=== PATIENT | female | born 1955 | race Caucasian/White ===

== ENCOUNTER 2018-07-18 12:44 | Inpatient (IN) ==
[2018-07-18] MEDS ORDERED: ACETAMINOPHEN 325 MG TABLET PO PRN (15:55)
[2018-07-18] MEDS ORDERED: NALOXONE HCL 0.4 MG/ML VIAL IV PRN (15:55)
[2018-07-18] MEDS ORDERED: VANCOMYCIN PER PHARMACY IV ONE (16:14)
[2018-07-18] MEDS ORDERED: methylPREDNISolone SOD SUCC 125 MG/2 ML VIAL IV ONE (16:14)
[2018-07-18] MEDS ORDERED: PIPERACILLIN SODIUM/TAZOBACTAM 2.25 GM in DEXTROSE 5% IN WATER 50 ML IV SCH (16:15)
[2018-07-18] MEDS ORDERED: DEXTROSE 31 GM ORAL.SUSP PO PRN (16:16)
[2018-07-18] MEDS ORDERED: DEXTROSE 50% 50 ML VIAL IV PRN (16:16)
--- NOTE | 2018-07-18 16:28 | Internal Med History&Physical ---
Medical - H&P: HPI Patient information: Note initiated : 07/18/18 at 4:20 pm Service Date, if different from initiated Date: [] Patient: Cherelle Mcpherson 62 y/o F admitted on 07/18/18 for Fluid Overload. Chief Complaint: [] History of present illness: Ms. Mcpherson is a 62 year old F with h/o ESRD on HD, recently discharged from [facility] for Sepsis, Respiratory failure and pneumonia to SNF, the patient notes that at the time of discharge she was not feeling quite at baseline. The patient was admitted to the hospital with the diagnosis of chf exacerbation , copd exacerbation, sepsis and pneumonia, treated with broad spectrum antibiotics, vanco,zosyn levaquin and discharged eventually on levaquin and steroid taper The patient was supposed to get HD today as outpatient The patient has h/o ESBL ecoli pna this year? The patient notes that she was feeling short of breath, since the time of discharge, coughing but no sputum production, and tired. The patient notes that her shortness of breath has progressively been getting worse since the time of discharge. This morning she was very short of breath and she refused to go for dialysis and was sent to the emergency room for further evaluation. She was noted hypoxic with oxygen saturation around 80% as per the ED provider at [facility]. The patient had a chest x-ray done at [facility] which showed CHF as per the ED provider. The official report however chest x-ray does not mention congestive heart failure. The patient had lab work done which shows a WBC count of 10.3 hemoglobin 13 platelets 286, potassium 5.4 bicarbonate 23 BUN 48 creatinine 5.5 calcium 8.5 glucose 166. Venous blood gas shows a pH of 7.37 PCO2 46 PO2 46. BNP elevated at 15,156 was around 5000 a week ago. [facility] does not have dialysis at their center and the pillar man recommended the patient be transferred to [facility] for further management as we do have dialysis facilities available. - Constitutional Constitutional: Present: fatigue, headache(s), malaise. Absent: fever(s) - EENT Eyes: Absent: change in vision - Cardiovascular Cardiovascular: Present: dyspnea on exertion. Absent: chest pain, palpatations , pedal edema - Respiratory Respiratory: Present: cough, dyspnea, dyspnea on exertion, wheezing. Absent: hemoptysis - Gastrointestinal Gastrointestinal: Absent: loose stools, melena, nausea, vomiting - Genitourinary Genitourinary: Absent: urinary frequency, urinary urgency - Musculoskeletal Musculoskeletal: Absent: joint swelling, neck pain - Integumentary Integumentary: Absent: bleeding lesions, wounds, jaundice - Neurological Neurological: Present: headache(s). Absent: focal weakness, syncope, vertigo - Psychiatric Psychiatric: Present: anxiety, depression - Endocrine Endocrine: Absent: polydipsia, polyphagia, polyuria - Hematologic/Lymphatic Hematologic/Lymphatic: Present: easy bruising. Absent: easy bleeding - Allergic/Immunologic Allergic/Immunologic: Absent: tongue swelling, uticaria, lip swelling Medical - H&P: PMH Medical history: Medical History PAST MEDICAL HISTORY: 1. Coronary artery disease with stable angina. She has had stenting performed on 4 separate occasions. 2. End-stage renal disease for which the patient is maintained on hemodialysis as noted previously. 3. Chronic obstructive pulmonary disease, oxygen dependent. 4. Iron deficiency anemia. 5. Type 2 diabetes mellitus. 6. Atheromatous disease of the thoracic aorta extending into the great vessels of the arch. She also has moderate to high-grade stenosis of the right brachiocephalic artery at the bifurcation along with scattered plaque in the bilateral common carotid arteries. In addition, high grade stenosis is noted at the proximal aspect of the left internal carotid artery with moderate stenosis of the right proximal internal carotid artery. 7. Type 2 diabetes mellitus. 8. Frequent episodes of pneumonia. 9. Constipation. 10. Depression. 11. Osteoporosis. 12. Prior episodes of hypotension following dialysis. 13. Diastolic dysfunction, congestive heart failure. 14. Essential hypertension. 15. Dyslipidemia. 16. Renal osteodystrophy/renal bone disease. 17. Generalized anxiety disorder. 18. Cervical cancer. 19. Borderline personality disorder. 20. Migraine headaches. 21. Seizure disorder with her last episode several years ago. 22. Prior alcohol abuse. 23. Hiatal hernia. 24. Diabetic neuropathy. 25. Posttraumatic stress disorder. 26. Prior bout of hyperkalemia. 27. Prior cerebrovascular accident/transient ischemic attack. 28. Osteoarthritis/degenerative joint disease. Surgical history: 1. Status post open reduction and internal fixation of a right fibular fracture at the ankle. 2. Status post dialysis port placement. 3. Status post cardiac stenting on 4 occasions between the years of 1979 and 1999. 4. Status post section times 2. 5. Status post cholecystectomy. 6. Status post total abdominal hysterectomy with bilateral salpingo-oophorectomy for treatment of her cervical cancer. 7. Status post tonsillectomy. 8. Status post appendectomy. 9. Status post placement of several arteriovenous fistulas with failure and she is scheduled for a revision here in 4 days. 10. Status post bilateral cataract extractions. 11. Status post ovarian cyst removal. 12. Status post right rotator cuff repair. 13. Status post esophagogastroduodenoscopy. 14. Status post esophageal dilatation. 15. Status post colonoscopy with polypectomy. 16. Status post hemorrhoidal removal in 2003 and again in 2013. Pertinent family history: Mother developed coronary artery disease in her 60s expiring of congestive heart failure at 82. Father developed tuberculosis and of a motor vehicle accident at 49. One sister of gastric cancer at 65 years of age. Another sister of a brain tumor 58 years of age. She has 1 living sister suffering from multiple sclerosis. Social history: Lives at [facility] Active smoker uses THC, Denies other recreational drugs or etoh. Medical - H&P: Meds Home Medications Medication Instructions Recorded Confirmed Type Ascorbic Acid [Vitamin C] 250 mg PO BID 07/11/15 07/11/15 History Aspirin [Aspirin EC] 325 mg PO DAILY 07/11/15 07/11/15 History Atorvastatin [Lipitor] 20 mg PO HS 07/11/15 07/11/15 History Carvedilol [Coreg] 6.25 mg PO BID 07/11/15 07/11/15 History Cetirizine HCl [Zyrtec] 10 mg PO HS 07/11/15 07/11/15 History Cholecalciferol (Vitamin D3) 5,000 unit PO DAILY 07/11/15 07/11/15 History [Vitamin D] Citalopram Hydrobromide [Celexa] 40 mg PO DAILY 07/11/15 07/11/15 History Docusate Sodium [Stool Softener] 100 mg PO BID 07/11/15 07/11/15 History Furosemide [Lasix] 80 mg PO BID 07/11/15 07/11/15 History Gabapentin [Neurontin] 300 mg PO BID 07/11/15 07/11/15 History HYDROcodone/ACETAMINOPHEN [Lortab 1 tab PO Q6 PRN 07/11/15 07/11/15 History 10-325 mg Tablet] Ipratropium/Albuterol [Duoneb] 3 ml NEB Q4HP PRN 07/11/15 07/11/15 History Lisinopril [Zestril] 40 mg PO DAILY 07/11/15 07/11/15 History Montelukast [Singular] 10 mg PO HS 07/11/15 07/11/15 History Pantoprazole Sodium [Protonix] 40 mg PO DAILY 07/11/15 07/11/15 History QUEtiapine FUMARATE [Seroquel] 50 mg PO HS 07/11/15 07/11/15 History Sevelamer [Renvela] 1,600 mg PO TIDCC 07/11/15 07/11/15 History Topiramate [Topamax] 50 mg PO BID 07/11/15 07/11/15 History Vit B Cmplx 3/FA/Vit C/Biotin 1 each PO DAILY 07/11/15 07/11/15 History [Malou-Suzan Rx Tablet] amLODIPine [Norvasc] 10 mg PO DAILY 07/11/15 07/11/15 History Cefdinir 300 mg PO DAILY 5 Days capsule 07/13/15 Rx guaiFENesin/CODEINE [Robitussin AC] 10 ml PO Q4HP PRN #600 ml 07/13/15 Rx Allergies Allergy/AdvReac Type Severity Reaction Status Date / Time Sulfa (Sulfonamide Allergy Mild Rash Verified 07/11/15 05:10 Antibiotics) Medical - H&P: Exam - Constitutional Vitals: Temp Pulse Resp BP Pulse Ox 97.4 F 104 H 20 120/70 91 07/18/18 15:49 07/18/18 15:01 07/18/18 15:49 07/18/18 15:49 07/18/18 15:49 Exam: GENERAL: The patient is a well-developed, well-nourished in no apparent distress. Is alert and oriented x3. VITAL SIGNS: Reviewed and as noted elsewhere. HEENT: Head is normocephalic and atraumatic. Extraocular muscles are intact. Pupils are equal, round, and reactive to light. Nares appeared normal. Mouth appears any without lesions. Mucous membranes are moist. NECK: Normal to inspection, Supple, No lymphadenopathy or thyromegaly. LUNGS: Air entry equal on both sides, lindsay basilar crackles, lindsay exp mild wheezing, no rhonci, no accessory muscle use HEART: Regular rate and rhythm normal, S1 and S2 heard, s4 heard, S3 or Rub, Noted systolic murmur mitral and tricuspid region. ABDOMEN: Soft, nontender, and nondistended. Positive bowel sounds. No hepatosplenomegaly was noted. EXTREMITIES: No cyanosis, clubbing, rash, lesions or edema. NEUROLOGIC: Cranial nerves II through XII are grossly intact. Motor and Sensory System Grossly Intact PSYCHIATRIC: Normal affect, Normal Mood. Appropriate Behavior. SKIN: No ulceration or wounds noted, No jaundice, No rash noted. Medical - H&P: Reslt - Impressions Chest CT 07/14 Impression: The patient has numerous pulmonary nodules. The majority of which are similar to April 06, 2018. There are, however, 2 distinct rounded new lesions. One is in the lingula/left upper lobe and measures 4 cm in diameter and is either rounded pneumonia or malignancy and one is in the left lower lobe and measures 17 mm and is either rounded pneumonia or malignancy. Close follow up recommended. Abdomen and Pelvis 07/14 Impression: Abnormal appearance of the bilateral lung bases with findings suggestive of fluid overload/interstitial edema. Additionally, there are bibasilar reticular nodular infiltrates possibly representing inflammatory or infectious etiology/septic emboli. The possibility of malignancy could also be included. Post cholecystectomy. Extensive atheromatous disease. Severe renal atrophy. Hyperdense nodules on the left kidney for which I recommend a follow up CT in 3-6 months. Findings suspicious for a teratoma in the right side of the pelvis. Other observations, as above. Findings regarding the lungs were discussed with Dr. An. Chest X ray Findings & Impression: 1. Stable left sided dialysis catheter in good position. 2. Mild interval improvement in the interstitial prominence with persistent opacities in the lingula and left lower lobe. 3. Heart, diaphragms, pleura, osseous structures unchanged. 4. There is a stable background of interstitial fibrotic change. Cardiac Cath 04/15/18 ASSESSMENT: 1. Clinical history of known coronary disease with remote stenting in a patient with numerous health issues, most significantly chronic kidney failure with hemodialysis. She is now having symptoms very concerning for myocardial ischemia with chest discomfort, dyspnea and diaphoresis. 2. Patency of the stented right coronary artery. 3. Diffuse atherosclerosis with the ostial left main coronary artery being of some concern. The ability to precisely define that ostial stenosis was hampered by how thin the shelf-like lesion is. Preliminary IVUS suggested a narrowing as tight as 5.7 square millimeters. However, Chromaflo suggested that we might not be measuring exactly correct borders. It was, therefore, elected to not proceed with intervention and performed Dobutamine stress echocardiography, scheduled for later today. 4. High grade bifurcation stenosis in the unusual septal perforating system arising from the LAD artery. This is unlikely to be the cause of her symptoms. Medical - H&P: A/P - Narrative A/P Narrative: Labs done at outside hospital reviewed A/P Acute Hypoxic Respiratory failure- Due to CHF, PNA? patient is presently on L oxygen via nasal canula, try to maintain osat > 90. X ray chest is neg for chf, will get CT chest with IV contrast to r/o PE, Pneumonia/ HCAP- was treated with IV vanco /zosyn[facility]levoflox [facility], however discharged on oral levofloxacin. I noted that in notes there is mention of ESBL pna in the past. Will treat patient with IV vancomycin and IV meropenum for now, Sputum cultures (induced sputum), Blood culture ordered. Lung Mass- Noted on CT during last hospitalization, Repeat CT should help evaluate this. May need biopsy. CHF- Chest x ray neg for CHF, however Exam does have lindsay crackles, Given ESRD, pt will undergo HD today, ESRD on HD- Dr Tafoya has been consulted, HD planned Hyperkalemia- K 5.4, monitor on tele, for now, HD planned. Acute COPD exacerbation- Not sure if completely resolved. Duonebs q4hrs, IV solumedrol for now, then po prednisone 40mg qAM. DM- SSI insulin for glucose control CAD/HTN/HLD/TIA/CVA - stable, resume home medications once verified Depression/PTSD/Anxiety- Stable resume home meds once verified. Seizure disorder- Stable DVT hep sq REnal Diabetic CArdiac diet DNR code status. Medical - H&P: Qual - VTE Deep Vein Thrombosis/Pulmonary Embolism Present on Admission: No
[2018-07-18] MEDS ORDERED: IOPAMIDOL 100 ML BOTTLE IV ONE (16:32)
--- NOTE | 2018-07-18 16:52 | Cat Scan Report ---
CLINICAL INFORMATION: Chest pain. Possible pulmonary embolism. COMPARISON: Most recent previous chest x-ray dated 07/12/2015 TECHNIQUE: Axial images obtained through the chest. 60 mL intravenous contrast was administered, and scanning was performed during pulmonary arterial phase. Sagittally and coronally reformatted images were obtained. MIP reformatted images. FINDINGS: Patient is scheduled for dialysis and has a history of renal failure. Main pulmonary artery, right pulmonary artery, left pulmonary artery are negative. No intraluminal filling defect. No lobar, segmental, or subsegmental abnormalities. Examination is negative for pulmonary embolism. No evidence for right heart strain. There is very severe coronary artery calcification. Lungs are diffusely abnormal consistent with very severe emphysema. There is a left upper lobe mass which abuts the left fissure. This measures 2.5 x 2.4 x 3.7 cm. Appearance is consistent with malignancy. There are multiple other noncalcified pulmonary parenchymal masses consistent with metastases. These are bilateral. There is a paraspinal left lower lobe mass which is adjacent to the descending aorta and anterolateral lateral aspects of a vertebral body. This measures 1.8 cm maximally. No focal pulmonary parenchymal consolidation. No evidence for pneumonia. Linda and mediastinum are negative. No pathologic adenopathy. No axillary adenopathy. No supraclavicular adenopathy. Upper abdomen is negative. No hepatic mass. Caudal aspects of the liver are not imaged. There is very severe calcified atherosclerotic disease within the abdominal aorta, superior mesenteric artery, and renal arteries. The kidneys are markedly atrophic. No thoracic compression fracture. No lytic lesion. Sternum and ribs are negative IMPRESSION: 1. Negative pulmonary CTA. No pulmonary embolism 2. Very severe emphysema 3. Multiple pulmonary parenchymal masses. This may be due to primary lung cancer and multiple metastases. Metastatic disease from another primary is also possible 4. There is severe calcified atherosclerotic disease. Bilateral renal atrophy. The exam was performed using radiation dose optimization techniques including, but not limited to, automated exposure control, adjustment of the mA and/or kV according to patient size and use of iterative reconstruction technique. Interpreted and Authenticated by: Joe Mcbride 07/18/18
[2018-07-18] MEDS ORDERED: VANCOMYCIN 1,000 MG in 0.9 % SODIUM CHLORIDE 250 ML IV ONE (17:00)
[2018-07-18] MEDS: INSULIN LISPRO 1 UNIT/0.01 ML UNIT SQ SCH ×2 (17:19→22:45)
[2018-07-18] MEDS ORDERED: MEROPENEM 0.5 GM in 0.9 % SODIUM CHLORIDE 100 ML IV SCH (18:00)
[2018-07-18] MEDS: IPRATROPIUM/ALBUTEROL 3 ML AMPUL.NEB NEB SCH ×2 (18:38→23:28)
[2018-07-18] MEDS: 0.9 % SODIUM CHLORIDE 10 ML SYRINGE IV SCH (22:00)
[2018-07-18] MEDS: HEPARIN 5,000 UNIT/ML VIAL SQ SCH (22:28)
[2018-07-18] MEDS: ONDANSETRON 4 MG/2 ML VIAL IV PRN (23:31)
[2018-07-19] MEDS: 0.9 % SODIUM CHLORIDE 10 ML SYRINGE IV SCH ×4 (03:09→20:57)
[2018-07-19] MEDS: IPRATROPIUM/ALBUTEROL 3 ML AMPUL.NEB NEB SCH ×6 (03:09→23:02)
[2018-07-19 05:40] LABS: Basophils # (Auto) 0 K/mcL (0.0-0.3); Basophils % (Auto) 0.1 % (0.0-2.0); Eosinophils # (Auto) 0 K/mcL (0.0-0.7); Eosinophils % (Auto) 0 % (0.0-7.0); Granulocytes % (Auto) 86.6 % (38.0-78.0); Lymphocytes # (Auto) 0.8 K/mcL (1.5-4.8); Lymphocytes % (Auto) 7.6 % (15.5-49.0); Mean Cell Volume 92.4 fL (80.0-100.0); Mean Corpuscular HGB Conc 31.7 g/dL (31.0-36.0); Monocytes # (Auto) 0.6 K/mcL (0.1-0.9); Monocytes % (Auto) 5.7 % (1.0-12.0); Platelet Count 274 K/mcL (140-440); RBC 4.51 M/mcL (4.00-5.20); Red Cell Distribution Width 18.2 % (11.5-14.5)
[2018-07-19 05:46] LABS: ALT/SGPT 15 U/l (0-40); Albumin 3.4 gm/dL (3.2-5.2); Albumin/Globulin Ratio 1.1 (1.0-2.3); Alkaline Phosphatase 148 U/L (39-117); Bilirubin,Direct < 0.2 mg/dL (0.0-0.3); Blood Urea Nitrogen 30 mg/dl (8-23); Gamma Glutamyl Transpeptidase 62 U/L (5-36); Uric Acid 4.1 mg/dL (2.5-8.0)
[2018-07-19] MEDS ORDERED: VANCOMYCIN PER PHARMACY IV SCH (07:15)
[2018-07-19] MEDS: HEPARIN 5,000 UNIT/ML VIAL SQ SCH ×2 (08:08→20:55)
[2018-07-19] MEDS: INSULIN LISPRO 1 UNIT/0.01 ML UNIT SQ SCH ×4 (08:08→21:03)
[2018-07-19] MEDS: predniSONE 20 MG TABLET PO SCH (08:09)
[2018-07-19 08:57] LABS: Vancomycin,Random 22.8 ug/mL
[2018-07-19] MEDS ORDERED: MEROPENEM 0.5 GM VIAL IV SCH (09:00)
[2018-07-19] MEDS: ONDANSETRON 4 MG/2 ML VIAL IV PRN ×2 (09:19→16:01)
[2018-07-19] MEDS ORDERED: PNEUMOCOCCAL 23-VAL P-SAC VAC 0.5 ML VIAL IM ONE (10:00)
[2018-07-19] MEDS: MEROPENEM 0.5 GM in 0.9 % SODIUM CHLORIDE 50 ML IV SCH (13:03)
--- NOTE | 2018-07-19 14:54 | Internal Med Progress Note ---
Medical - PN: Subj Patient information: Note initiated : 07/19/18 at 2:47 pm Service Date, if different from initiated Date: [] Patient: Cherelle Mcpherson 62 y/o F admitted on 07/18/18 for Fluid Overload. Chief Complaint: [] Interval history: Ms. Mcpherson is a 62 year old F with h/o ESRD on HD, recently discharged from [facility] for Sepsis, Respiratory failure and pneumonia to SNF, the patient notes that at the time of discharge she was not feeling quite at baseline. The patient was admitted to the hospital with the diagnosis of chf exacerbation , copd exacerbation, sepsis and pneumonia, treated with broad spectrum antibiotics, vanco,zosyn levaquin and discharged eventually on levaquin and steroid taper The patient was supposed to get HD today as outpatient The patient has h/o ESBL ecoli pna this year? The patient notes that she was feeling short of breath, since the time of discharge, coughing but no sputum production, and tired. The patient notes that her shortness of breath has progressively been getting worse since the time of discharge. This morning she was very short of breath and she refused to go for dialysis and was sent to the emergency room for further evaluation. She was noted hypoxic with oxygen saturation around 80% as per the ED provider at [facility]. The patient had a chest x-ray done at [facility] which showed CHF as per the ED provider. The official report however chest x-ray does not mention congestive heart failure. The patient had lab work done which shows a WBC count of 10.3 hemoglobin 13 platelets 286, potassium 5.4 bicarbonate 23 BUN 48 creatinine 5.5 calcium 8.5 glucose 166. Venous blood gas shows a pH of 7.37 PCO2 46 PO2 46. BNP elevated at 15,156 was around 5000 a week ago. [facility] does not have dialysis at their center and the signs sales representative recommended the patient be transferred to [facility] for further management as we do have dialysis facilities available. 07/19 Patient seen and examined, no acute overnight events. The patient's oxygen needs still running between 3-4 L. She had dialysis yesterday. Labs this morning are stable. She still notes that she is significantly short of breath but better compared to yesterday. During my evaluation today she was sitting in the chair comfortable and was tolerating some crossword puzzles. I reviewed the CT findings with her as well as the possibility of there being a malignant mass on the chest CT. She notes she was unaware of this finding in the past. Reviewed with her the need for biopsy, which she agrees to. We do not have pulmonary service available at this time. Pertinent ROS: Denies headache, dizziness Denies chest pain, palpitations Improving cough and shortness of breath Denies abdominal pain, nausea or vomiting. - Constitutional Vitals: Vital Signs Temp Pulse Resp BP Pulse Ox 98.4 F 110 H 18 106/81 90 07/19/18 11:14 07/19/18 10:49 07/19/18 11:14 07/19/18 11:14 07/19/18 11:14 Period Temp Pulse Resp BP Sys/Talley Pulse Ox Last 24 Hr 97.4 F-98.4 F 52-110 16-24 86-192/27-81 89-96 Intake and Output 07/19/18 07/19/18 07/19/18 05:59 13:59 21:59 Intake Total 460 / 460 Balance 460 / 460 Weight 158 lb 8 oz Patient Weight 07/20/18 05:59 Weight 158 lb 8 oz Intake & Output: Intake & Output 07/19/18 07/19/18 07/19/18 05:59 13:59 21:59 Intake Total 460 / 460 Balance 460 / 460 Weight 158 lb 8 oz Intake: IV 100 / 100 Oral 360 / 360 Exam: Constitutional; Afebrile, cooperative, alert, not in distress. Eyes- No icterus, , No periorbital swelling Ears- Ext ear normal, hearing normal to conversation. Neck- Midline trachea, supple Respiratory system: Air entry reduced on both sides but equal on both sides. Mild expiratory wheezing noted. Much improved crackles compared to yesterday CVS- Rate rhythm regular, S1,S2 heard, no gallop, no rub. Abdomen- Soft nontender abdomen, no organomegaly, no tenderness, no guarding or rigidity, SERVICE ASSISTANT- AOOx3, moving all extremities, no gross focal deficit noted. Medical - PN: Obj Da - Labs CBC & Chem 7: 07/19/18 04:26 07/19/18 04:26 Labs: Abnormal Lab Results 07/19/18 07/19/18 04:26 04:26 RDW 18.2 H Gran % 86.6 H Lymph % (Auto) 7.6 L Gran # 8.9 H Lymph # (Auto) 0.8 L Sodium 132 L Chloride 91 L Anion Gap 18.0 H BUN 30 H Creatinine 3.7 H Glucose 294 H Phosphorus 4.8 H GGT 62 H Alkaline Phosphatase 148 H Triglycerides 163 H Meds: Medications Acetaminophen (Tylenol) 650 mg PO Q6HP PRN PRN Reason: PAIN/FEVER > 101 Hydrocodone Bitart/Acetaminophen ([place] 5/325mg) 1 tab PO Q4HP PRN PRN Reason: Pain Level > 5 Albuterol/Ipratropium (Duoneb) 3 ml NEB Q4HRT [facility] Last Admin: 07/19/18 10:35 Dose: 3 ml Dextrose (Dextrose 50%) 0 ml IV UD PRN PRN Reason: Hypoglycemia Diagnostic Test (Pha) (Accu-Chek) 1 each FS ACHS [facility] Last Admin: 07/19/18 11:51 Dose: 1 each Glucose (Insta-Glucose) 15 gm PO PRN PRN PRN Reason: Hypoglycemia Heparin Sodium (Porcine) (Heparin) 5,000 unit SQ Q12 [facility] Last Admin: 07/19/18 08:08 Dose: 5,000 unit Meropenem 0.5 gm/ Sodium (Chloride) 50 mls @ 50 mls/hr IV DAILY [facility] Last Admin: 07/19/18 13:03 Dose: 50 mls/hr Insulin Human Lispro (Humalog) [address] [facility]; Protocol Last Admin: 07/19/18 11:51 Dose: 3 units Naloxone HCl (Narcan) 0.1 mg IV Q2MIN PRN PRN Reason: Opiate Reversal Ondansetron HCl (Zofran) 4 mg IV Q4HP PRN PRN Reason: Nausea And Vomiting Last Admin: 07/19/18 09:19 Dose: 4 mg Prednisone (Prednisone) 40 mg PO QAC [facility] Last Admin: 07/19/18 08:09 Dose: 40 mg Sodium Chloride (Saline Flush) 10 ml IV Q8 [facility] Last Admin: 07/19/18 13:03 Dose: 10 ml Vancomycin HCl (Vancomycin Per Pharmacy) 1 order IV UD [facility] Medical - PN: A/P - Time Spent With Patient Total time spent is greater than 50% in coordination of care (as documented) at patient's floor/unit and/or counseling patient: - Narrative A/P Narrative: A/P Acute on chronic Hypoxic Respiratory failure-Due to CHF and COPD exacerbation, with PNA, on 4L oxygen at present, [place] oxygen is 3 L Pneumonia/ HCAP- was treated with IV vanco /zosyn/levoflox at [facility], however discharged on oral levofloxacin. I noted that in notes there is mention of ESBL pna in the past. Will treat patient with IV vancomycin and IV meropenum for now, d2 on 07/19 Sputum cultures (induced sputum), Blood culture ordered. await results Lung Mass- Noted on CT during last hospitalization, Repeat CT should help evaluate this. May need biopsy. Once Acute COPD settles will plan for biopsy. CHF- Chest x ray neg for CHF, however Exam does have lindsay crackles, s/p HD with good response ESRD on HD- Dr Tafoya has been consulted, HD as per them Hyperkalemia- resolved. Acute COPD exacerbation- Not sure if completely resolved. Duonebs q4hrs, IV solumedrol for now, then po prednisone 40mg qAM. DM- SSI insulin for glucose control CAD/HTN/HLD/TIA/CVA - stable, resume home medications once verified Depression/PTSD/Anxiety- Stable resume home meds once verified. Seizure disorder- Stable DVT hep sq REnal Diabetic CArdiac diet DNR code status. Medical - PN: Qual - VTE Deep Vein Thrombosis/Pulmonary Embolism Present on Admission: No
[2018-07-19] MEDS: HYDROcodone/APAP 5/325MG TABLET PO PRN ×2 (16:01→20:54)
[2018-07-20] MEDS: IPRATROPIUM/ALBUTEROL 3 ML AMPUL.NEB NEB SCH ×6 (03:15→22:55)
[2018-07-20 05:49] LABS: Basophils # (Auto) 0 K/mcL (0.0-0.3); Basophils % (Auto) 0.1 % (0.0-2.0); Eosinophils # (Auto) 0 K/mcL (0.0-0.7); Eosinophils % (Auto) 0.3 % (0.0-7.0); Granulocytes % (Auto) 80.7 % (38.0-78.0); Lymphocytes # (Auto) 1.4 K/mcL (1.5-4.8); Lymphocytes % (Auto) 12.2 % (15.5-49.0); Mean Cell Volume 91.7 fL (80.0-100.0); Mean Corpuscular HGB Conc 32.5 g/dL (31.0-36.0); Monocytes # (Auto) 0.8 K/mcL (0.1-0.9); Monocytes % (Auto) 6.7 % (1.0-12.0); Platelet Count 310 K/mcL (140-440); RBC 4.14 M/mcL (4.00-5.20); Red Cell Distribution Width 18.5 % (11.5-14.5)
[2018-07-20 06:17] LABS: ALT/SGPT 11 U/l (0-40); Albumin 3.3 gm/dL (3.2-5.2); Albumin/Globulin Ratio 1.4 (1.0-2.3); Alkaline Phosphatase 132 U/L (39-117); Bilirubin,Direct < 0.2 mg/dL (0.0-0.3); Blood Urea Nitrogen 63 mg/dl (8-23); Gamma Glutamyl Transpeptidase 48 U/L (5-36); Uric Acid 7.1 mg/dL (2.5-8.0)
[2018-07-20] MEDS: HYDROcodone/APAP 5/325MG TABLET PO PRN ×3 (07:37→18:33)
[2018-07-20] MEDS: predniSONE 20 MG TABLET PO SCH (07:37)
[2018-07-20] MEDS: 0.9 % SODIUM CHLORIDE 10 ML SYRINGE IV SCH ×3 (07:40→21:14)
[2018-07-20] MEDS: INSULIN LISPRO 1 UNIT/0.01 ML UNIT SQ SCH ×4 (07:40→21:21)
[2018-07-20] MEDS ORDERED: MEROPENEM 0.5 GM in 0.9 % SODIUM CHLORIDE 50 ML IV SCH ×2 (09:00→10:00)
[2018-07-20] MEDS: MEROPENEM 0.5 GM in 0.9 % SODIUM CHLORIDE 50 ML IV SCH (09:45)
[2018-07-20] MEDS: HEPARIN 5,000 UNIT/ML VIAL SQ SCH ×2 (09:53→21:13)
[2018-07-20] MEDS ORDERED: ONDANSETRON 4 MG/2 ML VIAL IV PRN (12:42)
[2018-07-20] MEDS ORDERED: DEXTROSE 50% 50 ML VIAL IV PRN (12:42)
[2018-07-20] MEDS ORDERED: VANCOMYCIN PER PHARMACY IV SCH (12:42)
[2018-07-20] MEDS ORDERED: ACETAMINOPHEN 325 MG TABLET PO PRN (12:42)
[2018-07-20] MEDS ORDERED: NALOXONE HCL 0.4 MG/ML VIAL IV PRN (12:42)
[2018-07-20] MEDS ORDERED: DEXTROSE 31 GM ORAL.SUSP PO PRN (12:42)
--- NOTE | 2018-07-20 13:01 | Internal Med Progress Note ---
Medical - PN: Subj Patient information: Note initiated : 07/20/18 at 12:58 pm Service Date, if different from initiated Date: [] Patient: Cherelle Mcpherson 62 y/o F admitted on 07/18/18 for Fluid Overload. Chief Complaint: [] Interval history: Ms. Mcpherson is a 62 year old F with h/o ESRD on HD, recently discharged from [facility] for Sepsis, Respiratory failure and pneumonia to SNF, the patient notes that at the time of discharge she was not feeling quite at baseline. The patient was admitted to the hospital with the diagnosis of chf exacerbation , copd exacerbation, sepsis and pneumonia, treated with broad spectrum antibiotics, vanco,zosyn levaquin and discharged eventually on levaquin and steroid taper The patient was supposed to get HD today as outpatient The patient has h/o ESBL ecoli pna this year? The patient notes that she was feeling short of breath, since the time of discharge, coughing but no sputum production, and tired. The patient notes that her shortness of breath has progressively been getting worse since the time of discharge. This morning she was very short of breath and she refused to go for dialysis and was sent to the emergency room for further evaluation. She was noted hypoxic with oxygen saturation around 80% as per the ED provider at [facility]. The patient had a chest x-ray done at [facility] which showed CHF as per the ED provider. The official report however chest x-ray does not mention congestive heart failure. The patient had lab work done which shows a WBC count of 10.3 hemoglobin 13 platelets 286, potassium 5.4 bicarbonate 23 BUN 48 creatinine 5.5 calcium 8.5 glucose 166. Venous blood gas shows a pH of 7.37 PCO2 46 PO2 46. BNP elevated at 15,156 was around 5000 a week ago. [facility] does not have dialysis at their center and the fine arts packer recommended the patient be transferred to [facility] for further management as we do have dialysis facilities available. 07/19 Patient seen and examined, no acute overnight events. The patient's oxygen needs still running between 3-4 L. She had dialysis yesterday. Labs this morning are stable. She still notes that she is significantly short of breath but better compared to yesterday. During my evaluation today she was sitting in the chair comfortable and was tolerating some crossword puzzles. I reviewed the CT findings with her as well as the possibility of there being a malignant mass on the chest CT. She notes she was unaware of this finding in the past. Reviewed with her the need for biopsy, which she agrees to. We do not have pulmonary service available at this time. 07/20 Pt seen examined, feels much better, no acute overnight issues Pt sleeping comfortalby today xfer to med surg She noted that she would not like to have a biopsy at this time. Advised to consider talking with family and her primary provider. Pertinent ROS: Denies headache, dizziness Denies chest pain, palpitations Denies cough or shortness of breath (much improved) Denies abdominal pain, nausea or vomiting. - Constitutional Vitals: Vital Signs Temp Pulse Resp BP Pulse Ox 97.8 F 95 H 14 120/74 90 07/20/18 11:38 07/20/18 11:38 07/20/18 11:38 07/20/18 11:38 07/20/18 08:00 Period Temp Pulse Resp BP Sys/Talley Pulse Ox Last 24 Hr 97.4 F-98.4 F 60-112 14-22 103-159/68-91 90-95 Intake and Output 07/19/18 07/20/18 07/20/18 21:59 05:59 13:59 Intake Total 240 / 240 440 / 440 50 / 50 Output Total 0 / 0 Balance 240 / 240 440 / 440 50 / 50 Weight 158 lb Intake & Output: Intake & Output 07/19/18 07/20/18 07/20/18 21:59 05:59 13:59 Intake Total 240 / 240 440 / 440 50 / 50 Output Total 0 / 0 Balance 240 / 240 440 / 440 50 / 50 Weight 158 lb Intake: IV 50 / 50 Oral 240 / 240 440 / 440 Output: Void Amount 0 / 0 Other: Meal Dinner Percent of Meal Consumed 100% Feeding Ability Independent Exam: Constitutional; Afebrile, cooperative, alert, not in distress. Respiratory system: Air Entry equal on both sides, No crackles no rhonchi. Much improved air entry today, no wheezing heard. CVS- Rate rhythm regular, S1,S2 heard, no gallop, no rub. Abdomen- Soft nontender abdomen, no organomegaly, no tenderness, no guarding or rigidity, SIGN LETTERER- AOOx3, moving all extremities, no gross focal deficit noted. Medical - PN: Obj Da - Labs CBC & Chem 7: 07/20/18 04:15 07/20/18 04:15 Labs: Abnormal Lab Results 07/20/18 07/20/18 07/19/18 04:15 04:15 04:26 WBC 11.4 H RDW 18.5 H Gran % 80.7 H Lymph % (Auto) 12.2 L Gran # 9.2 H Lymph # (Auto) 1.4 L Sodium 132 L Chloride 90 L 91 L Anion Gap 21.0 H 18.0 H BUN 63 H 30 H Creatinine 6.0 H* 3.7 H Glucose 191 H 294 H Phosphorus 4.6 H 4.8 H GGT 48 H 62 H Alkaline Phosphatase 132 H 148 H Total Protein 5.7 L Triglycerides 225 H 163 H 07/19/18 04:26 WBC RDW 18.2 H Gran % 86.6 H Lymph % (Auto) 7.6 L Gran # 8.9 H Lymph # (Auto) 0.8 L Sodium Chloride Anion Gap BUN Creatinine Glucose Phosphorus GGT Alkaline Phosphatase Total Protein Triglycerides Meds: Medications Acetaminophen (Tylenol) 650 mg PO Q6HP PRN PRN Reason: PAIN/FEVER > 101 Hydrocodone Bitart/Acetaminophen ([place] 5/325mg) 1 tab PO Q4HP PRN PRN Reason: Pain Level > 5 Albuterol/Ipratropium (Duoneb) 3 ml NEB Q4HRT [facility] Dextrose (Dextrose 50%) 0 ml IV UD PRN PRN Reason: Hypoglycemia Diagnostic Test (Pha) (Accu-Chek) 1 each FS ACHS [facility] Glucose (Insta-Glucose) 15 gm PO PRN PRN PRN Reason: Hypoglycemia Heparin Sodium (Porcine) (Heparin) 5,000 unit SQ Q12 [facility] Meropenem 0.5 gm/ Sodium (Chloride) 50 mls @ 50 mls/hr IV Q24H [facility] Insulin Human Lispro (Humalog) 0 unit SQ ACHS [facility]; Protocol Naloxone HCl (Narcan) 0.1 mg IV Q2MIN PRN PRN Reason: Opiate Reversal Ondansetron HCl (Zofran) 4 mg IV Q4HP PRN PRN Reason: Nausea And Vomiting Prednisone (Prednisone) 40 mg PO QAMCC [facility] Sodium Chloride (Saline Flush) 10 ml IV Q8 [facility] Vancomycin HCl (Vancomycin Per Pharmacy) 1 order IV UD [facility] Medical - PN: A/P - Time Spent With Patient Total time spent is greater than 50% in coordination of care (as documented) at patient's floor/unit and/or counseling patient: - Narrative A/P Narrative: A/P Acute on chronic Hypoxic Respiratory failure-Due to CHF and COPD exacerbation, with PNA, on 3L oxygen at present,back to baseline. Pneumonia/ HCAP- was treated with IV vanco /zosyn/levoflox at [facility], however discharged on oral levofloxacin. I noted that in notes there is mention of ESBL pna in the past. Will treat patient with IV vancomycin and IV meropenum for now, d3 on 07/20 Sputum cultures (induced sputum), Blood culture ordered. await results, neg growth so far. Lung Mass- Noted on CT , patient has declined a biospy, aware that this could mean that she will not live if this is cancer. I have advised her to talk with her primary provider CHF- Chest x ray neg for CHF, s/p HD ESRD on HD- Dr Tafoya has been consulted, HD as per them Hyperkalemia- resolved. Acute COPD exacerbation- improving, back to baseline oxygen needs air entry better, no wheeze noted. DM- SSI insulin for glucose control CAD/HTN/HLD/TIA/CVA - stable, resumed home medications Depression/PTSD/Anxiety- Stable resumed home meds Seizure disorder- Stable DVT hep sq Renal Diabetic Cardiac diet DNR code status. Medical - PN: Qual - VTE Deep Vein Thrombosis/Pulmonary Embolism Present on Admission: No
[2018-07-20] MEDS: FUROSEMIDE 80 MG TABLET PO SCH (14:01)
[2018-07-20] MEDS: GABAPENTIN 300 MG CAPSULE PO SCH (14:01)
[2018-07-20] MEDS: ISOSORBIDE MONONITRATE 30 MG TAB.XL.24H PO SCH (14:01)
[2018-07-20] MEDS: CLOPIDOGREL 75 MG TABLET PO SCH (14:01)
[2018-07-20] MEDS: DOCUSATE SODIUM 100 MG CAPSULE PO SCH (21:13)
[2018-07-20] MEDS: POLYVINYL ALCOHOL OPHTH DROPS 15ML BOTTLE OU SCH (21:13)
[2018-07-21] MEDS: IPRATROPIUM/ALBUTEROL 3 ML AMPUL.NEB NEB SCH ×6 (03:53→22:29)
[2018-07-21 05:47] LABS: Basophils # (Auto) 0 K/mcL (0.0-0.3); Basophils % (Auto) 0.1 % (0.0-2.0); Eosinophils # (Auto) 0 K/mcL (0.0-0.7); Eosinophils % (Auto) 0.2 % (0.0-7.0); Granulocytes % (Auto) 86.9 % (38.0-78.0); Lymphocytes # (Auto) 1.1 K/mcL (1.5-4.8); Lymphocytes % (Auto) 8.8 % (15.5-49.0); Mean Cell Volume 91.9 fL (80.0-100.0); Mean Corpuscular HGB Conc 32.5 g/dL (31.0-36.0); Monocytes # (Auto) 0.5 K/mcL (0.1-0.9); Platelet Count 319 K/mcL (140-440); RBC 3.99 M/mcL (4.00-5.20); Red Cell Distribution Width 18.2 % (11.5-14.5)
[2018-07-21 06:43] LABS: ALT/SGPT 11 U/l (0-40); Albumin 3.4 gm/dL (3.2-5.2); Albumin/Globulin Ratio 1.5 (1.0-2.3); Alkaline Phosphatase 134 U/L (39-117); Bilirubin,Direct < 0.2 mg/dL (0.0-0.3); Blood Urea Nitrogen 90 mg/dl (8-23); Gamma Glutamyl Transpeptidase 48 U/L (5-36); Uric Acid 9.7 mg/dL (2.5-8.0)
[2018-07-21] MEDS: ISOSORBIDE MONONITRATE 30 MG TAB.XL.24H PO SCH (09:10)
[2018-07-21] MEDS: predniSONE 20 MG TABLET PO SCH (09:10)
[2018-07-21] MEDS: QUEtiapine 100 MG TABLET PO SCH (09:10)
[2018-07-21] MEDS: CITALOPRAM 20 MG TABLET PO SCH (09:10)
[2018-07-21] MEDS: GABAPENTIN 300 MG CAPSULE PO SCH (09:11)
[2018-07-21] MEDS: ASPIRIN 81 MG TAB.CHEW PO SCH (09:11)
[2018-07-21] MEDS: FUROSEMIDE 80 MG TABLET PO SCH (09:11)
[2018-07-21] MEDS: CLOPIDOGREL 75 MG TABLET PO SCH (09:11)
[2018-07-21] MEDS: DOCUSATE SODIUM 100 MG CAPSULE PO SCH ×2 (09:11→22:10)
[2018-07-21] MEDS: INSULIN GLARGINE, HUMAN 1 UNIT/0.01 ML SQ SCH (09:11)
[2018-07-21] MEDS: INSULIN LISPRO 1 UNIT/0.01 ML UNIT SQ SCH ×4 (09:12→22:09)
[2018-07-21] MEDS: HEPARIN 5,000 UNIT/ML VIAL SQ SCH ×2 (09:12→22:09)
[2018-07-21] MEDS: POLYVINYL ALCOHOL OPHTH DROPS 15ML BOTTLE OU SCH ×2 (11:49→22:10)
--- NOTE | 2018-07-21 12:24 | Nephrology Consult Note ---
History of Present Illness - Reason for Consult Patient information: Note initiated : 07/21/18 at 12:22 pm Patient: RonnitCherelle 62 y/o F admitted on 07/18/18 for Fluid Overload. Consult date: 07/21/18 end stage renal disease Requesting physician: Tomi Rodriguez - Chief Complaint Shortness of breath - History of Present Illness Cherelle Mcpherson is a 62-year-old female with end-stage renal disease on chronic hemodialysis (through left internal jugular tunneled hemodialysis catheter, at [place], on [facility], followed by Dr. Tafoya), right arm AV fistula (not being used) , secondary hyperparathyroidism of renal origin, chronic anemia due to kidney disease, coronary artery disease s/p stents, chronic diastolic heart failure, hyperlipidemia, chronic hypoxic respiratory failure due to chronic obstructive pulmonary disease on continuous home oxygen, recurrent pneumonia, diabetes mellitus type 2, history of CVA, admitted on 07/18/18. Dr. Rodriguez could not reach Dr. Tafoya, his primary senior benefits analyst. Dr. Tafoya is likely out of town. Dr. Rodriguez requested nephrology consultation from [place] for hemodialysis need. Review of Systems Constitutional: lethargy, weakness Nose, mouth and throat: no nasal congestion, no sore throat Cardiovascular: no chest pain, no palpatations Respiratory: cough, dyspnea Gastrointestinal: no abdominal pain, no nausea Genitourinary: no dysuria, no hematuria Musculoskeletal: no back pain, no neck pain Integumentary: no rash, no wounds Neurological: no confusion, no headache(s) Psychiatric: no anxiety, no panic attacks Endocrine: no cold intolerance, no heat intolerance Hematologic/Lymphatic: no easy bleeding, no easy bruising Allergic/Immunologic: no tongue swelling, no uticaria Past History Past medical history: Medical History Chest pain (Acute) Congestive heart failure (Acute) Shortness of Breath (Acute) Acute hypercapnic respiratory failure (Acute) ESRD (end stage renal disease) on dialysis (Chronic) Fluid overload (Acute) Anemia of chronic disease (Chronic) HTN (hypertension) (Chronic) Past surgical history: 1. Status post open reduction and internal fixation of a right fibular fracture at the ankle. 2. Status post right arm AV fistula. 3. Status post cardiac stenting on 4 occasions between the years of 1979 and 1999. 4. Status post section times 2. 5. Status post cholecystectomy. 6. Status post total abdominal hysterectomy with bilateral salpingo-oophorectomy for treatment of her cervical cancer. 7. Status post tonsillectomy. 8. Status post appendectomy. 9. Status post placement of several arteriovenous fistulas with failure and she is scheduled for a revision here in 4 days. 10. Status post bilateral cataract extractions. 11. Status post ovarian cyst removal. 12. Status post right rotator cuff repair. 13. Status post esophagogastroduodenoscopy. 14. Status post esophageal dilatation. 15. Status post colonoscopy with polypectomy. 16. Status post hemorrhoidal removal in 2003 and again in 2013. Past family history: Mother developed coronary artery disease in her 60s expiring of congestive heart failure at 82. Father developed tuberculosis and of a motor vehicle accident at 49. One sister of gastric cancer at 65 years of age. Another sister of a brain tumor 58 years of age. She has 1 living sister suffering from multiple sclerosis. Past social history: Lives at [facility] Active smoker uses THC, Denies other recreational drugs or etoh. Medications and Allergies Home Medications Medication Instructions Recorded Confirmed Type Ascorbic Acid [Vitamin C] 250 mg PO BID 07/11/15 07/18/18 History Citalopram Hydrobromide [Celexa] 40 mg PO DAILY 07/11/15 07/18/18 History Docusate Sodium [Stool Softener] 100 mg PO BID 07/11/15 07/18/18 History Furosemide [Lasix] 80 mg PO DAILY 07/11/15 07/18/18 History Gabapentin [Neurontin] 300 mg PO DAILY 07/11/15 07/18/18 History QUEtiapine FUMARATE [Seroquel] 100 mg PO DAILY 07/11/15 07/18/18 History Vit B Cmplx 3/FA/Vit C/Biotin 1 each PO DAILY 07/11/15 07/18/18 History [[place]-Suzan Rx Tablet] Albuterol Sulfate [Ventolin] 2.5 mg NEB Q2HP PRN 07/18/18 07/18/18 History Ascorbic Acid [Vitamin C] 250 mg PO BID 07/18/18 07/18/18 History Aspirin [Aspirin EC] 81 mg PO DAILY 07/18/18 07/18/18 History Clopidogrel Bisulfate [Plavix] 75 mg PO DAILY 07/18/18 07/18/18 History Insulin Glargine, Human [Lantus] 12 unit SQ DAILY 07/18/18 07/18/18 History Isosorbide Mononitrate [Imdur] 30 mg PO DAILY 07/18/18 07/18/18 History Levofloxacin [Levaquin] 500 mg PO Q48H 07/18/18 07/18/18 History Polyvinyl Alcohol [Artificial 1 gtt OP BID 07/18/18 07/18/18 History Tears] Umeclidinium Vilantarol 1 puff INH DAILY 07/18/18 07/18/18 History predniSONE [Prednisone] 20 mg PO DAILY 07/18/18 07/18/18 History predniSONE [Prednisone] 30 mg PO DAILY 07/18/18 07/18/18 History predniSONE [Prednisone] 35 mg PO DAILY 07/18/18 07/18/18 History predniSONE [Prednisone] 40 mg PO DAILY 07/18/18 07/18/18 History Allergies Allergy/AdvReac Type Severity Reaction Status Date / Time Sulfa (Sulfonamide Allergy Mild Rash Verified 07/11/15 05:10 Antibiotics) Exam - Vital Signs Vital signs: Temp Pulse Resp BP Pulse Ox 97.7 F 99 H 20 147/86 97 07/21/18 08:00 07/21/18 11:23 07/21/18 11:23 07/21/18 08:00 07/21/18 04:00 - General Appearance General appearance: chronically ill, fatigue EENT: mucous membranes dry Neck: supple Respiratory: wheezing Cardiology: no edema Gastrointestinal: no tenderness Integumentary: warm and dry Neurologic: no focal deficit, alert and oriented x3 Musculoskeletal: no deformities Psychiatric: mood/affect appropriate, cooperative Results - Lab Results 07/21/18 04:00 07/21/18 04:00 Most recent lab results Calcium 8.1 mg/dl (8.6-10.4) L 07/21/18 04:00 Phosphorus 5.8 mg/dL (2.7-4.5) H 07/21/18 04:00 Magnesium 1.9 mg/dL (1.6-2.5) 07/21/18 04:00 Assessment and Plan (1) ESRD (end stage renal disease) on dialysis Cherelle Covert is a 62-year-old female with end-stage renal disease on chronic hemodialysis (through left internal jugular tunneled hemodialysis catheter, at [place], on MWF, followed by Dr. Tafoya), right arm AV fistula (not being used) , secondary hyperparathyroidism of renal origin, chronic anemia due to kidney disease, admitted on 07/18/18. Dr. Rodriguez could not reach Dr. Tafoya, his primary senior benefits analyst. Dr. Tafoya is likely out of town. Dr. Rodriguez requested nephrology consultation from [place] for hemodialysis need. Plan: Hemodialysis today with Revaclear 400 dialyzer for 3 hours, QB/QD 400/ 800, dialysate (Potassium 3, Bicarbonate 33, Calcium 2.5, Sodium 140), UF target 2500 ml, Heparin 2000 unit bolus, 1200 unit per hour. The patient seen and evaluated during hemodialysis at 14:15. Status: Chronic Priority: Medium
--- NOTE | 2018-07-21 14:51 | Internal Med Progress Note ---
Medical - PN: Subj Patient information: Note initiated : 07/21/18 at 2:44 pm Service Date, if different from initiated Date: [] Patient: Cherelle Mcpherson 62 y/o F admitted on 07/18/18 for Fluid Overload. Chief Complaint: [] Interval history: Ms. Mcpherson is a 62 year old F with h/o ESRD on HD, recently discharged from [facility] for Sepsis, Respiratory failure and pneumonia to SNF, the patient notes that at the time of discharge she was not feeling quite at baseline. The patient was admitted to the hospital with the diagnosis of chf exacerbation , copd exacerbation, sepsis and pneumonia, treated with broad spectrum antibiotics, vanco,zosyn levaquin and discharged eventually on levaquin and steroid taper The patient was supposed to get HD today as outpatient The patient has h/o ESBL ecoli pna this year? The patient notes that she was feeling short of breath, since the time of discharge, coughing but no sputum production, and tired. The patient notes that her shortness of breath has progressively been getting worse since the time of discharge. This morning she was very short of breath and she refused to go for dialysis and was sent to the emergency room for further evaluation. She was noted hypoxic with oxygen saturation around 80% as per the ED provider at [facility]. The patient had a chest x-ray done at [facility] which showed CHF as per the ED provider. The official report however chest x-ray does not mention congestive heart failure. The patient had lab work done which shows a WBC count of 10.3 hemoglobin 13 platelets 286, potassium 5.4 bicarbonate 23 BUN 48 creatinine 5.5 calcium 8.5 glucose 166. Venous blood gas shows a pH of 7.37 PCO2 46 PO2 46. BNP elevated at 15,156 was around 5000 a week ago. [facility] does not have dialysis at their center and the glass cylinder flanger recommended the patient be transferred to [facility] for further management as we do have dialysis facilities available. 07/19 Patient seen and examined, no acute overnight events. The patient's oxygen needs still running between 3-4 L. She had dialysis yesterday. Labs this morning are stable. She still notes that she is significantly short of breath but better compared to yesterday. During my evaluation today she was sitting in the chair comfortable and was tolerating some crossword puzzles. I reviewed the CT findings with her as well as the possibility of there being a malignant mass on the chest CT. She notes she was unaware of this finding in the past. Reviewed with her the need for biopsy, which she agrees to. We do not have pulmonary service available at this time. 07/20 Pt seen examined, feels much better, no acute overnight issues Pt sleeping comfortably today xfer to med surg She noted that she would not like to have a biopsy at this time. Advised to consider talking with family and her primary provider. 07/21 Pt seen examined, doing well, no acute complaints or concerns, breathing better labs stable Patient is to have her regular scheduled HD today, I tried to contact Dr Tafoya on his phone but was unable to reach him. I was informed that Dr Tafoya (the patients glass cylinder flanger) has left the country for vacation, there is no back up / covering glass cylinder flanger available to help with regular scheduled dialysis. Given that patient would need her regular dialysis, I called Dr Wooten to help out with dailysis today. He agreed gracefully to help out in this situation. I have informed hospital management about this incidence. The patient again refused to consider a lung biopsy, fully understands the consequences of her decision, includes due to untreated malignancy. Pertinent ROS: Denies headache, dizziness Denies chest pain, palpitations much improved cough or shortness of breath Denies abdominal pain, nausea or vomiting. - Constitutional Vitals: Vital Signs Temp Pulse Resp BP Pulse Ox 96.8 F L 104 H 97 H 92/54 92 07/21/18 13:50 07/21/18 14:33 07/21/18 12:00 07/21/18 14:33 07/21/18 12:00 Period Temp Pulse Resp BP Sys/Talley Pulse Ox Last 24 Hr 96.8 F-98.7 F 10-108 18-97 74-168/24-92 90-97 Intake and Output 07/21/18 07/21/18 07/21/18 05:59 13:59 21:59 Intake Total 250 / 250 Balance 250 / 250 Intake & Output: Intake & Output 07/21/18 07/21/18 07/21/18 05:59 13:59 21:59 Intake Total 250 / 250 Balance 250 / 250 Intake: Oral 250 / 250 Exam: Constitutional; Afebrile, cooperative, alert, not in distress. Eyes- No icterus, , No periorbital swelling Ears- Ext ear normal, hearing normal to conversation. Neck- Midline trachea, supple Respiratory system: Air Entry equal on both sides, poor air entry, mild bibasilar crackles, no wheeze, pt speaking full sentences. CVS- Rate rhythm regular, S1,S2 heard, no gallop, no rub. Abdomen- Soft nontender abdomen, no organomegaly, no tenderness, no guarding or rigidity, DINNER [employer]OOK- AOOx3, moving all extremities, no gross focal deficit noted. Medical - PN: Obj Da - Labs CBC & Chem 7: 07/21/18 04:00 07/21/18 04:00 Labs: Abnormal Lab Results 07/21/18 07/21/18 07/20/18 04:00 04:00 04:15 WBC 12.9 H RBC 3.99 L Hgb 11.9 L RDW 18.2 H Gran % 86.9 H Lymph % (Auto) 8.8 L Gran # 11.2 H Lymph # (Auto) 1.1 L Sodium Chloride 89 L 90 L Anion Gap 24.0 H 21.0 H BUN 90 H 63 H Creatinine 7.9 H* 6.0 H* Glucose 250 H 191 H Uric Acid 9.7 H Calcium 8.1 L Phosphorus 5.8 H 4.6 H GGT 48 H 48 H Alkaline Phosphatase 134 H 132 H Total Protein 5.7 L 5.7 L Triglycerides 210 H 225 H 07/20/18 07/19/18 07/19/18 04:15 04:26 04:26 WBC 11.4 H RBC Hgb RDW 18.5 H 18.2 H Gran % 80.7 H 86.6 H Lymph % (Auto) 12.2 L 7.6 L Gran # 9.2 H 8.9 H Lymph # (Auto) 1.4 L 0.8 L Sodium 132 L Chloride 91 L Anion Gap 18.0 H BUN 30 H Creatinine 3.7 H Glucose 294 H Uric Acid Calcium Phosphorus 4.8 H GGT 62 H Alkaline Phosphatase 148 H Total Protein Triglycerides 163 H Meds: Medications Acetaminophen (Tylenol) 650 mg PO Q6HP PRN PRN Reason: PAIN/FEVER > 101 Last Admin: 07/20/18 16:58 Dose: 650 mg Hydrocodone Bitart/Acetaminophen ([place] 5/325mg) 1 tab PO Q4HP PRN PRN Reason: Pain Level > 5 Last Admin: 07/20/18 18:33 Dose: 1 tab Albuterol/Ipratropium (Duoneb) 3 ml NEB Q4HRT [facility] Last Admin: 07/21/18 14:42 Dose: Not Given Artificial Tears (Artificial Tears Ophth Drops) 1 gtt OU BID [facility] Last Admin: 07/21/18 11:49 Dose: Not Given Aspirin (Aspirin) 81 mg PO DAILY [facility] Last Admin: 07/21/18 09:11 Dose: 81 mg Citalopram Hydrobromide (Celexa) 40 mg PO DAILY [facility] Last Admin: 07/21/18 09:10 Dose: 40 mg Clopidogrel Bisulfate (Plavix) 75 mg PO DAILY [facility] Last Admin: 07/21/18 09:11 Dose: 75 mg Dextrose (Dextrose 50%) 0 ml IV UD PRN PRN Reason: Hypoglycemia Diagnostic Test (Pha) (Accu-Chek) 1 each FS ACHS [facility] Last Admin: 07/21/18 12:41 Dose: 1 each Docusate Sodium (Colace) 100 mg PO BID [facility] Last Admin: 07/21/18 09:11 Dose: 100 mg Furosemide (Lasix) 80 mg PO DAILY [facility] Last Admin: 07/21/18 09:11 Dose: 80 mg Gabapentin (Neurontin) 300 mg PO DAILY [facility] Last Admin: 07/21/18 09:11 Dose: 300 mg Glucose (Insta-Glucose) 15 gm PO PRN PRN PRN Reason: Hypoglycemia Heparin Sodium (Porcine) (Heparin) 5,000 unit SQ Q12 [facility] Last Admin: 07/21/18 09:12 Dose: 5,000 unit Meropenem 0.5 gm/ Sodium (Chloride) 50 mls @ 50 mls/hr IV Q24H [facility] Insulin Glargine (Lantus) 12 unit SQ DAILY [facility] Last Admin: 07/21/18 09:11 Dose: 12 unit Insulin Human Lispro (Humalog) 0 unit SQ ACHS [facility]; Protocol Last Admin: 07/21/18 12:41 Dose: 2 unit Isosorbide Mononitrate (Imdur) 30 mg PO DAILY [facility] Last Admin: 07/21/18 09:10 Dose: 30 mg Naloxone HCl (Narcan) 0.1 mg IV Q2MIN PRN PRN Reason: Opiate Reversal Ondansetron HCl (Zofran) 4 mg IV Q4HP PRN PRN Reason: Nausea And Vomiting Prednisone (Prednisone) 40 mg PO [facility] Last Admin: 07/21/18 09:10 Dose: 40 mg Quetiapine Fumarate (Seroquel) 100 mg PO DAILY [facility] Last Admin: 07/21/18 09:10 Dose: 100 mg Sodium Chloride (Saline Flush) 10 ml IV Q8 [facility] Last Admin: 07/20/18 21:14 Dose: 10 ml Vancomycin HCl (Vancomycin Per Pharmacy) 1 order IV UD [facility] Medical - PN: A/P - Time Spent With Patient Total time spent is greater than 50% in coordination of care (as documented) at patient's floor/unit and/or counseling patient: - Narrative A/P Narrative: A/P Acute on chronic Hypoxic Respiratory failure-Due to CHF and COPD exacerbation, with PNA, on 3L oxygen at present,back to baseline. Pneumonia/ HCAP- was treated with IV vanco /zosyn/levoflox at [facility], however discharged on oral levofloxacin. I noted that in notes there is mention of ESBL pna in the past. Will treat patient with IV vancomycin and IV meropenum for now, d4 on 07/21, will give last dose of ABX tomorrow to complete a 5 day course. Sputum cultures (induced sputum), Blood culture ordered. await results, neg growth so far. Lung Mass- Noted on CT , patient has declined a biospy, aware that this could mean that she will not live if this is cancer. I have advised her to talk with her primary provider CHF- Chest x ray neg for CHF, s/p HD ESRD on HD- Dr Tafoya has been consulted however after the fist HD session, Dr Tafoya left the country for vacation, no covering nehprologist in place. Dr Wooten glass cylinder flanger with other practice had to provide needed emergency services. Hyperkalemia- resolved. Acute COPD exacerbation- improving, back to baseline oxygen needs air entry better, no wheeze noted. DM- SSI insulin for glucose control, start on lantus to help with better glucose control. CAD/HTN/HLD/TIA/CVA - stable, resumed home medications Depression/PTSD/Anxiety- Stable resumed home meds Seizure disorder- Stable DVT hep sq Renal Diabetic Cardiac diet DNR code status. Anticipate D/C SNF tomorrow. Medical - PN: Qual - VTE Deep Vein Thrombosis/Pulmonary Embolism Present on Admission: No
[2018-07-21] MEDS: 0.9 % SODIUM CHLORIDE 10 ML SYRINGE IV SCH ×3 (17:18→22:34)
[2018-07-21] MEDS: MEROPENEM 0.5 GM in 0.9 % SODIUM CHLORIDE 50 ML IV SCH (17:19)
[2018-07-21 18:25] LABS: Vancomycin,Random 9.9 ug/mL
[2018-07-22] MEDS: IPRATROPIUM/ALBUTEROL 3 ML AMPUL.NEB NEB SCH ×3 (04:05→11:08)
[2018-07-22 05:38] LABS: Basophils # (Auto) 0 K/mcL (0.0-0.3); Basophils % (Auto) 0 % (0.0-2.0); Eosinophils # (Auto) 0 K/mcL (0.0-0.7); Eosinophils % (Auto) 0.4 % (0.0-7.0); Granulocytes % (Auto) 82.7 % (38.0-78.0); Lymphocytes % (Auto) 9.5 % (15.5-49.0); Mean Cell Volume 92.3 fL (80.0-100.0); Mean Corpuscular HGB Conc 32.1 g/dL (31.0-36.0); Monocytes # (Auto) 0.8 K/mcL (0.1-0.9); Monocytes % (Auto) 7.4 % (1.0-12.0); Platelet Count 306 K/mcL (140-440); RBC 4.12 M/mcL (4.00-5.20); Red Cell Distribution Width 18.3 % (11.5-14.5)
[2018-07-22 06:56] LABS: ALT/SGPT 9 U/l (0-40); Albumin 3.5 gm/dL (3.2-5.2); Albumin/Globulin Ratio 1.5 (1.0-2.3); Alkaline Phosphatase 133 U/L (39-117); Bilirubin,Direct < 0.2 mg/dL (0.0-0.3); Blood Urea Nitrogen 64 mg/dl (8-23); Gamma Glutamyl Transpeptidase 45 U/L (5-36); Uric Acid 6.4 mg/dL (2.5-8.0)
[2018-07-22] MEDS: INSULIN LISPRO 1 UNIT/0.01 ML UNIT SQ SCH ×2 (07:30→11:43)
[2018-07-22] MEDS: 0.9 % SODIUM CHLORIDE 10 ML SYRINGE IV SCH (07:31)
[2018-07-22] MEDS ORDERED: cloNIDine HCL 0.1 MG TABLET PO PRN (08:06)
[2018-07-22] MEDS: predniSONE 20 MG TABLET PO SCH (09:11)
[2018-07-22] MEDS: DOCUSATE SODIUM 100 MG CAPSULE PO SCH (09:11)
[2018-07-22] MEDS: CLOPIDOGREL 75 MG TABLET PO SCH (09:11)
[2018-07-22] MEDS: HYDROcodone/APAP 5/325MG TABLET PO PRN (09:12)
[2018-07-22] MEDS: CITALOPRAM 20 MG TABLET PO SCH (09:12)
[2018-07-22] MEDS: ISOSORBIDE MONONITRATE 30 MG TAB.XL.24H PO SCH (09:12)
[2018-07-22] MEDS: FUROSEMIDE 80 MG TABLET PO SCH (09:12)
[2018-07-22] MEDS: GABAPENTIN 300 MG CAPSULE PO SCH (09:12)
[2018-07-22] MEDS: ASPIRIN 81 MG TAB.CHEW PO SCH (09:12)
[2018-07-22] MEDS: MEROPENEM 0.5 GM in 0.9 % SODIUM CHLORIDE 50 ML IV SCH (09:13)
[2018-07-22] MEDS: HEPARIN 5,000 UNIT/ML VIAL SQ SCH (09:13)
[2018-07-22] MEDS: INSULIN GLARGINE, HUMAN 1 UNIT/0.01 ML SQ SCH (09:13)
[2018-07-22] MEDS: QUEtiapine 100 MG TABLET PO SCH (09:13)
[2018-07-22] MEDS: POLYVINYL ALCOHOL OPHTH DROPS 15ML BOTTLE OU SCH (09:14)
--- NOTE | 2018-07-22 10:42 | Discharge Summary ---
Medical - DS: Prov Patient information: Note initiated : 07/22/18 at 10:18 am Service Date, if different from initiated Date: [] Patient: Covert,Cherelle gonzalez 62 y/o F admitted on 07/18/18 for Fluid Overload. Chief Complaint: [] Date of admission: 07/18/18 14:21 Discharge date: 07/22/18 Primary care physician: Raphael Roy Consults: 07/21/18 12:07 Consult to Physician [CONS] Routine Comment: ESRD Consulting Provider: Christian Wooten Reason For Exam: Physician to Consult Discharging clinician: Tomi Rodriguez Medical - DS: Meds - Discharge Medications Prescriptions: Ipratropium/Albuterol [Duoneb] 3 ml NEB Q6HRT #120 ampul.neb predniSONE [Pred[facility]one] [facility] [place] [facility] tab Active and Home Medications: Home Medications Ascorbic Acid [Vitamin C] 250 mg PO BID 07/11/15 [History Confirmed 07/18/18 Last Taken 1 Day Ago ~07/10/15] Citalopram Hydrobromide [Celexa] 40 mg PO DAILY 07/11/15 [History Confirmed Last Taken 07/18/18 07:30] Docusate Sodium [Stool Softener] 100 mg PO BID 07/11/15 [History Confirmed 07/18 Last Taken 1 Day Ago ~07/10/15] Furosemide [Lasix] 80 mg PO DAILY 07/11/15 [History Confirmed 07/18/18 Last Taken 07/18/18 07:30] Gabapentin [Neurontin] 300 mg PO DAILY 07/11/15 [History Confirmed 07/18/18 Last Taken 07/18/18 07:30] QUEtiapine FUMARATE [Seroquel] 100 mg PO DAILY 07/11/15 [History Confirmed 07/18 Last Taken 07/18/18 07:30] Vit B Cmplx 3/FA/Vit C/Biotin [[place]-[facility] Rx Tablet] 1 each PO DAILY 07/11/15 [ History Confirmed 07/18/18 Last Taken 07/18/18 07:30] Albuterol Sulfate [Ventolin] 2.5 mg NEB Q2HP PRN 07/18/18 [History Confirmed Last Taken Unknown] Ascorbic Acid [Vitamin C] 250 mg PO BID 07/18/18 [History Confirmed 07/18/18 Last Taken 07/18/18 07:30] Aspirin [Aspirin EC] 81 mg PO DAILY 07/18/18 [History Confirmed 07/18/18 Last Taken 07/18/18 07:30] Clopidogrel Bisulfate [Plavix] 75 mg PO DAILY 07/18/18 [History Confirmed Last Taken 07/18/18 07:30] Insulin Glargine, Human [Lantus] 12 unit SQ DAILY 07/18/18 [History Confirmed Last Taken 07/18/18 07:00] Isosorbide Mononitrate [Imdur] 30 mg PO DAILY 07/18/18 [History Confirmed Last Taken 07/18/18 07:30] Levofloxacin [Levaquin] 500 mg PO Q48H 07/18/18 [History Confirmed 07/18/18 Last Taken 07/17/18 19:00] Polyvinyl Alcohol [Artificial Tears] 1 gtt OP BID 07/18/18 [History Confirmed Last Taken 07/18/18 07:30] Umeclidinium Vilantarol 1 puff INH DAILY 07/18/18 [History Confirmed 07/18/18 Last Taken 07/18/18 07:30] predniSONE [Prednisone] 20 mg PO DAILY 07/18/18 [History Confirmed 07/18/18 Last Taken 07/18/18 07:30] predniSONE [Prednisone] 30 mg PO DAILY 07/18/18 [History Confirmed 07/18/18 Last Taken Unknown] predniSONE [Prednisone] 35 mg PO DAILY 07/18/18 [History Confirmed 07/18/18 Last Taken Unknown] predniSONE [Prednisone] 40 mg PO DAILY 07/18/18 [History Confirmed 07/18/18 Last Taken 07/18/18 07:30] Medical - DS: Hosp Hospital course: Ms. Mcpherson is a 62 year old F with h/o ESRD on HD, recently discharged from [facility] for Sepsis, Respiratory failure and pneumonia to SNF, the patient notes that at the time of discharge she was not feeling quite at baseline. The patient was admitted to the hospital with the diagnosis of chf exacerbation , copd exacerbation, sepsis and pneumonia, treated with broad spectrum antibiotics, vanco,zosyn levaquin and discharged eventually on levaquin and steroid taper The patient was supposed to get HD today as outpatient, The patient has h/o ESBL ecoli pna this year? The patient notes that she was feeling short of breath, since the time of discharge, coughing but no sputum production, and tired. The patient notes that her shortness of breath has progressively been getting worse since the time of discharge. This morning she was very short of breath and she refused to go for dialysis and was sent to the emergency room for further evaluation. She was noted hypoxic with oxygen saturation around 80% as per the ED provider at [facility]. The patient had a chest x-ray done at [facility] which showed CHF as per the ED provider. The official report however chest x-ray does not mention congestive heart failure. The patient had lab work done which shows a WBC count of 10.3 hemoglobin 13 platelets 286, potassium 5.4 bicarbonate 23 BUN 48 creatinine 5.5 calcium 8.5 glucose 166. Venous blood gas shows a pH of 7.37 PCO2 46 PO2 46. BNP elevated at 15,156 was around 5000 a week ago. [facility] does not have dialysis at their center and the group tester recommended the patient be transferred to [facility] for further management as we do have dialysis facilities available. 07/19 Patient seen and examined, no acute overnight events. The patient's oxygen needs still running between 3-4 L. She had dialysis yesterday. Labs this morning are stable. She still notes that she is significantly short of breath but better compared to yesterday. During my evaluation today she was sitting in the chair comfortable and was tolerating some crossword puzzles. I reviewed the CT findings with her as well as the possibility of there being a malignant mass on the chest CT. She notes she was unaware of this finding in the past. Reviewed with her the need for biopsy, which she agrees to. We do not have pulmonary service available at this time. 07/20 Pt seen examined, feels much better, no acute overnight issues Pt sleeping comfortably today xfer to med surg She noted that she would not like to have a biopsy at this time. Advised to consider talking with family and her primary provider. 07/21 Pt seen examined, doing well, no acute complaints or concerns, breathing better labs stable Patient is to have her regular scheduled HD today, I tried to contact Dr Tafoya on his phone but was unable to reach him. I was informed that Dr Tafoya (the patients group tester) has left the country for vacation, there is no back up / covering group tester available to help with regular scheduled dialysis. Given that patient would need her regular dialysis, I called Dr Wooten to help out with dailysis today. He agreed gracefully to help out in this situation. I have informed hospital management about this incidence. The patient again refused to consider a lung biopsy, fully understands the consequences of her decision, includes due to untreated malignancy. 07/22 Pt seen examined, no acute issues, s/p 5 days ABX, Respiratory status back to baseline, stable for discharge back to snf In Summary Acute on chronic Hypoxic Respiratory failure-Due to CHF and COPD exacerbation, with PNA, on 3L oxygen at baseline, at the time of discharge pt is back to baseline oxygen needs. Pneumonia/ HCAP- s/p treatment with vancomycin and meropenum x 5 days, microbiology negative. Completed course while inpatient. Lung Mass- Noted on CT , patient has declined a biopsy, aware that this could mean that she will not live if this is cancer. I have advised her to talk with her primary provider CHF- Chest x ray neg for CHF, s/p HD ESRD on HD- Follow up outpatient for HD as per previous schedule. Hyperkalemia- resolved. Acute COPD exacerbation- resolved, pt to be on duonebx q6hrs, and will be discharged on a steroid taper. The rest of the stay in the hospital was uneventful, pt stable for d/c to SNF Discharge diagnosis: COPD / CHF exacerbation. - Time Spent with Patient Total time spent providing and/or coordinating discharge services: Greater than 30 minutes Medical - DS: Exam - Constitutional Vitals: Vital Signs Temp Pulse Pulse Resp BP BP BP 07/22/18 07:41 101 H 16 07/22/18 07:16 100 H 18 07/22/18 07:15 100 H 20 07/22/18 06:32 98.5 F 97 H 14 180/95 07/21/18 23:25 98.1 F 101 H 16 164/90 07/21/18 22:30 95 H 18 07/21/18 19:55 18 07/21/18 19:33 98.2 F 108 H 22 130/77 07/21/18 18:51 18 07/21/18 18:48 95 H 18 07/21/18 17:08 18 100/84 07/21/18 17:07 98.9 F 95 H 114/41 07/21/18 16:48 100 H 97/24 07/21/18 16:33 97 H 100/34 07/21/18 16:18 97 H 107/47 07/21/18 16:03 94 H 78/29 07/21/18 16:00 96.8 F L 97 H 18 100/74 07/21/18 15:49 98 H 91/22 07/21/18 15:35 101 H 80/52 07/21/18 15:19 106 H 94/38 07/21/18 15:04 98 H 96/40 07/21/18 14:57 99 H 80/50 07/21/18 14:33 104 H 92/54 07/21/18 14:23 60 74/26 07/21/18 14:08 101 H 90/24 07/21/18 13:50 96.8 F L 102 H 109/33 07/21/18 12:00 98.7 F 103 H 18 135/81 07/21/18 11:23 99 H 20 Pulse Ox 07/22/18 07:41 93 07/22/18 07:16 96 07/22/18 07:15 07/22/18 06:32 94 07/21/18 23:25 90 07/21/18 22:30 07/21/18 19:55 90 07/21/18 19:33 90 07/21/18 18:51 90 07/21/18 18:48 07/21/18 17:08 92 07/21/18 17:07 07/21/18 16:48 07/21/18 16:33 07/21/18 16:18 07/21/18 16:03 07/21/18 16:00 92 07/21/18 15:49 07/21/18 15:35 07/21/18 15:19 07/21/18 15:04 07/21/18 14:57 07/21/18 14:33 07/21/18 14:23 07/21/18 14:08 07/21/18 13:50 07/21/18 12:00 92 07/21/18 11:23 Intake and Output 07/21/18 07/22/18 07/22/18 21:59 05:59 13:59 Intake Total 50 / 50 50 / 50 50 / 50 Output Total 1600 / 1600 Balance -1550 / -1550 50 / 50 50 / 50 Intake: IV 50 / 50 50 / 50 Merrem 0.5 gm In Sodium 50 / 50 50 / 50 Chloride 0.9% 50 ml @ 50 mls/hr IV Q24H [facility] Rx#:[id number] Oral 50 / 50 Output: Hemodialysis UF 1600 / 1600 Other: Meal Dinner Breakfast Percent of Meal Consumed 100% 100% Feeding Ability Independent Weight 160 lb 8 oz Additional comments: Constitutional; Afebrile, cooperative, alert, not in distress. Eyes- No icterus, , No periorbital swelling Ears- Ext ear normal, hearing normal to conversation. Neck- Midline trachea, supple Respiratory system: Air Entry equal on both sides improved air entry, No crackles or wheezing, no rhonchi. CVS- Rate rhythm regular, S1,S2 heard, no gallop, no rub. Abdomen- Soft nontender abdomen, no organomegaly, no tenderness, no guarding or rigidity, WHEEL SETTER- AOOx3, moving all extremities, no gross focal deficit noted. Medical - DS: Data Labs on day of discharge: Labs from last 24 hours 07/22/18 07/22/18 07/21/18 04:10 04:10 17:00 WBC 10.9 RBC 4.12 Hgb 12.2 Hct 38.0 MCV 92.3 MCH 29.7 MCHC 32.1 RDW 18.3 H Plt Count 306 MPV 7.9 Gran % 82.7 H Lymph % (Auto) 9.5 L [place] % (Auto) 7.4 Eos % (Auto) 0.4 Baso % (Auto) 0 Gran # 9.0 H Lymph # (Auto) 1.0 L [place] # (Auto) 0.8 Eos # (Auto) 0 Baso # (Auto) 0 Sodium 134 Potassium 4.9 Chloride 94 L Carbon Dioxide 21 L Anion Gap 19.0 H BUN 64 H Creatinine 6.5 H* GFR Calculation 6 Glucose 136 H Uric Acid 6.4 Calcium 8.6 Phosphorus 5.2 H Magnesium 1.9 Total Bilirubin 0.2 Direct Bilirubin < 0.2 GGT 45 H AST 7 ALT 9 Alkaline Phosphatase 133 H Lactate Dehydrogenase 207 Total Protein 5.9 Albumin 3.5 Globulin 2.4 Albumin/Globulin Ratio 1.5 Triglycerides 173 H Random Vancomycin 9.9 Vancomycin Dose Not Reportable Vanco Last Dose Time Not Reportable Preliminary micro results at discharge 07/18/18 16:58 Blood Culture - Preliminary Blood 07/18/18 16:14 Blood Culture - Preliminary Blood Medical - DS: A/P - Patient/Caregiver Discharge Instructions Activity: as per physical therapy, increase activity as tolerated Diet: Cardiac, Renal/Consistent Carbs Additional Instructions: Please take prednisone 40mg x 3 days, then 20mg x 3 days, the 10mg x 3 days, then 5mg x 3 days then stop. Take medication with food. Follow up with PCP in 1 week. You have a mass in your Lungs, this could be cancer, please talk with your primary care provider with regards to getting a biospy done, should you chose to change your mind about the biopsy. Follow up with Dr Tafoya for your regular Dialysis sessions. Go to the ER for shortness of breath, fever, chest pain or any other acute concern. - Follow up Plan Disposition: Xfer SNF Prognosis: Fair Rehab Potential: Fair I certify that the patient requires SNF services: Yes Overall status at discharge: patient is progressing back to baseline Medical - DS: Qual - VTE Deep Vein Thrombosis/Pulmonary Embolism Present on Admission: No
[2018-07-22] MEDS ORDERED: VANCOMYCIN 500 MG in 0.9 % SODIUM CHLORIDE 100 ML IV ONE (11:00)
== END 2018-07-22 12:35 | DRG 190 ==
LOC: ICU 14:21 → MEDSUR 15:18
PROVIDERS: ADMIT Internal Medicine; ATTEND Internal Medicine
CPT/HCPCS: 84145; 90935; 97161; 97167; 99223; 99231; 90732; J1644; J1815; J1817; J2405; J2930; J3370; J7050; J7620; J7620-GY; Q9967

== ENCOUNTER 2018-09-20 15:17 | Inpatient (IN) ==
--- NOTE | 2018-09-20 15:52 | XRay Report ---
HISTORY: Shortness of breath, hypoxia, cough and renal dialysis patient FINDINGS: There is severe diffuse interstitial lung disease bilaterally. This is due to a combination of emphysema and an active inflammatory process. The mass seen in the lingula, contiguous with the major fissure on the CT scan dated 07/18/18 is not present today. This may have been a focal area of atelectasis or inflammation, which has resolved. The heart size is within upper limits of normal. There is no pleural effusion. Dual lumen catheter is well-positioned in the superior vena cava. There is no pneumothorax or widening of the mediastinum. IMPRESSION: COPD with widespread diffuse interstitial inflammation Interpreted and Authenticated by: Pipo Chavira 09/20/18
[2018-09-20 15:59] LABS: Basophils # (Auto) 0 K/mcL (0.0-0.3); Basophils % (Auto) 0.3 % (0.0-2.0); Eosinophils # (Auto) 0.1 K/mcL (0.0-0.7); Eosinophils % (Auto) 0.9 % (0.0-7.0); Granulocytes % (Auto) 80.6 % (38.0-78.0); Lymphocytes # (Auto) 1.9 K/mcL (1.5-4.8); Lymphocytes % (Auto) 11.7 % (15.5-49.0); Mean Cell Volume 87.8 fL (80.0-100.0); Mean Corpuscular HGB Conc 30.4 g/dL (31.0-36.0); Monocytes % (Auto) 6.5 % (1.0-12.0); Platelet Count 687 K/mcL (140-440); RBC 3.16 M/mcL (4.00-5.20); Red Cell Distribution Width 19.1 % (11.5-14.5)
[2018-09-20] MEDS ORDERED: PIPERACILLIN SODIUM/TAZOBACTAM 2.25 GM in DEXTROSE 5% IN WATER 50 ML IV SCH (16:00)
--- NOTE | 2018-09-20 16:03 | Emergency Department Note ---
General Adult HPI - General Chief complaint: Altered Mental Status Stated complaint: altered LOC Time Seen by Provider: 09/20/18 15:24 Source: patient, EMS, old records reviewed Mode of arrival: wheelchair Limitations: altered mental status - History of Present Illness HPI Narrative: 62-year-old female on dialysis with known COPD comes in for wet moist cough having been ill for the last week now requiring oxygen. Oxygen saturations on room air as low 65% at the nursing facility she lives at, [place]. Now requiring nonrebreather mask 6 L. She continues to smoke. She is somnolent but arousable and will give me some history although this is limited by her increased work of breathing, difficult to get review of systems but this is attempted. Denies chest pain Patient is DNR with limited additional interventions She had dialysis at the outpatient center in [place] today - Related Data Home Medications Medication Instructions Recorded Confirmed Citalopram Hydrobromide [Celexa] 20 mg PO DAILY 07/11/15 09/20/18 Furosemide [Lasix] 80 mg PO DAILY 07/11/15 09/20/18 Gabapentin [Neurontin] 300 mg PO DAILY 07/11/15 09/20/18 QUEtiapine FUMARATE [Seroquel] 100 mg PO DAILY 07/11/15 09/20/18 Vit B Cmplx 3/FA/Vit C/Biotin 1 each PO DAILY 07/11/15 09/20/18 [Mal[facility]-Suzan Rx Tablet] Ascorbic Acid [Vitamin C] 250 mg PO BID 07/18/18 09/20/18 Aspirin [Aspirin EC] 81 mg PO DAILY 07/18/18 09/20/18 Clopidogrel Bisulfate [Plavix] 75 mg PO DAILY 07/18/18 09/20/18 Isosorbide Mononitrate [Imdur] 30 mg PO DAILY 07/18/18 09/20/18 Polyvinyl Alcohol [Artificial 1 gtt OP BID 07/18/18 09/20/18 Tears] Umeclidinium Vilantarol 1 puff INH DAILY 07/18/18 09/20/18 Alendronate Sodium [Fosamax] 70 mg PO WEEKLY 09/20/18 09/20/18 Calcium Carbonate [Tums] 1,000 mg CHEWED DAILY 09/20/18 09/20/18 Folic Acid/Vit Bcomp,C [Super 400 mcg PO DAILY 09/20/18 09/20/18 B-Complex Folic-Vit C Tb] Insulin Detemir [Levemir] 12 unit SQ DAILY 09/20/18 09/20/18 Vitamin D3 5,000 unit PO DAILY 09/20/18 09/20/18 amLODIPine [Norvasc] 10 mg PO HS 09/20/18 09/20/18 cloNIDine [Catapres-Tts 2] 1 patch TOPICAL WEEKLY 09/20/18 09/20/18 Allergies Allergy/AdvReac Type Severity Reaction Status Date / Time Sulfa (Sulfonamide Allergy Mild Rash Verified 09/20/18 15:23 Antibiotics) Review of Systems All systems ED: reviewed and negative except as stated. Past Medical History - Past Medical History [facility] Narrative: Medical History Chest pain (Acute) Congestive heart failure (Acute) Shortness of Breath (Acute) Acute hypercapnic respiratory failure (Acute) ESRD (end stage renal disease) on dialysis (Chronic) Fluid overload (Acute) Anemia of chronic disease (Chronic) HTN (hypertension) (Chronic) Source: old records reviewed Medical history: Reports: arthritis, chronic narcotics, COPD, coronary artery disease, DM, GI bleed, hypertension, osteoporosis, renal disease (On dialysis) Psychiatric history: Reports: depression, PTSD - Social History smoking status: Current every day smoker Alcohol use: Reports: None Drug use: Reports: none Physical Exam Normocephalic atraumatic. Somnolent but arousable. Conjunctive are clear sclerae white and nonicteric. No nasal discharge or congestion but she is wearing nasal cannula oxygen as well as a nonrebreather mask over that. Oropharynx is pink with dry buccal mucosa. Posterior pharynx is clear. Bilateral tympanic membranes are dull but I do not see any cause for left ear pain. Moderate amount of cerumen with normal canals. Neck is supple without lymphadenopathy or thyromegaly. Heart is regular rate and rhythm I could not hear a murmur because of her loud lung sounds. Lungs are with wheezes and crackles. She is struggling to breathe. Abdomen is soft nontender nondistende d. No peritoneal signs or guarding. Rectal exam shows old hemorrhoid skin tag external normal rectal tone. Hemoccult is negative . no pedal edema. +2 radial pulse. Limitations: altered mental status Course Vital Signs Temperature 98.7 F 09/20/18 15:18 Pulse Rate 87 09/20/18 15:18 Respiratory Rate 22 09/20/18 15:18 Blood Pressure 127/70 09/20/18 15:18 Pulse Oximetry (%) 78 L 09/20/18 15:18 Temperature 99.0 F 09/20/18 23:46 Pulse Rate 95 H 09/20/18 23:46 Respiratory Rate 19 09/20/18 23:46 Blood Pressure 123/62 09/20/18 23:46 Pulse Oximetry (%) 93 09/20/18 23:46 Medical Decision Making - Lab Data Lab results reviewed: Yes I reviewed the patient's lab results. Result diagrams: 09/20/18 15:30 09/20/18 15:30 Lab Results 09/20/18 09/20/18 09/20/18 Range/Units 15:24 15:24 15:24 WBC (4.5-11.0) K/mcL RBC (4.00-5.20) M/mcL Hgb (12.0-15.0) g/dL Hct (36.0-48.0) % MCV (80.0-100.0) fL MCH (26.0-34.0) pg MCHC (31.0-36.0) g/dL RDW (11.5-14.5) % Plt Count (140-440) K/mcL MPV (7.4-10.4) fL Gran % (38.0-78.0) % Lymph % (Auto) (15.5-49.0) % Harmon % (Auto) (1.0-12.0) % Eos % (Auto) (0.0-7.0) % Baso % (Auto) (0.0-2.0) % Gran # (1.8-8.0) K/mcL Lymph # (Auto) (1.5-4.8) K/mcL Harmon # (Auto) (0.1-0.9) K/mcL Eos # (Auto) (0.0-0.7) K/mcL Baso # (Auto) (0.0-0.3) K/mcL VBG Lactic Acid (0.5-2.0) mmol/L Sodium (133-145) mmol/L Potassium (3.3-5.1) mmol/L Chloride (96-108) mmol/L Carbon Dioxide (22-30) mmol/L Anion Gap (8-16) BUN (8-23) mg/dl Creatinine (0.6-1.1) mg/dl GFR Calculation Glucose (70-105) mg/dL Calcium (8.6-10.4) mg/dl Magnesium 1.8 (1.6-2.5) mg/dL Total Bilirubin (0.0-1.0) mg/dL AST (0-37) U/l ALT (0-40) U/l Alkaline Phosphatase (39-117) U/L Troponin T 0.33 H* (0-0.03) ng/ml Total Protein (5.9-8.4) gm/dL Albumin (3.2-5.2) gm/dL Globulin (2.2-3.7) gm/dL Albumin/Globulin Ratio (1.0-2.3) Lipase 8 (7-60) U/L Procalcitonin 3.27 (<0.10) ng/mL 09/20/18 09/20/18 09/20/18 Range/Units 15:30 15:30 15:30 WBC 15.9 H (4.5-11.0) K/mcL RBC 3.16 L (4.00-5.20) M/mcL Hgb 8.4 L (12.0-15.0) g/dL Hct 27.8 L (36.0-48.0) % MCV 87.8 (80.0-100.0) fL MCH 26.7 (26.0-34.0) pg MCHC 30.4 L (31.0-36.0) g/dL RDW 19.1 H (11.5-14.5) % Plt Count 687 H (140-440) K/mcL MPV 6.4 L (7.4-10.4) fL Gran % 80.6 H (38.0-78.0) % Lymph % (Auto) 11.7 L (15.5-49.0) % Harmon % (Auto) 6.5 (1.0-12.0) % Eos % (Auto) 0.9 (0.0-7.0) % Baso % (Auto) 0.3 (0.0-2.0) % Gran # 12.8 H (1.8-8.0) K/mcL Lymph # (Auto) 1.9 (1.5-4.8) K/mcL Harmon # (Auto) 1.0 H (0.1-0.9) K/mcL Eos # (Auto) 0.1 (0.0-0.7) K/mcL Baso # (Auto) 0 (0.0-0.3) K/mcL VBG Lactic Acid 1.1 (0.5-2.0) mmol/L Sodium 138 (133-145) mmol/L Potassium 2.4 L* (3.3-5.1) mmol/L Chloride 93 L (96-108) mmol/L Carbon Dioxide 32 H (22-30) mmol/L Anion Gap 13.0 (8-16) BUN 7 L (8-23) mg/dl Creatinine 2.2 H (0.6-1.1) mg/dl GFR Calculation 23 Glucose 149 H (70-105) mg/dL Calcium 8.5 L (8.6-10.4) mg/dl Magnesium (1.6-2.5) mg/dL Total Bilirubin 0.3 (0.0-1.0) mg/dL AST 77 H (0-37) U/l ALT 34 (0-40) U/l Alkaline Phosphatase 172 H (39-117) U/L Troponin T (0-0.03) ng/ml Total Protein 6.5 (5.9-8.4) gm/dL Albumin 3.1 L (3.2-5.2) gm/dL Globulin 3.4 (2.2-3.7) gm/dL Albumin/Globulin Ratio 0.9 L (1.0-2.3) Lipase (7-60) U/L Procalcitonin (<0.10) ng/mL Arterial blood gas shows normal pH but decreased oxygen level despite being on 6 L nonrebreather mask - Radiology Data Radiology results reviewed: Yes I reviewed the patient's radiology results. Chest x-ray shows chronic lung disease. CT scan ordered without contrast due to her being on dialysis CT scan of the lungs without contrast shows resolution of lung mass but multiple other nodules that could be inflammatory versus atypical pneumonia. See full report CT scan of the head is also ordered - EKG Data EKG #1 EKG attestation: Yes I reviewed and interpreted this EKG. EKG results narrative: EKG shows a rate of 100 sinus tachycardia with PACs. Old anterior infarct noticed with Q waves in V1 through V4. T wave flattening in 3 and aVF Disposition Pt seen by [employer] SERVICE CAPTAIN/PA only: No Clinical Impression: Hypokalemia, ESRD (end stage renal disease) on dialysis, Anemia of chronic disease COPD (chronic obstructive pulmonary disease) Qualifiers: COPD type: COPD with acute exacerbation Qualified Code(s): J44.1 - Chronic obstructive pulmonary disease with (acute) exacerbation Pneumonia Qualifiers: Pneumonia type: due to unspecified organism Laterality: unspecified laterality Lung location: unspecified part of lung Qualified Code(s): J18.9 - Pneumonia, unspecified organism Respiratory failure with hypoxia Qualifiers: Chronicity: acute Qualified Code(s): J96.01 - Acute respiratory failure with hypoxia Summary: Patient is placed on oxygen via nonrebreather mask. Labs ordered along with x- ray and subsequent to that CT scan. Sirs versus possible sepsis so blood cultures and then start renal dosed Zosyn for presumed pneumonia with respiratory failure/hypoxia; likely COPD exacerbation as well-noted the patient takes Solu-Medrol at home and is diabetic. Chest x-ray and subsequent CT scan of the chest notes atypical pneumonia versus collagen vascular disease in the lungs. I discussed her case with Dr. Tafoya, her streetcar dispatcher, who agreed to consult on the patient. He advised me not to replace her potassium so I stopped that I then discussed the case with Dr. Baldwin, the hospitalist who agreed to admit the patient for further care and evaluation in the hospital Disposition: Xfer As Inpt ([facility]) Condition: Serious
[2018-09-20] MEDS ORDERED: methylPREDNISolone SOD SUCC 125 MG/2 ML VIAL IV ONE (16:13)
[2018-09-20 16:19] LABS: ALT/SGPT 34 U/l (0-40); Albumin 3.1 gm/dL (3.2-5.2); Albumin/Globulin Ratio 0.9 (1.0-2.3); Alkaline Phosphatase 172 U/L (39-117); Blood Urea Nitrogen 7 mg/dl (8-23)
[2018-09-20] MEDS ORDERED: POTASSIUM CHLORIDE 40 MEQ in DEXTROSE 5% IN WATER 500 ML IV ONE (16:20)
--- NOTE | 2018-09-20 16:49 | Cat Scan Report ---
CLINICAL INFORMATION: Dyspnea, altered level of consciousness and pulmonary nodule seen on a prior chest CT COMPARISON: 07/18/18 TECHNIQUE: 2.5 mm axial slices were obtained from the lung apices through the bases without intravenous contrast. Sagittal, coronal and axial reformatted images were processed and reviewed at bone, lung and soft tissue windows. 7 mm axial MIP images were also reconstructed. The radiation exposure was limited using dose reduction technology. FINDINGS: Moderate emphysema is present throughout both lungs with the greatest involvement in the upper lobes. There are multiple ill-defined nodular infiltrates scattered throughout both lungs. Many of these were present on the prior CT done in June. At that time the largest lesion was contiguous with the major fissure posteriorly in the left upper lobe. It measured 1.9 x 2.4 x 4.2 cm. Today the same nodule measures 1.2 x 1.7 x 3.8 cm. There are several new nodular infiltrates. The most suspicious is located laterally in the central portion of the left upper lobe and it measures 1.6 x 2.7 x 2.8 cm. These areas consolidated lung parenchyma involved all lobes. There is no pleural effusion. Nonspecific lymph nodes are seen in the the lymph nodes are stable. The heart size is borderline enlarged. There are densely calcified plaques in the coronary arteries. IMPRESSION: Widely spread nodular infiltrates throughout both lungs superimposed upon emphysema. The infiltrates are more likely due to an inflammatory process rather than metastasis. This could be an atypical pneumonia if the patient is immunocompromise. Collagen vascular disease is also a consideration. Tissue biopsy may be required for definitive diagnosis. Dr. Villalta was called with results Interpreted and Authenticated by: Pipo Chavira 09/20/18
--- NOTE | 2018-09-20 17:59 | Internal Med History&Physical ---
Medical - H&P: HPI Patient information: Note initiated : 09/20/18 at 5:56 pm Service Date, if different from initiated Date: [] Patient: Cherelle Mcpherson 62 y/o F admitted on for altered LOC. Chief Complaint: [] History of present illness: Ms. Mcpherson is a 62 year old F who resides at a local half-way facility who presents the ED with decreased LOC, productive cough. Patient had dialysis this morning. She had oxygen saturations on room air as well as 65% of the nursing facility, [place]. Required nonrebreather 6 L in the ED. She has had multiple hospitalizations at [facility] as well as several here over the past year for pneumonia and heart failure. History obtained from the daughter and from patient. Sounds like couple days ago the patient had some earache in the left. Other than that no other complaints, although daughters feels that she is never really recovered from recent hospitalizations. In the nursing facility she had oxygen saturations in the high 60s low 70s and even on 6 L nasal cannula she was 85% per the nursing facility. Her daughter believe she is on 4 L of nasal cannula typically. Patient does have a cough which is chronic per the daughter feels like it is more frequent than usual. [place] patient feels much more weak and fatigued. She has increased shortness of breath above baseline. Has a headache but no fevers or chills. No chest pain. In the ED she had CT chest as well as CT head for somnolence. CT head showed old strokes. The CT chest with widespread nodular infiltrates question inflammatory versus metastases. She has had nodular lesions since March. CT chest with consolidations as well. Her lactate was okay but her pro- calcitonin was elevated. She did receive dialysis this morning. She is noted to have hypokalemia but per discussion with the exchange administrator he instructed the ED physician not to treat it at this time. EKG with sinus tach and PACs. No chest pain. Admitted through ED with pneumonia and COPD exacerbation. Her daughter is at bedside, who is her POA. Per her daughter her mentation is at baseline. Review of Systems: Positives as above. Denies fever/chills/nausea/vomiting/chest or abdominal pain/diarrhea. Remaining 10 point review of systems reviewed negative Medical - H&P: PMH Medical history: Medical History Chest pain (Acute) Congestive heart failure (Acute) Shortness of Breath (Acute) Acute hypercapnic respiratory failure (Acute) ESRD (end stage renal disease) on dialysis (Chronic) Fluid overload (Acute) Anemia of chronic disease (Chronic) HTN (hypertension) (Chronic) Surgical history: Includes left fibula fracture repair. cholecystectomy, total abdominal hysterectomy with bilateral salpingo-oophorectomy, tonsillectomy, appendectomy, hemorrhoidectomy, cataracts, esophageal dilation. Family history: Mother had CAD and CHF. Father had TB of a motor vehicle accident 49. Social history: -Patient continues to smoke -Resides at a half-way facility -Multiple hospitalizations over the past couple months and previous year Medical - H&P: Meds Home Medications Medication Instructions Recorded Confirmed Type Citalopram Hydrobromide [Celexa] 20 mg PO DAILY 07/11/15 09/20/18 History Furosemide [Lasix] 80 mg PO DAILY 07/11/15 09/20/18 History Gabapentin [Neurontin] 300 mg PO DAILY 07/11/15 09/20/18 History QUEtiapine FUMARATE [Seroquel] 100 mg PO DAILY 07/11/15 09/20/18 History Vit B Cmplx 3/FA/Vit C/Biotin 1 each PO DAILY 07/11/15 09/20/18 History [Malou-Suzan Rx Tablet] Ascorbic Acid [Vitamin C] 250 mg PO BID 07/18/18 09/20/18 History Aspirin [Aspirin EC] 81 mg PO DAILY 07/18/18 09/20/18 History Clopidogrel Bisulfate [Plavix] 75 mg PO DAILY 07/18/18 09/20/18 History Isosorbide Mononitrate [Imdur] 30 mg PO DAILY 07/18/18 09/20/18 History Polyvinyl Alcohol [Artificial 1 gtt OP BID 07/18/18 09/20/18 History Tears] Umeclidinium Vilantarol 1 puff INH DAILY 07/18/18 09/20/18 History Alendronate Sodium [Fosamax] 70 mg PO WEEKLY 09/20/18 09/20/18 History Calcium Carbonate [Tums] 1,000 mg CHEWED DAILY 09/20/18 09/20/18 History Folic Acid/Vit Bcomp,C [Super 400 mcg PO DAILY 09/20/18 09/20/18 History B-Complex Folic-Vit C Tb] Insulin Detemir [Levemir] 12 unit SQ DAILY 09/20/18 09/20/18 History Vitamin D3 5,000 unit PO DAILY 09/20/18 09/20/18 History amLODIPine [Norvasc] 10 mg PO HS 09/20/18 09/20/18 History cloNIDine [Catapres-Tts 2] 1 patch TOPICAL WEEKLY 09/20/18 09/20/18 History Allergies Allergy/AdvReac Type Severity Reaction Status Date / Time Sulfa (Sulfonamide Allergy Mild Rash Verified 09/20/18 15:23 Antibiotics) Medical - H&P: Exam - Constitutional Vitals: Temp Pulse Resp BP Pulse Ox 98.7 F 86 19 145/79 98 09/20/18 15:18 09/20/18 17:01 09/20/18 17:01 09/20/18 17:01 09/20/18 17:01 Exam: General: Awake, No acute Distress Eyes/N/T: EOMI, PEERL, DMM Head/Neck: neck supple, normocephalic atraumatic CV: Regular with occasional ectopic, No murmurs, Pulm: Left base rales, expiratory wheezing noted laterally Abd: soft, nontender, +BS x4 Ext: no clubbing/cyanosis, 2+ chronic bilateral lower extremity edema Neuro: no focal deficits, moves all extremities, CN 2-12 grossly intact, symmetrical strength b/l upper/lower, sensations intact b/l upper/lower Skin: warm/dry Medical - H&P: Reslt - Labs CBC & Chem 7: 09/20/18 15:30 09/20/18 15:30 Labs: Short CBC 09/20/18 Range/Units 15:30 WBC 15.9 H (4.5-11.0) K/mcL Hgb 8.4 L (12.0-15.0) g/dL Hct 27.8 L (36.0-48.0) % Plt Count 687 H (140-440) K/mcL BMP 09/20/18 15:30 Sodium 138 Potassium 2.4 L* Chloride 93 L Carbon Dioxide 32 H BUN 7 L Creatinine 2.2 H Glucose 149 H Calcium 8.5 L Cardiac Enzymes 09/20/18 Range/Units 15:24 Troponin T 0.33 H* (0-0.03) ng/ml Liver Function 09/20/18 Range/Units 15:30 Total Bilirubin 0.3 (0.0-1.0) mg/dL AST 77 H (0-37) U/l ALT 34 (0-40) U/l Alkaline Phosphatase 172 H (39-117) U/L Albumin 3.1 L (3.2-5.2) gm/dL - Impressions CT brain awaiting report but per ED physician showed old CVA mastoiditis. CT chest with widespread nodular infiltrates throughout both lung superimposed on emphysema. Medical - H&P: A/P - Narrative A/P Narrative: A: *Acute on chronic hypoxic respiratory failure: 08/28 PNA and underlying lung pathology *Pneumonia (multiple hospitalizations recently from June through August 24): History of ESBL organisms, MRSA screen positive *Sepsis: *AECOPD(4-6L NC@SNF): *lung nodules: malignant vs inflammatory; have more or less been present since March 2018 with various changes in sizes - *ESRD: follows with [facility] *Anemia, acute on chronic: rectal exam in ED was guaiac negative -hgb 10.4 on 08/27 *h/o dCHF: *DM: *h/o CVA's *HTN/HLD: *?Sz d/o: *Depression/anxiety: on sertraline and quetiapine *Tobacco: *Recent esophageal obstruction w/food impaction: Was put on a soft diet and was supposed to have a follow-up EGD around this time with Dr. Miller *Hypokalemia: Received dialysis morning, do not treat per Dr. Tafoya discussion with ED *Thrombocytosis: Likely reactive *Mastoiditis: *Goals of care: Poor functional status, multiple hospitalizations, decline. Daughter is POA. P: -Merrem/Azithro, pending BC/SC -Wean O2 as able -corticosteroids (wean)/Nebs -IS/Acapella/RT -sputum cytology -We will try to discuss case with Dr. Dahl regarding the CT chest finding. -Dr. Tafoya for HD - -cont ASA/Plavix - -lantus and SSI -clear liquids, ST eval; f/u with GI outpt for f/u EGD -Clarify home medications -pt/ot -Smoking cessation counseling -ppx: heparin/ppi DNR, No aggressive intervention/procedures, Bipap ok.
[2018-09-20] MEDS ORDERED: AZITHROMYCIN 500 MG in DEXTROSE 5% IN WATER 250 ML IV SCH ×2 (19:00)
[2018-09-20] MEDS ORDERED: ONDANSETRON 4 MG/2 ML VIAL IV PRN (19:35)
[2018-09-20] MEDS ORDERED: DEXTROSE 31 GM ORAL.SUSP PO PRN (19:35)
[2018-09-20] MEDS ORDERED: PROMETHAZINE 25 MG/ML VIAL IV PRN (19:35)
[2018-09-20] MEDS ORDERED: DEXTROSE 50% 50 ML VIAL IV PRN (19:35)
[2018-09-20] MEDS ORDERED: ACETAMINOPHEN 325 MG TABLET PO PRN (19:35)
[2018-09-20] MEDS ORDERED: SENNOSIDES 8.8 MG/5 ML ML PT PRN (19:35)
[2018-09-20] MEDS ORDERED: IPRATROPIUM/ALBUTEROL 3 ML AMPUL.NEB NEB ONE (20:05)
[2018-09-20] MEDS: IPRATROPIUM/ALBUTEROL 3 ML AMPUL.NEB NEB SCH ×2 (20:06→22:59)
[2018-09-20] MEDS: BUDESONIDE 0.5 MG/2 ML AMPUL.NEB NEB SCH (20:06)
[2018-09-20] MEDS: 0.9 % SODIUM CHLORIDE 10 ML SYRINGE IV SCH (20:50)
[2018-09-20] MEDS ORDERED: FAMOTIDINE/PF 20 MG/2 ML VIAL IV SCH (21:00)
[2018-09-20] MEDS ORDERED: amLODIPine 10 MG TABLET PO SCH (21:00)
[2018-09-20 21:05] LABS: C-Reactive Protein 12.6 mg/dl (0.0-0.8)
[2018-09-20] MEDS: methylPREDNISolone SOD SUCC 40 MG/ML VIAL IV SCH (21:42)
[2018-09-20] MEDS: DOCUSATE SODIUM 100 MG CAPSULE PO SCH (21:43)
[2018-09-20] MEDS: HEPARIN 5,000 UNIT/ML VIAL SQ SCH (21:43)
[2018-09-20] MEDS: INSULIN LISPRO 1 UNIT/0.01 ML UNIT SQ SCH (22:17)
[2018-09-21] MEDS: MEROPENEM 1 GM in 0.9 % SODIUM CHLORIDE 50 ML IV SCH ×2 (00:51→06:12)
[2018-09-21] MEDS: IPRATROPIUM/ALBUTEROL 3 ML AMPUL.NEB NEB SCH ×6 (03:16→23:11)
[2018-09-21 05:39] LABS: Mean Cell Volume 89.5 fL (80.0-100.0); Platelet Count 665 K/mcL (140-440); RBC 3.11 M/mcL (4.00-5.20); Red Cell Distribution Width 18.9 % (11.5-14.5)
[2018-09-21 06:13] LABS: ALT/SGPT 34 U/l (0-40); Albumin 3.1 gm/dL (3.2-5.2); Albumin/Globulin Ratio 0.9 (1.0-2.3); Alkaline Phosphatase 163 U/L (39-117); Bilirubin,Direct < 0.2 mg/dL (0.0-0.3); Blood Urea Nitrogen 15 mg/dl (8-23); Gamma Glutamyl Transpeptidase 28 U/L (5-36); Uric Acid 3.4 mg/dL (2.5-8.0)
[2018-09-21] MEDS: 0.9 % SODIUM CHLORIDE 10 ML SYRINGE IV SCH ×7 (06:13→22:30)
[2018-09-21 06:39] LABS: Anisocytosis 1+ (NONE SEEN); Band Neutrophils % 2 % (0-10); Basophils % (Manual) 1 % (0-2); Lymphocytes % 3 % (15-49); Platelet Estimate INCREASED (NORMAL); RBC Morphology ABNORM (NORMAL); Segmented Neutrophils % 94 % (38-78)
[2018-09-21] MEDS: INSULIN LISPRO 1 UNIT/0.01 ML UNIT SQ SCH ×4 (07:14→21:01)
[2018-09-21] MEDS ORDERED: VANCOMYCIN PER PHARMACY IV SCH ×2 (07:22→11:26)
--- NOTE | 2018-09-21 07:26 | Internal Med Progress Note ---
Medical - PN: Subj Patient information: Note initiated : 09/21/18 at 7:18 am Service Date, if different from initiated Date: [] Patient: Cherelle Mcpherson 62 y/o F admitted on 09/20/18 for altered LOC. Chief Complaint: [] Interval history: Ms. Mcpherson is a 62 year old F who resides [facility] who presents the ED with decreased LOC, productive cough. Patient had dialysis this morning. She had oxygen saturations on room air as well as 65% of the nursing facility, [facility]. Required nonrebreather 6 L in the ED. She has had multiple hospitalizations at [facility] as well as several here over the past year for pneumonia and heart failure. History obtained from the daughter and from patient. Sounds like couple days ago the patient had some earache in the left. Other than that no other complaints, although daughters feels that she is never really recovered from recent hospitalizations. In the nursing facility she had oxygen saturations in the high 60s low 70s and even on 6 L nasal cannula she was 85% per the nursing facility. Her daughter believe she is on 4 L of nasal cannula typically. Patient does have a cough which is chronic per the daughter feels like it is more frequent than usual. Roland patient feels much more weak and fatigued. She has increased shortness of breath above baseline. Has a headache but no fevers or chills. No chest pain. In the ED she had CT chest as well as CT head for somnolence. CT head showed old strokes. The CT chest with widespread nodular infiltrates question inflammatory versus metastases. She has had nodular lesions since March. CT chest with consolidations as well. Her lactate was okay but her pro- calcitonin was elevated. She did receive dialysis this morning. She is noted to have hypokalemia but per discussion with the warehouse handler he instructed the ED physician not to treat it at this time. EKG with sinus tach and PACs. No chest pain. Admitted through ED with pneumonia and COPD exacerbation. Her daughter is at bedside, who is her POA. Per her daughter her mentation is at baseline. 09/21 Slept okay last night. Feels tired may be a little better than yesterday. Has a cough but she is unable to produce any sputum. Shortness of breath is better, not quite at baseline. Decreased hearing in left ear, unknown chronicity. Sitting up in the chair, answering questions appropriately. Review of Systems: denies headache/fever/chills/nausea/vomiting/chest or abdominal pain/diarrhea. Otherwise see above. - Constitutional Vitals: Vital Signs Temp Pulse Resp BP Pulse Ox 99.6 F H 95 H 21 126/62 95 09/21/18 05:01 09/21/18 06:01 09/21/18 06:01 09/21/18 06:01 09/21/18 06:01 Period Temp Pulse Resp BP Sys/Talley Pulse Ox Last 24 Hr 98.7 F-99.6 F 79-103 13-36 105-159/52-86 78-100 Intake and Output 09/20/18 09/21/18 09/21/18 21:59 05:59 13:59 Intake Total 343 50 50 Balance 343 50 50 Weight 70.261 kg Intake & Output: Intake & Output 09/20/18 09/21/18 09/21/18 21:59 05:59 13:59 Intake Total 343 50 50 Balance 343 50 50 Weight 70.261 kg Intake: IV 343 50 50 Zithromax 500 mg In Dextrose 5% 250 in Water 250 ml @ 250 mls/hr IV Q24H [facility] Rx#:[id number] Merrem 1 gm In Sodium Chloride 50 50 0.9% 50 ml @ 100 mls/hr IV Q8H [facility] Rx#:[id number] Zosyn 2.25 gm In Dextrose 5% in 50 Water 50 ml @ 100 mls/hr IV ONCE [facility] Rx#:[id number] Potassium Chloride 40 Meq In 43 Dextrose 5% in Water 500 ml @ 130 mls/hr IV ONCE ONE Rx#: [id number] Exam: General: Awake, No acute Distress Eyes/N/T: EOMI, Head/Neck: neck supple, cerumen bilateral ear canals and tympanic membranes appear to be clear although somewhat difficult to visualize given the cerumen CV: Regular with occasional ectopic, 1/6 SM, Pulm: Left base rales, no wheezing today Abd: soft, nontender, +BS x4 Ext: no clubbing/cyanosis, 2+ chronic bilateral lower extremity edema Neuro: left hearing impairment, moves all extremities, answers questions a ppropriately, follows commands Skin: warm/dry Medical - PN: Obj Da - Labs CBC & Chem 7: 09/21/18 03:35 09/21/18 03:34 Labs: Abnormal Lab Results 09/21/18 09/21/18 09/20/18 03:35 03:34 19:51 WBC 18.4 H RBC 3.11 L Hgb 8.6 L Hct 27.8 L MCHC RDW 18.9 H Plt Count 665 H MPV 6.9 L Gran % Lymph % (Auto) Gran # Phelps # (Auto) Seg Neutrophils % 94 H Lymphocytes % 3 L RBC Morphology Abnorm A Polychromasia 1+ A Anisocytosis 1+ A ESR Potassium 2.5 L* Chloride 92 L Carbon Dioxide Anion Gap 20.0 H BUN Creatinine 3.0 H Glucose 256 H Calcium 8.3 L Phosphorus 2.4 L AST 49 H Alkaline Phosphatase 163 H Lactate Dehydrogenase 299 H Troponin T C-Reactive Protein 12.6 H Albumin 3.1 L Albumin/Globulin Ratio 0.9 L 09/20/18 09/20/18 09/20/18 19:51 15:30 15:30 WBC 15.9 H RBC 3.16 L Hgb 8.4 L Hct 27.8 L MCHC 30.4 L RDW 19.1 H Plt Count 687 H MPV 6.4 L Gran % 80.6 H Lymph % (Auto) 11.7 L Gran # 12.8 H Phelps # (Auto) 1.0 H Seg Neutrophils % Lymphocytes % RBC Morphology Polychromasia Anisocytosis ESR 88 H Potassium 2.4 L* Chloride 93 L Carbon Dioxide 32 H Anion Gap BUN 7 L Creatinine 2.2 H Glucose 149 H Calcium 8.5 L Phosphorus AST 77 H Alkaline Phosphatase 172 H Lactate Dehydrogenase Troponin T C-Reactive Protein Albumin 3.1 L Albumin/Globulin Ratio 0.9 L 09/20/18 15:24 WBC RBC Hgb Hct MCHC RDW Plt Count MPV Gran % Lymph % (Auto) Gran # Phelps # (Auto) Seg Neutrophils % Lymphocytes % RBC Morphology Polychromasia Anisocytosis ESR Potassium Chloride Carbon Dioxide Anion Gap BUN Creatinine Glucose Calcium Phosphorus AST Alkaline Phosphatase Lactate Dehydrogenase Troponin T 0.33 H* C-Reactive Protein Albumin Albumin/Globulin Ratio Meds: Medications Acetaminophen (Tylenol) 650 mg PO Q4-6HP PRN PRN Reason: PAIN/FEVER > 101 Last Admin: 09/21/18 07:14 Dose: 650 mg Documented by: Albuterol/Ipratropium (Duoneb) 3 ml NEB Q4HRT [facility] Last Admin: 09/21/18 03:16 Dose: 3 ml Documented by: Amlodipine Besylate (Norvasc) 10 mg PO HS [facility] Last Admin: 09/20/18 21:43 Dose: 10 mg Documented by: Budesonide (Pulmicort) 0.5 mg NEB Q12 [facility] Last Admin: 09/20/18 20:06 Dose: 0.5 mg Documented by: Calcium Carbonate/Glycine (Tums) 1,000 mg CHEWED DAILY [facility] Citalopram Hydrobromide (Celexa) 20 mg PO DAILY [facility] Clonidine HCl (Catapres Tts 2) 1 patch TD Q7D [facility] Clopidogrel Bisulfate (Plavix) 75 mg PO DAILY [facility] Dextrose (Dextrose 50%) 0 ml IV UD PRN PRN Reason: Hypoglycemia Diagnostic Test (Pha) (Accu-Chek) 1 each FS ACHS [facility] Last Admin: 09/21/18 07:13 Dose: 1 each Documented by: Docusate Sodium (Colace) 100 mg PO BID [facility] Last Admin: 09/20/18 21:43 Dose: 100 mg Documented by: Famotidine (Pepcid) 20 mg IV HS [facility] Last Admin: 09/20/18 21:43 Dose: 20 mg Documented by: Furosemide (Lasix) 80 mg PO DAILY [facility] Gabapentin (Neurontin) 300 mg PO DAILY [facility] Glucose (Insta-Glucose) 15 gm PO PRN PRN PRN Reason: Hypoglycemia Heparin Sodium (Porcine) (Heparin) 5,000 unit SQ Q12 [facility] Last Admin: 09/20/18 21:43 Dose: 5,000 unit Documented by: Azithromycin 500 mg/ Dextrose 250 mls @ 250 mls/hr IV Q24H [facility] Stop: 09/22/18 19:59 Last Infusion: 09/20/18 21:49 Dose: Infused Documented by: Meropenem 1 gm/ Sodium (Chloride) 50 mls @ 100 mls/hr IV Q8H [facility] Last Infusion: 09/21/18 06:45 Dose: Infused Documented by: Insulin Glargine (Lantus) 12 unit SQ DAILY [facility] Insulin Human Lispro (Humalog) 0 unit SQ ACHS [facility]; Protocol Last Admin: 09/21/18 07:14 Dose: 8 unit Documented by: Isosorbide Mononitrate (Imdur) 30 mg PO DAILY [facility] Methylprednisolone Sodium Succinate (Solu-Medrol) 40 mg IV Q12 [facility] Last Admin: 09/20/18 21:42 Dose: 40 mg Documented by: Non-Formulary Medication (Umeclidinium Vilantarol) 1 puff INH DAILY [facility] Ondansetron HCl (Zofran) 4 mg IV Q4-6HP PRN PRN Reason: Nausea And Vomiting Promethazine HCl (Phenergan) 12.5 mg IV Q4-6HP PRN PRN Reason: Nausea And Vomiting Quetiapine Fumarate (Seroquel) 100 mg PO DAILY [facility] Senna (Senna) 8.8 mg PT DAILY PRN PRN Reason: Constipation Sodium Chloride (Saline Flush) 10 ml IV Q8 [facility] Last Admin: 09/21/18 07:15 Dose: 10 ml Documented by: Medical - PN: A/P - Time Spent With Patient Total time spent is greater than 50% in coordination of care (as documented) at patient's floor/unit and/or counseling patient: - Narrative A/P Narrative: A: *Acute on chronic hypoxic respiratory failure: 2/2 PNA and underlying lung pathology -down to 4L NC from NRB 10L in ED *Pneumonia (multiple hospitalizations recently from June through August 24): History of ESBL organisms, MRSA screen positive -resp viral panel neg *Sepsis: -leukocytosis component of steroids, no bandemia *AECOPD(4-6L NC@SNF): *lung nodules: malignant vs inflammatory; have more or less been present since March 2018 with various changes in sizes - *ESRD: follows with [facility] *Anemia, acute on chronic: rectal exam in ED was guaiac negative -hgb 10.4 on 08/27, here mid 8's *h/o dCHF: *DM: *h/o CVA's *HTN/HLD: *?Sz d/o: *Depression/anxiety: on sertraline and quetiapine *Tobacco abuse: *Recent esophageal obstruction w/food impaction: Was put on a soft diet and was supposed to have a follow-up EGD around this time with Dr. Miller *Hypokalemia: per Dr. Tafoya *Thrombocytosis: Likely reactive *Sinusitis: *Goals of care: Poor functional status wheelchair bound, multiple hospitalizations, decline. Daughter is POA. P: -vanco/Merrem/Azithro, pending BC/SC -Wean O2 as able to home regimen -corticosteroids (wean)/Nebs -IS/Acapella/RT -sputum cytology -We will try to discuss case with Dr. Dahl regarding the CT chest finding. -Dr. Tafoya for HD - -cont ASA/Plavix -lantus and SSI -clear liquids, ST eval; f/u with GI outpt for f/u EGD -Clarify home medications -pt/ot -Smoking cessation counseling -ppx: heparin/ppi DNR, No aggressive intervention/procedures, Bipap ok. Medical - PN: Qual - VTE Deep Vein Thrombosis/Pulmonary Embolism Present on Admission: No
--- NOTE | 2018-09-21 07:45 | Cat Scan Report ---
History: Decreased level of consciousness TECHNIQUE: The brain was imaged without contrast at 2.5 mm intervals. The radiation exposure was limited using dose reduction technology. FINDINGS: There is an old infarct with encephalomalacia posteriorly and medially in the right parietal lobe in the adjacent upper portion of the occipital lobe. This was not present on the prior head CT done on 06/22/09. No new infarct is detected. Patient does have mild to moderate generalized atrophy which has progressed since 2008. No hemorrhage is present. There are patchy areas of decreased attenuation in the centrum semiovale in the frontal and parietal lobes bilaterally consistent with age-related ischemia or degeneration. There is a large perivascular lacunar space mimicking a lacunar infarct along the inferior border of the left basal ganglia. This was present in 2008. No abnormal extra-axial fluid collection is present. There is a moderate amount calcified plaque in the cavernous portions of both internal carotids and densely calcified plaques are present in the right vertebral artery at the foramen magnum. Moderate mucosal thickening and small amount of fluid is present in the right maxillary sinus. There is a mucous retention cyst in the posterior aspect of the left maxillary sinus. IMPRESSION: Moderate-sized old infarct with encephalomalacia in the right parietal and occipital lobes Cerebral atrophy with age-related ischemia or degeneration above the tentorium Sinusitis Dr. Villalta was called with the results Interpreted and Authenticated by: Pipo Chavira 09/21/18
[2018-09-21] MEDS ORDERED: INSULIN DETEMIR SQ SCH (09:00)
[2018-09-21] MEDS ORDERED: QUEtiapine 100 MG TABLET PO SCH (09:00)
[2018-09-21] MEDS ORDERED: INSULIN GLARGINE, HUMAN 1 UNIT/0.01 ML SQ SCH (09:00)
[2018-09-21] MEDS ORDERED: CLOPIDOGREL 75 MG TABLET PO SCH (09:00)
[2018-09-21] MEDS ORDERED: CITALOPRAM 20 MG TABLET PO SCH (09:00)
[2018-09-21] MEDS ORDERED: VANCOMYCIN 1,000 MG in 0.9 % SODIUM CHLORIDE 250 ML IV ONE (09:00)
[2018-09-21] MEDS ORDERED: UMECLIDINIUM INH SCH (09:00)
[2018-09-21] MEDS ORDERED: CALCIUM CARBONATE 500 MG TAB.CHEW CHEWED SCH (09:00)
[2018-09-21] MEDS ORDERED: FUROSEMIDE 80 MG TABLET PO SCH (09:00)
[2018-09-21] MEDS ORDERED: ISOSORBIDE MONONITRATE 30 MG TAB.XL.24H PO SCH (09:00)
[2018-09-21] MEDS ORDERED: VILANTEROL INH SCH (09:00)
[2018-09-21] MEDS ORDERED: GABAPENTIN 300 MG CAPSULE PO SCH (09:00)
[2018-09-21] MEDS: BUDESONIDE 0.5 MG/2 ML AMPUL.NEB NEB SCH ×2 (09:15→19:39)
[2018-09-21] MEDS: DOCUSATE SODIUM 100 MG CAPSULE PO SCH ×2 (09:23→20:34)
[2018-09-21] MEDS: methylPREDNISolone SOD SUCC 40 MG/ML VIAL IV SCH ×2 (09:25→20:33)
[2018-09-21] MEDS: HEPARIN 5,000 UNIT/ML VIAL SQ SCH ×2 (09:25→20:34)
[2018-09-21] MEDS ORDERED: SENNOSIDES 1 TABLET PO PRN ×2 (09:45→11:26)
[2018-09-21] MEDS ORDERED: POTASSIUM CHLORIDE 20 MEQ in DEXTROSE 5% IN WATER 250 ML IV ONE (09:58)
--- NOTE | 2018-09-21 10:42 | Consultation ---
DATE OF CONSULTATION: 09/21/2018 REFERRING PHYSICIAN: Chaitanya Baldwin MD REASON FOR CONSULTATION: End-stage renal disease. REASON FOR HOSPITALIZATION: The patient is a 62-year-old female with past medical history significant for end-stage renal disease on hemodialysis. She dialyzes Mondays, Wednesdays, Fridays at [facility]. She has had multiple hospitalizations for COPD exacerbation and fluid overload. She was reviewed at group home facility and found to have saturations of 65% and required a nonrebreather with 6 liters for which reason she was transferred over to [facility]. I saw her, she has been complaining about not feeling well and short of breath on and off. She has chronic pulmonary changes which she was supposed to see a music engraver. I am not sure if that has happened or not. When she came into the ED, she had low potassium and also had a CT scan showing sinusitis and pulmonary infiltrates. For this reason, she is hospitalized. PAST MEDICAL HISTORY: 1. End-stage renal disease on hemodialysis. She dialyzes on Mondays, Wednesdays, Fridays. 2. History of chronic chest pain for which she had heart catheterization before. 3. COPD. 4. Chronic congestive heart failure. 5. Anemia of chronic kidney disease. 6. Hypertension. 7. Esophageal stenosis. Recently she had an endoscopy which showed that she was retaining food and pills. SURGICAL HISTORY: Left fibula fracture repair, cholecystectomy, total abdominal hysterectomy with bilateral salpingo-oophorectomy, tonsillectomy, appendectomy, hemorrhoidectomy, cataracts, esophageal dilatation. SOCIAL HISTORY: She smokes still on and off but very small quantity and resides at a group home facility, multiple hospitalizations recently. FAMILY HISTORY: History of coronary artery disease and congestive heart failure. Father had TB and of a motor vehicle accident at age 49. CURRENT MEDICATIONS: 1. Citalopram 20 mg daily. 2. Lasix 80 mg daily. 3. Gabapentin 300 mg daily. 4. Seroquel 100 mg daily. 5. Vitamin B with folic acid 1 tablet daily. 6. Ascorbic acid 250 mg twice daily. 7. Aspirin 81 mg once daily. 8. Plavix 75 mg daily. 9. Imdur 30 mg daily. 10. Alendronate 70 mg once weekly. 11. Calcium carbonate. 12. Vitamin D3 5000 units once daily. 13. Levemir 12 units daily. 14. Amlodipine 10 mg daily. 15. Clonidine patch once weekly. ALLERGIES: SULFA. REVIEW OF SYSTEMS: Ten systems were reviewed and as indicated. She is also complaining of hard of hearing. PHYSICAL EXAMINATION: GENERAL: Alert, oriented x3. She is not in any distress right now. VITAL SIGNS: Blood pressures have been 110 to 130 systolic with a diastolic in the 50s, pulse rates have been in the 90s, temperature 98.3 with a pulse oximetry of 99%. HEENT: NC/AT. Pupils are reactive to light and external canals are normal. Cardiac is normal. NECK: Supple. She does have about 8 to 10 cm of jugular venous distention. No lymphadenopathy. LUNGS: Decreased air entry bilaterally. Rales and rhonchi heard in the right base and rhonchi heard in the left base. CARDIAC: S1, S2 heard. No S3, S4. No murmurs, no rubs. ABDOMEN: Soft, nontender. No organomegaly. Positive bowel sounds. No mass, no rebound. EXTREMITIES: Show 1+ edema. Difficult to palpate dorsalis pedis and posterior tibials. No skin rash or joint swellings noted. NEURO: Grossly intact. LABORATORY DATA: White count is 18.4 with hemoglobin of 8.6 and a platelet count of 669. Sodium 138, potassium 2.5, chloride of 92, CO2 26, BUN 15 with a creatinine of 3.0. Now, her calcium is 8.2 with phosphorus of 2.4. ASSESSMENT AND PLAN: 1. End-stage renal disease on hemodialysis. She is hospitalized with low saturations. Chest x-ray and CT showed multiple infiltrates in both lung tse. We will dialyze her again for a couple hours after the fluid removal. We will try to take about 2 to 3 liters of fluid as she tolerates. 2. Hyperphosphatemia . She is low and I think it will come up. 3. Hypokalemia. We will give her 20 mEq of potassium. 4. Anemia, multifactorial. Continue with the current treatment. SILVIO:nancy Job ID: [id number] Doc ID: [id number] Nathan Baldwin DO
[2018-09-21] MEDS ORDERED: ONDANSETRON 4 MG/2 ML VIAL IV PRN (11:26)
[2018-09-21] MEDS ORDERED: DEXTROSE 31 GM ORAL.SUSP PO PRN (11:26)
[2018-09-21] MEDS ORDERED: DEXTROSE 50% 50 ML VIAL IV PRN (11:26)
[2018-09-21] MEDS ORDERED: PROMETHAZINE 25 MG/ML VIAL IV PRN (11:26)
[2018-09-21 11:36] LABS: Rheumatoid Factor < 10 IU/ml (0-14)
[2018-09-21] MEDS: ACETAMINOPHEN 325 MG TABLET PO PRN ×2 (15:35→21:00)
[2018-09-21] MEDS: FAMOTIDINE/PF 20 MG/2 ML VIAL IV SCH (20:33)
[2018-09-21] MEDS ORDERED: amLODIPine 10 MG TABLET PO SCH (21:00)
[2018-09-22] MEDS: IPRATROPIUM/ALBUTEROL 3 ML AMPUL.NEB NEB SCH ×6 (02:36→22:47)
[2018-09-22] MEDS: 0.9 % SODIUM CHLORIDE 10 ML SYRINGE IV SCH ×3 (05:22→21:19)
[2018-09-22 06:16] LABS: Mean Cell Volume 88.7 fL (80.0-100.0); Platelet Count 622 K/mcL (140-440); Red Cell Distribution Width 19.7 % (11.5-14.5)
[2018-09-22 07:13] LABS: ALT/SGPT 25 U/l (0-40); Albumin 2.9 gm/dL (3.2-5.2); Albumin/Globulin Ratio 0.9 (1.0-2.3); Alkaline Phosphatase 145 U/L (39-117); Bilirubin,Direct < 0.2 mg/dL (0.0-0.3); Blood Urea Nitrogen 27 mg/dl (8-23); C-Reactive Protein 4.9 mg/dl (0.0-0.8); Gamma Glutamyl Transpeptidase 28 U/L (5-36); Uric Acid 5.4 mg/dL (2.5-8.0)
[2018-09-22 07:29] LABS: Anisocytosis 1+ (NONE SEEN); Band Neutrophils % 10 % (0-10); Hypochromasia 1+ (NONE SEEN); Lymphocytes % 1 % (15-49); Metamyelocytes % 2 % (0-0); Monocytes % (Manual) 3 % (1-12); Myelocytes % 2 % (0-0); Platelet Estimate INCREASED (NORMAL); RBC Morphology ABNORM (NORMAL); Segmented Neutrophils % 82 % (38-78)
--- NOTE | 2018-09-22 07:32 | Internal Med Progress Note ---
Medical - PN: Subj Patient information: Note initiated : 09/22/18 at 7:27 am Service Date, if different from initiated Date: [] Patient: Cherelle Mcpherson 62 y/o F admitted on 09/20/18 for altered LOC. Chief Complaint: [] Interval history: Ms. Mcpherson is a 62 year old F who resides at a local [place] [facility] facility who presents the ED with decreased LOC, productive cough. Patient had dialysis this morning. She had oxygen saturations on room air as well as 65% of the nursing facility, [place]. Required nonrebreather 6 L in the ED. She has had multiple hospitalizations at [facility] as well as several here over the past year for pneumonia and heart failure. History obtained from the daughter and from patient. Sounds like couple days ago the patient had some earache in the left. Other than that no other complaints, although daughters feels that she is never really recovered from recent hospitalizations. In the nursing facility she had oxygen saturations in the high 60s low 70s and even on 6 L nasal cannula she was 85% per the nursing facility. Her daughter believe she is on 4 L of nasal cannula typically. Patient does have a cough which is chronic per the daughter feels like it is more frequent than usual. [place] patient feels much more weak and fatigued. She has increased shortness of breath above baseline. Has a headache but no fevers or chills. No chest pain. In the ED she had CT chest as well as CT head for somnolence. CT head showed old strokes. The CT chest with widespread nodular infiltrates question inflammatory versus metastases. She has had nodular lesions since March. CT chest with consolidations as well. Her lactate was okay but her pro- calcitonin was elevated. She did receive dialysis this morning. She is noted to have hypokalemia but per discussion with the tin flopper he instructed the ED physician not to treat it at this time. EKG with sinus tach and PACs. No chest pain. Admitted through ED with pneumonia and COPD exacerbation. Her daughter is at bedside, who is her POA. Per her daughter her mentation is at baseline. 09/21 Slept okay last night. Feels tired may be a little better than yesterday. Has a cough but she is unable to produce any sputum. Shortness of breath is better, not quite at baseline. Decreased hearing in left ear, unknown chronicity. Sitting up in the chair, answering questions appropriately. 09/22 Feels weak and tired. Says she slept okay. Has a productive cough of white sputum. Shortness of breath is near baseline. She is undergoing dialysis and tolerating at this time. Has chronic pain she takes hydrocodone at home with help of finally verified just now that she takes it. Review of Systems: denies headache/fever/chills/nausea/vomiting/chest or abdominal pain/diarrhea. Otherwise see above. - Constitutional Vitals: Vital Signs Temp Pulse Resp BP Pulse Ox 99.6 F H 98 H 20 134/61 98 09/22/18 03:09 09/22/18 03:09 09/22/18 03:09 09/22/18 00:01 09/22/18 03:09 Period Temp Pulse Resp BP Sys/[place]ley Pulse Ox Last 24 Hr 98 F-99.6 F 75-102 16-38 63-135/41-65 88-99 Intake and Output 09/21/18 09/22/18 09/22/18 21:59 05:59 13:59 Intake Total 651 120 Balance 651 120 Weight 71.305 kg Intake & Output: Intake & Output 09/21/18 09/22/18 09/22/18 21:59 05:59 13:59 Intake Total 651 120 Balance 651 120 Weight 71.305 kg Intake: IV 431 Oral 220 120 Other: Meal Dinner Percent of Meal Consumed 75% Feeding Ability Independent Exam: General: Awake, No acute Distress Eyes/N/T: EOMI, Head/Neck: neck supple, CV: Regular, 3/6 SM, Pulm: Clear laterally, no wheezing, mildly diminished Abd: soft, nontender, +BS x4 Ext: no clubbing/cyanosis, 1+ chronic bilateral lower extremity edema improved Neuro: moves all extremities, answers questions appropriately, follows commands Skin: warm/dry Medical - PN: Obj Da - Labs CBC & Chem 7: 09/22/18 04:07 09/22/18 04:07 Labs: Abnormal Lab Results 09/22/18 09/22/18 09/21/18 04:07 04:07 03:35 WBC 17.9 H 18.4 H RBC 2.90 L 3.11 L Hgb 8.0 L 8.6 L Hct 25.7 L 27.8 L MCHC RDW 19.7 H 18.9 H Plt Count 622 H 665 H MPV 6.7 L 6.9 L Gran % Lymph % (Auto) Gran # [place] # (Auto) Seg Neutrophils % 94 H Lymphocytes % 3 L RBC Morphology Abnorm A Polychromasia 1+ A Anisocytosis 1+ A ESR Sodium 131 L Potassium 3.1 L Chloride 92 L Carbon Dioxide Anion Gap BUN 27 H Creatinine 4.0 H Glucose 316 H Calcium 8.3 L Phosphorus 2.2 L AST Alkaline Phosphatase 145 H Lactate Dehydrogenase 320 H Troponin T C-Reactive Protein 4.9 H Albumin 2.9 L Albumin/Globulin Ratio 0.9 L Triglycerides 188 H 09/21/18 09/20/18 09/20/18 03:34 19:51 19:51 WBC RBC Hgb Hct MCHC RDW Plt Count MPV Gran % Lymph % (Auto) Gran # [place] # (Auto) Seg Neutrophils % Lymphocytes % RBC Morphology Polychromasia Anisocytosis ESR 88 H Sodium Potassium 2.5 L* Chloride 92 L Carbon Dioxide Anion Gap 20.0 H BUN Creatinine 3.0 H Glucose 256 H Calcium 8.3 L Phosphorus 2.4 L AST 49 H Alkaline Phosphatase 163 H Lactate Dehydrogenase 299 H Troponin T C-Reactive Protein 12.6 H Albumin 3.1 L Albumin/Globulin Ratio 0.9 L Triglycerides 09/20/18 09/20/18 09/20/18 15:30 15:30 15:24 WBC 15.9 H RBC 3.16 L Hgb 8.4 L Hct 27.8 L MCHC 30.4 L RDW 19.1 H Plt Count 687 H MPV 6.4 L Gran % 80.6 H Lymph % (Auto) 11.7 L Gran # 12.8 H [place] # (Auto) 1.0 H Seg Neutrophils % Lymphocytes % RBC Morphology Polychromasia Anisocytosis ESR Sodium Potassium 2.4 L* Chloride 93 L Carbon Dioxide 32 H Anion Gap BUN 7 L Creatinine 2.2 H Glucose 149 H Calcium 8.5 L Phosphorus AST 77 H Alkaline Phosphatase 172 H Lactate Dehydrogenase Troponin T 0.33 H* C-Reactive Protein Albumin 3.1 L Albumin/Globulin Ratio 0.9 L Triglycerides Meds: Medications Acetaminophen (Tylenol) 650 mg PO Q4-6HP PRN PRN Reason: PAIN/FEVER > 101 Last Admin: 09/21/18 21:00 Dose: 650 mg Documented by: Albuterol/Ipratropium (Duoneb) 3 ml NEB Q4HRT [facility] Last Admin: 09/22/18 02:36 Dose: 3 ml Documented by: Amlodipine Besylate (Norvasc) 10 mg PO HS [facility] Last Admin: 09/21/18 20:55 Dose: Not Given Documented by: Budesonide (Pulmicort) 0.5 mg NEB Q12 [facility] Last Admin: 09/21/18 19:39 Dose: 0.5 mg Documented by: Calcium Carbonate/Glycine (Tums) 1,000 mg CHEWED DAILY [facility] Citalopram Hydrobromide (Celexa) 20 mg PO DAILY [facility] Clonidine HCl (Catapres Tts 2) 1 patch TD Q7D [facility] Clopidogrel Bisulfate (Plavix) 75 mg PO DAILY [facility] Dextrose (Dextrose 50%) 0 ml IV UD PRN PRN Reason: Hypoglycemia Diagnostic Test (Pha) (Accu-Chek) 1 each FS ACHS [facility] Last Admin: 09/21/18 20:54 Dose: 1 each Documented by: Docusate Sodium (Colace) 100 mg PO BID [facility] Last Admin: 09/21/18 20:34 Dose: 100 mg Documented by: Famotidine (Pepcid) 20 mg IV HS [facility] Last Admin: 09/21/18 20:33 Dose: 20 mg Documented by: Furosemide (Lasix) 80 mg PO DAILY [facility] Gabapentin (Neurontin) 300 mg PO DAILY [facility] Glucose (Insta-Glucose) 15 gm PO PRN PRN PRN Reason: Hypoglycemia Heparin Sodium (Porcine) (Heparin) 5,000 unit SQ Q12 [facility] Last Admin: 09/21/18 20:34 Dose: 5,000 unit Documented by: Azithromycin 500 mg/ Dextrose 250 mls @ 250 mls/hr IV Q24H [facility] Stop: 09/23/18 10:59 Meropenem 1 gm/ Sodium (Chloride) 50 mls @ 100 mls/hr IV Q24H [facility] Insulin Glargine (Lantus) 12 unit SQ DAILY [facility] Insulin Human Lispro (Humalog) 0 unit SQ ACHS [facility]; Protocol Last Admin: 09/21/18 21:01 Dose: 6 units Documented by: Isosorbide Mononitrate (Imdur) 30 mg PO DAILY [facility] Methylprednisolone Sodium Succinate (Solu-Medrol) 40 mg IV Q12 [facility] Last Admin: 09/21/18 20:33 Dose: 40 mg Documented by: Ondansetron HCl (Zofran) 4 mg IV Q4-6HP PRN PRN Reason: Nausea And Vomiting Umeclidinium/Vilantarol 62.5/25 Mcg Inhaler 1 dose INH DAILY [facility] Promethazine HCl (Phenergan) 12.5 mg IV Q4-6HP PRN PRN Reason: Nausea And Vomiting Quetiapine Fumarate (Seroquel) 100 mg PO DAILY [facility] Senna (Senokot) 1 tab PO DAILYP PRN PRN Reason: Constipation Sodium Chloride (Saline Flush) 10 ml IV Q8 [facility] Last Admin: 09/22/18 05:22 Dose: 10 ml Documented by: Vancomycin HCl (Vancomycin Per Pharmacy) 1 order IV UD [facility] Medical - PN: A/P - Time Spent With Patient Total time spent is greater than 50% in coordination of care (as documented) at patient's floor/unit and/or counseling patient: - Narrative A/P Narrative: A: *Acute on chronic hypoxic respiratory failure: / PNA and underlying lung pathology -down to 4L NC from NRB 10L in ED; desats quickly off O2 *Pneumonia (multiple hospitalizations recently from June through August 24): History of ESBL organisms, MRSA screen positive -resp viral panel neg *Sepsis: -leukocytosis component of steroids, no bandemia *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 Miller *Hypokalemia: per Dr. Tafoya *Thrombocytosis: Likely reactive, slowly improving *Sinusitis: *Oropharyngeal dysphagia, mod/severe: *Goals of care: Poor functional status wheelchair bound, multiple hospitalizations, decline. Daughter is POA. P: -vanco/Merrem/Azithro, pending BC/SC -O2 support -corticosteroids (wean)/Nebs -IS/Acapella/RT -sputum cytology -Discussed the case with Dr. Dahl who reviewed some of the imaging and felt this would likely be inflammatory superimposed on bad emphysema, however cannot rule out malignancy. Will order autoimmune and vasculitis labs, follow-up with Dr. Dahl outpatient -Dr. Tafoya for HD -cont ASA/Plavix -lantus and SSI -dysphagia diet per ST eval; f/u with GI outpt for f/u EGD - -pt/ot -Smoking cessation counseling -ppx: heparin/ppi Medical - PN: Qual - VTE Deep Vein Thrombosis/Pulmonary Embolism Present on Admission: No
[2018-09-22] MEDS: BUDESONIDE 0.5 MG/2 ML AMPUL.NEB NEB SCH ×2 (08:12→19:31)
[2018-09-22 08:14] LABS: Erythrocyte Sedimentation Rate 36 mm/hr (0-20)
--- NOTE | 2018-09-22 08:27 | XRay Report ---
HISTORY: Follow-up pneumonia FINDINGS: There are moderate generalized increased interstitial lung markings throughout both lung tse. There is a focal air or prominent peripheral consolidation laterally in the left mid thorax which corresponds with the site of one of the nodular infiltrates seen on the prior chest CT. The nodular infiltrates seen bilaterally on the chest CT done on 09/20/18 are very difficult to detect on the current chest x-ray. Comparison with the chest x-ray done on 09/20/18 there has been no significant change. The heart size is normal. The dialysis catheter remains well-positioned. There is no pneumothorax or evidence of a pleural effusion. IMPRESSION: Stable widespread interstitial infiltrates throughout both lungs, superimposed upon underlying emphysema Interpreted and Authenticated by: Piop Chavira 09/22/18
[2018-09-22] MEDS ORDERED: INSULIN GLARGINE, HUMAN 1 UNIT/0.01 ML SQ SCH (09:00)
[2018-09-22] MEDS ORDERED: MEROPENEM 1 GM in 0.9 % SODIUM CHLORIDE 50 ML IV SCH (09:00)
[2018-09-22] MEDS ORDERED: cloNIDine TTS 2 1 PATCH PATCH TD SCH ×2 (10:00)
[2018-09-22] MEDS: INSULIN LISPRO 1 UNIT/0.01 ML UNIT SQ SCH ×4 (10:57→21:20)
[2018-09-22] MEDS ORDERED: guaiFENesin 600 MG TAB.SR.12H PO PRN (11:27)
[2018-09-22] MEDS: methylPREDNISolone SOD SUCC 40 MG/ML VIAL IV SCH ×2 (13:35→21:20)
[2018-09-22] MEDS: HEPARIN 5,000 UNIT/ML VIAL SQ SCH ×2 (13:35→21:19)
[2018-09-22] MEDS: ISOSORBIDE MONONITRATE 30 MG TAB.XL.24H PO SCH (13:36)
[2018-09-22] MEDS: DOCUSATE SODIUM 100 MG CAPSULE PO SCH ×2 (13:36→21:04)
[2018-09-22] MEDS: CLOPIDOGREL 75 MG TABLET PO SCH (13:36)
[2018-09-22] MEDS: HYDROcodone/APAP 5/325MG TABLET PO PRN (13:37)
[2018-09-22] MEDS: CITALOPRAM 20 MG TABLET PO SCH (13:37)
[2018-09-22] MEDS: QUEtiapine 100 MG TABLET PO SCH (13:37)
[2018-09-22] MEDS: GABAPENTIN 300 MG CAPSULE PO SCH (13:37)
[2018-09-22] MEDS: FUROSEMIDE 80 MG TABLET PO SCH (13:38)
[2018-09-22] MEDS: CALCIUM CARBONATE 500 MG TAB.CHEW CHEWED SCH (13:39)
[2018-09-22] MEDS: VILANTEROL INH SCH (13:39)
[2018-09-22] MEDS: UMECLIDINIUM INH SCH (13:39)
[2018-09-22] MEDS: AZITHROMYCIN 500 MG in DEXTROSE 5% IN WATER 250 ML IV SCH (13:40)
[2018-09-22] MEDS: MEROPENEM 1 GM in 0.9 % SODIUM CHLORIDE 50 ML IV SCH (13:40)
[2018-09-22 13:56] LABS: Vancomycin,Random 9.6 ug/mL
[2018-09-22] MEDS ORDERED: VANCOMYCIN 1,000 MG in 0.9 % SODIUM CHLORIDE 250 ML IV ONE (15:00)
[2018-09-22] MEDS ORDERED: amLODIPine 5 MG TABLET PO SCH (21:00)
[2018-09-22] MEDS: FAMOTIDINE/PF 20 MG/2 ML VIAL IV SCH (21:19)
[2018-09-23] MEDS: IPRATROPIUM/ALBUTEROL 3 ML AMPUL.NEB NEB SCH ×6 (03:14→23:20)
[2018-09-23] MEDS: 0.9 % SODIUM CHLORIDE 10 ML SYRINGE IV SCH ×3 (05:52→20:30)
[2018-09-23 05:56] LABS: Mean Cell Volume 89.5 fL (80.0-100.0); Mean Corpuscular HGB Conc 30.8 g/dL (31.0-36.0); Platelet Count 626 K/mcL (140-440); RBC 3.23 M/mcL (4.00-5.20); Red Cell Distribution Width 19.6 % (11.5-14.5)
[2018-09-23 06:24] LABS: ALT/SGPT 23 U/l (0-40); Albumin 2.9 gm/dL (3.2-5.2); Alkaline Phosphatase 137 U/L (39-117); Bilirubin,Direct < 0.2 mg/dL (0.0-0.3); Blood Urea Nitrogen 14 mg/dl (8-23); C-Reactive Protein 2.9 mg/dl (0.0-0.8); Gamma Glutamyl Transpeptidase 29 U/L (5-36); Uric Acid 3.5 mg/dL (2.5-8.0)
[2018-09-23 06:56] LABS: Anisocytosis 1+ (NONE SEEN); Band Neutrophils % 4 % (0-10); Hypochromasia 1+ (NONE SEEN); Lymphocytes % 4 % (15-49); Metamyelocytes % 2 % (0-0); Monocytes % (Manual) 2 % (1-12); Myelocytes % 1 % (0-0); Platelet Estimate INCREASED (NORMAL); RBC Morphology ABNORM (NORMAL); Segmented Neutrophils % 87 % (38-78)
--- NOTE | 2018-09-23 06:59 | Internal Med Progress Note ---
Medical - PN: Subj Patient information: Note initiated : 09/23/18 at 6:50 am Service Date, if different from initiated Date: [] Patient: Cherelle Mcpherson 62 y/o F admitted on 09/20/18 for altered LOC. Chief Complaint: [] Interval history: Ms. Mcpherson is a 62 year old F who resides at a local [facility] facility who presents the ED with decreased LOC, productive cough. Patient had dialysis this morning. She had oxygen saturations on room air as well as 65% of the nursing facility, [place]. Required nonrebreather 6 L in the ED. She has had multiple hospitalizations at [facility] as well as several here over the past year for pneumonia and heart failure. History obtained from the daughter and from patient. Sounds like couple days ago the patient had some earache in the left. Other than that no other complaints, although daughters feels that she is never really recovered from recent hospitalizations. In the nursing facility she had oxygen saturations in the high 60s low 70s and even on 6 L nasal cannula she was 85% per the nursing facility. Her daughter believe she is on 4 L of nasal cannula typically. Patient does have a cough which is chronic per the daughter feels like it is more frequent than usual. [place] patient feels much more weak and fatigued. She has increased shortness of breath above baseline. Has a headache but no fevers or chills. No chest pain. In the ED she had CT chest as well as CT head for somnolence. CT head showed old strokes. The CT chest with widespread nodular infiltrates question inflammatory versus metastases. She has had nodular lesions since March. CT chest with consolidations as well. Her lactate was okay but her pro- calcitonin was elevated. She did receive dialysis this morning. She is noted to have hypokalemia but per discussion with the ice scraper he instructed the ED physician not to treat it at this time. EKG with sinus tach and PACs. No chest pain. Admitted through ED with pneumonia and COPD exacerbation. Her daughter is at bedside, who is her POA. Per her daughter her mentation is at baseline. 09/21 Slept okay last night. Feels tired may be a little better than yesterday. Has a cough but she is unable to produce any sputum. Shortness of breath is better, not quite at baseline. Decreased hearing in left ear, unknown chronicity. Sitting up in the chair, answering questions appropriately. 09/22 Feels weak and tired. Says she slept okay. Has a productive cough of white sputum. Shortness of breath is near baseline. She is undergoing dialysis and tolerating at this time. Has chronic pain she takes hydrocodone at home with help of finally verified just now that she takes it. 09/23 Feeling a little better today. Her energy. Still has her cough occasionally productive. Shortness of breath continues to improve. Uneventful night. Video swallow pending. Weaning steroids. Oxygen requirements are near baseline. Review of Systems: denies headache/fever/chills/nausea/vomiting/chest or abdominal pain/diarrhea. Otherwise see above. - Constitutional Vitals: Vital Signs Temp Pulse Resp BP Pulse Ox 98.3 F 87 23 H 146/92 93 09/22/18 20:00 09/22/18 22:45 09/23/18 00:00 09/23/18 00:00 09/23/18 00:00 Period Temp Pulse Resp BP Sys/Talley Pulse Ox Last 24 Hr 98.0 F-99.1 F 83-107 16-32 114-159/61-100 88-100 Intake and Output 09/22/18 09/23/18 09/23/18 21:59 05:59 13:59 Intake Total 670 100 Balance 670 100 Weight 69.173 kg Intake & Output: Intake & Output 09/22/18 09/23/18 09/23/18 21:59 05:59 13:59 Intake Total 670 100 Balance 670 100 Weight 69.173 kg Intake: IV 550 Zithromax 500 mg In Dextrose 5% 250 in Water 250 ml @ 250 mls/hr IV Q24H [facility] Rx#:[id number] Merrem 1 gm In Sodium Chloride 50 0.9% 50 ml @ 100 mls/hr IV Q24H [facility] Rx#:[id number] Vancomycin 1,000 mg In Sodium 250 Chloride 0.9% 250 ml @ 250 mls/ hr IV ONCE ONE Rx#:[id number] Oral 120 100 Other: Meal Lunch Percent of Meal Consumed 25% Stool Size Moderate Stool Color Brown Stool Consistency Loose # Bowel Movements 1 Exam: General: Awake, No acute Distress Eyes/N/T: EOMI, Head/Neck: neck supple, CV: Regular, 3/6 SM, Pulm: Clear laterally, no wheezing, better aeration abd: soft, nontender, +BS x4 Ext: no clubbing/cyanosis, 1+ chronic bilateral lower extremity edema improved Neuro: moves all extremities, answers questions appropriately, follows commands Skin: warm/dry Medical - PN: Obj Da - Labs CBC & Chem 7: 09/23/18 03:42 09/23/18 03:42 Labs: Abnormal Lab Results 09/23/18 09/23/18 09/22/18 03:42 03:42 04:07 WBC 17.5 H RBC 3.23 L Hgb 8.9 L Hct 28.9 L MCHC 30.8 L RDW 19.6 H Plt Count 626 H MPV 6.6 L Gran % Lymph % (Auto) Gran # [place] # (Auto) Seg Neutrophils % Lymphocytes % Metamyelocytes % Myelocytes % RBC Morphology Polychromasia Hypochromasia Anisocytosis ESR Sodium 131 L Potassium 3.1 L Chloride 95 L 92 L Carbon Dioxide Anion Gap BUN 27 H Creatinine 2.5 H 4.0 H Glucose 172 H 316 H Calcium 8.3 L 8.3 L Phosphorus 1.6 L 2.2 L AST Alkaline Phosphatase 137 H 145 H Lactate Dehydrogenase 306 H 320 H Troponin T C-Reactive Protein 2.9 H 4.9 H Total Protein 5.8 L Albumin 2.9 L 2.9 L Albumin/Globulin Ratio 0.9 L Triglycerides 188 H 09/22/18 09/21/18 09/21/18 04:07 03:35 03:34 WBC 17.9 H 18.4 H RBC 2.90 L 3.11 L Hgb 8.0 L 8.6 L Hct 25.7 L 27.8 L MCHC RDW 19.7 H 18.9 H Plt Count 622 H 665 H MPV 6.7 L 6.9 L Gran % Lymph % (Auto) Gran # Mora # (Auto) Seg Neutrophils % 82 H 94 H Lymphocytes % 1 L 3 L Metamyelocytes % 2 H Myelocytes % 2 H RBC Morphology Abnorm A Abnorm A Polychromasia 2+ A 1+ A Hypochromasia 1+ A Anisocytosis 1+ A 1+ A ESR 36 H Sodium Potassium 2.5 L* Chloride 92 L Carbon Dioxide Anion Gap 20.0 H BUN Creatinine 3.0 H Glucose 256 H Calcium 8.3 L Phosphorus 2.4 L AST 49 H Alkaline Phosphatase 163 H Lactate Dehydrogenase 299 H Troponin T C-Reactive Protein Total Protein Albumin 3.1 L Albumin/Globulin Ratio 0.9 L Triglycerides 09/20/18 09/20/18 09/20/18 19:51 19:51 15:30 WBC RBC Hgb Hct MCHC RDW Plt Count MPV Gran % Lymph % (Auto) Gran # Mora # (Auto) Seg Neutrophils % Lymphocytes % Metamyelocytes % Myelocytes % RBC Morphology Polychromasia Hypochromasia Anisocytosis ESR 88 H Sodium Potassium 2.4 L* Chloride 93 L Carbon Dioxide 32 H Anion Gap BUN 7 L Creatinine 2.2 H Glucose 149 H Calcium 8.5 L Phosphorus AST 77 H Alkaline Phosphatase 172 H Lactate Dehydrogenase Troponin T C-Reactive Protein 12.6 H Total Protein Albumin 3.1 L Albumin/Globulin Ratio 0.9 L Triglycerides 09/20/18 09/20/18 15:30 15:24 WBC 15.9 H RBC 3.16 L Hgb 8.4 L Hct 27.8 L MCHC 30.4 L RDW 19.1 H Plt Count 687 H MPV 6.4 L Gran % 80.6 H Lymph % (Auto) 11.7 L Gran # 12.8 H Mora # (Auto) 1.0 H Seg Neutrophils % Lymphocytes % Metamyelocytes % Myelocytes % RBC Morphology Polychromasia Hypochromasia Anisocytosis ESR Sodium Potassium Chloride Carbon Dioxide Anion Gap BUN Creatinine Glucose Calcium Phosphorus AST Alkaline Phosphatase Lactate Dehydrogenase Troponin T 0.33 H* C-Reactive Protein Total Protein Albumin Albumin/Globulin Ratio Triglycerides Meds: Medications Acetaminophen (Tylenol) 650 mg PO Q4-6HP PRN PRN Reason: PAIN/FEVER > 101 Last Admin: 09/21/18 21:00 Dose: 650 mg Documented by: Hydrocodone Bitart/Acetaminophen ([place] 5/325mg) 1 tab PO Q4-6HP PRN PRN Reason: PAIN LEVEL 3-6 Last Admin: 09/22/18 13:37 Dose: 1 tab Documented by: Albuterol/Ipratropium (Duoneb) 3 ml NEB Q4HRT [facility] Last Admin: 09/23/18 03:14 Dose: 3 ml Documented by: Amlodipine Besylate (Norvasc) 5 mg PO HS [facility] Last Admin: 09/22/18 21:18 Dose: 5 mg Documented by: Budesonide (Pulmicort) 0.5 mg NEB Q12 [facility] Last Admin: 09/22/18 19:31 Dose: 0.5 mg Documented by: Calcium Carbonate/Glycine (Tums) 1,000 mg CHEWED DAILY [facility] Last Admin: 09/22/18 13:39 Dose: 1,000 mg Documented by: Citalopram Hydrobromide (Celexa) 20 mg PO DAILY [facility] Last Admin: 09/22/18 13:37 Dose: 20 mg Documented by: Clonidine HCl (Catapres Tts 2) 1 patch TD Q7D [facility] Last Admin: 09/22/18 13:38 Dose: 1 patch Documented by: Clopidogrel Bisulfate (Plavix) 75 mg PO DAILY [facility] Last Admin: 09/22/18 13:36 Dose: 75 mg Documented by: Dextrose (Dextrose 50%) 0 ml IV UD PRN PRN Reason: Hypoglycemia Diagnostic Test (Pha) (Accu-Chek) 1 each FS ACHS [facility] Last Admin: 09/22/18 21:04 Dose: 1 each Documented by: Docusate Sodium (Colace) 100 mg PO BID [facility] Last Admin: 09/22/18 21:04 Dose: Not Given Documented by: Famotidine (Pepcid) 20 mg IV HS [facility] Last Admin: 09/22/18 21:19 Dose: 20 mg Documented by: Furosemide (Lasix) 80 mg PO DAILY [facility] Last Admin: 09/22/18 13:38 Dose: 80 mg Documented by: Gabapentin (Neurontin) 300 mg PO DAILY [facility] Last Admin: 09/22/18 13:37 Dose: 300 mg Documented by: Glucose (Insta-Glucose) 15 gm PO PRN PRN PRN Reason: Hypoglycemia Guaifenesin (Mucinex) 600 mg PO BIDP PRN PRN Reason: Congestion Heparin Sodium (Porcine) (Heparin) 5,000 unit SQ Q12 [facility] Last Admin: 09/22/18 21:19 Dose: 5,000 unit Documented by: Azithromycin 500 mg/ Dextrose 250 mls @ 250 mls/hr IV Q24H [facility] Stop: 09/23/18 10:59 Last Infusion: 09/22/18 17:03 Dose: Infused Documented by: Meropenem 1 gm/ Sodium (Chloride) 50 mls @ 100 mls/hr IV Q24H [facility] Last Infusion: 09/22/18 15:39 Dose: Infused Documented by: Insulin Glargine (Lantus) 12 unit SQ DAILY [facility] Last Admin: 09/22/18 13:38 Dose: 12 units Documented by: Insulin Human Lispro (Humalog) [address] [facility]; Protocol Last Admin: 09/22/18 21:20 Dose: 8 units Documented by: Isosorbide Mononitrate (Imdur) 30 mg PO DAILY [facility] Last Admin: 09/22/18 13:36 Dose: 30 mg Documented by: Methylprednisolone Sodium Succinate (Solu-Medrol) 40 mg IV Q12 [facility] Last Admin: 09/22/18 21:20 Dose: 40 mg Documented by: Ondansetron HCl (Zofran) 4 mg IV Q4-6HP PRN PRN Reason: Nausea And Vomiting Umeclidinium/Vilantarol 62.5/25 Mcg Inhaler 1 dose INH DAILY [facility] Last Admin: 09/22/18 13:39 Dose: 1 dose Documented by: Promethazine HCl (Phenergan) 12.5 mg IV Q4-6HP PRN PRN Reason: Nausea And Vomiting Quetiapine Fumarate (Seroquel) 100 mg PO DAILY [facility] Last Admin: 09/22/18 13:37 Dose: 100 mg Documented by: Senna (Senokot) 1 tab PO DAILYP PRN PRN Reason: Constipation Sodium Chloride (Saline Flush) 10 ml IV Q8 [facility] Last Admin: 09/23/18 05:52 Dose: 10 ml Documented by: Vancomycin HCl (Vancomycin Per Pharmacy) 1 order IV [facility] Medical - PN: A/P - Time Spent With Patient Total time spent is greater than 50% in coordination of care (as documented) at patient's floor/unit and/or counseling patient: - Narrative A/P Narrative: A: *Acute on chronic hypoxic respiratory failure: 2/2 PNA and underlying lung pathology -down to 3-4L NC from NRB 10L in ED; desats quickly off O2 *Pneumonia (Aspiration) (multiple hospitalizations recently from June through August 24): History of ESBL organisms, MRSA screen positive -resp viral panel neg -preliminary cx's negative so far -SC neg *Sepsis: -leukocytosis component of steroids, no bandemia *AECOPD(4L NC@SNF): *lung nodules: malignant vs inflammatory; have more or less been present since March 2018 with various changes in sizes -last colonoscopy <5yrs per pt -RF/MAITE unremarkable low -ESR/CRP improved *ESRD: follows with [facility] *Anemia, acute on chronic: rectal exam in ED was guaiac negative -hgb 10.4 on 08/27, here mid 8's and stable *h/o dCHF: *DM: *h/o CVA's *HTN/HLD: *Depression/anxiety: on sertraline and quetiapine *Tobacco abuse: *Recent esophageal obstruction w/food impaction: Was put on a soft diet and was supposed to have a follow-up EGD around this time with Dr. Miller *Hypokalemia/hyponatremia: per Dr. Tafoya *Thrombocytosis: Likely reactive, slowly improving *Sinusitis: *Oropharyngeal dysphagia, mod/severe: *Goals of care: Poor functional status wheelchair bound, multiple hospitalizations, decline. Daughter is POA. cont current care P: -Video swallow today -vanco/Merrem/Azithro, finish azithro and stop vanco, pending BC/SC -O2 support -corticosteroids (wean)/Nebs -IS/Acapella/RT -sputum cytology -Discussed the case with Dr. Dahl who reviewed some of the imaging and felt this would likely be inflammatory superimposed on bad emphysema, however cannot rule out malignancy. Will order autoimmune and vasculitis labs, follow-up with Dr. Dahl outpatient -Dr. Tafoya for HD -cont ASA/Plavix -lantus (increase)and SSI -dysphagia diet per ST eval; f/u with GI outpt for f/u EGD - -pt/ot -Smoking cessation counseling -ppx: heparin/ppi Medical - PN: Qual - VTE Deep Vein Thrombosis/Pulmonary Embolism Present on Admission: No
[2018-09-23] MEDS: DOCUSATE SODIUM 100 MG CAPSULE PO SCH ×2 (08:06→20:28)
[2018-09-23] MEDS: BUDESONIDE 0.5 MG/2 ML AMPUL.NEB NEB SCH ×2 (08:13→19:37)
[2018-09-23] MEDS: CITALOPRAM 20 MG TABLET PO SCH (08:23)
[2018-09-23] MEDS: ISOSORBIDE MONONITRATE 30 MG TAB.XL.24H PO SCH (08:23)
[2018-09-23] MEDS: CLOPIDOGREL 75 MG TABLET PO SCH (08:23)
[2018-09-23] MEDS: CALCIUM CARBONATE 500 MG TAB.CHEW CHEWED SCH (08:23)
[2018-09-23] MEDS: HEPARIN 5,000 UNIT/ML VIAL SQ SCH ×2 (08:23→20:29)
[2018-09-23] MEDS: HYDROcodone/APAP 5/325MG TABLET PO PRN (08:24)
[2018-09-23] MEDS: GABAPENTIN 300 MG CAPSULE PO SCH (08:24)
[2018-09-23] MEDS: INSULIN LISPRO 1 UNIT/0.01 ML UNIT SQ SCH ×4 (08:24→20:29)
[2018-09-23] MEDS: MEROPENEM 1 GM in 0.9 % SODIUM CHLORIDE 50 ML IV SCH (08:29)
[2018-09-23] MEDS: QUEtiapine 100 MG TABLET PO SCH (08:30)
[2018-09-23] MEDS: FUROSEMIDE 80 MG TABLET PO SCH (08:30)
[2018-09-23] MEDS: UMECLIDINIUM INH SCH (08:31)
[2018-09-23] MEDS: VILANTEROL INH SCH (08:31)
[2018-09-23] MEDS ORDERED: methylPREDNISolone SOD SUCC 40 MG/ML VIAL IV SCH (09:00)
[2018-09-23] MEDS ORDERED: INSULIN GLARGINE, HUMAN 1 UNIT/0.01 ML SQ SCH (09:00)
[2018-09-23] MEDS: AZITHROMYCIN 500 MG in DEXTROSE 5% IN WATER 250 ML IV SCH (10:00)
--- NOTE | 2018-09-23 11:23 | Discharge Summary ---
Medical - DS: Prov Patient information: Note initiated : 09/23/18 at 11:17 am Service Date, if different from initiated Date: [] Patient: Covert,Cherelle gonzalez 62 y/o F admitted on 09/20/18 for altered LOC. Chief Complaint: [] Date of admission: 09/20/18 19:19 Discharge date: 09/24/18 Primary care physician: Leta Araujo Consults: 09/20/18 Consult to Physician [CONS] Stat Comment: Consulting Provider: Chaitanya Baldwin Reason For Exam: Physician to Consult Consult to Physician [CONS] Stat Comment: Consulting Provider: Nathan Tafoya Reason For Exam: Physician to Consult Medical - DS: Meds - Discharge Medications Prescriptions: HYDROcodone/APAP 5/325MG [Christine 5-325Mg] 1 tab PO Q4-6HP PRN #20 tab PRN Reason: Pain Level 3-6 Levofloxacin [Levaquin] 500 mg PO Q48H #2 tab metroNIDAZOLE [Flagyl] 500 mg PO TID #9 tab predniSONE [Prednisone] 40 mg PO DAILY #1 tab Active and Home Medications: Home Medications Citalopram Hydrobromide [Celexa] 20 mg PO DAILY 07/11/15 [History Confirmed 09/22/18 Last Taken 09/19/18 08:00] Furosemide [Lasix] 80 mg PO DAILY 07/11/15 [History Confirmed 09/22/18 Last Taken 09/19/18 08:00] Gabapentin [Neurontin] 300 mg PO DAILY 07/11/15 [History Confirmed 09/22/18 Last Taken 09/19/18 08:00] QUEtiapine FUMARATE [Seroquel] 100 mg PO DAILY 07/11/15 [History Confirmed 09/22/18 Last Taken 09/19/18 08:00] Vit B Cmplx 3/FA/Vit C/Biotin [[place]-Suzan Rx Tablet] 1 each PO DAILY 07/11/15 [History Confirmed 09/20/18 Last Taken 07/18/18 07:30] Ascorbic Acid [Vitamin C] 250 mg PO BID 07/18/18 [History Confirmed 09/22/18 Last Taken 09/19/18 08:00] Aspirin [Aspirin EC] 81 mg PO DAILY 07/18/18 [History Confirmed 09/22/18 Last Taken 09/20/18 08:00] Clopidogrel Bisulfate [Plavix] 75 mg PO DAILY 07/18/18 [History Confirmed 09/22/18 Last Taken 09/19/18 08:00] Isosorbide Mononitrate [Imdur] 30 mg PO DAILY 07/18/18 [History Confirmed 09/22/18 Last Taken 09/19/18 08:00] Polyvinyl Alcohol [Artificial Tears] 1 gtt OP BID 07/18/18 [History Confirmed 09/20/18 Last Taken 07/18/18 07:30] Umeclidinium Vilantarol 1 puff INH DAILY 07/18/18 [History Confirmed 09/20/18 Last Taken 07/18/18 07:30] Alendronate Sodium [Fosamax] 70 mg PO WEEKLY 09/20/18 [History Confirmed 09/22/18 Last Taken 09/16/18 08:00] Calcium Carbonate [Tums] 1,000 mg CHEWED DAILY 09/20/18 [History Confirmed 09/22/18 Last Taken 09/19/18 06:30] Folic Acid/Vit Bcomp,C [Super B-Complex Folic-Vit C Tb] 400 mcg PO DAILY 09/20/18 [History Confirmed 09/22/18 Last Taken 09/19/18 08:00] Insulin Detemir [Levemir] 12 unit SQ DAILY 09/20/18 [History Confirmed 09/22/18 Last Taken 09/19/18 07:00] Vitamin D3 5,000 unit PO DAILY 09/20/18 [History Confirmed 09/22/18 Last Taken 09/19/18 08:00] amLODIPine [Norvasc] 10 mg PO HS 09/20/18 [History Confirmed 09/22/18 Last Taken 09/19/18 21:00] cloNIDine [Catapres-Tts 2] 1 patch TOPICAL WEEKLY 09/20/18 [History Confirmed 09/22/18 Last Taken 09/04/18] Albuterol Sulfate 2.5 mg INH Q2HP PRN 09/22/18 [History Confirmed 09/22/18 Last Taken Unknown] Budesonide 0.25 mg INH BID 09/22/18 [History Confirmed 09/22/18 Last Taken 09/18/18 21:00] Dextran 70/Hypromellose [Artificial Tears] 1 drp OD BID 09/22/18 [History Confirmed 09/22/18 Last Taken 09/19/18 06:00] Docusate Sodium [Dulcoease] 100 mg PO BID 09/22/18 [History Confirmed 09/22/18 Last Taken 09/19/18 08:00] Duoneb 1 cap INH QID 09/22/18 [History Confirmed 09/22/18 Last Taken 09/19/18 21:00] Lactulose 30 mg PO BIDP PRN 09/22/18 [History Confirmed 09/22/18 Last Taken Unknown] Melatonin 3 mg PO PRN 09/22/18 [History Last Taken 09/15/18 22:00] Metoprolol Succinate 25 mg PO BID 09/22/18 [History Confirmed 09/22/18 Last Taken Unknown] Milk of Magnesia 30 ml PO PRN PRN 09/22/18 [History Confirmed 09/22/18 Last Taken Unknown] Nitroglycerin [Nitrostat] PRN 09/22/18 [History Last Taken Unknown] Christine 5-325 Tablet 1 tab PO Q6HP PRN 09/22/18 [History Confirmed 09/22/18 Last Taken 09/17/18 21:00] Pantoprazole 1 tab PO BID 09/22/18 [History Confirmed 09/22/18 Last Taken Unknown] Phoslo 1,334 mg PO QID 09/22/18 [History Confirmed 09/22/18 Last Taken 09/19/18 23:00] Renvela 1,600 mg PO QID 09/22/18 [History Confirmed 09/22/18 Last Taken Unknown] Tiotropium [place] [Spiriva] 09/22/18 [History Last Taken Unknown] Umeclidinium [place] [Incruse Ellipta] 1 puff INH 09/22/18 [History Last Taken 09/19/18 08:00] Home Medications Citalopram Hydrobromide [Celexa] 20 mg PO DAILY 07/11/15 [History Confirmed 09/22/18 Last Taken 09/19/18 08:00] Furosemide [Lasix] 80 mg PO DAILY 07/11/15 [History Confirmed 09/22/18 Last Taken 09/19/18 08:00] Gabapentin [Neurontin] 300 mg PO DAILY 07/11/15 [History Confirmed 09/22/18 Last Taken 09/19/18 08:00] QUEtiapine FUMARATE [Seroquel] 100 mg PO DAILY 07/11/15 [History Confirmed 09/22/18 Last Taken 09/19/18 08:00] Vit B Cmplx 3/FA/Vit C/Biotin [Malou-Suzan Rx Tablet] 1 each PO DAILY 07/11/15 [History Confirmed 09/20/18 Last Taken 07/18/18 07:30] Ascorbic Acid [Vitamin C] 250 mg PO BID 07/18/18 [History Confirmed 09/22/18 Last Taken 09/19/18 08:00] Aspirin [Aspirin EC] 81 mg PO DAILY 07/18/18 [History Confirmed 09/22/18 Last Taken 09/20/18 08:00] Clopidogrel Bisulfate [Plavix] 75 mg PO DAILY 07/18/18 [History Confirmed 09/22/18 Last Taken 09/19/18 08:00] Isosorbide Mononitrate [Imdur] 30 mg PO DAILY 07/18/18 [History Confirmed 09/22/18 Last Taken 09/19/18 08:00] Polyvinyl Alcohol [Artificial Tears] 1 gtt OP BID 07/18/18 [History Confirmed 09/20/18 Last Taken 07/18/18 07:30] Umeclidinium Vilantarol 1 puff INH DAILY 07/18/18 [History Confirmed 09/20/18 Last Taken 07/18/18 07:30] Alendronate Sodium [Fosamax] 70 mg PO WEEKLY 09/20/18 [History Confirmed 09/22/18 Last Taken 09/16/18 08:00] Calcium Carbonate [Tums] 1,000 mg CHEWED DAILY 09/20/18 [History Confirmed 09/22/18 Last Taken 09/19/18 06:30] Folic Acid/Vit Bcomp,C [Super B-Complex Folic-Vit C Tb] 400 mcg PO DAILY 09/20/18 [History Confirmed 09/22/18 Last Taken 09/19/18 08:00] Insulin Detemir [Levemir] 12 unit SQ DAILY 09/20/18 [History Confirmed 09/22/18 Last Taken 09/19/18 07:00] Vitamin D3 5,000 unit PO DAILY 09/20/18 [History Confirmed 09/22/18 Last Taken 09/19/18 08:00] amLODIPine [Norvasc] 10 mg PO HS 09/20/18 [History Confirmed 09/22/18 Last Taken 09/19/18 21:00] cloNIDine [Catapres-Tts 2] 1 patch TOPICAL WEEKLY 09/20/18 [History Confirmed 09/22/18 Last Taken 09/04/18] Albuterol Sulfate 2.5 mg INH Q2HP PRN 09/22/18 [History Confirmed 09/22/18 Last Taken Unknown] Budesonide 0.25 mg INH BID 09/22/18 [History Confirmed 09/22/18 Last Taken 09/18/18 21:00] Dextran 70/Hypromellose [Artificial Tears] 1 drp OD BID 09/22/18 [History Confirmed 09/22/18 Last Taken 09/19/18 06:00] Docusate Sodium [Dulcoease] 100 mg PO BID 09/22/18 [History Confirmed 09/22/18 Last Taken 09/19/18 08:00] Duoneb 1 cap INH QID 09/22/18 [History Confirmed 09/22/18 Last Taken 09/19/18 21:00] Lactulose 30 mg PO BIDP PRN 09/22/18 [History Confirmed 09/22/18 Last Taken Unknown] Melatonin 3 mg PO PRN 09/22/18 [History Last Taken 09/15/18 22:00] Metoprolol Succinate 25 mg PO BID 09/22/18 [History Confirmed 09/22/18 Last Taken Unknown] Milk of Magnesia 30 ml PO PRN PRN 09/22/18 [History Confirmed 09/22/18 Last Taken Unknown] Nitroglycerin [Nitrostat] PRN 09/22/18 [History Last Taken Unknown] Christine 5-325 Tablet 1 tab PO Q6HP PRN 09/22/18 [History Confirmed 09/22/18 Last Taken 09/17/18 21:00] Pantoprazole 1 tab PO BID 09/22/18 [History Confirmed 09/22/18 Last Taken Unknown] Phoslo 1,334 mg PO QID 09/22/18 [History Confirmed 09/22/18 Last Taken 09/19/18 23:00] Renvela 1,600 mg PO QID 09/22/18 [History Confirmed 09/22/18 Last Taken Unknown] Tiotropium [place] [Spiriva] 09/22/18 [History Last Taken Unknown] Umeclidinium [place] [Incruse Ellipta] 1 puff INH 09/22/18 [History Last Taken 09/19/18 08:00] Levofloxacin [Levaquin] 500 mg PO Q48H #2 tab 09/23/18 [Rx Last Taken Unknown] metroNIDAZOLE [Flagyl] 500 mg PO TID #9 tab 09/23/18 [Rx Last Taken Unknown] predniSONE [Prednisone] 40 mg PO DAILY #1 tab 09/23/18 [Rx Last Taken Unknown] Medical - DS: Hosp Hospital course: Ms. Mcpherson is a 62 year old F who resides at a local group home facility who presents the ED with decreased LOC, productive cough. Patient had dialysis this morning. She had oxygen saturations on room air as well as 65% of the nursing facility, [place]. Required nonrebreather 6 L in the ED. She has had multiple hospitalizations at [facility] as well as several here over the past year for pneumonia and heart failure. History obtained from the daughter and from patient. Sounds like couple days ago the patient had some earache in the left. Other than that no other complaints, although daughters feels that she is never really recovered from recent hospitalizations. In the nursing facility she had oxygen saturations in the high 60s low 70s and even on 6 L nasal cannula she was 85% per the nursing facility. Her daughter believe she is on 4 L of nasal cannula typically. Patient does have a cough which is chronic per the daughter feels like it is more frequent than usual. [place] patient feels much more weak and fatigued. She has increased shortness of breath above baseline. Has a headache but no fevers or chills. No chest pain. In the ED she had CT chest as well as CT head for somnolence. CT head showed old strokes. The CT chest with widespread nodular infiltrates question inflammatory versus metastases. She has had nodular lesions since March. CT chest with consolidations as well. Her lactate was okay but her pro- calcitonin was elevated. She did receive dialysis this morning. She is noted to have hypokalemia but per discussion with the locomotive boilermaker he instructed the ED physician not to treat it at this time. EKG with sinus tach and PACs. No chest pain. Admitted through ED with pneumonia and COPD exacerbation. Her daughter is at bedside, who is her POA. Per her daughter her mentation is at baseline. 09/21 Slept okay last night. Feels tired may be a little better than yesterday. Has a cough but she is unable to produce any sputum. Shortness of breath is better, not quite at baseline. Decreased hearing in left ear, unknown chronicity. Sitting up in the chair, answering questions appropriately. 09/22 Feels weak and tired. Says she slept okay. Has a productive cough of white sputum. Shortness of breath is near baseline. She is undergoing dialysis and tolerating at this time. Has chronic pain she takes hydrocodone at home with help of finally verified just now that she takes it. 09/23 Feeling a little better today. Her energy. Still has her cough occasionally productive. Shortness of breath continues to improve. Uneventful night. Video swallow pending. Weaning steroids. Oxygen requirements are near baseline. Video swallow obtained and dietary recommendations per speech therapy ordered for discharge. Patient is extremely high risk for readmission, very tenuous at baseline. Discharge diagnosis: Acute on chronic hypoxic respiratory failure aspiration pneumonia sepsis Secondary discharge diagnosis: Acute exacerbation COPD lung nodules end-stage renal disease anemia diastolic heart failure diabetes CVAs hypertension depression anxiety tobacco abuse sinusitis dysphasia - Time Spent with Patient Total time spent providing and/or coordinating discharge services: Greater than 30 minutes Medical - DS: Exam - Constitutional Vitals: Vital Signs Temp Pulse Pulse Resp BP BP Pulse Ox 09/23/18 08:14 100 H 20 09/23/18 08:00 97.3 F 105 H 19 167/95 93 09/23/18 00:00 23 H 146/92 93 09/22/18 22:45 87 20 09/22/18 20:00 98.3 F 18 157/85 90 09/22/18 19:49 85 22 90 09/22/18 19:30 85 22 93 09/22/18 16:43 93 H 19 88 L 09/22/18 16:01 99.1 F H 107 H 21 114/67 91 09/22/18 15:52 96 H 18 159/100 91 09/22/18 15:42 92 H 16 94 09/22/18 15:16 84 22 09/22/18 12:57 92 H 19 159/100 100 09/22/18 12:46 89 19 140/84 100 09/22/18 12:40 98.3 F 97 H 140/84 09/22/18 12:31 90 17 143/79 100 02/27/19 12:27 91 H 143/79 09/22/18 12:16 92 H 19 143/80 100 09/22/18 12:12 100 H 143/80 09/22/18 12:01 94 H 19 143/83 99 09/22/18 11:58 91 H 143/83 09/22/18 11:46 96 H 21 144/85 98 09/22/18 11:44 90 144/85 09/22/18 11:31 87 19 150/71 98 09/22/18 11:27 88 150/71 Intake and Output 09/22/18 09/23/18 09/23/18 21:59 05:59 13:59 Intake Total 670 100 410 Balance 670 100 410 Intake: IV 550 50 Zithromax 500 mg In Dextrose 5% 250 in Water 250 ml @ 250 mls/hr IV Q24H [facility] Rx#:[id number] Merrem 1 gm In Sodium Chloride 50 50 0.9% 50 ml @ 100 mls/hr IV Q24H [facility] Rx#:[id number] Vancomycin 1,000 mg In Sodium 250 Chloride 0.9% 250 ml @ 250 mls/ hr IV ONCE ONE Rx#:[id number] Oral 120 100 360 Other: Meal Lunch Breakfast Percent of Meal Consumed 25% 50% Stool Size Moderate Stool Color Brown Stool Consistency Loose # Bowel Movements 1 Weight 69.173 kg Medical - DS: Data Labs on day of discharge: Labs from last 24 hours 09/23/18 09/23/18 09/22/18 03:42 03:42 13:04 WBC 17.5 H RBC 3.23 L Hgb 8.9 L Hct 28.9 L MCV 89.5 MCH 27.5 MCHC 30.8 L RDW 19.6 H Plt Count 626 H MPV 6.6 L Total Counted 100 Seg Neutrophils % 87 H Band Neutrophils % 4 Lymphocytes % 4 L Monocytes % (Manual) 2 Metamyelocytes % 2 H Myelocytes % 1 H Nucleated RBCs 1 H Platelet Estimate Increased RBC Morphology Abnorm A Polychromasia 1+ A Hypochromasia 1+ A Anisocytosis 1+ A Sodium 136 Potassium 3.6 Chloride 95 L Carbon Dioxide 28 Anion Gap 13.0 BUN 14 Creatinine 2.5 H GFR Calculation 20 Glucose 172 H Uric Acid 3.5 Calcium 8.3 L Phosphorus 1.6 L Magnesium 1.8 Total Bilirubin 0.2 Direct Bilirubin < 0.2 GGT 29 AST 18 ALT 23 Alkaline Phosphatase 137 H Lactate Dehydrogenase 306 H C-Reactive Protein 2.9 H Total Protein 5.8 L Albumin 2.9 L Globulin 2.9 Albumin/Globulin Ratio 1.0 Triglycerides 130 Random Vancomycin 9.6 Vancomycin Dose Not Reportable Vanco Last Dose Time Not Reportable MAITE Screen 09/21/18 10:40 WBC RBC Hgb Hct MCV MCH MCHC RDW Plt Count MPV Total Counted Seg Neutrophils % Band Neutrophils % Lymphocytes % Monocytes % (Manual) Metamyelocytes % Myelocytes % Nucleated RBCs Platelet Estimate RBC Morphology Polychromasia Hypochromasia Anisocytosis Sodium Potassium Chloride Carbon Dioxide Anion Gap BUN Creatinine GFR Calculation Glucose Uric Acid Calcium Phosphorus Magnesium Total Bilirubin Direct Bilirubin GGT AST ALT Alkaline Phosphatase Lactate Dehydrogenase C-Reactive Protein Total Protein Albumin Globulin Albumin/Globulin Ratio Triglycerides Random Vancomycin Vancomycin Dose Vanco Last Dose Time MAITE Screen Neg <1:80 Preliminary micro results at discharge 09/20/18 16:48 Blood Culture - Preliminary Blood 09/20/18 16:38 Blood Culture - Preliminary Blood Medical - DS: A/P - Patient/Caregiver Discharge Instructions Activity: increase activity as tolerated Diet: Full Liquid (Honey thick/puree- addtl moisture for thinner applesauce/babyfood consist. CCD) Additional Instructions: Follow-up with physical therapy occupational therapy and speech therapy Prescriptions: HYDROcodone/APAP 5/325MG [Christine 5-325Mg] 1 tab PO Q4-6HP PRN #20 tab PRN Reason: Pain Level 3-6 Levofloxacin [Levaquin] 500 mg PO Q48H #2 tab metroNIDAZOLE [Flagyl] 500 mg PO TID #9 tab predniSONE [Prednisone] 40 mg PO DAILY #1 tab Other Amb Orders: OT Discharge Order Facility: [facility], Location: Conversion- Shelter Physical Therapy at Discharge - General Facility: [facility], Location: Conversion-Shelter ST Discharge Order Facility: [facility], Location: Conversion- Shelter - Follow up Plan Follow up with: Leta rAaujo MD [Primary Care Provider] - Nathan Tafoya MD [Physician] - Harrison Dahl [Referring] - Patrick Miller [Physician] - (may esophageal dilation) Disposition: Xfer SNF Prognosis: Serious Rehab Potential: Fair I certify that the patient requires SNF services: Yes Overall status at discharge: patient is progressing back to baseline Medical - DS: Qual - VTE Deep Vein Thrombosis/Pulmonary Embolism Present on Admission: No
--- NOTE | 2018-09-23 12:41 | Nephrology Progress Note ---
Subjective Patient information: Note initiated : 09/23/18 at 12:39 pm Service Date, if different from initiated Date: [] Patient: Covert,Cherelle gonzalez 62 y/o F admitted on 09/20/18 for altered LOC. Chief Complaint: [] Breathing is a lot better. Still having trouble swallowing. Hearing feels like plugged. Objective - Vital Signs Vital signs: Vital Signs Temp Pulse Pulse Resp BP BP Pulse Ox 09/23/18 08:14 100 H 20 09/23/18 08:00 97.3 F 105 H 19 167/95 93 09/23/18 00:00 23 H 146/92 93 09/22/18 22:45 87 20 09/22/18 20:00 98.3 F 18 157/85 90 09/22/18 19:49 85 22 90 09/22/18 19:30 85 22 93 09/22/18 16:43 93 H 19 88 L 09/22/18 16:01 99.1 F H 107 H 21 114/67 91 09/22/18 15:52 96 H 18 159/100 91 09/22/18 15:42 92 H 16 94 09/22/18 15:16 84 22 09/22/18 12:57 92 H 19 159/100 100 09/22/18 12:46 89 19 140/84 100 09/22/18 12:40 98.3 F 97 H 140/84 Intake and Output 09/22/18 09/23/18 09/23/18 21:59 05:59 13:59 Intake Total 670 100 410 Balance 670 100 410 Intake: IV 550 50 Zithromax 500 mg In Dextrose 5% 250 in Water 250 ml @ 250 mls/hr IV Q24H [facility] Rx#:[id number] Merrem 1 gm In Sodium Chloride 50 50 0.9% 50 ml @ 100 mls/hr IV Q24H [facility] Rx#:[id number] Vancomycin 1,000 mg In Sodium 250 Chloride 0.9% 250 ml @ 250 mls/ hr IV ONCE ONE Rx#:[id number] Oral 120 100 360 Other: Meal Lunch Breakfast Percent of Meal Consumed 25% 50% Stool Size Moderate Stool Color Brown Stool Consistency Loose # Bowel Movements 1 Weight 152 lb 8 oz Intake & Output: Intake & Output 09/22/18 09/23/18 09/23/18 21:59 05:59 13:59 Intake Total 670 100 410 Balance 670 100 410 Weight 152 lb 8 oz Intake: IV 550 50 Zithromax 500 mg In Dextrose 5% 250 in Water 250 ml @ 250 mls/hr IV Q24H [facility] Rx#:[id number] Merrem 1 gm In Sodium Chloride 50 50 0.9% 50 ml @ 100 mls/hr IV Q24H [facility] Rx#:[id number] Vancomycin 1,000 mg In Sodium 250 Chloride 0.9% 250 ml @ 250 mls/ hr IV ONCE ONE Rx#:[id number] Oral 120 100 360 Other: Meal Lunch Breakfast Percent of Meal Consumed 25% 50% Stool Size Moderate Stool Color Brown Stool Consistency Loose # Bowel Movements 1 - General Appearance General appearance: well-developed, well-nourished EENT: ATNC Neck: no JVD Respiratory: no kyphosis Cardiology: no murmurs Musculoskeletal: no deformities - Lab 09/23/18 03:42 09/23/18 03:42 Most recent lab results Calcium 8.3 mg/dl (8.6-10.4) L 09/23/18 03:42 Phosphorus 1.6 mg/dL (2.7-4.5) L 09/23/18 03:42 Magnesium 1.8 mg/dL (1.6-2.5) 09/23/18 03:42 Assessment and Plan (1) ESRD (end stage renal disease) on dialysis Status: Chronic Priority: Medium Comment: Had dialysis yesterday. Looks a lot better. She will need to discharged early or will have inpatient dialysis tomorrow.
--- NOTE | 2018-09-23 17:59 | XRay Report ---
CLINICAL INFORMATION: aspiration COMPARISON: None. FINDINGS: See attached sheet IMPRESSION: Small amount of descending aspiration due to incomplete epiglottis and vocal cord closure allowing tracheal penetration eliciting a mild cough reflex. This is only noted on thin quality variant. Gobles/honey viscosity, applesauce and solid foods were well tolerated. Interpreted and Authenticated by: Joe Centeno 09/23/18
[2018-09-23] MEDS: FAMOTIDINE/PF 20 MG/2 ML VIAL IV SCH (20:30)
[2018-09-23] MEDS ORDERED: amLODIPine 5 MG TABLET PO SCH (21:00)
[2018-09-24] MEDS: IPRATROPIUM/ALBUTEROL 3 ML AMPUL.NEB NEB SCH ×2 (03:07→06:50)
[2018-09-24] MEDS: 0.9 % SODIUM CHLORIDE 10 ML SYRINGE IV SCH (05:46)
[2018-09-24 06:12] LABS: Basophils # (Auto) 0 K/mcL (0.0-0.3); Basophils % (Auto) 0 % (0.0-2.0); Eosinophils # (Auto) 0 K/mcL (0.0-0.7); Eosinophils % (Auto) 0.3 % (0.0-7.0); Granulocytes % (Auto) 82.3 % (38.0-78.0); Lymphocytes # (Auto) 1.8 K/mcL (1.5-4.8); Lymphocytes % (Auto) 10.3 % (15.5-49.0); Mean Cell Volume 89.1 fL (80.0-100.0); Mean Corpuscular HGB Conc 30.8 g/dL (31.0-36.0); Monocytes # (Auto) 1.2 K/mcL (0.1-0.9); Monocytes % (Auto) 7.1 % (1.0-12.0); Platelet Count 584 K/mcL (140-440); RBC 3.41 M/mcL (4.00-5.20); Red Cell Distribution Width 20.5 % (11.5-14.5)
[2018-09-24 06:32] LABS: ALT/SGPT 17 U/l (0-40); Albumin 2.8 gm/dL (3.2-5.2); Alkaline Phosphatase 120 U/L (39-117); Bilirubin,Direct < 0.2 mg/dL (0.0-0.3); Blood Urea Nitrogen 26 mg/dl (8-23); Gamma Glutamyl Transpeptidase 30 U/L (5-36)
[2018-09-24] MEDS: INSULIN LISPRO 1 UNIT/0.01 ML UNIT SQ SCH (06:50)
[2018-09-24 07:54] LABS: Angiotensin Converting Enzyme 41 U/L (9-67); Cyclic Citrullinated Peptide < 16 UNITS
[2018-09-27 07:53] LABS: S. Viridis NEGATIVE (NEGATIVE); T. Candidus NEGATIVE (NEGATIVE); T. Vulgaris NEGATIVE (NEGATIVE)
--- NOTE | 2018-09-28 13:03 | Non-GYN Cytology Report ---
NON SATELLITE INSTALLER SPECIMEN NG DX CATEGORY Negative MICROSCOPIC DIAGNOSIS SPUTUM, EXPECTORATION: -- MIXED INFLAMMATORY CELLS WITH ACELLULAR DEBRIS AND ABUNDANT MUCIN. -- NO ATYPICAL OR MALIGNANT CELLS IDENTIFIED. (EBD:adj) MICROSCOPIC DESCRIPTION Cytologic preparations of the sputum specimen show mixed inflammation and acellular debris. No atypical or malignant cells are identified. EXTERNAL COMMENT ~2 mL yellow fluid: 1 thinprep, 1 H/E, 1 Diff Quik, 1 cell block Electronically Signed by: Viv Grossman M.D.
== END 2018-09-24 07:00 | DRG 871 ==
LOC: ED 15:17 → ICU 19:19
PROVIDERS: ADMIT Internal Medicine; ATTEND Internal Medicine

== ENCOUNTER 2018-11-05 11:41 | Observation (INO) ==
--- NOTE | 2018-11-05 12:11 | Emergency Department Note ---
SOB HPI - General Chief Complaint: Shortness of Breath/Dyspnea Stated Complaint: shortness of breath Time Seen by Provider: 11/05/18 11:45 Source: patient Mode of arrival: EMS Limitations: no limitations - History of Present Illness This pleasant 62-year-old female comes from dialysis this morning. She lives in [place]. She has end-stage renal disease presumably from her diabetes and hypertension. 2 L were removed at dialysis today but her dialysis was stopped, usually she has 3 L removed. It was stopped because of shortness of breath and she was sent here. She has been on 3 L of oxygen continuously at home and here. She was given a breathing treatment by the emergency medical system on her way here. She has some discomforts with taking a deep breath in her midline substernal area. She has been in the hospital in the past because of congestive heart failure and this feels like this. Her chest pains are not new, they happen every time when she has episodes like this. This once started this morning. The last episode was a couple days ago. Onset was around 10 AM, and has become moderately severe. There is no radiation. There is associated i ncreasing shortness of breath that as the day has progressed is worsened. No associated nausea or diaphoresis. REVIEW OF SYSTEMS: Denies anxiety. Has chronic depression. Frequent uncertainty in trying to answer questions. - Related Data Home Medications Medication Instructions Recorded Confirmed Citalopram Hydrobromide [Celexa] 40 mg PO DAILY 07/11/15 11/05/18 Furosemide [Lasix] 80 mg PO DAILY 07/11/15 11/05/18 Gabapentin [Neurontin] 300 mg PO DAILY 07/11/15 11/05/18 QUEtiapine FUMARATE [Seroquel] 100 mg PO DAILY 07/11/15 09/22/18 Vit B Cmplx 3/FA/Vit C/Biotin 1 each PO DAILY 07/11/15 09/20/18 [[facility] Rx Tablet] Ascorbic Acid [Vitamin C] 250 mg PO BID 07/18/18 11/05/18 Aspirin [Aspirin EC] 81 mg PO DAILY 07/18/18 11/05/18 Clopidogrel Bisulfate [Plavix] 75 mg PO DAILY 07/18/18 11/05/18 Isosorbide Mononitrate [Imdur] 30 mg PO DAILY 07/18/18 11/05/18 Polyvinyl Alcohol [Artificial 1 gtt OP BID 07/18/18 09/20/18 Tears] Umeclidinium Vilantarol 1 puff INH DAILY 07/18/18 09/20/18 Alendronate Sodium [Fosamax] 70 mg PO WEEKLY 09/20/18 09/22/18 Calcium Carbonate [Tums] 1,000 mg CHEWED DAILY 09/20/18 09/22/18 Folic Acid/Vit Bcomp,C [Super 1 mg PO DAILY 09/20/18 11/05/18 B-Complex Folic-Vit C Tb] Insulin Detemir [Levemir] 12 unit SQ DAILY 09/20/18 09/22/18 Vitamin D3 5,000 unit PO DAILY 09/20/18 11/05/18 amLODIPine [Norvasc] 10 mg PO HS 09/20/18 11/05/18 cloNIDine [Catapres-Tts 2] 1 patch TOPICAL WEEKLY 09/20/18 11/05/18 Albuterol Sulfate 2.5 mg INH Q2HP PRN 09/22/18 11/05/18 Budesonide 0.5 mg INH BID 09/22/18 11/05/18 Dextran 70/Hypromellose 1 drp OD BID 09/22/18 09/22/18 [Artificial Tears] Docusate Sodium [Dulcoease] 100 mg PO BID 09/22/18 11/05/18 Duoneb 3 inh INH Q6H 09/22/18 11/05/18 Lactulose 30 mg PO PRN PRN 09/22/18 11/05/18 Melatonin 3 mg PO PRN 09/22/18 Metoprolol Succinate 12.5 mg PO BID 09/22/18 11/05/18 Milk of Magnesia 30 ml PO PRN PRN 09/22/18 09/22/18 Nitroglycerin [Nitrostat] PRN 09/22/18 Ira 5-325 Tablet 1 tab PO Q6HP PRN 09/22/18 09/22/18 Pantoprazole 40 mg PO BID 09/22/18 11/05/18 Phoslo 1,334 mg PO QID 09/22/18 09/22/18 Renvela 1,600 mg PO QID 09/22/18 09/22/18 Tiotropium Maurepas [Spiriva] 09/22/18 Umeclidinium Maurepas [Incruse 1 puff INH 09/22/18 Ellipta] Acetaminophen [Tylenol] 2 tab PO Q4HP PRN 11/05/18 11/05/18 Alendronate Sodium 70 mg PO WEEKLY 11/05/18 11/05/18 Bisacodyl [Dulcolax] 10 mg RC DAILYP PRN 11/05/18 11/05/18 Glucagon HCl 1 mg IJ DAILYP PRN 11/05/18 11/05/18 Insulin Glargine, Human [Lantus] 12 unit SQ DAILY 11/05/18 11/05/18 Losartan [Cozaar] 100 mg PO DAILY 11/05/18 11/05/18 Nut.tx.impaired Renal Fxn,Soy 1 appful PO DAILY 11/05/18 11/05/18 [Nepro] Sucralfate [Carafate] 1 gm PO ACHS 11/05/18 11/05/18 predniSONE [Prednisone] 40 mg PO DAILY 11/05/18 11/05/18 Previous Rx's Medication Instructions Recorded HYDROcodone/APAP 5/325MG [Ira 1 tab PO Q4-6HP PRN #20 tab 09/23/18 5-325Mg] Levofloxacin [Levaquin] 500 mg PO Q48H #2 tab 09/23/18 metroNIDAZOLE [Flagyl] 500 mg PO TID #9 tab 09/23/18 predniSONE [Prednisone] 40 mg PO DAILY #1 tab 09/23/18 Allergies Allergy/AdvReac Type Severity Reaction Status Date / Time Sulfa (Sulfonamide Allergy Mild Rash Verified 11/05/18 11:47 Antibiotics) adhesive tape Allergy Verified 11/05/18 11:47 iodine Allergy Verified 11/05/18 11:47 sucralfate [From Carafate] Allergy Verified 11/05/18 11:47 Past Medical History - Past Medical History [facility] Narrative: Medical History (Last Updated 11/05/18 @ 12:11 by Bhargav Gan DO) Chronic anticoagulation (Chronic) CAD (coronary artery disease) (Chronic) History of cervical cancer (Chronic) Chest pain (Acute) Congestive heart failure (Acute) Shortness of Breath (Acute) Acute hypercapnic respiratory failure (Acute) ESRD (end stage renal disease) on dialysis (Chronic) Fluid overload (Acute) Anemia of chronic disease (Chronic) HTN (hypertension) (Chronic) Past Surgical History (Last Updated 11/05/18 @ 12:09 by Bhargav Gan DO) S/P coronary artery stent placement (Acute) S/P hysterectomy with oophorectomy (Acute) Medical history: Reports: arthritis, chronic narcotics, COPD, coronary artery disease, DM, GI bleed, hypertension, osteoporosis, renal disease (On dialysis) Psychiatric history: Reports: depression, PTSD - Social History smoking status: Current every day smoker Alcohol use: Reports: None Drug use: Reports: none Physical Exam Limitations: no limitations General appearance: alert, malaise, sleepy, other (very wheezy and wet cough frequently.) Head: atraumatic, normocephalic Eye: Present: EOMI Neck: Present: trachea midline. Absent: lymphadenopathy, thyromegaly Chest: Present: symmetric chest wall rise Respiratory: Present: rales/crackles, wheezes (Severe and polyphonic throughout all lung tse), accessory muscle use (Slight or minor), prolonged expiratory phase (Mild-moderate). Absent: respiratory distress, stridor Cardiovascular: Present: regular rate, normal rhythm. Absent: systolic murmur, diastolic murmur Abdominal: Present: soft. Absent: distention, tenderness, guarding, rebound, rigidity, organomegaly, mass Extremities: Present: pedal edema, pretibial edema Back: Absent: CVA tenderness (R), CVA tenderness (L), spinous process tenderness Neurological: Present: alert, oriented X3 Psychiatric: Present: flat affect, serious, poor eye contact Skin: Present: warm, dry Course Vital Signs Temperature 97.4 F 11/05/18 11:41 Pulse Rate 83 11/05/18 11:41 Respiratory Rate 20 11/05/18 11:41 Blood Pressure 171/104 11/05/18 11:41 Pulse Oximetry (%) 88 L 11/05/18 11:41 Temperature 97.4 F 11/05/18 11:41 Pulse Rate 89 11/05/18 15:47 Respiratory Rate 18 11/05/18 15:47 Blood Pressure 180/83 11/05/18 15:47 Pulse Oximetry (%) 93 11/05/18 15:47 Shortness of Breath/Dyspnea - MDM Narrative Medical decision making narrative: 11:47 AM Patient demonstrates significant wheezing and wet cough. Suspicious for CHF ve rsus COPD exacerbation. Labs demonstrated normal white count and creatinine of 2.4. Potassium 3.0. Troponin was 0.26. February was 0.33. BNP was just below 13,000; in 2015 was 16,500. Chest x-ray demonstrates improvement in her infiltrates that might have been from aspiration pneumonia previously, continued appearance of idiopathic pulmonary fibrosis. - Medical Records Medical records reviewed: Yes I reviewed the patient's medical records. - Lab Data Lab results reviewed: Yes I reviewed the patient's lab results. Result diagrams: 11/05/18 12:06 11/05/18 12:06 Lab Results 11/05/18 11/05/18 11/05/18 Range/Units 12: 12: 12:06 WBC 8.1 (4.5-11.0) K/mcL RBC 3.72 L (4.00-5.20) M/mcL Hgb 10.5 L (12.0-15.0) g/dL Hct 33.3 L (36.0-48.0) % MCV 89.5 (80.0-100.0) fL MCH 28.2 (26.0-34.0) pg MCHC 31.5 (31.0-36.0) g/dL RDW 22.8 H (11.5-14.5) % Plt Count 242 (140-440) K/mcL MPV 7.8 (7.4-10.4) fL Total Counted 100 Seg Neutrophils % 69 (38-78) % Band Neutrophils % Not Reportable Lymphocytes % 22 (15-49) % Monocytes % (Manual) 4 (1-12) % Eosinophils % (Manual) 3 (0-7) % Basophils % (Manual) 1 (0-2) % Reactive Lymphocytes 1 (0-2) % Platelet Estimate Normal (NORMAL) RBC Morphology Abnormal (NORMAL) Anisocytosis 2+ A (NONE SEEN) RBC Fragments Rare A (NONE SEEN) VBG Lactic Acid 0.9 (0.5-2.0) mmol/L Sodium 141 (133-145) mmol/L Potassium 3.0 L (3.3-5.1) mmol/L Chloride 99 (96-108) mmol/L Carbon Dioxide 26 (22-30) mmol/L Anion Gap 16.0 (8-16) BUN 16 (8-23) mg/dl Creatinine 2.4 H (0.6-1.1) mg/dl GFR Calculation 21 Glucose 144 H (70-105) mg/dL Calcium 8.5 L (8.6-10.4) mg/dl Total Bilirubin 0.3 (0.0-1.0) mg/dL AST 13 (0-37) U/l ALT 7 (0-40) U/l Alkaline Phosphatase 126 H (39-117) U/L Troponin T (0-0.03) ng/ml NT-Pro-B Natriuret Pep 20028.0 H (0-125) pg/ml Total Protein 6.4 (5.9-8.4) gm/dL Albumin 3.9 (3.2-5.2) gm/dL Globulin 2.5 (2.2-3.7) gm/dL Albumin/Globulin Ratio 1.6 (1.0-2.3) /07/14 Range/Units 12:06 WBC (4.5-11.0) K/mcL RBC (4.00-5.20) M/mcL Hgb (12.0-15.0) g/dL Hct (36.0-48.0) % MCV (80.0-100.0) fL MCH (26.0-34.0) pg MCHC (31.0-36.0) g/dL RDW (11.5-14.5) % Plt Count (140-440) K/mcL MPV (7.4-10.4) fL Total Counted Seg Neutrophils % (38-78) % Band Neutrophils % Lymphocytes % (15-49) % Monocytes % (Manual) (1-12) % Eosinophils % (Manual) (0-7) % Basophils % (Manual) (0-2) % Reactive Lymphocytes (0-2) % Platelet Estimate (NORMAL) RBC Morphology (NORMAL) Anisocytosis (NONE SEEN) RBC Fragments (NONE SEEN) VBG Lactic Acid (0.5-2.0) mmol/L Sodium (133-145) mmol/L Potassium (3.3-5.1) mmol/L Chloride (96-108) mmol/L Carbon Dioxide (22-30) mmol/L Anion Gap (8-16) BUN (8-23) mg/dl Creatinine (0.6-1.1) mg/dl GFR Calculation Glucose (70-105) mg/dL Calcium (8.6-10.4) mg/dl Total Bilirubin (0.0-1.0) mg/dL AST (0-37) U/l ALT (0-40) U/l Alkaline Phosphatase (39-117) U/L Troponin T 0.26 H* (0-0.03) ng/ml NT-Pro-B Natriuret Pep (0-125) pg/ml Total Protein (5.9-8.4) gm/dL Albumin (3.2-5.2) gm/dL Globulin (2.2-3.7) gm/dL Albumin/Globulin Ratio (1.0-2.3) - Radiology Data Radiology results reviewed: Yes I reviewed the patient's radiology results. - EKG Data EKG results narrative: No acute coronary syndrome findings. This ECG will be read by a simulation specialist. Disposition Pt seen by CONVEYOR WORKER/PA only: No Clinical Impression: COPD with acute exacerbation, Hypoxia Summary: Patient was given 3 nebulizers and seemed to have some improvements but remained still quite wheezy. She was given a dose of Solu-Medrol 62.5. Because of her oxygen is maintaining quite low and her PO2 of 56 where previously had been 66, it was felt that she was very fragile. This was in consideration in talking with Dr. Tafoya also. She has had rapid changes in her respiratory status in the past. She is at high risk of decompensating due to her dialysis status, history of CHF, severe COPD, etc. I discussed her case with Dr. Tafoya first; and then Dr. Mendez, who kindly accepts this patient's care. Initial orders written for transition. Patient is a DNR per patient's daughter. Because of COPD exacerbation, ceftriaxone 500 mg given. Disposition: Xfer As Outpt/Obs ([facility]) Referrals: Leta Araujo MD [Primary Care Provider] -
[2018-11-05] MEDS: 0.9 % SODIUM CHLORIDE 500 ML IV ONE ×2 (12:28→14:06)
--- NOTE | 2018-11-05 12:54 | XRay Report ---
HISTORY: Shortness of breath FINDINGS: There are prominent increased interstitial lung markings throughout both lung tse. There are few linear bands of scar or discoid atelectasis in the periphery of the left upper lobe the level of the hilum. The patchy alveolar infiltrates seen bilaterally on 10/08/18 have largely resolved. There is no apparent underlying mass and no lobar consolidation has developed. There is also no apparent adenopathy or pleural effusion. The heart size is normal. IMPRESSION: Emphysema and interstitial pulmonary fibrosis Improved infiltrates seen bilaterally on a prior x-ray Interpreted and Authenticated by: Pipo Chavira 11/05/18
[2018-11-05 13:05] LABS: Mean Cell Volume 89.5 fL (80.0-100.0); Mean Corpuscular HGB Conc 31.5 g/dL (31.0-36.0); Platelet Count 242 K/mcL (140-440); RBC 3.72 M/mcL (4.00-5.20); Red Cell Distribution Width 22.8 % (11.5-14.5)
[2018-11-05 13:25] LABS: Anisocytosis 2+ (NONE SEEN); Basophils % (Manual) 1 % (0-2); Eosinophils % (Manual) 3 % (0-7); Lymphocytes % 22 % (15-49); Monocytes % (Manual) 4 % (1-12); Platelet Estimate NORMAL (NORMAL); RBC Morphology ABNORMAL (NORMAL); Segmented Neutrophils % 69 % (38-78)
[2018-11-05 13:26] LABS: ALT/SGPT 7 U/l (0-40); Albumin 3.9 gm/dL (3.2-5.2); Albumin/Globulin Ratio 1.6 (1.0-2.3); Alkaline Phosphatase 126 U/L (39-117); Blood Urea Nitrogen 16 mg/dl (8-23)
[2018-11-05] MEDS ORDERED: IPRATROPIUM/ALBUTEROL 3 ML AMPUL.NEB NEB ONE ×2 (13:34→14:56)
[2018-11-05] MEDS ORDERED: methylPREDNISolone SOD SUCC 125 MG/2 ML VIAL IV ONE (13:34)
[2018-11-05] MEDS ORDERED: POTASSIUM CHLORIDE 20 MEQ TABLET PO ONE (13:56)
[2018-11-05] MEDS ORDERED: cefTRIAXone 1 GM VIAL IM ONE (15:49)
[2018-11-05] MEDS ORDERED: DEXTROSE 31 GM ORAL.SUSP PO PRN (16:10)
[2018-11-05] MEDS ORDERED: ONDANSETRON 4 MG/2 ML VIAL IV PRN (16:10)
[2018-11-05] MEDS ORDERED: ACETAMINOPHEN 1,000 MG/100 ML BOTTLE IV PRN (16:10)
[2018-11-05] MEDS ORDERED: DEXTROSE 50% 50 ML VIAL IV PRN (16:10)
[2018-11-05] MEDS ORDERED: ALBUTEROL SULFATE 2.5 MG/3 ML NEBULIZER INH PRN (16:12)
[2018-11-05] MEDS ORDERED: GLUCAGON,HUMAN RECOMBINANT 1 MG VIAL IV PRN (16:12)
--- NOTE | 2018-11-05 16:17 | Internal Med History&Physical ---
Medical - H&P: [facility] Patient information: Note initiated : 11/05/18 at 4:15 pm Service Date, if different from initiated Date: [] Patient: Cherelle Mcpherson 62 y/o F admitted on 11/05/18 for shortness of breath. Chief Complaint: [] Chief complaint: SOb History of present illness: Ms. Mcpherson is a 62 year old F who resides at [facility] who presents the ED with increasing sob while undergoing HD at [facility]'s office. Per patient she was fine until this morning. Symptoms onset was abrupt. No associated chest pain or palpitations and lightheadedness or dizziness. However developed abrupt shortness of breath during dialysis and was referred to the ER. She denies recent sick contacts, shaking chills fever, productive sputum. She denies headache photophobia, chills. Patient further denies changes in medications. She denies associated chest pain, diaphoresis or palpitation. Initial workup in the ER was consistent with COPD exacerbation. Patient did not experience any relief in symptoms despite 3 breathing treatments and steroids. Subsequently hospitalist service was consulted. Notably she has had multiple hospitalizations over the past year for pneumonia and heart failure. Troponins were elevated at 0.25 but lower than previous hospitalization At the time evaluation patient is alert and oriented. She feels slightly better. She was able to answer most of the questions as above. She denies active smoking. Review of systems A 10 point review of system was performed and is negative except was discussed above Medical - H&P: PMH Medical history: 1. End-stage renal disease on hemodialysis. She dialyzes on Mondays, Wednesdays, Fridays. 2. History of chronic chest pain for which she had heart catheterization before. 3. COPD. 4. Chronic congestive heart failure. 5. Anemia of chronic kidney disease. 6. Hypertension. 7. Esophageal stenosis on endoscopy Surgical history: Left fibula fracture repair, cholecystectomy, total abdominal hysterectomy with bilateral salpingo-oophorectomy, tonsillectomy, appendectomy, hemorrhoidectomy, cataracts, esophageal dilatation. Pertinent family history: father TB Social history: resides at [place] Have you smoked in the last 12 months: Yes Time spent discussing smoking cessation with patient: 3 to 10 minutes Medical - H&P: Meds Home Medications Medication Instructions Recorded Confirmed Type Citalopram Hydrobromide [Celexa] 20 mg PO DAILY 12/16/15 04/12/19 History Furosemide [Lasix] 80 mg PO DAILY 07/11/15 11/05/18 History Gabapentin [Neurontin] 300 mg PO DAILY 07/11/15 11/05/18 History QUEtiapine FUMARATE [Seroquel] 100 mg PO DAILY 07/11/15 11/05/18 History Ascorbic Acid [Vitamin C] 250 mg PO BID 07/18/18 11/05/18 History Aspirin [Aspirin EC] 81 mg PO DAILY 07/18/18 11/05/18 History Clopidogrel Bisulfate [Plavix] 75 mg PO DAILY 07/18/18 11/05/18 History Isosorbide Mononitrate [Imdur] 30 mg PO DAILY 07/18/18 11/05/18 History Alendronate Sodium [Fosamax] 70 mg PO WEEKLY 09/20/18 11/05/18 History Folic Acid/Vit Bcomp,C [Super 1 mg PO DAILY 09/20/18 11/05/18 History B-Complex Folic-Vit C Tb] Vitamin D3 5,000 unit PO DAILY 09/20/18 11/05/18 History amLODIPine [Norvasc] 10 mg PO HS 09/20/18 11/05/18 History cloNIDine [Catapres-Tts 2] 1 patch TOPICAL WEEKLY 09/20/18 11/05/18 History Albuterol Sulfate 2.5 mg INH Q2HP PRN 09/22/18 11/05/18 History Budesonide 0.5 mg INH BID 09/22/18 11/05/18 History Docusate Sodium [Dulcoease] 100 mg PO BID 09/22/18 11/05/18 History Lactulose 30 ml PO PRN PRN 09/22/18 11/05/18 History Melatonin 3 mg PO HS PRN 09/22/18 11/05/18 History Pantoprazole 40 mg PO BID 09/22/18 11/05/18 History Acetaminophen [Tylenol] 1 - 2 tab PO Q4HP PRN 11/05/18 11/05/18 History Benzonatate [Tessalon] 100 mg PO TIDP PRN 11/05/18 11/05/18 History Bisacodyl [Dulcolax] 10 mg PO DAILYP PRN 11/05/18 11/05/18 History Bisacodyl [Dulcolax] 10 mg VT DAILYP PRN 11/05/18 11/05/18 History Dextran 70/Hypromellose 1 each OP BIDP PRN 11/05/18 11/05/18 History [Artificial Tears] Glucagon HCl 1 mg IJ DAILYP PRN 11/05/18 11/05/18 History HYDROcodone/APAP 5/325MG [Purmela 1 tab PO Q6HP PRN 11/05/18 11/05/18 History 5-325Mg] Insulin Glargine, Human [Lantus] 12 unit SQ DAILY 11/05/18 11/05/18 History Insulin Lispro [Admelog] 100 unit SQ ACHS 11/05/18 11/05/18 History Ipratropium/Albuterol Sulfate 3 ml IH QID 11/05/18 11/05/18 History [Iprat-Albut 0.5-3(2.5) mg/3 ml] Metoprolol Tartrate [Lopressor] 25 mg PO BID 11/05/18 11/05/18 History Na Phos,M-B/Na Phos,Di-Ba [Fleets 1 dose VT DAILYP PRN 11/05/18 11/05/18 History Adult] Nitroglycerin [Nitrostat] 0.4 mg SL Q5M PRN 11/05/18 11/05/18 History Nut.tx.impaired Renal Fxn,Soy 237 ml PO DAILY 11/05/18 11/05/18 History [Nepro] Allergies Allergy/AdvReac Type Severity Reaction Status Date / Time adhesive tape Allergy Mild Rash Verified 11/05/18 17:52 iodine Allergy Mild Rash Verified 11/05/18 17:52 Sulfa (Sulfonamide Allergy Mild Rash Verified 11/05/18 17:48 Antibiotics) sucralfate [From Carafate] Allergy Unknown Unknown Verified 11/05/18 17:52 Medical - H&P: Exam - Constitutional Vitals: Temp Pulse Resp BP Pulse Ox 97.4 F 89 18 180/83 93 11/05/18 16:07 11/05/18 16:07 11/05/18 16:07 11/05/18 16:07 11/05/18 16:07 General appearance: moderate distress, morbidly obese Exam: Alert and oriented Eye movements symmetrical Oral cavity dry No ear nose discharge Neck no lymphadenopathy Left anterior subclavian dialysis catheter Diminished breath sounds bases with late expiratory rhonchi S1 and S2 irregular Abdomen soft nontender Lower extremity no cyanosis clubbing or joint swelling Skin no suspicious lesion Psych alert cooperative Neuro nonfocal Medical - H&P: Reslt - Labs CBC & Chem 7: 11/06/18 04:35 11/06/18 04:35 Labs: Short CBC 11/05/18 Range/Units 12:06 WBC 8.1 (4.5-11.0) K/mcL Hgb 10.5 L (12.0-15.0) g/dL Hct 33.3 L (36.0-48.0) % Plt Count 242 (140-440) K/mcL BMP 11/05/18 12:06 Sodium 141 Potassium 3.0 L Chloride 99 Carbon Dioxide 26 BUN 16 Creatinine 2.4 H Glucose 144 H Calcium 8.5 L Cardiac Enzymes 11/05/18 Range/Units 12:06 Troponin T 0.26 H* (0-0.03) ng/ml Liver Function 11/05/18 Range/Units 12:06 Total Bilirubin 0.3 (0.0-1.0) mg/dL AST 13 (0-37) U/l ALT 7 (0-40) U/l Alkaline Phosphatase 126 H (39-117) U/L Albumin 3.9 (3.2-5.2) gm/dL Medical - H&P: A/P (1) COPD with acute exacerbation Current visit: Yes Status: Acute * COPD exacerbation-continue management of steroid/bronchodilators/pulmonary toilet. Patient is on 3 L oxygen at home * Dyspnea secondary above continue supplemental oxygen * History of CAD continue aspirin/Plavix/nitroglycerin/metoprolol * Hypertension continue metoprolol/clonidine/amlodipine * DM type II continue basal prandial insulin * Neuropathy on gabapentin * GERD on PPI * ESRD on hemodialysis managed by Dr. Tafoya nephrology * Chronic anemia S secondary ESRD * History of CVA on aspirin and Plavix * DNR * Prophylaxis heparin Plan * Observation admit * IV steroids and bronchodilators * Pre-existing medical condition management on home meds * PT OT/nutritional support
[2018-11-05] MEDS ORDERED: LACTULOSE 20 GM/30 ML ORAL.SOL PO PRN (17:00)
[2018-11-05] MEDS ORDERED: cefTRIAXone 500 MG in DEXTROSE 5% IN WATER 50 ML IV ONE (17:18)
[2018-11-05] MEDS: SUCRALFATE 1 GM TABLET PO SCH ×2 (17:30→22:30)
[2018-11-05] MEDS: PANTOPRAZOLE 40 MG TABLET PO SCH (17:30)
[2018-11-05] MEDS: INSULIN LISPRO 1 UNIT/0.01 ML UNIT SQ SCH ×2 (17:30→19:57)
[2018-11-05] MEDS: cefTRIAXone 1 GM VIAL IV SCH (18:30)
[2018-11-05] MEDS: IPRATROPIUM/ALBUTEROL 3 ML AMPUL.NEB NEB SCH ×2 (19:45→23:14)
[2018-11-05] MEDS: BUDESONIDE 0.5 MG/2 ML AMPUL.NEB NEB SCH (19:45)
[2018-11-05] MEDS: HEPARIN 5,000 UNIT/ML VIAL SQ SCH (20:35)
[2018-11-05] MEDS: DOCUSATE SODIUM 100 MG CAPSULE PO SCH (20:36)
[2018-11-05] MEDS: ACETAMINOPHEN 325 MG TABLET PO PRN (20:37)
[2018-11-05] MEDS: SENNOSIDES/DOCUSATE SODIUM 1 TAB TABLET PO SCH (20:39)
[2018-11-05] MEDS: ASCORBIC ACID 500 MG TABLET PO SCH (20:39)
[2018-11-05] MEDS ORDERED: METOPROLOL SUCCINATE 25 MG TAB.XL.24H PO SCH (21:00)
[2018-11-05] MEDS ORDERED: DOCUSATE SODIUM 100 MG CAPSULE PO SCH (21:00)
[2018-11-05] MEDS: METOPROLOL TARTRATE 25 MG TABLET PO SCH (22:46)
[2018-11-05] MEDS: methylPREDNISolone SOD SUCC 125 MG/2 ML VIAL IV SCH (22:47)
[2018-11-05] MEDS: amLODIPine 10 MG TABLET PO SCH (22:47)
[2018-11-05] MEDS: 0.9 % SODIUM CHLORIDE 10 ML SYRINGE IV SCH (22:55)
[2018-11-06] MEDS: IPRATROPIUM/ALBUTEROL 3 ML AMPUL.NEB NEB SCH ×6 (04:20→22:52)
[2018-11-06 05:56] LABS: Mean Corpuscular HGB Conc 31.9 g/dL (31.0-36.0); Platelet Count 208 K/mcL (140-440); RBC 3.46 M/mcL (4.00-5.20); Red Cell Distribution Width 21.4 % (11.5-14.5)
[2018-11-06 06:10] LABS: ALT/SGPT 8 U/l (0-40); Albumin 3.5 gm/dL (3.2-5.2); Albumin/Globulin Ratio 1.3 (1.0-2.3); Alkaline Phosphatase 129 U/L (39-117); Bilirubin,Direct < 0.2 mg/dL (0.0-0.3); Blood Urea Nitrogen 36 mg/dl (8-23); Gamma Glutamyl Transpeptidase 36 U/L (5-36); Uric Acid 5.1 mg/dL (2.5-8.0)
[2018-11-06 06:37] LABS: Anisocytosis 2+ (NONE SEEN); Band Neutrophils % 1 % (0-10); Lymphocytes % 5 % (15-49); Monocytes % (Manual) 1 % (1-12); Platelet Estimate NORMAL (NORMAL); RBC Morphology ABNORM (NORMAL); Segmented Neutrophils % 93 % (38-78)
[2018-11-06] MEDS: BUDESONIDE 0.5 MG/2 ML AMPUL.NEB NEB SCH ×2 (07:07→19:07)
[2018-11-06] MEDS: SUCRALFATE 1 GM TABLET PO SCH ×4 (08:35→20:35)
[2018-11-06] MEDS: INSULIN LISPRO 1 UNIT/0.01 ML UNIT SQ SCH ×4 (08:35→20:15)
[2018-11-06] MEDS: HEPARIN 5,000 UNIT/ML VIAL SQ SCH ×2 (08:36→20:16)
[2018-11-06] MEDS: INSULIN GLARGINE, HUMAN 1 UNIT/0.01 ML SQ SCH (08:36)
[2018-11-06] MEDS: methylPREDNISolone SOD SUCC 125 MG/2 ML VIAL IV SCH (08:37)
[2018-11-06] MEDS: cefTRIAXone 1 GM VIAL IV SCH (08:38)
[2018-11-06] MEDS: ISOSORBIDE MONONITRATE 30 MG TAB.XL.24H PO SCH (08:45)
[2018-11-06] MEDS: CITALOPRAM 20 MG TABLET PO SCH (08:46)
[2018-11-06] MEDS: METOPROLOL TARTRATE 25 MG TABLET PO SCH ×2 (08:46→20:18)
[2018-11-06] MEDS: CLOPIDOGREL 75 MG TABLET PO SCH (08:46)
[2018-11-06] MEDS: LOSARTAN 50 MG TABLET PO SCH (08:46)
[2018-11-06] MEDS: ASPIRIN 81 MG TAB.CHEW PO SCH (08:46)
[2018-11-06] MEDS: ASCORBIC ACID 500 MG TABLET PO SCH ×2 (08:46→20:18)
[2018-11-06] MEDS: VITAMIN B COMPLEX 1 CAPSULE PO SCH (08:46)
[2018-11-06] MEDS: DOCUSATE SODIUM 100 MG CAPSULE PO SCH ×2 (08:47→20:17)
[2018-11-06] MEDS: VITAMIN D3 5,000 UNIT CAPSULE PO SCH (08:47)
[2018-11-06] MEDS: GABAPENTIN 300 MG CAPSULE PO SCH (08:47)
[2018-11-06] MEDS: PANTOPRAZOLE 40 MG TABLET PO SCH ×2 (08:47→17:30)
[2018-11-06] MEDS: FUROSEMIDE 80 MG TABLET PO SCH (08:47)
[2018-11-06] MEDS: 0.9 % SODIUM CHLORIDE 10 ML SYRINGE IV SCH ×3 (08:48→22:00)
[2018-11-06] MEDS ORDERED: NUT TX IMPAIRED RENAL FXN SOY PO SCH (09:00)
--- NOTE | 2018-11-06 09:23 | Internal Med Progress Note ---
Medical - PN: Subj Patient information: Note initiated : 11/06/18 at 9:20 am Service Date, if different from initiated Date: [] Patient: Cherelle Mcpherson 62 y/o F admitted on 11/05/18 for shortness of breath. Chief Complaint: [] Interval history: Ms. Mcpherson is a 62 year old F who resides at [facility] who presents the ED with increasing sob while undergoing HD at [place] [facility]'s office. Per patient she was fine until this morning. Symptoms onset was abrupt. No associated chest pain or palpitations and lightheadedness or dizziness. However developed abrupt shortness of breath during dialysis and was referred to the ER. She denies recent sick contacts, shaking chills fever, productive sputum. She denies headache photophobia, chills. Patient further denies changes in medications. She denies associated chest pain, diaphoresis or palpitation. Initial workup in the ER was consistent with COPD exacerbation. Patient did not experience any relief in symptoms despite 3 breathing treatments and steroids. Subsequently hospitalist service was consulted. Notably she has had multiple hospitalizations over the past year for pneumonia and heart failure. Troponins were elevated at 0.25 but lower than previous hospitalization At the time evaluation patient is alert and oriented. She feels slightly better. She was able to answer most of the questions as above. She denies active smoking. 11/06-patient doing a lot better. Able to talk in full sentences. Shortness of breath improved. No overnight fever chills or concerns per staff. Transition to oral steroids today. Anticipate discharge in 24 hours back to [facility]. - Constitutional Vitals: Vital Signs Temp Pulse Resp BP Pulse Ox 98.2 F 82 20 120/50 90 11/06/18 07:55 11/06/18 07:23 11/06/18 07:55 11/06/18 07:55 11/06/18 07:55 Period Temp Pulse Resp BP Sys/Talley Pulse Ox Last 24 Hr 97.3 F-98.3 F 79-89 16-24 120-209/50-145 87-99 Intake and Output 11/05/18 11/06/18 11/06/18 21:59 05:59 13:59 Intake Total 240 Output Total 100 Balance -100 240 Weight 157 lb 8 oz Intake & Output: Intake & Output 04/07/1411/06/18 11/06/18 21:59 05:59 13:59 Intake Total 240 Output Total 100 Balance -100 240 Weight 157 lb 8 oz Intake: Oral 240 Output: Emesis 100 Other: Meal Dinner Breakfast Percent of Meal Consumed 100% 100% Feeding Ability Independent Independent General appearance: cooperative, no acute distress Exam: Alert oriented Nonlabored breathing Anxiety On 3 L oxygen Medical - PN: Obj Da - Labs CBC & Chem 7: 11/06/18 04:35 11/06/18 04:35 Labs: Abnormal Lab Results 11/06/18 11/06/18 11/05/18 04:35 04:35 12:06 RBC 3.46 L Hgb 9.9 L Hct 31.1 L RDW 21.4 H Seg Neutrophils % 93 H Lymphocytes % 5 L RBC Morphology Abnorm A Anisocytosis 2+ A RBC Fragments Occ A Potassium Anion Gap 18.0 H BUN 36 H Creatinine 3.8 H Glucose 288 H Calcium 8.0 L Alkaline Phosphatase 129 H Troponin T 0.26 H* NT-Pro-B Natriuret Pep 11/05/18 11/05/18 12:06 12:06 RBC 3.72 L Hgb 10.5 L Hct 33.3 L RDW 22.8 H Seg Neutrophils % Lymphocytes % RBC Morphology Anisocytosis 2+ A RBC Fragments Rare A Potassium 3.0 L Anion Gap BUN Creatinine 2.4 H Glucose 144 H Calcium 8.5 L Alkaline Phosphatase 126 H Troponin T NT-Pro-B Natriuret Pep 61183.0 H Meds: Medications Acetaminophen (Tylenol) 650 mg PO Q4-6HP PRN PRN Reason: PAIN/FEVER > 101 Last Admin: 11/05/18 20:37 Dose: 650 mg Documented by: Albuterol Sulfate (Ventolin) 2.5 mg INH Q2HP PRN PRN Reason: Shortness Of Breath Albuterol/Ipratropium (Duoneb) 3 ml NEB Q4HRT [facility] Last Admin: 11/06/18 07:07 Dose: 3 ml Documented by: Alendronate Sodium (Fosamax) 70 mg PO Th@0730 [facility] Amlodipine Besylate (Norvasc) 10 mg PO HS [facility] Last Admin: 11/05/18 22:47 Dose: 10 mg Documented by: Ascorbic Acid (Vitamin C) 250 mg PO BID [facility] Last Admin: 11/06/18 08:46 Dose: 250 mg Documented by: Aspirin (Aspirin) 81 mg PO DAILY [facility] Last Admin: 11/06/18 08:46 Dose: 81 mg Documented by: Budesonide (Pulmicort) 0.5 mg NEB Q12 [facility] Last Admin: 11/06/18 07:07 Dose: 0.5 mg Documented by: Ceftriaxone Sodium (Rocephin) 0.5 gm IV Q24H [facility] Last Admin: 11/06/18 08:38 Dose: 0.5 gm Documented by: Citalopram Hydrobromide (Celexa) 20 mg PO DAILY [facility] Last Admin: 11/06/18 08:46 Dose: 20 mg Documented by: Clopidogrel Bisulfate (Plavix) 75 mg PO DAILY [facility] Last Admin: 11/06/18 08:46 Dose: 75 mg Documented by: Dextrose (Dextrose 50%) 0 ml IV UD PRN PRN Reason: Hypoglycemia Diagnostic Test (Pha) (Accu-Chek) 1 each FS ACHS [facility] Last Admin: 11/06/18 08:35 Dose: 1 each Documented by: Docusate Sodium (Colace) 100 mg PO BID [facility] Last Admin: 11/06/18 08:47 Dose: 100 mg Documented by: Furosemide (Lasix) 80 mg PO DAILY [facility] Last Admin: 11/06/18 08:47 Dose: 80 mg Documented by: Gabapentin (Neurontin) 300 mg PO DAILY [facility] Last Admin: 11/06/18 08:47 Dose: 300 mg Documented by: Glucagon (Glucagen) 1 mg IV DAILYP PRN PRN Reason: Hypoglycemia Glucose (Insta-Glucose) 15 gm PO PRN PRN PRN Reason: Hypoglycemia Heparin Sodium (Porcine) (Heparin) 5,000 unit SQ Q12 [facility] Last Admin: 11/06/18 08:36 Dose: 5,000 unit Documented by: Acetaminophen (Ofirmev) 1,000 mg in 100 mls @ 200 mls/hr IV Q6HP PRN PRN Reason: PAIN/FEVER > 101 Insulin Glargine (Lantus) 12 unit SQ DAILY [facility] Last Admin: 11/06/18 08:36 Dose: 12 units Documented by: Insulin Human Lispro (Humalog) 0 unit SQ ACHS [facility]; Protocol Last Admin: 11/06/18 08:35 Dose: 4 unit Documented by: Isosorbide Mononitrate (Imdur) 30 mg PO DAILY [facility] Last Admin: 11/06/18 08:45 Dose: 30 mg Documented by: Lactulose (Cephulac) 30 gm PO DAILYP PRN PRN Reason: CONSTIPATION Losartan Potassium (Cozaar) 100 mg PO DAILY [facility] Last Admin: 11/06/18 08:46 Dose: 100 mg Documented by: Methylprednisolone Sodium Succinate (Solu-Medrol) 60 mg IV Q12 [facility] Last Admin: 11/06/18 08:37 Dose: 60 mg Documented by: Metoprolol Tartrate (Lopressor) 25 mg PO BID [facility] Last Admin: 11/06/18 08:46 Dose: 25 mg Documented by: Ondansetron HCl (Zofran) 4 mg IV Q4-6HP PRN PRN Reason: Nausea And Vomiting Last Admin: 11/05/18 20:35 Dose: 4 mg Documented by: Pantoprazole Sodium (Protonix) 40 mg PO BIDAC [facility] Last Admin: 11/06/18 08:47 Dose: 40 mg Documented by: Senna/Docusate Sodium (Senna Plus Tablet) 1 tab PO HS [facility] Last Admin: 11/05/18 20:39 Dose: 1 tab Documented by: Sodium Chloride (Saline Flush) 10 ml IV Q8 [facility] Last Admin: 11/06/18 08:48 Dose: 10 ml Documented by: Sucralfate (Carafate) 1 gm PO ACHS [facility] Last Admin: 11/06/18 08:35 Dose: Not Given Documented by: Vitamin B Complex (Vitamin B Complex) 1 cap PO DAILY [facility] Last Admin: 11/06/18 08:46 Dose: 1 cap Documented by: Vitamin D (Vitamin D3) 5,000 unit PO DAILY [facility] Last Admin: 11/06/18 08:47 Dose: 5,000 unit Documented by: Medical - PN: A/P - Time Spent With Patient Total time spent is greater than 50% in coordination of care (as documented) at patient's floor/unit and/or counseling patient: 25 - 35 minutes (1) COPD with acute exacerbation Status: Acute Assessment and plan: * Acute exacerbation of COPD-continue management of steroid/bronchodilators, transition to oral steroids. Continue supplemental oxygen * Dyspnea secondary above- clinically improved. * Hypertension continue metoprolol/clonidine/amlodipine/losartan * DM type II continue basal prandial insulin. * Neuropathy on gabapentin * GERD on PPI * ESRD on hemodialysis Thursday managed by Dr. Tafoya nephrology * Chronic anemia S secondary ESRD * History of CVA on aspirin and Plavix * DNR * Prophylaxis heparin Plan * Transition to oral steroid * Supplemental oxygen/bronchodilators/RT treatments * Pre-existing medical condition management on home meds * PT OT/nutritional support * Possible discharge to [facility] in 24 hours Current Visit: Yes Medical - PN: Qual - VTE Deep Vein Thrombosis/Pulmonary Embolism Present on Admission: No
--- NOTE | 2018-11-06 12:51 | Internal Med Progress Note ---
Medical - PN: Subj Patient information: Note initiated : 11/06/18 at 12:50 pm Service Date, if different from initiated Date: [] Patient: Cherelle Mcpherson 62 y/o F admitted on 11/05/18 for shortness of breath. Chief Complaint: [] Interval history: Ms. Mcpherson is a 62 year old F who resides at [facility] who presents the ED with increasing sob while undergoing HD at [place] [facility] office. Per patient she was fine until this morning. Symptoms onset was abrupt. No associated chest pain or palpitations and lightheadedness or dizziness. However developed abrupt shortness of breath during dialysis and was referred to the ER. She denies recent sick contacts, shaking chills fever, productive sputum. She denies headache photophobia, chills. Patient further denies changes in medications. She denies associated chest pain, diaphoresis or palpitation. Initial workup in the ER was consistent with COPD exacerbation. Patient did not experience any relief in symptoms despite 3 breathing treatments and steroids. Subsequently hospitalist service was consulted. Notably she has had multiple hospitalizations over the past year for pneumonia and heart failure. Troponins were elevated at 0.25 but lower than previous hospitalization At the time evaluation patient is alert and oriented. She feels slightly better. She was able to answer most of the questions as above. She denies active smoking. 11/06-patient doing a lot better. Able to talk in full sentences. Shortness of breath improved. No overnight fever chills or concerns per staff. Transition to oral steroids today. Anticipate discharge in 24 hours back to [facility]. 11/07 - Constitutional Vitals: Vital Signs Temp Pulse Resp BP Pulse Ox 98.2 F 77 16 120/50 90 11/06/18 07:55 11/06/18 11:28 11/06/18 11:28 11/06/18 07:55 11/06/18 07:55 Period Temp Pulse Resp BP Sys/Talley Pulse Ox Last 24 Hr 97.3 F-98.3 F 77-89 16-24 120-209/50-108 87-99 Intake and Output 11/05/18 11/06/18 11/06/18 21:59 05:59 13:59 Intake Total 240 Output Total 100 Balance -100 240 Weight 71.441 kg Intake & Output: Intake & Output 11/05/18 11/06/18 11/06/18 21:59 05:59 13:59 Intake Total 240 Output Total 100 Balance -100 240 Weight 71.441 kg Intake: Oral 240 Output: Emesis 100 Other: Meal Dinner Breakfast Percent of Meal Consumed 100% 100% Feeding Ability Independent Independent Exam: General: Alert, Awake, No acute Distress Eyes/N/T: EOMI, Head/Neck: neck supple, CV: RRR, No murmurs, Pulm: Abd: soft, nontender, +BS x4 Ext: no clubbing/cyanosis/ Neuro: Alert, no focal deficits, moves all extremities, Skin: warm/dry Medical - PN: Obj Da - Labs CBC & Chem 7: 11/06/18 04:35 11/06/18 04:35 Labs: Abnormal Lab Results 11/06/18 11/06/18 11/05/18 04:35 04:35 12:06 RBC 3.46 L Hgb 9.9 L Hct 31.1 L RDW 21.4 H Seg Neutrophils % 93 H Lymphocytes % 5 L RBC Morphology Abnorm A Anisocytosis 2+ A RBC Fragments Occ A Potassium Anion Gap 18.0 H BUN 36 H Creatinine 3.8 H Glucose 288 H Calcium 8.0 L Alkaline Phosphatase 129 H Troponin T 0.26 H* NT-Pro-B Natriuret Pep 11/05/18 11/05/18 12:06 12:06 RBC 3.72 L Hgb 10.5 L Hct 33.3 L RDW 22.8 H Seg Neutrophils % Lymphocytes % RBC Morphology Anisocytosis 2+ A RBC Fragments Rare A Potassium 3.0 L Anion Gap BUN Creatinine 2.4 H Glucose 144 H Calcium 8.5 L Alkaline Phosphatase 126 H Troponin T NT-Pro-B Natriuret Pep 40624.0 H Meds: Medications Acetaminophen (Tylenol) 650 mg PO Q4-6HP PRN PRN Reason: PAIN/FEVER > 101 Last Admin: 11/05/18 20:37 Dose: 650 mg Documented by: Albuterol Sulfate (Ventolin) 2.5 mg INH Q2HP PRN PRN Reason: Shortness Of Breath Albuterol/Ipratropium (Duoneb) 3 ml NEB Q4HRT [facility] Last Admin: 11/06/18 11:16 Dose: 3 ml Documented by: Alendronate Sodium (Fosamax) 70 mg PO Th@0730 [facility] Amlodipine Besylate (Norvasc) 10 mg PO HS [facility] Last Admin: 11/05/18 22:47 Dose: 10 mg Documented by: Ascorbic Acid (Vitamin C) 250 mg PO BID [facility] Last Admin: 11/06/18 08:46 Dose: 250 mg Documented by: Aspirin (Aspirin) 81 mg PO DAILY [facility] Last Admin: 11/06/18 08:46 Dose: 81 mg Documented by: Budesonide (Pulmicort) 0.5 mg NEB Q12 [facility] Last Admin: 11/06/18 07:07 Dose: 0.5 mg Documented by: Ceftriaxone Sodium (Rocephin) 0.5 gm IV Q24H [facility] Last Admin: 11/06/18 08:38 Dose: 0.5 gm Documented by: Citalopram Hydrobromide (Celexa) 20 mg PO DAILY [facility] Last Admin: 11/06/18 08:46 Dose: 20 mg Documented by: Clopidogrel Bisulfate (Plavix) 75 mg PO DAILY [facility] Last Admin: 11/06/18 08:46 Dose: 75 mg Documented by: Dextrose (Dextrose 50%) 0 ml IV UD PRN PRN Reason: Hypoglycemia Diagnostic Test (Pha) (Accu-Chek) 1 each FS ACHS [facility] Last Admin: 11/06/18 11:42 Dose: 1 each Documented by: Docusate Sodium (Colace) 100 mg PO BID [facility] Last Admin: 11/06/18 08:47 Dose: 100 mg Documented by: Furosemide (Lasix) 80 mg PO DAILY [facility] Last Admin: 11/06/18 08:47 Dose: 80 mg Documented by: Gabapentin (Neurontin) 300 mg PO DAILY [facility] Last Admin: 11/06/18 08:47 Dose: 300 mg Documented by: Glucagon (Glucagen) 1 mg IV DAILYP PRN PRN Reason: Hypoglycemia Glucose (Insta-Glucose) 15 gm PO PRN PRN PRN Reason: Hypoglycemia Heparin Sodium (Porcine) (Heparin) 5,000 unit SQ Q12 [facility] Last Admin: 11/06/18 08:36 Dose: 5,000 unit Documented by: Acetaminophen (Ofirmev) 1,000 mg in 100 mls @ 200 mls/hr IV Q6HP PRN PRN Reason: PAIN/FEVER > 101 Insulin Glargine (Lantus) 12 unit SQ DAILY [facility] Last Admin: 11/06/18 08:36 Dose: 12 units Documented by: Insulin Human Lispro (Humalog) 0 unit SQ [facility]; Protocol Last Admin: 11/06/18 11:51 Dose: 3 unit Documented by: Isosorbide Mononitrate (Imdur) 30 mg PO DAILY [facility] Last Admin: 11/06/18 08:45 Dose: 30 mg Documented by: Lactulose (Cephulac) 30 gm PO DAILYP PRN PRN Reason: CONSTIPATION Losartan Potassium (Cozaar) 100 mg PO DAILY [facility] Last Admin: 11/06/18 08:46 Dose: 100 mg Documented by: Metoprolol Tartrate (Lopressor) 25 mg PO BID [facility] Last Admin: 11/06/18 08:46 Dose: 25 mg Documented by: Ondansetron HCl (Zofran) 4 mg IV Q4-6HP PRN PRN Reason: Nausea And Vomiting Last Admin: 11/05/18 20:35 Dose: 4 mg Documented by: Pantoprazole Sodium (Protonix) 40 mg PO BIDAC [facility] Last Admin: 11/06/18 08:47 Dose: 40 mg Documented by: Prednisone (Prednisone) 40 mg PO [facility] Senna/Docusate Sodium (Senna Plus Tablet) 1 tab PO HS [facility] Last Admin: 11/05/18 20:39 Dose: 1 tab Documented by: Sodium Chloride (Saline Flush) 10 ml IV Q8 [facility] Last Admin: 11/06/18 08:48 Dose: 10 ml Documented by: Sucralfate (Carafate) 1 gm PO [facility] Last Admin: 11/06/18 11:43 Dose: Not Given Documented by: Vitamin B Complex (Vitamin B Complex) 1 cap PO DAILY [facility] Last Admin: 11/06/18 08:46 Dose: 1 cap Documented by: Vitamin D (Vitamin D3) 5,000 unit PO DAILY [facility] Last Admin: 11/06/18 08:47 Dose: 5,000 unit Documented by: Medical - PN: A/P - Time Spent With Patient Total time spent is greater than 50% in coordination of care (as documented) at patient's floor/unit and/or counseling patient: - Narrative A/P Narrative: Assessment and plan: * Acute exacerbation of COPD-continue management of steroid/bronchodilators, transition to oral steroids. Continue supplemental oxygen * Dyspnea secondary above- clinically improved. * Hypertension continue metoprolol/clonidine/amlodipine/losartan * DM type II continue basal prandial insulin. * Neuropathy on gabapentin * GERD on PPI * ESRD on hemodialysis Thursday managed by Dr. T[facility] nephrology * Chronic anemia S secondary ESRD * History of CVA on aspirin and Plavix * DNR * Prophylaxis heparin Plan * Transition to oral steroid * Supplemental oxygen/bronchodilators/RT treatments * Pre-existing medical condition management on home meds * PT OT/nutritional support * Possible discharge to [facility] in 24 hours Medical - PN: Qual - VTE Deep Vein Thrombosis/Pulmonary Embolism Present on Admission: No
--- NOTE | 2018-11-06 15:17 | Nephrology Progress Note ---
Subjective Patient information: Note initiated : 11/06/18 at 3:15 pm Service Date, if different from initiated Date: [] Patient: Covert,Cherelle a 62 y/o F admitted on 11/05/18 for shortness of breath. Chief Complaint: [] Shortness of breath is better. Objective - Vital Signs Vital signs: Vital Signs Temp Pulse Pulse Resp BP BP BP 11/06/18 12:00 98.8 F 20 112/56 11/06/18 11:28 77 16 11/06/18 07:55 98.2 F 20 120/50 11/06/18 07:23 82 16 11/06/18 03:50 98.1 F 79 20 178/96 11/05/18 23:15 82 18 11/05/18 23:05 98.0 F 82 17 181/92 11/05/18 19:46 86 18 11/05/18 19:39 97.3 F 84 22 152/75 11/05/18 16:35 98.3 F 89 24 H 184/93 11/05/18 16:08 98.3 F 24 H 184/89 11/05/18 16:07 97.4 F 89 18 180/83 11/05/18 16:01 88 21 179/87 11/05/18 15:47 89 18 180/83 11/05/18 15:32 85 21 209/107 11/05/18 15:16 83 22 201/108 Pulse Ox 11/06/18 12:00 91 11/06/18 11:28 11/06/18 07:55 90 11/06/18 07:23 90 11/06/18 03:50 96 11/05/18 23:15 11/05/18 23:05 94 11/05/18 19:46 92 11/05/18 19:39 92 11/05/18 16:35 94 11/05/18 16:08 94 11/05/18 16:07 93 11/05/18 16:01 87 L 11/05/18 15:47 93 11/05/18 15:32 99 11/05/18 15:16 94 Intake and Output 11/06/18 11/06/18 11/06/18 05:59 13:59 21:59 Intake Total 480 Balance 480 Intake: Oral 480 Other: Meal Lunch Percent of Meal Consumed 100% Feeding Ability Independent Intake & Output: Intake & Output 11/06/18 11/06/18 11/06/18 05:59 13:59 21:59 Intake Total 480 Balance 480 Intake: Oral 480 Other: Meal Lunch Percent of Meal Consumed 100% Feeding Ability Independent - General Appearance General appearance: well-developed, well-nourished EENT: ATNC Neck: no JVD Respiratory: no kyphosis, rhonchi Cardiology: no murmurs Gastrointestinal: normoactive bowel sounds Neurologic: no focal deficit - Lab 11/06/18 04:35 11/06/18 04:35 Most recent lab results Calcium 8.0 mg/dl (8.6-10.4) L 11/06/18 04:35 Phosphorus 4.2 mg/dL (2.7-4.5) 11/06/18 04:35 Magnesium 1.7 mg/dL (1.6-2.5) 11/06/18 04:35 Assessment and Plan (1) ESRD (end stage renal disease) on dialysis Status: Chronic Priority: Medium Comment: Had half dialysis Thursday. COPD excerbation. Does not appear fluid overloaded. Electrolytes ok.
--- NOTE | 2018-11-06 17:52 | Discharge Summary ---
Medical - DS: Prov Patient information: Note initiated : 11/06/18 at 5:49 pm Service Date, if different from initiated Date: [] Patient: Covert,Cherelle gonzalez 62 y/o F admitted on 11/05/18 for shortness of breath. Chief Complaint: [] Date of admission: 11/05/18 16:08 Discharge date: 11/07/18 Primary care physician: Leta Araujo Consults: 11/05/18 Consult to Physician [CONS] Stat Comment: Consulting Provider: Marshall Altamirano Reason For Exam: Physician to Consult Consult to Physician [CONS] Stat Comment: Consulting Provider: Nathan Tafoya Reason For Exam: Physician to Consult Medical - DS: Meds - Discharge Medications Prescriptions: predniSONE [Prednisone] 10 mg PO [facility] #1 tab Active and Home Medications: Home Medications Citalopram Hydrobromide [Celexa] 20 mg PO DAILY 07/11/15 [History Confirmed 11/05/18 Last Taken 09/19/18 08:00] Furosemide [Lasix] 80 mg PO DAILY 07/11/15 [History Confirmed 11/05/18 Last Taken 09/19/18 08:00] Gabapentin [Neurontin] 300 mg PO DAILY 07/11/15 [History Confirmed 11/05/18 Last Taken 09/19/18 08:00] QUEtiapine FUMARATE [Seroquel] 100 mg PO DAILY 07/11/15 [History Confirmed 11/05/18 Last Taken 09/19/18 08:00] Ascorbic Acid [Vitamin C] 250 mg PO BID 07/18/18 [History Confirmed 11/05/18 Last Taken 09/19/18 08:00] Aspirin [Aspirin EC] 81 mg PO DAILY 07/18/18 [History Confirmed 11/05/18 Last Taken 09/20/18 08:00] Clopidogrel Bisulfate [Plavix] 75 mg PO DAILY 07/18/18 [History Confirmed 11/05/18 Last Taken 09/19/18 08:00] Isosorbide Mononitrate [Imdur] 30 mg PO DAILY 07/18/18 [History Confirmed 11/05/18 Last Taken 09/19/18 08:00] Alendronate Sodium [Fosamax] 70 mg PO WEEKLY 09/20/18 [History Confirmed 11/05/18 Last Taken 09/16/18 08:00] Folic Acid/Vit Bcomp,C [Super B-Complex Folic-Vit C Tb] 1 mg PO DAILY 09/20/18 [History Confirmed 11/05/18 Last Taken 09/19/18 08:00] Vitamin D3 5,000 unit PO DAILY 09/20/18 [History Confirmed 11/05/18 Last Taken 09/19/18 08:00] amLODIPine [Norvasc] 10 mg PO HS 09/20/18 [History Confirmed 11/05/18 Last Taken 09/19/18 21:00] cloNIDine [Catapres-Tts 2] 1 patch TOPICAL WEEKLY 09/20/18 [History Confirmed 11/05/18 Last Taken 09/04/18] Albuterol Sulfate 2.5 mg INH Q2HP PRN 09/22/18 [History Confirmed 11/05/18 Last Taken Unknown] Budesonide 0.5 mg INH BID 09/22/18 [History Confirmed 11/05/18 Last Taken 09/18/18 21:00] Docusate Sodium [Dulcoease] 100 mg PO BID 09/22/18 [History Confirmed 11/05/18 Last Taken 09/19/18 08:00] Lactulose 30 ml PO PRN PRN 09/22/18 [History Confirmed 11/05/18 Last Taken Unknown] Melatonin 3 mg PO HS PRN 09/22/18 [History Confirmed 11/05/18 Last Taken 09/15/18 22:00] Pantoprazole 40 mg PO BID 09/22/18 [History Confirmed 11/05/18 Last Taken Unknown] Acetaminophen [Tylenol] 1 - 2 tab PO Q4HP PRN 11/05/18 [History Confirmed 11/05/18 Last Taken Unknown] Benzonatate [Tessalon] 100 mg PO TIDP PRN 11/05/18 [History Confirmed 11/05/18 Last Taken Unknown] Bisacodyl [Dulcolax] 10 mg PO DAILYP PRN 11/05/18 [History Confirmed 11/05/18 Last Taken Unknown] Bisacodyl [Dulcolax] 10 mg DE DAILYP PRN 11/05/18 [History Confirmed 11/05/18 Last Taken Unknown] Dextran 70/Hypromellose [Artificial Tears] 1 each OP BIDP PRN 11/05/18 [History Confirmed 11/05/18 Last Taken Unknown] Glucagon HCl 1 mg IJ DAILYP PRN 11/05/18 [History Confirmed 11/05/18 Last Taken Unknown] HYDROcodone/APAP 5/325MG [[place] 5-325Mg] 1 tab PO Q6HP PRN 11/05/18 [History Confirmed 11/05/18 Last Taken Unknown] Insulin Glargine, Human [Lantus] 12 unit SQ DAILY 11/05/18 [History Confirmed 11/05/18 Last Taken Unknown] Insulin Lispro [Admelog] 100 unit SQ ACHS 11/05/18 [History Confirmed 11/05/18 Last Taken Unknown] Ipratropium/Albuterol Sulfate [Iprat-Albut 0.5-3(2.5) mg/3 ml] 3 ml IH QID 11/05/18 [History Confirmed 11/05/18 Last Taken Unknown] Metoprolol Tartrate [Lopressor] 25 mg PO BID 11/05/18 [History Confirmed 11/05/18 Last Taken Unknown] Na Phos,M-B/Na Phos,Di-Ba [Fleets Adult] 1 dose DE DAILYP PRN 11/05/18 [History Confirmed 11/05/18 Last Taken Unknown] Nitroglycerin [Nitrostat] 0.4 mg SL Q5M PRN 11/05/18 [History Confirmed 11/05/18 Last Taken Unknown] Nut.tx.impaired Renal Fxn,Soy [Nepro] 237 ml PO DAILY 11/05/18 [History Confirmed 11/05/18 Last Taken Unknown] Medical - DS: Hosp Hospital course: Mr. Mcpherson is a 62 year old F Ms. Mcpherson is a 62 year old F who resides at [facility] who presents the ED with increasing sob while undergoing HD at [place] [facility] office. Per patient she was fine until this morning. Symptoms onset was abrupt. No associated chest pain or palpitations and lightheadedness or dizziness. However developed abrupt shortness of breath during dialysis and was referred to the ER. She denies recent sick contacts, shaking chills fever, productive sputum. She denies headache photophobia, chills. Patient further denies changes in medications. She denies associated chest pain, diaphoresis or palpitation. Initial workup in the ER was consistent with COPD exacerbation. Patient did not experience any relief in symptoms despite 3 breathing treatments and steroids. Subsequently hospitalist service was consulted. Notably she has had multiple hos pitalizations over the past year for pneumonia and heart failure. Troponins were elevated at 0.25 but lower than previous hospitalization At the time evaluation patient is alert and oriented. She feels slightly better. She was able to answer most of the questions as above. She denies active smoking. 11/06-patient doing a lot better. Able to talk in full sentences. Shortness of breath improved. No overnight fever chills or concerns per staff. Transition to oral steroids today. Anticipate discharge in 24 hours back to [facility]. 11/07 Patient doing well. No overnight events. Stable for discharge. Discharge diagnosis: COPD exacerbation - Time Spent with Patient Total time spent providing and/or coordinating discharge services: Greater than 30 minutes Medical - DS: Exam - Constitutional Vitals: Vital Signs Temp Pulse Pulse Resp BP BP Pulse Ox 11/06/18 16:00 98.3 F 20 118/59 93 11/06/18 15:16 76 16 11/06/18 12:00 98.8 F 20 112/56 91 11/06/18 11:28 77 16 11/06/18 07:55 98.2 F 20 120/50 90 11/06/18 07:23 82 16 90 11/06/18 03:50 98.1 F 79 20 178/96 96 11/05/18 23:15 82 18 11/05/18 23:05 98.0 F 82 17 181/92 94 11/05/18 19:46 86 18 92 11/05/18 19:39 97.3 F 84 22 152/75 92 Intake and Output 11/06/18 11/06/18 11/06/18 05:59 13:59 21:59 Intake Total 480 Balance 480 Intake: Oral 480 Other: Meal Lunch Percent of Meal Consumed 100% Feeding Ability Independent Medical - DS: Data Labs on day of discharge: Labs from last 24 hours 11/06/18 11/06/18 04:35 04:35 WBC 5.3 RBC 3.46 L Hgb 9.9 L Hct 31.1 L MCV 90.0 MCH 28.7 MCHC 31.9 RDW 21.4 H Plt Count 208 MPV 7.7 Total Counted 100 Seg Neutrophils % 93 H Band Neutrophils % 1 Lymphocytes % 5 L Monocytes % (Manual) 1 Platelet Estimate Normal RBC Morphology Abnorm A Anisocytosis 2+ A RBC Fragments Occ A Sodium 136 Potassium 4.6 Chloride 96 Carbon Dioxide 22 Anion Gap 18.0 H BUN 36 H Creatinine 3.8 H GFR Calculation 12 Glucose 288 H Uric Acid 5.1 Calcium 8.0 L Phosphorus 4.2 Magnesium 1.7 Total Bilirubin 0.2 Direct Bilirubin < 0.2 GGT 36 AST 10 ALT 8 Alkaline Phosphatase 129 H Lactate Dehydrogenase 169 Total Protein 6.2 Albumin 3.5 Globulin 2.7 Albumin/Globulin Ratio 1.3 Triglycerides 104 Medical - DS: A/P - Patient/Caregiver Discharge Instructions Activity: as per physical therapy Diet: Renal/Consistent Carbs Prescriptions: predniSONE [Prednisone] 10 mg PO [facility] #1 tab - Follow up Plan Follow up with: Leta Araujo MD [Primary Care Provider] - Nathan Tafoya MD [Physician] - Disposition: Xfer SNF Prognosis: Fair Rehab Potential: Fair I certify that the patient requires SNF services: Yes Overall status at discharge: patient is progressing back to baseline Medical - DS: Qual - VTE Deep Vein Thrombosis/Pulmonary Embolism Present on Admission: No
[2018-11-06] MEDS: ACETAMINOPHEN 325 MG TABLET PO PRN (20:17)
[2018-11-06] MEDS: SENNOSIDES/DOCUSATE SODIUM 1 TAB TABLET PO SCH (20:17)
[2018-11-06] MEDS: amLODIPine 10 MG TABLET PO SCH (20:18)
[2018-11-06] MEDS ORDERED: QUEtiapine 100 MG TABLET PO SCH (21:00)
[2018-11-07] MEDS: 0.9 % SODIUM CHLORIDE 10 ML SYRINGE IV SCH (04:35)
[2018-11-07] MEDS: IPRATROPIUM/ALBUTEROL 3 ML AMPUL.NEB NEB SCH ×2 (04:35→07:03)
[2018-11-07 06:27] LABS: Mean Cell Volume 90.9 fL (80.0-100.0); Mean Corpuscular HGB Conc 31.4 g/dL (31.0-36.0); Platelet Count 243 K/mcL (140-440); RBC 3.18 M/mcL (4.00-5.20); Red Cell Distribution Width 21.9 % (11.5-14.5)
[2018-11-07 06:53] LABS: ALT/SGPT 6 U/l (0-40); Albumin 3.4 gm/dL (3.2-5.2); Albumin/Globulin Ratio 1.4 (1.0-2.3); Alkaline Phosphatase 103 U/L (39-117); Bilirubin,Direct < 0.2 mg/dL (0.0-0.3); Blood Urea Nitrogen 65 mg/dl (8-23); Gamma Glutamyl Transpeptidase 31 U/L (5-36); Uric Acid 6.5 mg/dL (2.5-8.0)
[2018-11-07] MEDS: BUDESONIDE 0.5 MG/2 ML AMPUL.NEB NEB SCH (07:03)
[2018-11-07] MEDS ORDERED: predniSONE 20 MG TABLET PO SCH (08:00)
[2018-11-07 08:04] LABS: Anisocytosis 2+ (NONE SEEN); Lymphocytes % 14 % (15-49); Monocytes % (Manual) 4 % (1-12); Platelet Estimate NORMAL (NORMAL); RBC Morphology ABNORM (NORMAL); Segmented Neutrophils % 82 % (38-78)
[2018-11-07] MEDS: PANTOPRAZOLE 40 MG TABLET PO SCH (08:30)
[2018-11-07] MEDS: INSULIN LISPRO 1 UNIT/0.01 ML UNIT SQ SCH (08:30)
[2018-11-07] MEDS: SUCRALFATE 1 GM TABLET PO SCH (08:31)
[2018-11-07] MEDS: CLOPIDOGREL 75 MG TABLET PO SCH (10:08)
[2018-11-07] MEDS: DOCUSATE SODIUM 100 MG CAPSULE PO SCH (10:08)
[2018-11-07] MEDS: ASPIRIN 81 MG TAB.CHEW PO SCH (10:08)
[2018-11-07] MEDS: ISOSORBIDE MONONITRATE 30 MG TAB.XL.24H PO SCH (10:09)
[2018-11-07] MEDS: VITAMIN B COMPLEX 1 CAPSULE PO SCH (10:09)
[2018-11-07] MEDS: FUROSEMIDE 80 MG TABLET PO SCH (10:09)
[2018-11-07] MEDS: CITALOPRAM 20 MG TABLET PO SCH (10:09)
[2018-11-07] MEDS: VITAMIN D3 5,000 UNIT CAPSULE PO SCH (10:09)
[2018-11-07] MEDS: METOPROLOL TARTRATE 25 MG TABLET PO SCH (10:09)
[2018-11-07] MEDS: ASCORBIC ACID 500 MG TABLET PO SCH (10:09)
[2018-11-07] MEDS: GABAPENTIN 300 MG CAPSULE PO SCH (10:09)
[2018-11-07] MEDS: LOSARTAN 50 MG TABLET PO SCH (10:09)
[2018-11-07] MEDS: HEPARIN 5,000 UNIT/ML VIAL SQ SCH (10:10)
[2018-11-07] MEDS: cefTRIAXone 1 GM VIAL IV SCH (10:11)
[2018-11-07] MEDS: INSULIN GLARGINE, HUMAN 1 UNIT/0.01 ML SQ SCH (10:11)
[2018-11-11] MEDS ORDERED: ALENDRONATE SODIUM 70 MG TABLET PO SCH (07:30)
== END 2018-11-07 11:45 ==
LOC: ED 11:41 → MEDSUR 11:41
PROVIDERS: ADMIT Internal Medicine; ATTEND Internal Medicine

== ENCOUNTER 2018-12-14 20:53 | Inpatient (IN) ==
[2018-12-14 21:59] LABS: Basophils # (Auto) 0.1 K/mcL (0.0-0.3); Basophils % (Auto) 0.7 % (0.0-2.0); Eosinophils # (Auto) 0.5 K/mcL (0.0-0.7); Eosinophils % (Auto) 3.6 % (0.0-7.0); Granulocytes % (Auto) 74.7 % (38.0-78.0); Hematocrit 34.7 % (36.0-48.0); Hemoglobin 10.9 g/dL (12.0-15.0); Lymphocytes # (Auto) 1.9 K/mcL (1.5-4.8); Lymphocytes % (Auto) 14.2 % (15.5-49.0); Mean Cell Volume 85.5 fL (80.0-100.0); Mean Corpuscular HGB Conc 31.4 g/dL (31.0-36.0); Mean Platelet Volume 7.1 fL (7.4-10.4); Monocytes # (Auto) 0.9 K/mcL (0.1-0.9); Monocytes % (Auto) 6.8 % (1.0-12.0); Platelet Count 474 K/mcL (140-440); RBC 4.06 M/mcL (4.00-5.20); WBC 13.3 K/mcL (4.5-11.0)
[2018-12-14 22:22] LABS: Creatine Kinase MB 1.9 ng/ml (0-2.9)
[2018-12-14] MEDS ORDERED: PIPERACILLIN SODIUM/TAZOBACTAM 3.375 GM in DEXTROSE 5% IN WATER 50 ML IV ONE (22:27)
[2018-12-14 22:29] LABS: ALT/SGPT < 5 U/l (0-40); AST/SGOT 9 U/l (0-37); Albumin 4.1 gm/dL (3.2-5.2); Albumin/Globulin Ratio 1.3 (1.0-2.3); Alkaline Phosphatase 179 U/L (39-117); Bilirubin,Total 0.2 mg/dL (0.0-1.0); Blood Urea Nitrogen 33 mg/dl (8-23); Calcium 9.4 mg/dl (8.6-10.4); Carbon Dioxide 23 mmol/L (22-30); Chloride 94 mmol/L (96-108); Globulin 3.2 gm/dL (2.2-3.7); Glomerular Filtration Rate 9; Glucose 218 mg/dL (70-105); Potassium 4.3 mmol/L (3.3-5.1); Sodium 137 mmol/L (133-145)
[2018-12-14] MEDS ORDERED: VANCOMYCIN 1,000 MG in 0.9 % SODIUM CHLORIDE 250 ML IV ONE (23:04)
[2018-12-14] MEDS ORDERED: methylPREDNISolone SOD SUCC 125 MG/2 ML VIAL IV ONE ×2 (23:04→23:44)
--- NOTE | 2018-12-14 23:20 | Internal Med History&Physical ---
Medical - H&P: HPI Patient information: Note initiated : 12/14/18 at 11:13 pm Service Date, if different from initiated Date: [] Patient: Cherelle Mcpherson 62 y/o F admitted on for Shortness of breath. Chief Complaint: [] History of present illness: Ms. Mcpherson is a 62 year old F with history of end-stage renal disease on hemodialysis follows with Dr. Tafoya, COPD active smoker at 3 L of oxygen at baseline presents to the emergency room with complaints of shortness of breath that has been bothering her for the last 3 days. The patient is a [facility] resident. She notes that she is able to do basic activities at baseline, over the last 3 days she has noted progressive shortness of breath associated with some dry cough. Presently she is short of breath with minimal activity and at rest. She was noted to be hypoxic today at the [facility] with the oxygen saturation in the 70s she was given some duo nebs and brought to the emergency room for further evaluation. The patient admits to having some dizziness chest pain with cough and inspiration, denies any fever or chills, does have shortness of breath that is worse when she lies down as well as with any activity, she has edema feet, she denies any nausea vomiting diarrhea denies any abdominal pain denies any anxiety or depression denies any bleeding melena black stools or any other acute complaint In the emergency room on presentation patient was afebrile temperature 98.3 heart rate 107 respirations 23-25 blood pressure 182 x 90 saturating 89% on 5 L of oxygen The patient's chest x-ray shows right basilar possible pneumonia, she does have a reticulonodular pattern of infiltrate. Seems like this is a chronic finding noted to be possible inflammatory based on the previous CTs that was done. Mild CHF possible [id number] ultrasound was done to evaluate the IVC, IVC does collapse more than 50% with respiration . Dr. Tafoya was consulted and the patient admitted to the hospital for further management The patient has elected to be a DNR All systems: reviewed and no additional remarkable complaints except as stated (As per HPI rest negative) Medical - H&P: PMH Medical history: Medical History (Last Updated 11/05/18 @ 12:11 by Bhargav Gan DO) Chronic anticoagulation (Chronic) CAD (coronary artery disease) (Chronic) History of cervical cancer (Chronic) Chest pain (Acute) Congestive heart failure (Acute) Shortness of Breath (Acute) Acute hypercapnic respiratory failure (Acute) ESRD (end stage renal disease) on dialysis (Chronic) Fluid overload (Acute) Anemia of chronic disease (Chronic) HTN (hypertension) (Chronic) DM Surgical history: Past Surgical History (Last Updated 11/05/18 @ 12:09 by Bhargav Gan DO) S/P coronary artery stent placement (Acute) S/P hysterectomy with oophorectomy (Acute) Family history: reviewed and not pertinent Social history: [facility] resident Active Smoker Medical - H&P: Meds Home Medications Medication Instructions Recorded Confirmed Type Citalopram Hydrobromide [Celexa] 20 mg PO DAILY 07/11/15 11/05/18 History Furosemide [Lasix] 80 mg PO DAILY 07/11/15 11/05/18 History Gabapentin [Neurontin] 300 mg PO DAILY 07/11/15 11/05/18 History QUEtiapine FUMARATE [Seroquel] 100 mg PO DAILY 07/11/15 11/05/18 History Ascorbic Acid [Vitamin C] 250 mg PO BID 07/18/18 11/05/18 History Aspirin [Aspirin EC] 81 mg PO DAILY 07/18/18 11/05/18 History Clopidogrel Bisulfate [Plavix] 75 mg PO DAILY 07/18/18 11/05/18 History Isosorbide Mononitrate [Imdur] 30 mg PO DAILY 07/18/18 11/05/18 History Alendronate Sodium [Fosamax] 70 mg PO WEEKLY 09/20/18 11/05/18 History Folic Acid/Vit Bcomp,C [Super 1 mg PO DAILY 09/20/18 11/05/18 History B-Complex Folic-Vit C Tb] Vitamin D3 5,000 unit PO DAILY 09/20/18 11/05/18 History amLODIPine [Norvasc] 10 mg PO HS 09/20/18 11/05/18 History cloNIDine [Catapres-Tts 2] 1 patch TOPICAL WEEKLY 09/20/18 11/05/18 History Albuterol Sulfate 2.5 mg INH Q2HP PRN 09/22/18 11/05/18 History Budesonide 0.5 mg INH BID 09/22/18 11/05/18 History Docusate Sodium [Dulcoease] 100 mg PO BID 09/22/18 11/05/18 History Lactulose 30 ml PO PRN PRN 09/22/18 11/05/18 History Melatonin 3 mg PO HS PRN 09/22/18 11/05/18 History Pantoprazole 40 mg PO BID 09/22/18 11/05/18 History Acetaminophen [Tylenol] 1 - 2 tab PO Q4HP PRN 11/05/18 11/05/18 History Benzonatate [Tessalon] 100 mg PO TIDP PRN 11/05/18 11/05/18 History Bisacodyl [Dulcolax] 10 mg PO DAILYP PRN 11/05/18 11/05/18 History Dextran 70/Hypromellose 1 each OP BIDP PRN 11/05/18 11/05/18 History [Artificial Tears] Glucagon HCl 1 mg IJ DAILYP PRN 11/05/18 11/05/18 History HYDROcodone/APAP 5/325MG [[place] 1 tab PO Q6HP PRN 11/05/18 11/05/18 History 5-325Mg] Insulin Glargine, Human [Lantus] 12 unit SQ DAILY 11/05/18 11/05/18 History Insulin Lispro [Admelog] 100 unit SQ ACHS 11/05/18 11/05/18 History Ipratropium/Albuterol Sulfate 3 ml IH QID 11/05/18 11/05/18 History [Iprat-Albut 0.5-3(2.5) mg/3 ml] Metoprolol Tartrate [Lopressor] 25 mg PO BID 11/05/18 11/05/18 History Na Phos,M-B/Na Phos,Di-Ba [Fleets 1 dose NE DAILYP PRN 11/05/18 11/05/18 History Adult] Nitroglycerin [Nitrostat] 0.4 mg SL Q5M PRN 11/05/18 11/05/18 History Nut.tx.impaired Renal Fxn,Soy 237 ml PO DAILY 11/05/18 11/05/18 History [Nepro] Allergies Allergy/AdvReac Type Severity Reaction Status Date / Time adhesive tape Allergy Mild Rash Verified 11/05/18 17:52 iodine Allergy Mild Rash Verified 11/05/18 17:52 Sulfa (Sulfonamide Allergy Mild Rash Verified 11/05/18 17:48 Antibiotics) sucralfate [From Carafate] Allergy Unknown Unknown Verified 11/05/18 17:52 Medical - H&P: Exam - Constitutional Vitals: Temp Pulse Resp BP Pulse Ox 98.3 F 101 H 25 H 130/81 87 L 12/14/18 20:55 12/14/18 23:00 12/14/18 23:00 12/14/18 22:46 12/14/18 23:00 Exam: GENERAL: The patient is a well-developed, well-nourished in mild respiratory distress. Is alert and oriented x3. VITAL SIGNS: Reviewed and as noted elsewhere. HEENT: Head is normocephalic and atraumatic. Extraocular muscles are intact. Pupils are equal, round, and reactive to light. Nares appeared normal. Mouth appears any without lesions. Mucous membranes are dry NECK: Normal to inspection, Supple, No lymphadenopathy or thyromegaly. LUNGS: Air entry equal on both sides, lindsay decreased breath sounds, lindsay exp wheezing present, pt tachypenic, mild basilar crackles noted. using accessory muscles to breathe, mild resp distress. HEART: Regular rate and rhythm normal, S1 and S2 heard, no Gallop, S3 or Rub Noted, No Gross murmur heard. ABDOMEN: Soft, nontender, and nondistended. Positive bowel sounds. No hepatosplenomegaly was noted. EXTREMITIES: No cyanosis, clubbing, rash, lesions. edema ++ NEUROLOGIC: Cranial nerves II through XII are grossly intact. Motor and Sensory System Grossly Intact PSYCHIATRIC: Normal affect, Normal Mood. Appropriate Behavior. SKIN: No ulceration or wounds noted, No jaundice, No rash noted. Medical - H&P: Reslt - Labs CBC & Chem 7: 12/14/18 21:08 12/14/18 21:08 Labs: Short CBC 12/14/18 Range/Units 21:08 WBC 13.3 H (4.5-11.0) K/mcL Hgb 10.9 L (12.0-15.0) g/dL Hct 34.7 L (36.0-48.0) % Plt Count 474 H (140-440) K/mcL BMP 12/14/18 21:08 Sodium 137 Potassium 4.3 Chloride 94 L Carbon Dioxide 23 BUN 33 H Creatinine 4.7 H Glucose 218 H Calcium 9.4 Cardiac Enzymes 12/14/18 12/14/18 12/14/18 Range/Units 21:08 21:08 21:08 Total Creatine Kinase 23 L TNP (24-170) IU/L CK-MB (CK-2) 1.9 (0-2.9) ng/ml Troponin T 0.24 H* (0-0.03) ng/ml Liver Function 12/14/18 Range/Units 21:08 Total Bilirubin 0.2 (0.0-1.0) mg/dL AST 9 (0-37) U/l ALT < 5 (0-40) U/l Alkaline Phosphatase 179 H (39-117) U/L Albumin 4.1 (3.2-5.2) gm/dL Medical - H&P: A/P - Narrative A/P Narrative: A/P Acute on Chronic Respiratory failure Acute copd exacerbation Reticulodular pulmonary infiltrate Healthcare associated pneumoina End STage renal disease, on HD, FOllows Dr Tafoya Diabetes on Insulin Hypertension Hyperlipidemia Tobacco abuse Coronary Artery Disease Plan Admit to PCU status Duonebs, Steroids, and antibiotics for copd/pna Oxygen to maintain osat > 90, bipap if needed. Pt does not wish to be intubated. Insulin for SSI get Chest CT tomorrow, after HD to further evaluate pulmonary pathology, will see if she has followed up with pulmonary in past. Resume home medications as appropriate once verified. Tobacco cessation advised DVT hep sq Diet carb consistent DNR code status
[2018-12-14 23:25] LABS: ABG Methemoglobin 0.3 % (0.4-1.5); Total Hemoglobin 10.2 gm/dL (12.0-15.0); VBG Base Excess 1.7 (-2.0-2.0); VBG Oxygen Saturation 88.3 % (40.0-70.0); VBG PCO2 39.7 mmHg (41.0-51.0); VBG PH 7.43 U (7.32-7.42); VBG PO2 76 mmHg (25-40); VBG Total CO2 27.2 mmol/L (25.0-29.0)
[2018-12-14] MEDS ORDERED: IPRATROPIUM/ALBUTEROL 3 ML AMPUL.NEB NEB ONE (23:45)
[2018-12-15] MEDS ORDERED: ONDANSETRON 4 MG/2 ML VIAL IV PRN (01:06)
[2018-12-15] MEDS ORDERED: NALOXONE HCL 0.4 MG/ML VIAL IV PRN (01:06)
[2018-12-15] MEDS ORDERED: ACETAMINOPHEN 325 MG TABLET PO PRN (01:06)
[2018-12-15] MEDS ORDERED: DEXTROSE 50% 50 ML VIAL IV PRN (01:06)
[2018-12-15] MEDS ORDERED: VANCOMYCIN PER PHARMACY IV ONE (01:06)
[2018-12-15] MEDS ORDERED: DEXTROSE 31 GM ORAL.SUSP PO PRN (01:06)
[2018-12-15] MEDS ORDERED: HEPARIN 5,000 UNIT/ML VIAL ONE (01:55)
[2018-12-15] MEDS: HEPARIN 5,000 UNIT/ML VIAL SQ SCH ×3 (02:19→20:31)
[2018-12-15] MEDS: PIPERACILLIN SODIUM/TAZOBACTAM 2.25 GM in DEXTROSE 5% IN WATER 50 ML IV SCH ×4 (02:33→21:32)
[2018-12-15] MEDS ORDERED: IPRATROPIUM/ALBUTEROL 3 ML AMPUL.NEB NEB ONE ×3 (02:53→23:04)
[2018-12-15] MEDS ORDERED: INSULIN LISPRO 1 UNIT/0.01 ML UNIT SQ ONE (02:59)
[2018-12-15] MEDS: IPRATROPIUM/ALBUTEROL 3 ML AMPUL.NEB NEB SCH ×5 (03:00→18:56)
[2018-12-15] MEDS: INSULIN LISPRO 1 UNIT/0.01 ML UNIT SQ SCH ×5 (03:06→20:32)
--- NOTE | 2018-12-15 03:53 | XRay Report ---
CLINICAL INFORMATION: dyspnea COMPARISON: 12/01/2018 FINDINGS: Moderate cardiomegaly is unchanged. Left IJ double lumen catheter tip is in stable satisfactory position overlying the SVC right atrial junction. Mediastinum and pulmonary vasculature are unremarkable. COPD with moderate interstitial fibrosis throughout both lungs seen as before. Mild right basilar atelectasis is new IMPRESSION: COPD and moderate interstitial fibrosis. Mild right basilar atelectasis Interpreted and Authenticated by: Joe Centeno 12/15/18
[2018-12-15] MEDS: methylPREDNISolone SOD SUCC 125 MG/2 ML VIAL IV SCH ×3 (05:40→21:33)
[2018-12-15] MEDS: 0.9 % SODIUM CHLORIDE 10 ML SYRINGE IV SCH ×3 (05:41→20:35)
[2018-12-15] MEDS ORDERED: methylPREDNISolone SOD SUCC 125 MG/2 ML VIAL ONE (05:43)
[2018-12-15] MEDS ORDERED: VANCOMYCIN PER PHARMACY IV SCH (06:15)
[2018-12-15 06:24] LABS: Basophils # (Auto) 0 K/mcL (0.0-0.3); Basophils % (Auto) 0.1 % (0.0-2.0); Eosinophils # (Auto) 0.1 K/mcL (0.0-0.7); Eosinophils % (Auto) 0.4 % (0.0-7.0); Granulocytes % (Auto) 95.6 % (38.0-78.0); Hematocrit 33.7 % (36.0-48.0); Hemoglobin 10.8 g/dL (12.0-15.0); Lymphocytes # (Auto) 0.5 K/mcL (1.5-4.8); Lymphocytes % (Auto) 3.7 % (15.5-49.0); Mean Cell Volume 88.3 fL (80.0-100.0); Mean Corpuscular HGB Conc 31.9 g/dL (31.0-36.0); Mean Platelet Volume 7.2 fL (7.4-10.4); Monocytes # (Auto) 0 K/mcL (0.1-0.9); Monocytes % (Auto) 0.2 % (1.0-12.0); Platelet Count 392 K/mcL (140-440); RBC 3.82 M/mcL (4.00-5.20); Red Cell Distribution Width 16.7 % (11.5-14.5); WBC 14.5 K/mcL (4.5-11.0)
[2018-12-15 06:43] LABS: ALT/SGPT < 5 U/l (0-40); AST/SGOT 8 U/l (0-37); Albumin 3.7 gm/dL (3.2-5.2); Albumin/Globulin Ratio 1.1 (1.0-2.3); Alkaline Phosphatase 170 U/L (39-117); Bilirubin,Direct < 0.2 mg/dL (0.0-0.3); Bilirubin,Total 0.2 mg/dL (0.0-1.0); Blood Urea Nitrogen 38 mg/dl (8-23); Calcium 9.2 mg/dl (8.6-10.4); Carbon Dioxide 20 mmol/L (22-30); Chloride 93 mmol/L (96-108); Gamma Glutamyl Transpeptidase 35 U/L (5-36); Globulin 3.3 gm/dL (2.2-3.7); Glomerular Filtration Rate 8; Glucose 236 mg/dL (70-105); Lactate Dehydrogenase 161 U/L (94-250); Magnesium 1.9 mg/dL (1.6-2.5); Phosphorous 4.5 mg/dL (2.7-4.5); Potassium 4.9 mmol/L (3.3-5.1); Sodium 133 mmol/L (133-145); Triglycerides 149 mg/dl (<150); Uric Acid 4.3 mg/dL (2.5-8.0)
[2018-12-15] MEDS: PANTOPRAZOLE 40 MG TABLET PO SCH (08:03)
--- NOTE | 2018-12-15 08:48 | Internal Med Progress Note ---
Medical - PN: Subj Patient information: Note initiated : 12/15/18 at 8:33 am Service Date, if different from initiated Date: [] Patient: Cherelle Mcpherson 62 y/o F admitted on 12/15/18 for Shortness of breath. Chief Complaint: [] Interval history: Ms. Mcpherson is a 62 year old F with history of end-stage renal disease on hemodialysis follows with Dr. Tafoya, COPD active smoker at 3 L of oxygen at baseline presents to the emergency room with complaints of shortness of breath that has been bothering her for the last 3 days. The patient is a [facility] resident. She notes that she is able to do basic activities at baseline, over the last 3 days she has noted progressive shortness of breath associated with some dry cough. Presently she is short of breath with minimal activity and at rest. She was noted to be hypoxic today at the [facility] with the oxygen saturation in the 70s she was given some duo nebs and brought to the emergency room for further evaluation. The patient admits to having some dizziness chest pain with cough and inspiration, denies any fever or chills, does have shortness of breath that is worse when she lies down as well as with any activity, she has edema feet, she denies any nausea vomiting diarrhea denies any abdominal pain denies any anxiety or depression denies any bleeding melena black stools or any other acute complaint In the emergency room on presentation patient was afebrile temperature 98.3 heart rate 107 respirations 23-25 blood pressure 182 x 90 saturating 89% on 5 L of oxygen The patient's chest x-ray shows right basilar possible pneumonia, she does have a reticulonodular pattern of infiltrate. Seems like this is a chronic finding noted to be possible inflammatory based on the previous CTs that was done. Mild CHF possible [id number] ultrasound was done to evaluate the IVC, IVC does collapse more than 50% with respiration . Dr. Tafoya was consulted and the patient admitted to the hospital for further management 12/15 Patient seen examined, no acute issues,still feels quite week. Plan for HD today wbc trending up slightly, but did have steroids. on broad spectrum ABX Pertinent ROS: Denies headache, dizziness chest pain with cough present, no cough, shortness of breath present. Denies abdominal pain, nausea or vomiting. - Constitutional Vitals: Vital Signs Temp Pulse Resp BP Pulse Ox 98.3 F 84 22 150/74 90 12/15/18 04:01 12/15/18 07:36 12/15/18 07:36 12/15/18 06:00 12/15/18 07:36 Period Temp Pulse Resp BP Sys/Talley Pulse Ox Last 24 Hr 98.3 F-99.9 F 84-107 17-32 119-182/69-93 81-97 Intake and Output 12/14/18 12/15/18 12/15/18 21:59 05:59 13:59 Intake Total 350 Balance 350 Weight 160 lb 151 lb 11.2 oz Intake & Output: Intake & Output 12/14/18 12/15/18 12/15/18 21:59 05:59 13:59 Intake Total 350 Balance 350 Weight 160 lb 151 lb 11.2 oz Intake: IV 300 Zosyn 3.375 gm In Dextrose 5% 50 in Water 50 ml @ 100 mls/hr IV ONCE ONE Rx#:[id number] Vancomycin 1,000 mg In Sodium 250 Chloride 0.9% 250 ml @ 250 mls/ hr IV ONCE ONE Rx#:[id number] Oral 50 Other: Stool Size Small Stool Color Brown Stool Consistency Loose # of times incontinent of 1 Bowels Exam: Constitutional; Afebrile, cooperative, alert, not in distress. Respiratory system: Air Entry equal on both side, decreased air entry bilaterally but improved from last night, lindsay rhonchi, and wheezing present. no resp distress CVS- Rate rhythm regular, S1,S2 heard, no gallop, no rub. Abdomen- Soft nontender abdomen, no organomegaly, no tenderness, no guarding or rigidity, [employer]- AOOx3, moving all extremities, no gross focal deficit noted. Medical - PN: Obj Da - Labs CBC & Chem 7: 12/15/18 03:50 12/15/18 03:50 Labs: Abnormal Lab Results 12/15/18 12/15/18 12/14/18 03:50 03:50 23:06 WBC 14.5 H RBC 3.82 L Hgb 10.8 L Hct 33.7 L RDW 16.7 H Plt Count MPV 7.2 L Gran % 95.6 H Lymph % (Auto) 3.7 L Hale % (Auto) 0.2 L Gran # 13.9 H Lymph # (Auto) 0.5 L Hale # (Auto) 0 L ABG Methemoglobin 0.3 L VBG pH 7.43 H VBG pCO2 39.7 L VBG pO2 76 H VBG O2 Saturation 88.3 H VBG Lactic Acid Carboxyhemoglobin 4.8 H Total Hemoglobin 10.2 L Chloride 93 L Carbon Dioxide 20 L Anion Gap 20.0 H BUN 38 H Creatinine 5.4 H* Glucose 236 H Alkaline Phosphatase 170 H Total Creatine Kinase Myoglobin Troponin T NT-Pro-B Natriuret Pep 12/14/18 12/14/18 12/14/18 21:08 21:08 21:08 WBC RBC Hgb Hct RDW Plt Count MPV Gran % Lymph % (Auto) Hale % (Auto) Gran # Lymph # (Auto) Hale # (Auto) ABG Methemoglobin VBG pH VBG pCO2 VBG pO2 VBG O2 Saturation VBG Lactic Acid 2.1 H Carboxyhemoglobin Total Hemoglobin Chloride Carbon Dioxide Anion Gap BUN Creatinine Glucose Alkaline Phosphatase Total Creatine Kinase 23 L Myoglobin 121 H Troponin T 0.24 H* NT-Pro-B Natriuret Pep 51195.0 H 12/14/18 12/14/18 21:08 21:08 WBC 13.3 H RBC Hgb 10.9 L Hct 34.7 L RDW 16.0 H Plt Count 474 H MPV 7.1 L Gran % Lymph % (Auto) 14.2 L Hale % (Auto) Gran # 9.9 H Lymph # (Auto) Hale # (Auto) ABG Methemoglobin VBG pH VBG pCO2 VBG pO2 VBG O2 Saturation VBG Lactic Acid Carboxyhemoglobin Total Hemoglobin Chloride 94 L Carbon Dioxide Anion Gap 20.0 H BUN 33 H Creatinine 4.7 H Glucose 218 H Alkaline Phosphatase 179 H Total Creatine Kinase Myoglobin Troponin T NT-Pro-B Natriuret Pep Meds: Medications Acetaminophen (Tylenol) 650 mg PO Q4-6HP PRN PRN Reason: PAIN/FEVER > 101 Albuterol/Ipratropium (Duoneb) 3 ml NEB ONCE ONE Stop: 12/15/18 23:05 Albuterol/Ipratropium (Duoneb) 3 ml NEB Q4HRT [place] Last Admin: 12/15/18 07:20 Dose: 3 ml Documented by: Dextrose (Dextrose 50%) 0 ml IV UD PRN PRN Reason: Hypoglycemia Diagnostic Test (Pha) (Accu-Chek) 1 each FS ACHS [facility] Last Admin: 12/15/18 08:02 Dose: 1 each Documented by: Glucose (Insta-Glucose) 15 gm PO PRN PRN PRN Reason: Hypoglycemia Heparin Sodium (Porcine) (Heparin) 5,000 unit SQ Q12 [facility] Last Admin: 12/15/18 02:19 Dose: Not Given Documented by: Piperacillin Sod/Tazobactam (Sod 2.25 gm/ Dextrose) 50 mls @ 100 mls/hr IV Q8H [facility]; Protocol Insulin Glargine (Lantus) 10 unit SQ HS [facility] Insulin Human Lispro (Humalog) 0 unit SQ ACHS [facility]; Protocol Last Admin: 12/15/18 08:02 Dose: 4 units Documented by: Methylprednisolone Sodium Succinate (Solu-Medrol) 62.5 mg IV Q8 [facility] Last Admin: 12/15/18 05:40 Dose: 62.5 mg Documented by: Naloxone HCl (Narcan) 0.1 mg IV Q2MIN PRN PRN Reason: Opiate Reversal Ondansetron HCl (Zofran) 4 mg IV Q4-6HP PRN PRN Reason: Nausea And Vomiting Pantoprazole Sodium (Protonix) 40 mg PO QAMAC [facility] Last Admin: 12/15/18 08:03 Dose: 40 mg Documented by: Sodium Chloride (Saline Flush) 10 ml IV Q8 [facility] Last Admin: 12/15/18 05:41 Dose: 10 ml Documented by: Vancomycin HCl (Vancomycin Per Pharmacy) 1 order IV UD [facility]; Protocol - ABG Interpretation ABG results: 12/14/18 23:06 ABG Methemoglobin 0.3 L VBG pH 7.43 H VBG pCO2 39.7 L VBG pO2 76 H VBG HCO3 26.0 VBG Total CO2 27.2 VBG O2 Saturation 88.3 H VBG Base Excess 1.7 Medical - PN: A/P - Time Spent With Patient Total time spent is greater than 50% in coordination of care (as documented) at patient's floor/unit and/or counseling patient: - Narrative A/P Narrative: A/P Acute on Chronic Respiratory failure Acute copd exacerbation Reticulodular pulmonary infiltrate Healthcare associated pneumoina End STage renal disease, on HD, FOllows Dr Tafoya Diabetes on Insulin Hypertension Hyperlipidemia Tobacco abuse Coronary Artery Disease Plan continue to monitor on pcu status Duonebs, Steroids, and antibiotics for copd/pna, vanco and zosyn for now. Oxygen to maintain osat > 90, bipap if needed. Pt does not wish to be intubated. Insulin for SSI It seems pt was seen by Dr Dahl as per nephrology, will review his notes if possible. Resume home medications as appropriate once verified. Tobacco cessation advised DVT hep sq Diet carb consistent DNR code status Medical - PN: Qual - VTE Deep Vein Thrombosis/Pulmonary Embolism Present on Admission: No
--- NOTE | 2018-12-15 09:30 | Nephrology Progress Note ---
Subjective Patient information: Note initiated : 12/15/18 at 9:28 am Service Date, if different from initiated Date: [] Patient: Covert,Cherelle gonzalez 62 y/o F admitted on 12/15/18 for Shortness of breath. Chief Complaint: Does not feel well. Shortness of breath is better. Objective - Vital Signs Vital signs: Vital Signs Temp Pulse Pulse Resp BP BP Pulse Ox 12/15/18 08:00 98.2 F 99 H 20 144/85 90 12/15/18 07:36 84 22 90 12/15/18 07:00 88 19 144/73 91 12/15/18 06:31 89 19 85 L 12/15/18 06:00 94 H 21 150/74 92 12/15/18 05:22 88 19 90 12/15/18 05:00 89 19 143/72 90 12/15/18 04:21 90 19 90 12/15/18 04:01 98.3 F 95 H 19 156/74 89 L 12/15/18 03:43 94 H 19 89 L 12/15/18 03:01 94 H 19 147/78 92 12/15/18 02:01 92 H 22 133/69 91 12/15/18 01:42 88 L 12/15/18 01:39 85 L 12/15/18 01:31 95 H 27 H 133/90 85 L 12/15/18 01:22 88 L 12/15/18 01:21 101 H 19 119/93 84 L 12/15/18 01:00 99.9 F H 104 H 30 H 119/93 87 L 12/15/18 00:46 101 H 21 153/92 88 L 12/15/18 00:30 102 H 21 157/86 90 12/15/18 00:16 100 H 17 142/85 97 12/15/18 00:00 99.9 F H 102 H 23 H 148/87 93 12/14/18 23:46 102 H 24 H 134/79 88 L 12/14/18 23:31 106 H 18 149/82 88 L 12/14/18 23:16 103 H 17 150/79 89 L 12/14/18 23:01 102 H 20 141/77 89 L 12/14/18 23:00 101 H 25 H 87 L 12/14/18 22:46 102 H 17 130/81 90 12/14/18 22:29 102 H 19 133/80 88 L 12/14/18 21:42 103 H 21 81 L 12/14/18 21:16 103 H 22 138/84 86 L 12/14/18 21:01 107 H 32 H 182/90 84 L 12/14/18 20:55 98.3 F 107 H 23 H 182/90 86 L Intake and Output 12/14/18 12/15/18 12/15/18 21:59 05:59 13:59 Intake Total 350 360 Balance 350 360 Intake: IV 300 Zosyn 3.375 gm In Dextrose 5% 50 in Water 50 ml @ 100 mls/hr IV ONCE ONE Rx#:[id number] Vancomycin 1,000 mg In Sodium 250 Chloride 0.9% 250 ml @ 250 mls/ hr IV ONCE ONE Rx#:[id number] Oral 50 360 Other: Stool Size Small Stool Color Brown Stool Consistency Loose # of times incontinent of 1 Bowels Weight 160 lb 151 lb 11.2 oz Intake & Output: Intake & Output 12/14/18 12/15/18 12/15/18 21:59 05:59 13:59 Intake Total 350 360 Balance 350 360 Weight 160 lb 151 lb 11.2 oz Intake: IV 300 Zosyn 3.375 gm In Dextrose 5% 50 in Water 50 ml @ 100 mls/hr IV ONCE ONE Rx#:[id number] Vancomycin 1,000 mg In Sodium 250 Chloride 0.9% 250 ml @ 250 mls/ hr IV ONCE ONE Rx#:[id number] Oral 50 360 Other: Stool Size Small Stool Color Brown Stool Consistency Loose # of times incontinent of 1 Bowels - General Appearance General appearance: well-developed EENT: ATNC Neck: JVD Respiratory: kyphosis Cardiology: holosystolic murmur Gastrointestinal: normoactive bowel sounds Neurologic: no focal deficit - Lab 12/15/18 03:50 12/15/18 03:50 Most recent lab results Calcium 9.2 mg/dl (8.6-10.4) 12/15/18 03:50 Phosphorus 4.5 mg/dL (2.7-4.5) 12/15/18 03:50 Magnesium 1.9 mg/dL (1.6-2.5) 12/15/18 03:50 Assessment and Plan (1) ESRD (end stage renal disease) on dialysis Status: Chronic Priority: Medium Comment: Will have dialysis today. Will try to remove 5 liters of fluid. COPD. Electrolytes ok.
[2018-12-15] MEDS ORDERED: cloNIDine TTS 2 1 PATCH PATCH TD SCH (10:00)
--- NOTE | 2018-12-15 10:55 | Emergency Department Note ---
SOB HPI - General Chief Complaint: Shortness of Breath/Dyspnea Stated Complaint: shortness of beathe Time Seen by Provider: 12/14/18 21:42 Mode of arrival: EMS - History of Present Illness Patient is a resident at [facility]. She had dialysis yesterday. Her shortness of breath and chest pain is been going on has an increasingly severe problem in the last 3 days. She denies confusion. Her oxygen saturations have been low. She was given a DuoNeb at the facility followed by 2 albuterol treatments during route. She usually uses nebulizers once or twice daily X sometimes 3 times daily. She usually has to ask for them. At home she uses 3 L a of oxygen per nasal cannula continuously taking it off for smoking. She reports having a fever of 102 degrees yesterday or this morning she cannot remember which. She was given Tylenol and aspirin and asked to be brought to the emergency room for evaluation. REVIEW OF SYSTEMS: Chest pain is located in the substernal mid chest area with no radiation to the jaw, neck, arm. Has had some increase in cough. Her wheezing has been chronic without change. No change in her phlegm. No abdominal pain, nausea, vomiting, diarrhea, constipation No dysuria Has chronic back pain Has had significant weakness as well as some lightheaded/dizziness. Suffers with some anxiety and depression chronically. - Related Data Home Medications Medication Instructions Recorded Confirmed Citalopram Hydrobromide [Celexa] 20 mg PO DAILY 07/11/15 12/14/18 Furosemide [Lasix] 80 mg PO DAILY 07/11/15 12/14/18 Gabapentin [Neurontin] 300 mg PO DAILY 07/11/15 12/14/18 QUEtiapine FUMARATE [Seroquel] 100 mg PO DAILY 07/11/15 12/14/18 Ascorbic Acid [Vitamin C] 250 mg PO BID 07/18/18 12/14/18 Aspirin [Aspirin EC] 81 mg PO DAILY 07/18/18 12/14/18 Clopidogrel Bisulfate [Plavix] 75 mg PO DAILY 07/18/18 12/14/18 Isosorbide Mononitrate [Imdur] 30 mg PO DAILY 07/18/18 12/14/18 Alendronate Sodium [Fosamax] 70 mg PO WEEKLY 09/20/18 12/14/18 Folic Acid/Vit Bcomp,C [Super 1 mg PO DAILY 09/20/18 12/14/18 B-Complex Folic-Vit C Tb] Vitamin D3 5,000 unit PO DAILY 09/20/18 12/14/18 amLODIPine [Norvasc] 10 mg PO HS 09/20/18 12/14/18 cloNIDine [Catapres-Tts 2] 1 patch TOPICAL WEEKLY 09/20/18 12/14/18 Albuterol Sulfate 2.5 mg INH Q2HP PRN 09/22/18 12/14/18 Budesonide 0.5 mg INH BID 09/22/18 12/14/18 Docusate Sodium [Dulcoease] 100 mg PO BID 09/22/18 12/14/18 Lactulose 30 ml PO PRN PRN 09/22/18 12/14/18 Melatonin 3 mg PO HS PRN 09/22/18 12/14/18 Pantoprazole 40 mg PO BID 09/22/18 12/14/18 Acetaminophen [Tylenol] 1 - 2 tab PO Q4HP PRN 11/05/18 12/14/18 Benzonatate [Tessalon] 100 mg PO TIDP PRN 11/05/18 12/14/18 Bisacodyl [Dulcolax] 10 mg PO DAILYP PRN 11/05/18 12/14/18 Dextran 70/Hypromellose 1 each OP BIDP PRN 11/05/18 12/14/18 [Artificial Tears] Glucagon HCl 1 mg IJ DAILYP PRN 11/05/18 12/14/18 HYDROcodone/APAP 5/325MG [[place] 1 tab PO Q6HP PRN 11/05/18 12/14/18 5-325Mg] Insulin Lispro [Admelog] 100 unit SQ ACHS 11/05/18 12/14/18 Ipratropium/Albuterol Sulfate 3 ml IH QID 11/05/18 12/14/18 [Iprat-Albut 0.5-3(2.5) mg/3 ml] Metoprolol Tartrate [Lopressor] 25 mg PO BID 11/05/18 12/14/18 Na Phos,M-B/Na Phos,Di-Ba [Fleets 1 dose NE DAILYP PRN 11/05/18 12/14/18 Adult] Nitroglycerin [Nitrostat] 0.4 mg SL Q5M PRN 11/05/18 12/14/18 Nut.tx.impaired Renal Fxn,Soy 237 ml PO DAILY 11/05/18 12/14/18 [Nepro] Insulin Degludec [Tresiba] 10 unit SQ DAILY 12/14/18 12/14/18 Allergies Allergy/AdvReac Type Severity Reaction Status Date / Time adhesive tape Allergy Mild Rash Verified 11/05/18 17:52 iodine Allergy Mild Rash Verified 11/05/18 17:52 Sulfa (Sulfonamide Allergy Mild Rash Verified 11/05/18 17:48 Antibiotics) sucralfate [From Carafate] Allergy Unknown Unknown Verified 11/05/18 17:52 Past Medical History - Past Medical History [facility] Narrative: Medical History (Last Updated 12/15/18 @ 10:55 by Bhargav Gan DO) DNR (do not resuscitate) (Chronic) Chronic anticoagulation (Chronic) CAD (coronary artery disease) (Chronic) History of cervical cancer (Chronic) Chest pain (Acute) Congestive heart failure (Acute) Shortness of Breath (Acute) Acute hypercapnic respiratory failure (Acute) ESRD (end stage renal disease) on dialysis (Chronic) Fluid overload (Acute) Anemia of chronic disease (Chronic) HTN (hypertension) (Chronic) Past Surgical History (Last Updated 11/05/18 @ 12:09 by Bhargav Gan DO) S/P coronary artery stent placement (Acute) S/P hysterectomy with oophorectomy (Acute) Medical history: Reports: arthritis, chronic narcotics, COPD, CAD (coronary artery disease), DM, GI bleed, hypertension, osteoporosis, renal disease (On dialysis) Psychiatric history: Reports: anxiety, depression, PTSD - Social History smoking status: Current every day smoker Alcohol use: Reports: None Drug use: Reports: none, marijuana (occas) Physical Exam Limitations: physical limitation General appearance: alert, anxious, in distress Head: atraumatic, normocephalic Eye: Present: EOMI ENT: mucous membranes dry Neck: Present: trachea midline. Absent: lymphadenopathy, thyromegaly Chest: Present: symmetric chest wall rise Respiratory: Present: respiratory distress (mild), rales/crackles (mild), wheezes (moderate, diffuse), prolonged expiratory phase (mild). Absent: stridor, accessory muscle use Cardiovascular: Present: regular rate, normal rhythm. Absent: systolic murmur, diastolic murmur Abdominal: Present: soft. Absent: distention, tenderness, guarding, rebound, rigidity, organomegaly, mass Neurological: Present: alert, oriented X3 Psychiatric: Present: anxious (mild), flat affect, serious. Absent: agitated Skin: Present: warm, cool Course Vital Signs Temperature 98.3 F 12/14/18 20:55 Pulse Rate 107 H 12/14/18 20:55 Respiratory Rate 23 H 12/14/18 20:55 Blood Pressure 182/90 12/14/18 20:55 Pulse Oximetry (%) 86 L 12/14/18 20:55 Temperature 98.2 F 12/15/18 08:00 Pulse Rate 99 H 12/15/18 08:00 Respiratory Rate 20 12/15/18 08:00 Blood Pressure 144/85 12/15/18 08:00 Pulse Oximetry (%) 90 12/15/18 08:00 Shortness of Breath/Dyspnea - [facility] Narrative Medical decision making narrative: Acute worsening with shortness of breath and chest pain. Will need to do cardiac, pneumonia/hypoxia to and sepsis work-up. - Lab Data Result diagrams: 12/15/18 03:50 12/15/18 03:50 Lab Results 12/14/18 12/14/18 12/14/18 Range/Units 21:08 21:08 21:08 WBC 13.3 H (4.5-11.0) K/mcL RBC 4.06 (4.00-5.20) M/mcL Hgb 10.9 L (12.0-15.0) g/dL Hct 34.7 L (36.0-48.0) % MCV 85.5 (80.0-100.0) fL MCH 26.9 (26.0-34.0) pg MCHC 31.4 (31.0-36.0) g/dL RDW 16.0 H (11.5-14.5) % Plt Count 474 H (140-440) K/mcL MPV 7.1 L (7.4-10.4) fL Gran % 74.7 (38.0-78.0) % Lymph % (Auto) 14.2 L (15.5-49.0) % [place] % (Auto) 6.8 (1.0-12.0) % Eos % (Auto) 3.6 (0.0-7.0) % Baso % (Auto) 0.7 (0.0-2.0) % Gran # 9.9 H (1.8-8.0) K/mcL Lymph # (Auto) 1.9 (1.5-4.8) K/mcL [place] # (Auto) 0.9 (0.1-0.9) K/mcL Eos # (Auto) 0.5 (0.0-0.7) K/mcL Baso # (Auto) 0.1 (0.0-0.3) K/mcL ABG Methemoglobin (0.4-1.5) % VBG pH (7.32-7.42) U VBG pCO2 (41.0-51.0) mmHg VBG pO2 (25-40) mmHg VBG HCO3 (24.0-28.0) mmol/L VBG Total CO2 (25.0-29.0) mmol/L VBG O2 Saturation (40.0-70.0) % VBG Base Excess (-2.0-2.0) VBG Lactic Acid 2.1 H (0.5-2.0) mmol/L Carboxyhemoglobin (0.0-1.5) % THgb Total Hemoglobin (12.0-15.0) gm/dL O2 Delivery Level Sodium 137 (133-145) mmol/L Potassium 4.3 (3.3-5.1) mmol/L Chloride 94 L (96-108) mmol/L Carbon Dioxide 23 (22-30) mmol/L Anion Gap 20.0 H (8-16) BUN 33 H (8-23) mg/dl Creatinine 4.7 H (0.6-1.1) mg/dl GFR Calculation 9 Glucose 218 H (70-105) mg/dL Calcium 9.4 (8.6-10.4) mg/dl Total Bilirubin 0.2 (0.0-1.0) mg/dL AST 9 (0-37) U/l ALT < 5 (0-40) U/l Alkaline Phosphatase 179 H (39-117) U/L Total Creatine Kinase (24-170) IU/L CK-MB (CK-2) (0-2.9) ng/ml Myoglobin (25-58) ng/ml Troponin T (0-0.03) ng/ml NT-Pro-B Natriuret Pep (0-125) pg/ml Total Protein 7.3 (5.9-8.4) gm/dL Albumin 4.1 (3.2-5.2) gm/dL Globulin 3.2 (2.2-3.7) gm/dL Albumin/Globulin Ratio 1.3 (1.0-2.3) 12/14/18 12/14/18 12/14/18 Range/Units 21:08 21:08 21:08 WBC (4.5-11.0) K/mcL RBC (4.00-5.20) M/mcL Hgb (12.0-15.0) g/dL Hct (36.0-48.0) % MCV (80.0-100.0) fL MCH (26.0-34.0) pg MCHC (31.0-36.0) g/dL RDW (11.5-14.5) % Plt Count (140-440) K/mcL MPV (7.4-10.4) fL Gran % (38.0-78.0) % Lymph % (Auto) (15.5-49.0) % [place] % (Auto) (1.0-12.0) % Eos % (Auto) (0.0-7.0) % Baso % (Auto) (0.0-2.0) % Gran # (1.8-8.0) K/mcL Lymph # (Auto) (1.5-4.8) K/mcL [place] # (Auto) (0.1-0.9) K/mcL Eos # (Auto) (0.0-0.7) K/mcL Baso # (Auto) (0.0-0.3) K/mcL ABG Methemoglobin (0.4-1.5) % VBG pH (7.32-7.42) U VBG pCO2 (41.0-51.0) mmHg VBG pO2 (25-40) mmHg VBG HCO3 (24.0-28.0) mmol/L VBG Total CO2 (25.0-29.0) mmol/L VBG O2 Saturation (40.0-70.0) % VBG Base Excess (-2.0-2.0) VBG Lactic Acid (0.5-2.0) mmol/L Carboxyhemoglobin (0.0-1.5) % THgb Total Hemoglobin (12.0-15.0) gm/dL O2 Delivery Level Sodium (133-145) mmol/L Potassium (3.3-5.1) mmol/L Chloride (96-108) mmol/L Carbon Dioxide (22-30) mmol/L Anion Gap (8-16) BUN (8-23) mg/dl Creatinine (0.6-1.1) mg/dl GFR Calculation Glucose (70-105) mg/dL Calcium (8.6-10.4) mg/dl Total Bilirubin (0.0-1.0) mg/dL AST (0-37) U/l ALT (0-40) U/l Alkaline Phosphatase (39-117) U/L Total Creatine Kinase 23 L TNP (24-170) IU/L CK-MB (CK-2) 1.9 (0-2.9) ng/ml Myoglobin 121 H (25-58) ng/ml Troponin T 0.24 H* (0-0.03) ng/ml NT-Pro-B Natriuret Pep 73961.0 H (0-125) pg/ml Total Protein (5.9-8.4) gm/dL Albumin (3.2-5.2) gm/dL Globulin (2.2-3.7) gm/dL Albumin/Globulin Ratio (1.0-2.3) 12/14/18 Range/Units 23:06 WBC (4.5-11.0) K/mcL RBC (4.00-5.20) M/mcL Hgb (12.0-15.0) g/dL Hct (36.0-48.0) % MCV (80.0-100.0) fL MCH (26.0-34.0) pg MCHC (31.0-36.0) g/dL RDW (11.5-14.5) % Plt Count (140-440) K/mcL MPV (7.4-10.4) fL Gran % (38.0-78.0) % Lymph % (Auto) (15.5-49.0) % [place] % (Auto) (1.0-12.0) % Eos % (Auto) (0.0-7.0) % Baso % (Auto) (0.0-2.0) % Gran # (1.8-8.0) K/mcL Lymph # (Auto) (1.5-4.8) K/mcL [place] # (Auto) (0.1-0.9) K/mcL Eos # (Auto) (0.0-0.7) K/mcL Baso # (Auto) (0.0-0.3) K/mcL ABG Methemoglobin 0.3 L (0.4-1.5) % VBG pH 7.43 H (7.32-7.42) U VBG pCO2 39.7 L (41.0-51.0) mmHg VBG pO2 76 H (25-40) mmHg VBG HCO3 26.0 (24.0-28.0) mmol/L VBG Total CO2 27.2 (25.0-29.0) mmol/L VBG O2 Saturation 88.3 H (40.0-70.0) % VBG Base Excess 1.7 (-2.0-2.0) VBG Lactic Acid (0.5-2.0) mmol/L Carboxyhemoglobin 4.8 H (0.0-1.5) % THgb Total Hemoglobin 10.2 L (12.0-15.0) gm/dL O2 Delivery Level Not Reportable Sodium (133-145) mmol/L Potassium (3.3-5.1) mmol/L Chloride (96-108) mmol/L Carbon Dioxide (22-30) mmol/L Anion Gap (8-16) BUN (8-23) mg/dl Creatinine (0.6-1.1) mg/dl GFR Calculation Glucose (70-105) mg/dL Calcium (8.6-10.4) mg/dl Total Bilirubin (0.0-1.0) mg/dL AST (0-37) U/l ALT (0-40) U/l Alkaline Phosphatase (39-117) U/L Total Creatine Kinase (24-170) IU/L CK-MB (CK-2) (0-2.9) ng/ml Myoglobin (25-58) ng/ml Troponin T (0-0.03) ng/ml NT-Pro-B Natriuret Pep (0-125) pg/ml Total Protein (5.9-8.4) gm/dL Albumin (3.2-5.2) gm/dL Globulin (2.2-3.7) gm/dL Albumin/Globulin Ratio (1.0-2.3) Disposition Pt seen by [facility]/PA only: No Clinical Impression: COPD exacerbation, Elevated brain natriuretic peptide (BNP) level, ESRD (end stage renal disease) on dialysis Chest pain Qualifiers: Chest pain type: unspecified Qualified Code(s): R07.9 - Chest pain, unspecified Summary: With patient's hypoxia, abnormal chest x-ray, abnormal white count and lactic acid, needs to be further treated inpatient and I spoke with Dr. Rodriguez who kindly accepts her care. Elevated troponin is significant at 0.24 but this is actually now chronic for her. See discharge instructions and diagnoses. Disposition: Xfer As Inpt ([facility]) Condition: Fair
[2018-12-15 16:07] LABS: Vancomycin,Random 9.1 ug/mL
[2018-12-15] MEDS ORDERED: CARBOXYMETHYLCELLULOSE SODIUM 1 EACH DROPER.GEL OP PRN (19:06)
[2018-12-15] MEDS ORDERED: NITROGLYCERIN 0.4 MG TAB.SUBL SL PRN (19:06)
[2018-12-15] MEDS ORDERED: BENZONATATE 100 MG CAPSULE PO PRN (19:06)
[2018-12-15] MEDS: HYDROcodone/APAP 5/325MG TABLET PO PRN (20:25)
[2018-12-15] MEDS: ASCORBIC ACID 500 MG TABLET PO SCH (20:32)
[2018-12-15] MEDS: METOPROLOL TARTRATE 25 MG TABLET PO SCH (20:33)
[2018-12-15] MEDS ORDERED: amLODIPine 10 MG TABLET PO SCH (21:00)
[2018-12-15] MEDS ORDERED: QUEtiapine 100 MG TABLET PO SCH (21:00)
[2018-12-15] MEDS ORDERED: VANCOMYCIN 1,000 MG in 0.9 % SODIUM CHLORIDE 250 ML IV ONE (21:00)
[2018-12-15] MEDS ORDERED: INSULIN GLARGINE, HUMAN 1 UNIT/0.01 ML SQ SCH (21:00)
[2018-12-15] MEDS: DOCUSATE SODIUM 100 MG CAPSULE PO SCH (21:25)
[2018-12-15] MEDS: ISOSORBIDE MONONITRATE 30 MG TAB.XL.24H PO SCH (21:32)
[2018-12-16] MEDS: HYDROcodone/APAP 5/325MG TABLET PO PRN ×2 (02:07→08:04)
[2018-12-16] MEDS: IPRATROPIUM/ALBUTEROL 3 ML AMPUL.NEB NEB SCH ×7 (04:19→23:28)
[2018-12-16 05:15] LABS: Basophils # (Auto) 0 K/mcL (0.0-0.3); Basophils % (Auto) 0.1 % (0.0-2.0); Eosinophils # (Auto) 0 K/mcL (0.0-0.7); Eosinophils % (Auto) 0 % (0.0-7.0); Granulocytes % (Auto) 89.5 % (38.0-78.0); Hemoglobin 10.5 g/dL (12.0-15.0); Lymphocytes # (Auto) 0.5 K/mcL (1.5-4.8); Lymphocytes % (Auto) 7.7 % (15.5-49.0); Mean Cell Volume 88.3 fL (80.0-100.0); Mean Corpuscular HGB Conc 31.7 g/dL (31.0-36.0); Mean Platelet Volume 7.4 fL (7.4-10.4); Monocytes # (Auto) 0.2 K/mcL (0.1-0.9); Monocytes % (Auto) 2.7 % (1.0-12.0); Platelet Count 400 K/mcL (140-440); RBC 3.73 M/mcL (4.00-5.20); Red Cell Distribution Width 16.9 % (11.5-14.5); WBC 6.2 K/mcL (4.5-11.0)
[2018-12-16 05:41] LABS: ALT/SGPT < 5 U/l (0-40); AST/SGOT 7 U/l (0-37); Albumin 3.8 gm/dL (3.2-5.2); Albumin/Globulin Ratio 1.3 (1.0-2.3); Alkaline Phosphatase 154 U/L (39-117); Bilirubin,Direct < 0.2 mg/dL (0.0-0.3); Bilirubin,Total 0.2 mg/dL (0.0-1.0); Blood Urea Nitrogen 33 mg/dl (8-23); Calcium 9.2 mg/dl (8.6-10.4); Carbon Dioxide 23 mmol/L (22-30); Chloride 93 mmol/L (96-108); Gamma Glutamyl Transpeptidase 33 U/L (5-36); Globulin 2.9 gm/dL (2.2-3.7); Glomerular Filtration Rate 12; Glucose 263 mg/dL (70-105); Lactate Dehydrogenase 133 U/L (94-250); Magnesium 1.9 mg/dL (1.6-2.5); Phosphorous 4.2 mg/dL (2.7-4.5); Potassium 5.1 mmol/L (3.3-5.1); Sodium 133 mmol/L (133-145); Triglycerides 140 mg/dl (<150); Uric Acid 3.5 mg/dL (2.5-8.0)
[2018-12-16] MEDS: methylPREDNISolone SOD SUCC 125 MG/2 ML VIAL IV SCH ×3 (05:49→21:38)
[2018-12-16] MEDS: PIPERACILLIN SODIUM/TAZOBACTAM 2.25 GM in DEXTROSE 5% IN WATER 50 ML IV SCH ×2 (05:49→21:34)
[2018-12-16] MEDS: 0.9 % SODIUM CHLORIDE 10 ML SYRINGE IV SCH ×3 (05:49→21:37)
[2018-12-16] MEDS: BUDESONIDE 0.5 MG/2 ML AMPUL.NEB NEB SCH ×4 (07:10→19:02)
[2018-12-16] MEDS: INSULIN LISPRO 1 UNIT/0.01 ML UNIT SQ SCH ×4 (07:30→21:37)
[2018-12-16] MEDS: PANTOPRAZOLE 40 MG TABLET PO SCH (08:11)
[2018-12-16] MEDS: DOCUSATE SODIUM 100 MG CAPSULE PO SCH ×2 (08:54→21:36)
[2018-12-16] MEDS: ASCORBIC ACID 500 MG TABLET PO SCH ×2 (08:54→21:35)
[2018-12-16] MEDS: METOPROLOL TARTRATE 25 MG TABLET PO SCH ×2 (08:54→21:35)
[2018-12-16] MEDS: ISOSORBIDE MONONITRATE 30 MG TAB.XL.24H PO SCH (08:54)
[2018-12-16] MEDS: HEPARIN 5,000 UNIT/ML VIAL SQ SCH ×2 (08:55→21:34)
[2018-12-16] MEDS ORDERED: INSULIN DEGLUDEC 10 UNIT SQ SCH (09:00)
[2018-12-16] MEDS ORDERED: CLOPIDOGREL 75 MG TABLET PO SCH (09:00)
[2018-12-16] MEDS ORDERED: CITALOPRAM 20 MG TABLET PO SCH (09:00)
[2018-12-16] MEDS ORDERED: GABAPENTIN 300 MG CAPSULE PO SCH (09:00)
[2018-12-16] MEDS ORDERED: VITAMIN B COMPLEX 1 CAPSULE PO SCH (09:00)
[2018-12-16] MEDS ORDERED: FUROSEMIDE 80 MG TABLET PO SCH (09:00)
[2018-12-16] MEDS ORDERED: ASPIRIN 81 MG TAB.CHEW PO SCH (09:00)
--- NOTE | 2018-12-16 09:10 | Nephrology Progress Note ---
Subjective Patient information: Note initiated : 12/16/18 at 9:09 am Service Date, if different from initiated Date: [] Patient: Covert,Cherelle a 62 y/o F admitted on 12/15/18 for Shortness of breath. Chief Complaint: Feels better. Breathing is better as well. Objective - Vital Signs Vital signs: Vital Signs Temp Pulse Pulse Resp BP Pulse Ox 12/16/18 08:16 87 21 151/86 93 12/16/18 08:07 101 H 21 161/102 90 12/16/18 08:01 145/93 89 L 12/16/18 07:12 96 H 16 93 12/16/18 07:00 95 H 19 158/70 93 12/16/18 06:01 90 19 160/80 89 L 12/16/18 06:00 96 H 89 L 12/16/18 05:01 98 H 20 166/83 93 12/16/18 04:01 98.6 F 90 17 167/76 89 L 12/16/18 03:01 98 H 14 154/91 96 12/16/18 02:01 101 H 23 H 140/86 87 L 12/16/18 01:16 104 H 20 96 12/16/18 01:01 95 H 19 156/72 96 12/16/18 00:01 94 H 20 146/71 89 L 12/15/18 23:33 103 H 22 152/71 93 12/15/18 23:30 98.7 F 94 H 22 157/71 93 12/15/18 23:26 98.7 F 92 H 21 157/71 94 12/15/18 23:02 98 H 24 H 165/66 90 12/15/18 22:20 96 H 18 93 12/15/18 22:01 95 H 21 168/90 89 L 12/15/18 21:01 99 H 23 H 170/106 91 12/15/18 20:01 96 H 21 149/82 88 L 12/15/18 20:00 93 12/15/18 19:32 98.1 F 23 H 144/98 12/15/18 19:05 99 H 21 140/101 89 L 12/15/18 19:01 100 H 20 149/92 92 12/15/18 19:00 98.1 F 105 H 24 H 144/98 12/15/18 18:57 95 H 26 H 12/15/18 18:48 95 H 24 H 145/104 91 12/15/18 18:36 101 H 19 139/107 87 L 12/15/18 18:29 95 H 26 H 90 12/15/18 18:01 96 H 14 153/62 95 12/15/18 17:02 97 H 23 H 135/89 90 12/15/18 16:02 100 H 19 159/143 94 12/15/18 16:00 103 H 29 H 91 12/15/18 15:46 101 H 32 H 142/98 90 12/15/18 15:31 98.1 F 90 20 125/39 90 12/15/18 15:22 94 H 22 130/82 94 12/15/18 15:16 92 H 22 130/61 91 12/15/18 15:05 97.6 F 130/82 12/15/18 15:02 102 H 16 129/87 88 L 12/15/18 15:00 97.6 F 100 H 129/87 12/15/18 14:58 108 H 25 H 93 12/15/18 14:46 100 H 24 H 113/87 87 L 12/15/18 14:45 101 H 113/87 12/15/18 14:30 112 H 27 H 142/85 89 L 12/15/18 14:15 105 H 25 H 146/126 92 12/15/18 14:13 99 H 40 H 128/74 91 12/15/18 14:00 93 H 23 H 128/74 96 12/15/18 13:45 92 H 21 133/66 91 12/15/18 13:30 108 H 22 126/57 93 12/15/18 13:15 109 H 21 131/77 91 12/15/18 13:01 105 H 18 127/77 90 12/15/18 13:00 106 H 127/77 12/15/18 12:46 105 H 18 124/75 93 12/15/18 12:45 105 H 124/75 12/15/18 12:31 106 H 30 H 136/74 93 12/15/18 12:30 107 H 136/74 12/15/18 12:16 103 H 20 120/93 91 12/15/18 12:15 105 H 120/93 12/15/18 12:02 97.5 F 101 H 20 122/63 91 12/15/18 12:00 103 H 122/63 12/15/18 11:41 91 12/15/18 11:36 105 H 18 12/15/18 11:31 30 H 152/81 12/15/18 11:30 97.4 F 104 H 152/81 12/15/18 11:18 99.1 F H 12/15/18 11:01 96 H 26 H 153/85 94 12/15/18 11:00 98.4 F 99 H 153/85 12/15/18 10:47 88 16 150/76 91 12/15/18 10:01 92 H 19 140/81 91 12/15/18 09:24 92 H 22 133/74 91 Intake and Output 12/15/18 12/16/18 12/16/18 21:59 05:59 13:59 Intake Total 300 50 270 Output Total 4057 Balance -3757 50 270 Intake: IV 300 50 Zosyn 2.25 gm In Dextrose 5% in 50 50 Water 50 ml @ 100 mls/hr IV Q8H [facility] Rx#:[id number] Oral 270 Output: Hemodialysis UF 4057 Other: Meal Dinner Breakfast Percent of Meal Consumed 100% 100% Feeding Ability Assist with Tray Set Up Independent Stool Size Small Stool Color Brown Stool Consistency Loose Weight 147 lb 8 oz Intake & Output: Intake & Output 12/15/18 12/16/18 12/16/18 21:59 05:59 13:59 Intake Total 300 50 270 Output Total 4057 Balance -3757 50 270 Weight 147 lb 8 oz Intake: IV 300 50 Zosyn 2.25 gm In Dextrose 5% in 50 50 Water 50 ml @ 100 mls/hr IV Q8H [facility] Rx#:[id number] Oral 270 Output: Hemodialysis UF 4057 Other: Meal Dinner Breakfast Percent of Meal Consumed 100% 100% Feeding Ability Assist with Tray Set Up Independent Stool Size Small Stool Color Brown Stool Consistency Loose - General Appearance General appearance: well-developed EENT: ATNC Neck: no JVD Respiratory: no kyphosis Cardiology: diastolic murmur Gastrointestinal: normoactive bowel sounds Neurologic: no focal deficit Musculoskeletal: no deformities - Lab 12/16/18 03:52 12/16/18 03:52 Most recent lab results Calcium 9.2 mg/dl (8.6-10.4) 12/16/18 03:52 Phosphorus 4.2 mg/dL (2.7-4.5) 12/16/18 03:52 Magnesium 1.9 mg/dL (1.6-2.5) 12/16/18 03:52 Assessment and Plan (1) ESRD (end stage renal disease) on dialysis Status: Chronic Priority: Medium Comment: Will have ultrafiltration today. Will try to remove 3 liters of fluid. COPD. Electrolytes ok.
[2018-12-16] MEDS ORDERED: DEXTROSE 50% 50 ML VIAL IV PRN (10:10)
[2018-12-16] MEDS ORDERED: NALOXONE HCL 0.4 MG/ML VIAL IV PRN (10:10)
[2018-12-16] MEDS ORDERED: HYDROcodone/APAP 5/325MG TABLET PO PRN (10:10)
[2018-12-16] MEDS ORDERED: DEXTROSE 31 GM ORAL.SUSP PO PRN (10:10)
[2018-12-16] MEDS ORDERED: ONDANSETRON 4 MG/2 ML VIAL IV PRN (10:10)
[2018-12-16] MEDS ORDERED: VANCOMYCIN PER PHARMACY IV SCH (10:10)
[2018-12-16] MEDS ORDERED: BENZONATATE 100 MG CAPSULE PO PRN (10:10)
[2018-12-16] MEDS ORDERED: NITROGLYCERIN 0.4 MG TAB.SUBL SL PRN (10:10)
[2018-12-16] MEDS ORDERED: CARBOXYMETHYLCELLULOSE SODIUM 1 EACH DROPER.GEL OP PRN (10:10)
[2018-12-16] MEDS ORDERED: ACETAMINOPHEN 325 MG TABLET PO PRN (10:10)
--- NOTE | 2018-12-16 10:27 | Internal Med Progress Note ---
Medical - PN: Subj Patient information: Note initiated : 12/16/18 at 10:25 am Service Date, if different from initiated Date: [] Patient: Cherelle Mcpherson 62 y/o F admitted on 12/15/18 for Shortness of breath. Chief Complaint: [] Interval history: Ms. Mcpherson is a 62 year old F with history of end-stage renal disease on hemodialysis follows with Dr. Tafoya, COPD active smoker at 3 L of oxygen at baseline presents to the emergency room with complaints of shortness of breath that has been bothering her for the last 3 days. The patient is a half-way resident. She notes that she is able to do basic activities at baseline, over the last 3 days she has noted progressive shortness of breath associated with some dry cough. Presently she is short of breath with minimal activity and at rest. She was noted to be hypoxic today at the half-way with the oxygen saturation in the 70s she was given some duo nebs and brought to the emergency room for further evaluation. The patient admits to having some dizziness chest pain with cough and inspiration, denies any fever or chills, does have shortness of breath that is worse when she lies down as well as with any activity, she has edema feet, she denies any nausea vomiting diarrhea denies any abdominal pain denies any anxiety or depression denies any bleeding melena black stools or any other acute complaint In the emergency room on presentation patient was afebrile temperature 98.3 heart rate 107 respirations 23-25 blood pressure 182 x 90 saturating 89% on 5 L of oxygen The patient's chest x-ray shows right basilar possible pneumonia, she does have a reticulonodular pattern of infiltrate. Seems like this is a chronic finding noted to be possible inflammatory based on the previous CTs that was done. Mild CHF possible [id number] ultrasound was done to evaluate the IVC, IVC does collapse more than 50% with respiration . Dr. Tafoya was consulted and the patient admitted to the hospital for further management 12/15 Patient seen examined, no acute issues,still feels quite week. Plan for HD today wbc trending up slightly, but did have steroids. on broad spectrum ABX 12/16 Pt seen examined, no acute issues, s/p HD, still has epigastric d/chest pain, worse with cough, improved from yesterday. back to 3 L oxygen was sitting in the chair solving crosswords this AM, tolerated AM meals well xfer to med surg CT scan chest done,results pending. labs stable , wbc improving. Pertinent ROS: Denies headache, dizziness prseent pleuritic chest pain, no palpitations much improved sob and cough Denies abdominal pain, nausea or vomiting. - Constitutional Vitals: Vital Signs Temp Pulse Resp BP Pulse Ox 98.6 F 87 21 151/86 93 12/16/18 04:01 12/16/18 08:16 12/16/18 08:16 12/16/18 08:16 12/16/18 08:16 Period Temp Pulse Resp BP Sys/Talley Pulse Ox Last 24 Hr 97.4 F-99.1 F 87-113 14-40 113-170/39-143 87-96 Intake and Output 12/15/18 12/16/18 12/16/18 21:59 05:59 13:59 Intake Total 300 50 270 Output Total 4057 Balance -3757 50 270 Weight 147 lb 8 oz Intake & Output: Intake & Output 12/15/18 12/16/18 12/16/18 21:59 05:59 13:59 Intake Total 300 50 270 Output Total 4057 Balance -3757 50 270 Weight 147 lb 8 oz Intake: IV 300 50 Zosyn 2.25 gm In Dextrose 5% in 50 50 Water 50 ml @ 100 mls/hr IV Q8H [facility] Rx#:[id number] Oral 270 Output: Hemodialysis UF 4057 Other: Meal Dinner Breakfast Percent of Meal Consumed 100% 100% Feeding Ability Assist with Tray Set Up Independent Stool Size Small Stool Color Brown Stool Consistency Loose Exam: Constitutional; Afebrile, cooperative, alert, not in distress. Respiratory system: Air Entry equal on both sides, air entry improved from yesterday, mild exp wheeze, improvee crackles. CVS- Rate rhythm regular, S1,S2 heard, no gallop, no rub. Abdomen- Soft nontender abdomen, no organomegaly, no tenderness, no guarding or rigidity, [employer]- AOOx3, moving all extremities, no gross focal deficit noted. Medical - PN: Obj Da - Labs CBC & Chem 7: 12/16/18 03:52 12/16/18 03:52 Labs: Abnormal Lab Results 12/16/18 12/16/18 12/15/18 03:52 03:52 03:50 WBC RBC 3.73 L Hgb 10.5 L Hct 33.0 L RDW 16.9 H Plt Count MPV Gran % 89.5 H Lymph % (Auto) 7.7 L Tripp % (Auto) Gran # Lymph # (Auto) 0.5 L Tripp # (Auto) ABG Methemoglobin VBG pH VBG pCO2 VBG pO2 VBG O2 Saturation VBG Lactic Acid Carboxyhemoglobin Total Hemoglobin Chloride 93 L 93 L Carbon Dioxide 20 L Anion Gap 17.0 H 20.0 H BUN 33 H 38 H Creatinine 3.7 H 5.4 H* Glucose 263 H 236 H Alkaline Phosphatase 154 H 170 H Total Creatine Kinase Myoglobin Troponin T NT-Pro-B Natriuret Pep 12/15/18 12/14/18 12/14/18 03:50 23:06 21:08 WBC 14.5 H RBC 3.82 L Hgb 10.8 L Hct 33.7 L RDW 16.7 H Plt Count MPV 7.2 L Gran % 95.6 H Lymph % (Auto) 3.7 L Tripp % (Auto) 0.2 L Gran # 13.9 H Lymph # (Auto) 0.5 L Tripp # (Auto) 0 L ABG Methemoglobin 0.3 L VBG pH 7.43 H VBG pCO2 39.7 L VBG pO2 76 H VBG O2 Saturation 88.3 H VBG Lactic Acid Carboxyhemoglobin 4.8 H Total Hemoglobin 10.2 L Chloride Carbon Dioxide Anion Gap BUN Creatinine Glucose Alkaline Phosphatase Total Creatine Kinase 23 L Myoglobin 121 H Troponin T NT-Pro-B Natriuret Pep 48985.0 H 12/14/18 12/14/18 12/14/18 21:08 21:08 21:08 WBC RBC Hgb Hct RDW Plt Count MPV Gran % Lymph % (Auto) Tripp % (Auto) Gran # Lymph # (Auto) Tripp # (Auto) ABG Methemoglobin VBG pH VBG pCO2 VBG pO2 VBG O2 Saturation VBG Lactic Acid 2.1 H Carboxyhemoglobin Total Hemoglobin Chloride 94 L Carbon Dioxide Anion Gap 20.0 H BUN 33 H Creatinine 4.7 H Glucose 218 H Alkaline Phosphatase 179 H Total Creatine Kinase Myoglobin Troponin T 0.24 H* NT-Pro-B Natriuret Pep 12/14/18 21:08 WBC 13.3 H RBC Hgb 10.9 L Hct 34.7 L RDW 16.0 H Plt Count 474 H MPV 7.1 L Gran % Lymph % (Auto) 14.2 L Tripp % (Auto) Gran # 9.9 H Lymph # (Auto) Tripp # (Auto) ABG Methemoglobin VBG pH VBG pCO2 VBG pO2 VBG O2 Saturation VBG Lactic Acid Carboxyhemoglobin Total Hemoglobin Chloride Carbon Dioxide Anion Gap BUN Creatinine Glucose Alkaline Phosphatase Total Creatine Kinase Myoglobin Troponin T NT-Pro-B Natriuret Pep Meds: Medications Acetaminophen (Tylenol) 650 mg PO Q4-6HP PRN PRN Reason: PAIN/FEVER > 101 Hydrocodone Bitart/Acetaminophen ([place] 5/325mg) 1 tab PO Q6HP PRN PRN Reason: PAIN LEVEL 3-6 Albuterol/Ipratropium (Duoneb) 3 ml NEB Q4HRT [facility] Amlodipine Besylate (Norvasc) 10 mg PO HS [facility] Artificial Tears (Refresh Celluvisc) 1 each OP BIDP PRN PRN Reason: Dry Eyes Ascorbic Acid (Vitamin C) 250 mg PO BID [facility] Aspirin (Aspirin) 81 mg PO DAILY [facility] Benzonatate (Tessalon) 100 mg PO TIDP PRN PRN Reason: Cough Budesonide (Pulmicort) 0.5 mg NEB Q12 [facility] Citalopram Hydrobromide (Celexa) 20 mg PO DAILY [facility] Clonidine HCl (Catapres Tts 2) 1 patch TD We@1000 [facility] Clopidogrel Bisulfate (Plavix) 75 mg PO DAILY [facility] Dextrose (Dextrose 50%) 0 ml IV UD PRN PRN Reason: Hypoglycemia Diagnostic Test (Pha) (Accu-Chek) 1 each FS ACHS [facility] Docusate Sodium (Colace) 100 mg PO BID [facility] Furosemide (Lasix) 80 mg PO DAILY [facility] Gabapentin (Neurontin) 300 mg PO DAILY [facility] Glucose (Insta-Glucose) 15 gm PO PRN PRN PRN Reason: Hypoglycemia Heparin Sodium (Porcine) (Heparin) 5,000 unit SQ Q12 [facility] Piperacillin Sod/Tazobactam (Sod 2.25 gm/ Dextrose) 50 mls @ 100 mls/hr IV Q12H [facility]; Protocol Insulin Glargine (Lantus) 10 unit SQ HS [facility] Insulin Human Lispro (Humalog) 0 unit SQ ACHS [facility]; Protocol Isosorbide Mononitrate (Imdur) 30 mg PO DAILY [facility] Methylprednisolone Sodium Succinate (Solu-Medrol) 62.5 mg IV Q8 [facility] Metoprolol Tartrate (Lopressor) 25 mg PO BID [facility] Naloxone HCl (Narcan) 0.1 mg IV Q2MIN PRN PRN Reason: Opiate Reversal Nicotine (Nicoderm) 14 mg TOPICAL DAILY@1000 [facility] Nitroglycerin (Nitrostat) 0.4 mg SL Q5M PRN PRN Reason: Chest Pain Ondansetron HCl (Zofran) 4 mg IV Q4-6HP PRN PRN Reason: Nausea And Vomiting Pantoprazole Sodium (Protonix) 40 mg PO QAMAC [facility] Quetiapine Fumarate (Seroquel) 100 mg PO HS [facility] Sodium Chloride (Saline Flush) 10 ml IV Q8 [facility] Vancomycin HCl (Vancomycin Per Pharmacy) 1 order IV UD [facility]; Protocol Vitamin B Complex (Vitamin B Complex) 1 cap PO DAILY [facility] - ABG Interpretation ABG results: 12/14/18 23:06 ABG Methemoglobin 0.3 L VBG pH 7.43 H VBG pCO2 39.7 L VBG pO2 76 H VBG HCO3 26.0 VBG Total CO2 27.2 VBG O2 Saturation 88.3 H VBG Base Excess 1.7 Medical - PN: A/P - Time Spent With Patient Total time spent is greater than 50% in coordination of care (as documented) at patient's floor/unit and/or counseling patient: - Narrative A/P Narrative: A/P Acute on Chronic Respiratory failure Acute copd exacerbation Reticulodular pulmonary infiltrate Healthcare associated pneumoina End STage renal disease, on HD, FOllows Dr Tafoya Diabetes on Insulin Hypertension Hyperlipidemia Tobacco abuse Coronary Artery Disease Plan xfer to med surg Duonebs, Steroids, and antibiotics for copd/pna, vanco and zosyn for now. Pt improved significantly. Oxygen to maintain osat > 90, back to baseline oxygen needs. at 3 L via NC Insulin for SSI Resume home medications as appropriate once verified. Tobacco cessation advised, nicotine replacement patch DVT hep sq Diet carb consistent DNR code status Medical - PN: Qual - VTE Deep Vein Thrombosis/Pulmonary Embolism Present on Admission: No
[2018-12-16] MEDS: NICOTINE 14 MG PATCH TOPICAL SCH (11:25)
--- NOTE | 2018-12-16 13:18 | Cat Scan Report ---
CLINICAL INFORMATION: Pulmonary fibrosis. Shortness of breath COMPARISON: Chest CTs 02/21/2015 and 09/20/2018 TECHNIQUE: 0.625 mm axial slices were obtained from the lung apices through the bases without intravenous contrast. 2.5 mm Sagittal, coronal and axial reformatted images were processed and reviewed at bone, lung and soft tissue windows. 7 mm axial MIP images were also reconstructed to optimize pulmonary nodule detection.The exam was performed using radiation dose optimization techniques including, but not limited to, automated exposure control, adjustment of the mA and/or kV according to patient size and use of iterative reconstruction technique. FINDINGS: Pulmonary parenchymal windows show severe centrilobular emphysema changes featuring chronic bronchitis (elevated lung volumes and dilatation/wall thickening of the bronchi) and multiple bullae essentially replacing the upper lobe parenchyma and scattered throughout the right middle and lower lobe periphery. In addition, there is moderate interstitial fibrosis throughout both lungs - more severe in the upper lobes. A new moderate consolidated atelectasis/infiltrate has developed in the medial/posterior basilar segments of the right lower lobe. A smaller region of consolidated infiltrate/atelectasis has worsened in the medial posterior basilar segment left lower lobe.. An irregular masslike infiltrate in the left upper lobe has decreased from 2.8 x 1.6 cm to 1 cm x 1 cm On today's exam A second masslike infiltrate in the posterior segment left upper lobe, adjacent to the major fissure has decreased from 3.8 x 1.6 cm to 1.5 cm X 1 cm. On the previous study, there is a moderate patchy paramediastinal infiltrate involving the medial segment of the right middle lobe which has now cleared. The two elongated nodules in the superior segment right lower lobe are unchanged each approximately 15 mm. Scattered nodules appreciated. A new 7.4 millimeter nodule has developed in the superior segment of the left lower lobe (image 43). An 8.5 mm nodule in the left upper lobe, image 57, is unchanged. A 6.6 cm nodule in the posterior segment left upper lobe, image 62, is unchanged. A small right pleural effusion is new. Mediastinal windows show the heart is mildly enlarged with moderately heavy calcific plaque. Central pulmonary arteries are enlarged compatible with pulmonary hypertension related COPD. Main pulmonary diameter 3.4 cm. Mildly enlarged lymph nodes in the lower mediastinum subcarinal and hilar region are unchanged and also likely benign reactive adenopathy. The esophagus grossly normal. IMPRESSION: 1. Severe centrilobular emphysema changes between chronic bronchitis and innumerable bullae replacing all of the upper lobe lung parenchyma and scattered within the peripheral right middle and lower lobes. Moderate interstitial fibrosis - stable 2. Enlargement of central pulmonary arteries compatible pulmonary hypertension related to COPD 3. New moderate consolidated atelectasis/infiltrate medial/posterior basilar segments of the right lower lobe. Moderate patchy and atelectasis/infiltrate medial posterior basilar segments of the left lower lobe has worsened. However, the remaining masslike infiltrates, seen throughout the remainder of both lungs, have regressed since the CT three months ago. 4. Scattered nodules are stable with the exception of a new 7 mm nodule in the superior segment left lower lobe. It is likely inflammatory Interpreted and Authenticated by: Joe Centeno 12/16/18
[2018-12-16] MEDS ORDERED: QUEtiapine 100 MG TABLET PO SCH (21:00)
[2018-12-16] MEDS ORDERED: PIPERACILLIN SODIUM/TAZOBACTAM 2.25 GM in DEXTROSE 5% IN WATER 50 ML IV SCH (21:00)
[2018-12-16] MEDS ORDERED: INSULIN GLARGINE, HUMAN 1 UNIT/0.01 ML SQ SCH (21:00)
[2018-12-16] MEDS ORDERED: amLODIPine 10 MG TABLET PO SCH (21:00)
[2018-12-17] MEDS: IPRATROPIUM/ALBUTEROL 3 ML AMPUL.NEB NEB SCH ×2 (03:15→07:31)
[2018-12-17] MEDS: methylPREDNISolone SOD SUCC 125 MG/2 ML VIAL IV SCH (05:38)
[2018-12-17] MEDS: 0.9 % SODIUM CHLORIDE 10 ML SYRINGE IV SCH (05:38)
[2018-12-17 06:47] LABS: Basophils # (Auto) 0 K/mcL (0.0-0.3); Basophils % (Auto) 0 % (0.0-2.0); Eosinophils # (Auto) 0 K/mcL (0.0-0.7); Eosinophils % (Auto) 0.1 % (0.0-7.0); Granulocytes % (Auto) 90.1 % (38.0-78.0); Hematocrit 35.7 % (36.0-48.0); Hemoglobin 11.3 g/dL (12.0-15.0); Lymphocytes # (Auto) 0.7 K/mcL (1.5-4.8); Lymphocytes % (Auto) 7.5 % (15.5-49.0); Mean Cell Volume 88.4 fL (80.0-100.0); Mean Corpuscular HGB Conc 31.5 g/dL (31.0-36.0); Mean Platelet Volume 7.6 fL (7.4-10.4); Monocytes # (Auto) 0.2 K/mcL (0.1-0.9); Monocytes % (Auto) 2.3 % (1.0-12.0); Platelet Count 496 K/mcL (140-440); RBC 4.04 M/mcL (4.00-5.20); Red Cell Distribution Width 16.5 % (11.5-14.5); WBC 9.1 K/mcL (4.5-11.0)
[2018-12-17] MEDS: INSULIN LISPRO 1 UNIT/0.01 ML UNIT SQ SCH (07:18)
[2018-12-17 07:25] LABS: ALT/SGPT 5 U/l (0-40); AST/SGOT 7 U/l (0-37); Albumin/Globulin Ratio 1.4 (1.0-2.3); Alkaline Phosphatase 155 U/L (39-117); Bilirubin,Direct < 0.2 mg/dL (0.0-0.3); Bilirubin,Total 0.2 mg/dL (0.0-1.0); Blood Urea Nitrogen 67 mg/dl (8-23); Calcium 9.4 mg/dl (8.6-10.4); Carbon Dioxide 21 mmol/L (22-30); Chloride 91 mmol/L (96-108); Gamma Glutamyl Transpeptidase 38 U/L (5-36); Globulin 2.9 gm/dL (2.2-3.7); Glomerular Filtration Rate 8; Glucose 243 mg/dL (70-105); Lactate Dehydrogenase 168 U/L (94-250); Magnesium 2.1 mg/dL (1.6-2.5); Phosphorous 5.3 mg/dL (2.7-4.5); Potassium 5.3 mmol/L (3.3-5.1); Sodium 134 mmol/L (133-145); Triglycerides 235 mg/dl (<150)
[2018-12-17] MEDS ORDERED: PANTOPRAZOLE 40 MG TABLET PO SCH (07:30)
[2018-12-17] MEDS: BUDESONIDE 0.5 MG/2 ML AMPUL.NEB NEB SCH (07:31)
--- NOTE | 2018-12-17 07:51 | Discharge Summary ---
Medical - DS: Prov Patient information: Note initiated : 12/17/18 at 7:48 am Service Date, if different from initiated Date: [] Patient: Ronnit,Cherelle gonzalez 62 y/o F admitted on 12/15/18 for Shortness of breath. Chief Complaint: [] Date of admission: 12/15/18 01:00 Discharge date: 12/17/18 Primary care physician: Leta Araujo Consults: 12/14/18 Consult to Physician [CONS] Stat Comment: Consulting Provider: Nathan Tafoya Reason For Exam: Physician to Consult Consult to Physician [CONS] Stat Comment: Consulting Provider: Tomi Rodriguez Reason For Exam: Physician to Consult Medical - DS: Meds - Discharge Medications Prescriptions: Amoxicillin/Potassium Clav [Augmentin] 875 mg PO Q12H #10 tablet predniSONE [Prednisone] [facility] tablet Active and Home Medications: Home Medications Citalopram Hydrobromide [Celexa] 20 mg PO DAILY 07/11/15 [History Confirmed 12/14/18 Last Taken 12/14/18] Furosemide [Lasix] 80 mg PO DAILY 07/11/15 [History Confirmed 12/14/18 Last Taken 12/14/18] Gabapentin [Neurontin] 300 mg PO DAILY 07/11/15 [History Confirmed 12/14/18 Last Taken 12/14/18] QUEtiapine FUMARATE [Seroquel] 100 mg PO DAILY 07/11/15 [History Confirmed 12/14/18 Last Taken 12/14/18] Ascorbic Acid [Vitamin C] 250 mg PO BID 07/18/18 [History Confirmed 12/14/18 Last Taken 12/14/18] Aspirin [Aspirin EC] 81 mg PO DAILY 07/18/18 [History Confirmed 12/14/18 Last Taken 12/14/18] Clopidogrel Bisulfate [Plavix] 75 mg PO DAILY 07/18/18 [History Confirmed 12/14/18 Last Taken 12/14/18] Isosorbide Mononitrate [Imdur] 30 mg PO DAILY 07/18/18 [History Confirmed 12/14/18 Last Taken 12/14/18] Alendronate Sodium [Fosamax] 70 mg PO WEEKLY 09/20/18 [History Confirmed 12/14/18 Last Taken 12/09/18] Folic Acid/Vit Bcomp,C [Super B-Complex Folic-Vit C Tb] 1 mg PO DAILY 09/20/18 [History Confirmed 12/14/18 Last Taken 12/14/18] Vitamin D3 5,000 unit PO DAILY 09/20/18 [History Confirmed 12/14/18 Last Taken 12/14/18] amLODIPine [Norvasc] 10 mg PO HS 09/20/18 [History Confirmed 12/14/18 Last Taken 12/14/18] cloNIDine [Catapres-Tts 2] 1 patch TOPICAL WEEKLY 09/20/18 [History Confirmed 12/14/18 Last Taken 11/24/18] Albuterol Sulfate 2.5 mg INH Q2HP PRN 09/22/18 [History Confirmed 12/14/18 Last Taken 11/29/18] Budesonide 0.5 mg INH BID 09/22/18 [History Confirmed 12/14/18 Last Taken 12/14/18] Docusate Sodium [Dulcoease] 100 mg PO BID 09/22/18 [History Confirmed 12/14/18 Last Taken 12/14/18] Lactulose 30 ml PO PRN PRN 09/22/18 [History Confirmed 12/14/18 Last Taken Unknown] Melatonin 3 mg PO HS PRN 09/22/18 [History Confirmed 12/14/18 Last Taken 09/15/18 22:00] Pantoprazole 40 mg PO BID 09/22/18 [History Confirmed 12/14/18 Last Taken 12/14/18] Acetaminophen [Tylenol] 1 - 2 tab PO Q4HP PRN 11/05/18 [History Confirmed 12/14/18 Last Taken 12/13/18] Benzonatate [Tessalon] 100 mg PO TIDP PRN 11/05/18 [History Confirmed 12/14/18 Last Taken Unknown] Bisacodyl [Dulcolax] 10 mg PO DAILYP PRN 11/05/18 [History Confirmed 12/14/18 Last Taken Unknown] Dextran 70/Hypromellose [Artificial Tears] 1 each OP BIDP PRN 11/05/18 [History Confirmed 12/14/18 Last Taken 12/14/18] Glucagon HCl 1 mg IJ DAILYP PRN 11/05/18 [History Confirmed 12/14/18 Last Taken Unknown] HYDROcodone/APAP 5/325MG [[place] 5-325Mg] 1 tab PO Q6HP PRN 11/05/18 [History Confirmed 12/14/18 Last Taken 12/14/18] Insulin Lispro [Admelog] 100 unit SQ ACHS 11/05/18 [History Confirmed 12/14/18 Last Taken 12/14/18 16:30] Ipratropium/Albuterol Sulfate [Iprat-Albut 0.5-3(2.5) mg/3 ml] 3 ml IH QID 11/05/18 [History Confirmed 12/14/18 Last Taken 12/14/18] Metoprolol Tartrate [Lopressor] 25 mg PO BID 11/05/18 [History Confirmed 12/14/18 Last Taken 12/14/18] Na Phos,M-B/Na Phos,Di-Ba [Fleets Adult] 1 dose NM DAILYP PRN 11/05/18 [History Confirmed 12/14/18 Last Taken Unknown] Nitroglycerin [Nitrostat] 0.4 mg SL Q5M PRN 11/05/18 [History Confirmed 12/14/18 Last Taken Unknown] Nut.tx.impaired Renal Fxn,Soy [Nepro] 237 ml PO DAILY 11/05/18 [History Confirmed 12/14/18 Last Taken 12/14/18] Insulin Degludec [Tresiba] 10 unit SQ DAILY 12/14/18 [History Confirmed 12/14/18 Last Taken 12/14/18] Amoxicillin/Potassium Clav [Augmentin] 875 mg PO Q12H #10 tablet 12/17/18 [Rx Last Taken Unknown] predniSONE [Prednisone] 40 mg PO QAC #5 tablet 12/17/18 [Rx Last Taken Unknown] Medical - DS: Hosp Hospital course: Discharge diagnoses * * Acute hypoxic respiratory failure-clinically improving. Secondary to pneumonia/COPD flare * Acute exacerbation of COPD-clinically improved with bronchodilators/steroids * Healthcare associated pneumonia-clinically improved. Continue Augmentin facial 5 days. White count normalized * Sepsis secondary to above. Improved * ESRD on hemodialysis managed by Dr. Tafoya * DM type II stable on home meds * Hypertension managed on home meds * Tobacco dependence continued on nicotine patch * History of CAD on metoprolol/isosorbide/Plavix/aspirin * GERD on PPI Brief hospital course Ms. Mcpherson is a 62 year old F with history of end-stage renal disease on hemodialysis follows with Dr. Tafoya, COPD active smoker at 3 L of oxygen at baseline presents to the emergency room with complaints of shortness of breath that has been bothering her for the last 3 days. The patient is a shelter resident. She notes that she is able to do basic activities at baseline, over the last 3 days she has noted progressive shortness of breath associated with some dry cough. Presently she is short of breath with minimal activity and at rest. She was noted to be hypoxic today at the shelter with the oxygen saturation in the 70s she was given some duo nebs and brought to the emergency room for further evaluation. The patient admits to having some dizziness chest pain with cough and inspiration, denies any fever or chills, does have shortness of breath that is worse when she lies down as well as with any activity, she has edema feet, she denies any nausea vomiting diarrhea denies any abdominal pain denies any anxiety or depression denies any bleeding melena black stools or any other acute complaint In the emergency room on presentation patient was afebrile temperature 98.3 heart rate 107 respirations 23-25 blood pressure 182 x 90 saturating 89% on 5 L of oxygen The patient's chest x-ray shows right basilar possible pneumonia, she does have a reticulonodular pattern of infiltrate. Seems like this is a chronic finding noted to be possible inflammatory based on the previous CTs that was done. Mild CHF possible [id number] ultrasound was done to evaluate the IVC, IVC does collapse more than 50% with respiration . Dr. Tafoya was consulted and the patient admitted to the hospital for further management 12/15 Patient seen examined, no acute issues,still feels quite week. Plan for HD today wbc trending up slightly, but did have steroids. on broad spectrum ABX 12/16 Pt seen examined, no acute issues, s/p HD, still has epigastric d/chest pain, worse with cough, improved from yesterday. back to 3 L oxygen was sitting in the chair solving crosswords this AM, tolerated AM meals well xfer to med surg CT scan chest done,results pending. labs stable , wbc improving. 12/17-patient doing well. White count down to 6000. Recovering well. CT scan improved since previous one, extensive COPD, fibrotic changes. Will need outpatient pulmonology referral. Continue Augmentin/prednisone for additional 5 days. Discharge in stable state with recommendations and medications as per Discharge diagnosis: . - Time Spent with Patient Total time spent providing and/or coordinating discharge services: Greater than 30 minutes Medical - DS: Exam - Constitutional Vitals: Vital Signs Temp Pulse Pulse Resp BP BP BP 12/17/18 03:14 81 20 12/17/18 03:00 97.6 F 99 H 16 137/67 12/16/18 23:31 97.8 F 82 23 H 127/68 12/16/18 19:55 98.9 F 93 H 17 140/81 12/16/18 19:00 89 24 H 12/16/18 18:59 83 24 H 12/16/18 16:00 96.5 F L 97 H 22 150/89 12/16/18 15:20 99 H 16 12/16/18 13:16 97.5 F 96 H 113/67 12/16/18 13:00 96 H 120/77 12/16/18 12:50 95 H 122/83 12/16/18 12:31 97 H 124/85 12/16/18 12:15 96 H 128/87 12/16/18 12:00 94 H 138/91 12/16/18 11:52 98.6 F 96 H 20 146/88 12/16/18 11:50 93 H 146/88 12/16/18 11:33 98.7 F 91 H 138/96 12/16/18 11:30 138/96 12/16/18 08:31 91 H 24 H 154/79 12/16/18 08:16 87 21 151/86 12/16/18 08:07 101 H 21 161/102 12/16/18 08:01 145/93 Pulse Ox 12/17/18 03:14 12/17/18 03:00 94 12/16/18 23:31 92 12/16/18 19:55 90 12/16/18 19:00 90 12/16/18 18:59 12/16/18 16:00 90 12/16/18 15:20 12/16/18 13:16 12/16/18 13:00 12/16/18 12:50 12/16/18 12:31 12/16/18 12:15 12/16/18 12:00 12/16/18 11:52 92 12/16/18 11:50 12/16/18 11:33 12/16/18 11:30 12/16/18 08:31 88 L 12/16/18 08:16 93 12/16/18 08:07 90 12/16/18 08:01 89 L Intake and Output 12/16/18 12/17/18 12/17/18 21:59 05:59 13:59 Intake Total 290 Output Total 0 Balance 290 Intake: IV 50 Zosyn 2.25 gm In Dextrose 5% in 50 Water 50 ml @ 100 mls/hr IV Q12H [facility] Rx#:[id number] Oral 240 Output: Void Amount 0 Other: Meal Dinner Percent of Meal Consumed 100% Feeding Ability Independent Stool Size Smear Stool Color Brown Stool Consistency Soft Loose # Bowel Movements 0 Weight 147 lb Medical - DS: Data Labs on day of discharge: Labs from last 24 hours 12/17/18 12/17/18 04:04 04:04 WBC 9.1 RBC 4.04 Hgb 11.3 L Hct 35.7 L MCV 88.4 MCH 27.9 MCHC 31.5 RDW 16.5 H Plt Count 496 H MPV 7.6 Gran % 90.1 H Lymph % (Auto) 7.5 L [place] % (Auto) 2.3 Eos % (Auto) 0.1 Baso % (Auto) 0 Gran # 8.2 H Lymph # (Auto) 0.7 L [place] # (Auto) 0.2 Eos # (Auto) 0 Baso # (Auto) 0 Sodium 134 Potassium 5.3 H Chloride 91 L Carbon Dioxide 21 L Anion Gap 22.0 H BUN 67 H Creatinine 5.5 H* GFR Calculation 8 Glucose 243 H Uric Acid 6.0 Calcium 9.4 Phosphorus 5.3 H Magnesium 2.1 Total Bilirubin 0.2 Direct Bilirubin < 0.2 GGT 38 H AST 7 ALT 5 Alkaline Phosphatase 155 H Lactate Dehydrogenase 168 Total Protein 6.9 Albumin 4.0 Globulin 2.9 Albumin/Globulin Ratio 1.4 Triglycerides 235 H Preliminary micro results at discharge 12/14/18 21:24 Blood Culture - Preliminary Blood 12/14/18 21:29 Blood Culture - Preliminary Blood 12/15/18 08:27 Sputum Culture - Preliminary Sputum - Induced Medical - DS: A/P - Patient/Caregiver Discharge Instructions Activity: as per physical therapy, increase activity as tolerated Diet: Renal/Consistent Carbs Additional Instructions: Follow-up PCP in 5 days Follow-up nephrology for scheduled hemodialysis Follow-up pulmonology for advanced COPD management/fibrotic lung disease I recommend primary care physician to check CBC BMP UA as a posthospital follow- up and Chest x-ray in 1 week. Antibiotics for additional 5 days of Augmentin Oral prednisone for 5 days Please schedule pulmonary function test as outpatient in 3 weeks Continue aggressive bowel regimen to prevent constipation Continue fall precautions Continue aggressive PT OT evaluation and treatment at SNF. ST eval and treatment if indicated All meals on chair sitting upright at 90 degrees to prevent aspiration Return to ER if worsening fever chills shortness of breath, diarrhea, bleeding Review risk and side effect profile of medications including antibiotics. Side effect may include mild to severe reaction including rash, diarrhea, cdiff and even which can be prevented by close follow-up with PCP and monitoring for side effects Refrain from smoking and alcohol Continue diet and activity as advised Discussed importance of medication adherence Please review medication list with patient prior to discharge Please schedule follow-up with PCP/Providers prior to discharge and provide printouts Prescriptions: Amoxicillin/Potassium Clav [Augmentin] 875 mg PO Q12H #10 tablet predniSONE [Prednisone] 40 mg PO [facility] #5 tablet - Follow up Plan Follow up with: Leta Araujo MD [Primary Care Provider] - Disposition: Xf SNF Prognosis: Fair Rehab Potential: Fair I certify that the patient requires SNF services: Yes Overall status at discharge: patient is progressing back to baseline Medical - DS: Qual - VTE Deep Vein Thrombosis/Pulmonary Embolism Present on Admission: No
[2018-12-17] MEDS: DOCUSATE SODIUM 100 MG CAPSULE PO SCH (08:50)
[2018-12-17] MEDS: ASCORBIC ACID 500 MG TABLET PO SCH (08:52)
[2018-12-17] MEDS: HEPARIN 5,000 UNIT/ML VIAL SQ SCH (08:54)
[2018-12-17] MEDS: METOPROLOL TARTRATE 25 MG TABLET PO SCH (08:55)
[2018-12-17] MEDS: NICOTINE 14 MG PATCH TOPICAL SCH (08:56)
[2018-12-17] MEDS ORDERED: GABAPENTIN 300 MG CAPSULE PO SCH (09:00)
[2018-12-17] MEDS ORDERED: CITALOPRAM 20 MG TABLET PO SCH (09:00)
[2018-12-17] MEDS ORDERED: CLOPIDOGREL 75 MG TABLET PO SCH (09:00)
[2018-12-17] MEDS ORDERED: ASPIRIN 81 MG TAB.CHEW PO SCH (09:00)
[2018-12-17] MEDS ORDERED: VITAMIN B COMPLEX 1 CAPSULE PO SCH (09:00)
[2018-12-17] MEDS ORDERED: FUROSEMIDE 80 MG TABLET PO SCH (09:00)
[2018-12-17] MEDS ORDERED: INSULIN DEGLUDEC 10 UNIT SQ SCH (09:00)
[2018-12-17] MEDS ORDERED: ISOSORBIDE MONONITRATE 30 MG TAB.XL.24H PO SCH (09:00)
--- NOTE | 2018-12-17 09:14 | Nephrology Progress Note ---
Subjective Patient information: Note initiated : 12/17/18 at 9:12 am Service Date, if different from initiated Date: [] Patient: Covert,Cherelle a 62 y/o F admitted on 12/15/18 for Shortness of breath. Chief Complaint: Feeling better. Objective - Vital Signs Vital signs: Vital Signs Temp Pulse Pulse Resp BP BP BP 12/17/18 08:00 22 12/17/18 03:14 81 20 12/17/18 03:00 97.6 F 99 H 16 137/67 12/16/18 23:31 97.8 F 82 23 H 127/68 12/16/18 19:55 98.9 F 93 H 17 140/81 12/16/18 19:00 89 24 H 12/16/18 18:59 83 24 H 12/16/18 16:00 96.5 F L 97 H 22 150/89 12/16/18 15:20 99 H 16 12/16/18 13:16 97.5 F 96 H 113/67 12/16/18 13:00 96 H 120/77 12/16/18 12:50 95 H 122/83 12/16/18 12:31 97 H 124/85 12/16/18 12:15 96 H 128/87 12/16/18 12:00 94 H 138/91 12/16/18 11:52 98.6 F 96 H 20 146/88 12/16/18 11:50 93 H 146/88 12/16/18 11:33 98.7 F 91 H 138/96 12/16/18 11:30 138/96 Pulse Ox 12/17/18 08:00 12/17/18 03:14 12/17/18 03:00 94 12/16/18 23:31 92 12/16/18 19:55 90 12/16/18 19:00 90 12/16/18 18:59 12/16/18 16:00 90 12/16/18 15:20 12/16/18 13:16 12/16/18 13:00 12/16/18 12:50 12/16/18 12:31 12/16/18 12:15 12/16/18 12:00 12/16/18 11:52 92 12/16/18 11:50 12/16/18 11:33 12/16/18 11:30 Intake and Output 12/16/18 12/17/18 12/17/18 21:59 05:59 13:59 Intake Total 290 Output Total 0 Balance 290 Intake: IV 50 Zosyn 2.25 gm In Dextrose 5% in 50 Water 50 ml @ 100 mls/hr IV Q12H [facility] Rx#:[id number] Oral 240 Output: Void Amount 0 Other: Meal Dinner Percent of Meal Consumed 100% Feeding Ability Independent Stool Size Smear Stool Color Brown Stool Consistency Soft Loose # Bowel Movements 0 Weight 147 lb Intake & Output: Intake & Output 12/16/18 12/17/18 12/17/18 21:59 05:59 13:59 Intake Total 290 Output Total 0 Balance 290 Weight 147 lb Intake: IV 50 Zosyn 2.25 gm In Dextrose 5% in 50 Water 50 ml @ 100 mls/hr IV Q12H [facility] Rx#:[id number] Oral 240 Output: Void Amount 0 Other: Meal Dinner Percent of Meal Consumed 100% Feeding Ability Independent Stool Size Smear Stool Color Brown Stool Consistency Soft Loose # Bowel Movements 0 - General Appearance General appearance: well-developed EENT: ATNC Neck: JVD Respiratory: kyphosis Cardiology: no murmurs Gastrointestinal: hypoactive bowel sounds Neurologic: no focal deficit Musculoskeletal: no deformities - Lab 12/17/18 04:04 12/17/18 04:04 Most recent lab results Calcium 9.4 mg/dl (8.6-10.4) 12/17/18 04:04 Phosphorus 5.3 mg/dL (2.7-4.5) H 12/17/18 04:04 Magnesium 2.1 mg/dL (1.6-2.5) 12/17/18 04:04 Assessment and Plan (1) ESRD (end stage renal disease) on dialysis Status: Chronic Priority: Medium Comment: Will be discharged and will have dialysis as outpatient.
[2018-12-17] MEDS: PIPERACILLIN SODIUM/TAZOBACTAM 2.25 GM in DEXTROSE 5% IN WATER 50 ML IV SCH (11:01)
[2018-12-17] MEDS ORDERED: IPRATROPIUM/ALBUTEROL 3 ML AMPUL.NEB NEB SCH (13:00)
[2018-12-22] MEDS ORDERED: cloNIDine TTS 2 1 PATCH PATCH TD SCH (10:00)
== END 2018-12-17 09:20 | DRG 189 ==
LOC: ED 20:53 → ICU 12-15 01:00
PROVIDERS: ADMIT Internal Medicine; ATTEND Internal Medicine

== ENCOUNTER 2019-04-18 08:00 | Inpatient (IN) ==
[2019-04-18] MEDS ORDERED: IPRATROPIUM/ALBUTEROL 3 ML AMPUL.NEB NEB ONE ×2 (08:03→08:45)
--- NOTE | 2019-04-18 08:08 | Emergency Department Note ---
Nausea/Vomiting/Diarrhea HPI - General Chief complaint: Nausea/Vomiting/Diarrhea Stated complaint: N/V; SOB Time Seen by Provider: 04/18/19 08:07 Mode of arrival: EMS - History of Present Illness HPI Narrative: This is a dialysis patient Dr. Tafoya she has been feeling short of breath and wheezing and having some nausea and vomiting. She is supposed to have dialysis today in [place] but is not making it. No abdominal pain or chest pain. - Related Data Home Medications Medication Instructions Recorded Confirmed Citalopram Hydrobromide [Celexa] 20 mg PO DAILY 07/11/15 04/18/19 Aspirin [Aspirin EC] 81 mg PO DAILY 07/18/18 04/18/19 Clopidogrel Bisulfate [Plavix] 75 mg PO DAILY 07/18/18 04/18/19 amLODIPine [Norvasc] 10 mg PO MOWEFR@0500 09/20/18 04/18/19 cloNIDine [Catapres-Tts 2] 1 patch TOPICAL FR@0900 09/20/18 04/18/19 Metoprolol Tartrate [Lopressor] 25 mg PO MOWEFR@0500 11/05/18 04/18/19 Anoro Ellipta 1 puff INH DAILY 04/18/19 04/18/19 [Umeclidinium-Vilanterol 62.5-25 Mcg/Inh] Calcium Acetate [Phoslo] 667 mg PO TIDCC 04/18/19 04/18/19 Dextran 70/Hypromellose 1 gtt OU TID 04/18/19 04/18/19 [Artificial Tears] Famotidine [Heartburn Prevention] 20 mg PO DAILY 04/18/19 04/18/19 Ipratropium/Albuterol [Duoneb] 3 ml NEB Q6H 04/18/19 04/18/19 L.acidoph,Paracasei, B.lactis 1 cap PO BIDCC 04/18/19 04/18/19 [Probiotic] Lidocaine [Aspercreme] 1 patch TOPICAL DAILY 04/18/19 04/18/19 Megestrol Acetate [Megace] 400 mg PO BID 04/18/19 04/18/19 Melatonin [Melatin] 3 mg PO HS 04/18/19 04/18/19 Metoprolol Tartrate [Lopressor] 25 mg PO SUTUTHSA@0730 04/18/19 04/18/19 Pantoprazole [Protonix] 40 mg PO QAMAC 04/18/19 04/18/19 Polyethylene Glycol 3350 [Miralax] 17 gm PO DAILY 04/18/19 04/18/19 Sennosides [Senna] 8.6 mg PO DAILY 04/18/19 04/18/19 Tiotropium [place] [Spiriva] 18 mcg INH DAILY 04/18/19 04/18/19 amLODIPine [Norvasc] 10 mg PO SUTUTHSA@0730 04/18/19 04/18/19 Ondansetron HCl [Zofran] 4 mg PO Q6HP PRN 04/19/19 04/19/19 Simethicone [Mylicon] 80 mg CHEWED DAILYP PRN 04/19/19 04/19/19 traZODone HCL [Desyrel] 50 mg PO HSP PRN 04/19/19 04/19/19 Previous Rx's Medication Instructions Recorded predniSONE [Prednisone] [address] [facility] #1 tab 04/20/19 Allergies Allergy/AdvReac Type Severity Reaction Status Date / Time adhesive tape Allergy Mild Rash Verified 12/29/18 11:34 iodine Allergy Mild Rash Verified 12/29/18 11:34 Sulfa (Sulfonamide Allergy Mild Rash Verified 12/29/18 11:34 Antibiotics) sucralfate [From Carafate] Allergy Unknown Unknown Verified 12/29/18 11:34 Review of Systems All systems ED: reviewed and negative except as stated. Past Medical History - Past Medical History [facility] Narrative: Medical History (Last Updated 12/15/18 @ 10:55 by Bhargav Gan DO) DNR (do not resuscitate) (Chronic) Chronic anticoagulation (Chronic) CAD (coronary artery disease) (Chronic) History of cervical cancer (Chronic) Chest pain (Acute) Congestive heart failure (Acute) Shortness of Breath (Acute) Acute hypercapnic respiratory failure (Acute) ESRD (end stage renal disease) on dialysis (Chronic) Fluid overload (Acute) Anemia of chronic disease (Chronic) HTN (hypertension) (Chronic) Past Surgical History (Last Updated 11/05/18 @ 12:09 by Bhargav Gan DO) S/P coronary artery stent placement (Acute) S/P hysterectomy with oophorectomy (Acute) Medical history: Reports: arthritis, chronic narcotics, COPD, CAD (coronary artery disease), DM, GI bleed, hypertension, osteoporosis, renal disease (On dialysis) Psychiatric history: Reports: anxiety, depression, PTSD - Social History smoking status: Current every day smoker Alcohol use: Reports: None Drug use: Reports: none, marijuana (occas) Physical Exam Limitations: no limitations General appearance: alert Head: atraumatic Eye: Present: normal appearance ENT: Present: normal exam Neck: Present: normal inspection Chest: Present: normal inspection Respiratory: Present: rales/crackles, wheezes Cardiovascular: Present: regular rate, normal rhythm, normal heart sounds Abdominal: Present: soft. Absent: distention, tenderness Neurological: Present: alert Psychiatric: Present: normal affect Skin: Present: warm, dry Course Vital Signs Temperature 99.2 F H 04/18/19 08:06 Pulse Rate 71 04/18/19 08:06 Respiratory Rate 28 H 04/18/19 08:06 Blood Pressure 109/70 04/18/19 08:06 Pulse Oximetry (%) 84 L 04/18/19 08:06 Temperature 97.8 F 04/20/19 08:01 Pulse Rate 74 04/20/19 09:09 Respiratory Rate 20 04/20/19 09:09 Blood Pressure 156/82 04/20/19 09:01 Pulse Oximetry (%) 94 04/20/19 09:01 Nausea/Vomiting/Diarrhea - [facility] Narrative Medical decision making narrative: I signed this patient out to Dr. Sanchez at change of shift. - Lab Data Result diagrams: 04/19/19 04:00 04/20/19 04:00 Lab Results 04/18/19 04/18/19 04/18/19 Range/Units 08:32 08:32 08:32 WBC 6.9 (4.5-11.0) K/mcL RBC 3.23 L (4.00-5.20) M/mcL Hgb 9.6 L (12.0-15.0) g/dL Hct 29.7 L (36.0-48.0) % MCV 92.0 (80.0-100.0) fL MCH 29.8 (26.0-34.0) pg MCHC 32.3 (31.0-36.0) g/dL RDW 16.9 H (11.5-14.5) % Plt Count 285 (140-440) K/mcL MPV 7.0 L (7.4-10.4) fL Gran % 56.6 (38.0-78.0) % Lymph % (Auto) 20.3 (15.5-49.0) % White % (Auto) 12.9 H (1.0-12.0) % Eos % (Auto) 9.0 H (0.0-7.0) % Baso % (Auto) 1.2 (0.0-2.0) % Gran # 3.9 (1.8-8.0) K/mcL Lymph # (Auto) 1.4 L (1.5-4.8) K/mcL White # (Auto) 0.9 (0.1-0.9) K/mcL Eos # (Auto) 0.6 (0.0-0.7) K/mcL Baso # (Auto) 0.1 (0.0-0.3) K/mcL VBG Lactic Acid (0.5-2.0) mmol/L Sodium 137 (133-145) mmol/L Potassium 5.4 H (3.3-5.1) mmol/L Chloride 92 L (96-108) mmol/L Carbon Dioxide 26 (22-30) mmol/L Anion Gap 19.0 H (8-16) BUN 47 H (8-23) mg/dl Creatinine 6.3 H* (0.6-1.1) mg/dl GFR Calculation 6 Glucose 146 H (70-105) mg/dL Calcium 8.6 (8.6-10.4) mg/dl Total Bilirubin 0.2 (0.0-1.0) mg/dL AST 16 (0-37) U/l ALT 8 (0-40) U/l Alkaline Phosphatase 215 H (39-117) U/L Troponin T (0-0.03) ng/ml NT-Pro-B Natriuret Pep 03619.0 H (0-125) pg/ml Total Protein 6.8 (5.9-8.4) gm/dL Albumin 4.2 (3.2-5.2) gm/dL Globulin 2.6 (2.2-3.7) gm/dL Albumin/Globulin Ratio 1.6 (1.0-2.3) Procalcitonin (<0.10) ng/mL 04/18/19 04/18/19 04/18/19 Range/Units 08:32 08:32 09:38 WBC (4.5-11.0) K/mcL RBC (4.00-5.20) M/mcL Hgb (12.0-15.0) g/dL Hct (36.0-48.0) % MCV (80.0-100.0) fL MCH (26.0-34.0) pg MCHC (31.0-36.0) g/dL RDW (11.5-14.5) % Plt Count (140-440) K/mcL MPV (7.4-10.4) fL Gran % (38.0-78.0) % Lymph % (Auto) (15.5-49.0) % White % (Auto) (1.0-12.0) % Eos % (Auto) (0.0-7.0) % Baso % (Auto) (0.0-2.0) % Gran # (1.8-8.0) K/mcL Lymph # (Auto) (1.5-4.8) K/mcL White # (Auto) (0.1-0.9) K/mcL Eos # (Auto) (0.0-0.7) K/mcL Baso # (Auto) (0.0-0.3) K/mcL VBG Lactic Acid 1.3 (0.5-2.0) mmol/L Sodium (133-145) mmol/L Potassium (3.3-5.1) mmol/L Chloride (96-108) mmol/L Carbon Dioxide (22-30) mmol/L Anion Gap (8-16) BUN (8-23) mg/dl Creatinine (0.6-1.1) mg/dl GFR Calculation Glucose (70-105) mg/dL Calcium (8.6-10.4) mg/dl Total Bilirubin (0.0-1.0) mg/dL AST (0-37) U/l ALT (0-40) U/l Alkaline Phosphatase (39-117) U/L Troponin T 0.33 H* (0-0.03) ng/ml NT-Pro-B Natriuret Pep (0-125) pg/ml Total Protein (5.9-8.4) gm/dL Albumin (3.2-5.2) gm/dL Globulin (2.2-3.7) gm/dL Albumin/Globulin Ratio (1.0-2.3) Procalcitonin 0.55 (<0.10) ng/mL Disposition Pt seen by LASERIST/PA only: No Clinical Impression: Acute exacerbation of chronic obstructive airways disease, DNR (do not resuscitate), ESRD (end stage renal disease) on dialysis, Respiratory acidosis Congestive heart failure Qualifiers: Heart failure type: unspecified Heart failure chronicity: unspecified Qualified Code(s): I50.9 - Heart failure, unspecified Respiratory failure with hypoxia and hypercapnia Qualifiers: Chronicity: acute Qualified Code(s): J96.01 - Acute respiratory failure with hypoxia Disposition: Xfer As Inpt ([facility]) Condition: Undetermined
[2019-04-18] MEDS ORDERED: methylPREDNISolone SOD SUCC 125 MG/2 ML VIAL IV ONE (08:45)
--- NOTE | 2019-04-18 09:12 | XRay Report ---
CLINICAL INFORMATION: SOB; hx COPD. COMPARISON: 03/02/2019 chest x-ray and chest CT 02/02/2019 FINDINGS: Mild cardiomegaly show slight increase. Left IJ double-lumen catheter tip remains in stable satisfactory position overlying the SVC /right atrial junction. The central pulmonary arteries are enlarged compatible with pulmonary hypertension related to COPD. Diffuse interstitial disease throughout both lungs is most compatible with moderate diffuse interstitial fibrosis. This was also seen on the chest CT over two months prior 02/02/2019. Mild patchy airspace disease in both mid and lower lungs is unchanged. Given the stability, it is presumably fibrosis or slowly resolving infiltrate. There are no effusions. IMPRESSION: Moderate COPD and diffuse interstitial fibrosis - stable. Mild patchy superimposed airspace disease in both mid and lower lungs is unchanged. This either represents unresolved infiltrate or superimposed fibrosis Enlargement central pulmonary arteries compatible with pulmonary hypertension related COPD stable Interpreted and Authenticated by: Joe Centeno 04/18/19
[2019-04-18] MEDS ORDERED: ALBUTEROL SULFATE 2.5 MG/3 ML NEBULIZER NEB ONE (09:22)
[2019-04-18] MEDS ORDERED: AZITHROMYCIN 500 MG in DEXTROSE 5% IN WATER 250 ML IV ONE (09:22)
[2019-04-18 09:26] LABS: Basophils # (Auto) 0.1 K/mcL (0.0-0.3); Basophils % (Auto) 1.2 % (0.0-2.0); Eosinophils # (Auto) 0.6 K/mcL (0.0-0.7); Granulocytes % (Auto) 56.6 % (38.0-78.0); Hematocrit 29.7 % (36.0-48.0); Hemoglobin 9.6 g/dL (12.0-15.0); Lymphocytes # (Auto) 1.4 K/mcL (1.5-4.8); Lymphocytes % (Auto) 20.3 % (15.5-49.0); Mean Corpuscular HGB Conc 32.3 g/dL (31.0-36.0); Monocytes # (Auto) 0.9 K/mcL (0.1-0.9); Monocytes % (Auto) 12.9 % (1.0-12.0); Platelet Count 285 K/mcL (140-440); RBC 3.23 M/mcL (4.00-5.20); Red Cell Distribution Width 16.9 % (11.5-14.5); WBC 6.9 K/mcL (4.5-11.0)
--- NOTE | 2019-04-18 09:28 | Emergency Department Note ---
General Adult HPI - General Chief complaint: Nausea/Vomiting/Diarrhea Stated complaint: N/V; SOB Time Seen by Provider: 04/18/19 08:07 Source: patient, EMS Mode of arrival: EMS Limitations: no limitations - History of Present Illness HPI Narrative: 63-year-old female comes in for difficulty breathing. She was scheduled get dialysis today in [place] with Dr. Tafoya but could not make it. She is been sick for the last several days with trouble breathing nausea vomiting. She has known COPD CHF and history of CAD I received this patient in checkout from Dr. dooley at shift change. I reviewed his note. I promptly reevaluated the patient because of her shortness of breath and need for oxygen Patient is DNR and does not want BiPAP - Related Data Home Medications Medication Instructions Recorded Confirmed Citalopram Hydrobromide [Celexa] 20 mg PO DAILY 07/11/15 12/14/18 Furosemide [Lasix] 80 mg PO DAILY 07/11/15 12/14/18 Gabapentin [Neurontin] 300 mg PO DAILY 07/11/15 12/14/18 QUEtiapine FUMARATE [Seroquel] 100 mg PO DAILY 07/11/15 12/14/18 Ascorbic Acid [Vitamin C] 250 mg PO BID 07/18/18 12/14/18 Aspirin [Aspirin EC] 81 mg PO DAILY 07/18/18 12/14/18 Clopidogrel Bisulfate [Plavix] 75 mg PO DAILY 07/18/18 12/14/18 Isosorbide Mononitrate [Imdur] 30 mg PO DAILY 07/18/18 12/14/18 Alendronate Sodium [Fosamax] 70 mg PO WEEKLY 09/20/18 12/14/18 Folic Acid/Vit Bcomp,C [Super 1 mg PO DAILY 09/20/18 12/14/18 B-Complex Folic-Vit C Tb] Vitamin D3 5,000 unit PO DAILY 09/20/18 12/14/18 amLODIPine [Norvasc] 10 mg PO HS 09/20/18 12/14/18 cloNIDine [Catapres-Tts 2] 1 patch TOPICAL WEEKLY 09/20/18 12/14/18 Albuterol Sulfate 2.5 mg INH Q2HP PRN 09/22/18 12/14/18 Budesonide 0.5 mg INH BID 09/22/18 12/14/18 Docusate Sodium [Dulcoease] 100 mg PO BID 09/22/18 12/14/18 Lactulose 30 ml PO PRN PRN 09/22/18 12/14/18 Melatonin 3 mg PO HS PRN 09/22/18 12/14/18 Pantoprazole 40 mg PO BID 09/22/18 12/14/18 Acetaminophen [Tylenol] 1 - 2 tab PO Q4HP PRN 11/05/18 12/14/18 Benzonatate [Tessalon] 100 mg PO TIDP PRN 11/05/18 12/14/18 Bisacodyl [Dulcolax] 10 mg PO DAILYP PRN 11/05/18 12/14/18 Dextran 70/Hypromellose 1 each OP BIDP PRN 11/05/18 12/14/18 [Artificial Tears] Glucagon HCl 1 mg IJ DAILYP PRN 11/05/18 12/14/18 Insulin Lispro [Admelog] 100 unit SQ ACHS 11/05/18 12/14/18 Ipratropium/Albuterol Sulfate 3 ml IH QID 11/05/18 12/14/18 [Iprat-Albut 0.5-3(2.5) mg/3 ml] Metoprolol Tartrate [Lopressor] 25 mg PO BID 11/05/18 12/14/18 Na Phos,M-B/Na Phos,Di-Ba [Fleets 1 dose [place] DAILYP PRN 11/05/18 12/14/18 Adult] Nitroglycerin [Nitrostat] 0.4 mg SL Q5M PRN 11/05/18 12/14/18 Nut.tx.impaired Renal Fxn,Soy 237 ml PO DAILY 11/05/18 12/14/18 [Nepro] Insulin Degludec [Tresiba] 10 unit SQ DAILY 12/14/18 12/14/18 Previous Rx's Medication Instructions Recorded Amoxicillin/Potassium Clav 875 mg PO Q12H #10 tab 12/17/18 [Augmentin] HYDROcodone/APAP 5/325MG [[place] 1 tab PO Q6HP PRN #10 tab 12/17/18 5-325Mg] predniSONE [Prednisone] 40 mg PO QAMCC #5 tab 12/17/18 Allergies Allergy/AdvReac Type Severity Reaction Status Date / Time adhesive tape Allergy Mild Rash Verified 12/29/18 11:34 iodine Allergy Mild Rash Verified 12/29/18 11:34 Sulfa (Sulfonamide Allergy Mild Rash Verified 12/29/18 11:34 Antibiotics) sucralfate [From Carafate] Allergy Unknown Unknown Verified 12/29/18 11:34 Review of Systems All systems ED: reviewed and negative except as stated. Past Medical History - Past Medical History Attestation: Yes: The following information was validated with the patient. [facility] Narrative: Medical History (Last Updated 12/15/18 @ 10:55 by Bhargav Gan DO) DNR (do not resuscitate) (Chronic) Chronic anticoagulation (Chronic) CAD (coronary artery disease) (Chronic) History of cervical cancer (Chronic) Chest pain (Acute) Congestive heart failure (Acute) Shortness of Breath (Acute) Acute hypercapnic respiratory failure (Acute) ESRD (end stage renal disease) on dialysis (Chronic) Fluid overload (Acute) Anemia of chronic disease (Chronic) HTN (hypertension) (Chronic) Past Surgical History (Last Updated 11/05/18 @ 12:09 by Bhargav Gan DO) S/P coronary artery stent placement (Acute) S/P hysterectomy with oophorectomy (Acute) Medical history: Reports: arthritis, CAD (coronary artery disease), CHF, chronic narcotics, COPD, DM, GI bleed, hypertension, osteoporosis, renal disease (On dialysis) Psychiatric history: Reports: anxiety, depression, PTSD - Social History smoking status: Current every day smoker Alcohol use: Reports: None Drug use: Reports: none, marijuana (occas) Physical Exam She is somnolent but easily arousable. Mild proptosis. Oxygen on mask still saturating in the high 80s-I turned this up. Lungs with rhonchi wheezes in all lung tse. I do not hear rales. Dialysis catheters left upper chest. Hands and face do not appear cyanotic Limitations: no limitations General appearance: alert Course Vital Signs Temperature 99.2 F H 04/18/19 08:06 Pulse Rate 71 04/18/19 08:06 Respiratory Rate 28 H 04/18/19 08:06 Blood Pressure 109/70 04/18/19 08:06 Pulse Oximetry (%) 84 L 04/18/19 08:06 Temperature 99.2 F H 04/18/19 08:06 Pulse Rate 67 09/23/19 12:46 Respiratory Rate 18 04/18/19 12:46 Blood Pressure 132/81 04/18/19 12:46 Pulse Oximetry (%) 88 L 04/18/19 12:46 Medical Decision Making - Lab Data Lab results reviewed: Yes I reviewed the patient's lab results. Result diagrams: 04/18/19 08:32 04/18/19 08:32 Lab Results 04/18/19 04/18/19 04/18/19 Range/Units 08:32 08:32 08:32 WBC 6.9 (4.5-11.0) K/mcL RBC 3.23 L (4.00-5.20) M/mcL Hgb 9.6 L (12.0-15.0) g/dL Hct 29.7 L (36.0-48.0) % MCV 92.0 (80.0-100.0) fL MCH 29.8 (26.0-34.0) pg MCHC 32.3 (31.0-36.0) g/dL RDW 16.9 H (11.5-14.5) % Plt Count 285 (140-440) K/mcL MPV 7.0 L (7.4-10.4) fL Gran % 56.6 (38.0-78.0) % Lymph % (Auto) 20.3 (15.5-49.0) % Ponce % (Auto) 12.9 H (1.0-12.0) % Eos % (Auto) 9.0 H (0.0-7.0) % Baso % (Auto) 1.2 (0.0-2.0) % Gran # 3.9 (1.8-8.0) K/mcL Lymph # (Auto) 1.4 L (1.5-4.8) K/mcL Ponce # (Auto) 0.9 (0.1-0.9) K/mcL Eos # (Auto) 0.6 (0.0-0.7) K/mcL Baso # (Auto) 0.1 (0.0-0.3) K/mcL VBG Lactic Acid (0.5-2.0) mmol/L Sodium 137 (133-145) mmol/L Potassium 5.4 H (3.3-5.1) mmol/L Chloride 92 L (96-108) mmol/L Carbon Dioxide 26 (22-30) mmol/L Anion Gap 19.0 H (8-16) BUN 47 H (8-23) mg/dl Creatinine 6.3 H* (0.6-1.1) mg/dl GFR Calculation 6 Glucose 146 H (70-105) mg/dL Calcium 8.6 (8.6-10.4) mg/dl Total Bilirubin 0.2 (0.0-1.0) mg/dL AST 16 (0-37) U/l ALT 8 (0-40) U/l Alkaline Phosphatase 215 H (39-117) U/L Troponin T (0-0.03) ng/ml NT-Pro-B Natriuret Pep 05974.0 H (0-125) pg/ml Total Protein 6.8 (5.9-8.4) gm/dL Albumin 4.2 (3.2-5.2) gm/dL Globulin 2.6 (2.2-3.7) gm/dL Albumin/Globulin Ratio 1.6 (1.0-2.3) Procalcitonin (<0.10) ng/mL 04/18/19 04/18/19 04/18/19 Range/Units 08:32 08:32 09:38 WBC (4.5-11.0) K/mcL RBC (4.00-5.20) M/mcL Hgb (12.0-15.0) g/dL Hct (36.0-48.0) % MCV (80.0-100.0) fL MCH (26.0-34.0) pg MCHC (31.0-36.0) g/dL RDW (11.5-14.5) % Plt Count (140-440) K/mcL MPV (7.4-10.4) fL Gran % (38.0-78.0) % Lymph % (Auto) (15.5-49.0) % Ponce % (Auto) (1.0-12.0) % Eos % (Auto) (0.0-7.0) % Baso % (Auto) (0.0-2.0) % Gran # (1.8-8.0) K/mcL Lymph # (Auto) (1.5-4.8) K/mcL Ponce # (Auto) (0.1-0.9) K/mcL Eos # (Auto) (0.0-0.7) K/mcL Baso # (Auto) (0.0-0.3) K/mcL VBG Lactic Acid 1.3 (0.5-2.0) mmol/L Sodium (133-145) mmol/L Potassium (3.3-5.1) mmol/L Chloride (96-108) mmol/L Carbon Dioxide (22-30) mmol/L Anion Gap (8-16) BUN (8-23) mg/dl Creatinine (0.6-1.1) mg/dl GFR Calculation Glucose (70-105) mg/dL Calcium (8.6-10.4) mg/dl Total Bilirubin (0.0-1.0) mg/dL AST (0-37) U/l ALT (0-40) U/l Alkaline Phosphatase (39-117) U/L Troponin T 0.33 H* (0-0.03) ng/ml NT-Pro-B Natriuret Pep (0-125) pg/ml Total Protein (5.9-8.4) gm/dL Albumin (3.2-5.2) gm/dL Globulin (2.2-3.7) gm/dL Albumin/Globulin Ratio (1.0-2.3) Procalcitonin 0.55 (<0.10) ng/mL ABG shows a pH of 7.26 PCO2 58 PO2 of 72 on 7 L mask oxygen - Radiology Data Radiology results reviewed: Yes I reviewed the patient's radiology results. Chest x-ray shows stigmata of COPD and fibrosis. Possible fluid overload versus infiltrate - EKG Data EKG #1 EKG attestation: Yes I reviewed and interpreted this EKG., Yes There are no EKG findings of acute coronary syndrome, Yes This EKG will be read by delinquency counselor EKG results narrative: EKG shows right axis deviation nonspecific T wave abnormalities inferior leads long QT. Sinus rhythm with a rate of 69. No change compared to 03/01/2019 Critical Care Time Critical Care Time: Yes Total Critical Care Time: 30 Attestation: Approximately 30 minutes critical care time in addition to initial evaluation and management time. This includes care coordination, discussion with family, reviewing studies, document and bedside management. I was immediately available to the patient the entire time she was in the ER Disposition Pt seen by SHEET METAL DUCT INSTALLER/PA only: No Clinical Impression: Acute exacerbation of chronic obstructive airways disease, DNR (do not resuscitate), ESRD (end stage renal disease) on dialysis, Respiratory acidosis Congestive heart failure Qualifiers: Heart failure type: unspecified Heart failure chronicity: unspecified Qualified Code(s): I50.9 - Heart failure, unspecified Respiratory failure with hypoxia and hypercapnia Qualifiers: Chronicity: acute Qualified Code(s): J96.01 - Acute respiratory failure with hypoxia Summary: Wrote more orders for ABG third breathing treatment. More labs ordered. Start blood cultures and antibiotics. Chest x-ray shows fluid overload so hesitant to use fluids for low blood pressure. Early pressors ABG shows respiratory failure with acidosis with hypoxia and hypercapnia. Patient declines BiPAP secondary to claustrophobia. Advised patient that we would need to send her to [facility] because of her need for dialysis and cardiac care. She would like us to discuss the situation with her daughter as she DNR Discussed the situation with her daughter Megan per patient request. She will come in and discuss with her mother After discussion with the daughter and mother patient agreed to try BiPAP. They do not want to go to [facility]-in fact troponin appears to be chronic and her EKG is unchanged and she does not have chest pain. I discussed the case with Dr. Tafoya, her laundry aid who agreed to come in and do dialysis for her. I discussed the situation with our hospitalist Dr. Baldwin, as well who agreed to admit the patient for further care and evaluation in the hospital Disposition: Xfer As Inpt ([facility]) Condition: Fair Referrals: Leta Araujo MD [Primary Care Provider] -
[2019-04-18] MEDS ORDERED: cefTRIAXone 1 GM in DEXTROSE 5% IN WATER 50 ML IV SCH ×2 (09:30→15:57)
[2019-04-18 09:54] LABS: ALT/SGPT 8 U/l (0-40); AST/SGOT 16 U/l (0-37); Albumin 4.2 gm/dL (3.2-5.2); Albumin/Globulin Ratio 1.6 (1.0-2.3); Alkaline Phosphatase 215 U/L (39-117); Bilirubin,Total 0.2 mg/dL (0.0-1.0); Blood Urea Nitrogen 47 mg/dl (8-23); Calcium 8.6 mg/dl (8.6-10.4); Carbon Dioxide 26 mmol/L (22-30); Chloride 92 mmol/L (96-108); Globulin 2.6 gm/dL (2.2-3.7); Glomerular Filtration Rate 6; Glucose 146 mg/dL (70-105)
--- NOTE | 2019-04-18 14:21 | Internal Med History&Physical ---
Medical - H&P: HPI Patient information: Note initiated : 04/18/19 at 2:12 pm Service Date, if different from initiated Date: [] Patient: Cherelle Mcpherson 63 y/o F admitted on for N/V; SOB. Chief Complaint: [] History of present illness: Ms. Mcpherson is a 63 year old F History of taken from daughter as well as the patient as patient is a poor historian and has poor short-term memory. Remembers waking up yesterday morning feeling short of breath which wax and wane throughout the day. Per her daughter she just been off the entire weekend very lethargic and weak. She has some nausea vomiting the other day. Per her son she passed out on them several times this morning before dialysis She denies any wheezing or fever chills. No headache. Her memory is significantly decline over the past months to year. Her appetite is significantly decreased over the past 6 months. He supposed adhere to dysphasia diet and had problems with aspiration pneumonia, but she will let not adhere to a dysphasia diet She did receive some breathing treatments which she says helped her symptoms. In the ER she was hypoxic and subsequently needed to be placed on BiPAP. She was acidotic at 7.26 pH with CO2 of 58 and a PaO2 of 72 on oxygen supplementation. chest x-ray shows moderate COPD and diffuse interstitial fibrosis which appears stable there is airspace disease in both mid and lower lungs that was unchanged from a month and a half ago. She has a chronic cough which is not changed. She was supposed to undergo dialysis today but because of the acute decline patient came to the ER instead. Patient is a DNI and initially refused BiPAP but after discussion with patient and daughter daughter talking to her she excepted BiPAP. Review of Systems: Pertinent positives as above. Denies headache/fever/chills/chest pain/diarrhea. Remaining 10 point review of systems reviewed and negative Medical - H&P: PM Medical history: Medical History Chest pain (Acute) Congestive heart failure (Acute) Shortness of Breath (Acute) Acute hypercapnic respiratory failure (Acute) ESRD (end stage renal disease) on dialysis (Chronic) Fluid overload (Acute) Anemia of chronic disease (Chronic) HTN (hypertension) (Chronic) Past Surgical History (Last Updated 11/05/18 @ 12:09 by Bhargav Gan DO) S/P coronary artery stent placement (Acute) S/P hysterectomy with oophorectomy (Acute) Includes left fibula fracture repair. cholecystectomy, total abdominal hysterectomy with bilateral salpingo-oophorectomy, tonsillectomy, appendectomy, hemorrhoidectomy, cataracts, esophageal dilation. Family history: Mother had CAD and CHF. Father had TB of a motor vehicle accident 49. Social history: -Patient continues to smoke 1/2ppd -[facility]ides at a [facility] facility -Multiple hospitalizations over the past 12 months Medical - H&P: Meds Home Medications Medication Instructions Recorded Confirmed Type Citalopram Hydrobromide [Celexa] 20 mg PO DAILY 07/11/15 12/14/18 History Furosemide [Lasix] 80 mg PO DAILY 07/11/15 12/14/18 History Gabapentin [Neurontin] 300 mg PO DAILY 07/11/15 12/14/18 History QUEtiapine FUMARATE [Seroquel] 100 mg PO DAILY 07/11/15 12/14/18 History Ascorbic Acid [Vitamin C] 250 mg PO BID 07/18/18 12/14/18 History Aspirin [Aspirin EC] 81 mg PO DAILY 07/18/18 12/14/18 History Clopidogrel Bisulfate [Plavix] 75 mg PO DAILY 07/18/18 12/14/18 History Isosorbide Mononitrate [Imdur] 30 mg PO DAILY 07/18/18 12/14/18 History Alendronate Sodium [Fosamax] 70 mg PO WEEKLY 09/20/18 12/14/18 History Folic Acid/Vit Bcomp,C [Super 1 mg PO DAILY 09/20/18 12/14/18 History B-Complex Folic-Vit C Tb] Vitamin D3 5,000 unit PO DAILY 09/20/18 12/14/18 History amLODIPine [Norvasc] 10 mg PO HS 09/20/18 12/14/18 History cloNIDine [Catapres-Tts 2] 1 patch TOPICAL WEEKLY 09/20/18 12/14/18 History Albuterol Sulfate 2.5 mg INH Q2HP PRN 09/22/18 12/14/18 History Budesonide 0.5 mg INH BID 09/22/18 12/14/18 History Docusate Sodium [Dulcoease] 100 mg PO BID 09/22/18 12/14/18 History Lactulose 30 ml PO PRN PRN 09/22/18 12/14/18 History Melatonin 3 mg PO HS PRN 09/22/18 12/14/18 History Pantoprazole 40 mg PO BID 09/22/18 12/14/18 History Acetaminophen [Tylenol] 1 - 2 tab PO Q4HP PRN 11/05/18 12/14/18 History Benzonatate [Tessalon] 100 mg PO TIDP PRN 11/05/18 12/14/18 History Bisacodyl [Dulcolax] 10 mg PO DAILYP PRN 11/05/18 12/14/18 History Dextran 70/Hypromellose 1 each OP BIDP PRN 11/05/18 12/14/18 History [Artificial Tears] Glucagon HCl 1 mg IJ DAILYP PRN 11/05/18 12/14/18 History Insulin Lispro [Admelog] 100 unit SQ ACHS 11/05/18 12/14/18 History Ipratropium/Albuterol Sulfate 3 ml IH QID 11/05/18 12/14/18 History [Iprat-Albut 0.5-3(2.5) mg/3 ml] Metoprolol Tartrate [Lopressor] 25 mg PO BID 11/05/18 12/14/18 History Na Phos,M-B/Na Phos,Di-Ba [Fleets 1 dose [place] DAILYP PRN 11/05/18 12/14/18 History Adult] Nitroglycerin [Nitrostat] 0.4 mg SL Q5M PRN 11/05/18 12/14/18 History Nut.tx.impaired Renal Fxn,Soy 237 ml PO DAILY 11/05/18 12/14/18 History [Nepro] Insulin Degludec [Tresiba] 10 unit SQ DAILY 12/14/18 12/14/18 History Amoxicillin/Potassium Clav 875 mg PO Q12H #10 tab 12/17/18 Rx [Augmentin] HYDROcodone/APAP 5/325MG [[place] 1 tab PO Q6HP PRN #10 tab 12/17/18 Rx 5-325Mg] predniSONE [Prednisone] 40 mg PO QAMCC #5 tab 12/17/18 Rx Allergies Allergy/AdvReac Type Severity Reaction Status Date / Time adhesive tape Allergy Mild Rash Verified 12/29/18 11:34 iodine Allergy Mild Rash Verified 12/29/18 11:34 Sulfa (Sulfonamide Allergy Mild Rash Verified 12/29/18 11:34 Antibiotics) sucralfate [From Carafate] Allergy Unknown Unknown Verified 12/29/18 11:34 Medical - H&P: Exam - Constitutional Vitals: Temp Pulse Resp BP Pulse Ox 99.2 F H 71 19 123/79 92 04/18/19 08:06 04/18/19 14:01 04/18/19 14:01 04/18/19 14:01 04/18/19 14:01 Exam: General: Alert, Awake, mild respiratory distress Eyes/N/T: EOMI, PEERL, Head/Neck: neck supple, normocephalic atraumatic CV: RRR, No murmurs, normal s1/s2 Pulm: Bilateral expiratory wheezing, mildly diminished, no rales Abd: soft, nontender, +BS x4 Ext: no clubbing/cyanosis/edema Neuro: Alert, no focal deficits, moves all extremities, CN 2-12 grossly intact, symmetrical strength b/l upper/lower, sensations intact b/l upper/lower Skin: warm/dry Medical - H&P: Reslt - Labs CBC & Chem 7: 04/18/19 08:32 04/18/19 08:32 Labs: Short CBC 04/18/19 Range/Units 08:32 WBC 6.9 (4.5-11.0) K/mcL Hgb 9.6 L (12.0-15.0) g/dL Hct 29.7 L (36.0-48.0) % Plt Count 285 (140-440) K/mcL BMP 04/18/19 08:32 Sodium 137 Potassium 5.4 H Chloride 92 L Carbon Dioxide 26 BUN 47 H Creatinine 6.3 H* Glucose 146 H Calcium 8.6 Cardiac Enzymes 04/18/19 Range/Units 08:32 Troponin T 0.33 H* (0-0.03) ng/ml Liver Function 04/18/19 Range/Units 08:32 Total Bilirubin 0.2 (0.0-1.0) mg/dL AST 16 (0-37) U/l ALT 8 (0-40) U/l Alkaline Phosphatase 215 H (39-117) U/L Albumin 4.2 (3.2-5.2) gm/dL - Impressions Chest x-ray with chronic changes COPD nothing acute Medical - H&P: A/P - Narrative A/P Narrative: A: *Acute on chronic hypoxic/hypercapnic respiratory failure: 2/2 AECOPD/pulm fi brosis/probable PNA *AECOPD(3L NC@SNF): *possible Pneumonia (has had multiple hospitalizations for same including aspiration PNA - not compliant with dysphagia diet *Pulmonary fibrosis: *ESRD: follows with [facility] *met/resp acidosis: *Anemia, chronic: *h/o dCHF: *DM: *h/o CVA's: *Vascular Dementia: *HTN/HLD: *Depression/anxiety: on sertraline and quetiapine *Tobacco abuse: *Hyperkalemia: Received dialysis morning, do not treat per Dr. Tafoya discussion with ED *Generalized weakness/deconditioning/debility/failure to thrive: *Goals of care: Poor functional status, multiple hospitalizations, decline. Daughter is POA. -no aggressive interventions, and if declines will transition towards comfort focus P: -corticosteroids (wean) -Wean bipap as able, f/u ABG -IS/Acapella, RT/nebs -Rocephin/Azithro, pending BC/SC -Dr. Tafoya for HD -cont home clonidine/norvasc/lopressor/lasix -cont ASA/Plavix - -lantus and SSI -dysphagia diet -Clarify home medications, including prednisone -pt/ot -Smoking cessation counseling -ppx: heparin/home ppi DNR/DNI, No aggressive intervention/procedures, Bipap ok.
[2019-04-18] MEDS ORDERED: PROMETHAZINE 25 MG TABLET PO PRN (15:57)
[2019-04-18] MEDS ORDERED: POTASSIUM CHLORIDE 20 MEQ TABLET PO PRN ×2 (15:57)
[2019-04-18] MEDS ORDERED: LACTULOSE 20 GM/30 ML ORAL.SOL PO PRN (15:57)
[2019-04-18] MEDS ORDERED: DEXTROSE 50% 50 ML VIAL IV PRN (15:57)
[2019-04-18] MEDS ORDERED: DEXTROSE 31 GM ORAL.SUSP PO PRN (15:57)
[2019-04-18] MEDS ORDERED: POTASSIUM CHLORIDE 40 MEQ in DEXTROSE 5% IN WATER 500 ML IV PRN (15:57)
[2019-04-18] MEDS ORDERED: IPRATROPIUM/ALBUTEROL 3 ML AMPUL.NEB NEB PRN (15:57)
[2019-04-18] MEDS ORDERED: ACETAMINOPHEN 325 MG TABLET PO PRN (15:57)
[2019-04-18] MEDS ORDERED: POLYETHYLENE GLYCOL 3350 17 GM PACKET PO PRN (15:57)
[2019-04-18] MEDS ORDERED: ONDANSETRON 4 MG/2 ML VIAL IV PRN (15:57)
[2019-04-18] MEDS ORDERED: MAGNESIUM SULFATE 2 GM/50 ML BAG IV PRN (15:57)
--- NOTE | 2019-04-18 16:56 | Consultation ---
DATE OF CONSULTATION: 04/18/2019 REFERRING PHYSICIAN: Chaitanya Baldwin D.O. REASON FOR CONSULTATION: Shortness of breath in an end-stage renal disease patient. HISTORY OF PRESENT ILLNESS: The patient is a 63-year-old female with past medical history significant for end-stage renal disease on hemodialysis, COPD, history of congestive heart failure, and chronic anemia. She presented to the emergency room with shortness of breath. She was treated this morning. She went to the dialysis unit in [place] and was found to be hypoxic. Her family members also reported that patient has been ''passing out.'' She was found to be lethargic over the weekend. For those reasons, she was sent to the emergency room. She denied any wheezing or fever or chills, but she did complain of shortness of breath. She has not been eating well and has lost significant weight in the recent months. She had some breathing treatments which really helped her. In the emergency room, she was found to be hypoxic and subsequently needed to be placed on a BiPAP. Initial pH was 7.26, pCO2 of 58 and a pO2 of 72 with oxygen supplementation. Chest x-ray showed moderate COPD with diffuse interstitial fibrosis. For these reasons, she is hospitalized. PAST MEDICAL HISTORY: 1. Chronic congestive heart failure. 2. COPD. 3. End-stage renal disease on hemodialysis. 4. Episodes of fluid overload and recurrent hospitalizations with shortness of breath. 5. Anemia of chronic kidney disease. 6. Hypertension. PAST SURGICAL HISTORY: 1. History of status post coronary artery stent placement. 2. Status post hysterectomy with oophorectomy. 3. Left fibular fracture repair. 4. Cholecystectomy. 5. Total abdominal hysterectomy with bilateral salpingo-oophorectomy. 6. Tonsillectomy. 7. Appendectomy. 8. Hemorrhoidectomy. 9. Cataracts. 10. Esophageal dilatation. FAMILY HISTORY: Mother had coronary artery disease and congestive heart failure. Father had TB and in motor vehicle accident at age 49. SOCIAL HISTORY: She continues to smoke a half a pack per day. She resides at the [facility] facility. No history of alcohol or drug use. MEDICATIONS ON ADMISSION: 1. Citalopram 20 mg daily. 2. Lasix 80 mg daily. 3. Gabapentin 300 mg daily. 4. Seroquel 100 mg daily. 5. Vitamin C 250 mg twice daily. 6. Aspirin 81 mg daily. 7. Plavix 75 mg daily. 8. Imdur 30 mg daily. 9. Alendronate sodium 70 mg once weekly. 10. Folic acid with vitamin B 1 mg once daily. 11. Vitamin D3 5000 units once daily. 12. Amlodipine 10 mg once daily. 13. Clonidine one patch weekly. 14. Albuterol 2.5 mg inhaler. 15. Budesonide 0.5 mg twice daily inhaler. 16. Colace 100 mg twice daily. 17. Lactulose 30 mL p.o. p.r.n. 18. Metoprolol 100 mg twice daily. ALLERGIES: 1. TAPE. 2. IODINE. 3. SULFA. 4. CARAFATE. REVIEW OF SYSTEMS: Ten systems were reviewed and as in history of present illness. PHYSICAL EXAMINATION: GENERAL: Alert on BiPAP. She is still short of breath. She is alert and awake. VITAL SIGNS: Blood pressures have been 120-130 systolic with a diastolic in the 70s, pulse rates have been in the 70s, respiratory rate of 19, pulse oximetry of 92% on BiPAP. HEENT: NC/AT. Pupils are reactive. External auditory canal appears normal. Oral cavity appears normal, normal mucosa. NECK: Supple. She does have about 10 cm of jugular venous distention. No lymphadenopathy. No thyromegaly. No carotid bruits. LUNGS: Decreased air entry bilaterally. Rales and rhonchi heard in both bases, both lungs tse. CARDIAC: S1 and S2. No S3, S4. She has a 2/6 systolic murmur. ABDOMEN: Soft, nontender. No organomegaly. Positive bowel sounds. No mass, no rebound. EXTREMITIES: Show 1+ edema bilaterally. Difficult to palpate dorsalis pedis and posterior tibials. No skin rash or joint swellings noted. NEURO: Appears grossly intact. LABORATORY DATA: White count is 6.9 with a hemoglobin of 9.6 and a platelet count of 285. Sodium 137, potassium 5.4, chloride of 92, CO2 26, BUN of 47 with a creatinine of 6.3. Glucose 146, alkaline phosphatase 125. BNP is 34,746. Her ABG showed a lactic acid of 1.3. IMAGING: Chest x-ray showed bilateral infiltrate consistent more with pulmonary fibrosis. ASSESSMENT AND PLAN: 1. Shortness of breath, possibly related to volume overload in the setting of chronic pulmonary fibrosis and congestive heart failure. We will dialyze her today and take out about 3500 mL of fluid as tolerated. She is somewhat frail and we cannot take too much off of her. We will try to dialyze her again tomorrow and take additional fluid off. 2. Anemia. Continue Aranesp. 3. COPD. She used to be on prednisone, and she may benefit from being on some more, and she may also need some antibiotics. Thank you Dr. Baldwin for referring this patient for consultation. I will follow with you. SILVIO:rusty Job ID: [id number] Doc ID: [id number] Nathan Tafoya MD
[2019-04-18] MEDS ORDERED: NITROGLYCERIN 0.4 MG TAB.SUBL SL ONE ×2 (16:59→17:25)
[2019-04-18] MEDS: 0.9 % SODIUM CHLORIDE 10 ML SYRINGE IV SCH ×4 (17:29→23:16)
[2019-04-18] MEDS: methylPREDNISolone SOD SUCC 125 MG/2 ML VIAL IV SCH (17:42)
[2019-04-18] MEDS: INSULIN LISPRO 1 UNIT/0.01 ML UNIT SQ SCH ×2 (17:42→21:38)
[2019-04-18] MEDS: CALCIUM ACETATE 667 MG CAPSULE PO SCH (17:52)
[2019-04-18] MEDS: LACTOBACILLUS 1 CAPSULE PO SCH (17:52)
[2019-04-18] MEDS ORDERED: VANCOMYCIN PER PHARMACY IV SCH (18:32)
[2019-04-18] MEDS ORDERED: VANCOMYCIN 1,000 MG in 0.9 % SODIUM CHLORIDE 250 ML IV ONE (19:00)
[2019-04-18] MEDS: IPRATROPIUM/ALBUTEROL 3 ML AMPUL.NEB NEB SCH (19:00)
[2019-04-18] MEDS ORDERED: SENNOSIDES 1 TABLET PO PRN (21:00)
[2019-04-18] MEDS: DOCUSATE SODIUM 100 MG CAPSULE PO SCH (21:37)
[2019-04-18] MEDS: HEPARIN 5,000 UNIT/ML VIAL SQ SCH (21:37)
[2019-04-18] MEDS: FAMOTIDINE/PF 20 MG/2 ML VIAL IV SCH (21:38)
[2019-04-18] MEDS: MELATONIN 3 MG TABLET PO SCH (22:14)
[2019-04-18] MEDS: POLYVINYL ALCOHOL OPHTH DROPS 15ML BOTTLE OU SCH (22:14)
[2019-04-18] MEDS: MUPIROCIN OINT 2% 22GM NARES SCH (22:22)
[2019-04-19] MEDS: methylPREDNISolone SOD SUCC 125 MG/2 ML VIAL IV SCH ×4 (00:08→23:44)
[2019-04-19] MEDS: IPRATROPIUM/ALBUTEROL 3 ML AMPUL.NEB NEB SCH ×4 (00:35→19:54)
[2019-04-19] MEDS: 0.9 % SODIUM CHLORIDE 10 ML SYRINGE IV SCH ×4 (05:34→20:14)
--- NOTE | 2019-04-19 06:33 | XRay Report ---
CLINICAL INFORMATION: Cough COMPARISON: 04/18/2019 FINDINGS: The heart is mildly enlarged, but unchanged. Left IJ double lumen catheter remains in stable satisfactory position. Enlargement central pulmonary arteries is compatible with pulmonary hypertension from COPD is seen as before. COPD changes and moderate diffuse interstitial fibrosis again noted. Mild patchy airspace disease in both mid and lower lungs again noted with slight worsening in the right base IMPRESSION: COPD with diffuse interstitial fibrosis. Mild patchy airspace disease both mid and lower lungs with slight worsening in the right base. This suggests superimposed infection or aspiration Interpreted and Authenticated by: Joe Centeno 04/19/19
[2019-04-19 06:41] LABS: Basophils # (Auto) 0 K/mcL (0.0-0.3); Basophils % (Auto) 0.1 % (0.0-2.0); Eosinophils # (Auto) 0 K/mcL (0.0-0.7); Eosinophils % (Auto) 0 % (0.0-7.0); Hematocrit 30.3 % (36.0-48.0); Hemoglobin 9.9 g/dL (12.0-15.0); Lymphocytes # (Auto) 0.5 K/mcL (1.5-4.8); Mean Cell Volume 93.5 fL (80.0-100.0); Mean Corpuscular HGB Conc 32.6 g/dL (31.0-36.0); Mean Platelet Volume 7.2 fL (7.4-10.4); Monocytes # (Auto) 0.1 K/mcL (0.1-0.9); Monocytes % (Auto) 2.9 % (1.0-12.0); Platelet Count 286 K/mcL (140-440); RBC 3.24 M/mcL (4.00-5.20); Red Cell Distribution Width 16.5 % (11.5-14.5); WBC 3.5 K/mcL (4.5-11.0)
[2019-04-19 07:14] LABS: ALT/SGPT 7 U/l (0-40); AST/SGOT 17 U/l (0-37); Albumin 3.9 gm/dL (3.2-5.2); Albumin/Globulin Ratio 1.4 (1.0-2.3); Alkaline Phosphatase 209 U/L (39-117); Bilirubin,Direct < 0.2 mg/dL (0.0-0.3); Bilirubin,Total 0.3 mg/dL (0.0-1.0); Blood Urea Nitrogen 19 mg/dl (8-23); Calcium 8.8 mg/dl (8.6-10.4); Carbon Dioxide 21 mmol/L (22-30); Chloride 96 mmol/L (96-108); Globulin 2.7 gm/dL (2.2-3.7); Glomerular Filtration Rate 16; Glucose 167 mg/dL (70-105); Lactate Dehydrogenase 230 U/L (94-250); Phosphorous 3.6 mg/dL (2.7-4.5); Triglycerides 100 mg/dl (<150); Uric Acid 2.8 mg/dL (2.5-8.0)
[2019-04-19] MEDS ORDERED: amLODIPine 10 MG TABLET PO SCH (07:30)
[2019-04-19] MEDS ORDERED: METOPROLOL TARTRATE 25 MG TABLET PO SCH (07:30)
--- NOTE | 2019-04-19 07:33 | Internal Med Progress Note ---
Medical - PN: Subj Patient information: Note initiated : 04/19/19 at 7:24 am Service Date, if different from initiated Date: [] Patient: Cherelle Mcpherson 63 y/o F admitted on 04/18/19 for N/V; SOB. Chief Complaint: [] Interval history: Ms. Mcpherson is a 63 year old F History of taken from daughter as well as the patient as patient is a poor historian and has poor short-term memory. Remembers waking up yesterday morning feeling short of breath which wax and wane throughout the day. Per her daughter she just been off the entire weekend very lethargic and weak. She has some nausea vomiting the other day. Per her son she passed out on them several times this morning before dialysis She denies any wheezing or fever chills. No headache. Her memory is significantly decline over the past months to year. Her appetite is significantly decreased over the past 6 months. He supposed adhere to dysphasia diet and had problems with aspiration pneumonia, but she will let not adhere to a dysphasia diet She did receive some breathing treatments which she says helped her symptoms. In the ER she was hypoxic and subsequently needed to be placed on BiPAP. She was acidotic at 7.26 pH with CO2 of 58 and a PaO2 of 72 on oxygen supplementation. chest x-ray shows moderate COPD and diffuse interstitial fibrosis which appears stable there is airspace disease in both mid and lower lungs that was unchanged from a month and a half ago. She has a chronic cough which is not changed. She was supposed to undergo dialysis today but because of the acute decline patient came to the ER instead. Patient is a DNI and initially refused BiPAP but after discussion with patient and daughter daughter talking to her she excepted BiPAP. 04/19 Slept okay, On and off. Feels breathing is improved from yesterday. Occasional cough. No overnight events or new complaints. I discussed with her regarding introduction to hospice and she was agreeable. Review of Systems: denies headache/fever/chills/nausea/vomiting/chest or abdominal pain/diarrhea. Otherwise see above. - Constitutional Vitals: Vital Signs Temp Pulse Resp BP Pulse Ox 98.4 F 76 16 162/86 95 04/19/19 01:01 04/19/19 05:00 04/19/19 05:00 04/19/19 05:00 04/19/19 05:00 Period Temp Pulse Resp BP Sys/Talley Pulse Ox Last 24 Hr 97.6 F-99.4 F 66-88 12-28 97-168/60-112 84-100 Intake and Output 04/18/19 04/19/19 04/19/19 21:59 05:59 13:59 Intake Total 0 Output Total 4000 Balance -4000 Weight 61.416 kg Intake & Output: Intake & Output 04/18/19 04/19/19 04/19/19 21:59 05:59 13:59 Intake Total 0 Output Total 4000 Balance -4000 Weight 61.416 kg Intake: Oral 0 Output: Void Amount 0 Hemodialysis UF 4000 Other: Meal Dinner Percent of Meal Consumed 25% Exam: General: Alert, Awake, NAD Eyes/N/T: EOMI, , Head/Neck: neck supple, CV: RRR, No murmurs, Pulm: mild b/l wheezing, better aeration, no rales Abd: soft, nontender, +BS x4 Ext: no clubbing/cyanosis/edema Neuro: Alert, no focal deficits, moves all extremities, Skin: warm/dry Medical - PN: Obj Da - Labs CBC & Chem 7: 04/19/19 04:00 04/19/19 04:00 Labs: Abnormal Lab Results 04/19/19 04/19/19 04/18/19 04:00 04:00 08:32 WBC 3.5 L RBC 3.24 L Hgb 9.9 L Hct 30.3 L RDW 16.5 H MPV 7.2 L Gran % 83.0 H Lymph % (Auto) 14.0 L Hall % (Auto) Eos % (Auto) Lymph # (Auto) 0.5 L Potassium Chloride Carbon Dioxide 21 L Anion Gap 19.0 H BUN Creatinine 2.9 H Glucose 167 H Alkaline Phosphatase 209 H Troponin T 0.33 H* NT-Pro-B Natriuret Pep 04/18/19 04/18/19 04/18/19 08:32 08:32 08:32 WBC RBC 3.23 L Hgb 9.6 L Hct 29.7 L RDW 16.9 H MPV 7.0 L Gran % Lymph % (Auto) Hall % (Auto) 12.9 H Eos % (Auto) 9.0 H Lymph # (Auto) 1.4 L Potassium 5.4 H Chloride 92 L Carbon Dioxide Anion Gap 19.0 H BUN 47 H Creatinine 6.3 H* Glucose 146 H Alkaline Phosphatase 215 H Troponin T NT-Pro-B Natriuret Pep 64578.0 H Meds: Medications Acetaminophen (Tylenol) 650 mg PO Q6HP PRN PRN Reason: PAIN/FEVER > 101 Albuterol/Ipratropium (Duoneb) 3 ml NEB Q6HRT [facility] Last Admin: 04/19/19 07:08 Dose: 3 ml Documented by: Albuterol/Ipratropium (Duoneb) 3 ml NEB Q4HP PRN PRN Reason: Shortness Of Breath Last Admin: 04/18/19 16:16 Dose: 3 ml Documented by: Amlodipine Besylate (Norvasc) 10 mg PO SUTUTHSA@0730 [facility] Amlodipine Besylate (Norvasc) 10 mg PO MOWEFR@0500 [facility] Artificial Tears (Artificial Tears Ophth Drops) 1 gtt OU TID [facility] Last Admin: 04/18/19 22:14 Dose: 1 gtt Documented by: Aspirin (Aspirin) 81 mg PO DAILY [facility] Calcium Acetate (Phoslo) 667 mg PO TIDCC [facility] Last Admin: 04/18/19 17:52 Dose: 667 mg Documented by: Ceftriaxone Sodium (Rocephin) 1 gm IV DAILY [facility] Citalopram Hydrobromide (Celexa) 20 mg PO DAILY [facility] Clonidine HCl (Catapres Tts 2) 1 patch TD FR@0900 [facility] Clopidogrel Bisulfate (Plavix) 75 mg PO DAILY [facility] Dextrose (Dextrose 50%) 0 ml IV UD PRN PRN Reason: Hypoglycemia Diagnostic Test (Pha) (Accu-Chek) 1 each FS ACHS [facility] Last Admin: 04/18/19 21:50 Dose: 1 each Documented by: Docusate Sodium (Colace) 100 mg PO BID [facility] Last Admin: 04/18/19 21:37 Dose: 100 mg Documented by: Famotidine (Pepcid) 20 mg IV HS [facility] Last Admin: 04/18/19 21:38 Dose: 20 mg Documented by: Glucose (Insta-Glucose) 15 gm PO PRN PRN PRN Reason: Hypoglycemia Heparin Sodium (Porcine) (Heparin) 5,000 unit SQ Q12 [facility] Last Admin: 04/18/19 21:37 Dose: 5,000 unit Documented by: Potassium Chloride 40 meq/ (Dextrose) 520 mls @ 130 mls/hr IV UD PRN PRN Reason: Potassium < 3 Magnesium Sulfate (Magnesium Sulfate) 2 gm in 50 mls @ 50 mls/hr IV UD PRN PRN Reason: Magnesium </= 1.6 Azithromycin 500 mg/ Dextrose 250 mls @ 250 mls/hr IV DAILY [facility]; Protocol Stop: 04/20/19 09:59 Insulin Human Lispro (Humalog) 0 unit SQ ACHS [facility]; Protocol Last Admin: 04/18/19 21:38 Dose: 2 units Documented by: Lactobacillus Rhamnosus (Culturelle) 1 cap PO BIDCC [facility] Last Admin: 04/18/19 17:52 Dose: 1 cap Documented by: Lactulose (Cephulac) 10 gm PO DAILYP PRN PRN Reason: Constipation Lidocaine (Lidoderm) 1 patch TOPICAL DAILY@1000 [facility] Melatonin (Melatonin 3mg Tablet) 3 mg PO HS [facility] Last Admin: 04/18/19 22:14 Dose: 3 mg Documented by: Methylprednisolone Sodium Succinate (Solu-Medrol) 62.5 mg IV Q6 [facility] Last Admin: 04/19/19 05:38 Dose: 62.5 mg Documented by: Metoprolol Tartrate (Lopressor) 25 mg PO MOWEFR@0500 [facility] Metoprolol Tartrate (Lopressor) 25 mg PO SUTUTHSA@0730 [facility] Morphine Sulfate (Morphine) 1 - 2 mg IV Q3HP PRN; Protocol PRN Reason: PAIN LEVEL > 6 Last Admin: 04/18/19 23:15 Dose: 2 mg Documented by: Mupirocin (Bactroban Oint 2%) 1 dose NARES BID [facility] Last Admin: 04/18/19 22:22 Dose: Not Given Documented by: Ondansetron HCl (Zofran) 4 mg IV Q4HP PRN PRN Reason: Nausea And Vomiting Anoro Ellipta [ Umeclidinium- Vilanterol 62.5-25 Mcg] Inhaler 1 dose INH DAILY [facility] Polyethylene Glycol (Miralax) 17 gm PO DAILYP PRN PRN Reason: Constipation Polyethylene Glycol (Miralax) 17 gm PO DAILY [facility] Potassium Chloride (Kdur) 40 meq PO UD PRN PRN Reason: Potssium is 3-3.5 Potassium Chloride (Kdur) 40 meq PO UD PRN PRN Reason: Potassium < 3 Promethazine HCl (Phenergan) 0 mg PO Q6HP PRN PRN Reason: Nausea And Vomiting Senna (Senokot) 1 tab PO HSP PRN PRN Reason: Constipation Senna (Senokot) 1 tab PO DAILY [facility] Sodium Chloride (Saline Flush) 10 ml IV Q8 [facility] Last Admin: 04/19/19 05:34 Dose: 10 ml Documented by: Tiotropium Jemison (Spiriva) 18 mcg INH DAILY [facility] Vancomycin HCl (Vancomycin Per Pharmacy) 1 order IV UD [facility]; Protocol Medical - PN: A/P - Time Spent With Patient Total time spent is greater than 50% in coordination of care (as documented) at patient's floor/unit and/or counseling patient: - Narrative A/P Narrative: A: *Acute on chronic hypoxic/hypercapnic respiratory failure: 2/2 AECOPD/pulm fibrosis/probable PNA and volume overload - *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 harvey outpt *proabable Pneumonia, likely aspiration (has had multiple hospitalizations for same including aspiration PNA - not compliant with dysphagia diet *Pulmonary fibrosis: *ESRD: follows with [facility] *met/resp acidosis: improved *Anemia, chronic: *h/o dCHF: *DM: *h/o CVA's: *Vascular Dementia: *HTN/HLD: *Depression/anxiety: on sertraline and quetiapine *Tobacco abuse: *Hyperkalemia: Received dialysis morning, do not treat per Dr. Tafoya discussion with ED *Generalized weakness/deconditioning/debility/failure to thrive: *Goals of care: Poor functional status, multiple hospitalizations, decline. D roseer is POA. -no aggressive interventions, and if declines will transition towards comfort focus P: -corticosteroids (wean) -Wean bipap as able, f/u ABG -IS/Acapella, RT/nebs -SpO2 and PaO2 not correlating, still low O2 on Pao2, likely from underlying lung dz but consider PE, check Ddimer although likely to be high anyway, then CTA and HD after -zosyn/vanc(for now given MRSA+ screen), pending BC/SC -Dr. Tafoya for HD -cont home clonidine/norvasc/lopressor/lasix; nephro to start clonidine patch, d/c with script -cont ASA/Plavix -ST eval,dysphagia diet -lantus and SSI -pt/ot -Smoking cessation counseling -Hospice introduction -ppx: heparin/home ppi DNR/DNI, No aggressive intervention/procedures, Bipap ok. Medical - PN: Qual - Stroke Symptom Onset Unknown: No - VTE Deep Vein Thrombosis/Pulmonary Embolism Present on Admission: No
[2019-04-19] MEDS: INSULIN LISPRO 1 UNIT/0.01 ML UNIT SQ SCH ×4 (08:22→20:13)
[2019-04-19] MEDS: CITALOPRAM 20 MG TABLET PO SCH (08:23)
[2019-04-19] MEDS: CALCIUM ACETATE 667 MG CAPSULE PO SCH ×3 (08:23→18:04)
[2019-04-19] MEDS: CLOPIDOGREL 75 MG TABLET PO SCH (08:23)
[2019-04-19] MEDS: ASPIRIN 81 MG TAB.CHEW PO SCH (08:23)
[2019-04-19] MEDS: HEPARIN 5,000 UNIT/ML VIAL SQ SCH ×2 (08:23→20:13)
[2019-04-19] MEDS: DOCUSATE SODIUM 100 MG CAPSULE PO SCH ×2 (08:23→20:14)
[2019-04-19] MEDS: POLYVINYL ALCOHOL OPHTH DROPS 15ML BOTTLE OU SCH ×3 (08:23→20:14)
[2019-04-19] MEDS ORDERED: cefTRIAXone 1 GM VIAL IV SCH (09:00)
--- NOTE | 2019-04-19 09:25 | Nephrology Progress Note ---
Subjective Patient information: Note initiated : 04/19/19 at 9:23 am Service Date, if different from initiated Date: [] Patient: Covert,Cherelle a 63 y/o F admitted on 04/18/19 for N/V; SOB. Chief Complaint: [] Breathing is a little bit better but still coughing a little bit. Objective - Vital Signs Vital signs: Vital Signs Temp Pulse Pulse Pulse Resp BP BP 04/19/19 08:14 80 19 04/19/19 08:01 75 16 151/79 04/19/19 07:46 79 22 157/94 04/19/19 07:31 77 17 149/81 04/19/19 07:16 76 14 163/80 04/19/19 07:15 72 14 04/19/19 07:01 77 17 150/87 04/19/19 06:48 82 19 142/80 04/19/19 06:31 74 17 147/83 04/19/19 06:16 84 25 H 135/97 04/19/19 06:01 78 16 154/80 04/19/19 05:46 75 14 154/93 04/19/19 05:31 75 16 153/83 04/19/19 05:16 75 16 157/85 04/19/19 05:01 73 15 162/86 04/19/19 05:00 76 16 162/86 04/19/19 04:46 74 19 148/82 04/19/19 04:31 77 19 143/77 04/19/19 04:16 75 16 145/79 04/19/19 04:10 75 15 04/19/19 04:01 75 12 153/90 04/19/19 03:46 79 19 146/80 04/19/19 03:31 75 18 151/73 04/19/19 03:17 76 18 139/68 04/19/19 03:01 78 18 158/80 04/19/19 03:00 78 14 158/80 04/19/19 02:46 77 16 153/80 04/19/19 02:31 77 16 157/75 04/19/19 02:16 77 16 153/79 04/19/19 02:01 78 19 156/87 04/19/19 01:46 80 16 150/79 04/19/19 01:31 78 18 145/73 04/19/19 01:16 77 15 142/75 04/19/19 01:01 98.4 F 76 16 164/81 04/19/19 01:00 98.5 F 79 16 164/81 04/19/19 00:46 76 18 145/77 04/19/19 00:31 74 13 152/78 04/19/19 00:16 74 14 159/80 04/19/19 00:15 97.6 F 75 15 04/19/19 00:01 74 22 134/84 04/19/19 00:00 75 04/18/19 23:49 79 18 145/77 04/18/19 23:46 97.8 F 75 17 140/82 04/18/19 22:34 77 19 04/18/19 21:00 77 16 144/66 04/18/19 20:45 78 157/93 04/18/19 20:30 77 159/83 04/18/19 20:15 77 168/79 04/18/19 20:02 98.2 F 77 156/80 04/18/19 20:01 98.2 F 76 15 156/80 04/18/19 19:46 78 16 142/82 04/18/19 19:45 78 142/82 04/18/19 19:41 04/18/19 19:31 79 22 159/80 04/18/19 19:30 78 159/60 04/18/19 19:16 79 16 149/81 04/18/19 19:15 79 149/81 04/18/19 19:01 72 18 152/81 04/18/19 19:00 80 152/81 04/18/19 18:46 80 20 149/99 04/18/19 18:45 80 149/99 04/18/19 18:31 80 19 162/80 04/18/19 18:16 79 17 159/90 04/18/19 18:15 80 159/90 04/18/19 18:01 79 20 166/87 04/18/19 18:00 79 166/87 04/18/19 17:45 79 152/82 04/18/19 17:30 82 148/83 04/18/19 17:15 82 142/82 04/18/19 17:00 79 143/112 04/18/19 16:43 99.3 F H 80 150/80 04/18/19 16:34 73 17 148/81 04/18/19 16:30 20 148/81 04/18/19 16:27 73 17 04/18/19 16:15 19 146/87 04/18/19 16:00 99.3 F H 20 153/81 141/97 04/18/19 15:47 99.4 F H 70 20 145/87 04/18/19 15:35 99.3 F H 20 141/97 04/18/19 15:34 73 20 04/18/19 15:31 70 18 145/87 04/18/19 15:16 69 17 142/86 04/18/19 15:01 70 17 138/82 04/18/19 14:46 69 19 131/81 04/18/19 14:31 67 19 141/81 04/18/19 14:16 70 19 135/78 04/18/19 14:01 71 19 123/79 04/18/19 13:46 69 19 129/82 04/18/19 13:31 67 19 133/81 04/18/19 13:16 68 16 128/83 04/18/19 13:01 18 117/82 04/18/19 12:46 67 18 132/81 04/18/19 12:35 88 15 04/18/19 12:31 69 18 134/87 04/18/19 12:27 68 19 04/18/19 12:16 75 19 138/81 04/18/19 12:01 67 19 118/88 04/18/19 11:46 66 20 129/84 04/18/19 11:31 70 18 128/87 04/18/19 11:16 70 23 H 131/77 04/18/19 11:01 72 15 125/65 04/18/19 11:00 72 16 127/76 04/18/19 10:16 18 125/97 04/18/19 10:01 72 17 127/84 04/18/19 09:46 16 108/64 04/18/19 09:30 71 17 107/63 Pulse Ox 04/19/19 08:14 90 04/19/19 08:01 96 04/19/19 07:46 96 04/19/19 07:31 95 04/19/19 07:16 96 04/19/19 07:15 95 04/19/19 07:01 96 04/19/19 06:48 97 04/19/19 06:31 96 04/19/19 06:16 93 04/19/19 06:01 96 04/19/19 05:46 95 04/19/19 05:31 96 04/19/19 05:16 94 04/19/19 05:01 96 04/19/19 05:00 95 04/19/19 04:46 97 04/19/19 04:31 97 04/19/19 04:16 97 04/19/19 04:10 95 04/19/19 04:01 95 04/19/19 03:46 93 04/19/19 03:31 92 04/19/19 03:17 94 04/19/19 03:01 92 04/19/19 03:00 95 04/19/19 02:46 93 04/19/19 02:31 93 04/19/19 02:16 95 04/19/19 02:01 94 04/19/19 01:46 94 04/19/19 01:31 90 04/19/19 01:16 90 04/19/19 01:01 96 04/19/19 01:00 94 04/19/19 00:46 93 04/19/19 00:31 91 04/19/19 00:16 96 04/19/19 00:15 94 04/19/19 00:01 97 04/19/19 00:00 93 04/18/19 23:49 93 04/18/19 23:46 94 04/18/19 22:34 93 04/18/19 21:00 94 04/18/19 20:45 04/18/19 20:30 04/18/19 20:15 04/18/19 20:02 04/18/19 20:01 94 04/18/19 19:46 97 04/18/19 19:45 04/18/19 19:41 94 04/18/19 19:31 99 04/18/19 19:30 04/18/19 19:16 94 04/18/19 19:15 04/18/19 19:01 88 L 04/18/19 19:00 04/18/19 18:46 93 04/18/19 18:45 04/18/19 18:31 98 04/18/19 18:16 96 04/18/19 18:15 04/18/19 18:01 90 04/18/19 18:00 04/18/19 17:45 04/18/19 17:30 04/18/19 17:15 04/18/19 17:00 04/18/19 16:43 04/18/19 16:34 99 04/18/19 16:30 99 04/18/19 16:27 95 04/18/19 16:15 99 04/18/19 16:00 94 04/18/19 15:47 100 04/18/19 15:35 100 04/18/19 15:34 94 04/18/19 15:31 91 04/18/19 15:16 90 04/18/19 15:01 90 04/18/19 14:46 90 04/18/19 14:31 92 04/18/19 14:16 92 04/18/19 14:01 92 04/18/19 13:46 88 L 04/18/19 13:31 86 L 04/18/19 13:16 88 L 04/18/19 13:01 04/18/19 12:46 88 L 04/18/19 12:35 90 04/18/19 12:31 90 04/18/19 12:27 94 04/18/19 12:16 94 04/18/19 12:01 95 04/18/19 11:46 91 04/18/19 11:31 93 04/18/19 11:16 91 04/18/19 11:01 92 04/18/19 11:00 93 04/18/19 10:16 04/18/19 10:01 99 04/18/19 09:46 04/18/19 09:30 86 L Intake and Output 04/18/19 04/19/19 04/19/19 21:59 05:59 13:59 Intake Total 0 Output Total 4000 Balance -4000 Intake: Oral 0 Output: Void Amount 0 Hemodialysis UF 4000 Other: Meal Dinner Percent of Meal Consumed 25% Weight 135 lb 6.4 oz Intake & Output: Intake & Output 04/18/19 04/19/19 04/19/19 21:59 05:59 13:59 Intake Total 0 Output Total 4000 Balance -4000 Weight 135 lb 6.4 oz Intake: Oral 0 Output: Void Amount 0 Hemodialysis UF 4000 Other: Meal Dinner Percent of Meal Consumed 25% - General Appearance General appearance: cachectic, chronically ill EENT: ATNC Neck: no JVD Respiratory: no kyphosis, rales, course breath sounds, rhonchi Cardiology: no murmurs Gastrointestinal: normoactive bowel sounds Integumentary: no rash Neurologic: no focal deficit Psychiatric: mood/affect appropriate - Lab 04/19/19 04:00 04/20/19 04:00 Most recent lab results Calcium 8.8 mg/dl (8.6-10.4) 04/19/19 04:00 Phosphorus 3.6 mg/dL (2.7-4.5) 04/19/19 04:00 Magnesium 2.0 mg/dL (1.6-2.5) 04/19/19 04:00 Assessment and Plan (1) ESRD (end stage renal disease) on dialysis Status: Chronic Priority: Medium Comment: She had dialysis yesterday and still hypoxic. Will dialyse again today and remove additional fluid.
[2019-04-19] MEDS: LACTOBACILLUS 1 CAPSULE PO SCH ×2 (09:39→18:04)
[2019-04-19] MEDS: SENNOSIDES 1 TABLET PO SCH (09:39)
[2019-04-19] MEDS: PIPERACILLIN SODIUM/TAZOBACTAM 2.25 GM in DEXTROSE 5% IN WATER 50 ML IV SCH ×2 (09:39→20:15)
[2019-04-19] MEDS: MUPIROCIN OINT 2% 22GM NARES SCH ×2 (09:40→20:14)
[2019-04-19] MEDS: POLYETHYLENE GLYCOL 3350 17 GM PACKET PO SCH (09:40)
[2019-04-19] MEDS: LIDOCAINE PATCH TOPICAL SCH (09:40)
[2019-04-19] MEDS: TIOTROPIUM BROMIDE 18 MCG INHALANT INH SCH (10:19)
[2019-04-19] MEDS: ANORO ELLIPTA INH SCH (10:19)
[2019-04-19] MEDS: AZITHROMYCIN 500 MG in DEXTROSE 5% IN WATER 250 ML IV SCH (10:53)
[2019-04-19] MEDS ORDERED: IOPAMIDOL 100 ML BOTTLE IV ONE (13:16)
--- NOTE | 2019-04-19 14:10 | Cat Scan Report ---
CLINICAL INFORMATION: Shortness of breath COMPARISON: Chest CT from 02/21/2015, 12/16/2018 and 03/01/2019 TECHNIQUE: ml of Isovue-370 were injected intravenously. Using SmartPrep to maximize pulmonary artery opacification, .625mm helical slices were obtained from the lung apices through the lung bases. Following reconstruction, 2.5 mm sagittal, coronal, and axial reformations were processed. The exam was reviewed at mediastinal, lung, and bone windows. The exam was performed using radiation dose optimization techniques including, but not limited to, automated exposure control, adjustment of the mA and/or kV according to patient size and use of iterative reconstruction technique. FINDINGS: Pulmonary parenchymal windows show moderate centrilobular emphysema featuring chronic bronchitis (elevated lung volumes and wall thickening/ dilatation of the bronchi), multiple bullae predominantly in the upper lobes and scattered throughout the periphery of both lower and right middle lobes. Moderate patchy alveolar infiltrates in the posterior lower and right middle lobes has generally improved since the most recent CT less than two months ago 03/01/2019. Multiple nodules throughout both mid and lower lungs are unchanged since the prior 12/16/2018 CT four months prior. They were not, however, present on the remote 2014 CT. The largest of these spans 16 mm in the posterior segment of the left upper lobe. They could be inflammatory or represent metastases from an unknown primary carcinoma. There are no effusions. The mediastinal windows show the heart is mildly enlarged with moderately heavy calcific plaque in the coronary arteries. The central pulmonary arteries moderately enlarged with a main pulmonary artery diameter of 3.7 cm. Findings compatible pulmonary hypertension related to COPD. No evidence of pulmonary embolus. The noncontrasted thoracic aorta is normal in diameter with scattered plaque. A few mildly enlarged lymph nodes in the lower mediastinum and hilar regions representing benign reactive lymph nodes from inflammation and are stable. Esophagus is unremarkable. Thyroid is normal. Bone windows show no osseous abnormality. Images should the superior abdomen show marked renal atrophy compatible end-stage renal disease. No other abnormality IMPRESSION: 1. No evidence of pulmonary embolus 2. Moderate centrilobular emphysema changes. Moderate central pulmonary artery enlargement compatible with pulmonary hypertension - stable. 3. Moderate patchy alveolar infiltrates in both posterior lower lobes and right middle lobe show modest improvement since the comparison CT less than two months ago. Suspect aspiration or infection. 4. Multiple pulmonary nodules ranging up to 16 mm in the posterior segment left upper lobe are unchanged since CT four months prior - 12/16/2018. They were not, however, seen on the remote 2015 CT. They could represent metastases or inflammatory nodules. Suggest abdomen and pelvic CT to search for a primary carcinoma. Biopsy of the largest nodule, in the posterior left upper lobe, should be considered Interpreted and Authenticated by: Joe Centeno 04/19/19
[2019-04-19 18:05] LABS: Vancomycin,Random 7.6 ug/mL
[2019-04-19] MEDS ORDERED: VANCOMYCIN 1,000 MG in 0.9 % SODIUM CHLORIDE 250 ML IV ONE (19:15)
[2019-04-19] MEDS: FAMOTIDINE/PF 20 MG/2 ML VIAL IV SCH (20:13)
[2019-04-19] MEDS: MELATONIN 3 MG TABLET PO SCH (20:17)
[2019-04-20] MEDS: IPRATROPIUM/ALBUTEROL 3 ML AMPUL.NEB NEB SCH ×4 (02:20→19:49)
[2019-04-20] MEDS ORDERED: amLODIPine 10 MG TABLET PO SCH ×2 (05:00)
[2019-04-20] MEDS ORDERED: METOPROLOL TARTRATE 25 MG TABLET PO SCH ×2 (05:00)
[2019-04-20] MEDS: 0.9 % SODIUM CHLORIDE 10 ML SYRINGE IV SCH ×3 (05:15→22:23)
[2019-04-20] MEDS: methylPREDNISolone SOD SUCC 125 MG/2 ML VIAL IV SCH (05:16)
[2019-04-20 06:22] LABS: ALT/SGPT 7 U/l (0-40); AST/SGOT 11 U/l (0-37); Albumin/Globulin Ratio 1.4 (1.0-2.3); Alkaline Phosphatase 184 U/L (39-117); Bilirubin,Direct < 0.2 mg/dL (0.0-0.3); Bilirubin,Total 0.2 mg/dL (0.0-1.0); Blood Urea Nitrogen 29 mg/dl (8-23); Calcium 9.1 mg/dl (8.6-10.4); Carbon Dioxide 24 mmol/L (22-30); Chloride 93 mmol/L (96-108); Globulin 2.9 gm/dL (2.2-3.7); Glomerular Filtration Rate 15; Glucose 206 mg/dL (70-105); Lactate Dehydrogenase 142 U/L (94-250); Phosphorous 2.8 mg/dL (2.7-4.5); Triglycerides 158 mg/dl (<150); Uric Acid 2.6 mg/dL (2.5-8.0)
--- NOTE | 2019-04-20 07:42 | Discharge Summary ---
Medical - DS: Prov Patient information: Note initiated : 04/20/19 at 7:34 am Service Date, if different from initiated Date: [] Patient: Covert,Cherelle gonzalez 63 y/o F admitted on 04/18/19 for N/V; SOB. Chief Complaint: [] Date of admission: 04/18/19 15:35 Primary care physician: Leta Araujo Consults: 04/18/19 14:12 Consult to Physician [CONS] Stat Comment: Consulting Provider: Chaitanya Baldwin Reason For Exam: Physician to Consult 04/18/19 15:57 Consult to Physician [CONS] Routine Comment: Consulting Provider: Nathan Tafoya Reason For Exam: Physician to Consult Medical - DS: Meds - Discharge Medications Prescriptions: predniSONE [Prednisone] 40 mg PO [facility] #1 tablet Active and Home Medications: Home Medications Citalopram Hydrobromide [Celexa] 20 mg PO DAILY 07/11/15 [History Confirmed 04/18/19 Last Taken 04/16/19] Aspirin [Aspirin EC] 81 mg PO DAILY 07/18/18 [History Confirmed 04/18/19 Last Taken 04/16/19] Clopidogrel Bisulfate [Plavix] 75 mg PO DAILY 07/18/18 [History Confirmed 04/18/19 Last Taken 04/17/19] amLODIPine [Norvasc] 10 mg PO MOWEFR@0500 09/20/18 [History Confirmed 04/18/19 Last Taken 04/18/19] cloNIDine [Catapres-Tts 2] 1 patch TOPICAL FR@0900 09/20/18 [History Confirmed 04/18/19 Last Taken 04/15/19] Metoprolol Tartrate [Lopressor] 25 mg PO MOWEFR@0500 11/05/18 [History Confirmed 04/18/19 Last Taken 04/18/19] Anoro Ellipta [Umeclidinium-Vilanterol 62.5-25 Mcg/Inh] 1 puff INH DAILY 04/18/19 [History Confirmed 04/18/19 Last Taken 04/16/19] Calcium Acetate [Phoslo] 667 mg PO TIDCC 04/18/19 [History Confirmed 04/18/19 Last Taken 04/16/19] Dextran 70/Hypromellose [Artificial Tears] 1 gtt OU TID 04/18/19 [History Confirmed 04/18/19 Last Taken 04/16/19] Famotidine [Heartburn Prevention] 20 mg PO DAILY 04/18/19 [History Confirmed 04/18/19 Last Taken 04/16/19] Ipratropium/Albuterol [Duoneb] 3 ml NEB Q6H 04/18/19 [History Confirmed 04/18/19 Last Taken 04/17/19] L.acidoph,Paracasei, B.lactis [Probiotic] 1 cap PO BIDCC 04/18/19 [History Confirmed 04/18/19 Last Taken 04/16/19] Lidocaine [Aspercreme] 1 patch TOPICAL DAILY 04/18/19 [History Confirmed 04/18/19 Last Taken 04/17/19] Megestrol Acetate [Megace] 400 mg PO BID 04/18/19 [History Confirmed 04/18/19 Last Taken Unknown] Melatonin [Melatin] 3 mg PO HS 04/18/19 [History Confirmed 04/18/19 Last Taken 04/17/19] Metoprolol Tartrate [Lopressor] 25 mg PO SUTUTHSA@0730 04/18/19 [History Confirmed 04/18/19 Last Taken 04/17/19] Pantoprazole [Protonix] 40 mg PO QAMAC 04/18/19 [History Confirmed 04/18/19 Last Taken 04/17/19] Polyethylene Glycol 3350 [Miralax] 17 gm PO DAILY 04/18/19 [History Confirmed 04/18/19 Last Taken Unknown] Sennosides [Senna] 8.6 mg PO DAILY 04/18/19 [History Confirmed 04/18/19 Last Taken Unknown] Tiotropium [place] [Spiriva] 18 mcg INH DAILY 04/18/19 [History Confirmed 04/18/19 Last Taken Unknown] amLODIPine [Norvasc] 10 mg PO SUTUTHSA@0730 04/18/19 [History Confirmed 04/18/19 Last Taken 04/17/19] Ondansetron HCl [Zofran] 4 mg PO Q6HP PRN 04/19/19 [History Confirmed 04/19/19 Last Taken Unknown] Simethicone [Mylicon] 80 mg CHEWED DAILYP PRN 04/19/19 [History Confirmed 04/19/19 Last Taken Unknown] traZODone HCL [Desyrel] 50 mg PO HSP PRN 04/19/19 [History Confirmed 04/19/19 Last Taken Unknown] Medical - DS: Hosp Hospital Course: Ms. Mcpherson is a 63 year old F History of taken from daughter as well as the patient as patient is a poor historian and has poor short-term memory. Remembers waking up yesterday morning feeling short of breath which wax and wane throughout the day. Per her daughter she just been off the entire weekend very lethargic and weak. She has some nausea vomiting the other day. Per her son she passed out on them several times this morning before dialysis She denies any wheezing or fever chills. No headache. Her memory is significantly decline over the past months to year. Her appetite is significantly decreased over the past 6 months. He supposed adhere to dysphasia diet and had problems with aspiration pneumonia, but she will let not adhere to a dysphasia diet She did receive some breathing treatments which she says helped her symptoms. In the ER she was hypoxic and subsequently needed to be placed on BiPAP. She was acidotic at 7.26 pH with CO2 of 58 and a PaO2 of 72 on oxygen supplementation. chest x-ray shows moderate COPD and diffuse interstitial fibrosis which appears stable there is airspace disease in both mid and lower lungs that was unchanged from a month and a half ago. She has a chronic cough which is not changed. She was supposed to undergo dialysis today but because of the acute decline patient came to the ER instead. Patient is a DNI and initially refused BiPAP but after discussion with patient and daughter daughter talking to her she excepted BiPAP. 04/19 Slept okay, On and off. Feels breathing is improved from yesterday. Occasional cough. No overnight events or new complaints. I discussed with her regarding introduction to hospice and she was agreeable. Discharge diagnosis: Acute on chronic hypoxic hypercapnic respiratory failure COPD Secondary discharge diagnosis: Pneumonia pulmonary fibrosis end-stage renal disease anemia chronic history of diastolic heart failure diabetes history of strokes vascular dementia hypertension depression anxiety tobacco abuse hyperkalemia generalized weakness deconditioning debility failure to thrive - Time Spent with Patient Total time spent providing and/or coordinating discharge services: Greater than 30 minutes Medical - DS: Exam - Constitutional Vitals: Vital Signs Temp Pulse Resp BP Pulse Ox 04/20/19 07:06 74 20 179/85 95 04/20/19 07:01 74 18 181/88 94 04/20/19 06:02 75 21 94 04/20/19 06:01 78 20 170/89 92 04/20/19 05:01 75 17 169/74 87 L 04/20/19 04:01 97.7 F 76 19 165/79 91 04/20/19 03:01 76 21 159/68 94 04/20/19 02:01 99.9 F H 75 21 170/78 97 04/20/19 01:02 74 18 148/78 96 04/20/19 00:01 98.0 F 73 15 170/79 91 04/19/19 23:01 75 18 164/77 91 04/19/19 22:01 78 19 139/74 86 L 04/19/19 21:01 79 20 142/71 86 L 04/19/19 20:01 98.2 F 77 20 148/71 93 04/19/19 19:55 82 20 04/19/19 19:01 80 16 127/69 85 L 04/19/19 18:01 74 16 144/78 90 04/19/19 17:01 69 17 112/74 92 04/19/19 16:58 98.4 F 69 112/74 04/19/19 16:45 71 128/74 04/19/19 16:30 73 136/82 04/19/19 16:15 72 18 141/87 95 04/19/19 16:03 98.4 F 63 18 71/55 96 04/19/19 16:00 68 96/61 04/19/19 15:45 68 113/72 04/19/19 15:31 65 16 107/73 99 04/19/19 15:25 69 107/73 04/19/19 15:15 69 109/66 04/19/19 15:10 77 17 96 04/19/19 15:01 65 13 111/66 100 04/19/19 14:57 69 111/66 04/19/19 14:45 73 115/72 04/19/19 14:30 71 142/77 04/19/19 14:15 72 21 151/105 97 04/19/19 14:01 71 20 147/70 93 04/19/19 13:59 70 19 151/73 97 04/19/19 13:56 98.6 F 72 147/70 04/19/19 13:46 69 19 155/70 94 04/19/19 13:40 75 19 94 04/19/19 13:30 79 20 04/19/19 13:00 94 04/19/19 12:15 67 18 95 04/19/19 11:31 98.6 F 70 20 143/92 96 04/19/19 11:06 72 20 97 04/19/19 09:57 82 19 93 04/19/19 09:19 79 18 152/80 86 L 04/19/19 08:32 78 17 160/86 90 04/19/19 08:17 73 17 98/76 79 L 04/19/19 08:14 80 19 90 04/19/19 08:01 75 16 151/79 96 04/19/19 07:46 79 22 157/94 96 Intake and Output 04/19/19 04/20/19 04/20/19 21:59 05:59 13:59 Intake Total 290 Output Total 3000 Balance -2710 Intake: IV 50 Zosyn 2.25 gm In Dextrose 5% in 50 Water 50 ml @ 100 mls/hr IV Q12H [facility] Rx#:[id number] Oral 240 Output: Void Amount 0 Hemodialysis UF 3000 Other: Meal Dinner Percent of Meal Consumed 75% Feeding Ability Independent Weight 58.287 kg Medical - DS: Data Labs on day of discharge: Labs from last 24 hours 04/20/19 04/19/19 04/19/19 04:00 16:54 09:21 D-Dimer 1.64 H Sodium 134 Potassium 4.5 Chloride 93 L Carbon Dioxide 24 Anion Gap 17.0 H BUN 29 H Creatinine 3.1 H GFR Calculation 15 Glucose 206 H Uric Acid 2.6 Calcium 9.1 Phosphorus 2.8 Magnesium 2.0 Total Bilirubin 0.2 Direct Bilirubin < 0.2 GGT 36 AST 11 ALT 7 Alkaline Phosphatase 184 H Lactate Dehydrogenase 142 Total Protein 6.9 Albumin 4.0 Globulin 2.9 Albumin/Globulin Ratio 1.4 Triglycerides 158 H Random Vancomycin 7.6 Vancomycin Dose Not Reportable Vanco Last Dose Time Not Reportable Preliminary micro results at discharge 04/18/19 10:12 Blood Culture - Preliminary Blood 04/18/19 09:38 Blood Culture - Preliminary Blood Medical - DS: A/P - Patient/Caregiver Discharge Instructions Activity: as per physical therapy Diet: Dysphagia Level 5 Minced & Moist Foods (Renal diet), Thickened Liquids Additional Instructions: Follow-up CT per PCP to follow pulmonary nodules and consider abdominal and pelvic CT Prescriptions: Cefdinir 300 mg PO Q48 #3 cap Prescription Printed predniSONE [Prednisone] 40 mg PO [facility] #1 tablet - Follow up Plan Follow up with: Leta Araujo MD [Primary Care Provider] - Nathan Tafoya MD [Physician] - Disposition: Xfer SNF Prognosis: Undetermined Rehab Potential: Fair I certify that the patient requires SNF services: Yes Overall status at discharge: patient is progressing back to baseline Medical - DS: Qual - VTE Deep Vein Thrombosis/Pulmonary Embolism Present on Admission: No
--- NOTE | 2019-04-20 07:46 | Internal Med Progress Note ---
Medical - PN: Subj Patient information: Note initiated : 04/20/19 at 7:44 am Service Date, if different from initiated Date: [] Patient: Cherelle Mcpherson 63 y/o F admitted on 04/18/19 for N/V; SOB. Chief Complaint: [] Interval history: Ms. Mcpherson is a 63 year old F History of taken from daughter as well as the patient as patient is a poor historian and has poor short-term memory. Remembers waking up yesterday morning feeling short of breath which wax and wane throughout the day. Per her daughter she just been off the entire weekend very lethargic and weak. She has some nausea vomiting the other day. Per her son she passed out on them several times this morning before dialysis She denies any wheezing or fever chills. No headache. Her memory is significantly decline over the past months to year. Her appetite is significantly decreased over the past 6 months. He supposed adhere to dysphasia diet and had problems with aspiration pneumonia, but she will let not adhere to a dysphasia diet She did receive some breathing treatments which she says helped her symptoms. In the ER she was hypoxic and subsequently needed to be placed on BiPAP. She was acidotic at 7.26 pH with CO2 of 58 and a PaO2 of 72 on oxygen supplementation. chest x-ray shows moderate COPD and diffuse interstitial fibrosis which appears stable there is airspace disease in both mid and lower lungs that was unchanged from a month and a half ago. She has a chronic cough which is not changed. She was supposed to undergo dialysis today but because of the acute decline patient came to the ER instead. Patient is a DNI and initially refused BiPAP but after discussion with patient and daughter daughter talking to her she excepted BiPAP. 04/19 Slept okay, On and off. Feels breathing is improved from yesterday. Occasional cough. No overnight events or new complaints. I discussed with her regarding introduction to hospice and she was agreeable. 04/20 Feeling better today. No new complaints. No overnight events. Was on 4.5 L oxygen this morning placed on 3 L and she is doing well. That is her baseline. CT of the chest showed no PE but did show pulmonary nodules which are stable from 4 months ago. She does have a history of ovarian cancer. We will attain CT abdomen pelvis while she is here. Dialysis today. Blood pressure adjustments per nephrology. Review of Systems: denies headache/fever/chills/nausea/vomiting/chest or abdominal pain/diarrhea. Otherwise see above. - Constitutional Vitals: Vital Signs Temp Pulse Resp BP Pulse Ox 97.7 F 74 20 179/85 95 04/20/19 04:01 04/20/19 07:06 04/20/19 07:06 04/20/19 07:06 04/20/19 07:06 Period Temp Pulse Resp BP Sys/[place] Pulse Ox Last 24 Hr 97.7 F-99.9 F 63-82 13-22 71-181/55-105 79-100 Intake and Output 04/19/19 04/20/19 04/20/19 21:59 05:59 13:59 Intake Total 290 Output Total 3000 Balance -2710 Weight 58.287 kg Intake & Output: Intake & Output 04/19/19 04/20/19 04/20/19 21:59 05:59 13:59 Intake Total 290 Output Total 3000 Balance -2710 Weight 58.287 kg Intake: IV 50 Zosyn 2.25 gm In Dextrose 5% in 50 Water 50 ml @ 100 mls/hr IV Q12H [facility] Rx#:[id number] Oral 240 Output: Void Amount 0 Hemodialysis UF 3000 Other: Meal Dinner Percent of Meal Consumed 75% Feeding Ability Independent Exam: General: Alert, Awake, NAD Eyes/N/T: EOMI, , Head/Neck: neck supple, CV: RRR, No murmurs, Pulm: no wheezing, better aeration but still diminished, no rales Abd: soft, nontender, +BS x4 Ext: no clubbing/cyanosis/edema Neuro: Alert, no focal deficits, moves all extremities, Skin: warm/dry Medical - PN: Obj Da - Labs CBC & Chem 7: 04/19/19 04:00 04/20/19 04:00 Labs: Abnormal Lab Results 04/20/19 04/19/19 04/19/19 04:00 09:21 04:00 WBC RBC Hgb Hct RDW MPV Gran % Lymph % (Auto) [place] % (Auto) Eos % (Auto) Lymph # (Auto) D-Dimer 1.64 H Potassium Chloride 93 L Carbon Dioxide 21 L Anion Gap 17.0 H 19.0 H BUN 29 H Creatinine 3.1 H 2.9 H Glucose 206 H 167 H Alkaline Phosphatase 184 H 209 H Troponin T NT-Pro-B Natriuret Pep Triglycerides 158 H 04/19/19 04/18/19 04/18/19 04:00 08:32 08:32 WBC 3.5 L RBC 3.24 L Hgb 9.9 L Hct 30.3 L RDW 16.5 H MPV 7.2 L Gran % 83.0 H Lymph % (Auto) 14.0 L [place] % (Auto) Eos % (Auto) Lymph # (Auto) 0.5 L D-Dimer Potassium Chloride Carbon Dioxide Anion Gap BUN Creatinine Glucose Alkaline Phosphatase Troponin T 0.33 H* NT-Pro-B Natriuret Pep 80467.0 H Triglycerides 04/18/19 04/18/19 08:32 08:32 WBC RBC 3.23 L Hgb 9.6 L Hct 29.7 L RDW 16.9 H MPV 7.0 L Gran % Lymph % (Auto) [place] % (Auto) 12.9 H Eos % (Auto) 9.0 H Lymph # (Auto) 1.4 L D-Dimer Potassium 5.4 H Chloride 92 L Carbon Dioxide Anion Gap 19.0 H BUN 47 H Creatinine 6.3 H* Glucose 146 H Alkaline Phosphatase 215 H Troponin T NT-Pro-B Natriuret Pep Triglycerides Meds: Medications Acetaminophen (Tylenol) 650 mg PO Q6HP PRN PRN Reason: PAIN/FEVER > 101 Albuterol/Ipratropium (Duoneb) 3 ml NEB Q6HRT [facility] Last Admin: 04/20/19 02:20 Dose: 3 ml Documented by: Albuterol/Ipratropium (Duoneb) 3 ml NEB Q4HP PRN PRN Reason: Shortness Of Breath Last Admin: 04/18/19 16:16 Dose: 3 ml Documented by: Amlodipine Besylate (Norvasc) 10 mg PO SUTUTHSA@0730 [facility] Last Admin: 04/19/19 08:23 Dose: 10 mg Documented by: Amlodipine Besylate (Norvasc) 10 mg PO MOWEFR@0500 [facility] Last Admin: 04/20/19 05:15 Dose: 10 mg Documented by: Artificial Tears (Artificial Tears Ophth Drops) 1 gtt OU TID [facility] Last Admin: 04/19/19 20:14 Dose: 1 gtt Documented by: Aspirin (Aspirin) 81 mg PO DAILY [facility] Last Admin: 04/19/19 08:23 Dose: 81 mg Documented by: Calcium Acetate (Phoslo) 667 mg PO TIDCC [facility] Last Admin: 04/19/19 18:04 Dose: 667 mg Documented by: Citalopram Hydrobromide (Celexa) 20 mg PO DAILY [facility] Last Admin: 04/19/19 08:23 Dose: 20 mg Documented by: Clonidine HCl (Catapres Tts 2) 1 patch TD FR@0900 [facility] Clopidogrel Bisulfate (Plavix) 75 mg PO DAILY [facility] Last Admin: 04/19/19 08:23 Dose: 75 mg Documented by: Dextrose (Dextrose 50%) 0 ml IV UD PRN PRN Reason: Hypoglycemia Diagnostic Test (Pha) (Accu-Chek) 1 each FS [facility] Last Admin: 04/20/19 07:33 Dose: 1 each Documented by: Docusate Sodium (Colace) 100 mg PO BID [facility] Last Admin: 04/19/19 20:14 Dose: 100 mg Documented by: Famotidine (Pepcid) 20 mg IV HS [facility] Last Admin: 04/19/19 20:13 Dose: 20 mg Documented by: Glucose (Insta-Glucose) 15 gm PO PRN PRN PRN Reason: Hypoglycemia Heparin Sodium (Porcine) (Heparin) 5,000 unit SQ Q12 [facility] Last Admin: 04/19/19 20:13 Dose: 5,000 unit Documented by: Potassium Chloride 40 meq/ (Dextrose) 520 mls @ 130 mls/hr IV UD PRN PRN Reason: Potassium < 3 Magnesium Sulfate (Magnesium Sulfate) 2 gm in 50 mls @ 50 mls/hr IV UD PRN PRN Reason: Magnesium </= 1.6 Azithromycin 500 mg/ Dextrose 250 mls @ 250 mls/hr IV DAILY [facility]; Protocol Stop: 04/20/19 09:59 Last Infusion: 04/19/19 12:03 Dose: Infused Documented by: Piperacillin Sod/Tazobactam (Sod 2.25 gm/ Dextrose) 50 mls @ 100 mls/hr IV Q12H [facility]; Protocol Last Infusion: 04/19/19 20:45 Dose: Infused Documented by: Insulin Human Lispro (Humalog) [address] [facility]; Protocol Last Admin: 04/19/19 20:13 Dose: 6 units Documented by: Lactobacillus Rhamnosus (Culturelle) 1 cap PO BIDCC [facility] Last Admin: 04/19/19 18:04 Dose: 1 cap Documented by: Lactulose (Cephulac) 10 gm PO DAILYP PRN PRN Reason: Constipation Lidocaine (Lidoderm) 1 patch TOPICAL DAILY@1000 [facility] Last Admin: 04/19/19 09:40 Dose: 1 patch Documented by: Melatonin (Melatonin 3mg Tablet) 3 mg PO HS [facility] Last Admin: 04/19/19 20:17 Dose: 3 mg Documented by: Metoprolol Tartrate (Lopressor) 25 mg PO MOWEFR@0500 [facility] Last Admin: 04/20/19 05:15 Dose: 25 mg Documented by: Metoprolol Tartrate (Lopressor) 25 mg PO SUTUTHSA@0730 [facility] Last Admin: 04/19/19 08:24 Dose: Not Given Documented by: Morphine Sulfate (Morphine) 1 - 2 mg IV Q3HP PRN; Protocol PRN Reason: PAIN LEVEL > 6 Last Admin: 04/20/19 05:14 Dose: 2 mg Documented by: Mupirocin (Bactroban Oint 2%) 1 dose NARES BID [facility] Last Admin: 04/19/19 20:14 Dose: 1 dose Documented by: Ondansetron HCl (Zofran) 4 mg IV Q4HP PRN PRN Reason: Nausea And Vomiting Last Admin: 04/19/19 15:57 Dose: 4 mg Documented by: Anoro Ellipta [ Umeclidinium- Vilanterol 62.5-25 Mcg] Inhaler 1 dose INH DAILY [facility] Last Admin: 04/19/19 10:19 Dose: Not Given Documented by: Polyethylene Glycol (Miralax) 17 gm PO DAILYP PRN PRN Reason: Constipation Polyethylene Glycol (Miralax) 17 gm PO DAILY [facility] Last Admin: 04/19/19 09:40 Dose: 17 gm Documented by: Potassium Chloride (Kdur) 40 meq PO UD PRN PRN Reason: Potssium is 3-3.5 Potassium Chloride (Kdur) 40 meq PO UD PRN PRN Reason: Potassium < 3 Prednisone (Prednisone) [facility] Promethazine HCl (Phenergan) 0 mg PO Q6HP PRN PRN Reason: Nausea And Vomiting Senna (Senokot) 1 tab PO HSP PRN PRN Reason: Constipation Senna (Senokot) 1 tab PO DAILY [facility] Last Admin: 04/19/19 09:39 Dose: 1 tab Documented by: Sodium Chloride (Saline Flush) 10 ml IV Q8 [facility] Last Admin: 04/20/19 05:15 Dose: 10 ml Documented by: Tiotropium [place] (Spiriva) 18 mcg INH DAILY [facility] Last Admin: 04/19/19 10:19 Dose: Not Given Documented by: Vancomycin HCl (Vancomycin Per Pharmacy) 1 order IV UD [facility]; Protocol Medical - PN: A/P - Time Spent With Patient Total time spent is greater than 50% in coordination of care (as documented) at patient's floor/unit and/or counseling patient: - Narrative A/P Narrative: A: *Acute on chronic hypoxic/hypercapnic respiratory failure: 2/2 AECOPD/pulm fibrosis/probable PNA and volume overload -on 3L NC as of this morning -CTA no PE, chronic infiltrates mildly better than [address], pulm nodules unchanged *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 harvey outpt *Pneumonia, likely aspiration (has had multiple hospitalizations for same including aspiration PNA - not compliant with dysphagia diet *Pulmonary fibrosis: *Pulmonary nodules: stable over past 4mos, not seen on prior 2015 image, *ESRD: follows with [facility] *met/resp acidosis: improved *Anemia, chronic: *h/o dCHF: *DM: *h/o CVA's: *Vascular Dementia: *HTN/HLD: *Depression/anxiety: on sertraline and quetiapine *Tobacco abuse: *Hyperkalemia: Received dialysis morning, do not treat per Dr. Tafoya discussion with ED *Generalized weakness/deconditioning/debility/failure to thrive: *Goals of care: Poor functional status, multiple hospitalizations, decline. Daughter is POA. -no aggressive interventions, and if declines will transition towards comfort focus P: -corticosteroids (wean) -wean O2 as able -IS/Acapella, RT/nebs -zosyn/vanc(for now given MRSA+ screen) to augmentin, pending BC/SC -Dr. Tafoya for HD -cont home clonidine/norvasc/lopressor/lasix; -cont ASA/Plavix -ST eval, dysphagia diet -ct a/p with h/o ovarian CA and pulm nodules now present this year -lantus and SSI -pt/ot -Smoking cessation counseling -Hospice introduction -ppx: heparin/home ppi likely d/c in AM DNR/DNI, No aggressive intervention/procedures, Bipap ok. Medical - PN: Qual - Stroke Symptom Onset Unknown: No - VTE Deep Vein Thrombosis/Pulmonary Embolism Present on Admission: No
[2019-04-20] MEDS: PIPERACILLIN SODIUM/TAZOBACTAM 2.25 GM in DEXTROSE 5% IN WATER 50 ML IV SCH ×3 (07:56→17:10)
[2019-04-20] MEDS: INSULIN LISPRO 1 UNIT/0.01 ML UNIT SQ SCH ×4 (07:58→22:22)
[2019-04-20] MEDS: LACTOBACILLUS 1 CAPSULE PO SCH ×2 (07:59→17:23)
[2019-04-20] MEDS: CALCIUM ACETATE 667 MG CAPSULE PO SCH ×3 (07:59→17:23)
[2019-04-20] MEDS ORDERED: predniSONE 20 MG TABLET PO SCH (08:00)
[2019-04-20] MEDS ORDERED: LACTOBACILLUS 1 CAPSULE PO SCH ×2 (09:00→21:00)
[2019-04-20] MEDS ORDERED: cloNIDine HCL 0.1 MG TABLET PO PRN ×2 (09:12→12:31)
--- NOTE | 2019-04-20 09:16 | Nephrology Progress Note ---
Subjective Patient information: Note initiated : 04/20/19 at 9:14 am Service Date, if different from initiated Date: [] Patient: Covert,Cherelle a 63 y/o F admitted on 04/18/19 for N/V; SOB. Chief Complaint: [] Breathing is better. Still coughing. Objective - Vital Signs Vital signs: Vital Signs Temp Pulse Resp BP Pulse Ox 04/20/19 09:09 74 20 04/20/19 08:01 97.8 F 19 186/86 95 04/20/19 08:00 19 97 04/20/19 07:14 15 159/91 92 04/20/19 07:07 19 96 04/20/19 07:06 74 20 179/85 95 04/20/19 07:01 74 18 181/88 94 04/20/19 06:02 75 21 94 04/20/19 06:01 78 20 170/89 92 04/20/19 05:01 75 17 169/74 87 L 04/20/19 04:01 97.7 F 76 19 165/79 91 04/20/19 03:01 76 21 159/68 94 04/20/19 02:01 99.9 F H 75 21 170/78 97 04/20/19 01:02 74 18 148/78 96 04/20/19 00:01 98.0 F 73 15 170/79 91 04/19/19 23:01 75 18 164/77 91 04/19/19 22:01 78 19 139/74 86 L 04/19/19 21:01 79 20 142/71 86 L 04/19/19 20:01 98.2 F 77 20 148/71 93 04/19/19 19:55 82 20 04/19/19 19:01 80 16 127/69 85 L 04/19/19 18:01 74 16 144/78 90 04/19/19 17:01 69 17 112/74 92 04/19/19 16:58 98.4 F 69 112/74 04/19/19 16:45 71 128/74 04/19/19 16:30 73 136/82 04/19/19 16:15 72 18 141/87 95 04/19/19 16:03 98.4 F 63 18 71/55 96 04/19/19 16:00 68 96/61 04/19/19 15:45 68 113/72 04/19/19 15:31 65 16 107/73 99 04/19/19 15:25 69 107/73 04/19/19 15:15 69 109/66 04/19/19 15:10 77 17 96 04/19/19 15:01 65 13 111/66 100 04/19/19 14:57 69 111/66 04/19/19 14:45 73 115/72 04/19/19 14:30 71 142/77 04/19/19 14:15 72 21 151/105 97 04/19/19 14:01 71 20 147/70 93 04/19/19 13:59 70 19 151/73 97 04/19/19 13:56 98.6 F 72 147/70 04/19/19 13:46 69 19 155/70 94 04/19/19 13:40 75 19 94 04/19/19 13:30 79 20 04/19/19 13:00 94 04/19/19 12:15 67 18 95 04/19/19 11:31 98.6 F 70 20 143/92 96 04/19/19 11:06 72 20 97 04/19/19 09:57 82 19 93 04/19/19 09:19 79 18 152/80 86 L Intake and Output 04/19/19 04/20/19 04/20/19 21:59 05:59 13:59 Intake Total 290 Output Total 3000 Balance -2710 Intake: IV 50 Zosyn 2.25 gm In Dextrose 5% in 50 Water 50 ml @ 100 mls/hr IV Q12H [facility] Rx#:[id number] Oral 240 Output: Void Amount 0 Hemodialysis UF 3000 Other: Meal Dinner Percent of Meal Consumed 75% Feeding Ability Independent Weight 128 lb 8 oz Intake & Output: Intake & Output 04/19/19 04/20/19 04/20/19 21:59 05:59 13:59 Intake Total 290 Output Total 3000 Balance -2710 Weight 128 lb 8 oz Intake: IV 50 Zosyn 2.25 gm In Dextrose 5% in 50 Water 50 ml @ 100 mls/hr IV Q12H [facility] Rx#:[id number] Oral 240 Output: Void Amount 0 Hemodialysis UF 3000 Other: Meal Dinner Percent of Meal Consumed 75% Feeding Ability Independent - General Appearance General appearance: appears started age, cachectic EENT: ATNC Neck: no JVD Respiratory: no kyphosis Cardiology: mid-systolic murmur Gastrointestinal: normoactive bowel sounds Integumentary: no rash Neurologic: no focal deficit - Lab 04/19/19 04:00 04/20/19 04:00 Most recent lab results Calcium 9.1 mg/dl (8.6-10.4) 04/20/19 04:00 Phosphorus 2.8 mg/dL (2.7-4.5) 04/20/19 04:00 Magnesium 2.0 mg/dL (1.6-2.5) 04/20/19 04:00 Assessment and Plan (1) ESRD (end stage renal disease) on dialysis Status: Chronic Priority: Medium Comment: She had dialysis yesterday she is better. Will dialyse today as her regular treatment and remove additional fluid. She will have CT before HD. BP, will add lisinopril 20mg po qhs in addition to amlodipine and clonidine #2. Also add clonidine prn.
[2019-04-20] MEDS: TIOTROPIUM BROMIDE 18 MCG INHALANT INH SCH (10:03)
[2019-04-20] MEDS ORDERED: IOPAMIDOL 100 ML BOTTLE IV ONE (10:05)
--- NOTE | 2019-04-20 12:04 | Cat Scan Report ---
CLINICAL INFORMATION: Abdominal pain COMPARISON: Abdomen and pelvic CT scan 02/23/2015 and 02/02/2019 TECHNIQUE: Following enteric contrast, 80 cc of Isovue-370 were injected intravenously, and 60 seconds later, 0.625 mm helical slices were obtained from the mid heart through the subtrochanteric regions. Following reconstruction, 2.5 mm sagittal, coronal and axial reformatted images were processed and reviewed at bone, lung and soft tissue windows. Five minutes later, 0.625 mm helical slices were obtained from the mid heart through the kidneys and viewed at soft tissue windows.The exam was performed using radiation dose optimization techniques including, but not limited to, automated exposure control, adjustment of the mA and/or kV according to patient size and use of iterative reconstruction technique. FINDINGS: Lung bases show moderate emphysema. There is moderate patchy airspace disease in the medial and posterior basilar segments of the lower lobes which has actually improved from the most recent CT two months ago. It may represent residual infiltrate or organizing fibrosis. There are no effusions. The heart is mildly enlarged, but unchanged. Moderate calcification seen in the right coronary artery. Abdominal images show the liver is unremarkable. The gallbladder is surgically absent. There is marked dilatation of the intrahepatic, common hepatic and common bile ducts which have increased from previous study. On today's examination the suprapancreatic common bile duct is 16 mm. On the study two months prior, it was only 12 mm and the common bile duct was normal - 6 mm on the remote 2015 CT. there is no evidence of stone or mass in the ampullary region to explain ductal dilatation: presumably there is post cholecystectomy papillar stenosis.. The pancreatic duct is also mildly dilated colon 3 mm. Pancreatic parenchyma is unremarkable. Both kidneys are markedly atrophic suggesting end-stage renal disease: The right is 6.17 cm in length and the left is 6.4 cm in length. No change. Bilateral renal cysts are stable. Mild bilateral adrenal hyperplasia is unchanged. The spleen is normal. The aorta is normal in diameter with heavy calcific plaque in the abdominal aorta and branches. The stomach, small and large bowel are symmetrically dilated small compatible with moderate ileus. Large amount of stool present throughout the colon particularly the rectum related. Images of the pelvis show mild wall thickening of the urinary bladder. Hysterectomy changes noted. The 2.9 x 2 cm ovoid soft tissue nodule with heavy calcification in the right adnexa presumably represents retained right ovary. The imaging appearance is identical to the 2015 study - it should should be considered benign. There is no adenopathy, free air or free fluid. The bone windows show no osseous abnormality. IMPRESSION: 1. Moderate ileus with a large amount of colonic stool compatible with constipation. No other definite cause identified for abdominal pain. 2. Moderate dilatation of the intrahepatic and extra hepatic ducts increasing from prior CT. There is no evidence of stone or mass in the ampullary region of the distal common bile duct. Presumably, patient has post cholecystectomy papillary stenosis. Consider GI referral for papillotomy. 3. Moderate patchy airspace disease in both posterior lower lobes showing slight improvement compared with exam two months prior. This could indicate persistent infiltrate, aspiration or, now, organizing fibrosis. 4. 2.9 x 2.1 cm soft tissue nodule in the expected location right ovary which contains very heavy clumped calcification. It is identical radiographically from the 2015 CT and should be considered benign. 5. Marked renal atrophy compatible with end-stage renal disease stable. Scattered small simple cysts on the kidneys stable 6. Mild bilateral adrenal hyperplasia - stable. 7. Diffuse wall thickening of the urinary bladder unchanged from previous study - possible cystitis Interpreted and Authenticated by: Joe Centeno 04/20/19
[2019-04-20] MEDS ORDERED: LACTULOSE 20 GM/30 ML ORAL.SOL PO PRN (12:31)
[2019-04-20] MEDS ORDERED: DEXTROSE 31 GM ORAL.SUSP PO PRN (12:31)
[2019-04-20] MEDS ORDERED: POLYETHYLENE GLYCOL 3350 17 GM PACKET PO PRN (12:31)
[2019-04-20] MEDS ORDERED: POTASSIUM CHLORIDE 20 MEQ TABLET PO PRN ×2 (12:31)
[2019-04-20] MEDS ORDERED: ACETAMINOPHEN 325 MG TABLET PO PRN (12:31)
[2019-04-20] MEDS ORDERED: MAGNESIUM SULFATE 2 GM/50 ML BAG IV PRN (12:31)
[2019-04-20] MEDS ORDERED: IPRATROPIUM/ALBUTEROL 3 ML AMPUL.NEB NEB PRN (12:31)
[2019-04-20] MEDS ORDERED: DEXTROSE 50% 50 ML VIAL IV PRN (12:31)
[2019-04-20] MEDS ORDERED: SENNOSIDES 1 TABLET PO PRN (12:31)
[2019-04-20] MEDS ORDERED: PROMETHAZINE 25 MG TABLET PO PRN (12:31)
[2019-04-20] MEDS ORDERED: ONDANSETRON 4 MG/2 ML VIAL IV PRN (12:31)
[2019-04-20] MEDS: predniSONE 20 MG TABLET PO SCH (13:27)
[2019-04-20] MEDS: POLYVINYL ALCOHOL OPHTH DROPS 15ML BOTTLE OU SCH ×3 (13:28→22:11)
[2019-04-20] MEDS: MUPIROCIN OINT 2% 22GM NARES SCH ×2 (13:29→22:11)
[2019-04-20] MEDS: ASPIRIN 81 MG TAB.CHEW PO SCH ×2 (13:29→16:30)
[2019-04-20] MEDS: CITALOPRAM 20 MG TABLET PO SCH ×2 (13:29→16:31)
[2019-04-20] MEDS: POLYETHYLENE GLYCOL 3350 17 GM PACKET PO SCH (13:30)
[2019-04-20] MEDS: HEPARIN 5,000 UNIT/ML VIAL SQ SCH ×3 (13:30→22:12)
[2019-04-20] MEDS: DOCUSATE SODIUM 100 MG CAPSULE PO SCH ×3 (13:30→22:11)
[2019-04-20] MEDS: ANORO ELLIPTA INH SCH (13:30)
[2019-04-20] MEDS: SENNOSIDES 1 TABLET PO SCH (13:31)
[2019-04-20] MEDS: LIDOCAINE PATCH TOPICAL SCH ×2 (13:31→16:35)
[2019-04-20] MEDS: CLOPIDOGREL 75 MG TABLET PO SCH ×2 (13:31→16:31)
[2019-04-20] MEDS: AMOXICILLIN/POTASSIUM CLAV 500 MG TABLET PO SCH (16:32)
[2019-04-20] MEDS: AZITHROMYCIN 500 MG in DEXTROSE 5% IN WATER 250 ML IV SCH (16:35)
[2019-04-20 16:51] LABS: Creatine Kinase MB 1.8 ng/ml (0-2.9)
[2019-04-20] MEDS ORDERED: AMOXICILLIN/POTASSIUM CLAV 500 MG TABLET PO SCH (17:30)
[2019-04-20] MEDS ORDERED: MELATONIN 3 MG TABLET PO SCH (21:00)
[2019-04-20] MEDS ORDERED: FAMOTIDINE/PF 20 MG/2 ML VIAL IV SCH (21:00)
[2019-04-20] MEDS ORDERED: LISINOPRIL 20 MG TABLET PO SCH ×2 (21:00)
[2019-04-20] MEDS ORDERED: LIDOCAINE PATCH TOPICAL SCH (22:00)
[2019-04-21] MEDS: IPRATROPIUM/ALBUTEROL 3 ML AMPUL.NEB NEB SCH ×2 (01:03→09:18)
[2019-04-21] MEDS: 0.9 % SODIUM CHLORIDE 10 ML SYRINGE IV SCH (05:55)
[2019-04-21 07:08] LABS: Blood Urea Nitrogen 29 mg/dl (8-23); Calcium 9.8 mg/dl (8.6-10.4); Carbon Dioxide 24 mmol/L (22-30); Chloride 97 mmol/L (96-108); Glomerular Filtration Rate 23; Glucose 116 mg/dL (70-105)
[2019-04-21] MEDS ORDERED: amLODIPine 10 MG TABLET PO SCH (07:30)
[2019-04-21] MEDS ORDERED: METOPROLOL TARTRATE 25 MG TABLET PO SCH (07:30)
[2019-04-21] MEDS: INSULIN LISPRO 1 UNIT/0.01 ML UNIT SQ SCH (07:59)
[2019-04-21] MEDS: CALCIUM ACETATE 667 MG CAPSULE PO SCH (08:06)
[2019-04-21] MEDS: LACTOBACILLUS 1 CAPSULE PO SCH (08:06)
[2019-04-21] MEDS: predniSONE 20 MG TABLET PO SCH (08:06)
[2019-04-21] MEDS: CITALOPRAM 20 MG TABLET PO SCH (08:25)
[2019-04-21] MEDS: DOCUSATE SODIUM 100 MG CAPSULE PO SCH (08:25)
[2019-04-21] MEDS: AMOXICILLIN/POTASSIUM CLAV 500 MG TABLET PO SCH (08:25)
[2019-04-21] MEDS: CLOPIDOGREL 75 MG TABLET PO SCH (08:25)
[2019-04-21] MEDS: ASPIRIN 81 MG TAB.CHEW PO SCH (08:25)
[2019-04-21] MEDS: POLYVINYL ALCOHOL OPHTH DROPS 15ML BOTTLE OU SCH (08:26)
[2019-04-21] MEDS: HEPARIN 5,000 UNIT/ML VIAL SQ SCH (08:26)
[2019-04-21] MEDS: MUPIROCIN OINT 2% 22GM NARES SCH (08:26)
--- NOTE | 2019-04-21 08:56 | Nephrology Progress Note ---
Subjective Patient information: Note initiated : 04/21/19 at 8:53 am Service Date, if different from initiated Date: [] Patient: Covert,Cherelle a 63 y/o F admitted on 04/18/19 for N/V; SOB. Chief Complaint: [] Feels better. Breathing is a lot better. Has not had a BM. Objective - Vital Signs Vital signs: Vital Signs Temp Pulse Pulse Resp BP BP Pulse Ox 04/21/19 08:00 97.7 F 78 18 128/68 99 04/21/19 07:58 77 12 04/21/19 06:30 81 04/21/19 04:00 97.8 F 78 22 128/56 97 04/21/19 00:20 84 24 H 120/50 97 04/20/19 20:00 98.4 F 79 24 H 122/54 93 04/20/19 17:05 79 22 04/20/19 16:53 88 L 04/20/19 16:46 153/104 04/20/19 16:31 174/87 04/20/19 16:15 156/84 04/20/19 16:00 189/81 04/20/19 15:45 148/87 04/20/19 15:30 148/87 04/20/19 15:25 163/91 04/20/19 15:24 164/96 04/20/19 15:23 97.9 F 22 151/97 92 04/20/19 15:22 158/106 04/20/19 15:21 140/103 04/20/19 15:15 167/93 04/20/19 15:03 97.8 F 80 151/97 04/20/19 15:00 164/99 04/20/19 14:57 80 164/99 04/20/19 14:46 80 151/92 04/20/19 14:45 151/92 04/20/19 14:30 76 146/129 04/20/19 14:28 140/96 04/20/19 14:15 128/93 04/20/19 14:13 82 128/93 04/20/19 14:01 74 148/93 04/20/19 14:00 148/93 04/20/19 13:48 162/99 04/20/19 13:45 83 149/95 04/20/19 13:30 145/97 04/20/19 13:28 84 145/97 04/20/19 13:15 87 150/103 04/20/19 13:00 144/88 04/20/19 12:59 76 144/88 04/20/19 12:50 156/97 04/20/19 12:47 75 156/97 04/20/19 12:30 138/81 04/20/19 12:29 74 138/81 04/20/19 12:20 73 149/86 04/20/19 12:15 149/86 04/20/19 12:01 73 143/82 04/20/19 12:00 143/82 04/20/19 11:45 144/91 04/20/19 11:44 75 144/91 04/20/19 11:31 74 147/89 04/20/19 11:30 147/89 04/20/19 11:16 73 147/79 04/20/19 11:15 147/79 04/20/19 11:10 151/77 04/20/19 11:05 98.4 F 73 151/77 04/20/19 11:00 97.5 F 146/75 04/20/19 10:55 143/83 04/20/19 09:09 74 20 04/20/19 09:01 20 156/82 94 04/20/19 09:00 17 98 Intake and Output 04/20/19 04/21/19 04/21/19 21:59 05:59 13:59 Intake Total 240 Output Total 2900 Balance -2660 Intake: Tube Feeding 240 Output: Urine Catheter Amount 100 Hemodialysis UF 2800 Other: Urine Appearance Clear Urine Color Bright Yellow Urine Odor Normal Weight 124 lb 6.4 oz Intake & Output: Intake & Output 04/20/19 04/21/19 04/21/19 21:59 05:59 13:59 Intake Total 240 Output Total 2900 Balance -2660 Weight 124 lb 6.4 oz Intake: Tube Feeding 240 Output: Urine Catheter Amount 100 Hemodialysis UF 2800 Other: Urine Appearance Clear Urine Color Bright Yellow Urine Odor Normal - General Appearance General appearance: cachectic, chronically ill EENT: ATNC Neck: no JVD Respiratory: no kyphosis Cardiology: mid-systolic murmur Gastrointestinal: hypoactive bowel sounds Integumentary: no rash Neurologic: no focal deficit - Lab 04/19/19 04:00 04/21/19 05:04 Most recent lab results Calcium 9.8 mg/dl (8.6-10.4) 04/21/19 05:04 Phosphorus 2.8 mg/dL (2.7-4.5) 04/20/19 04:00 Magnesium 2.0 mg/dL (1.6-2.5) 04/20/19 04:00 Assessment and Plan (1) ESRD (end stage renal disease) on dialysis Status: Chronic Priority: Medium Comment: She had dialysis yesterday she is better. BP, added lisinopril 20mg po qhs in addition to amlodipine and clonidine #2. Also add clonidine prn. BP better Constipation.
[2019-04-21] MEDS ORDERED: POLYETHYLENE GLYCOL 3350 17 GM PACKET PO SCH (09:00)
[2019-04-21] MEDS ORDERED: TIOTROPIUM BROMIDE 18 MCG INHALANT INH SCH (09:00)
[2019-04-21] MEDS ORDERED: ANORO ELLIPTA INH SCH (09:00)
[2019-04-21] MEDS ORDERED: SENNOSIDES 1 TABLET PO SCH (09:00)
[2019-04-21] MEDS: LIDOCAINE PATCH TOPICAL SCH (09:45)
--- NOTE | 2019-04-21 09:52 | Discharge Summary ---
Medical - DS: Prov Patient information: Note initiated : 04/21/19 at 9:49 am Service Date, if different from initiated Date: [] Patient: Ronnit,Cherelle gonzalez 63 y/o F admitted on 04/18/19 for N/V; SOB. Chief Complaint: [] Date of admission: 04/18/19 15:35 Discharge date: 04/21/19 Primary care physician: Leta Araujo Consults: 04/18/19 14:12 Consult to Physician [CONS] Stat Comment: Consulting Provider: Chaitayna Baldwin Reason For Exam: Physician to Consult 04/18/19 15:57 Consult to Physician [CONS] Routine Comment: Consulting Provider: Nathan Tafoya Reason For Exam: Physician to Consult Medical - DS: Meds - Discharge Medications Prescriptions: Amoxicillin/Potassium Clav [Augmentin] 500 mg PO BIDCC #10 tab Prescription Printed Lisinopril [Zestril] 20 mg PO HS #30 tab Prescription Printed Active and Home Medications: Home Medications Citalopram Hydrobromide [Celexa] 20 mg PO DAILY 07/11/15 [History Confirmed Last Taken 04/16/19] Aspirin [Aspirin EC] 81 mg PO DAILY 07/18/18 [History Confirmed 04/18/19 Last Taken 04/16/19] Clopidogrel Bisulfate [Plavix] 75 mg PO DAILY 07/18/18 [History Confirmed 03/28 10/12 Last Taken 04/17/19] amLODIPine [Norvasc] 10 mg PO MOWEFR@0500 09/20/18 [History Confirmed 04/18/19 Last Taken 04/18/19] cloNIDine [Catapres-Tts 2] 1 patch TOPICAL FR@0909/20/18 [History Confirmed 04/18/19 Last Taken 04/15/19] Metoprolol Tartrate [Lopressor] 25 mg PO MOWEFR@0500 11/05/18 [History Confirmed 04/18/19 Last Taken 04/18/19] Anoro Ellipta [Umeclidinium-Vilanterol 62.5-25 Mcg/Inh] 1 puff INH DAILY 04/18/19 [History Confirmed 04/18/19 Last Taken 04/16/19] Calcium Acetate [Phoslo] 667 mg PO TIDCC 04/18/19 [History Confirmed 04/18/19 Last Taken 04/16/19] Dextran 70/Hypromellose [Artificial Tears] 1 gtt OU TID 04/18/19 [History Confirmed 04/18/19 Last Taken 04/16/19] Famotidine [Heartburn Prevention] 20 mg PO DAILY 04/18/19 [History Confirmed 04/18/19 Last Taken 04/16/19] Ipratropium/Albuterol [Duoneb] 3 ml NEB Q6H 04/18/19 [History Confirmed 04/18/19 Last Taken 04/17/19] L.acidoph,Paracasei, B.lactis [Probiotic] 1 cap PO BIDCC 04/18/19 [History Confirmed 04/18/19 Last Taken 04/16/19] Lidocaine [Aspercreme] 1 patch TOPICAL DAILY 04/18/19 [History Confirmed 04/18/19 Last Taken 04/17/19] Megestrol Acetate [Megace] 400 mg PO BID 04/18/19 [History Confirmed 04/18/19 Last Taken Unknown] Melatonin [Melatin] 3 mg PO HS 04/18/19 [History Confirmed 04/18/19 Last Taken 04/17/19] Metoprolol Tartrate [Lopressor] 25 mg PO SUTUTHSA@0730 04/18/19 [History Confirmed 04/18/19 Last Taken 04/17/19] Pantoprazole [Protonix] 40 mg PO QAMAC 04/18/19 [History Confirmed 04/18/19 Last Taken 04/17/19] Polyethylene Glycol 3350 [Miralax] 17 gm PO DAILY 04/18/19 [History Confirmed 04/18/19 Last Taken Unknown] Sennosides [Senna] 8.6 mg PO DAILY 04/18/19 [History Confirmed 04/18/19 Last Taken Unknown] Tiotropium [place] [Spiriva] 18 mcg INH DAILY 04/18/19 [History Confirmed 04/18/19 Last Taken Unknown] amLODIPine [Norvasc] 10 mg PO SUTUTHSA@0730 04/18/19 [History Confirmed 04/18/19 Last Taken 04/17/19] Ondansetron HCl [Zofran] 4 mg PO Q6HP PRN 04/19/19 [History Confirmed 04/19/19 Last Taken Unknown] Simethicone [Mylicon] 80 mg CHEWED DAILYP PRN 04/19/19 [History Confirmed 04/19/19 Last Taken Unknown] traZODone HCL [Desyrel] 50 mg PO HSP PRN 04/19/19 [History Confirmed 04/19/[address] Taken Unknown] Amoxicillin/Potassium Clav [Augmentin] 500 mg PO BIDCC #10 tab 04/21/19 [Rx Last Taken Unknown] Lisinopril [Zestril] 20 mg PO HS #30 tab 04/21/19 [Rx Last Taken Unknown] Medical - DS: Hosp Hospital Course: *Acute on chronic hypoxic/hypercapnic respiratory failure: 2/2 AECOPD/pulm fibrosis/probable PNA and volume overload -on 3L NC as of this morning -CTA no PE, chronic infiltrates mildly better than [address], pulm nodules unchanged *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 harvey outpt *Pneumonia, likely aspiration (has had multiple hospitalizations for same including aspiration PNA - not compliant with dysphagia diet *Pulmonary fibrosis: *Pulmonary nodules: stable over past 4mos, not seen on prior 2014 image, *ESRD: follows with Miche[facility] *met/resp acidosis: improved *Anemia, chronic: *h/o dCHF: *DM: *h/o CVA's: *Vascular Dementia: *HTN/HLD: *Depression/anxiety: on sertraline and quetiapine *Tobacco abuse: *Hyperkalemia: Received dialysis morning, do not treat per Dr. Tafoya discussion with ED *Generalized weakness/deconditioning/debility/failure to thrive: *Goals of care: Poor functional status, multiple hospitalizations, decline. Daughter is POA. -no aggressive interventions, and if declines will transition towards comfort focus Discharge diagnosis *Acute on chronic hypoxic/hypercapnic respiratory failure: 2/2 AECOPD/pulm fibrosis/probable PNA and volume overload -on 3L NC as of this morning -CTA no PE, chronic infiltrates mildly better than [address], pulm nodules unchanged -has seen dr. harvey pulmonology outpt *Pneumonia, likely aspiration continue for additional 5 days oral Augmentin *Hyperkalemia: Resolved with HD *Pulmonary fibrosis: On home oxygen 3 L *Pulmonary nodules: stable over past 4mos, not seen on prior 2014 image, *ESRD: follows with Tafoya. Continue HD per nephrology Poorly controlled hypertension-nephrology recommends addition of lisinopril 20 mg at bedtime. *met/resp acidosis: improved *Anemia, chronic: *h/o dCHF: *DM: *h/o CVA's: *Vascular Dementia *Depression/anxiety: on sertraline and quetiapine *Tobacco abuse: *Generalized weakness/deconditioning/debility/failure to thrive: Continue PT OT/ST eval at [facility] *Goals of care: Poor functional status, transferred to [facility] for continued posthospitalization rehab Brief hospital course Ms. Mcpherson is a 63 year old F History of taken from daughter as well as the patient as patient is a poor historian and has poor short-term memory. Remembers waking up yesterday morning feeling short of breath which wax and wane throughout the day. Per her daughter she just been off the entire weekend very lethargic and weak. She has some nausea vomiting the other day. Per her son she passed out on them several times this morning before dialysis She denies any wheezing or fever chills. No headache. Her memory is significantly decline over the past months to year. Her appetite is significantly decreased over the past 6 months. He supposed adhere to dysphasia diet and had problems with aspiration pneumonia, but she will let not adhere to a dysphasia diet She did receive some breathing treatments which she says helped her symptoms. In the ER she was hypoxic and subsequently needed to be placed on BiPAP. She was acidotic at 7.26 pH with CO2 of 58 and a PaO2 of 72 on oxygen supplementation. chest x-ray shows moderate COPD and diffuse interstitial fibrosis which appears stable there is airspace disease in both mid and lower lungs that was unchanged from a month and a half ago. She has a chronic cough which is not changed. She was supposed to undergo dialysis today but because of the acute decline patient came to the ER instead. Patient is a DNI and initially refused BiPAP but after discussion with patient and daughter daughter talking to her she excepted BiPAP. 04/19 Slept okay, On and off. Feels breathing is improved from yesterday. Occasional cough. No overnight events or new complaints. I discussed with her regarding introduction to hospice and she was agreeable. 04/20 Feeling better today. No new complaints. No overnight events. Was on 4.5 L oxygen this morning placed on 3 L and she is doing well. That is her baseline. CT of the chest showed no PE but did show pulmonary nodules which are stable from 4 months ago. She does have a history of ovarian cancer. We will attain CT abdomen pelvis while she is here. Dialysis today. Blood pressure adjustments per nephrology. 04/21-patient doing well. Discharging as per advice from nephrology. Status post hemodialysis. On lisinopril 20 mg in addition to prior antihypertensives as per nephrology. Continue p.o. Augmentin for additional 5 days. Patient asymptomatic and feels at baseline. Discharge instructions as below. Discharge diagnosis: . - Time Spent with Patient Total time spent providing and/or coordinating discharge services: Greater than 30 minutes Medical - DS: Exam - Constitutional Vitals: Vital Signs Temp Pulse Pulse Resp BP BP Pulse Ox 04/21/19 09:21 74 16 04/21/19 08:00 97.7 F 78 18 128/68 99 04/21/19 07:58 77 12 04/21/19 06:30 81 04/21/19 04:00 97.8 F 78 22 128/56 97 04/21/19 00:20 84 24 H 120/50 97 04/20/19 20:00 98.4 F 79 24 H 122/54 93 04/20/19 17:05 79 22 04/20/19 16:53 88 L 04/20/19 16:46 153/104 04/20/19 16:31 174/87 04/20/19 16:15 156/84 04/20/19 16:00 189/81 04/20/19 15:45 148/87 04/20/19 15:30 148/87 04/20/19 15:25 163/91 04/20/19 15:24 164/96 04/20/19 15:23 97.9 F 22 151/97 92 04/20/19 15:22 158/106 04/20/19 15:21 140/103 04/20/19 15:15 167/93 04/20/19 15:03 97.8 F 80 151/97 04/20/19 15:00 164/99 04/20/19 14:57 80 164/99 04/20/19 14:46 80 151/92 04/20/19 14:45 151/92 04/20/19 14:30 76 146/129 04/20/19 14:28 140/96 04/20/19 14:15 128/93 04/20/19 14:13 82 128/93 04/20/19 14:01 74 148/93 04/20/19 14:00 148/93 04/20/19 13:48 162/99 04/20/19 13:45 83 149/95 04/20/19 13:30 145/97 04/20/19 13:28 84 145/97 04/20/19 13:15 87 150/103 04/20/19 13:00 144/88 04/20/19 12:59 76 144/88 04/20/19 12:50 156/97 04/20/19 12:47 75 156/97 04/20/19 12:30 138/81 04/20/19 12:29 74 138/81 04/20/19 12:20 73 149/86 04/20/19 12:15 149/86 04/20/19 12:01 73 143/82 04/20/19 12:00 143/82 04/20/19 11:45 144/91 04/20/19 11:44 75 144/91 04/20/19 11:31 74 147/89 04/20/19 11:30 147/89 04/20/19 11:16 73 147/79 04/20/19 11:15 147/79 04/20/19 11:10 151/77 04/20/19 11:05 98.4 F 73 151/77 04/20/19 11:00 97.5 F 146/75 04/20/19 10:55 143/83 Intake and Output 04/20/19 04/21/19 04/21/19 21:59 05:59 13:59 Intake Total 240 Output Total 2900 Balance -2660 Intake: Tube Feeding 240 Output: Urine Catheter Amount 100 Hemodialysis UF 2800 Other: Urine Appearance Clear Urine Color Bright Yellow Urine Odor Normal Weight 124 lb 6.4 oz Medical - DS: Data Labs on day of discharge: Labs from last 24 hours 04/21/19 04/20/19 04/20/19 05:04 15:30 15:30 Sodium 137 Potassium 3.8 Chloride 97 Carbon Dioxide 24 Anion Gap 16.0 BUN 29 H Creatinine 2.2 H GFR Calculation 23 Glucose 116 H Calcium 9.8 Total Creatine Kinase 22 L CK-MB (CK-2) 1.8 Troponin T 0.13 H* Preliminary micro results at discharge 04/18/19 10:12 Blood Culture - Preliminary Blood 04/18/19 09:38 Blood Culture - Preliminary Blood Medical - DS: A/P - Patient/Caregiver Discharge Instructions Activity: as per physical therapy Diet: Renal Additional Instructions: Follow-up PCP in 5 days Follow-up nephrology for hemodialysis/hypertension management I recommend SNF physician to check CBC BMP UA as a posthospital follow-up and Chest x-ray in 1 week. Antibiotics for 5 days oral Augmentin Continue aggressive bowel regimen to prevent constipation Continue fall precautions Continue aggressive PT OT evaluation and treatment at SNF. ST eval and treatment if indicated All meals on chair sitting upright at 90 degrees to prevent aspiration Return to ER if worsening fever chills shortness of breath, diarrhea, bleeding Review risk and side effect profile of medications including antibiotics. Side effect may include mild to severe reaction including rash, diarrhea, cdiff and even which can be prevented by close follow-up with PCP and monitoring for side effects Continue diet and activity as advised Discussed importance of medication adherence Please review medication list with patient prior to discharge Please schedule follow-up with PCP/Providers prior to discharge and provide printouts Prescriptions: Amoxicillin/Potassium Clav [Augmentin] 500 mg PO BIDCC #10 tab Prescription Printed Lisinopril [Zestril] 20 mg PO HS #30 tab Prescription Printed Other Amb Orders: Discharge Referrals Location: None Selected - Follow up Plan Follow up with: Leta Araujo MD [Primary Care Provider] - Nathan Tafoya MD [Physician] - Disposition: Xfer SNF Prognosis: Undetermined Rehab Potential: Fair I certify that the patient requires SNF services: Yes Overall status at discharge: patient is progressing back to baseline Medical - DS: Qual - VTE Deep Vein Thrombosis/Pulmonary Embolism Present on Admission: No
[2019-04-21] MEDS ORDERED: FLU VACC QS2019-20(6MOS UP)/PF 60 MCG/0.5 ML SYRINGE IM ONE (10:15)
[2019-04-21] MEDS ORDERED: BISACODYL 5 MG TABLET PO SCH (21:00)
[2019-04-22] MEDS ORDERED: cloNIDine TTS 2 1 PATCH PATCH TD SCH ×2 (09:00)
== END 2019-04-21 10:15 | DRG 190 ==
LOC: ED 08:00 → ICU 15:35 → MEDSUR 04-20 18:45
PROVIDERS: ADMIT Internal Medicine; ATTEND Internal Medicine

== ENCOUNTER 2019-08-03 11:30 | Inpatient (IN) ==
[2019-08-03] MEDS ORDERED: IOPAMIDOL 100 ML BOTTLE IV ONE (11:31)
[2019-08-03] MEDS ORDERED: fentaNYL 100 MCG/2 ML VIAL IV PRN (11:54)
--- NOTE | 2019-08-03 11:56 | Emergency Department Note ---
Chest Pain HPI - General Chief Complaint: Chest Pain Stated Complaint: shortness of breath, chest pain Time Seen by Provider: 08/03/19 11:48 Source: patient, EMS Mode of arrival: EMS Limitations: no limitations - History of Present Illness HPI Narrative: This is a dialysis patient that developed chest pain during her dialysis run today. She did not finish the run. The pain is in the central chest without radiation anywhere. Not much shortness of breath. She did take 4 nitro without effect. She has had a cardiac stent placed and is a DNR. - Related Data Home Medications Medication Instructions Recorded Confirmed Citalopram Hydrobromide [Celexa] 20 mg PO DAILY 07/11/15 04/18/19 Aspirin [Aspirin EC] 81 mg PO DAILY 07/18/18 04/18/19 Clopidogrel Bisulfate [Plavix] 75 mg PO DAILY 07/18/18 04/18/19 amLODIPine [Norvasc] 10 mg PO MOWEFR@0500 09/20/18 04/18/19 cloNIDine [Catapres-Tts 2] 1 patch TOPICAL FR@0900 09/20/18 04/18/19 Metoprolol Tartrate [Lopressor] 25 mg PO MOWEFR@0500 11/05/18 04/18/19 Anoro Ellipta 1 puff INH DAILY 04/18/19 04/18/19 [Umeclidinium-Vilanterol 62.5-25 Mcg/Inh] Calcium Acetate [Phoslo] 667 mg PO TIDCC 04/18/19 04/18/19 Dextran 70/Hypromellose 1 gtt OU TID 04/18/19 04/18/19 [Artificial Tears] Famotidine [Heartburn Prevention] 20 mg PO DAILY 04/18/19 04/18/19 Ipratropium/Albuterol [Duoneb] 3 ml NEB Q6H 04/18/19 04/18/19 L.acidoph,Paracasei, B.lactis 1 cap PO BIDCC 04/18/19 04/18/19 [Probiotic] Lidocaine [Aspercreme Lidocaine] 1 patch TOPICAL DAILY 04/18/19 04/18/19 Megestrol Acetate [Megace] 400 mg PO BID 04/18/19 04/18/19 Melatonin [Melatin] 3 mg PO HS 04/18/19 04/18/19 Metoprolol Tartrate [Lopressor] 25 mg PO SUTUTHSA@0730 04/18/19 04/18/19 Pantoprazole [Protonix] 40 mg PO QAMAC 04/18/19 04/18/19 Polyethylene Glycol 3350 [Miralax] 17 gm PO DAILY 04/18/19 04/18/19 Tiotropium [place] [Spiriva] 18 mcg INH DAILY 04/18/19 04/18/19 amLODIPine [Norvasc] 10 mg PO SUTUTHSA@0730 04/18/19 04/18/19 Ondansetron HCl [Zofran] 4 mg PO Q6HP PRN 04/19/19 04/19/19 Simethicone [Mylicon] 80 mg CHEWED DAILYP PRN 04/19/19 04/19/19 traZODone HCL [Desyrel] 50 mg PO HSP PRN 04/19/19 04/19/19 Previous Rx's Medication Instructions Recorded Amoxicillin/Potassium Clav 500 mg PO BIDCC #10 tab 04/21/19 [Augmentin] Lactulose [Cephulac] 30 gm PO DAILYP PRN #20 oral.ar 04/21/19 Lisinopril [Zestril] 20 mg PO HS #30 tab 04/21/19 Sennosides [Senna] 8.6 mg PO BID #60 tab 04/21/19 Allergies Allergy/AdvReac Type Severity Reaction Status Date / Time adhesive tape Allergy Mild Rash Verified 08/03/19 11:33 iodine Allergy Mild Rash Verified 08/03/19 11:33 Sulfa (Sulfonamide Allergy Mild Rash Verified 08/03/19 11:33 Antibiotics) sucralfate [From Carafate] Allergy Unknown Unknown Verified 08/03/19 11:33 Review of Systems All systems ED: reviewed and negative except as stated. Chest Pain PMH - Past Medical History [facility] Narrative: Medical History (Last Updated 12/15/18 @ 10:55 by Bhargav Gan DO) DNR (do not resuscitate) (Chronic) Chronic anticoagulation (Chronic) CAD (coronary artery disease) (Chronic) History of cervical cancer (Chronic) Chest pain (Acute) Congestive heart failure (Acute) Shortness of Breath (Acute) Acute hypercapnic respiratory failure (Acute) ESRD (end stage renal disease) on dialysis (Chronic) Fluid overload (Acute) Anemia of chronic disease (Chronic) HTN (hypertension) (Chronic) Past Surgical History (Last Updated 11/05/18 @ 12:09 by Bhargav Gan DO) S/P coronary artery stent placement (Acute) S/P hysterectomy with oophorectomy (Acute) Medical history: Reports: arthritis, CAD (coronary artery disease), CHF, chronic narcotics, COPD, DM, GI bleed, hypertension, osteoporosis, renal disease (On dialysis) Psychiatric history: Reports: anxiety, depression, PTSD - Social History smoking status: Current every day smoker Alcohol use: Reports: None Drug use: Reports: none, marijuana (occas) Physical Exam Limitations: no limitations General appearance: alert Head: atraumatic Eye: Present: normal appearance ENT: Present: normal exam Neck: Present: normal inspection Chest: Present: normal inspection Respiratory: Present: normal lung sounds bilaterally Cardiovascular: Present: regular rate, normal rhythm, normal heart sounds Neurological: Present: alert Psychiatric: Present: normal affect Skin: Present: warm, dry Course Vital Signs Temperature 98.3 F 08/03/19 11:31 Pulse Rate 85 08/03/19 11:31 Respiratory Rate 26 H 08/03/19 11:31 Blood Pressure 161/81 08/03/19 11:31 Pulse Oximetry (%) 85 L 08/03/19 11:31 Temperature 100.3 F H 08/03/19 18:34 Pulse Rate 94 H 08/03/19 18:34 Respiratory Rate 23 H 08/03/19 18:34 Blood Pressure 181/86 08/03/19 17:53 Pulse Oximetry (%) 83 L 08/03/19 18:34 Chest Pain - MDM Narrative Medical decision making narrative: Patient's troponin monica 0.17 initially which is actually low for her repeat several hours later was 0.18. We did do a d-dimer which came back at 7.75. I discussed case with Dr. Tafoya and we went ahead and did a CT angiogram which does not show a PE but does show pneumonia. She will now be admitted to the ICU by the hospitalist service with Dr. Tafoya consulting for dialysis. We will start Rocephin and Zithromax. - Lab Data Lab results reviewed: Yes I reviewed the patient's lab results. Result diagrams: 08/03/19 11:34 08/03/19 11:34 Lab Results 08/03/19 08/03/19 08/03/19 Range/Units 11:34 11:34 11:34 WBC 10.1 (4.50-11.00) K/mcL RBC 3.12 L (3.59-5.38) M/mcL Hgb 9.7 L (11.2-15.7) g/dL Hct 29.7 L (34.1-44.9) % MCV 95.2 (80.0-100.0) fL MCH 31.1 (26.0-34.0) pg MCHC 32.7 (31.0-36.0) g/dL RDW 14.7 H (11.5-14.5) % Plt Count 271 (140-440) K/mcL MPV 9.2 (7.4-10.4) fL Total Counted 100 Seg Neutrophils % 82 H (38-78) % Band Neutrophils % 1 (0-10) % Lymphocytes % 15 (15-49) % Monocytes % (Manual) 1 (1-12) % Eosinophils % (Manual) 1 (0-7) % Platelet Estimate Normal (NORMAL) RBC Morphology Normal (NORMAL) D-Dimer (0.00-0.40) ug/ml ABG Methemoglobin (0.4-1.5) % VBG pH (7.32-7.42) U VBG pCO2 (41.0-51.0) mmHg VBG pO2 (25-40) mmHg VBG HCO3 (24.0-28.0) mmol/L VBG Total CO2 (25.0-29.0) mmol/L VBG O2 Saturation (40.0-70.0) % VBG Base Excess (-2.0-2.0) VBG Lactic Acid (0.5-2.0) mmol/L Carboxyhemoglobin (0.0-1.5) % THgb Total Hemoglobin (12.0-15.0) gm/dL O2 Delivery Level Sodium 136 (133-145) mmol/L Potassium 3.1 L (3.3-5.1) mmol/L Chloride 93 L (96-108) mmol/L Carbon Dioxide 27 (22-30) mmol/L Anion Gap 16.0 (8-16) BUN 19 (8-23) mg/dl Creatinine 2.4 H (0.6-1.1) mg/dl GFR Calculation 21 Glucose 164 H (70-105) mg/dL Calcium 8.4 L (8.6-10.4) mg/dl Total Bilirubin 0.4 (0.0-1.0) mg/dL AST 23 (0-37) U/l ALT 35 (0-40) U/l Alkaline Phosphatase 120 H (39-117) U/L Total Creatine Kinase 17 L (24-170) IU/L CK-MB (CK-2) 2.4 (0-2.9) ng/ml Myoglobin 90 H (25-58) ng/ml Troponin T 0.17 H* (0-0.03) ng/ml NT-Pro-B Natriuret Pep (0-125) pg/ml Total Protein 5.8 L (5.9-8.4) gm/dL Albumin 3.9 (3.2-5.2) gm/dL Globulin 1.9 L (2.2-3.7) gm/dL Albumin/Globulin Ratio 2.1 (1.0-2.3) 08/03/19 08/03/19 08/03/19 Range/Units 11:34 11:36 15:52 WBC (4.50-11.00) K/mcL RBC (3.59-5.38) M/mcL Hgb (11.2-15.7) g/dL Hct (34.1-44.9) % MCV (80.0-100.0) fL MCH (26.0-34.0) pg MCHC (31.0-36.0) g/dL RDW (11.5-14.5) % Plt Count (140-440) K/mcL MPV (7.4-10.4) fL Total Counted Seg Neutrophils % (38-78) % Band Neutrophils % (0-10) % Lymphocytes % (15-49) % Monocytes % (Manual) (1-12) % Eosinophils % (Manual) (0-7) % Platelet Estimate (NORMAL) RBC Morphology (NORMAL) D-Dimer 7.74 H (0.00-0.40) ug/ml ABG Methemoglobin (0.4-1.5) % VBG pH (7.32-7.42) U VBG pCO2 (41.0-51.0) mmHg VBG pO2 (25-40) mmHg VBG HCO3 (24.0-28.0) mmol/L VBG Total CO2 (25.0-29.0) mmol/L VBG O2 Saturation (40.0-70.0) % VBG Base Excess (-2.0-2.0) VBG Lactic Acid 0.9 (0.5-2.0) mmol/L Carboxyhemoglobin (0.0-1.5) % THgb Total Hemoglobin (12.0-15.0) gm/dL O2 Delivery Level Sodium (133-145) mmol/L Potassium (3.3-5.1) mmol/L Chloride (96-108) mmol/L Carbon Dioxide (22-30) mmol/L Anion Gap (8-16) BUN (8-23) mg/dl Creatinine (0.6-1.1) mg/dl GFR Calculation Glucose (70-105) mg/dL Calcium (8.6-10.4) mg/dl Total Bilirubin (0.0-1.0) mg/dL AST (0-37) U/l ALT (0-40) U/l Alkaline Phosphatase (39-117) U/L Total Creatine Kinase (24-170) IU/L CK-MB (CK-2) (0-2.9) ng/ml Myoglobin (25-58) ng/ml Troponin T 0.18 H* (0-0.03) ng/ml NT-Pro-B Natriuret Pep (0-125) pg/ml Total Protein (5.9-8.4) gm/dL Albumin (3.2-5.2) gm/dL Globulin (2.2-3.7) gm/dL Albumin/Globulin Ratio (1.0-2.3) 08/03/19 08/03/19 Range/Units 15:52 15:52 WBC (4.50-11.00) K/mcL RBC (3.59-5.38) M/mcL Hgb (11.2-15.7) g/dL Hct (34.1-44.9) % MCV (80.0-100.0) fL MCH (26.0-34.0) pg MCHC (31.0-36.0) g/dL RDW (11.5-14.5) % Plt Count (140-440) K/mcL MPV (7.4-10.4) fL Total Counted Seg Neutrophils % (38-78) % Band Neutrophils % (0-10) % Lymphocytes % (15-49) % Monocytes % (Manual) (1-12) % Eosinophils % (Manual) (0-7) % Platelet Estimate (NORMAL) RBC Morphology (NORMAL) D-Dimer (0.00-0.40) ug/ml ABG Methemoglobin 0.3 L (0.4-1.5) % VBG pH 7.43 H (7.32-7.42) U VBG pCO2 42.7 (41.0-51.0) mmHg VBG pO2 151 H (25-40) mmHg VBG HCO3 27.8 (24.0-28.0) mmol/L VBG Total CO2 29.1 H (25.0-29.0) mmol/L VBG O2 Saturation 94.3 H (40.0-70.0) % VBG Base Excess 3.2 H (-2.0-2.0) VBG Lactic Acid (0.5-2.0) mmol/L Carboxyhemoglobin 4.4 H (0.0-1.5) % THgb Total Hemoglobin 8.9 L (12.0-15.0) gm/dL O2 Delivery Level Not Reportable Sodium (133-145) mmol/L Potassium (3.3-5.1) mmol/L Chloride (96-108) mmol/L Carbon Dioxide (22-30) mmol/L Anion Gap (8-16) BUN (8-23) mg/dl Creatinine (0.6-1.1) mg/dl GFR Calculation Glucose (70-105) mg/dL Calcium (8.6-10.4) mg/dl Total Bilirubin (0.0-1.0) mg/dL AST (0-37) U/l ALT (0-40) U/l Alkaline Phosphatase (39-117) U/L Total Creatine Kinase (24-170) IU/L CK-MB (CK-2) (0-2.9) ng/ml Myoglobin (25-58) ng/ml Troponin T (0-0.03) ng/ml NT-Pro-B Natriuret Pep 36660.0 H (0-125) pg/ml Total Protein (5.9-8.4) gm/dL Albumin (3.2-5.2) gm/dL Globulin (2.2-3.7) gm/dL Albumin/Globulin Ratio (1.0-2.3) - Radiology Data Radiology results reviewed: Yes I reviewed the patient's radiology results. Disposition Pt seen by MANAGER OF COMPLIANCE/PA only: No Clinical Impression: Pneumonia Disposition: Xfer As Inpt ([facility]) Condition: Fair Referrals: Leta Araujo MD [Primary Care Provider] - Time of Disposition: 18:51
--- NOTE | 2019-08-03 12:08 | XRay Report ---
HISTORY: Short of breath, chest pain FINDINGS: Moderate to severe emphysema and pulmonary fibrosis are present throughout both lungs. There is a wedge-shaped band of consolidated lung parenchyma in the right lower thorax. This band of consolidated lung tissue has enlarged since prior chest x-ray done on 04/19/19. The scattered pulmonary nodule seen on the chest CT on 04/19/19 cannot be clearly identified on chest x-ray. The heart is mildly enlarged and has increased in size since 04/19/19. The pulmonary vessels are difficult to evaluate due to the underlying severe parenchymal lung disease. There is no pleural effusion. Central venous catheter remains well-positioned. There is no widening of the mediastinum. There might be a very small right-sided pleural effusion. IMPRESSION: Moderate to severe emphysema and pulmonary fibrosis Enlarging band of atelectasis in the right lung base New onset cardiomegaly Interpreted and Authenticated by: Pipo Chavira 08/03/19
[2019-08-03 12:36] LABS: Hematocrit 29.7 % (34.1-44.9); Hemoglobin 9.7 g/dL (11.2-15.7); Mean Cell Volume 95.2 fL (80.0-100.0); Mean Corpuscular HGB Conc 32.7 g/dL (31.0-36.0); Mean Platelet Volume 9.2 fL (7.4-10.4); Platelet Count 271 K/mcL (140-440); RBC 3.12 M/mcL (3.59-5.38); Red Cell Distribution Width 14.7 % (11.5-14.5); WBC 10.1 K/mcL (4.50-11.00)
[2019-08-03 12:56] LABS: Creatine Kinase MB 2.4 ng/ml (0-2.9); Myoglobin 90 ng/ml (25-58)
[2019-08-03 13:00] LABS: ALT/SGPT 35 U/l (0-40); AST/SGOT 23 U/l (0-37); Albumin 3.9 gm/dL (3.2-5.2); Albumin/Globulin Ratio 2.1 (1.0-2.3); Alkaline Phosphatase 120 U/L (39-117); Bilirubin,Total 0.4 mg/dL (0.0-1.0); Blood Urea Nitrogen 19 mg/dl (8-23); Calcium 8.4 mg/dl (8.6-10.4); Carbon Dioxide 27 mmol/L (22-30); Chloride 93 mmol/L (96-108); Creatine Kinase 17 IU/L (24-170); Globulin 1.9 gm/dL (2.2-3.7); Glomerular Filtration Rate 21; Glucose 164 mg/dL (70-105)
[2019-08-03 13:15] LABS: Band Neutrophils % 1 % (0-10); Eosinophils % (Manual) 1 % (0-7); Lymphocytes % 15 % (15-49); Monocytes % (Manual) 1 % (1-12); Platelet Estimate NORMAL (NORMAL); RBC Morphology NORMAL (NORMAL); Segmented Neutrophils % 82 % (38-78)
[2019-08-03] MEDS ORDERED: NITROGLYCERIN/D5W 25 MG/250 ML BOTTLE IV SCH (14:00)
[2019-08-03] MEDS: 0.9 % SODIUM CHLORIDE 250 ML IV SCH (14:40)
[2019-08-03] MEDS ORDERED: IPRATROPIUM/ALBUTEROL 3 ML AMPUL.NEB NEB ONE ×2 (16:12→19:48)
[2019-08-03 16:19] LABS: ABG Methemoglobin 0.3 % (0.4-1.5); Total Hemoglobin 8.9 gm/dL (12.0-15.0); VBG Base Excess 3.2 (-2.0-2.0); VBG HCO3 27.8 mmol/L (24.0-28.0); VBG Oxygen Saturation 94.3 % (40.0-70.0); VBG PCO2 42.7 mmHg (41.0-51.0); VBG PH 7.43 U (7.32-7.42); VBG PO2 151 mmHg (25-40); VBG Total CO2 29.1 mmol/L (25.0-29.0)
[2019-08-03] MEDS ORDERED: LORazepam 2 MG/ML VIAL IV ONE (16:38)
[2019-08-03] MEDS ORDERED: ALBUTEROL SULFATE 5 MG/ML NEB SOLUTION BOTTLE NEB ONE (16:38)
[2019-08-03] MEDS ORDERED: methylPREDNISolone SOD SUCC 125 MG/2 ML VIAL IV ONE (17:43)
[2019-08-03] MEDS ORDERED: diphenhydrAMINE 50 MG/ML VIAL IV ONE (17:43)
[2019-08-03] MEDS ORDERED: AZITHROMYCIN 500 MG in DEXTROSE 5% IN WATER 250 ML IV ONE (18:44)
[2019-08-03] MEDS ORDERED: cefTRIAXone 2 GM in DEXTROSE 5% IN WATER 50 ML IV ONE (18:44)
--- NOTE | 2019-08-03 18:45 | Cat Scan Report ---
History: Respiratory failure, COPD smoker, congestive heart failure TECHNIQUE: The chest was imaged following injection of intravenous nonionic contrast scanning during the pulmonary arterial phase. Sagittal, coronal and axial MIPS images were created. Radiation exposure was limited using dose reduction technology. FINDINGS: Severe emphysema is present throughout both lungs. They are superimposed pneumonia posteriorly in both lower lobes and right middle lobe. The bibasilar infiltrates are present on the prior chest CT done on 04/19/19. There has been little change in the left side. The right side has become worse in the right middle lobe infiltrate is new. There are also very small bilateral layering pleural effusions which have developed since prior study. The main pulmonary artery is mildly enlarged compared to the ascending aorta. This indicates chronic pulmonary artery hypertension. This is a chronic stable finding. There are few scattered nodular densities in both lungs. The largest is spiculated and is located contiguous with the major fissure posteriorly in the left upper lobe. Seen on axial image #61. It measures 1.3 x 1.5 cm. Measures 1.4 x 1.7 cm the prior exam. Slightly inferior to this there is another nodule in the lingula which measures 1 cm. This is remain stable. Patient has bulky lymph nodes in the subcarinal space and there are also abnormally enlarged lymph nodes in the pretracheal retrocaval space which measure up to 2.5 cm. There are smaller lymph nodes in the axilla bilaterally. The adenopathy has become worse. The pulmonary arteries are normal without evidence of pulmonary emboli. The aorta is normal in caliber. There is calcified plaque throughout the aorta and large amount calcified plaque in the coronary arteries. The heart size is normal. There is no pericardial effusion. Patient has a small hiatus hernia. Nodule is present in the right adrenal gland. It measures approximately 1.9 cm. The visualized upper poles of both kidneys appear atrophic. IMPRESSION: Severe emphysema with superimposed pneumonia in both lower lobes and right middle lobe Pulmonary nodules in left upper lobe. These could be a neoplasm, inflammatory reaction or scar Enlarging lymph nodes in the mediastinum and laly which could be an inflammatory response to pneumonia or malignancy. Stable right adrenal nodule, unchanged since 03/01/19 Dr. Vazquez was called with the results Interpreted and Authenticated by: Pipo Chavira 08/03/19
[2019-08-03] MEDS ORDERED: SENNOSIDES 1 TABLET PO PRN (18:49)
[2019-08-03] MEDS ORDERED: LACTULOSE 20 GM/30 ML ORAL.SOL PO PRN (18:49)
--- NOTE | 2019-08-03 19:07 | Internal Med History&Physical ---
Medical - H&P: HPI Patient information: Note initiated : 08/03/19 at 7:05 pm Service Date, if different from initiated Date: [] Patient: Ronnit,Cherelle gonzalez 63 y/o F admitted on for shortness of breath, chest pain. Chief Complaint: [] History of present illness: This is a 63-year-old female with a history of end-stage renal disease on dialysis, uncontrolled hypertension, congestive heart failure, CAD status post stent x3 placement was brought to the ER due to chest pain. Patient was at the dialysis center and during dialysis patient started having chest pain and they held the dialysis and transferred to the ER. Patient chest pain continued even after giving sublingual nitro her blood pressure was in 1 70-1 80 patient had similar chest pain in the past during dialysis. Patient had a previous cardiac work-up done to 3 years ago underwent stent placement x3. Since then patient was on dual antiplatelet patient denied any anticoagulation. She was also having active shortness of breath and hypoxic oxygenation 85 to 86% she received Solu-Medrol 1 dose and DuoNeb treatment in the ER. Her initial troponin was 0.18 and repeat troponin was 0.17 and she always had slightly elevated troponin 0.3 in the past. She was also having active wheezing during my encounter with increasing cough she is an active smoker. Chest x-ray showed cardiomegaly and a underwent chest CTA due to elevated d-dimer which came back positive for pneumonia bilaterally. She was started on ceftriaxone and azithromycin in the ER. - Constitutional Constitutional: Present: chills, lethargy, malaise - EENT Eyes: Absent: blind spots, blurry vision, change in vision, decreased night vision, diplopia Ears: Absent: decreased hearing, ear pain, tinnitus Nose, mouth and throat: Absent: abnormal hearing, bleeding gums, sinus pain, sinus pressure, sore throat, throat swelling - Breasts Breasts: Absent: change in shape, mass, nipple discharge - Cardiovascular Cardiovascular: Present: chest pain, chest pain with activity, dyspnea, dyspnea on exertion, edema, pedal edema, radiating pain. Absent: lightheadedness, p aroxysmal nocturnal dyspnea, rapid heart rate, syncope - Respiratory Respiratory: Present: cough, dyspnea, dyspnea on exertion, wheezing, pain on inspirtation, chest congestion, excessive phlegm production, change in phlegm color, pain with cough. Absent: hemoptysis - Gastrointestinal Gastrointestinal: Absent: abdominal pain, change in bowel habits, change in stool character, coffee ground emesis, constipation, cramping, diarrhea - Genitourinary Genitourinary: Absent: difficulty voiding, dysmenorrhea, dyspareunia, dysuria - Musculoskeletal Musculoskeletal: Present: arthralgias. Absent: abnormal gait, joint swelling, neck pain, numbness - Neurological Neurological: Absent: abnormal speech, behavioral changes, burning sensations, confusion, convulsions - Psychiatric Psychiatric: Absent: anxiety, auditory hallucinations, behavioral changes, change in appetite - Endocrine Endocrine: Present: fatigue. Absent: change in body appearance, change in libido, cold intolerance, flushing - Hematologic/Lymphatic Hematologic/Lymphatic: Present: easy bleeding, easy bruising. Absent: lymphadenopathy - Allergic/Immunologic Allergic/Immunologic: Absent: tongue swelling, throat swelling, itchy eyes Medical - H&P: [facility] Medical history: Medical History (Last Updated 12/15/18 @ 10:55 by Bhargav Gan DO) DNR (do not resuscitate) (Chronic) Chronic anticoagulation (Chronic) CAD (coronary artery disease) (Chronic) History of cervical cancer (Chronic) Chest pain (Acute) Congestive heart failure (Acute) Shortness of Breath (Acute) Acute hypercapnic respiratory failure (Acute) ESRD (end stage renal disease) on dialysis (Chronic) Fluid overload (Acute) Anemia of chronic disease (Chronic) HTN (hypertension) (Chronic) Surgical history: Past Surgical History (Last Updated 11/05/18 @ 12:09 by Bhargav Gan DO) S/P coronary artery stent placement (Acute) S/P hysterectomy with oophorectomy (Acute) Family history: reviewed and not pertinent Social history: Continued smoking Denies any alcoholism or recreational drug use Smoking status: Current every day smoker Have you smoked in the last 12 months: Yes Time spent discussing smoking cessation with patient: 3 to 10 minutes Drug use: none Alcohol use: none Medical - H&P: Meds Home Medications Medication Instructions Recorded Confirmed Type Citalopram Hydrobromide [Celexa] 20 mg PO DAILY 07/11/15 04/18/19 History Aspirin [Aspirin EC] 81 mg PO DAILY 07/18/18 04/18/19 History Clopidogrel Bisulfate [Plavix] 75 mg PO DAILY 07/18/18 04/18/19 History amLODIPine [Norvasc] 10 mg PO MOWEFR@0500 09/20/18 04/18/19 History cloNIDine [Catapres-Tts 2] 1 patch TOPICAL FR@0900 09/20/18 04/18/19 History Metoprolol Tartrate [Lopressor] 25 mg PO MOWEFR@0500 11/05/18 04/18/19 History Anoro Ellipta 1 puff INH DAILY 04/18/19 04/18/19 History [Umeclidinium-Vilanterol 62.5-25 Mcg/Inh] Calcium Acetate [Phoslo] 667 mg PO TIDCC 04/18/19 04/18/19 History Dextran 70/Hypromellose 1 gtt OU TID 04/18/19 04/18/19 History [Artificial Tears] Famotidine [Heartburn Prevention] 20 mg PO DAILY 04/18/19 04/18/19 History Ipratropium/Albuterol [Duoneb] 3 ml NEB Q6H 04/18/19 04/18/19 History L.acidoph,Paracasei, B.lactis 1 cap PO BIDCC 04/18/19 04/18/19 History [Probiotic] Lidocaine [Aspercreme Lidocaine] 1 patch TOPICAL DAILY 04/18/19 04/18/19 History Megestrol Acetate [Megace] 400 mg PO BID 04/18/19 04/18/19 History Melatonin [Melatin] 3 mg PO HS 04/18/19 04/18/19 History Metoprolol Tartrate [Lopressor] 25 mg PO SUTUTHSA@0730 04/18/19 04/18/19 History Pantoprazole [Protonix] 40 mg PO QAMAC 04/18/19 04/18/19 History Polyethylene Glycol 3350 [Miralax] 17 gm PO DAILY 04/18/19 04/18/19 History Tiotropium [place] [Spiriva] 18 mcg INH DAILY 04/18/19 04/18/19 History amLODIPine [Norvasc] 10 mg PO SUTUTHSA@0730 04/18/19 04/18/19 History Ondansetron HCl [Zofran] 4 mg PO Q6HP PRN 04/19/19 04/19/19 History Simethicone [Mylicon] 80 mg CHEWED DAILYP PRN 04/19/19 04/19/19 History traZODone HCL [Desyrel] 50 mg PO HSP PRN 04/19/19 04/19/19 History Amoxicillin/Potassium Clav 500 mg PO BIDCC #10 tab 04/21/19 Rx [Augmentin] Lactulose [Cephulac] 30 gm PO DAILYP PRN #20 oral.ar 04/21/19 Rx Lisinopril [Zestril] 20 mg PO HS #30 tab 04/21/19 Rx Sennosides [Senna] 8.6 mg PO BID #60 tab 04/21/19 Rx Allergies Allergy/AdvReac Type Severity Reaction Status Date / Time adhesive tape Allergy Mild Rash Verified 08/03/19 11:33 iodine Allergy Mild Rash Verified 08/03/19 11:33 Sulfa (Sulfonamide Allergy Mild Rash Verified 08/03/19 11:33 Antibiotics) sucralfate [From Carafate] Allergy Unknown Unknown Verified 08/03/19 11:33 Medical - H&P: Exam - Constitutional Vitals: Temp Pulse Resp BP Pulse Ox 100.3 F H 94 H 23 H 181/86 83 L 08/03/19 18:34 08/03/19 18:34 08/03/19 18:34 08/03/19 17:53 08/03/19 18:34 General appearance: cooperative, moderate distress, obese - Head Head exam: Present: atraumatic, normal inspection, normocephalic - Expanded Head Exam Head exam: Absent: abrasion, Bearden's sign, contusion, CSF otorrhea, hematoma - Eye Eye exam: Present: conjunctival injection. Absent: nystagmus Pupils: Present: PERRL - ENT ENT exam: Present: mucous membranes moist, normal external ear exam, normal oropharynx - Expanded ENT Exam Ear exam: Absent: auricular hematoma, auricular trauma, external canal tenderness Nose & sinuses exam: Present: external nose, grossly normal, nasal mucusa, septum and turbinates normal, inflamed nasal mucosa. Absent: nasal deformity Mouth exam: Present: normal external inspection. Absent: drooling, dry mucosa, laceration, muffled voice Teeth exam: Present: dental caries - Neck Neck exam: Present: full ROM. Absent: lymphadenopathy, meningismus - Expanded Neck Exam Neck exam: Absent: anterior neck swelling, carotid bruit - Respiratory Respiratory exam: Present: accessory muscle use, prolonged expiratory phase, rales, respiratory distress, wheezes. Absent: chest wall tenderness - Cardiovascular Cardiovascular exam: Present: normal rate and rhythm, systolic murmur. Absent: clicks, diastolic murmur, JVD, tachycardia - GI/Abdominal GI/Abdominal exam: Present: normal bowel sounds, soft, distended. Absent: firm, pulsatile mass, rebound, tenderness - Extremities Exam Extremities exam: Present: full ROM, pedal edema. Absent: calf tenderness, join t swelling, normal inspection - Neurological Exam Neurological exam: Present: alert, oriented X3, reflexes normal. Absent: abnormal gait, motor sensory deficit - Psychiatric Psychiatric exam: Present: normal affect, normal mood. Absent: anxious, depressed - Skin Skin exam: Present: erythema, petechiae, rash. Absent: abrasion, cyanosis, diaphoretic Medical - H&P: Reslt - Labs CBC & Chem 7: 08/03/19 11:34 08/03/19 11:34 Labs: Short CBC 08/03/19 Range/Units 11:34 WBC 10.1 (4.50-11.00) K/mcL Hgb 9.7 L (11.2-15.7) g/dL Hct 29.7 L (34.1-44.9) % Plt Count 271 (140-440) K/mcL BMP 08/03/19 11:34 Sodium 136 Potassium 3.1 L Chloride 93 L Carbon Dioxide 27 BUN 19 Creatinine 2.4 H Glucose 164 H Calcium 8.4 L Cardiac Enzymes 08/03/19 08/03/19 08/03/19 Range/Units 11:34 11:34 15:52 Total Creatine Kinase 17 L (24-170) IU/L CK-MB (CK-2) 2.4 (0-2.9) ng/ml Troponin T 0.17 H* 0.18 H* (0-0.03) ng/ml Liver Function 08/03/19 Range/Units 11:34 Total Bilirubin 0.4 (0.0-1.0) mg/dL AST 23 (0-37) U/l ALT 35 (0-40) U/l Alkaline Phosphatase 120 H (39-117) U/L Albumin 3.9 (3.2-5.2) gm/dL - ABG Interpretation ABG results: 08/03/19 15:52 ABG Methemoglobin 0.3 L VBG pH 7.43 H VBG pCO2 42.7 VBG pO2 151 H VBG HCO3 27.8 VBG Total CO2 29.1 H VBG O2 Saturation 94.3 H VBG Base Excess 3.2 H Medical - H&P: A/P - Narrative A/P Narrative: Acute hypoxic respiratory failure Probable COPD exacerbation and bilateral community-acquired pneumonia Increasing sputum production increasing cough and shortness of breath with hypoxia Ordered duo nebs every 6 hourly and as needed Sputum Gram stain culture ordered Continued ceftriaxone and azithromycin Continue Solu-Medrol 60 every 8 hourly Monitor oxygenation Non-ST elevation IA probably type II Patient troponin was elevated 0.18 and the second troponin after 4 hours was 0.17 With end-stage renal disease this could be a stress response with a subendocardial coronary artery disease Patient had history of previous coronary artery disease Continue her home medications Continue metoprolol Ordered an echocardiogram Trend the troponin Telemetry monitoring End-stage renal disease And possible volume overload Patient appears to be having volume overload based on clinical examination and labs ER physician discussed with Dr. Tafoya and planning for further dialysis tonight Hypertensive urgency Probably due to volume overload Monitor blood pressure and restart home medications and reevaluate after dialysis Chronic anemia Hemoglobin 9.7 and will monitor Probably due to ESRD DVT prophylaxis-subcu heparin CODE STATUS-DNR, verified with the patient Expected length of stay-at least 2 midnights CPT code 26771
[2019-08-03] MEDS ORDERED: ACETAMINOPHEN 325 MG TABLET PO ONE (19:58)
[2019-08-03 20:13] LABS: ALT/SGPT 31 U/l (0-40); AST/SGOT 20 U/l (0-37); Albumin 3.7 gm/dL (3.2-5.2); Albumin/Globulin Ratio 1.9 (1.0-2.3); Alkaline Phosphatase 107 U/L (39-117); Bilirubin,Total 0.3 mg/dL (0.0-1.0); Blood Urea Nitrogen 24 mg/dl (8-23); Calcium 8.2 mg/dl (8.6-10.4); Carbon Dioxide 25 mmol/L (22-30); Chloride 96 mmol/L (96-108); Globulin 1.9 gm/dL (2.2-3.7); Glomerular Filtration Rate 16; Glucose 190 mg/dL (70-105)
[2019-08-03] MEDS: 0.9 % SODIUM CHLORIDE 10 ML SYRINGE IV SCH (21:03)
[2019-08-03] MEDS: HEPARIN 5,000 UNIT/ML VIAL SQ SCH (21:06)
[2019-08-03] MEDS ORDERED: cefTRIAXone 2 GM VIAL ONE (21:06)
[2019-08-03] MEDS: DOCUSATE SODIUM 100 MG CAPSULE PO SCH (21:06)
[2019-08-03] MEDS: ONDANSETRON 4 MG/2 ML VIAL IV PRN (22:10)
[2019-08-03] MEDS: IPRATROPIUM/ALBUTEROL 3 ML AMPUL.NEB NEB SCH (22:30)
[2019-08-03] MEDS: methylPREDNISolone SOD SUCC 40 MG/ML VIAL IV SCH (22:43)
[2019-08-03] MEDS: PIPERACILLIN SODIUM/TAZOBACTAM 3.375 GM in DEXTROSE 5% IN WATER 50 ML IV SCH (23:48)
[2019-08-04] MEDS: IPRATROPIUM/ALBUTEROL 3 ML AMPUL.NEB NEB SCH ×4 (03:47→19:01)
[2019-08-04] MEDS: 0.9 % SODIUM CHLORIDE 250 ML IV SCH (03:48)
[2019-08-04] MEDS: PIPERACILLIN SODIUM/TAZOBACTAM 3.375 GM in DEXTROSE 5% IN WATER 50 ML IV SCH (05:36)
[2019-08-04] MEDS: 0.9 % SODIUM CHLORIDE 10 ML SYRINGE IV SCH ×3 (05:37→21:23)
[2019-08-04] MEDS: methylPREDNISolone SOD SUCC 40 MG/ML VIAL IV SCH ×3 (06:06→22:52)
[2019-08-04 06:49] LABS: C-Reactive Protein 4.4 mg/dl (0.0-0.8)
[2019-08-04] MEDS: ACETAMINOPHEN 325 MG TABLET PO PRN (08:04)
[2019-08-04] MEDS: VANCOMYCIN 1,000 MG in 0.9 % SODIUM CHLORIDE 250 ML IV SCH (08:09)
[2019-08-04] MEDS: PANTOPRAZOLE 40 MG TABLET PO SCH (08:10)
[2019-08-04] MEDS ORDERED: VANCOMYCIN PER PHARMACY IV SCH (09:00)
[2019-08-04] MEDS ORDERED: cefTRIAXone 2 GM in DEXTROSE 5% IN WATER 50 ML IV SCH (09:00)
[2019-08-04 09:02] LABS: Hematocrit 27.5 % (34.1-44.9); Hemoglobin 8.7 g/dL (11.2-15.7); Mean Cell Volume 97.5 fL (80.0-100.0); Mean Corpuscular HGB Conc 31.6 g/dL (31.0-36.0); Mean Platelet Volume 9.7 fL (7.4-10.4); Platelet Count 250 K/mcL (140-440); RBC 2.82 M/mcL (3.59-5.38); Red Cell Distribution Width 14.9 % (11.5-14.5); WBC 8.5 K/mcL (4.50-11.00)
[2019-08-04] MEDS: MUPIROCIN OINT 2% 22GM NARES SCH ×2 (09:30→21:23)
[2019-08-04] MEDS: DOCUSATE SODIUM 100 MG CAPSULE PO SCH ×2 (09:30→21:22)
[2019-08-04] MEDS: HEPARIN 5,000 UNIT/ML VIAL SQ SCH ×2 (09:30→21:23)
[2019-08-04] MEDS ORDERED: AZITHROMYCIN 500 MG in DEXTROSE 5% IN WATER 250 ML IV SCH (10:00)
--- NOTE | 2019-08-04 10:45 | Consultation ---
DATE OF CONSULTATION: 08/04/2019 REFERRING PHYSICIAN: Curtis Wells MD REASON FOR HOSPITALIZATION: End-stage renal disease and volume overload. HISTORY: The patient is a 63-year-old female with past medical history significant for end-stage renal disease on hemodialysis Mondays, Wednesdays, and Fridays. She has history of COPD, history of frequent hospitalizations for chest discomfort, hypertension and diabetes. She presented with the chest discomfort to the emergency room. The pain developed when she was having dialysis. She has had workup in the past and had extensive procedures done on her heart as well. In the emergency room, she was found to have elevated D-dimer. Her troponins were stable. For that reason, she obtained a CT scan of the chest which did not show any evidence of pulmonary embolism but did show pneumonia. She was hypertensive, so we dialyzed her yesterday with removal of 3600 mL of fluid. She continued to have shortness of breath. For that reason, a consultation was obtained. PAST MEDICAL HISTORY: 1. Asipkvuaz-pk-uxmymic hypertension. 2. Chronic congestive heart failure. 3. CAD status post three stent placement, evidence of the same. 4. End-stage renal disease on hemodialysis. 5. History of cervical cancer. 6. History of acute hypercarbic respiratory failure. 7. Anemia of chronic kidney disease. PAST SURGICAL HISTORY: Status post coronary artery stent placement; hysterectomy but she does have an ovary which had a mass on it, but has been followed very carefully and decided not to intervene. SOCIAL HISTORY: She currently lives at a facility. She, I believe, still smokes. No history of alcohol or drug use. FAMILY HISTORY: Non-significant. MEDICATIONS ON ADMISSION: 1. Citalopram 20 mg daily. 2. Aspirin 81 mg daily. 3. Plavix 75 mg daily. 4. Amlodipine 10 mg daily. 5. Clonidine patch #1 once per week. 6. Metoprolol 25 mg once daily. 7. Anora Ellipta 1 p.o. daily. 8. PhosLo 667 mg p.o. t.i.d. with meals. 9. Famotidine 20 mg daily. 10.Ipratropium p.r.n. 11. Lidocaine 1 patch daily. 12. Megace 400 mg twice daily. 13. Melatonin 3 mg at night. 14. Lisinopril 20 mg at night. ALLERGIES: TAPE, IODINE, SULFA AND CARAFATE. REVIEW OF SYSTEMS: Ten systems were reviewed and as indicated. PHYSICAL EXAMINATION: GENERAL: Alert, oriented x3, not in any distress. VITAL SIGNS: Blood pressures have been 170 to 180 systolic with a diastolic in the 60s; pulse rates have been in the 90s; temperature 98 with pulse oximetry of 87 to 89%. HEENT: NC/AT. Pupils are reactive to light. External auditory canal appears normal. Oral cavity with normal mucosa. NECK: Supple. No jugular venous distention. No lymphadenopathy or thyromegaly. LUNGS: Decreased air entry bilaterally. Rales and rhonchi heard in both bases. CARDIAC: S1 and S2 heard. No S3, S4. No murmurs, no rubs. ABDOMEN: Soft, nontender, no organomegaly, positive bowel sounds. No mass, no rebound. EXTREMITIES: Did not show evidence of edema. Difficult to palpate his dorsalis pedis and posterior tibials. No skin rash or joint swellings noted. NEUROLOGIC: Grossly intact. LABORATORY DATA: White count is 8.5 with hemoglobin of 8.7 and a platelet count of 250. Sodium 137, potassium 3.3, chloride of 96, CO2 24, BUN 24 with creatinine of 2.9. Her BNP was 55,562. ASSESSMENT AND PLAN: 1. End-stage renal disease on hemodialysis. She is currently volume overloaded. She had hemodialysis last night with removal of about 3600 mL of fluid. We will attempt to remove additional fluid with the dialysis today. 2. Hypertension. Her blood pressures are significantly elevated, partly related to volume excess. We will try to remove additional fluid during dialysis. 3. Pneumonia and multiple other problems, management per hospitalist. Thank you, Dr. Wells, for referring this patient for consultation. We will follow this patient. SILVIO:nancy Job ID: [id number] Doc ID: [id number] Nathan PRUETT
[2019-08-04] MEDS ORDERED: LACTULOSE 20 GM/30 ML ORAL.SOL PO PRN (11:22)
[2019-08-04] MEDS ORDERED: SIMETHICONE 80 MG TAB.CHEW CHEWED PRN (11:22)
[2019-08-04] MEDS ORDERED: MAGNESIUM HYDROXIDE 30 ML ORAL.SUSP PO PRN (11:22)
[2019-08-04] MEDS ORDERED: BISACODYL 10 MG SUPP.RECT PR PRN (11:22)
[2019-08-04] MEDS ORDERED: BISACODYL 5 MG TABLET PO PRN (11:22)
[2019-08-04] MEDS ORDERED: IPRATROPIUM/ALBUTEROL 3 ML AMPUL.NEB NEB SCH (11:30)
[2019-08-04] MEDS ORDERED: ONDANSETRON 4 MG ODT TABLET SL PRN (11:35)
[2019-08-04] MEDS: NITROGLYCERIN 0.4 MG TAB.SUBL SL PRN ×2 (12:10→12:26)
[2019-08-04 14:24] LABS: Band Neutrophils % 1 % (0-10); Lymphocytes % 1 % (15-49); Platelet Estimate NORMAL (NORMAL); RBC Morphology NORMAL (NORMAL); Segmented Neutrophils % 98 % (38-78)
[2019-08-04] MEDS: PIPERACILLIN SODIUM/TAZOBACTAM 2.25 GM in DEXTROSE 5% IN WATER 50 ML IV SCH ×2 (14:41→22:52)
[2019-08-04] MEDS ORDERED: METOPROLOL TARTRATE 25 MG TABLET PO ONE (14:58)
[2019-08-04] MEDS ORDERED: amLODIPine 10 MG TABLET PO ONE (14:59)
[2019-08-04] MEDS: CALCIUM ACETATE 667 MG CAPSULE PO SCH ×2 (15:08→19:05)
[2019-08-04] MEDS: POLYVINYL ALCOHOL OPHTH DROPS 15ML BOTTLE OU SCH ×2 (15:09→21:17)
[2019-08-04] MEDS: INSULIN LISPRO 1 UNIT/0.01 ML UNIT SQ SCH ×3 (15:09→21:24)
[2019-08-04] MEDS: BENZONATATE 100 MG CAPSULE PO PRN (17:41)
[2019-08-04] MEDS: LACTOBACILLUS 1 CAPSULE PO SCH (17:41)
[2019-08-04] MEDS: HYDROcodone/APAP 5/325MG TABLET PO PRN (17:41)
[2019-08-04 19:59] LABS: ALT/SGPT 41 U/l (0-40); AST/SGOT 23 U/l (0-37); Albumin 4.2 gm/dL (3.2-5.2); Albumin/Globulin Ratio 1.8 (1.0-2.3); Alkaline Phosphatase 129 U/L (39-117); Bilirubin,Total 0.3 mg/dL (0.0-1.0); Blood Urea Nitrogen 47 mg/dl (8-23); Calcium 8.6 mg/dl (8.6-10.4); Carbon Dioxide 21 mmol/L (22-30); Chloride 97 mmol/L (96-108); Globulin 2.3 gm/dL (2.2-3.7); Glomerular Filtration Rate 11; Glucose 92 mg/dL (70-105)
[2019-08-04] MEDS ORDERED: traZODone HCL 50 MG TABLET PO PRN (21:00)
[2019-08-04] MEDS: LISINOPRIL 20 MG TABLET PO SCH (21:22)
[2019-08-04] MEDS: METOPROLOL TARTRATE 25 MG TABLET PO SCH (21:22)
[2019-08-04] MEDS: MELATONIN 3 MG TABLET PO SCH (21:25)
[2019-08-04] MEDS: SENNOSIDES 1 TABLET PO SCH (21:25)
--- NOTE | 2019-08-04 22:51 | Internal Med Progress Note ---
Medical - PN: Subj Patient information: Note initiated : 08/04/19 at 10:49 pm Service Date, if different from initiated Date: [] Patient: Covert,Cherelle gonzalez 63 y/o F admitted on 08/03/19 for shortness of breath, chest pain. Chief Complaint: [] Interval history: 63-year-old female with a history of end-stage renal disease on dialysis, uncontrolled hypertension, congestive heart failure, CAD status post stent x3 placement was brought to the ER due to chest pain. Patient was at the dialysis center and during dialysis patient started having chest pain and they held the dialysis and transferred to the ER. Patient chest pain continued even after giving sublingual nitro her blood pressure was in 1 70-1 80 patient had similar chest pain in the past during dialysis. Patient had a previous cardiac work-up done to 3 years ago underwent stent placement x3. Since then patient was on dual antiplatelet patient denied any anticoagulation. She was also having active shortness of breath and hypoxic oxygenation 85 to 86% she received Solu- Medrol 1 dose and DuoNeb treatment in the ER. Her initial troponin was 0.18 and repeat troponin was 0.17 and she always had slightly elevated troponin 0.3 in the past. She was also having active wheezing during my encounter with increasing cough she is an active smoker. Chest x-ray showed cardiomegaly and a underwent chest CTA due to elevated d-dimer which came back positive for pneumonia bilaterally. She was started on ceftriaxone and azithromycin in the ER. 08/04 Overnight patient went into severe respiratory failure requiring BiPAP and high flow oxygen. Patient was also very anxious discussed with the patient and daughter multiple times and patient reconfirms she is a DNR does not want any intubation even if she is dying. Antibiotic broadened to vancomycin and Zosyn. Using morphine for anxiety and breathing difficulty. Updated nephrology and go t the dialysis discussed with the nephrology this morning and plan is to continue dialysis. Respiratory failure slightly improved compared to yesterday. Pertinent ROS: Respiratory-continued having shortness of breath and increasing sputum production Cardiovascular-intermittent chest pain Abdominal-no diarrhea no constipation Neuro-no focal neuro deficit Psychiatry-appears to be anxious no depression - Constitutional Vitals: Vital Signs Temp Pulse Resp BP Pulse Ox 97.8 F 79 22 161/91 96 08/04/19 20:07 08/04/19 22:01 08/04/19 22:01 08/04/19 22:01 08/04/19 22:01 Period Temp Pulse Resp BP Sys/[place] Pulse Ox Last 24 Hr 97.2 F-98.9 F 76-111 13-37 84-186/50-154 79-100 Intake and Output 08/04/19 08/04/19 08/05/19 13:59 21:59 05:59 Intake Total 732 570 Output Total 3400 Balance -2668 570 Weight 146 lb 12.8 oz Patient Weight 08/05/19 05:59 Weight 146 lb 12.8 oz Intake & Output: Intake & Output 08/04/19 08/04/19 08/05/19 13:59 21:59 05:59 Intake Total 732 570 Output Total 3400 Balance -2668 570 Weight 146 lb 12.8 oz Intake: IV 412 50 Sodium Chloride 0.9% 250 ml @ 91 20 mls/hr IV .[id number] [facility] Rx#: [id number] NITROGLYCERIN/D5W 25 mg In 250 21 ml @ 5 MCG/MIN 3 mls/hr IV . Q24H [facility] Rx#:[id number] Zosyn 2.25 gm In Dextrose 5% in 50 Water 50 ml @ 100 mls/hr IV Q8H [facility] Rx#:[id number] Zosyn 3.375 gm In Dextrose 5% 50 in Water 50 ml @ 100 mls/hr IV Q6H [facility] Rx#:[id number] Vancomycin 1,000 mg In Sodium 250 Chloride 0.9% 250 ml @ 250 mls/ hr IV Q24H [facility] Rx#:[id number] Oral 320 520 Output: Void Amount 0 Hemodialysis UF 3400 Other: Meal Breakfast Percent of Meal Consumed 100% Feeding Ability Assist with Tray Set Up Stool Size Smear Stool Color Brown Stool Consistency Soft - Head Head exam: Present: atraumatic, normal inspection - Eye Eye exam: Absent: nystagmus, periorbital swelling, periorbital tenderness, scleral icterus - ENT ENT exam: Present: mucous membranes moist, normal oropharynx - Neck Neck exam: Present: normal inspection. Absent: lymphadenopathy, meningismus - Respiratory Respiratory exam: Present: accessory muscle use, chest wall tenderness, decreased breath sounds, prolonged expiratory phase, rales, respiratory distress, rhonchi, wheezes - Cardiovascular Cardiovascular exam: Present: systolic murmur. Absent: gallop, JVD - GI/Abdominal GI/Abdominal exam: Present: normal bowel sounds, soft, distended - Neurological Exam Neurological exam: Present: alert, oriented X3, reflexes normal. Absent: altered, motor sensory deficit - Psychiatric Psychiatric exam: Present: agitated, anxious. Absent: depressed - Skin Skin exam: Present: erythema, normal color. Absent: cyanosis, mottled Medical - PN: Obj Da - Labs CBC & Chem 7: 08/04/19 07:25 08/04/19 19:00 Labs: Abnormal Lab Results 08/04/19 08/04/19 08/04/19 19:00 07:25 07:25 RBC 2.82 L Hgb 8.7 L Hct 27.5 L RDW 14.9 H Seg Neutrophils % 98 H Lymphocytes % 1 L D-Dimer ABG Methemoglobin VBG pH VBG pO2 VBG Total CO2 VBG O2 Saturation VBG Base Excess Carboxyhemoglobin Total Hemoglobin Potassium Chloride Carbon Dioxide 21 L Anion Gap 19.0 H BUN 47 H Creatinine 4.1 H Glucose Calcium ALT 41 H Alkaline Phosphatase 129 H Total Creatine Kinase Myoglobin Troponin T 0.18 H* C-Reactive Protein NT-Pro-B Natriuret Pep Total Protein Globulin 08/04/19 08/04/19 08/03/19 04:40 01:00 19:06 RBC Hgb Hct RDW Seg Neutrophils % Lymphocytes % D-Dimer ABG Methemoglobin VBG pH VBG pO2 VBG Total CO2 VBG O2 Saturation VBG Base Excess Carboxyhemoglobin Total Hemoglobin Potassium Chloride Carbon Dioxide Anion Gap BUN Creatinine Glucose Calcium ALT Alkaline Phosphatase Total Creatine Kinase Myoglobin Troponin T 0.20 H* 0.17 H* C-Reactive Protein 4.4 H NT-Pro-B Natriuret Pep Total Protein Globulin 08/03/19 08/03/19 08/03/19 19:06 15:52 15:52 RBC Hgb Hct RDW Seg Neutrophils % Lymphocytes % D-Dimer ABG Methemoglobin 0.3 L VBG pH 7.43 H VBG pO2 151 H VBG Total CO2 29.1 H VBG O2 Saturation 94.3 H VBG Base Excess 3.2 H Carboxyhemoglobin 4.4 H Total Hemoglobin 8.9 L Potassium Chloride Carbon Dioxide Anion Gap BUN 24 H Creatinine 2.9 H Glucose 190 H Calcium 8.2 L ALT Alkaline Phosphatase Total Creatine Kinase Myoglobin Troponin T C-Reactive Protein NT-Pro-B Natriuret Pep 99462.0 H Total Protein 5.6 L Globulin 1.9 L 08/03/19 08/03/19 08/03/19 15:52 11:34 11:34 RBC Hgb Hct RDW Seg Neutrophils % Lymphocytes % D-Dimer 7.74 H ABG Methemoglobin VBG pH VBG pO2 VBG Total CO2 VBG O2 Saturation VBG Base Excess Carboxyhemoglobin Total Hemoglobin Potassium Chloride Carbon Dioxide Anion Gap BUN Creatinine Glucose Calcium ALT Alkaline Phosphatase Total Creatine Kinase Myoglobin Troponin T 0.18 H* 0.17 H* C-Reactive Protein NT-Pro-B Natriuret Pep Total Protein Globulin 08/03/19 08/03/19 11:34 11:34 RBC 3.12 L Hgb 9.7 L Hct 29.7 L RDW 14.7 H Seg Neutrophils % 82 H Lymphocytes % D-Dimer ABG Methemoglobin VBG pH VBG pO2 VBG Total CO2 VBG O2 Saturation VBG Base Excess Carboxyhemoglobin Total Hemoglobin Potassium 3.1 L Chloride 93 L Carbon Dioxide Anion Gap BUN Creatinine 2.4 H Glucose 164 H Calcium 8.4 L ALT Alkaline Phosphatase 120 H Total Creatine Kinase 17 L Myoglobin 90 H Troponin T C-Reactive Protein NT-Pro-B Natriuret Pep Total Protein 5.8 L Globulin 1.9 L Meds: Medications Acetaminophen (Tylenol) 650 mg PO Q6HP PRN; Protocol PRN Reason: Per Pain Protocol/Fever > 101 Last Admin: 08/04/19 08:04 Dose: 650 mg Documented by: Hydrocodone Bitart/Acetaminophen ([place] 5/325mg) 2 tab PO Q6HP PRN; Protocol PRN Reason: Pain Last Admin: 08/04/19 17:41 Dose: 2 tab Documented by: Albuterol/Ipratropium (Duoneb) 3 ml NEB Q6HRT [facility] Last Admin: 08/04/19 19:01 Dose: 3 ml Documented by: Alprazolam (Xanax) 0.5 mg PO Q8HP PRN PRN Reason: Anxiety Amlodipine Besylate (Norvasc) 10 mg PO MOWEFR@0500 [facility] Amlodipine Besylate (Norvasc) 10 mg PO SuTuThSa@0730 [facility] Artificial Tears (Artificial Tears Ophth Drops) 1 gtt OU TID [facility] Last Admin: 08/04/19 21:17 Dose: Not Given Documented by: Aspirin (Aspirin) 81 mg PO DAILY [facility] Benzonatate (Tessalon) 200 mg PO TIDP PRN PRN Reason: Cough Last Admin: 08/04/19 17:41 Dose: 200 mg Documented by: Bisacodyl (Dulcolax) 10 mg PO DAILY PRN PRN Reason: Constipation Bisacodyl (Dulcolax) 10 mg WA DAILY PRN PRN Reason: Constipation Calcium Acetate (Phoslo) 1,334 mg PO TIDAC [facility] Last Admin: 08/04/19 19:05 Dose: 1,334 mg Documented by: Citalopram Hydrobromide (Celexa) 20 mg PO DAILY [facility] Clonidine HCl (Catapres Tts 2) 1 patch TD FR@0900 [facility] Clopidogrel Bisulfate (Plavix) 75 mg PO DAILY [facility] Diagnostic Test (Pha) (Accu-Chek) 1 each FS ACHS [facility] Last Admin: 08/04/19 21:15 Dose: 1 each Documented by: Docusate Sodium (Colace) 100 mg PO BID [facility] Last Admin: 08/04/19 21:22 Dose: 100 mg Documented by: Heparin Sodium (Porcine) (Heparin) 5,000 unit SQ Q12 [facility] Last Admin: 08/04/19 21:23 Dose: 5,000 unit Documented by: Vancomycin HCl 1,000 mg/ (Sodium Chloride) 250 mls @ 250 mls/hr IV Q24H [facility] Last Infusion: 08/04/19 10:00 Dose: Infused Documented by: Piperacillin Sod/Tazobactam (Sod 2.25 gm/ Dextrose) 50 mls @ 100 mls/hr IV Q8H [facility] Last Infusion: 08/04/19 15:15 Dose: Infused Documented by: Insulin Glargine (Lantus) 10 unit SQ HS [facility] Insulin Human Lispro (Humalog) 0 unit SQ [facility]; Protocol Last Admin: 08/04/19 21:24 Dose: Not Given Documented by: Lactobacillus Rhamnosus (Culturelle) 1 cap PO BIDCC [facility] Last Admin: 08/04/19 17:41 Dose: 1 cap Documented by: Lactulose (Cephulac) 30 gm PO DAILYP PRN PRN Reason: Constipation Lidocaine (Lidoderm) 1 patch TOPICAL DAILY@1000 [facility] Lidocaine (Lidoderm) 0 patch TOPICAL DAILY@1000 [facility] Lisinopril (Zestril) 20 mg PO [facility] Last Admin: 08/04/19 21:22 Dose: 20 mg Documented by: Magnesium Hydroxide (Milk Of Magnesia) 30 ml PO DAILYP PRN PRN Reason: Constipation Melatonin (Melatonin 3mg Tablet) 3 mg PO [facility] Last Admin: 08/04/19 21:25 Dose: 3 mg Documented by: Methylprednisolone Sodium Succinate (Solu-Medrol) 40 mg IV Q8 [facility] Last Admin: 08/04/19 14:42 Dose: 40 mg Documented by: Metoprolol Tartrate (Lopressor) 25 mg PO BID [facility] Last Admin: 08/04/19 21:22 Dose: 25 mg Documented by: Morphine Sulfate (Morphine) 1 mg IV Q2HP PRN; Protocol PRN Reason: Chest Pain Last Admin: 08/04/19 21:43 Dose: 1 mg Documented by: Mupirocin (Bactroban Oint 2%) 1 dose NARES BID [facility] Last Admin: 08/04/19 21:23 Dose: 1 dose Documented by: Nitroglycerin (Nitrostat) 0.4 mg SL Q5M PRN PRN Reason: Chest Pain Last Admin: 08/04/19 12:26 Dose: 0.4 mg Documented by: Ondansetron HCl (Zofran) 4 mg IV Q4HP PRN; Protocol PRN Reason: Nausea And Vomiting Last Admin: 08/03/19 22:10 Dose: 4 mg Documented by: Ondansetron HCl (Zofran Odt) 4 mg SL Q6HP PRN PRN Reason: Nausea And Vomiting [facility]oprazole [facility]ix) [facility] Last Admin: 08/04/19 08:10 Dose: 40 mg Documented by: Anoro Ellipta [ Umeclidinium- Vilanterol 62.5-25 Mcg] Inhaler 1 dose INH DAILY [facility] Polyethylene Glycol (Miralax) 17 gm PO DAILY [facility] Prednisone (Prednisone) [facility] Senna (Senokot) 1 tab PO BID [facility] Last Admin: 08/04/19 21:25 Dose: 1 tab Documented by: Simethicone (Mylicon) 80 mg CHEWED DAILYP PRN PRN Reason: GAS Sodium Chloride (Saline Flush) 10 ml IV Q8 [facility] Last Admin: 08/04/19 21:23 Dose: 10 ml Documented by: Tiotropium [place] (Spiriva) 18 mcg INH DAILY [facility] Trazodone HCl (Desyrel) 50 mg PO HSP PRN PRN Reason: Sleep Vancomycin HCl (Vancomycin Per Pharmacy) 1 order IV UD [facility]; Protocol Vitamin D (Vitamin D3) 2,000 unit PO DAILY [facility] - ABG Interpretation ABG results: 08/03/19 15:52 ABG Methemoglobin 0.3 L VBG pH 7.43 H VBG pCO2 42.7 VBG pO2 151 H VBG HCO3 27.8 VBG Total CO2 29.1 H VBG O2 Saturation 94.3 H VBG Base Excess 3.2 H Medical - PN: A/P - Time Spent With Patient Total time spent is greater than 50% in coordination of care (as documented) at patient's floor/unit and/or counseling patient: Greater than 35 minutes - Narrative A/P Narrative: Acute hypoxic respiratory failure Probable COPD exacerbation and bilateral community-acquired pneumonia Probable hypervolemia Increasing sputum production increasing cough and shortness of breath with hypoxia Ordered duo nebs every 6 hourly and as needed Pending-sputum Gram stain culture ordered Antibiotics changed to vancomycin and Zosyn overnight and pharmacy to dose renally Continue Solu-Medrol 60 every 8 hourly Monitor oxygenation Non-ST elevation WI probably type II Patient troponin was elevated 0.18 and the second troponin after 4 hours was 0.17 With end-stage renal disease this could be a stress response with a subendocardial coronary artery disease Patient had history of previous coronary artery disease Continue her home medications Continue metoprolol Pending echocardiogram Troponin trend remain same 0.17 Unremarkable telemetry monitoring End-stage renal disease Underwent dialysis Nephrology considering further dialysis today Hypertensive urgency-improved Restarted home medications Chronic anemia Hemoglobin 9.7 and will monitor Probably due to ESRD DVT prophylaxis-subcu heparin CODE STATUS-DNR, verified with the patient Expected length of stay-at least 2 midnights Medical - PN: Qual - VTE Deep Vein Thrombosis/Pulmonary Embolism Present on Admission: No
[2019-08-04] MEDS: INSULIN GLARGINE, HUMAN 1 UNIT/0.01 ML SQ SCH (22:52)
[2019-08-05] MEDS: IPRATROPIUM/ALBUTEROL 3 ML AMPUL.NEB NEB SCH ×4 (01:50→18:20)
[2019-08-05] MEDS: PIPERACILLIN SODIUM/TAZOBACTAM 2.25 GM in DEXTROSE 5% IN WATER 50 ML IV SCH ×3 (05:28→22:00)
[2019-08-05] MEDS: amLODIPine 10 MG TABLET PO SCH (05:28)
[2019-08-05] MEDS: 0.9 % SODIUM CHLORIDE 10 ML SYRINGE IV SCH ×7 (05:28→23:06)
[2019-08-05] MEDS: methylPREDNISolone SOD SUCC 40 MG/ML VIAL IV SCH ×2 (05:28→13:32)
[2019-08-05] MEDS: PANTOPRAZOLE 40 MG TABLET PO SCH (07:06)
[2019-08-05 07:09] LABS: Hematocrit 28.5 % (34.1-44.9); Hemoglobin 9.2 g/dL (11.2-15.7); Mean Cell Volume 96.9 fL (80.0-100.0); Mean Corpuscular HGB Conc 32.3 g/dL (31.0-36.0); Mean Platelet Volume 9.6 fL (7.4-10.4); Platelet Count 270 K/mcL (140-440); RBC 2.94 M/mcL (3.59-5.38); Red Cell Distribution Width 15.1 % (11.5-14.5); WBC 11.8 K/mcL (4.50-11.00)
[2019-08-05] MEDS: HYDROcodone/APAP 5/325MG TABLET PO PRN ×3 (07:23→20:24)
[2019-08-05] MEDS: ALPRAZolam 0.25 MG TABLET PO PRN ×2 (07:23→17:53)
[2019-08-05] MEDS: LACTOBACILLUS 1 CAPSULE PO SCH ×2 (07:25→17:27)
[2019-08-05] MEDS: predniSONE 20 MG TABLET PO SCH (07:25)
[2019-08-05] MEDS: INSULIN LISPRO 1 UNIT/0.01 ML UNIT SQ SCH ×4 (07:25→20:24)
[2019-08-05] MEDS: CALCIUM ACETATE 667 MG CAPSULE PO SCH ×3 (07:25→17:27)
[2019-08-05] MEDS: ASPIRIN 81 MG TAB.CHEW PO SCH (08:20)
[2019-08-05] MEDS: DOCUSATE SODIUM 100 MG CAPSULE PO SCH ×2 (08:20→20:16)
[2019-08-05] MEDS: CLOPIDOGREL 75 MG TABLET PO SCH (08:20)
[2019-08-05] MEDS: POLYVINYL ALCOHOL OPHTH DROPS 15ML BOTTLE OU SCH ×3 (08:20→20:25)
[2019-08-05] MEDS: HEPARIN 5,000 UNIT/ML VIAL SQ SCH ×2 (08:21→20:15)
[2019-08-05] MEDS: METOPROLOL TARTRATE 25 MG TABLET PO SCH ×2 (08:21→20:16)
[2019-08-05] MEDS: POLYETHYLENE GLYCOL 3350 17 GM PACKET PO SCH (08:21)
[2019-08-05] MEDS: CITALOPRAM 20 MG TABLET PO SCH (08:21)
[2019-08-05] MEDS: VANCOMYCIN 1,000 MG in 0.9 % SODIUM CHLORIDE 250 ML IV SCH ×3 (08:23→13:29)
[2019-08-05] MEDS: MUPIROCIN OINT 2% 22GM NARES SCH ×2 (08:24→20:14)
[2019-08-05] MEDS: SENNOSIDES 1 TABLET PO SCH ×2 (08:29→20:16)
[2019-08-05] MEDS: VITAMIN D3 1,000 UNIT TABLET PO SCH (08:29)
[2019-08-05] MEDS ORDERED: TIOTROPIUM BROMIDE 18 MCG INHALANT INH SCH (09:00)
[2019-08-05] MEDS ORDERED: PANTOPRAZOLE SODIUM 20 MG PO SCH (09:00)
[2019-08-05] MEDS ORDERED: ANORO ELLIPTA INH SCH (09:00)
[2019-08-05] MEDS ORDERED: cloNIDine TTS 2 1 PATCH PATCH TD SCH (09:00)
--- NOTE | 2019-08-05 09:09 | Nephrology Progress Note ---
Subjective Patient information: Note initiated : 08/05/19 at 9:06 am Service Date, if different from initiated Date: [] Patient: Covert,Cherelle a 63 y/o F admitted on 08/03/19 for shortness of breath, chest pain. Chief Complaint: [] Breathing is better. needing less oxygen. Objective - Vital Signs Vital signs: Vital Signs Temp Pulse Resp BP Pulse Ox 08/05/19 08:27 77 24 H 90 08/05/19 08:25 78 21 08/05/19 08:01 98.3 F 74 23 H 179/94 97 08/05/19 08:00 91 08/05/19 07:01 75 25 H 180/91 92 08/05/19 06:01 74 20 174/89 89 L 08/05/19 05:01 74 19 169/86 95 08/05/19 04:16 98.6 F 08/05/19 04:01 75 20 175/85 100 08/05/19 03:01 75 20 179/84 91 08/05/19 02:34 75 18 183/87 90 08/04/19 23:01 73 21 181/96 93 08/04/19 22:01 79 22 161/91 96 08/04/19 21:01 79 21 165/85 91 08/04/19 20:07 97.8 F 88 20 168/82 98 08/04/19 19:11 89 24 H 90 08/04/19 19:01 87 28 H 93/51 89 L 08/04/19 18:04 93 H 24 H 114/78 95 08/04/19 17:09 97 H 24 H 123/50 94 08/04/19 16:31 23 H 156/80 08/04/19 16:01 97.2 F 81 19 167/67 96 08/04/19 15:43 100 H 22 149/59 91 08/04/19 15:31 104 H 26 H 153/141 95 08/04/19 15:02 87 24 H 164/79 92 08/04/19 15:01 87 29 H 84/72 95 08/04/19 15:00 94 08/04/19 14:49 82 20 163/73 88 L 08/04/19 14:31 99 H 26 H 181/154 95 08/04/19 14:29 99 H 20 95 08/04/19 14:01 80 21 177/67 97 08/04/19 13:43 80 21 166/70 97 08/04/19 13:39 78 22 186/69 100 08/04/19 13:32 98.9 F 78 186/69 08/04/19 13:31 87 22 176/80 98 08/04/19 13:24 88 176/80 08/04/19 13:16 80 22 171/90 89 L 08/04/19 13:08 80 171/90 08/04/19 13:01 81 23 H 169/73 88 L 08/04/19 12:55 81 169/73 08/04/19 12:46 79 23 H 166/77 89 L 08/04/19 12:45 82 166/77 08/04/19 12:40 79 22 164/85 91 08/04/19 12:34 79 164/85 08/04/19 12:31 86 27 H 110/69 92 08/04/19 12:26 79 24 H 175/79 93 08/04/19 12:22 85 175/79 08/04/19 12:19 106 H 33 H 168/104 92 08/04/19 12:16 111 H 37 H 154/120 79 L 08/04/19 12:01 76 22 158/81 97 08/04/19 11:54 76 158/81 08/04/19 11:46 96 H 23 H 165/78 89 L 08/04/19 11:41 80 24 H 153/79 88 L 08/04/19 11:40 82 19 129/116 89 L 08/04/19 11:32 98.1 F 83 153/79 08/04/19 11:31 96 H 25 H 160/69 95 08/04/19 11:02 81 26 H 153/65 93 08/04/19 10:31 100 H 25 H 118/100 97 08/04/19 10:01 101 H 23 H 162/76 93 08/04/19 09:31 103 H 27 H 157/98 96 08/04/19 09:11 84 22 89 L Intake and Output 08/04/19 08/05/19 08/05/19 21:59 05:59 13:59 Intake Total 570 50 50 Balance 570 50 50 Intake: IV 50 50 50 Sodium Chloride 0.9% 250 ml @ 0 20 mls/hr IV .[id number] [facility] Rx#: [id number] Zosyn 2.25 gm In Dextrose 5% in 50 50 50 Water 50 ml @ 100 mls/hr IV Q8H [facility] Rx#:[id number] Oral 520 Other: Stool Size Smear Stool Color Brown Stool Consistency Soft Weight 142 lb 14.4 oz 142 lb 14.4 oz Intake & Output: Intake & Output 08/04/19 08/05/19 08/05/19 21:59 05:59 13:59 Intake Total 570 50 50 Balance 570 50 50 Weight 142 lb 14.4 oz 142 lb 14.4 oz Intake: IV 50 50 50 Sodium Chloride 0.9% 250 ml @ 0 20 mls/hr IV .[id number] [facility] Rx#: [id number] Zosyn 2.25 gm In Dextrose 5% in 50 50 50 Water 50 ml @ 100 mls/hr IV Q8H [facility] Rx#:[id number] Oral 520 Other: Stool Size Smear Stool Color Brown Stool Consistency Soft - General Appearance General appearance: cachectic EENT: ATNC Neck: JVD Cardiology: mid-systolic murmur Gastrointestinal: normoactive bowel sounds Integumentary: no rash Neurologic: no focal deficit - Lab 08/05/19 05:10 08/04/19 19:00 Most recent lab results Calcium 8.6 mg/dl (8.6-10.4) 08/04/19 19:00 Magnesium 1.9 mg/dL (1.6-2.5) 08/04/19 04:40 Assessment and Plan (1) ESRD (end stage renal disease) on dialysis Status: Chronic Priority: Medium Comment: She had dialysis yesterday she is better. Will have her regular dialysis treatment today. BP, slightly high, related to volume excess. Hopefully get better with dialysis.
[2019-08-05] MEDS: LIDOCAINE PATCH TOPICAL SCH ×2 (09:37→22:00)
[2019-08-05] MEDS ORDERED: LIDOCAINE PATCH TOPICAL SCH (10:00)
[2019-08-05 10:16] LABS: Hypochromasia 1+ (NONE SEEN); Lymphocytes % 5 % (15-49); Monocytes % (Manual) 2 % (1-12); Platelet Estimate NORMAL (NORMAL); Polychromasia 1+ (NONE SEEN); RBC Morphology ABNORM (NORMAL); Segmented Neutrophils % 93 % (38-78)
[2019-08-05] MEDS ORDERED: hydrALAZINE 20 MG/ML VIAL IV PRN (11:52)
--- NOTE | 2019-08-05 13:40 | Internal Med Progress Note ---
Medical - PN: Subj Patient information: Note initiated : 08/05/19 at 1:38 pm Service Date, if different from initiated Date: [] Patient: Covert,Cherelle gonzalez 63 y/o F admitted on 08/03/19 for shortness of breath, chest pain. Chief Complaint: [] Interval history: 63-year-old female with a history of end-stage renal disease on dialysis, uncontrolled hypertension, congestive heart failure, CAD status post stent x3 placement was brought to the ER due to chest pain. Patient was at the dialysis center and during dialysis patient started having chest pain and they held the dialysis and transferred to the ER. Patient chest pain continued even after giving sublingual nitro her blood pressure was in 1 70-1 80 patient had similar chest pain in the past during dialysis. Patient had a previous cardiac work-up done to 3 years ago underwent stent placement x3. Since then patient was on dual antiplatelet patient denied any anticoagulation. She was also having active shortness of breath and hypoxic oxygenation 85 to 86% she received Solu- Medrol 1 dose and DuoNeb treatment in the ER. Her initial troponin was 0.18 and repeat troponin was 0.17 and she always had slightly elevated troponin 0.3 in the past. She was also having active wheezing during my encounter with increasing cough she is an active smoker. Chest x-ray showed cardiomegaly and a underwent chest CTA due to elevated d-dimer which came back positive for pneumonia bilaterally. She was started on ceftriaxone and azithromycin in the ER. 08/04 Overnight patient went into severe respiratory failure requiring BiPAP and high flow oxygen. Patient was also very anxious discussed with the patient and daughter multiple times and patient reconfirms she is a DNR does not want any intubation even if she is dying. Antibiotic broadened to vancomycin and Zosyn. Using morphine for anxiety and breathing difficulty. Updated nephrology and got the dialysis discussed with the nephrology this morning and plan is to continue dialysis. Respiratory failure slightly improved compared to yesterday. 08/05/19 Her MRSA screen is positive She is feeling better Continuing vancomycin and Zosyn Solu-Medrol will change to prednisone Her anxiety is better with the Xanax She has intermittently elevated blood pressure noted hydralazine She is also getting dialysis Pertinent ROS: Respiratory-continued having shortness of breath but improved significantly [employer]-no headache no seizure no focal deficit Cardiac-no chest pain today no palpitations Abdomen-distended no diarrhea no constipation Urinary-no dysuria no pain - Constitutional Vitals: Vital Signs Temp Pulse Resp BP Pulse Ox 98.1 F 76 16 179/95 92 08/05/19 13:15 08/05/19 13:28 08/05/19 13:28 08/05/19 13:15 08/05/19 13:28 Period Temp Pulse Resp BP Sys/Talley Pulse Ox Last 24 Hr 97.2 F-98.9 F 69-104 15-29 84-186/50-154 88-100 Intake and Output 08/04/19 08/05/19 08/05/19 21:59 05:59 13:59 Intake Total 570 50 350 Output Total 2800 Balance 570 50 -2450 Weight 142 lb 14.4 oz 142 lb 14.4 oz Intake & Output: Intake & Output 08/04/19 08/05/19 08/05/19 21:59 05:59 13:59 Intake Total 570 50 350 Output Total 2800 Balance 570 50 -2450 Weight 142 lb 14.4 oz 142 lb 14.4 oz Intake: IV 50 50 50 Sodium Chloride 0.9% 250 ml @ 0 20 mls/hr IV .[id number] [facility] Rx#: [id number] Zosyn 2.25 gm In Dextrose 5% in 50 50 50 Water 50 ml @ 100 mls/hr IV Q8H [facility] Rx#:[id number] Oral 520 300 Output: Hemodialysis UF 2800 Other: Meal Breakfast Percent of Meal Consumed 100% Stool Size Smear Stool Color Brown Stool Consistency Soft - Head Head exam: Present: atraumatic, normal inspection - Eye Eye exam: Present: conjunctival injection. Absent: nystagmus, periorbital swelling, periorbital tenderness - ENT ENT exam: Present: mucous membranes moist, normal oropharynx. Absent: normal external ear exam - Neck Neck exam: Present: normal inspection. Absent: lymphadenopathy, meningismus - Respiratory Respiratory exam: Present: accessory muscle use, chest wall tenderness, decreased breath sounds, prolonged expiratory phase, respiratory distress, rhonchi, wheezes - Cardiovascular Cardiovascular exam: Present: normal rate and rhythm. Absent: JVD, RRR, +S3, +S 4 - GI/Abdominal GI/Abdominal exam: Present: normal bowel sounds, soft, distended. Absent: bruit - Extremities Exam Extremities exam: Present: pedal edema. Absent: calf tenderness - Neurological Exam Neurological exam: Present: alert, oriented X3, reflexes normal. Absent: motor sensory deficit Medical - PN: Obj Da - Labs CBC & Chem 7: 08/05/19 05:10 08/04/19 19:00 Labs: Abnormal Lab Results 08/05/19 08/04/19 08/04/19 05:10 19:00 07:25 WBC 11.8 H RBC 2.94 L Hgb 9.2 L Hct 28.5 L RDW 15.1 H Seg Neutrophils % 93 H Lymphocytes % 5 L RBC Morphology Abnorm A Polychromasia 1+ A Hypochromasia 1+ A D-Dimer ABG Methemoglobin VBG pH VBG pO2 VBG Total CO2 VBG O2 Saturation VBG Base Excess Carboxyhemoglobin Total Hemoglobin Potassium Chloride Carbon Dioxide 21 L Anion Gap 19.0 H BUN 47 H Creatinine 4.1 H Glucose Calcium ALT 41 H Alkaline Phosphatase 129 H Total Creatine Kinase Myoglobin Troponin T 0.18 H* C-Reactive Protein NT-Pro-B Natriuret Pep Total Protein Globulin 08/04/19 08/04/19 08/04/19 07:25 04:40 01:00 WBC RBC 2.82 L Hgb 8.7 L Hct 27.5 L RDW 14.9 H Seg Neutrophils % 98 H Lymphocytes % 1 L RBC Morphology Polychromasia Hypochromasia D-Dimer ABG Methemoglobin VBG pH VBG pO2 VBG Total CO2 VBG O2 Saturation VBG Base Excess Carboxyhemoglobin Total Hemoglobin Potassium Chloride Carbon Dioxide Anion Gap BUN Creatinine Glucose Calcium ALT Alkaline Phosphatase Total Creatine Kinase Myoglobin Troponin T 0.20 H* C-Reactive Protein 4.4 H NT-Pro-B Natriuret Pep Total Protein Globulin 08/03/19 08/03/19 08/03/19 19:06 19:06 15:52 WBC RBC Hgb Hct RDW Seg Neutrophils % Lymphocytes % RBC Morphology Polychromasia Hypochromasia D-Dimer ABG Methemoglobin VBG pH VBG pO2 VBG Total CO2 VBG O2 Saturation VBG Base Excess Carboxyhemoglobin Total Hemoglobin Potassium Chloride Carbon Dioxide Anion Gap BUN 24 H Creatinine 2.9 H Glucose 190 H Calcium 8.2 L ALT Alkaline Phosphatase Total Creatine Kinase Myoglobin Troponin T 0.17 H* C-Reactive Protein NT-Pro-B Natriuret Pep 12123.0 H Total Protein 5.6 L Globulin 1.9 L 08/03/19 08/03/19 08/03/19 15:52 15:52 11:34 WBC RBC Hgb Hct RDW Seg Neutrophils % Lymphocytes % RBC Morphology Polychromasia Hypochromasia D-Dimer 7.74 H ABG Methemoglobin 0.3 L VBG pH 7.43 H VBG pO2 151 H VBG Total CO2 29.1 H VBG O2 Saturation 94.3 H VBG Base Excess 3.2 H Carboxyhemoglobin 4.4 H Total Hemoglobin 8.9 L Potassium Chloride Carbon Dioxide Anion Gap BUN Creatinine Glucose Calcium ALT Alkaline Phosphatase Total Creatine Kinase Myoglobin Troponin T 0.18 H* C-Reactive Protein NT-Pro-B Natriuret Pep Total Protein Globulin 08/03/19 08/03/19 08/03/19 11:34 11:34 11:34 WBC RBC 3.12 L Hgb 9.7 L Hct 29.7 L RDW 14.7 H Seg Neutrophils % 82 H Lymphocytes % RBC Morphology Polychromasia Hypochromasia D-Dimer ABG Methemoglobin VBG pH VBG pO2 VBG Total CO2 VBG O2 Saturation VBG Base Excess Carboxyhemoglobin Total Hemoglobin Potassium 3.1 L Chloride 93 L Carbon Dioxide Anion Gap BUN Creatinine 2.4 H Glucose 164 H Calcium 8.4 L ALT Alkaline Phosphatase 120 H Total Creatine Kinase 17 L Myoglobin 90 H Troponin T 0.17 H* C-Reactive Protein NT-Pro-B Natriuret Pep Total Protein 5.8 L Globulin 1.9 L Meds: Medications Acetaminophen (Tylenol) 650 mg PO Q6HP PRN; Protocol PRN Reason: Per Pain Protocol/Fever > 101 Last Admin: 08/04/19 08:04 Dose: 650 mg Documented by: Hydrocodone Bitart/Acetaminophen (Twilight 5/325mg) 2 tab PO Q6HP PRN; Protocol PRN Reason: Pain Last Admin: 08/05/19 12:24 Dose: 2 tab Documented by: Albuterol/Ipratropium (Duoneb) 3 ml NEB Q6HRT [facility] Last Admin: 08/05/19 13:14 Dose: 3 ml Documented by: Alprazolam (Xanax) 0.5 mg PO Q8HP PRN PRN Reason: Anxiety Last Admin: 08/05/19 07:23 Dose: 0.5 mg Documented by: Amlodipine Besylate (Norvasc) 10 mg PO MOWEFR@0500 [facility] [place] Last Admin: 08/05/19 05:28 Dose: 10 mg Documented by: Amlodipine Besylate (Norvasc) 10 mg PO SuTuThSa@0730 [facility] [place] Artificial Tears (Artificial Tears Ophth Drops) 1 gtt OU TID [facility] [place] Last Admin: 08/05/19 08:20 Dose: Not Given Documented by: Aspirin (Aspirin) 81 mg PO DAILY [facility] [place] Last Admin: 08/05/19 08:20 Dose: 81 mg Documented by: Benzonatate (Tessalon) 200 mg PO TIDP PRN PRN Reason: Cough Last Admin: 08/04/19 17:41 Dose: 200 mg Documented by: Bisacodyl (Dulcolax) 10 mg PO DAILY PRN PRN Reason: Constipation Bisacodyl (Dulcolax) 10 mg FL DAILY PRN PRN Reason: Constipation Calcium Acetate (Phoslo) 1,334 mg PO TIDAC [facility] [place] Last Admin: 08/05/19 13:27 Dose: 1,334 mg Documented by: Citalopram Hydrobromide (Celexa) 20 mg PO DAILY [facility] [place] Last Admin: 08/05/19 08:21 Dose: 20 mg Documented by: Clonidine HCl (Catapres Tts 2) 1 patch TD FR@0900 [facility] [place] Last Admin: 08/05/19 08:23 Dose: 1 patch Documented by: Clopidogrel Bisulfate (Plavix) 75 mg PO DAILY [facility] [place] Last Admin: 08/05/19 08:20 Dose: 75 mg Documented by: Diagnostic Test (Pha) (Accu-Chek) 1 each FS ACHS [facility] [place] Last Admin: 08/05/19 10:57 Dose: 1 each Documented by: Docusate Sodium (Colace) 100 mg PO BID [facility] [place] Last Admin: 08/05/19 08:20 Dose: 100 mg Documented by: Heparin Sodium (Porcine) (Heparin) 5,000 unit SQ Q12 [facility] [place] Last Admin: 08/05/19 08:21 Dose: 5,000 unit Documented by: Hydralazine HCl (Apresoline) 10 mg IV Q4-6HP PRN PRN Reason: Hypertension Piperacillin Sod/Tazobactam (Sod 2.25 gm/ Dextrose) 50 mls @ 100 mls/hr IV Q8H [facility] [place] Last Infusion: 08/05/19 06:31 Dose: Infused Documented by: Vancomycin HCl 1,000 mg/ (Sodium Chloride) 250 mls @ 250 mls/hr IV ONCE ONE Stop: 08/05/19 14:59 Insulin Glargine (Lantus) 10 unit SQ [facility] Last Admin: 08/04/19 22:52 Dose: 10 units Documented by: Insulin Human Lispro (Humalog) 0 unit SQ [facility]; Protocol Last Admin: 08/05/19 13:30 Dose: 2 unit Documented by: [facility] Last Admin: 08/05/19 07:25 Dose: 1 cap Documented by: Lactulose (Cephulac) 30 gm PO DAILYP PRN PRN Reason: Constipation Lidocaine (Lidoderm) 1 patch TOPICAL DAILY@1000 [facility] [place] Last Admin: 08/05/19 09:37 Dose: 1 patch Documented by: Lidocaine (Lidoderm) 0 patch TOPICAL DAILY@1000 [facility] [place] Lisinopril (Zestril) 20 mg PO [facility] Last Admin: 08/04/19 21:22 Dose: 20 mg Documented by: Magnesium Hydroxide (Milk Of Magnesia) 30 ml PO DAILYP PRN PRN Reason: Constipation Melatonin (Melatonin 3mg Tablet) 3 mg PO [facility] Last Admin: 08/04/19 21:25 Dose: 3 mg Documented by: Methylprednisolone Sodium Succinate (Solu-Medrol) 40 mg IV Q8 [facility] [place] Last Admin: 08/05/19 13:32 Dose: 40 mg Documented by: Metoprolol Tartrate (Lopressor) 25 mg PO BID [facility] [place] Last Admin: 08/05/19 08:21 Dose: 25 mg Documented by: Mupirocin (Bactroban Oint 2%) 1 dose NARES BID [facility] [place] Last Admin: 08/05/19 08:24 Dose: 1 dose Documented by: Nitroglycerin (Nitrostat) 0.4 mg SL Q5M PRN PRN Reason: Chest Pain Last Admin: 08/04/19 12:26 Dose: 0.4 mg Documented by: Ondansetron HCl (Zofran) 4 mg IV Q4HP PRN; Protocol PRN Reason: Nausea And Vomiting Last Admin: 08/03/19 22:10 Dose: 4 mg Documented by: Ondansetron HCl (Zofran Odt) 4 mg SL Q6HP PRN PRN Reason: Nausea And Vomiting Last Admin: 08/05/19 09:53 Dose: 4 mg Documented by: Pantoprazole Sodium (Protonix) 40 mg PO QAMAC [facility] [place] Last Admin: 08/05/19 07:06 Dose: 40 mg Documented by: Polyethylene Glycol (Miralax) 17 gm PO DAILY [facility] [place] Last Admin: 08/05/19 08:21 Dose: 17 gm Documented by: Prednisone (Prednisone) 20 mg PO [facility] Last Admin: 08/05/19 07:25 Dose: 20 mg Documented by: Senna (Senokot) 1 tab PO BID [facility] [place] Last Admin: 08/05/19 08:29 Dose: 1 tab Documented by: Simethicone (Mylicon) 80 mg CHEWED DAILYP PRN PRN Reason: GAS Sodium Chloride (Saline Flush) 10 ml IV Q8 [facility] [place] Last Admin: 08/05/19 13:30 Dose: 10 ml Documented by: Trazodone HCl (Desyrel) 50 mg PO HSP PRN PRN Reason: Sleep Vancomycin HCl (Vancomycin Per Pharmacy) 1 order IV UD [facility] [place]; Protocol Vitamin D (Vitamin D3) 2,000 unit PO DAILY [facility] [place] Last Admin: 08/05/19 08:29 Dose: 2,000 unit Documented by: - ABG Interpretation ABG results: 08/03/19 15:52 ABG Methemoglobin 0.3 L VBG pH 7.43 H VBG pCO2 42.7 VBG pO2 151 H VBG HCO3 27.8 VBG Total CO2 29.1 H VBG O2 Saturation 94.3 H VBG Base Excess 3.2 H Medical - PN: A/P - Time Spent With Patient Total time spent is greater than 50% in coordination of care (as documented) at patient's floor/unit and/or counseling patient: - Narrative A/P Narrative: Acute hypoxic respiratory failure Probable COPD exacerbation and bilateral community-acquired pneumonia Probable hypervolemia Increasing sputum production increasing cough and shortness of breath with hypoxia Ordered duo nebs every 6 hourly and as needed Pending-sputum Gram stain culture ordered Continue to vancomycin and Zosyn overnight and pharmacy to dose renally Continue Solu-Medrol 60 every 8 hourly Monitor oxygenation Her MRSA screen came back positive Non-ST elevation [place] probably type II Patient troponin was elevated 0.18 and the second troponin after 4 hours was 0.17 With end-stage renal disease this could be a stress response with a subendocardial coronary artery disease Patient had history of previous coronary artery disease Continue her home medications Continue metoprolol Echocardiogram showing ejection fraction 60-65, no wall motion abnormalities, elevated pulmonary pressure Troponin trend remain same 0.17 Unremarkable telemetry monitoring Pulmonary hypertension probably secondary to COPD Need outpatient follow-up Strongly encourage her to keep smoking End-stage renal disease Underwent dialysis Nephrology considering further dialysis today Hypertensive urgency--intermittent Restarted home medications Ordered hydralazine 10 mg every 6 hours as needed Chronic anemia Hemoglobin 9.7 and will monitor Probably due to ESRD DVT prophylaxis-subcu heparin CODE STATUS-DNR, verified with the patient Medical - PN: Qual - VTE Deep Vein Thrombosis/Pulmonary Embolism Present on Admission: No
[2019-08-05] MEDS ORDERED: VANCOMYCIN 1,000 MG in 0.9 % SODIUM CHLORIDE 250 ML IV ONE (14:00)
[2019-08-05] MEDS: hydrALAZINE 20 MG/ML VIAL IV PRN ×2 (18:01→23:03)
[2019-08-05] MEDS: ACETAMINOPHEN 325 MG TABLET PO PRN (19:33)
[2019-08-05] MEDS: MELATONIN 3 MG TABLET PO SCH (20:16)
[2019-08-05] MEDS: LISINOPRIL 20 MG TABLET PO SCH (20:16)
[2019-08-05] MEDS: INSULIN GLARGINE, HUMAN 1 UNIT/0.01 ML SQ SCH (20:24)
[2019-08-05 20:57] LABS: ALT/SGPT 35 U/l (0-40); AST/SGOT 16 U/l (0-37); Albumin 4.3 gm/dL (3.2-5.2); Alkaline Phosphatase 124 U/L (39-117); Bilirubin,Total 0.4 mg/dL (0.0-1.0); Calcium 9.1 mg/dl (8.6-10.4); Carbon Dioxide 25 mmol/L (22-30); Globulin 2.1 gm/dL (2.2-3.7); Glucose 205 mg/dL (70-105)
[2019-08-05 20:58] LABS: Blood Urea Nitrogen 23 mg/dl (8-23); Chloride 95 mmol/L (96-108); Glomerular Filtration Rate 21
[2019-08-06] MEDS: IPRATROPIUM/ALBUTEROL 3 ML AMPUL.NEB NEB SCH ×5 (01:33→19:26)
[2019-08-06] MEDS: hydrALAZINE 20 MG/ML VIAL IV PRN ×3 (03:30→22:03)
[2019-08-06] MEDS: 0.9 % SODIUM CHLORIDE 10 ML SYRINGE IV SCH ×4 (03:31→22:04)
[2019-08-06] MEDS: PIPERACILLIN SODIUM/TAZOBACTAM 2.25 GM in DEXTROSE 5% IN WATER 50 ML IV SCH ×3 (05:50→21:48)
[2019-08-06] MEDS: PANTOPRAZOLE 40 MG TABLET PO SCH (07:09)
[2019-08-06] MEDS: CALCIUM ACETATE 667 MG CAPSULE PO SCH ×3 (07:09→17:17)
[2019-08-06] MEDS: amLODIPine 10 MG TABLET PO SCH (07:09)
[2019-08-06] MEDS: INSULIN LISPRO 1 UNIT/0.01 ML UNIT SQ SCH ×4 (07:33→22:03)
[2019-08-06] MEDS: SENNOSIDES 1 TABLET PO SCH ×2 (08:31→20:48)
[2019-08-06] MEDS: VITAMIN D3 1,000 UNIT TABLET PO SCH (08:31)
[2019-08-06] MEDS: LACTOBACILLUS 1 CAPSULE PO SCH ×2 (08:31→17:18)
[2019-08-06] MEDS: predniSONE 20 MG TABLET PO SCH (08:31)
[2019-08-06] MEDS: DOCUSATE SODIUM 100 MG CAPSULE PO SCH ×2 (08:31→20:48)
[2019-08-06] MEDS: CLOPIDOGREL 75 MG TABLET PO SCH (08:31)
[2019-08-06] MEDS: ASPIRIN 81 MG TAB.CHEW PO SCH (08:32)
[2019-08-06] MEDS: METOPROLOL TARTRATE 25 MG TABLET PO SCH ×2 (08:32→20:48)
[2019-08-06] MEDS: HEPARIN 5,000 UNIT/ML VIAL SQ SCH ×2 (08:32→20:48)
[2019-08-06] MEDS: MUPIROCIN OINT 2% 22GM NARES SCH ×2 (08:32→20:48)
[2019-08-06] MEDS: POLYETHYLENE GLYCOL 3350 17 GM PACKET PO SCH (08:32)
[2019-08-06] MEDS: CITALOPRAM 20 MG TABLET PO SCH (08:32)
--- NOTE | 2019-08-06 09:14 | Nephrology Progress Note ---
Subjective Patient information: Note initiated : 08/06/19 at 9:12 am Service Date, if different from initiated Date: [] Patient: Covert,Cherelle a 63 y/o F admitted on 08/03/19 for shortness of breath, chest pain. Chief Complaint: [] Still does not feel well. Breathing is better. Objective - Vital Signs Vital signs: Vital Signs Temp Pulse Resp BP Pulse Ox 08/06/19 08:48 74 26 H 174/83 90 08/06/19 07:35 93 08/06/19 07:11 80 17 08/06/19 07:09 79 17 94 08/06/19 07:01 98.3 F 80 19 175/89 97 08/06/19 06:01 76 17 179/89 94 08/06/19 05:33 76 15 94 08/06/19 05:02 80 19 174/86 100 08/06/19 05:00 98.0 F 08/06/19 04:02 72 19 150/72 92 08/06/19 03:39 19 97 08/06/19 03:01 71 19 187/87 100 08/06/19 02:01 72 25 H 172/91 97 08/06/19 01:43 73 19 168/88 93 08/06/19 01:01 73 18 179/81 95 08/06/19 00:01 73 18 168/91 92 08/06/19 00:00 99.0 F 08/05/19 23:45 75 20 184/101 90 08/05/19 23:01 77 20 188/85 93 08/05/19 22:01 75 21 182/90 97 08/05/19 21:31 82 20 177/90 94 08/05/19 21:01 76 22 178/83 93 08/05/19 20:35 98.6 F 08/05/19 20:01 20 180/89 08/05/19 19:38 101 H 24 H 92 08/05/19 19:03 26 H 90 08/05/19 19:01 86 23 H 178/87 93 08/05/19 18:36 82 21 08/05/19 18:27 83 27 H 170/87 90 08/05/19 18:06 86 26 H 196/104 89 L 08/05/19 18:04 81 22 192/94 90 08/05/19 18:02 81 23 H 206/111 90 08/05/19 18:01 82 23 H 196/104 93 08/05/19 17:01 79 20 108/70 94 08/05/19 16:42 80 22 127/88 94 08/05/19 16:03 98 F 23 H 165/95 08/05/19 15:01 81 21 168/91 93 08/05/19 15:00 94 08/05/19 14:16 85 22 186/85 96 08/05/19 14:01 86 16 186/102 88 L 08/05/19 13:28 72 16 92 08/05/19 13:15 98.1 F 70 179/95 08/05/19 13:12 71 179/95 08/05/19 13:02 74 21 177/100 92 08/05/19 12:55 74 177/100 08/05/19 12:47 74 17 174/103 92 08/05/19 12:41 75 174/103 08/05/19 12:25 80 20 152/101 98 08/05/19 12:18 85 152/101 08/05/19 12:05 71 18 173/93 88 L 08/05/19 11:54 78 173/93 08/05/19 11:47 72 22 170/100 91 08/05/19 11:45 75 170/100 08/05/19 11:32 72 18 181/85 90 08/05/19 11:27 72 181/85 08/05/19 11:16 70 17 178/91 89 L 08/05/19 11:15 70 178/91 08/05/19 11:01 69 16 171/93 92 08/05/19 10:54 71 171/93 08/05/19 10:46 73 21 179/90 91 08/05/19 10:40 73 179/90 08/05/19 10:32 69 18 160/86 94 08/05/19 10:25 71 160/86 08/05/19 10:16 70 18 146/93 92 08/05/19 10:11 70 146/93 08/05/19 10:02 94 H 19 160/81 94 08/05/19 09:49 70 162/84 08/05/19 09:46 71 19 162/84 96 08/05/19 09:31 72 20 140/83 99 08/05/19 09:24 98.9 F 71 155/85 Intake and Output 08/05/19 08/06/19 08/06/19 21:59 05:59 13:59 Intake Total 1160 410 50 Balance 1160 410 50 Intake: IV 550 50 50 Zosyn 2.25 gm In Dextrose 5% in 50 50 50 Water 50 ml @ 100 mls/hr IV Q8H [facility] Rx#:[id number] Vancomycin 1,000 mg In Sodium 500 Chloride 0.9% 250 ml @ 250 mls/ hr IV Q24H [facility] Rx#:[id number] Oral 610 360 Other: Meal Lunch Percent of Meal Consumed 75% Feeding Ability Independent Stool Size Large Stool Color Brown Stool Consistency Soft Formed # Bowel Movements 1 Weight 134 lb 11.2 oz Intake & Output: Intake & Output 08/05/19 08/06/19 08/06/19 21:59 05:59 13:59 Intake Total 1160 410 50 Balance 1160 410 50 Weight 134 lb 11.2 oz Intake: IV 550 50 50 Zosyn 2.25 gm In Dextrose 5% in 50 50 50 Water 50 ml @ 100 mls/hr IV Q8H [facility] Rx#:[id number] Vancomycin 1,000 mg In Sodium 500 Chloride 0.9% 250 ml @ 250 mls/ hr IV Q24H [facility] Rx#:[id number] Oral 610 360 Other: Meal Lunch Percent of Meal Consumed 75% Feeding Ability Independent Stool Size Large Stool Color Brown Stool Consistency Soft Formed # Bowel Movements 1 - General Appearance General appearance: cachectic EENT: ATNC Neck: JVD Respiratory: no kyphosis Cardiology: mid-systolic murmur Gastrointestinal: normoactive bowel sounds Integumentary: no rash Neurologic: no focal deficit - Lab 08/05/19 05:10 08/05/19 18:55 Most recent lab results Calcium 9.1 mg/dl (8.6-10.4) 08/05/19 18:55 Magnesium 1.9 mg/dL (1.6-2.5) 08/04/19 04:40 Assessment and Plan (1) ESRD (end stage renal disease) on dialysis Status: Chronic Priority: Medium Comment: She had dialysis yesterday she is better. BP, slightly high, will increase lisinopril and clonidine.
[2019-08-06] MEDS ORDERED: cloNIDine TTS 3 1 PATCH PATCH TD SCH (09:15)
[2019-08-06] MEDS: LISINOPRIL 20 MG TABLET PO SCH ×2 (09:25→20:49)
[2019-08-06] MEDS: HYDROcodone/APAP 5/325MG TABLET PO PRN ×2 (09:29→17:45)
[2019-08-06] MEDS: ALPRAZolam 0.25 MG TABLET PO PRN (09:29)
[2019-08-06] MEDS: LIDOCAINE PATCH TOPICAL SCH ×2 (09:47→22:04)
[2019-08-06 11:28] LABS: Hematocrit 31.9 % (34.1-44.9); Hemoglobin 9.8 g/dL (11.2-15.7); Mean Corpuscular HGB Conc 30.7 g/dL (31.0-36.0); Mean Platelet Volume 9.6 fL (7.4-10.4); Platelet Count 332 K/mcL (140-440); RBC 3.19 M/mcL (3.59-5.38); Red Cell Distribution Width 15.6 % (11.5-14.5); WBC 11.6 K/mcL (4.50-11.00)
[2019-08-06 11:59] LABS: Anisocytosis FEW (NONE SEEN); Band Neutrophils % 1 % (0-10); Lymphocytes % 18 % (15-49); Monocytes % (Manual) 9 % (1-12); Platelet Estimate NORMAL (NORMAL); Poikilocytosis FEW (NONE SEEN); RBC Fragments FEW (NONE SEEN); RBC Morphology ABNORMAL (NORMAL); Segmented Neutrophils % 72 % (38-78)
--- NOTE | 2019-08-06 12:47 | Internal Med Progress Note ---
Medical - PN: Subj Patient information: Note initiated : 08/06/19 at 12:45 pm Service Date, if different from initiated Date: [] Patient: Covert,Cherelle gonzalez 63 y/o F admitted on 08/03/19 for shortness of breath, chest pain. Chief Complaint: [] Interval history: 63-year-old female with a history of end-stage renal disease on dialysis, uncontrolled hypertension, congestive heart failure, CAD status post stent x3 placement was brought to the ER due to chest pain. Patient was at the dialysis center and during dialysis patient started having chest pain and they held the dialysis and transferred to the ER. Patient chest pain continued even after giving sublingual nitro her blood pressure was in 1 70-1 80 patient had similar chest pain in the past during dialysis. Patient had a previous cardiac work-up done to 3 years ago underwent stent placement x3. Since then patient was on dual antiplatelet patient denied any anticoagulation. She was also having active shortness of breath and hypoxic oxygenation 85 to 86% she received Solu- Medrol 1 dose and DuoNeb treatment in the ER. Her initial troponin was 0.18 and repeat troponin was 0.17 and she always had slightly elevated troponin 0.3 in the past. She was also having active wheezing during my encounter with increasing cough she is an active smoker. Chest x-ray showed cardiomegaly and a underwent chest CTA due to elevated d-dimer which came back positive for pneumonia bilaterally. She was started on ceftriaxone and azithromycin in the ER. 08/04 Overnight patient went into severe respiratory failure requiring BiPAP and high flow oxygen. Patient was also very anxious discussed with the patient and daughter multiple times and patient reconfirms she is a DNR does not want any intubation even if she is dying. Antibiotic broadened to vancomycin and Zosyn. Using morphine for anxiety and breathing difficulty. Updated nephrology and go t the dialysis discussed with the nephrology this morning and plan is to continue dialysis. Respiratory failure slightly improved compared to yesterday. 08/05/19 Her MRSA screen is positive She is feeling better Continuing vancomycin and Zosyn Solu-Medrol will change to prednisone Her anxiety is better with the Xanax She has intermittently elevated blood pressure noted hydralazine She is also getting dialysis 08/06 Patient continues to feel better Because of her extensive pneumonia we will continue IV antibiotics for another day Blood pressure was elevated and clonidine dose was increased and lisinopril increased to 20 twice daily Her oxygenation is 2 to 4 L of nasal cannula which is close to her baseline Pertinent ROS: Respiratory-continued having shortness of breath but improved Cardiovascular-chest pain improved Abdomen-distended no diarrhea no constipation Neuro-no focal deficit no headache - Constitutional Vitals: Vital Signs Temp Pulse Resp BP Pulse Ox 98.3 F 76 16 158/81 90 08/06/19 07:01 08/06/19 11:01 08/06/19 11:01 08/06/19 11:01 08/06/19 11:01 Period Temp Pulse Resp BP Sys/Talley Pulse Ox Last 24 Hr 98 F-99.0 F 70-101 15-27 108-206/70-111 88-100 Intake and Output 08/05/19 08/06/19 08/06/19 21:59 05:59 13:59 Intake Total 1160 410 50 Balance 1160 410 50 Weight 134 lb 11.2 oz Intake & Output: Intake & Output 08/05/19 08/06/19 08/06/19 21:59 05:59 13:59 Intake Total 1160 410 50 Balance 1160 410 50 Weight 134 lb 11.2 oz Intake: IV 550 50 50 Zosyn 2.25 gm In Dextrose 5% in 50 50 50 Water 50 ml @ 100 mls/hr IV Q8H [facility] Rx#:[id number] Vancomycin 1,000 mg In Sodium 500 Chloride 0.9% 250 ml @ 250 mls/ hr IV Q24H [facility] Rx#:[id number] Oral 610 360 Other: Meal Lunch Breakfast Percent of Meal Consumed 75% 25% Feeding Ability Independent Stool Size Large Stool Color Brown Stool Consistency Soft Formed # Bowel Movements 1 - Head Head exam: Present: atraumatic, normal inspection - Eye Eye exam: Present: conjunctival injection. Absent: nystagmus, periorbital swelling, periorbital tenderness - ENT ENT exam: Present: normal exam, normal external ear exam, normal oropharynx - Respiratory Respiratory exam: Present: accessory muscle use, decreased breath sounds, rhonchi, wheezes - Cardiovascular Cardiovascular exam: Present: irregular rhythm. Absent: clicks, diastolic murmur, JVD - GI/Abdominal GI/Abdominal exam: Present: normal bowel sounds, soft, distended - Neurological Exam Neurological exam: Present: alert, oriented X3. Absent: motor sensory deficit Medical - PN: Obj Da - Labs CBC & Chem 7: 08/06/19 05:05 08/05/19 18:55 Labs: Abnormal Lab Results 08/06/19 08/05/19 08/05/19 05:05 18:55 05:10 WBC 11.6 H 11.8 H RBC 3.19 L 2.94 L Hgb 9.8 L 9.2 L Hct 31.9 L 28.5 L MCHC 30.7 L RDW 15.6 H 15.1 H Seg Neutrophils % 93 H Lymphocytes % 5 L RBC Morphology Abnorm A Polychromasia 1+ A Hypochromasia 1+ A Poikilocytosis Few A Anisocytosis Few A RBC Fragments Few A D-Dimer ABG Methemoglobin VBG pH VBG pO2 VBG Total CO2 VBG O2 Saturation VBG Base Excess Carboxyhemoglobin Total Hemoglobin Potassium Chloride 95 L Carbon Dioxide Anion Gap 17.0 H BUN Creatinine 2.4 H Glucose 205 H Calcium ALT Alkaline Phosphatase 124 H Total Creatine Kinase Myoglobin Troponin T C-Reactive Protein NT-Pro-B Natriuret Pep Total Protein Globulin 2.1 L 08/04/19 08/04/19 08/04/19 19:00 07:25 07:25 WBC RBC 2.82 L Hgb 8.7 L Hct 27.5 L MCHC RDW 14.9 H Seg Neutrophils % 98 H Lymphocytes % 1 L RBC Morphology Polychromasia Hypochromasia Poikilocytosis Anisocytosis RBC Fragments D-Dimer ABG Methemoglobin VBG pH VBG pO2 VBG Total CO2 VBG O2 Saturation VBG Base Excess Carboxyhemoglobin Total Hemoglobin Potassium Chloride Carbon Dioxide 21 L Anion Gap 19.0 H BUN 47 H Creatinine 4.1 H Glucose Calcium ALT 41 H Alkaline Phosphatase 129 H Total Creatine Kinase Myoglobin Troponin T 0.18 H* C-Reactive Protein NT-Pro-B Natriuret Pep Total Protein Globulin 08/04/19 08/04/19 08/03/19 04:40 01:00 19:06 WBC RBC Hgb Hct MCHC RDW Seg Neutrophils % Lymphocytes % RBC Morphology Polychromasia Hypochromasia Poikilocytosis Anisocytosis RBC Fragments D-Dimer ABG Methemoglobin VBG pH VBG pO2 VBG Total CO2 VBG O2 Saturation VBG Base Excess Carboxyhemoglobin Total Hemoglobin Potassium Chloride Carbon Dioxide Anion Gap BUN Creatinine Glucose Calcium ALT Alkaline Phosphatase Total Creatine Kinase Myoglobin Troponin T 0.20 H* 0.17 H* C-Reactive Protein 4.4 H NT-Pro-B Natriuret Pep Total Protein Globulin 08/03/19 08/03/19 08/03/19 19:06 15:52 15:52 WBC RBC Hgb Hct MCHC RDW Seg Neutrophils % Lymphocytes % RBC Morphology Polychromasia Hypochromasia Poikilocytosis Anisocytosis RBC Fragments D-Dimer ABG Methemoglobin 0.3 L VBG pH 7.43 H VBG pO2 151 H VBG Total CO2 29.1 H VBG O2 Saturation 94.3 H VBG Base Excess 3.2 H Carboxyhemoglobin 4.4 H Total Hemoglobin 8.9 L Potassium Chloride Carbon Dioxide Anion Gap BUN 24 H Creatinine 2.9 H Glucose 190 H Calcium 8.2 L ALT Alkaline Phosphatase Total Creatine Kinase Myoglobin Troponin T C-Reactive Protein NT-Pro-B Natriuret Pep 53575.0 H Total Protein 5.6 L Globulin 1.9 L 08/03/19 08/03/19 08/03/19 15:52 11:34 11:34 WBC RBC Hgb Hct MCHC RDW Seg Neutrophils % Lymphocytes % RBC Morphology Polychromasia Hypochromasia Poikilocytosis Anisocytosis RBC Fragments D-Dimer 7.74 H ABG Methemoglobin VBG pH VBG pO2 VBG Total CO2 VBG O2 Saturation VBG Base Excess Carboxyhemoglobin Total Hemoglobin Potassium Chloride Carbon Dioxide Anion Gap BUN Creatinine Glucose Calcium ALT Alkaline Phosphatase Total Creatine Kinase Myoglobin Troponin T 0.18 H* 0.17 H* C-Reactive Protein NT-Pro-B Natriuret Pep Total Protein Globulin 08/03/19 08/03/19 11:34 11:34 WBC RBC Hgb Hct MCHC RDW Seg Neutrophils % 82 H Lymphocytes % RBC Morphology Polychromasia Hypochromasia Poikilocytosis Anisocytosis RBC Fragments D-Dimer ABG Methemoglobin VBG pH VBG pO2 VBG Total CO2 VBG O2 Saturation VBG Base Excess Carboxyhemoglobin Total Hemoglobin Potassium 3.1 L Chloride 93 L Carbon Dioxide Anion Gap BUN Creatinine 2.4 H Glucose 164 H Calcium 8.4 L ALT Alkaline Phosphatase 120 H Total Creatine Kinase 17 L Myoglobin 90 H Troponin T C-Reactive Protein NT-Pro-B Natriuret Pep Total Protein 5.8 L Globulin 1.9 L Meds: Medications Acetaminophen (Tylenol) 650 mg PO Q6HP PRN; Protocol PRN Reason: Per Pain Protocol/Fever > 101 Last Admin: 08/05/19 19:33 Dose: 650 mg Documented by: Hydrocodone Bitart/Acetaminophen ([place] 5/325mg) 2 tab PO Q6HP PRN; Protocol PRN Reason: Pain Last Admin: 08/06/19 09:29 Dose: 2 tab Documented by: Albuterol/Ipratropium (Duoneb) 3 ml NEB Q6HRT [facility] Last Admin: 08/06/19 07:07 Dose: 3 ml Documented by: Alprazolam (Xanax) 0.5 mg PO Q8HP PRN PRN Reason: Anxiety Last Admin: 08/06/19 09:29 Dose: 0.5 mg Documented by: Amlodipine Besylate (Norvasc) 10 mg PO MOWEFR@0500 [facility] Last Admin: 08/05/19 05:28 Dose: 10 mg Documented by: Amlodipine Besylate (Norvasc) 10 mg PO SuTuThSa@0730 [facility] Last Admin: 08/06/19 07:09 Dose: 10 mg Documented by: Aspirin (Aspirin) 81 mg PO DAILY [facility] Last Admin: 08/06/19 08:32 Dose: 81 mg Documented by: Benzonatate (Tessalon) 200 mg PO TIDP PRN PRN Reason: Cough Last Admin: 08/04/19 17:41 Dose: 200 mg Documented by: Bisacodyl (Dulcolax) 10 mg PO DAILY PRN PRN Reason: Constipation Bisacodyl (Dulcolax) 10 mg DC DAILY PRN PRN Reason: Constipation Calcium Acetate (Phoslo) 1,334 mg PO TIDAC [facility] Last Admin: 08/06/19 11:46 Dose: 1,334 mg Documented by: Citalopram Hydrobromide (Celexa) 20 mg PO DAILY [facility] Last Admin: 08/06/19 08:32 Dose: 20 mg Documented by: Clonidine HCl (Catapres Tts 3) 1 patch TD WEEKLY [facility] Last Admin: 08/06/19 09:25 Dose: 1 patch Documented by: Clopidogrel Bisulfate (Plavix) 75 mg PO DAILY [facility] Last Admin: 01/11/20 08:31 Dose: 75 mg Documented by: Diagnostic Test (Pha) (Accu-Chek) 1 each FS ACHS [facility] Last Admin: 08/06/19 11:39 Dose: 1 each Documented by: Docusate Sodium (Colace) 100 mg PO BID [facility] Last Admin: 08/06/19 08:31 Dose: 100 mg Documented by: Heparin Sodium (Porcine) (Heparin) 5,000 unit SQ Q12 [facility] Last Admin: 08/06/19 08:32 Dose: 5,000 unit Documented by: Hydralazine HCl (Apresoline) 10 mg IV Q4-6HP PRN PRN Reason: Hypertension Last Admin: 08/06/19 03:30 Dose: 10 mg Documented by: Piperacillin Sod/Tazobactam (Sod 2.25 gm/ Dextrose) 50 mls @ 100 mls/hr IV Q8H [facility] Last Infusion: 08/06/19 06:20 Dose: Infused Documented by: Insulin Glargine (Lantus) 6 unit SQ DAILY [facility] Insulin Human Lispro (Humalog) 0 unit SQ [facility]; Protocol Last Admin: 08/06/19 11:35 Dose: Not Given Documented by: Lactobacillus Rhamnosus (Culturelle) 1 cap PO BIDCC [facility] Last Admin: 08/06/19 08:31 Dose: 1 cap Documented by: Lactulose (Cephulac) 30 gm PO DAILYP PRN PRN Reason: Constipation Lidocaine (Lidoderm) 1 patch TOPICAL DAILY@1000 [facility] Last Admin: 08/06/19 09:47 Dose: 1 patch Documented by: Lidocaine (Lidoderm) 0 patch TOPICAL DAILY@2200 [facility] Last Admin: 08/05/19 22:00 Dose: 1 patch Documented by: Lisinopril (Zestril) 20 mg PO BID [facility] Last Admin: 08/06/19 09:25 Dose: 20 mg Documented by: Magnesium Hydroxide (Milk Of Magnesia) 30 ml PO DAILYP PRN PRN Reason: Constipation Melatonin (Melatonin 3mg Tablet) 3 mg PO HS [facility] Last Admin: 08/05/19 20:16 Dose: 3 mg Documented by: Metoprolol Tartrate (Lopressor) 25 mg PO BID [facility] Last Admin: 08/06/19 08:32 Dose: 25 mg Documented by: Mupirocin (Bactroban Oint 2%) 1 dose NARES BID [facility] Last Admin: 08/06/19 08:32 Dose: 1 dose Documented by: Nitroglycerin (Nitrostat) 0.4 mg SL Q5M PRN PRN Reason: Chest Pain Last Admin: 08/04/19 12:26 Dose: 0.4 mg Documented by: Ondansetron HCl (Zofran) 4 mg IV Q4HP PRN; Protocol PRN Reason: Nausea And Vomiting Last Admin: 08/03/19 22:10 Dose: 4 mg Documented by: Ondansetron HCl (Zofran Odt) 4 mg SL Q6HP PRN PRN Reason: Nausea And Vomiting Last Admin: 08/05/19 09:53 Dose: 4 mg Documented by: Pantoprazole Sodium (Protonix) 40 mg PO [facility] Last Admin: 08/06/19 07:09 Dose: 40 mg Documented by: Polyethylene Glycol (Miralax) 17 gm PO DAILY [facility] Last Admin: 08/06/19 08:32 Dose: 17 gm Documented by: Prednisone (Prednisone) 20 mg PO [facility] Last Admin: 08/06/19 08:31 Dose: 20 mg Documented by: Senonel (Senokot) 1 tab PO BID [facility] Last Admin: 08/06/19 08:31 Dose: 1 tab Documented by: Simethicone (Mylicon) 80 mg CHEWED DAILYP PRN PRN Reason: GAS Sodium Chloride (Saline Flush) 10 ml IV Q8 [facility] Last Admin: 08/06/19 05:50 Dose: 10 ml Documented by: Trazodone HCl (Desyrel) 50 mg PO HSP PRN PRN Reason: Sleep Vancomycin HCl (Vancomycin Per Pharmacy) 1 order IV [facility] [place]; Protocol Vitamin D (Vitamin D3) 2,000 unit PO DAILY [facility] Last Admin: 08/06/19 08:31 Dose: 2,000 unit Documented by: - ABG Interpretation ABG results: 08/03/19 15:52 ABG Methemoglobin 0.3 L VBG pH 7.43 H VBG pCO2 42.7 VBG pO2 151 H VBG HCO3 27.8 VBG Total CO2 29.1 H VBG O2 Saturation 94.3 H VBG Base Excess 3.2 H Medical - PN: A/P - Time Spent With Patient Total time spent is greater than 50% in coordination of care (as documented) at patient's floor/unit and/or counseling patient: - Narrative A/P Narrative: Acute hypoxic respiratory failure Probable COPD exacerbation and bilateral community-acquired pneumonia Probable hypervolemia Increasing sputum production increasing cough and shortness of breath with hypoxia Ordered duo nebs every 6 hourly and as needed Unable to provide sputum sample continue to vancomycin and Zosyn overnight and pharmacy to dose renally and can be changed to p.o. antibiotics tomorrow Solu-Medrol changed to prednisone 20 mg in the morning Plan is to keep her on low-dose of prednisone 10 mg daily for longer duration Her MRSA screen came back positive Non-ST elevation TN probably type II Patient troponin was elevated 0.18 and the second troponin after 4 hours was 0.17 With end-stage renal disease this could be a stress response with a subendocardial coronary artery disease Patient had history of previous coronary artery disease Continue her home medications Continue metoprolol Echocardiogram showing ejection fraction 60-65, no wall motion abnormalities, elevated pulmonary pressure Troponin trend remain same 0.17 Unremarkable telemetry monitoring Pulmonary hypertension probably secondary to COPD Need outpatient follow-up Strongly encourage her to keep smoking End-stage renal disease Underwent dialysis Nephrology considering further dialysis today Hypertensive urgency--intermittent Lisinopril increased to 20 twice daily Clonidine dose increased Outpatient follow-up with nephrology Chronic anemia Hemoglobin 9.7 and will monitor Probably due to ESRD DVT prophylaxis-subcu heparin CODE STATUS-DNR, verified with the patient Medical - PN: Qual - VTE Deep Vein Thrombosis/Pulmonary Embolism Present on Admission: No
[2019-08-06] MEDS: MELATONIN 3 MG TABLET PO SCH (20:48)
[2019-08-07] MEDS: IPRATROPIUM/ALBUTEROL 3 ML AMPUL.NEB NEB SCH ×4 (00:29→18:45)
[2019-08-07] MEDS: 0.9 % SODIUM CHLORIDE 10 ML SYRINGE IV SCH ×4 (03:03→21:16)
[2019-08-07] MEDS: hydrALAZINE 20 MG/ML VIAL IV PRN (03:03)
[2019-08-07] MEDS: PIPERACILLIN SODIUM/TAZOBACTAM 2.25 GM in DEXTROSE 5% IN WATER 50 ML IV SCH ×3 (05:52→21:19)
[2019-08-07 06:01] LABS: Hematocrit 30.8 % (34.1-44.9); Hemoglobin 9.6 g/dL (11.2-15.7); Mean Cell Volume 99.4 fL (80.0-100.0); Mean Corpuscular HGB Conc 31.2 g/dL (31.0-36.0); Mean Platelet Volume 9.7 fL (7.4-10.4); Platelet Count 282 K/mcL (140-440); Red Cell Distribution Width 15.8 % (11.5-14.5); WBC 9.9 K/mcL (4.50-11.00)
[2019-08-07 07:13] LABS: Anisocytosis 1+ (NONE SEEN); Lymphocytes % 21 % (15-49); Monocytes % (Manual) 8 % (1-12); Platelet Estimate NORMAL (NORMAL); Poikilocytosis 1+ (NONE SEEN); RBC Fragments 1+ (NONE SEEN); RBC Morphology ABNORM (NORMAL); Segmented Neutrophils % 71 % (38-78)
[2019-08-07 07:28] LABS: ALT/SGPT 20 U/l (0-40); AST/SGOT 9 U/l (0-37); Albumin 3.6 gm/dL (3.2-5.2); Alkaline Phosphatase 81 U/L (39-117); Bilirubin,Total 0.3 mg/dL (0.0-1.0); Calcium 8.4 mg/dl (8.6-10.4); Carbon Dioxide 23 mmol/L (22-30); Globulin 1.8 gm/dL (2.2-3.7); Glucose 117 mg/dL (70-105)
[2019-08-07 07:29] LABS: Blood Urea Nitrogen 57 mg/dl (8-23); Chloride 95 mmol/L (96-108); Glomerular Filtration Rate 10
[2019-08-07] MEDS: INSULIN LISPRO 1 UNIT/0.01 ML UNIT SQ SCH ×4 (08:49→21:18)
[2019-08-07] MEDS: PANTOPRAZOLE 40 MG TABLET PO SCH (08:50)
[2019-08-07] MEDS: amLODIPine 10 MG TABLET PO SCH (08:50)
[2019-08-07] MEDS: ONDANSETRON 4 MG/2 ML VIAL IV PRN (09:05)
--- NOTE | 2019-08-07 10:15 | Discharge Summary ---
Medical - DS: Prov Patient information: Note initiated : 08/07/19 at 10:13 am Service Date, if different from initiated Date: [] Patient: Ronnit,Cherelle gonzalez 63 y/o F admitted on 08/03/19 for shortness of breath, chest pain. Chief Complaint: [] Date of admission: 08/03/19 20:15 Discharge date: 08/07/19 Primary care physician: Leta Araujo Consults: 08/03/19 Consult to Physician [CONS] Stat Comment: Consulting Provider: Nathan Tafoya Reason For Exam: Physician to Consult 08/03/19 18:17 Consult to Physician [CONS] Stat Comment: Consulting Provider: Hector Wells Reason For Exam: Physician to Consult Medical - DS: Meds - Discharge Medications Active and Home Medications: Home Medications Citalopram Hydrobromide [Celexa] 20 mg PO DAILY 07/11/15 [History Confirmed 08/04/19 Last Taken 04/16/19] Aspirin [Aspirin EC] 81 mg PO DAILY 07/18/18 [History Confirmed 08/04/19 Last Taken 04/16/19] Clopidogrel Bisulfate [Plavix] 75 mg PO DAILY 07/18/18 [History Confirmed 08/04/19 Last Taken 04/17/19] amLODIPine [Norvasc] 10 mg PO MOWEFR@0500 09/20/18 [History Confirmed 08/04/19 Last Taken 04/18/19] cloNIDine [Catapres-Tts 2] 1 patch TOPICAL FR@0900 09/20/18 [History Confirmed 08/04/19 Last Taken 04/15/19] Anoro Ellipta [Umeclidinium-Vilanterol 62.5-25 Mcg/Inh] 1 puff INH DAILY 04/18/19 [History Confirmed 08/04/19 Last Taken 04/16/19] Calcium Acetate [Phoslo] 1,334 mg PO TIDAC 04/18/19 [History Confirmed 08/04/19 Last Taken 04/16/19] Ipratropium/Albuterol [Duoneb] 3 ml NEB Q6H 04/18/19 [History Confirmed 08/04/19 Last Taken 04/17/19] L.acidoph,Paracasei, B.lactis [Probiotic] 1 cap PO BIDCC 04/18/19 [History Confirmed 08/04/19 Last Taken 04/16/19] Lidocaine [Aspercreme Lidocaine] 1 patch TOPICAL DAILY 04/18/19 [History Confirmed 08/04/19 Last Taken 04/17/19] Melatonin [Melatin] 3 mg PO HS 04/18/19 [History Confirmed 08/04/19 Last Taken 04/17/19] Polyethylene Glycol 3350 [Miralax] 17 gm PO DAILY 04/18/19 [History Confirmed 08/04/19 Last Taken Unknown] Tiotropium [place] [Spiriva] 18 mcg INH DAILY 04/18/19 [History Confirmed 08/04/19 Last Taken Unknown] amLODIPine [Norvasc] 10 mg PO SUTUTHSA@0730 04/18/19 [History Confirmed 08/04/19 Last Taken 04/17/19] Ondansetron HCl [Zofran] 4 mg PO Q6HP PRN 04/19/19 [History Confirmed 08/04/19 Last Taken Unknown] Simethicone [Mylicon] 80 mg CHEWED DAILYP PRN 04/19/19 [History Confirmed 08/04/19 Last Taken Unknown] traZODone HCL [Desyrel] 50 mg PO HSP PRN 04/19/19 [History Confirmed 08/04/19 Last Taken Unknown] Lactulose [Cephulac] 30 gm PO DAILYP PRN #20 oral.ar 04/21/19 [Rx Confirmed 08/04/19 Last Taken Unknown] Lisinopril [Zestril] 20 mg PO HS #30 tab 04/21/19 [Rx Confirmed 08/04/19 Last Taken Unknown] Sennosides [Senna] 8.6 mg PO BID #60 tab 04/21/19 [Rx Confirmed 08/04/19 Last Taken Unknown] ALPRAZolam [Xanax] 0.5 mg PO Q8 PRN 08/04/19 [History Confirmed 08/04/19 Last Taken Unknown] Benzonatate [Tessalon [place]] 200 mg PO TID PRN 08/04/19 [History Confirmed 08/04/19 Last Taken Unknown] Bisacodyl [Dulcolax] 10 mg PO DAILY PRN 08/04/19 [History Confirmed 08/04/19 Last Taken Unknown] Bisacodyl [Dulcolax] [address] DAILY PRN 08/04/19 [History Confirmed 08/04/19 Last Taken Unknown] Dextran 70/Hypromellose [Artificial Tears] 1 each OU TID 08/04/19 [History Confirmed 08/04/19 Last Taken Unknown] HYDROcodone/APAP 5/325MG [[place] 5-325Mg] 2 tab PO Q6 PRN 08/04/19 [History Confirmed 08/04/19 Last Taken Unknown] Insulin Aspart [Novolog] See Protocol SQ ACHS 08/04/19 [History Confirmed 08/04/19 Last Taken Unknown] Insulin Glargine,Hum.rec.anlog [Lantus Solostar] 10 unit SQ QHS 08/04/19 [History Confirmed 08/04/19 Last Taken Unknown] Magnesium Hydroxide [Milk of Magnesia] 30 ml PO DAILYP PRN 08/04/19 [History Confirmed 08/04/19 Last Taken Unknown] Metoprolol Tartrate [Lopressor] 25 mg PO BID 08/04/19 [History Confirmed 08/04/19 Last Taken Unknown] Nitroglycerin [Nitrostat] 0.4 mg SL Q5M PRN 08/04/19 [History Confirmed 08/04/19 Last Taken Unknown] Pantoprazole Sodium [Protonix] 20 mg PO DAILY 08/04/19 [History Confirmed 08/04/19 Last Taken Unknown] Vitamin D3 2,000 unit PO DAILY 08/04/19 [History Confirmed 08/04/19 Last Taken Unknown] predniSONE [Prednisone] 20 mg PO QAM 08/04/19 [History Confirmed 08/04/19 Last Taken Unknown] Medical - DS: Hosp Hospital Course: 63-year-old female with a history of end-stage renal disease on dialysis, uncontrolled hypertension, congestive heart failure, CAD status post stent x3 placement was brought to the ER due to chest pain. Patient was at the dialysis center and during dialysis patient started having chest pain and they held the dialysis and transferred to the ER. Patient chest pain continued even after giving sublingual nitro her blood pressure was in 1 70-1 80 patient had similar chest pain in the past during dialysis. Patient had a previous cardiac work-up done to 3 years ago underwent stent placement x3. Since then patient was on dual antiplatelet patient denied any anticoagulation. She was also having active shortness of breath and hypoxic oxygenation 85 to 86% she received Solu- Medrol 1 dose and DuoNeb treatment in the ER. Her initial troponin was 0.18 and repeat troponin was 0.17 and she always had slightly elevated troponin 0.3 in the past. She was also having active wheezing during my encounter with increasing cough she is an active smoker. Chest x-ray showed cardiomegaly and a underwent chest CTA due to elevated d-dimer which came back positive for pneumonia bilaterally. She was started on ceftriaxone and azithromycin in the ER. 08/04 Overnight patient went into severe respiratory failure requiring BiPAP and high flow oxygen. Patient was also very anxious discussed with the patient and daughter multiple times and patient reconfirms she is a DNR does not want any intubation even if she is dying. Antibiotic broadened to vancomycin and Zosyn. Using morphine for anxiety and breathing difficulty. Updated nephrology and got the dialysis discussed with the nephrology this morning and plan is to continue dialysis. Respiratory failure slightly improved compared to yesterday. 08/05/19 Her MRSA screen is positive She is feeling better Continuing vancomycin and Zosyn Solu-Medrol will change to prednisone Her anxiety is better with the Xanax She has intermittently elevated blood pressure noted hydralazine She is also getting dialysis 08/06 Patient continues to feel better Because of her extensive pneumonia we will continue IV antibiotics for another day Blood pressure was elevated and clonidine dose was increased and lisinopril increased to 20 twice daily Her oxygenation is 2 to 4 L of nasal cannula which is close to her baseline 08/07 Patient is feeling significantly better she is oxygenating to 3 L on nasal cannula oxygen which is her baseline She is having more loose stools probably due to laxatives from yesterday and we are holding laxatives Antibiotic will be changed to Augmentin and doxycycline She needs to follow-up with a primary care provider and nephrology Strongly encourage her to stop smoking Advised her to continue low-dose prednisone 10 mg daily Acute hypoxic respiratory failure Probable COPD exacerbation bilateral community-acquired pneumonia Increasing sputum production increasing cough and shortness of breath with hypoxia Ordered duo nebs every 6 hourly and as needed Unable to provide sputum sample CT scan showed bilateral pneumonia continue to vancomycin and Zosyn overnight and pharmacy to dose renally since admission and change to Augmentin and doxycycline upon discharge Solu-Medrol changed to prednisone 20 mg and advised her to continue for another 5 days and then cut back to 10 mg and continue Plan is to keep her on low-dose of prednisone 10 mg daily for longer duration Her MRSA screen - positive Non-ST elevation DC probably type II Probably due to hypervolemia and underlying CAD Patient troponin was elevated 0.18 and the second troponin after 4 hours was 0.17 She was hypervolemic upon admission With end-stage renal disease this could be a stress response with a subendocardial coronary artery disease Patient had history of previous coronary artery disease Continue her home medications Continue metoprolol Echocardiogram showing ejection fraction 60-65, no wall motion abnormalities, elevated pulmonary pressure Troponin trend remain same 0.17 Unremarkable telemetry monitoring Chest pain Patient was complaining of intermittent chest pain No significant EKG changes troponin was mildly elevated upon admission but no significant change Patient probably has mild to moderate coronary artery disease based on her previous angiogram Strongly recommend her to follow-up with cardiology Echocardiogram was unremarkable for wall motion abnormalities ejection fraction was 60 to 65% and moderate pulmonary hypertension Pulmonary hypertension probably secondary to COPD Need outpatient follow-up Strongly encourage her to keep smoking End-stage renal disease Underwent dialysis Nephrology considering further dialysis today Hypertensive urgency--intermittent Lisinopril increased to 20 twice daily Clonidine dose increased Outpatient follow-up with nephrology Chronic anemia Hemoglobin 9.7 and will monitor Probably due to ESRD Discharge diagnosis: Bilateral pneumonia, acute hypoxic respiratory failure Secondary discharge diagnosis: Pulmonary hypertension Non-ST elevation DC Hypertensive urgency Continued smoking Time spent discussing smoking cessation with patient: more than 10 minutes - Time Spent with Patient Total time spent providing and/or coordinating discharge services: Greater than 30 minutes Medical - DS: Exam - Constitutional Vitals: Vital Signs Temp Pulse Pulse Resp BP Pulse Ox 08/07/19 09:01 97 H 18 182/89 100 08/07/19 08:02 74 22 165/69 94 08/07/19 08:00 94 08/07/19 07:11 74 17 93 08/07/19 07:01 71 18 181/86 92 08/07/19 06:57 72 16 08/07/19 06:01 84 20 184/88 97 08/07/19 05:01 71 19 167/73 93 08/07/19 04:43 98.2 F 08/07/19 04:01 70 18 169/83 93 08/07/19 03:11 73 18 95 08/07/19 03:01 84 22 177/93 90 08/07/19 02:43 93 H 19 185/96 93 08/07/19 02:02 71 19 154/64 95 08/07/19 01:30 17 08/07/19 01:01 71 22 175/91 94 08/07/19 00:08 75 20 97 08/07/19 00:01 73 20 168/86 91 08/06/19 23:40 36 H 90 08/06/19 23:01 74 19 177/80 93 08/06/19 22:01 81 177/91 90 08/06/19 21:01 74 22 173/81 91 08/06/19 20:56 98.1 F 08/06/19 20:01 73 21 162/83 94 08/06/19 19:27 72 22 08/06/19 19:01 73 20 159/81 95 08/06/19 18:51 22 94 08/06/19 18:07 97.7 F 08/06/19 18:01 93 H 26 H 173/94 90 08/06/19 16:55 84 23 H 164/89 93 08/06/19 16:01 98.6 F 76 20 179/80 93 08/06/19 15:01 76 19 146/81 91 08/06/19 14:01 22 160/82 08/06/19 14:00 17 91 08/06/19 13:33 78 19 08/06/19 13:32 71 21 92 08/06/19 13:01 98 H 24 H 159/88 92 08/06/19 12:01 79 20 160/84 96 08/06/19 11:01 76 16 158/81 90 Intake and Output 08/06/19 08/07/19 08/07/19 21:59 05:59 13:59 Intake Total 300 630 22 Balance 300 630 22 Intake: IV 50 22 Zosyn 2.25 gm In Dextrose 5% in 50 22 Water 50 ml @ 100 mls/hr IV Q8H [facility] Rx#:[id number] Oral 300 580 Other: Meal Dinner Percent of Meal Consumed 100% Feeding Ability Independent Stool Size Large Moderate Stool Color Brown Brown Stool Consistency Soft Soft # Bowel Movements 1 # of times incontinent of 1 Bowels Weight 137 lb 4.8 oz - Head Head exam: Present: atraumatic, normal inspection, normocephalic - Eye Eye exam: Present: conjunctival injection. Absent: nystagmus, periorbital swelling, periorbital tenderness - ENT ENT exam: Present: mucous membranes moist, normal external ear exam, normal oropharynx - Respiratory Respiratory exam: Present: decreased breath sounds, rales, wheezes. Absent: chest wall tenderness - Cardiovascular Cardiovascular exam: Present: normal rate and rhythm. Absent: bradycardia, diastolic murmur - GI/Abdominal GI/Abdominal exam: Present: normal bowel sounds, soft, distended - Neurological Exam Neurological exam: Present: alert, oriented X3, reflexes normal. Absent: motor sensory deficit Medical - DS: Data Labs on day of discharge: Labs from last 24 hours 08/07/19 08/07/19 08/07/19 06:50 05:00 05:00 WBC 9.9 RBC 3.10 L Hgb 9.6 L Hct 30.8 L MCV 99.4 MCH 31.0 MCHC 31.2 RDW 15.8 H Plt Count 282 MPV 9.7 Total Counted 100 Seg Neutrophils % 71 Band Neutrophils % Not Reportable Lymphocytes % 21 Monocytes % (Manual) 8 Platelet Estimate Normal RBC Morphology Abnorm A Poikilocytosis 1+ A Anisocytosis 1+ A RBC Fragments 1+ A Sodium 134 TNP Potassium 4.3 TNP Chloride 95 L TNP Carbon Dioxide 23 TNP Anion Gap 16.0 TNP BUN 57 H TNP Creatinine 4.4 H TNP GFR Calculation 10 TNP Glucose 117 H TNP Calcium 8.4 L TNP Total Bilirubin 0.3 TNP AST 9 TNP ALT 20 TNP Alkaline Phosphatase 81 TNP Total Protein 5.4 L TNP Albumin 3.6 TNP Globulin 1.8 L TNP Albumin/Globulin Ratio 2.0 TNP 08/06/19 05:05 WBC 11.6 H RBC 3.19 L Hgb 9.8 L Hct 31.9 L MCV 100.0 MCH 30.7 MCHC 30.7 L RDW 15.6 H Plt Count 332 MPV 9.6 Total Counted 100 Seg Neutrophils % 72 Band Neutrophils % 1 Lymphocytes % 18 Monocytes % (Manual) 9 Platelet Estimate Normal RBC Morphology Abnormal Poikilocytosis Few A Anisocytosis Few A RBC Fragments Few A Sodium Potassium Chloride Carbon Dioxide Anion Gap BUN Creatinine GFR Calculation Glucose Calcium Total Bilirubin AST ALT Alkaline Phosphatase Total Protein Albumin Globulin Albumin/Globulin Ratio Medical - DS: A/P - Patient/Caregiver Discharge Instructions Activity: increase activity as tolerated Diet: Renal Prescriptions: Amoxicillin/Potassium Clav [Augmentin] 500 mg PO BID 7 Days #14 tablet cloNIDine TTS 3 [Catapres Tts 3] 1 patch TD WEEKLY #5 patch Insulin Glargine,Hum.rec.anlog [Lantus Solostar] 8 unit SQ QAM #3 ml predniSONE [Prednisone] 20 mg PO QAMCC #30 tablet Doxycycline Hyclate [Vibramycin] 100 mg PO BID 7 Days #14 capsule Lisinopril [Zestril] 20 mg PO BID #60 tab - Follow up Plan Follow up with: Leta Araujo MD [Primary Care Provider] - Disposition: Xfer SNF Prognosis: Critical Rehab Potential: Critical I certify that the patient requires SNF services: Yes Overall status at discharge: patient is progressing back to baseline Medical - DS: Qual - VTE Deep Vein Thrombosis/Pulmonary Embolism Present on Admission: No
[2019-08-07] MEDS: ASPIRIN 81 MG TAB.CHEW PO SCH (10:16)
[2019-08-07] MEDS: HYDROcodone/APAP 5/325MG TABLET PO PRN ×3 (10:16→22:58)
[2019-08-07] MEDS: METOPROLOL TARTRATE 25 MG TABLET PO SCH ×2 (10:16→21:15)
[2019-08-07] MEDS: VITAMIN D3 1,000 UNIT TABLET PO SCH (10:17)
[2019-08-07] MEDS: CLOPIDOGREL 75 MG TABLET PO SCH (10:17)
[2019-08-07] MEDS: CITALOPRAM 20 MG TABLET PO SCH (10:17)
[2019-08-07] MEDS: predniSONE 20 MG TABLET PO SCH (10:17)
[2019-08-07] MEDS: LISINOPRIL 20 MG TABLET PO SCH ×2 (10:17→21:14)
[2019-08-07] MEDS: CALCIUM ACETATE 667 MG CAPSULE PO SCH ×3 (10:59→16:58)
[2019-08-07] MEDS: SENNOSIDES 1 TABLET PO SCH ×2 (11:00→21:12)
[2019-08-07] MEDS: LIDOCAINE PATCH TOPICAL SCH ×2 (11:00→21:16)
[2019-08-07] MEDS: DOCUSATE SODIUM 100 MG CAPSULE PO SCH ×2 (11:00→21:12)
[2019-08-07] MEDS: POLYETHYLENE GLYCOL 3350 17 GM PACKET PO SCH (11:00)
[2019-08-07] MEDS: LACTOBACILLUS 1 CAPSULE PO SCH ×2 (11:01→16:58)
[2019-08-07] MEDS: HEPARIN 5,000 UNIT/ML VIAL SQ SCH ×2 (11:01→21:15)
[2019-08-07] MEDS: INSULIN GLARGINE, HUMAN 1 UNIT/0.01 ML SQ SCH (11:02)
[2019-08-07] MEDS: MUPIROCIN OINT 2% 22GM NARES SCH ×2 (14:05→21:14)
--- NOTE | 2019-08-07 15:45 | Internal Med Progress Note ---
Medical - PN: Subj Patient information: Note initiated : 08/07/19 at 3:43 pm Service Date, if different from initiated Date: [] Patient: Covert,Cherelle gonzalez 63 y/o F admitted on 08/03/19 for shortness of breath, chest pain. Chief Complaint: [] Interval history: 63-year-old female with a history of end-stage renal disease on dialysis, uncontrolled hypertension, congestive heart failure, CAD status post stent x3 placement was brought to the ER due to chest pain. Patient was at the dialysis center and during dialysis patient started having chest pain and they held the dialysis and transferred to the ER. Patient chest pain continued even after giving sublingual nitro her blood pressure was in 1 70-1 80 patient had similar chest pain in the past during dialysis. Patient had a previous cardiac work-up done to 3 years ago underwent stent placement x3. Since then patient was on dual antiplatelet patient denied any anticoagulation. She was also having active shortness of breath and hypoxic oxygenation 85 to 86% she received Solu- Medrol 1 dose and DuoNeb treatment in the ER. Her initial troponin was 0.18 and repeat troponin was 0.17 and she always had slightly elevated troponin 0.3 in the past. She was also having active wheezing during my encounter with increasing cough she is an active smoker. Chest x-ray showed cardiomegaly and a underwent chest CTA due to elevated d-dimer which came back positive for pneumonia bilaterally. She was started on ceftriaxone and azithromycin in the ER. 08/04 Overnight patient went into severe respiratory failure requiring BiPAP and high flow oxygen. Patient was also very anxious discussed with the patient and daughter multiple times and patient reconfirms she is a DNR does not want any intubation even if she is dying. Antibiotic broadened to vancomycin and Zosyn. Using morphine for anxiety and breathing difficulty. Updated nephrology and got the dialysis discussed with the nephrology this morning and plan is to continue dialysis. Respiratory failure slightly improved compared to yesterday. 08/05/19 Her MRSA screen is positive She is feeling better Continuing vancomycin and Zosyn Solu-Medrol will change to prednisone Her anxiety is better with the Xanax She has intermittently elevated blood pressure noted hydralazine She is also getting dialysis 08/06 Patient continues to feel better Because of her extensive pneumonia we will continue IV antibiotics for another day Blood pressure was elevated and clonidine dose was increased and lisinopril increased to 20 twice daily Her oxygenation is 2 to 4 L of nasal cannula which is close to her baseline 08/07 Patient is feeling significantly better she is oxygenating to 3 L on nasal eleno tiago oxygen which is her baseline She is having more loose stools probably due to laxatives from yesterday and we are holding laxatives Antibiotic will be changed to Augmentin and doxycycline She needs to follow-up with a primary care provider and nephrology Strongly encourage her to stop smoking Advised her to continue low-dose prednisone 10 mg daily Pertinent ROS: resp: sob better, no cp cvs: no cp, no syncope, abd: no pain, loose stools neuro: no vision change, no focal def - Constitutional Vitals: Vital Signs Temp Pulse Resp BP Pulse Ox 98.2 F 73 19 157/85 94 08/07/19 04:43 08/07/19 14:24 08/07/19 14:24 08/07/19 13:01 08/07/19 14:24 Period Temp Pulse Resp BP Sys/Talley Pulse Ox Last 24 Hr 97.7 F-98.6 F 70-97 16-36 137-185/64-125 90-100 Intake and Output 08/07/19 08/07/19 08/07/19 05:59 13:59 21:59 Intake Total 630 122 0 Balance 630 122 0 Intake & Output: Intake & Output 08/07/19 08/07/19 08/07/19 05:59 13:59 21:59 Intake Total 630 122 0 Balance 630 122 0 Intake: IV 50 22 0 Zosyn 2.25 gm In Dextrose 5% in 50 22 0 Water 50 ml @ 100 mls/hr IV Q8H [facility] Rx#:[id number] Oral 580 100 Other: Meal Breakfast Percent of Meal Consumed 75% Stool Size Moderate Large Stool Color Brown Brown Stool Consistency Soft Soft - Head Head exam: Present: atraumatic, normal inspection, normocephalic - Eye Eye exam: Present: conjunctival injection. Absent: nystagmus - ENT ENT exam: Present: mucous membranes moist, normal external ear exam, normal oropharynx - Neck Neck exam: Present: normal inspection. Absent: lymphadenopathy, meningismus - Respiratory Respiratory exam: Present: accessory muscle use, decreased breath sounds, whee zes. Absent: respiratory distress - Cardiovascular Cardiovascular exam: Present: bradycardia, irregular rhythm. Absent: diastolic murmur - GI/Abdominal GI/Abdominal exam: Present: normal bowel sounds, soft - Neurological Exam Neurological exam: Present: alert, oriented X3, reflexes normal Medical - PN: Obj Da - Labs CBC & Chem 7: 08/07/19 05:00 08/07/19 06:50 Labs: Abnormal Lab Results 08/07/19 08/07/19 08/06/19 06:50 05:00 05:05 WBC 11.6 H RBC 3.10 L 3.19 L Hgb 9.6 L 9.8 L Hct 30.8 L 31.9 L MCHC 30.7 L RDW 15.8 H 15.6 H Seg Neutrophils % Lymphocytes % RBC Morphology Abnorm A Polychromasia Hypochromasia Poikilocytosis 1+ A Few A Anisocytosis 1+ A Few A RBC Fragments 1+ A Few A Chloride 95 L Carbon Dioxide Anion Gap BUN 57 H Creatinine 4.4 H Glucose 117 H Calcium 8.4 L ALT Alkaline Phosphatase Total Protein 5.4 L Globulin 1.8 L 08/05/19 08/05/19 08/04/19 18:55 05:10 19:00 WBC 11.8 H RBC 2.94 L Hgb 9.2 L Hct 28.5 L MCHC RDW 15.1 H Seg Neutrophils % 93 H Lymphocytes % 5 L RBC Morphology Abnorm A Polychromasia 1+ A Hypochromasia 1+ A Poikilocytosis Anisocytosis RBC Fragments Chloride 95 L Carbon Dioxide 21 L Anion Gap 17.0 H 19.0 H BUN 47 H Creatinine 2.4 H 4.1 H Glucose 205 H Calcium ALT 41 H Alkaline Phosphatase 124 H 129 H Total Protein Globulin 2.1 L Meds: Medications Acetaminophen (Tylenol) 650 mg PO Q6HP PRN; Protocol PRN Reason: Per Pain Protocol/Fever > 101 Last Admin: 08/05/19 19:33 Dose: 650 mg Documented by: Hydrocodone Bitart/Acetaminophen ([place] 5/325mg) 2 tab PO Q6HP PRN; Protocol PRN Reason: Pain Last Admin: 08/07/19 10:16 Dose: 2 tab Documented by: Albuterol/Ipratropium (Duoneb) 3 ml NEB Q6HRT [facility] Last Admin: 08/07/19 12:41 Dose: 3 ml Documented by: Alprazolam (Xanax) 0.5 mg PO Q8HP PRN PRN Reason: Anxiety Last Admin: 08/06/19 09:29 Dose: 0.5 mg Documented by: Amlodipine Besylate (Norvasc) 10 mg PO MOWEFR@0500 [facility] Last Admin: 08/05/19 05:28 Dose: 10 mg Documented by: Amlodipine Besylate (Norvasc) 10 mg PO SuTuThSa@0730 [facility] Last Admin: 08/07/19 08:50 Dose: 10 mg Documented by: Aspirin (Aspirin) 81 mg PO DAILY [facility] Last Admin: 08/07/19 10:16 Dose: 81 mg Documented by: Benzonatate (Tessalon) 200 mg PO TIDP PRN PRN Reason: Cough Last Admin: 08/04/19 17:41 Dose: 200 mg Documented by: Bisacodyl (Dulcolax) 10 mg PO DAILY PRN PRN Reason: Constipation Bisacodyl (Dulcolax) 10 mg [place] DAILY PRN PRN Reason: Constipation Calcium Acetate (Phoslo) 1,334 mg PO TIDAC [facility] Last Admin: 08/07/19 14:06 Dose: Not Given Documented by: Citalopram Hydrobromide (Celexa) 20 mg PO DAILY [facility] Last Admin: 08/07/19 10:17 Dose: 20 mg Documented by: Clonidine HCl (Catapres Tts 3) 1 patch TD WEEKLY [facility] Last Admin: 08/06/19 09:25 Dose: 1 patch Documented by: Clopidogrel Bisulfate (Plavix) 75 mg PO DAILY [facility] Last Admin: 08/07/19 10:17 Dose: 75 mg Documented by: Diagnostic Test (Pha) (Accu-Chek) 1 each FS ACHS [facility] Last Admin: 08/07/19 14:05 Dose: Not Given Documented by: Docusate Sodium (Colace) 100 mg PO BID [facility] Last Admin: 08/07/19 11:00 Dose: Not Given Documented by: Heparin Sodium (Porcine) (Heparin) 5,000 unit SQ Q12 [facility] Last Admin: 08/07/19 11:01 Dose: 5,000 unit Documented by: Hydralazine HCl (Apresoline) 10 mg IV Q4-6HP PRN PRN Reason: Hypertension Last Admin: 08/07/19 03:03 Dose: 10 mg Documented by: Piperacillin Sod/Tazobactam (Sod 2.25 gm/ Dextrose) 50 mls @ 100 mls/hr IV Q8H [facility] Last Admin: 08/07/19 14:07 Dose: 100 mls/hr Documented by: Insulin Glargine (Lantus) 6 unit SQ DAILY [facility] Last Admin: 08/07/19 11:02 Dose: Not Given Documented by: Insulin Human Lispro (Humalog) 0 unit SQ ACHS [facility]; Protocol Last Admin: 08/07/19 14:05 Dose: Not Given Documented by: [facility]act[facility]hamnosus ([facility]lle) [facility] Last Admin: 08/07/19 11:01 Dose: 1 cap Documented by: Lactulose (Cephulac) 30 gm PO DAILYP PRN PRN Reason: Constipation Lidocaine (Lidoderm) 1 patch TOPICAL DAILY@1000 [facility] Last Admin: 08/07/19 11:00 Dose: 1 patch Documented by: Lidocaine (Lidoderm) 0 patch TOPICAL DAILY@2200 [facility] Last Admin: 08/06/19 22:04 Dose: 1 patch Documented by: Lisinopril (Zestril) 20 mg PO BID [facility] Last Admin: 08/07/19 10:17 Dose: 20 mg Documented by: Magnesium Hydroxide (Milk Of Magnesia) 30 ml PO DAILYP PRN PRN Reason: Constipation Melatonin (Melatonin 3mg Tablet) 3 mg PO HS [facility] Last Admin: 08/06/19 20:48 Dose: 3 mg Documented by: Metoprolol Tartrate (Lopressor) 25 mg PO BID [facility] Last Admin: 08/07/19 10:16 Dose: 25 mg Documented by: Mupirocin (Bactroban Oint 2%) 1 dose NARES BID [facility] Last Admin: 08/07/19 14:05 Dose: 1 dose Documented by: Nitroglycerin (Nitrostat) 0.4 mg SL Q5M PRN PRN Reason: Chest Pain Last Admin: 08/04/19 12:26 Dose: 0.4 mg Documented by: Ondansetron HCl (Zofran) 4 mg IV Q4HP PRN; Protocol PRN Reason: Nausea And Vomiting Last Admin: 08/07/19 09:05 Dose: 4 mg Documented by: Ondansetron HCl (Zofran Odt) 4 mg SL Q6HP PRN PRN Reason: Nausea And Vomiting Last Admin: 08/05/19 09:53 Dose: 4 mg Documented by: Pantoprazole Sodium (Protonix) 40 mg PO QAMAC [facility] Last Admin: 08/07/19 08:50 Dose: 40 mg Documented by: Polyethylene Glycol (Miralax) 17 gm PO DAILY [facility] Last Admin: 08/07/19 11:00 Dose: Not Given Documented by: [facility]) [facility] Last Admin: 08/07/19 10:17 Dose: 20 mg Documented by: Senna (Senokot) 1 tab PO BID [facility] Last Admin: 08/07/19 11:00 Dose: Not Given Documented by: Simethicone (Mylicon) 80 mg CHEWED DAILYP PRN PRN Reason: GAS Sodium Chloride (Saline Flush) 10 ml IV Q8 [facility] Last Admin: 08/07/19 14:08 Dose: 10 ml Documented by: Trazodone HCl (Desyrel) 50 mg PO HSP PRN PRN Reason: Sleep Vancomycin HCl (Vancomycin Per Pharmacy) 1 order IV [facility] [place]; Protocol Vitamin D (Vitamin D3) 2,000 unit PO DAILY [facility] Last Admin: 08/07/19 10:17 Dose: 2,000 unit Documented by: - ABG Interpretation ABG results: 08/03/19 15:52 ABG Methemoglobin 0.3 L VBG pH 7.43 H VBG pCO2 42.7 VBG pO2 151 H VBG HCO3 27.8 VBG Total CO2 29.1 H VBG O2 Saturation 94.3 H VBG Base Excess 3.2 H Medical - PN: A/P - Time Spent With Patient Total time spent is greater than 50% in coordination of care (as documented) at patient's floor/unit and/or counseling patient: - Narrative A/P Narrative: Acute hypoxic respiratory failure Probable COPD exacerbation bilateral community-acquired pneumonia Increasing sputum production increasing cough and shortness of breath with hypoxia Ordered duo nebs every 6 hourly and as needed Unable to provide sputum sample CT scan showed bilateral pneumonia continue to vancomycin and Zosyn overnight and pharmacy to dose renally since admission and change to Augmentin and doxycycline upon discharge Solu-Medrol changed to prednisone 20 mg and advised her to continue for another 5 days and then cut back to 10 mg and continue Plan is to keep her on low-dose of prednisone 10 mg daily for longer duration Her MRSA screen - positive Non-ST elevation [place] probably type II Probably due to hypervolemia and underlying CAD Patient troponin was elevated 0.18 and the second troponin after 4 hours was 0.17 She was hypervolemic upon admission With end-stage renal disease this could be a stress response with a subendocardial coronary artery disease Patient had history of previous coronary artery disease Continue her home medications Continue metoprolol Echocardiogram showing ejection fraction 60-65, no wall motion abnormalities, elevated pulmonary pressure Troponin trend remain same 0.17 Unremarkable telemetry monitoring Chest pain Patient was complaining of intermittent chest pain No significant EKG changes troponin was mildly elevated upon admission but no significant change Patient probably has mild to moderate coronary artery disease based on her previous angiogram Strongly recommend her to follow-up with cardiology Echocardiogram was unremarkable for wall motion abnormalities ejection fraction was 60 to 65% and moderate pulmonary hypertension Pulmonary hypertension probably secondary to COPD Need outpatient follow-up Strongly encourage her to keep smoking End-stage renal disease Underwent dialysis Nephrology considering further dialysis today Hypertensive urgency--intermittent Lisinopril increased to 20 twice daily Clonidine dose increased Outpatient follow-up with nephrology Chronic anemia Hemoglobin 9.7 and will monitor Probably due to ESRD Medical - PN: Qual - VTE Deep Vein Thrombosis/Pulmonary Embolism Present on Admission: No
[2019-08-07] MEDS: ACETAMINOPHEN 325 MG TABLET PO PRN (18:54)
[2019-08-07] MEDS: BENZONATATE 100 MG CAPSULE PO PRN (18:55)
[2019-08-07] MEDS: MELATONIN 3 MG TABLET PO SCH (21:15)
[2019-08-08] MEDS: hydrALAZINE 20 MG/ML VIAL IV PRN (02:11)
[2019-08-08] MEDS: IPRATROPIUM/ALBUTEROL 3 ML AMPUL.NEB NEB SCH ×5 (02:50→18:53)
[2019-08-08] MEDS: amLODIPine 10 MG TABLET PO SCH (03:56)
[2019-08-08] MEDS: PIPERACILLIN SODIUM/TAZOBACTAM 2.25 GM in DEXTROSE 5% IN WATER 50 ML IV SCH ×3 (05:05→22:00)
[2019-08-08] MEDS: 0.9 % SODIUM CHLORIDE 10 ML SYRINGE IV SCH ×3 (05:06→21:50)
[2019-08-08 06:13] LABS: Hematocrit 31.9 % (34.1-44.9); Hemoglobin 10.1 g/dL (11.2-15.7); Mean Cell Volume 97.9 fL (80.0-100.0); Mean Corpuscular HGB Conc 31.7 g/dL (31.0-36.0); Mean Platelet Volume 8.8 fL (7.4-10.4); Platelet Count 252 K/mcL (140-440); RBC 3.26 M/mcL (3.59-5.38); Red Cell Distribution Width 15.5 % (11.5-14.5); WBC 8.4 K/mcL (4.50-11.00)
[2019-08-08 06:48] LABS: Anisocytosis FEW (NONE SEEN); Eosinophils % (Manual) 1 % (0-7); Lymphocytes % 17 % (15-49); Monocytes % (Manual) 7 % (1-12); Platelet Estimate NORMAL (NORMAL); RBC Fragments FEW (NONE SEEN); RBC Morphology ABNORM (NORMAL); Segmented Neutrophils % 75 % (38-78)
[2019-08-08] MEDS: INSULIN LISPRO 1 UNIT/0.01 ML UNIT SQ SCH ×4 (07:30→23:57)
[2019-08-08] MEDS: SENNOSIDES 1 TABLET PO SCH ×2 (09:00→23:58)
[2019-08-08] MEDS: POLYETHYLENE GLYCOL 3350 17 GM PACKET PO SCH (09:00)
[2019-08-08] MEDS: INSULIN GLARGINE, HUMAN 1 UNIT/0.01 ML SQ SCH (09:00)
[2019-08-08] MEDS: DOCUSATE SODIUM 100 MG CAPSULE PO SCH ×2 (09:00→23:57)
[2019-08-08] MEDS: MUPIROCIN OINT 2% 22GM NARES SCH ×2 (09:00→20:23)
[2019-08-08] MEDS: LISINOPRIL 20 MG TABLET PO SCH ×2 (09:59→20:24)
[2019-08-08] MEDS: PANTOPRAZOLE 40 MG TABLET PO SCH (09:59)
[2019-08-08] MEDS: HEPARIN 5,000 UNIT/ML VIAL SQ SCH ×2 (09:59→20:24)
[2019-08-08] MEDS: ASPIRIN 81 MG TAB.CHEW PO SCH (09:59)
[2019-08-08] MEDS: predniSONE 20 MG TABLET PO SCH (09:59)
[2019-08-08] MEDS: METOPROLOL TARTRATE 25 MG TABLET PO SCH ×2 (09:59→20:24)
[2019-08-08] MEDS: CALCIUM ACETATE 667 MG CAPSULE PO SCH ×3 (09:59→17:09)
[2019-08-08] MEDS: CITALOPRAM 20 MG TABLET PO SCH (09:59)
[2019-08-08] MEDS: CLOPIDOGREL 75 MG TABLET PO SCH (09:59)
--- NOTE | 2019-08-08 10:08 | Internal Med Progress Note ---
Medical - PN: Subj Patient information: Note initiated : 08/08/19 at 10:04 am Service Date, if different from initiated Date: [] Patient: Covert,Cherelle gonzalez 63 y/o F admitted on 08/03/19 for shortness of breath, chest pain. Chief Complaint: [] Interval history: 63-year-old female with a history of end-stage renal disease on dialysis, uncontrolled hypertension, congestive heart failure, CAD status post stent x3 placement was brought to the ER due to chest pain. Patient was at the dialysis center and during dialysis patient started having chest pain and they held the dialysis and transferred to the ER. Patient chest pain continued even after giving sublingual nitro her blood pressure was in 1 70-1 80 patient had similar chest pain in the past during dialysis. Patient had a previous cardiac work-up done to 3 years ago underwent stent placement x3. Since then patient was on dual antiplatelet patient denied any anticoagulation. She was also having active shortness of breath and hypoxic oxygenation 85 to 86% she received Solu- Medrol 1 dose and DuoNeb treatment in the ER. Her initial troponin was 0.18 and repeat troponin was 0.17 and she always had slightly elevated troponin 0.3 in the past. She was also having active wheezing during my encounter with increasing cough she is an active smoker. Chest x-ray showed cardiomegaly and a underwent chest CTA due to elevated d-dimer which came back positive for pneumonia bilaterally. She was started on ceftriaxone and azithromycin in the E R. 08/04 Overnight patient went into severe respiratory failure requiring BiPAP and high flow oxygen. Patient was also very anxious discussed with the patient and daughter multiple times and patient reconfirms she is a DNR does not want any intubation even if she is dying. Antibiotic broadened to vancomycin and Zosyn. Using morphine for anxiety and breathing difficulty. Updated nephrology and g ot the dialysis discussed with the nephrology this morning and plan is to continue dialysis. Respiratory failure slightly improved compared to yesterday. 08/05/19 Her MRSA screen is positive She is feeling better Continuing vancomycin and Zosyn Solu-Medrol will change to prednisone Her anxiety is better with the Xanax She has intermittently elevated blood pressure noted hydralazine She is also getting dialysis 08/06 Patient continues to feel better Because of her extensive pneumonia we will continue IV antibiotics for another day Blood pressure was elevated and clonidine dose was increased and lisinopril increased to 20 twice daily Her oxygenation is 2 to 4 L of nasal cannula which is close to her baseline 08/07 Patient is feeling significantly better she is oxygenating to 3 L on nasal ca nnula oxygen which is her baseline She is having more loose stools probably due to laxatives from yesterday and we are holding laxatives Antibiotic will be changed to Augmentin and doxycycline She needs to follow-up with a primary care provider and nephrology Strongly encourage her to stop smoking Advised her to continue low-dose prednisone 10 mg daily 08/08-patient doing well. No overnight events. No concerns per staff. No fever chills nausea vomiting. Breathing much improved. Ongoing hemodialysis. Possible [facility]. Patient does not quite feel back at baseline. However much improved since admission. - Constitutional Vitals: Vital Signs Temp Pulse Resp BP Pulse Ox 98.4 F 68 18 158/77 93 08/08/19 08:01 08/08/19 07:21 08/08/19 08:07 08/08/19 08:01 08/08/19 08:07 Period Temp Pulse Resp BP Sys/Talley Pulse Ox Last 24 Hr 98.0 F-98.6 F 68-96 16-31 137-195/70-125 92-100 Intake and Output 08/07/19 08/08/19 08/08/19 21:59 05:59 13:59 Intake Total 460 240 Balance 460 240 Weight 139 lb 4.8 oz Intake & Output: Intake & Output 08/07/19 08/08/19 08/08/19 21:59 05:59 13:59 Intake Total 460 240 Balance 460 240 Weight 139 lb 4.8 oz Intake: IV 100 Zosyn 2.25 gm In Dextrose 5% in 100 Water 50 ml @ 100 mls/hr IV Q8H [facility] Rx#:[id number] Oral 360 240 Other: Meal Dinner snack Breakfast Percent of Meal Consumed 100% 100% 100% Feeding Ability Independent Stool Size Small Stool Color Brown Stool Consistency Soft # Bowel Movements 0 0 # of times incontinent of 1 Bowels General appearance: no acute distress Exam: Alert oriented Nonlabored breathing No anxiety Sitting at the edge of bed Medical - PN: Obj Da - Labs CBC & Chem 7: 08/08/19 05:07 08/07/19 06:50 Labs: Abnormal Lab Results 08/08/19 08/07/19 08/07/19 05:07 06:50 05:00 WBC RBC 3.26 L 3.10 L Hgb 10.1 L 9.6 L Hct 31.9 L 30.8 L MCHC RDW 15.5 H 15.8 H Seg Neutrophils % Lymphocytes % RBC Morphology Abnorm A Abnorm A Polychromasia Hypochromasia Poikilocytosis 1+ A Anisocytosis Few A 1+ A RBC Fragments Few A 1+ A Chloride 95 L Anion Gap BUN 57 H Creatinine 4.4 H Glucose 117 H Calcium 8.4 L Alkaline Phosphatase Total Protein 5.4 L Globulin 1.8 L 08/06/19 08/05/19 08/05/19 05:05 18:55 05:10 WBC 11.6 H RBC 3.19 L Hgb 9.8 L Hct 31.9 L MCHC 30.7 L RDW 15.6 H Seg Neutrophils % 93 H Lymphocytes % 5 L RBC Morphology Abnorm A Polychromasia 1+ A Hypochromasia 1+ A Poikilocytosis Few A Anisocytosis Few A RBC Fragments Few A Chloride 95 L Anion Gap 17.0 H BUN Creatinine 2.4 H Glucose 205 H Calcium Alkaline Phosphatase 124 H Total Protein Globulin 2.1 L Meds: Medications Acetaminophen (Tylenol) 650 mg PO Q6HP PRN; Protocol PRN Reason: Per Pain Protocol/Fever > 101 Last Admin: 08/07/19 18:54 Dose: 650 mg Documented by: Hydrocodone Bitart/Acetaminophen ([place] 5/325mg) 2 tab PO Q6HP PRN; Protocol PRN Reason: Pain Last Admin: 08/07/19 22:58 Dose: 2 tab Documented by: Albuterol/Ipratropium (Duoneb) 3 ml NEB Q6HRT [facility] Last Admin: 08/08/19 07:11 Dose: 3 ml Documented by: Alprazolam (Xanax) 0.5 mg PO Q8HP PRN PRN Reason: Anxiety Last Admin: 08/06/19 09:29 Dose: 0.5 mg Documented by: Amlodipine Besylate (Norvasc) 10 mg PO MOWEFR@0500 [facility] Last Admin: 08/08/19 03:56 Dose: 10 mg Documented by: Amlodipine Besylate (Norvasc) 10 mg PO SuTuThSa@0730 [facility] Last Admin: 08/07/19 08:50 Dose: 10 mg Documented by: Aspirin (Aspirin) 81 mg PO DAILY [facility] Last Admin: 08/07/19 10:16 Dose: 81 mg Documented by: Benzonatate (Tessalon) 200 mg PO TIDP PRN PRN Reason: Cough Last Admin: 08/07/19 18:55 Dose: 200 mg Documented by: Bisacodyl (Dulcolax) 10 mg PO DAILY PRN PRN Reason: Constipation Bisacodyl (Dulcolax) 10 mg MT DAILY PRN PRN Reason: Constipation Calcium Acetate (Phoslo) 1,334 mg PO TIDAC [facility] Last Admin: 08/07/19 16:58 Dose: 1,334 mg Documented by: Citalopram Hydrobromide (Celexa) 20 mg PO DAILY [facility] Last Admin: 08/07/19 10:17 Dose: 20 mg Documented by: Clonidine HCl (Catapres Tts 3) 1 patch TD WEEKLY [facility] Last Admin: 08/06/19 09:25 Dose: 1 patch Documented by: Clopidogrel Bisulfate (Plavix) 75 mg PO DAILY [facility] Last Admin: 08/07/19 10:17 Dose: 75 mg Documented by: Diagnostic Test (Pha) (Accu-Chek) 1 each FS ACHS [facility] Last Admin: 08/07/19 21:13 Dose: 1 each Documented by: Docusate Sodium (Colace) 100 mg PO BID [facility] Last Admin: 08/07/19 21:12 Dose: Not Given Documented by: Heparin Sodium (Porcine) (Heparin) 5,000 unit SQ Q12 [facility] Last Admin: 08/07/19 21:15 Dose: 5,000 unit Documented by: Hydralazine HCl (Apresoline) 10 mg IV Q4-6HP PRN PRN Reason: Hypertension Last Admin: 08/08/19 02:11 Dose: 10 mg Documented by: Piperacillin Sod/Tazobactam (Sod 2.25 gm/ Dextrose) 50 mls @ 100 mls/hr IV Q8H [facility] Last Admin: 08/08/19 05:05 Dose: 100 mls/hr Documented by: Insulin Glargine (Lantus) 6 unit SQ DAILY [facility] Last Admin: 08/07/19 11:02 Dose: Not Given Documented by: Insulin Human Lispro (Humalog) 0 unit SQ ACHS [facility]; Protocol Last Admin: 08/07/19 21:18 Dose: 8 unit Documented by: [facility] ([facility]lle) [facility] Last Admin: 08/07/19 16:58 Dose: 1 cap Documented by: Lactulose (Cephulac) 30 gm PO DAILYP PRN PRN Reason: Constipation Lidocaine (Lidoderm) 1 patch TOPICAL DAILY@1000 [facility] Last Admin: 08/07/19 11:00 Dose: 1 patch Documented by: Lidocaine (Lidoderm) 0 patch TOPICAL DAILY@2200 [facility] Last Admin: 08/07/19 21:16 Dose: 1 patch Documented by: Lisinopril (Zestril) 20 mg PO BID [facility] Last Admin: 08/07/19 21:14 Dose: 20 mg Documented by: Magnesium Hydroxide (Milk Of Magnesia) 30 ml PO DAILYP PRN PRN Reason: Constipation Melatonin (Melatonin 3mg Tablet) 3 mg PO [facility] Last Admin: 08/07/19 21:15 Dose: 3 mg Documented by: Metoprolol Tartrate (Lopressor) 25 mg PO BID [facility] Last Admin: 08/07/19 21:15 Dose: 25 mg Documented by: Mupirocin (Bactroban Oint 2%) 1 dose NARES BID [facility] Last Admin: 08/07/19 21:14 Dose: 1 dose Documented by: Nitroglycerin (Nitrostat) 0.4 mg SL Q5M PRN PRN Reason: Chest Pain Last Admin: 08/04/19 12:26 Dose: 0.4 mg Documented by: Ondansetron HCl (Zofran) 4 mg IV Q4HP PRN; Protocol PRN Reason: Nausea And Vomiting Last Admin: 08/07/19 09:05 Dose: 4 mg Documented by: Ondansetron HCl (Zofran Odt) 4 mg SL Q6HP PRN PRN Reason: Nausea And Vomiting Last Admin: 08/05/19 09:53 Dose: 4 mg Documented by: Pantoprazole [facility]ix) [facility] Last Admin: 08/07/19 08:50 Dose: 40 mg Documented by: Polyethylene Glycol (Miralax) 17 gm PO DAILY [facility] Last Admin: 08/07/19 11:00 Dose: Not Given Documented by: Prednisone (Prednisone) 20 mg PO [facility] Last Admin: 08/07/19 10:17 Dose: 20 mg Documented by: Senonel (Senokot) 1 tab PO BID [facility] Last Admin: 08/07/19 21:12 Dose: Not Given Documented by: Simethicone (Mylicon) 80 mg CHEWED DAILYP PRN PRN Reason: GAS Sodium Chloride (Saline Flush) 10 ml IV Q8 [facility] Last Admin: 08/08/19 05:06 Dose: 10 ml Documented by: Trazodone HCl (Desyrel) 50 mg PO HSP PRN PRN Reason: Sleep Vancomycin HCl (Vancomycin Per Pharmacy) 1 order IV UD [facility]; Protocol Vitamin D (Vitamin D3) 2,000 unit PO DAILY [facility] Last Admin: 08/07/19 10:17 Dose: 2,000 unit Documented by: - ABG Interpretation ABG results: 08/03/19 15:52 ABG Methemoglobin 0.3 L VBG pH 7.43 H VBG pCO2 42.7 VBG pO2 151 H VBG HCO3 27.8 VBG Total CO2 29.1 H VBG O2 Saturation 94.3 H VBG Base Excess 3.2 H Medical - PN: A/P - Time Spent With Patient Total time spent is greater than 50% in coordination of care (as documented) at patient's floor/unit and/or counseling patient: 25 - 35 minutes - Narrative A/P Narrative: * Acute hypoxic story failure secondary to COPD exacerbation/bilateral pneumonia continue antibiotic coverage/steroids/bronchodilators. * Hypervolemia secondary to underlying ESRD ongoing hemodialysis clinically improved. * Hypertensive urgency clinically resolved, continue YURIY inhibitor/clonidine/amlodipine * History of pulmonary hypertension secondary COPD at baseline * DM type II continue basal panel insulin * History of CAD continue Plavix/beta-zbigniew/YURIY inhibitor/nitroglycerin * Anxiety disorder continue citalopram/trazodone * Full code Plan * Continue HD per nephrology * Prior medical condition management on home meds * PT OT nutrition support * Discharge planning to SNF in 24 hours Medical - PN: Qual - VTE Deep Vein Thrombosis/Pulmonary Embolism Present on Admission: No
[2019-08-08] MEDS: LACTOBACILLUS 1 CAPSULE PO SCH ×2 (11:27→17:12)
[2019-08-08] MEDS: LIDOCAINE PATCH TOPICAL SCH (11:27)
[2019-08-08] MEDS: VITAMIN D3 1,000 UNIT TABLET PO SCH (11:27)
[2019-08-08] MEDS: NITROGLYCERIN 0.4 MG TAB.SUBL SL PRN ×2 (12:31→14:30)
[2019-08-08] MEDS: HYDROcodone/APAP 5/325MG TABLET PO PRN (15:50)
[2019-08-08] MEDS: ALPRAZolam 0.25 MG TABLET PO PRN (16:08)
[2019-08-08 16:55] LABS: Vancomycin,Random 8.6 ug/mL
[2019-08-08] MEDS ORDERED: VANCOMYCIN 1,000 MG in 0.9 % SODIUM CHLORIDE 250 ML IV ONE (17:30)
[2019-08-08] MEDS: MELATONIN 3 MG TABLET PO SCH (20:24)
[2019-08-09] MEDS: hydrALAZINE 20 MG/ML VIAL IV PRN (01:04)
[2019-08-09] MEDS: IPRATROPIUM/ALBUTEROL 3 ML AMPUL.NEB NEB SCH ×2 (01:04→08:14)
[2019-08-09] MEDS: LIDOCAINE PATCH TOPICAL SCH (01:05)
[2019-08-09] MEDS: ALPRAZolam 0.25 MG TABLET PO PRN (02:12)
[2019-08-09] MEDS: HYDROcodone/APAP 5/325MG TABLET PO PRN (02:39)
[2019-08-09] MEDS: PIPERACILLIN SODIUM/TAZOBACTAM 2.25 GM in DEXTROSE 5% IN WATER 50 ML IV SCH (06:20)
[2019-08-09] MEDS: 0.9 % SODIUM CHLORIDE 10 ML SYRINGE IV SCH (06:21)
[2019-08-09] MEDS: INSULIN GLARGINE, HUMAN 1 UNIT/0.01 ML SQ SCH (07:38)
[2019-08-09] MEDS: INSULIN LISPRO 1 UNIT/0.01 ML UNIT SQ SCH (07:39)
[2019-08-09] MEDS: CALCIUM ACETATE 667 MG CAPSULE PO SCH (07:42)
[2019-08-09] MEDS: amLODIPine 10 MG TABLET PO SCH (07:43)
[2019-08-09] MEDS: PANTOPRAZOLE 40 MG TABLET PO SCH (07:50)
[2019-08-09 07:57] LABS: ALT/SGPT 13 U/l (0-40); AST/SGOT 12 U/l (0-37); Albumin 3.5 gm/dL (3.2-5.2); Albumin/Globulin Ratio 2.2 (1.0-2.3); Alkaline Phosphatase 71 U/L (39-117); Bilirubin,Total 0.4 mg/dL (0.0-1.0); Calcium 8.1 mg/dl (8.6-10.4); Carbon Dioxide 22 mmol/L (22-30); Globulin 1.6 gm/dL (2.2-3.7); Glucose 176 mg/dL (70-105)
[2019-08-09 07:59] LABS: Blood Urea Nitrogen 32 mg/dl (8-23); Chloride 95 mmol/L (96-108); Glomerular Filtration Rate 14
[2019-08-09] MEDS ORDERED: traZODone HCL 50 MG TABLET PO PRN (08:08)
[2019-08-09] MEDS ORDERED: ACETAMINOPHEN 325 MG TABLET PO PRN (08:08)
[2019-08-09] MEDS ORDERED: ONDANSETRON 4 MG ODT TABLET SL PRN (08:08)
[2019-08-09] MEDS ORDERED: HYDROcodone/APAP 5/325MG TABLET PO PRN (08:08)
[2019-08-09] MEDS ORDERED: MAGNESIUM HYDROXIDE 30 ML ORAL.SUSP PO PRN (08:08)
[2019-08-09] MEDS ORDERED: ONDANSETRON 4 MG/2 ML VIAL IV PRN (08:08)
[2019-08-09] MEDS ORDERED: BISACODYL 10 MG SUPP.RECT PR PRN (08:08)
[2019-08-09] MEDS ORDERED: hydrALAZINE 20 MG/ML VIAL IV PRN (08:08)
[2019-08-09] MEDS ORDERED: cloNIDine TTS 3 1 PATCH PATCH TD SCH (08:08)
[2019-08-09] MEDS ORDERED: ALPRAZolam 0.25 MG TABLET PO PRN (08:08)
[2019-08-09] MEDS ORDERED: VANCOMYCIN PER PHARMACY IV SCH (08:08)
[2019-08-09] MEDS ORDERED: LACTULOSE 20 GM/30 ML ORAL.SOL PO PRN (08:08)
[2019-08-09] MEDS ORDERED: NITROGLYCERIN 0.4 MG TAB.SUBL SL PRN (08:08)
[2019-08-09] MEDS ORDERED: BISACODYL 5 MG TABLET PO PRN (08:08)
[2019-08-09] MEDS ORDERED: SIMETHICONE 80 MG TAB.CHEW CHEWED PRN (08:08)
[2019-08-09] MEDS ORDERED: BENZONATATE 100 MG CAPSULE PO PRN (08:08)
[2019-08-09] MEDS ORDERED: MUPIROCIN OINT 2% 22GM NARES SCH (09:00)
[2019-08-09] MEDS ORDERED: INSULIN GLARGINE, HUMAN 1 UNIT/0.01 ML SQ SCH (09:00)
[2019-08-09] MEDS ORDERED: METOPROLOL TARTRATE 25 MG TABLET PO SCH (09:00)
[2019-08-09] MEDS ORDERED: HEPARIN 5,000 UNIT/ML VIAL SQ SCH (09:00)
[2019-08-09] MEDS ORDERED: LISINOPRIL 20 MG TABLET PO SCH (09:00)
[2019-08-09] MEDS ORDERED: POLYETHYLENE GLYCOL 3350 17 GM PACKET PO SCH (09:00)
[2019-08-09] MEDS ORDERED: VITAMIN D3 1,000 UNIT TABLET PO SCH (09:00)
[2019-08-09] MEDS ORDERED: SENNOSIDES 1 TABLET PO SCH (09:00)
[2019-08-09] MEDS ORDERED: CLOPIDOGREL 75 MG TABLET PO SCH (09:00)
[2019-08-09] MEDS ORDERED: DOCUSATE SODIUM 100 MG CAPSULE PO SCH (09:00)
[2019-08-09] MEDS ORDERED: CITALOPRAM 20 MG TABLET PO SCH (09:00)
[2019-08-09] MEDS ORDERED: ASPIRIN 81 MG TAB.CHEW PO SCH (09:00)
--- NOTE | 2019-08-09 09:55 | Discharge Summary ---
Medical - DS: Prov Patient information: Note initiated : 08/09/19 at 9:53 am Service Date, if different from initiated Date: [] Patient: Ronnit,Cherelle gonzalez 63 y/o F admitted on 08/03/19 for shortness of breath, chest pain. Chief Complaint: [] Date of admission: 08/03/19 20:15 Discharge date: 08/09/19 Primary care physician: Leta Araujo Consults: 08/03/19 Consult to Physician [CONS] Stat Comment: Consulting Provider: Nathan Tafoya Reason For Exam: Physician to Consult 08/03/19 18:17 Consult to Physician [CONS] Stat Comment: Consulting Provider: Hector Wells Reason For Exam: Physician to Consult Medical - DS: Meds - Discharge Medications Prescriptions: Amoxicillin/Potassium Clav [Augmentin] 500 mg PO BID 7 Days #14 tab Prescription Printed cloNIDine TTS 3 [Catapres Tts 3] 1 patch TD WEEKLY #5 patch Prescription Printed Insulin Glargine,Hum.rec.anlog [Lantus Solostar] 8 unit SQ QAM #3 ml Prescription Printed HYDROcodone/APAP 5/325MG [[place] 5-325Mg] 2 tab PO Q6 PRN #20 tab PRN Reason: Pain Prescription Printed predniSONE [Prednisone] 20 mg PO QAMCC #30 tab Prescription Printed Doxycycline Hyclate [Vibramycin] 100 mg PO BID 7 Days #14 cap Prescription Printed Lisinopril [Zestril] 20 mg PO BID #60 tab Prescription Printed Active and Home Medications: Home Medications Citalopram Hydrobromide [Celexa] 20 mg PO DAILY 07/11/15 [History Confirmed 08/04/19 Last Taken 04/16/19] Aspirin [Aspirin EC] 81 mg PO DAILY 07/18/18 [History Confirmed 08/04/19 Last Taken 04/16/19] Clopidogrel Bisulfate [Plavix] 75 mg PO DAILY 07/18/18 [History Confirmed 08/04/19 Last Taken 04/17/19] amLODIPine [Norvasc] 10 mg PO MOWEFR@0500 09/20/18 [History Confirmed 08/04/19 Last Taken 04/18/19] Anoro Ellipta [Umeclidinium-Vilanterol 62.5-25 Mcg/Inh] 1 puff INH DAILY 04/18/19 [History Confirmed 08/04/19 Last Taken 04/16/19] Calcium Acetate [Phoslo] 1,334 mg PO TIDAC 04/18/19 [History Confirmed 08/04/19 Last Taken 04/16/19] Ipratropium/Albuterol [Duoneb] 3 ml NEB Q6H 04/18/19 [History Confirmed 08/04/19 Last Taken 04/17/19] L.acidoph,Paracasei, B.lactis [Probiotic] 1 cap PO BIDCC 04/18/19 [History Confirmed 08/04/19 Last Taken 04/16/19] Lidocaine [Aspercreme Lidocaine] 1 patch TOPICAL DAILY 04/18/19 [History Confirmed 08/04/19 Last Taken 04/17/19] Melatonin [Melatin] 3 mg PO HS 04/18/19 [History Confirmed 08/04/19 Last Taken 04/17/19] Polyethylene Glycol 3350 [Miralax] 17 gm PO DAILY 04/18/19 [History Confirmed 08/04/19 Last Taken Unknown] Tiotropium [place] [Spiriva] 18 mcg INH DAILY 04/18/19 [History Confirmed 08/04/19 Last Taken Unknown] amLODIPine [Norvasc] 10 mg PO SUTUTHSA@0730 04/18/19 [History Confirmed 08/04/19 Last Taken 04/17/19] Ondansetron HCl [Zofran] 4 mg PO Q6HP PRN 04/19/19 [History Confirmed 08/04/19 Last Taken Unknown] Simethicone [Mylicon] 80 mg CHEWED DAILYP PRN 04/19/19 [History Confirmed 08/04/19 Last Taken Unknown] traZODone HCL [Desyrel] 50 mg PO HSP PRN 04/19/19 [History Confirmed 08/04/19 Last Taken Unknown] Lactulose [Cephulac] 30 gm PO DAILYP PRN #20 oral.ar 04/21/19 [Rx Confirmed 08/04/19 Last Taken Unknown] Sennosides [Senna] 8.6 mg PO BID #60 tab 04/21/19 [Rx Confirmed 08/04/19 Last Taken Unknown] ALPRAZolam [Xanax] 0.5 mg PO Q8 PRN 08/04/19 [History Confirmed 08/04/19 Last Taken Unknown] Benzonatate [Tessalon Perle] 200 mg PO TID PRN 08/04/19 [History Confirmed 08/04/19 Last Taken Unknown] Bisacodyl [Dulcolax] 10 mg PO DAILY PRN 08/04/19 [History Confirmed 08/04/19 Last Taken Unknown] Bisacodyl [Dulcolax] 10 mg OR DAILY PRN 08/04/19 [History Confirmed 08/04/19 Last Taken Unknown] Dextran 70/Hypromellose [Artificial Tears] 1 each OU TID 08/04/19 [History Confirmed 08/04/19 Last Taken Unknown] Insulin Aspart [Novolog] See Protocol SQ ACHS 08/04/19 [History Confirmed 08/04/19 Last Taken Unknown] Magnesium Hydroxide [Milk of Magnesia] 30 ml PO DAILYP PRN 08/04/19 [History Confirmed 08/04/19 Last Taken Unknown] Metoprolol Tartrate [Lopressor] 25 mg PO BID 08/04/19 [History Confirmed 08/04/19 Last Taken Unknown] Nitroglycerin [Nitrostat] 0.4 mg SL Q5M PRN 08/04/19 [History Confirmed 08/04/19 Last Taken Unknown] Pantoprazole Sodium [Protonix] 20 mg PO DAILY 08/04/19 [History Confirmed 08/04/19 Last Taken Unknown] Vitamin D3 2,000 unit PO DAILY 08/04/19 [History Confirmed 08/04/19 Last Taken Unknown] predniSONE [Prednisone] 20 mg PO QAM 08/04/19 [History Confirmed 08/04/19 Last Taken Unknown] Amoxicillin/Potassium Clav [Augmentin] 500 mg PO BID 7 Days #14 tab 08/07/19 [Rx Last Taken Unknown] Doxycycline Hyclate [Vibramycin] 100 mg PO BID 7 Days #14 cap 08/07/19 [Rx Last Taken Unknown] HYDROcodone/APAP 5/325MG [[place] 5-325Mg] 2 tab PO Q6 PRN #20 tab 08/07/19 [Rx Last Taken Unknown] Insulin Glargine,Hum.rec.anlog [Lantus Solostar] 8 unit SQ QAM #3 ml 08/07/19 [Rx Last Taken Unknown] Lisinopril [Zestril] 20 mg PO BID #60 tab 08/07/19 [Rx Last Taken Unknown] cloNIDine TTS 3 [Catapres Tts 3] 1 patch TD WEEKLY #5 patch 08/07/19 [Rx Last Taken Unknown] predniSONE [Prednisone] 20 mg PO [facility] #30 tab 08/07/19 [Rx Last Taken Unknown] Medical - DS: Hosp Hospital Course: Discharge diagnosis * Acute hypoxic story failure secondary to COPD exacerbation/bilateral pneumonia continue antibiotic coverage/steroids/bronchodilators. Discharging on additional 7 days oral Augmentin * Bilateral pneumonia clinically improved. Continue aspiration precautions. Continue antibiotic for additional 7 days * Hypervolemia secondary to underlying ESRD ongoing hemodialysis clinically improved. * ESRD on HD continue per nephrology * Hypertensive urgency clinically resolved, continue home dose YURIY inhibitor/clonidine/amlodipine * History of pulmonary hypertension secondary COPD at baseline * DM type II continue home regimen * History of CAD continue Plavix/beta-zbigniew/YURIY inhibitor/nitroglycerin * Anxiety disorder continue citalopram/trazodone Brief hospital course 63-year-old female with a history of end-stage renal disease on dialysis, uncontrolled hypertension, congestive heart failure, CAD status post stent x3 placement was brought to the ER due to chest pain. Patient was at the dialysis center and during dialysis patient started having chest pain and they held the dialysis and transferred to the ER. Patient chest pain continued even after giving sublingual nitro her blood pressure was in 1 70-1 80 patient had similar chest pain in the past during dialysis. Patient had a previous cardiac work-up done to 3 years ago underwent stent placement x3. Since then patient was on dual antiplatelet patient denied any anticoagulation. She was also having active shortness of breath and hypoxic oxygenation 85 to 86% she received Solu- Medrol 1 dose and DuoNeb treatment in the ER. Her initial troponin was 0.18 and repeat troponin was 0.17 and she always had slightly elevated troponin 0.3 in the past. She was also having active wheezing during my encounter with gato elton cough she is an active smoker. Chest x-ray showed cardiomegaly and a underwent chest CTA due to elevated d-dimer which came back positive for pneumonia bilaterally. She was started on ceftriaxone and azithromycin in the ER. 08/04 Overnight patient went into severe respiratory failure requiring BiPAP and high flow oxygen. Patient was also very anxious discussed with the patient and daughter multiple times and patient reconfirms she is a DNR does not want any intubation even if she is dying. Antibiotic broadened to vancomycin and Zosyn. Using morphine for anxiety and breathing difficulty. Updated nephrology and got the dialysis discussed with the nephrology this morning and plan is to continue dialysis. Respiratory failure slightly improved compared to yesterday. 08/05/19 Her MRSA screen is positive She is feeling better Continuing vancomycin and Zosyn Solu-Medrol will change to prednisone Her anxiety is better with the Xanax She has intermittently elevated blood pressure noted hydralazine She is also getting dialysis 08/06 Patient continues to feel better Because of her extensive pneumonia we will continue IV antibiotics for another day Blood pressure was elevated and clonidine dose was increased and lisinopril increased to 20 twice daily Her oxygenation is 2 to 4 L of nasal cannula which is close to her baseline 08/07 Patient is feeling significantly better she is oxygenating to 3 L on nasal cannula oxygen which is her baseline She is having more loose stools probably due to laxatives from yesterday and we are holding laxatives Antibiotic will be changed to Augmentin and doxycycline She needs to follow-up with a primary care provider and nephrology Strongly encourage her to stop smoking Advised her to continue low-dose prednisone 10 mg daily 08/08-patient doing well. No overnight events. No concerns per staff. No fever chills nausea vomiting. Breathing much improved. Ongoing hemodialysis. Possible discharge in [facility]. Patient does not quite feel back at baseline. However much improved since admission. 08/09-patient did develop with continued hemodialysis. Currently back to baseline. Discharging to [facility]. Continue aggressive PT OT/scheduled hemodialysis. Follow-up with nephrology on discharge. Discharge diagnosis: . - Time Spent with Patient Total time spent providing and/or coordinating discharge services: Greater than 30 minutes Medical - DS: Exam - Constitutional Vitals: Vital Signs Temp Pulse Pulse Resp BP Pulse Ox 08/09/19 08:23 72 16 94 08/09/19 08:22 94 08/09/19 07:01 18 184/89 94 08/09/19 06:01 18 179/86 97 08/09/19 05:23 13 100 08/09/19 05:01 20 168/96 94 08/09/19 04:01 97.6 F 16 162/89 08/09/19 03:01 20 154/89 95 08/09/19 02:00 95 08/09/19 01:24 17 189/85 100 08/09/19 01:06 19 198/88 95 08/09/19 01:03 20 186/157 97 08/09/19 01:01 17 200/88 95 08/09/19 00:04 97.2 F 20 184/88 95 08/08/19 23:01 20 168/87 94 08/08/19 20:01 97.6 F 19 157/120 92 08/08/19 20:00 92 08/08/19 18:50 74 22 08/08/19 18:01 20 147/94 96 08/08/19 17:01 21 152/82 92 08/08/19 16:03 23 H 95 08/08/19 16:00 98.5 F 19 171/93 96 08/08/19 15:57 27 H 170/91 94 08/08/19 15:50 87 171/93 08/08/19 15:31 28 H 145/93 94 08/08/19 15:29 91 H 145/93 08/08/19 15:01 20 158/90 93 08/08/19 14:56 89 158/90 08/08/19 14:31 21 163/86 92 08/08/19 14:25 77 163/86 08/08/19 14:04 20 91 08/08/19 14:01 19 143/86 92 08/08/19 14:00 87 19 95 08/08/19 13:54 87 143/86 08/08/19 13:31 25 H 183/91 91 08/08/19 13:26 80 183/91 08/08/19 13:01 19 162/111 94 08/08/19 13:00 85 20 08/08/19 12:53 84 162/111 08/08/19 12:31 23 H 168/84 95 08/08/19 12:28 74 168/84 08/08/19 12:02 70 156/87 08/08/19 12:01 18 156/87 98 08/08/19 12:00 21 98 08/08/19 11:57 22 162/85 98 08/08/19 11:50 99.0 F 78 162/85 08/08/19 10:01 18 160/79 96 Intake and Output 08/08/19 08/09/19 08/09/19 21:59 05:59 13:59 Intake Total 300 250 290 Output Total 3300 Balance -3000 250 290 Intake: IV 300 50 50 Zosyn 2.25 gm In Dextrose 5% in 50 50 50 Water 50 ml @ 100 mls/hr IV Q8H [facility] Rx#:[id number] Vancomycin 1,000 mg In Sodium 250 Chloride 0.9% 250 ml @ 250 mls/ hr IV ONCE ONE Rx#:[id number] Oral 200 240 Output: Hemodialysis UF 3300 Other: Meal snack Breakfast Percent of Meal Consumed 100% 100% Feeding Ability Independent Independent Stool Size Moderate Stool Color Brown Stool Consistency Loose Weight 137 lb 4.8 oz Medical - DS: Data Labs on day of discharge: Labs from last 24 hours 08/09/19 08/08/19 04:49 15:51 Sodium 133 Potassium 4.7 Chloride 95 L Carbon Dioxide 22 Anion Gap 16.0 BUN 32 H Creatinine 3.3 H GFR Calculation 14 Glucose 176 H Calcium 8.1 L Total Bilirubin 0.4 AST 12 ALT 13 Alkaline Phosphatase 71 Total Protein 5.1 L Albumin 3.5 Globulin 1.6 L Albumin/Globulin Ratio 2.2 Random Vancomycin 8.6 Vancomycin Dose Not Reportable Vanco Last Dose Time Not Reportable Medical - DS: A/P - Patient/Caregiver Discharge Instructions Activity: increase activity as tolerated Diet: Renal Prescriptions: Amoxicillin/Potassium Clav [Augmentin] 500 mg PO BID 7 Days #14 tab Prescription Printed cloNIDine TTS 3 [Catapres Tts 3] 1 patch TD WEEKLY #5 patch Prescription Printed Insulin Glargine,Hum.rec.anlog [Lantus Solostar] 8 unit SQ QAM #3 ml Prescription Printed HYDROcodone/APAP 5/325MG [[place] 5-325Mg] 2 tab PO Q6 PRN #20 tab PRN Reason: Pain Prescription Printed predniSONE [Prednisone] 20 mg PO QAMCC #30 tab Prescription Printed Doxycycline Hyclate [Vibramycin] 100 mg PO BID 7 Days #14 cap Prescription Printed Lisinopril [Zestril] 20 mg PO BID #60 tab Prescription Printed Other Amb Orders: OT Discharge Order Facility: [facility], Location: [facility] at Discharge - General Facility: [facility], Location: [facility] - Follow up Plan Follow up with: Leta Araujo MD [Primary Care Provider] - Disposition: Xfer [facility] Prognosis: Critical Rehab Potential: Fair I certify that the patient requires SNF services: Yes Overall status at discharge: patient is progressing back to baseline Medical - DS: Qual - VTE Deep Vein Thrombosis/Pulmonary Embolism Present on Admission: No
[2019-08-09] MEDS: LACTOBACILLUS 1 CAPSULE PO SCH (09:56)
[2019-08-09] MEDS: predniSONE 20 MG TABLET PO SCH (09:57)
[2019-08-09] MEDS ORDERED: LIDOCAINE PATCH TOPICAL SCH ×2 (10:00→22:00)
[2019-08-09] MEDS ORDERED: INSULIN LISPRO 1 UNIT/0.01 ML UNIT SQ SCH (11:30)
[2019-08-09] MEDS ORDERED: CALCIUM ACETATE 667 MG CAPSULE PO SCH (11:30)
[2019-08-09] MEDS ORDERED: IPRATROPIUM/ALBUTEROL 3 ML AMPUL.NEB NEB SCH (13:00)
[2019-08-09] MEDS ORDERED: PIPERACILLIN SODIUM/TAZOBACTAM 2.25 GM in DEXTROSE 5% IN WATER 50 ML IV SCH (14:00)
[2019-08-09] MEDS ORDERED: 0.9 % SODIUM CHLORIDE 10 ML SYRINGE IV SCH (14:00)
[2019-08-09] MEDS ORDERED: LACTOBACILLUS 1 CAPSULE PO SCH (17:30)
[2019-08-09] MEDS ORDERED: MELATONIN 3 MG TABLET PO SCH (21:00)
[2019-08-10] MEDS ORDERED: amLODIPine 10 MG TABLET PO SCH (05:00)
[2019-08-10] MEDS ORDERED: PANTOPRAZOLE 40 MG TABLET PO SCH (07:30)
[2019-08-10] MEDS ORDERED: predniSONE 20 MG TABLET PO SCH (08:00)
[2019-08-11] MEDS ORDERED: amLODIPine 10 MG TABLET PO SCH (07:30)
== END 2019-08-09 12:12 | DRG 189 ==
LOC: ED 11:30 → ICU 20:15
PROVIDERS: ADMIT Internal Medicine; ATTEND Internal Medicine

== ENCOUNTER 2019-08-17 09:40 | Inpatient (IN) ==
[2019-08-17] MEDS ORDERED: IPRATROPIUM/ALBUTEROL 3 ML AMPUL.NEB NEB ONE ×2 (09:53→14:35)
--- NOTE | 2019-08-17 10:41 | XRay Report ---
CLINICAL INFORMATION: Chest Pain COMPARISON: 08/03/2019 FINDINGS: Double-lumen central catheter is stable satisfactory position with the tip overlying the SVC right atrial junction. The heart is mildly enlarged but unchanged. Mediastinum is unremarkable. COPD with diffuse interstitial fibrosis seen - as before. Superimposed right basilar atelectasis has almost cleared. Mild atelectasis left base. No effusion IMPRESSION: Mild cardiomegaly, COPD and interstitial fibrosis. No acute disease Interpreted and Authenticated by: Joe Centeno 08/17/19
[2019-08-17 10:50] LABS: Basophils # (Auto) 0.04 K/mcL (0.00-0.30); Basophils % (Auto) 0.5 % (0.0-2.0); Eosinophils # (Auto) 0 K/mcL (0.00-0.70); Eosinophils % (Auto) 0 % (0.0-7.0); Granulocytes % (Auto) 74.3 % (38.0-78.0); Hematocrit 34.3 % (34.1-44.9); Hemoglobin 10.6 g/dL (11.2-15.7); Lymphocytes # (Auto) 1.22 K/mcL (1.50-4.80); Lymphocytes % (Auto) 13.7 % (15.5-49.0); Mean Corpuscular HGB Conc 30.9 g/dL (31.0-36.0); Mean Platelet Volume 10.2 fL (7.4-10.4); Monocytes # (Auto) 1.02 K/mcL (0.10-0.90); Monocytes % (Auto) 11.5 % (1.0-12.0); Platelet Count 260 K/mcL (140-440); RBC 3.43 M/mcL (3.59-5.38); WBC 8.9 K/mcL (4.50-11.00)
[2019-08-17 11:10] LABS: Creatine Kinase MB 2.4 ng/ml (0-2.9); Myoglobin 112 ng/ml (25-58)
[2019-08-17 11:12] LABS: ALT/SGPT 59 U/l (0-40); AST/SGOT 48 U/l (0-37); Albumin 3.9 gm/dL (3.2-5.2); Albumin/Globulin Ratio 1.8 (1.0-2.3); Alkaline Phosphatase 146 U/L (39-117); Bilirubin,Total 0.2 mg/dL (0.0-1.0); Calcium 8.3 mg/dl (8.6-10.4); Carbon Dioxide 26 mmol/L (22-30); Creatine Kinase 22 IU/L (24-170); Globulin 2.2 gm/dL (2.2-3.7); Glucose 96 mg/dL (70-105)
[2019-08-17 11:15] LABS: Blood Urea Nitrogen 61 mg/dl (8-23); Chloride 88 mmol/L (96-108); Glomerular Filtration Rate 8
[2019-08-17] MEDS ORDERED: methylPREDNISolone SOD SUCC 125 MG/2 ML VIAL IV ONE (11:38)
[2019-08-17] MEDS ORDERED: HYDROmorphone 2 MG/ML VIAL IV ONE ×2 (11:42→13:37)
--- NOTE | 2019-08-17 11:42 | Emergency Department Note ---
SOB HPI - General Chief Complaint: Shortness of Breath/Dyspnea Stated Complaint: SOB Time Seen by Provider: 08/17/19 09:53 Source: patient Mode of arrival: EMS Limitations: no limitations - History of Present Illness 63-year-old female presents with shortness of breath and left-sided rib pain. Is pointing to left lower lateral ribs. She was at dialysis and she took a break to go out and smoke, was off her oxygen, and started having significant shortness of breath and his pain in the left side of her rib area. She denies chest pain. Dialysis reports she was having chest pain there so they called and had her transported here for chest pain and dyspnea. This has happened several times in the past at dialysis when she wanted to go outside and smoke. She is normally on 3 L of oxygen at home. Denies fever or chills. No nausea, vomiting, or diarrhea. She does have some generalized weakness which is little bit worse than usual. She only proceeded with about 30 to 45 minutes of dialysis when she is normally there for 4 hours or so. She is a Dr. Tafoya pt. She does state her cough has been a little bit worse than normal lately. - Related Data Home Medications Medication Instructions Recorded Confirmed Citalopram Hydrobromide [Celexa] 20 mg PO DAILY 07/11/15 08/17/19 Aspirin [Aspirin EC] 81 mg PO DAILY 07/18/18 08/17/19 Clopidogrel Bisulfate [Plavix] 75 mg PO DAILY 07/18/18 08/17/19 amLODIPine [Norvasc] 10 mg PO MOWEFR@0500 09/20/18 08/17/19 Anoro Ellipta 1 puff INH DAILY 04/18/19 08/17/19 [Umeclidinium-Vilanterol 62.5-25 Mcg/Inh] Calcium Acetate [Phoslo] 1,334 mg PO TIDAC 04/18/19 08/17/19 Ipratropium/Albuterol [Duoneb] 3 ml NEB Q6H 04/18/19 08/17/19 L.acidoph,Paracasei, B.lactis 1 cap PO BIDCC 04/18/19 08/17/19 [Probiotic] Lidocaine [Aspercreme Lidocaine] 1 patch TOPICAL DAILY 04/18/19 08/17/19 Melatonin [Melatin] 3 mg PO HS 04/18/19 08/17/19 Polyethylene Glycol 3350 [Miralax] 17 gm PO DAILY 04/18/19 08/17/19 Tiotropium [place] [Spiriva] 18 mcg INH DAILY 04/18/19 08/17/19 amLODIPine [Norvasc] 10 mg PO SUTUTHSA@0730 04/18/19 08/17/19 Ondansetron HCl [Zofran] 4 mg PO Q6HP PRN 04/19/19 08/17/19 Simethicone [Mylicon] 80 mg CHEWED DAILYP PRN 04/19/19 08/17/19 traZODone HCL [Desyrel] 50 mg PO HSP PRN 04/19/19 08/17/19 ALPRAZolam [Xanax] 0.5 mg PO Q8 PRN 08/04/19 08/17/19 Benzonatate [Tessalon Perle] 200 mg PO TID PRN 08/04/19 08/17/19 Bisacodyl [Dulcolax] 10 mg PO DAILY PRN 08/04/19 08/17/19 Bisacodyl [Dulcolax] 10 mg [place] DAILY PRN 08/04/19 08/17/19 Dextran 70/Hypromellose 1 each OU TID 08/04/19 08/17/19 [Artificial Tears] Insulin Aspart [Novolog] See Protocol SQ ACHS 08/04/19 08/17/19 Magnesium Hydroxide [Milk of 30 ml PO DAILYP PRN 08/04/19 08/17/19 Magnesia] Metoprolol Tartrate [Lopressor] 25 mg PO BID 08/04/19 08/17/19 Nitroglycerin [Nitrostat] 0.4 mg SL Q5M PRN 08/04/19 08/17/19 Pantoprazole Sodium [Protonix] 20 mg PO DAILY 08/04/19 08/17/19 Vitamin D3 2,000 unit PO DAILY 08/04/19 08/17/19 predniSONE [Prednisone] 20 mg PO QAM 08/04/19 08/17/19 Previous Rx's Medication Instructions Recorded Lactulose [Cephulac] 30 gm PO DAILYP PRN #20 oral.ar 04/21/19 Sennosides [Senna] 8.6 mg PO BID #60 tab 04/21/19 HYDROcodone/APAP 5/325MG [[place] 2 tab PO Q6 PRN #20 tab 08/07/19 5-325Mg] Insulin Glargine,Hum.rec.anlog 8 unit SQ QAM #3 ml 08/07/19 [Lantus Solostar] Lisinopril [Zestril] 20 mg PO BID #60 tab 08/07/19 cloNIDine TTS 3 [Catapres Tts 3] 1 patch TD WEEKLY #5 patch 08/07/19 predniSONE [Prednisone] 20 mg PO [facility] #30 tab 08/07/19 Allergies Allergy/AdvReac Type Severity Reaction Status Date / Time adhesive tape Allergy Mild Rash Verified 08/03/19 11:33 iodine Allergy Mild Rash Verified 08/03/19 11:33 Sulfa (Sulfonamide Allergy Mild Rash Verified 08/03/19 11:33 Antibiotics) sucralfate [From Carafate] Allergy Unknown Unknown Verified 08/03/19 11:33 Review of Systems All systems ED: reviewed and negative except as stated. Past Medical History - Past Medical History [facility] Narrative: Medical History (Last Updated 12/15/18 @ 10:55 by Bhargav Gan DO) DNR (do not resuscitate) (Chronic) Chronic anticoagulation (Chronic) CAD (coronary artery disease) (Chronic) History of cervical cancer (Chronic) Chest pain (Acute) Congestive heart failure (Acute) Shortness of Breath (Acute) Acute hypercapnic respiratory failure (Acute) ESRD (end stage renal disease) on dialysis (Chronic) Fluid overload (Acute) Anemia of chronic disease (Chronic) HTN (hypertension) (Chronic) Past Surgical History (Last Updated 11/05/18 @ 12:09 by Bhargav Gan DO) S/P coronary artery stent placement (Acute) S/P hysterectomy with oophorectomy (Acute) Medical history: Reports: arthritis, CAD (coronary artery disease), CHF, chronic narcotics, COPD, DM, GI bleed, hypertension, osteoporosis, renal disease (On dialysis) Psychiatric history: Reports: anxiety, depression, PTSD - Social History smoking status: Current every day smoker Alcohol use: Reports: None Drug use: Reports: none, marijuana (occas) Physical Exam Limitations: no limitations General appearance: alert, other (mild labored breathing) Head: atraumatic, normocephalic, normal inspection Eye: Present: normal appearance. Absent: conjunctival injection ENT: Present: mucous membranes moist Neck: Present: normal inspection Chest: Present: symmetric chest wall rise, tenderness (Left lower lateral rib pain with palpation. No crepitus or deformity.) Respiratory: Present: respiratory distress (Mild with labored breathing on arrival and audible wheezes), rales/crackles (Crackles in the bases bilaterally) Cardiovascular: Present: regular rate, normal rhythm, normal heart sounds Extremities: Present: pedal edema (2+ bilaterally). Absent: tenderness Neurological: Present: alert, oriented X3 Psychiatric: Present: normal affect, normal mood Skin: Present: warm, dry, intact Course Course Narrative: I did speak to Dr. Tafoya regarding this patient. Apparently these last several times she is complained to them of chest pain which is why they sent her to the ER. This does appear to be noncardiac. Her troponin is elevated however it is lower than normal. EKG does not show any acute findings. We did give her a breathing treatment and put her on oxygen and she is improved. However she is still slightly tachypneic and she is resting with O2 saturations about 82% on her usual [address] Tafoya felt that if she was stable she can go back and finish dialysis if they can get her in. However he seems to still be hypoxic despite breathing treatments and Solu-Medrol, and although is improved, is still not well enough to be discharged at this point. At 1200 we have a call into warehouse director to see if a bed is available for possible admission for COPD exacerbation, hypoxia, and she will need dialysis. Vital Signs Temperature 97.9 F 08/17/19 09:42 Pulse Rate 67 08/17/19 09:42 Respiratory Rate 20 08/17/19 09:42 Blood Pressure 145/95 08/17/19 09:42 Pulse Oximetry (%) 87 L 08/17/19 09:42 Temperature 99.1 F H 08/17/19 17:08 Pulse Rate 78 08/17/19 17:18 Respiratory Rate 15 08/17/19 17:18 Blood Pressure 139/77 08/17/19 17:08 Pulse Oximetry (%) 95 08/17/19 17:18 Shortness of Breath/Dyspnea - Lab Data Lab results reviewed: Yes I reviewed the patient's lab results. Result diagrams: 08/17/19 09:52 08/17/19 09:52 Lab Results 08/17/19 08/17/19 08/17/19 Range/Units 09:52 09:52 09:52 WBC 8.9 (4.50-11.00) K/mcL RBC 3.43 L (3.59-5.38) M/mcL Hgb 10.6 L (11.2-15.7) g/dL Hct 34.3 (34.1-44.9) % MCV 100.0 (80.0-100.0) fL MCH 30.9 (26.0-34.0) pg MCHC 30.9 L (31.0-36.0) g/dL RDW 15.0 H (11.5-14.5) % Plt Count 260 (140-440) K/mcL MPV 10.2 (7.4-10.4) fL Gran % 74.3 (38.0-78.0) % Lymph % (Auto) 13.7 L (15.5-49.0) % [place] % (Auto) 11.5 (1.0-12.0) % Eos % (Auto) 0 (0.0-7.0) % Baso % (Auto) 0.5 (0.0-2.0) % Gran # 6.60 (1.80-8.00) K/mcL Lymph # (Auto) 1.22 L (1.50-4.80) K/mcL [place] # (Auto) 1.02 H (0.10-0.90) K/mcL Eos # (Auto) 0 (0.00-0.70) K/mcL Baso # (Auto) 0.04 (0.00-0.30) K/mcL Sodium 131 L (133-145) mmol/L Potassium 4.9 (3.3-5.1) mmol/L Chloride 88 L (96-108) mmol/L Carbon Dioxide 26 (22-30) mmol/L Anion Gap 17.0 H (8-16) BUN 61 H (8-23) mg/dl Creatinine 5.4 H* (0.6-1.1) mg/dl GFR Calculation 8 Glucose 96 (70-105) mg/dL Calcium 8.3 L (8.6-10.4) mg/dl Total Bilirubin 0.2 (0.0-1.0) mg/dL AST 48 H (0-37) U/l ALT 59 H (0-40) U/l Alkaline Phosphatase 146 H (39-117) U/L Total Creatine Kinase 22 L (24-170) IU/L CK-MB (CK-2) 2.4 (0-2.9) ng/ml Myoglobin 112 H (25-58) ng/ml Troponin T 0.20 H* (0-0.03) ng/ml Total Protein 6.1 (5.9-8.4) gm/dL Albumin 3.9 (3.2-5.2) gm/dL Globulin 2.2 (2.2-3.7) gm/dL Albumin/Globulin Ratio 1.8 (1.0-2.3) 08/17/19 Range/Units 14:20 WBC (4.50-11.00) K/mcL RBC (3.59-5.38) M/mcL Hgb (11.2-15.7) g/dL Hct (34.1-44.9) % MCV (80.0-100.0) fL MCH (26.0-34.0) pg MCHC (31.0-36.0) g/dL RDW (11.5-14.5) % Plt Count (140-440) K/mcL MPV (7.4-10.4) fL Gran % (38.0-78.0) % Lymph % (Auto) (15.5-49.0) % Emmet % (Auto) (1.0-12.0) % Eos % (Auto) (0.0-7.0) % Baso % (Auto) (0.0-2.0) % Gran # (1.80-8.00) K/mcL Lymph # (Auto) (1.50-4.80) K/mcL Emmet # (Auto) (0.10-0.90) K/mcL Eos # (Auto) (0.00-0.70) K/mcL Baso # (Auto) (0.00-0.30) K/mcL Sodium (133-145) mmol/L Potassium (3.3-5.1) mmol/L Chloride (96-108) mmol/L Carbon Dioxide (22-30) mmol/L Anion Gap (8-16) BUN (8-23) mg/dl Creatinine (0.6-1.1) mg/dl GFR Calculation Glucose (70-105) mg/dL Calcium (8.6-10.4) mg/dl Total Bilirubin (0.0-1.0) mg/dL AST (0-37) U/l ALT (0-40) U/l Alkaline Phosphatase (39-117) U/L Total Creatine Kinase (24-170) IU/L CK-MB (CK-2) (0-2.9) ng/ml Myoglobin (25-58) ng/ml Troponin T 0.19 H* (0-0.03) ng/ml Total Protein (5.9-8.4) gm/dL Albumin (3.2-5.2) gm/dL Globulin (2.2-3.7) gm/dL Albumin/Globulin Ratio (1.0-2.3) - Radiology Data Radiology results reviewed: Yes I reviewed the patient's radiology results. Disposition Pt seen by GUARD MANAGER/PA only: Yes Clinical Impression: Non-cardiac chest pain, Dyspnea, COPD exacerbation, Hypoxia, End stage chronic kidney disease Disposition: Xfer As Inpt ([facility]) Condition: Good
--- NOTE | 2019-08-17 14:39 | Cat Scan Report ---
CLINICAL INFORMATION: Shortness of breath COMPARISON: 02/21/2015, 04/19/2019 and 08/03/[address] TECHNIQUE: 0.625 mm axial slices were obtained from the lung apices through the bases without intravenous contrast. 2.5 mm Sagittal, coronal and axial reformatted images were processed and reviewed at bone, lung and soft tissue windows. 7 mm axial MIP images were also reconstructed to optimize pulmonary nodule detection.The exam was performed using radiation dose optimization techniques including, but not limited to, automated exposure control, adjustment of the mA and/or kV according to patient size and use of iterative reconstruction technique. FINDINGS: Pulmonary parenchymal windows show severe emphysematous featuring chronic bronchitis with elevated lung volumes and wall thickening/dilatation of the bronchi with multiple bullae and interstitial fibrotic change resulting in near complete replacement of the upper lobes. Since the most recent chest CT two weeks prior, there has been marked improvement in right middle and posterior lower lobe infiltrates with only minimal residual. A 2.5 cm stellate mass, on image 89, in the posterior basilar segment left lower lobe is unchanged, a 8 mm nodule in the posterior basilar segment of the right lower lobe, image 85 was not seen on the previous study but may have been present obscured by infiltrate. An 8 mm nodule in the lingula on image 62 has been stable for over one year. A 6.5 mm nodule in the right middle lobe adjacent to minor fissure on image 62 is unchanged since February 2019. A 2.6 x 0.5 cm elongated nodule or scar in the posterior segment right upper lobe on image 47 has been stable for over one year 07/18/2018. A 15 mm pleural-based nodule in the posterior segment left upper lobe image 58 has decreased from the June 2018 CT. at that time, it was 3.9 cm. There are no effusions. Mediastinal windows show the heart is mildly enlarged with heavy calcific plaque in the coronary arteries. There is mild enlargement of the pulmonary arteries suggesting pulmonary hypertension related to COPD. The thoracic aorta is normal diameter. Multiple mildly enlarged lower mediastinal lymph nodes demonstrate long-term stability and almost certainly represent benign reactive adenopathy. The esophagus is grossly normal. The thyroid is unremarkable. Bones and soft tissue chest wall are normal images. Abdomen images show bilateral renal atrophy compatible with known end-stage renal disease. IMPRESSION: 1. Severe emphysema. Right middle and bilateral posterior lower lobe infiltrates have improved considerably since the most recent CT two weeks prior with only mild residual. Consider infection or aspiration. 2. Scattered pulmonary nodules and masses have maintained stability for over one year are likely inflammatory. 3. Mild adenopathy lower mediastinum also stable and almost certainly benign reactive lymph nodes. 4. Mild enlargement central pulmonary arteries compatible pulmonary hypertension related to COPD Interpreted and Authenticated by: Joe Centeno 08/17/19
--- NOTE | 2019-08-17 16:04 | Emergency Department Note ---
ED Note Addendum Note Addendum: I reviewed this case with the midlevel and I examined the patient and agree for admission. I did speak with Dr. Mendez the hospitalist about admitting her and he accepted her.
[2019-08-17] MEDS ORDERED: LORazepam 2 MG/ML VIAL IV ONE (16:38)
[2019-08-17] MEDS ORDERED: ALPRAZolam 0.25 MG TABLET PO PRN (17:09)
[2019-08-17] MEDS ORDERED: ACETAMINOPHEN 650 MG/65 ML BOTTLE IV PRN (17:09)
[2019-08-17] MEDS ORDERED: ACETAMINOPHEN 325 MG TABLET PO PRN (17:09)
[2019-08-17] MEDS ORDERED: BISACODYL 10 MG SUPP.RECT PR PRN (17:09)
[2019-08-17] MEDS ORDERED: LACTULOSE 20 GM/30 ML ORAL.SOL PO PRN (17:09)
[2019-08-17] MEDS ORDERED: ONDANSETRON 4 MG ODT TABLET SL PRN (17:09)
[2019-08-17] MEDS ORDERED: POLYETHYLENE GLYCOL 3350 17 GM PACKET PO PRN (17:09)
[2019-08-17] MEDS ORDERED: hydrALAZINE 20 MG/ML VIAL IV PRN (17:09)
[2019-08-17] MEDS ORDERED: cloNIDine TTS 3 1 PATCH PATCH TD SCH ×2 (17:09→18:00)
[2019-08-17] MEDS ORDERED: HYDROcodone/APAP 5/325MG TABLET PO PRN (17:09)
[2019-08-17] MEDS ORDERED: BENZONATATE 100 MG CAPSULE PO PRN (17:09)
[2019-08-17] MEDS ORDERED: ACIDOPH PARACASEI B LACTIS PO SCH (17:30)
[2019-08-17] MEDS ORDERED: [UNRECOGNIZED DRUG - OTHER] PO SCH (17:30)
--- NOTE | 2019-08-17 18:22 | Internal Med History&Physical ---
Medical - H&P: HPI Patient information: Note initiated : 08/17/19 at 6:19 pm Service Date, if different from initiated Date: [] Patient: Cherelle Mcpherson 63 y/o F admitted on 08/17/19 for Shortness of breath. Chief Complaint: [] Chief complaint: Shortness of breath chest discomfort History of present illness: Ms. Mcpherson is a 63 year old F with a known history of ESRD on HD/poorly controlled hypertension/CHF/CAD status post stenting was brought into the ER after experiencing chest pain during dialysis. Patient work-up in the ER was essentially unremarkable including CT chest however ABG revealed 7.25/60 4/32 on 4 L oxygen. Patient was markedly short of breath. Troponins came back at baseline. Patient was probably started on noninvasive ventilation in light of hypercapnic hypoxic respiratory failure. Patient was started on steroids/bronchodilators without adequate relief. Subsequently hospitalist service was consulted. At the time evaluation patient is fatigued lethargic unable to provide any history. Most of the history is obtained from review of medical records. Patient was recently hospitalized from 08/03 and discharged 08/09 with bilateral pneumonia/hypertensive urgency with acute hypoxic story failure. Patient completed 10 days antibiotics and was undergoing dialysis when she started experience chest pain. She continues to smoke. No history could be obtained from patient. Most of the history was obtained via medical records. No review of systems performed. Patient however denies active chest pain at this time. Review of systems 10 point review system was performed and is negative except was cussed above Medical - H&P: PMH Medical history: Chest pain (Acute) Congestive heart failure (Acute) Shortness of Breath (Acute) Acute hypercapnic respiratory failure (Acute) ESRD (end stage renal disease) on dialysis (Chronic) Fluid overload (Acute) Anemia of chronic disease (Chronic) HTN (hypertension) (Chronic) Past Surgical History S/P coronary artery stent placement (Acute) S/P hysterectomy with oophorectomy (Acute) Includes left fibula fracture repair. cholecystectomy, total abdominal hysterectomy with bilateral salpingo-oophorectomy, tonsillectomy, appendectomy, hemorrhoidectomy, cataracts, esophageal dilation. Family history: Mother had CAD and CHF. Father had TB of a motor vehicle accident 49. Social history: -Patient continues to smoke 1/2ppd -Resides at a group home facility -Multiple hospitalizations over the past 12 months Medical - H&P: Meds Home Medications Medication Instructions Recorded Confirmed Type Citalopram Hydrobromide [Celexa] 20 mg PO DAILY 07/11/15 08/17/19 History Aspirin [Aspirin EC] 81 mg PO DAILY 07/18/18 08/17/19 History Clopidogrel Bisulfate [Plavix] 75 mg PO DAILY 07/18/18 08/17/19 History amLODIPine [Norvasc] 10 mg PO MOWEFR@0500 09/20/18 08/17/19 History Anoro Ellipta 1 puff INH DAILY 04/18/19 08/17/19 History [Umeclidinium-Vilanterol 62.5-25 Mcg/Inh] Calcium Acetate [Phoslo] 1,334 mg PO TIDAC 04/18/19 08/17/19 History Ipratropium/Albuterol [Duoneb] 3 ml NEB Q6H 04/18/19 08/17/19 History L.acidoph,Paracasei, B.lactis 1 cap PO BIDCC 04/18/19 08/17/19 History [Probiotic] Lidocaine [Aspercreme Lidocaine] 1 patch TOPICAL DAILY 04/18/19 08/17/19 History Melatonin [Melatin] 3 mg PO HS 04/18/19 08/17/19 History Polyethylene Glycol 3350 [Miralax] 17 gm PO DAILY 04/18/19 08/17/19 History Tiotropium [place] [Spiriva] 18 mcg INH DAILY 04/18/19 08/17/19 History amLODIPine [Norvasc] 10 mg PO SUTUTHSA@0730 04/18/19 08/17/19 History Ondansetron HCl [Zofran] 4 mg PO Q6HP PRN 04/19/19 08/17/19 History Simethicone [Mylicon] 80 mg CHEWED DAILYP PRN 04/19/19 08/17/19 History traZODone HCL [Desyrel] 50 mg PO HSP PRN 04/19/19 08/17/19 History Lactulose [Cephulac] 30 gm PO DAILYP PRN #20 oral.ar 04/21/19 08/17/19 Rx Sennosides [Senna] 8.6 mg PO BID #60 tab 04/21/19 08/17/19 Rx ALPRAZolam [Xanax] 0.5 mg PO Q8 PRN 08/04/19 08/17/19 History Benzonatate [Tessalon Perle] 200 mg PO TID PRN 08/04/19 08/17/19 History Bisacodyl [Dulcolax] 10 mg PO DAILY PRN 08/04/19 08/17/19 History Bisacodyl [Dulcolax] 10 mg [place] DAILY PRN 08/04/19 08/17/19 History Dextran 70/Hypromellose 1 each OU TID 08/04/19 08/17/19 History [Artificial Tears] Insulin Aspart [Novolog] See Protocol SQ ACHS 08/04/19 08/17/19 History Magnesium Hydroxide [Milk of 30 ml PO DAILYP PRN 08/04/19 08/17/19 History Magnesia] Metoprolol Tartrate [Lopressor] 25 mg PO BID 08/04/19 08/17/19 History Nitroglycerin [Nitrostat] 0.4 mg SL Q5M PRN 08/04/19 08/17/19 History Pantoprazole Sodium [Protonix] 20 mg PO DAILY 08/04/19 08/17/19 History Vitamin D3 2,000 unit PO DAILY 08/04/19 08/17/19 History predniSONE [Prednisone] 20 mg PO QAM 08/04/19 08/17/19 History HYDROcodone/APAP 5/325MG [[place] 2 tab PO Q6 PRN #20 tab 08/07/19 08/17/19 Rx 5-325Mg] Insulin Glargine,Hum.rec.anlog 8 unit SQ QAM #3 ml 08/07/19 08/17/19 Rx [Lantus Solostar] Lisinopril [Zestril] 20 mg PO BID #60 tab 08/07/19 08/17/19 Rx cloNIDine TTS 3 [Catapres Tts 3] 1 patch TD WEEKLY #5 patch 08/07/19 08/17/19 Rx predniSONE [Prednisone] 20 mg PO QAMCC #30 tab 08/07/19 08/17/19 Rx Allergies Allergy/AdvReac Type Severity Reaction Status Date / Time adhesive tape Allergy Mild Rash Verified 08/03/19 11:33 iodine Allergy Mild Rash Verified 08/03/19 11:33 Sulfa (Sulfonamide Allergy Mild Rash Verified 08/03/19 11:33 Antibiotics) sucralfate [From Carafate] Allergy Unknown Unknown Verified 08/03/19 11:33 Medical - H&P: Exam - Constitutional Vitals: Temp Pulse Resp BP Pulse Ox 97.9 F 78 15 120/81 95 08/17/19 09:42 08/17/19 17:18 08/17/19 17:18 08/17/19 16:30 08/17/19 17:18 General appearance: moderate distress Exam: Short of breath and labored on BiPAP head normocephalic Oral cavity dry No ear nose discharge Eye movement symmetrical Neck lymphadenopathy S1-S2 regular rhythm ESM grade 1 Diminished breath sounds bases Abdomen soft nontender Lower extremity no sinus clubbing no joint swelling Skin no suspicious lesion Psych lethargic Neuro moving all 4 extremities Medical - H&P: Reslt - Labs CBC & Chem 7: 08/17/19 09:52 08/17/19 09:52 Labs: Short CBC 08/17/19 Range/Units 09:52 WBC 8.9 (4.50-11.00) K/mcL Hgb 10.6 L (11.2-15.7) g/dL Hct 34.3 (34.1-44.9) % Plt Count 260 (140-440) K/mcL BMP 08/17/19 09:52 Sodium 131 L Potassium 4.9 Chloride 88 L Carbon Dioxide 26 BUN 61 H Creatinine 5.4 H* Glucose 96 Calcium 8.3 L Cardiac Enzymes 08/17/19 08/17/19 08/17/19 Range/Units 09:52 09:52 14:20 Total Creatine Kinase 22 L (24-170) IU/L CK-MB (CK-2) 2.4 (0-2.9) ng/ml Troponin T 0.20 H* 0.19 H* (0-0.03) ng/ml Liver Function 08/17/19 Range/Units 09:52 Total Bilirubin 0.2 (0.0-1.0) mg/dL AST 48 H (0-37) U/l ALT 59 H (0-40) U/l Alkaline Phosphatase 146 H (39-117) U/L Albumin 3.9 (3.2-5.2) gm/dL Medical - H&P: A/P (1) Respiratory failure with hypoxia and hypercapnia Current visit: No Status: Acute * Acute respiratory failure with hypoxia and hypercapnia-ABG 7.256/64/32 on 3 L oxygen. Started on noninvasive ventilation/bronchodilators/IV steroids. * COPD exacerbation-continue IV steroids bronchodilators. Patient completed 10 days antibiotics recently. No leukocytosis. * ESRD on HD, management per nephrology * Chronically elevated troponin, no change from previous admission. Continue home dose beta-zbigniew/aspirin/Plavix/YURIY inhibitor * History of hypertension currently normotensive, continue amlodipine/YURIY inhibitor/beta-zbigniew/clonidine * History of chronic anemia * DM type II continue basal prandial insulin * Full code * Prophylaxis heparin Plan * Inpatient ICU admit * Serial ABG/BiPAP weaning as tolerated * IV steroids/bronchodilators * Prior medical condition management home meds * Hemodialysis per nephrology * PT OT nutrition support * Discharge planning - Narrative A/P Narrative: Critical care time in excess of 35 minutes on management of hypoxic/hypercapnic respiratory failure/noninvasive mechanical ventilation management
[2019-08-17] MEDS: IPRATROPIUM/ALBUTEROL 3 ML AMPUL.NEB NEB SCH ×2 (19:45→23:33)
[2019-08-17] MEDS: BUDESONIDE 0.5 MG/2 ML AMPUL.NEB NEB SCH (19:45)
[2019-08-17] MEDS: POLYVINYL ALCOHOL OPHTH DROPS 15ML BOTTLE OU SCH (20:37)
[2019-08-17] MEDS ORDERED: SENNOSIDES/DOCUSATE SODIUM 1 TAB TABLET PO SCH (21:00)
[2019-08-17] MEDS: ALPRAZolam 0.25 MG TABLET PO PRN (22:18)
[2019-08-17] MEDS: 0.9 % SODIUM CHLORIDE 10 ML SYRINGE IV SCH (22:19)
[2019-08-17] MEDS: LACTOBACILLUS 1 CAPSULE PO SCH (22:26)
[2019-08-17] MEDS: CALCIUM ACETATE 667 MG CAPSULE PO SCH (22:27)
[2019-08-17] MEDS: METOPROLOL TARTRATE 25 MG TABLET PO SCH (23:35)
[2019-08-17] MEDS: methylPREDNISolone SOD SUCC 125 MG/2 ML VIAL IV SCH (23:35)
[2019-08-17] MEDS: LISINOPRIL 20 MG TABLET PO SCH (23:35)
[2019-08-17] MEDS: HEPARIN 5,000 UNIT/ML VIAL SQ SCH (23:36)
[2019-08-17] MEDS: SENNOSIDES 1 TABLET PO SCH (23:37)
[2019-08-17] MEDS: HYDROcodone/APAP 5/325MG TABLET PO PRN (23:37)
[2019-08-17] MEDS: DOCUSATE SODIUM 100 MG CAPSULE PO SCH (23:38)
[2019-08-18] MEDS: IPRATROPIUM/ALBUTEROL 3 ML AMPUL.NEB NEB SCH ×6 (02:58→22:33)
[2019-08-18] MEDS: 0.9 % SODIUM CHLORIDE 10 ML SYRINGE IV SCH ×3 (05:28→21:14)
[2019-08-18 06:30] LABS: Hematocrit 31.8 % (34.1-44.9); Mean Cell Volume 98.5 fL (80.0-100.0); Mean Corpuscular HGB Conc 31.4 g/dL (31.0-36.0); Mean Platelet Volume 9.9 fL (7.4-10.4); Platelet Count 208 K/mcL (140-440); RBC 3.23 M/mcL (3.59-5.38); Red Cell Distribution Width 14.7 % (11.5-14.5); WBC 2.7 K/mcL (4.50-11.00)
[2019-08-18 06:54] LABS: ALT/SGPT 43 U/l (0-40); AST/SGOT 27 U/l (0-37); Albumin 3.5 gm/dL (3.2-5.2); Albumin/Globulin Ratio 1.7 (1.0-2.3); Alkaline Phosphatase 122 U/L (39-117); Bilirubin,Direct < 0.2 mg/dL (0.0-0.3); Bilirubin,Total 0.2 mg/dL (0.0-1.0); Calcium 7.5 mg/dl (8.6-10.4); Carbon Dioxide 24 mmol/L (22-30); Globulin 2.1 gm/dL (2.2-3.7); Glucose 180 mg/dL (70-105); Lactate Dehydrogenase 177 U/L (94-250); Phosphorous 5.4 mg/dL (2.7-4.5); Triglycerides 129 mg/dl (<150); Uric Acid 3.5 mg/dL (2.5-8.0)
[2019-08-18 06:55] LABS: Blood Urea Nitrogen 30 mg/dl (8-23); Chloride 94 mmol/L (96-108); Glomerular Filtration Rate 16
[2019-08-18] MEDS: BUDESONIDE 0.5 MG/2 ML AMPUL.NEB NEB SCH ×3 (07:04→21:16)
--- NOTE | 2019-08-18 07:55 | Nephrology Progress Note ---
Subjective Patient information: Note initiated : 08/18/19 at 7:52 am Service Date, if different from initiated Date: [] Patient: Covert,Cherelle gonzalez 63 y/o F admitted on 08/17/19 for Shortness of breath. Chief Complaint: [] She feels better. Breathing is better but her o2 sats were still low. Objective - Vital Signs Vital signs: Vital Signs Temp Pulse Resp BP BP Pulse Ox 08/18/19 07:20 70 19 99 08/18/19 07:10 74 24 H 98 08/18/19 07:08 75 22 90 08/18/19 06:31 68 17 115/97 97 08/18/19 06:01 74 19 144/65 97 08/18/19 06:00 70 18 97 08/18/19 05:31 69 17 127/65 95 08/18/19 05:01 71 18 137/74 95 08/18/19 05:00 72 19 94 08/18/19 04:31 69 16 129/61 95 08/18/19 04:07 82 13 94 08/18/19 04:01 98.6 F 80 18 114/101 95 08/18/19 03:31 72 18 143/64 95 08/18/19 03:01 72 17 151/69 92 08/18/19 03:00 74 16 97 08/18/19 02:31 69 18 131/58 90 08/18/19 02:28 68 18 91 08/18/19 02:01 73 16 143/60 95 08/18/19 02:00 95 08/18/19 01:31 69 16 136/64 97 08/18/19 01:01 69 16 126/63 96 08/18/19 01:00 72 16 97 08/18/19 00:39 80 15 96 08/18/19 00:31 78 17 127/62 96 08/18/19 00:01 98.3 F 80 22 144/66 91 08/17/19 23:42 75 17 08/17/19 23:39 73 15 94 08/17/19 23:32 73 16 135/82 94 08/17/19 23:31 73 17 120/104 94 08/17/19 23:05 74 15 138/65 94 08/17/19 23:01 72 17 148/81 94 08/17/19 23:00 74 148/83 08/17/19 22:44 73 135/58 08/17/19 22:31 73 16 135/58 97 08/17/19 22:27 73 14 95 08/17/19 22:05 88 122/83 08/17/19 22:01 73 15 122/83 95 08/17/19 21:36 70 15 96 08/17/19 21:32 69 123/71 08/17/19 21:31 69 14 123/71 96 08/17/19 21:03 70 134/68 08/17/19 21:01 70 14 134/68 94 08/17/19 20:47 70 16 135/74 94 08/17/19 20:31 97.9 F 70 14 141/69 98 08/17/19 20:25 67 13 98 08/17/19 20:01 66 14 136/69 96 08/17/19 19:59 66 130/67 08/17/19 19:46 66 13 130/67 94 08/17/19 19:45 67 15 08/17/19 19:31 67 13 134/68 91 08/17/19 19:30 91 08/17/19 19:28 98.3 F 66 134/68 08/17/19 19:16 13 133/63 08/17/19 19:01 62 15 125/64 95 08/17/19 18:46 66 13 130/66 90 08/17/19 18:31 62 10 L 126/64 93 08/17/19 18:16 64 14 123/63 93 08/17/19 18:01 72 16 117/65 94 08/17/19 17:50 71 15 122/68 92 08/17/19 17:46 66 20 42/32 92 08/17/19 17:31 62 17 125/70 86 L 08/17/19 17:22 64 17 139/77 100 08/17/19 17:19 135/67 08/17/19 17:18 78 15 95 08/17/19 17:08 99.1 F H 14 139/77 96 08/17/19 17:00 68 15 135/67 91 08/17/19 16:53 62 15 132/69 90 08/17/19 16:46 68 18 117/74 93 08/17/19 16:30 67 16 120/81 94 08/17/19 16:16 85 19 130/72 94 08/17/19 16:07 75 23 H 85 L 08/17/19 16:01 83 29 H 131/77 72 L 08/17/19 15:46 62 17 132/68 77 L 08/17/19 15:31 64 17 125/74 89 L 08/17/19 15:17 70 14 130/70 87 L 08/17/19 15:02 68 15 134/79 91 08/17/19 14:46 75 20 144/94 91 08/17/19 14:32 69 18 120/53 86 L 08/17/19 14:21 22 128/77 08/17/19 14:17 69 15 132/82 87 L 08/17/19 14:12 75 19 155/84 85 L 08/17/19 13:32 59 L 19 149/83 93 08/17/19 13:17 74 19 144/75 93 08/17/19 13:02 67 17 134/78 94 08/17/19 12:46 67 19 143/78 94 08/17/19 12:32 64 19 130/66 92 08/17/19 12:16 61 19 160/83 94 08/17/19 12:01 63 19 148/81 87 L 08/17/19 11:54 82 L 08/17/19 11:47 63 23 H 139/93 84 L 08/17/19 11:32 67 20 159/98 92 08/17/19 11:16 65 16 159/85 92 08/17/19 11:02 70 21 148/88 92 08/17/19 11:00 66 17 92 08/17/19 10:47 68 18 155/79 91 08/17/19 10:32 66 18 163/90 93 08/17/19 10:17 70 23 H 162/86 97 08/17/19 10:02 65 20 157/82 93 08/17/19 09:48 69 20 145/95 88 L 08/17/19 09:42 97.9 F 67 20 145/95 87 L Intake and Output 08/17/19 08/18/19 08/18/19 21:59 05:59 13:59 Output Total 3600 Balance -3600 Output: Hemodialysis UF 3600 Other: Meal snack Percent of Meal Consumed 75% Weight 140 lb 14.4 oz Intake & Output: Intake & Output 08/17/19 08/18/19 08/18/19 21:59 05:59 13:59 Output Total 3600 Balance -3600 Weight 140 lb 14.4 oz Output: Hemodialysis UF 3600 Other: Meal snack Percent of Meal Consumed 75% - General Appearance General appearance: cachectic EENT: ATNC Neck: no JVD Cardiology: holosystolic murmur Gastrointestinal: normoactive bowel sounds Integumentary: no rash Neurologic: no focal deficit - Lab 08/18/19 05:00 08/18/19 05:00 Most recent lab results Calcium 7.5 mg/dl (8.6-10.4) L 08/18/19 05:00 Phosphorus 5.4 mg/dL (2.7-4.5) H 08/18/19 05:00 Magnesium 1.8 mg/dL (1.6-2.5) 08/18/19 05:00 Assessment and Plan (1) End stage chronic kidney disease Status: Acute Comment: Had HD yesterday. Nnumbers look ok. Volume seem better but sats are low. Will do an UF for 2 hours today and regular hd tomorrow.
[2019-08-18] MEDS: PANTOPRAZOLE 40 MG TABLET PO SCH (08:00)
[2019-08-18] MEDS: LACTOBACILLUS 1 CAPSULE PO SCH ×2 (08:00→18:05)
[2019-08-18] MEDS: CALCIUM ACETATE 667 MG CAPSULE PO SCH ×3 (08:00→18:05)
[2019-08-18] MEDS: HYDROcodone/APAP 5/325MG TABLET PO PRN ×2 (08:00→18:06)
[2019-08-18 08:07] LABS: Anisocytosis FEW (NONE SEEN); Lymphocytes % 7 % (15-49); Monocytes % (Manual) 2 % (1-12); Platelet Estimate NORMAL (NORMAL); RBC Morphology ABNORM (NORMAL); Segmented Neutrophils % 91 % (38-78)
[2019-08-18] MEDS: amLODIPine 10 MG TABLET PO SCH (08:17)
[2019-08-18] MEDS: METOPROLOL TARTRATE 25 MG TABLET PO SCH ×2 (08:17→21:14)
[2019-08-18] MEDS: LISINOPRIL 20 MG TABLET PO SCH ×2 (08:17→21:13)
[2019-08-18] MEDS: methylPREDNISolone SOD SUCC 125 MG/2 ML VIAL IV SCH ×2 (08:27→21:12)
[2019-08-18] MEDS: ASPIRIN 81 MG TAB.CHEW PO SCH (08:27)
[2019-08-18] MEDS: CLOPIDOGREL 75 MG TABLET PO SCH (08:27)
[2019-08-18] MEDS: TIOTROPIUM BROMIDE 18 MCG INHALANT INH SCH (08:28)
--- NOTE | 2019-08-18 08:38 | Consultation ---
DATE OF CONSULTATION: 08/17/2019 REASON FOR HOSPITALIZATION: End-stage renal disease. HISTORY OF PRESENT ILLNESS: The patient is a 63-year-old female with a history of end-stage renal disease on hemodialysis. She dialyzes Mondays, Wednesdays, and Fridays. She has had recurrent chest discomfort. She has had a history of coronary artery disease with status post stent placement in the past. She is somewhat noncompliant with the volume, and she continues to smoke. Today when she was at dialysis, she came in with chest pain to the dialysis unit. I had attempted to take more fluid off and see if the chest pain would improve. She had an hour of dialysis with about 2 liters of fluid removal, but the chest discomfort did not improve. She had also received nitro and Tylenol by then. For that reason, she was sent to the emergency room. PAST MEDICAL HISTORY: 1. Chronic congestive heart failure. 2. History of end-stage renal disease on hemodialysis. 3. History of multiple hospitalizations with fluid overload. 4. History of coronary artery disease status post stent placement. 5. Hypertension. PAST SURGICAL HISTORY: 1. History of coronary artery stent placement. 2. History of hysterectomy with oophorectomy. 3. Left fibula fracture. 4. Cholecystectomy. 5. Total abdominal hysterectomy. FAMILY HISTORY: Mother had CAD and CHF. Father had TB and in motor vehicle accident at age of 47. SOCIAL HISTORY: The patient continues to smoke one half pack per day. Resides at a residential facility. Multiple hospitalizations over the last 12 months. MEDICATIONS ON ADMISSION: 1. Citalopram 20 mg daily. 2. Aspirin 81 mg daily. 3. Plavix 75 mg daily. 4. Amlodipine 10 mg daily. 5. PhosLo 1334 mg p.o. three times daily with meals. 6. DuoNeb. 7. Lidocaine one patch daily. 8. Melatonin 3 mg at night. 9. MiraLax 17 grams once daily. 10. Spiriva 18 mcg inhalation. 11. Amlodipine 10 mg daily. 12. Zofran p.r.n. 13. Simethicone once daily. 14. Trazodone 50 mg at night. 15. Lactulose 30 mg as needed. 16. Xanax 0.5 mg q.8. 17. Insulin as needed. 18. Magnesium hydroxide as needed. 19. Metoprolol 25 mg twice daily. 20. Protonix 20 mg daily. 21. Vitamin D3 2000 units daily. 22. Prednisone 20 mg in the morning. 23. Lisinopril 20 mg twice daily. 24. Clonidine TTS patch one q. weekly. ALLERGIES: 1. TAPE. 2. IODINE. 3. SULFA ANTIBIOTICS. 4. CARAFATE. PHYSICAL EXAMINATION: GENERAL: The patient is alert, oriented x3, not in any distress. VITAL SIGNS: Blood pressures have been 120-130 systolic with a diastolic in the 80s. Pulse rates have been in the 70s, temperature 97.9 with a pulse oximetry of 95%. HEENT: NC/AT. Pupils are reactive. External ear and tympanic membranes appear normal. Oral cavity appears normal. NECK: Supple. No jugular venous distention. No lymphadenopathy. No thyromegaly. LUNGS: Decreased air entry bilaterally. Rales and rhonchi heard in both bases. CARDIAC: S1, S2 heard. No S3, S4. She has a 3/6 systolic murmur. ABDOMEN: Soft, nontender, no organomegaly. Positive bowel sounds. EXTREMITIES: Did not show any evidence of edema. LABORATORY DATA: White count 8.9 with hemoglobin of 10.6 and a platelet count of 260. Sodium 131, potassium 4.9, chloride of 88, CO2 26, BUN of 61 with a creatinine of 5.4. Phosphorus is pending. Calcium 8.3. ASSESSMENT AND PLAN: 1. End-stage renal disease on hemodialysis. She had an attempted dialysis of 1 of 2 liters of fluid, but she continued to have chest pain and shortness of breath. For that reason, she was sent to the emergency room. We will finish up her dialysis treatment and take out another 3 to 4 liters of fluid as tolerated. 2. Hypertension. Blood pressures are adequately controlled. 3. Chronic obstructive pulmonary disease. 4. Possible pneumonia. 5. Multiple other medical problems, management per Hospitalist. Masood Job ID: [id number] Doc ID: [id number] Nathan Tafoya MD
[2019-08-18] MEDS: CITALOPRAM 20 MG TABLET PO SCH (08:40)
[2019-08-18] MEDS: SENNOSIDES 1 TABLET PO SCH ×2 (08:40→21:13)
[2019-08-18] MEDS: BENZONATATE 100 MG CAPSULE PO PRN ×2 (08:40→18:06)
[2019-08-18] MEDS: DOCUSATE SODIUM 100 MG CAPSULE PO SCH ×2 (08:40→21:13)
[2019-08-18] MEDS: INSULIN GLARGINE, HUMAN 1 UNIT/0.01 ML SQ SCH (08:41)
[2019-08-18] MEDS: POLYETHYLENE GLYCOL 3350 17 GM PACKET PO SCH (08:41)
[2019-08-18] MEDS: MULTIVIT,THER IRON,CA,FA & MIN 1 TABLET PO SCH (08:41)
[2019-08-18] MEDS: POLYVINYL ALCOHOL OPHTH DROPS 15ML BOTTLE OU SCH ×3 (08:41→21:12)
[2019-08-18] MEDS: MUPIROCIN OINT 2% 22GM NARES SCH ×2 (08:41→21:12)
[2019-08-18] MEDS: HEPARIN 5,000 UNIT/ML VIAL SQ SCH ×2 (08:41→21:13)
--- NOTE | 2019-08-18 11:27 | Internal Med Progress Note ---
Medical - PN: Subj Patient information: Note initiated : 08/18/19 at 11:24 am Service Date, if different from initiated Date: [] Patient: Cherelle Mcpherson 63 y/o F admitted on 08/17/19 for Shortness of breath. Chief Complaint: [] Interval history: Ms. Mcpherson is a 63 year old F with a known history of ESRD on HD/poorly controlled hypertension/CHF/CAD status post stenting was brought into the ER after experiencing chest pain during dialysis. Patient work-up in the ER was essentially unremarkable including CT chest however ABG revealed 7.25/60 4/ on 4 L oxygen. Patient was markedly short of breath. Troponins came back at baseline. Patient was probably started on noninvasive ventilation in light of hypercapnic hypoxic respiratory failure. Patient was started on steroids/bronchodilators without adequate relief. Subsequently hospitalist service was consulted. At the time evaluation patient is fatigued lethargic unable to provide any history. Most of the history is obtained from review of medical records. Patient was recently hospitalized from 08/03 and discharged 08/09 with bilateral pneumonia/hypertensive urgency with acute hypoxic story failure. Patient completed 10 days antibiotics and was un dergoing dialysis when she started experience chest pain. She continues to smoke. No history could be obtained from patient. Most of the history was obtained via medical records. No review of systems performed. Patient however denies active chest pain at this time. 08/18-patient now alert and respond to commands. Complains of left-sided upper abdominal pain. Denies nausea diarrhea. Ongoing hemodialysis. No other concerns expressed with nursing staff. Off noninvasive ventilation since 7 AM. Currently on 4 L oxygen. Troponins at baseline, continue IV steroids/bronchodilators. Wean noninvasive ventilation as tolerated. - Constitutional Vitals: Vital Signs Temp Pulse Resp BP Pulse Ox 98.5 F 72 16 145/74 95 08/18/19 08:03 08/18/19 10:34 08/18/19 10:34 08/18/19 08:03 08/18/19 10:37 Period Temp Pulse Resp BP Sys/[place] Pulse Ox Last 24 Hr 97.9 F-99.1 F 59-88 10-29 42-160/32-104 72-100 Intake and Output 08/17/19 08/18/19 08/18/19 21:59 05:59 13:59 Intake Total 100 Output Total 3600 Balance -3600 100 Weight 140 lb 14.4 oz Intake & Output: Intake & Output 08/17/19 08/18/19 08/18/19 21:59 05:59 13:59 Intake Total 100 Output Total 3600 Balance -3600 100 Weight 140 lb 14.4 oz Intake: Oral 100 Output: Hemodialysis UF 3600 Other: Meal snack Breakfast Percent of Meal Consumed 75% 50% Feeding Ability Independent General appearance: no acute distress Exam: Fatigue and respond to commands Nonlabored breathing No telemetry events No anxiety No lymphedema Medical - PN: Obj Da - Labs CBC & Chem 7: 08/18/19 05:00 08/18/19 05:00 Labs: Abnormal Lab Results 08/18/19 08/18/19 08/17/19 05:00 05:00 14:20 WBC 2.7 L RBC 3.23 L Hgb 10.0 L Hct 31.8 L MCHC RDW 14.7 H Lymph % (Auto) Lymph # (Auto) [place] # (Auto) Seg Neutrophils % 91 H Lymphocytes % 7 L RBC Morphology Abnorm A Anisocytosis Few A Sodium Chloride 94 L Anion Gap BUN 30 H Creatinine 3.0 H Glucose 180 H Calcium 7.5 L Phosphorus 5.4 H GGT 158 H AST ALT 43 H Alkaline Phosphatase 122 H Total Creatine Kinase Myoglobin Troponin T 0.19 H* Total Protein 5.6 L Globulin 2.1 L 08/17/19 08/17/19 08/17/19 09:52 09:52 09:52 WBC RBC 3.43 L Hgb 10.6 L Hct MCHC 30.9 L RDW 15.0 H Lymph % (Auto) 13.7 L Lymph # (Auto) 1.22 L [place] # (Auto) 1.02 H Seg Neutrophils % Lymphocytes % RBC Morphology Anisocytosis Sodium 131 L Chloride 88 L Anion Gap 17.0 H BUN 61 H Creatinine 5.4 H* Glucose Calcium 8.3 L Phosphorus GGT AST 48 H ALT 59 H Alkaline Phosphatase 146 H Total Creatine Kinase 22 L Myoglobin 112 H Troponin T 0.20 H* Total Protein Globulin Meds: Medications Acetaminophen (Tylenol) 650 mg PO Q4-6HP PRN; Protocol PRN Reason: Per Pain Protocol/Fever > 101 Hydrocodone Bitart/Acetaminophen ([place] 5/325mg) 2 tab PO Q6HP PRN; Protocol PRN Reason: Pain Last Admin: 08/18/19 08:00 Dose: 2 tab Documented by: Albuterol/Ipratropium (Duoneb) 3 ml NEB Q4HRT [facility] Last Admin: 08/18/19 10:32 Dose: 3 ml Documented by: Alprazolam (Xanax) 0.5 mg PO Q8HP PRN PRN Reason: Anxiety Last Admin: 08/17/19 22:18 Dose: 0.5 mg Documented by: Amlodipine Besylate (Norvasc) 10 mg PO MOWEFR@0500 [facility] Amlodipine Besylate (Norvasc) 10 mg PO SUTUTHSA@0730 [facility] Last Admin: 08/18/19 08:17 Dose: Not Given Documented by: Artificial Tears (Artificial Tears Ophth Drops) 1 gtt OU TID [facility] Last Admin: 08/18/19 08:41 Dose: 1 gtt Documented by: Aspirin (Aspirin) 81 mg PO DAILY [facility] Last Admin: 08/18/19 08:27 Dose: Not Given Documented by: Benzonatate (Tessalon) 200 mg PO TIDP PRN PRN Reason: Cough Last Admin: 08/18/19 08:40 Dose: 200 mg Documented by: Bisacodyl (Dulcolax) 10 mg OR Q2-3DAYS PRN PRN Reason: Constipation Budesonide (Pulmicort) 0.5 mg NEB Q12 [facility] Last Admin: 08/18/19 07:04 Dose: 0.5 mg Documented by: Calcium Acetate (Phoslo) 1,334 mg PO TIDAC [facility] Last Admin: 08/18/19 08:00 Dose: 1,334 mg Documented by: Citalopram Hydrobromide (Celexa) 20 mg PO DAILY [facility] Last Admin: 08/18/19 08:40 Dose: 20 mg Documented by: Clonidine HCl (Catapres Tts 3) 1 patch TD We@1800 [facility] Last Admin: 08/17/19 20:36 Dose: 1 patch Documented by: Clopidogrel Bisulfate (Plavix) 75 mg PO DAILY [facility] Last Admin: 08/18/19 08:27 Dose: Not Given Documented by: Diagnostic Test (Pha) (Accu-Chek) 1 each FS ACHS [facility] Last Admin: 08/18/19 08:00 Dose: 1 each Documented by: Docusate Sodium (Colace) 100 mg PO BID [facility] Last Admin: 08/18/19 08:40 Dose: 100 mg Documented by: Heparin Sodium (Porcine) (Heparin) 5,000 unit SQ Q12 [facility] Last Admin: 08/18/19 08:41 Dose: 5,000 unit Documented by: Hydralazine HCl (Apresoline) 10 mg IV Q4-6HP PRN PRN Reason: Hypertension Acetaminophen (Ofirmev) 650 mg in 65 mls @ 130 mls/hr IV Q6HP PRN; Protocol PRN Reason: Per Pain Protocol/Fever > 101 Insulin Glargine (Lantus) 8 unit SQ DAILY [facility] Last Admin: 08/18/19 08:41 Dose: 8 units Documented by: Insulin Human Lispro (Humalog) 0 unit SQ ACHS [facility]; Protocol Iron Carb/Multivit/[place]/Folic Acid (Multivitamin W/Minerals) 1 tab PO DAILY [facility] Last Admin: 08/18/19 08:41 Dose: 1 tab Documented by: Lactobacillus Rhamnosus (Culturelle) 1 cap PO BIDCC [facility] Last Admin: 08/18/19 08:00 Dose: 1 cap Documented by: Lactulose (Cephulac) 30 gm PO DAILYP PRN PRN Reason: Constipation Lisinopril (Zestril) 20 mg PO BID [facility] Last Admin: 08/18/19 08:17 Dose: Not Given Documented by: Melatonin (Melatonin 3mg Tablet) 3 mg PO HSP PRN PRN Reason: Insomnia Methylprednisolone Sodium Succinate (Solu-Medrol) 60 mg IV Q12 [facility] Last Admin: 08/18/19 08:27 Dose: Not Given Documented by: Metoprolol Tartrate (Lopressor) 25 mg PO BID [facility] Last Admin: 08/18/19 08:17 Dose: Not Given Documented by: Mupirocin (Bactroban Oint 2%) 1 dose NARES BID [facility] Last Admin: 08/18/19 08:41 Dose: 1 dose Documented by: Nitroglycerin (Nitrostat) 0.4 mg SL Q5M PRN PRN Reason: Chest Pain Ondansetron HCl (Zofran Odt) 4 mg SL Q4-6HP PRN; Protocol PRN Reason: Nausea And Vomiting Ondansetron HCl (Zofran) 4 mg IV Q4-6HP PRN; Protocol PRN Reason: Nausea And Vomiting Pantoprazole Sodium (Protonix) 40 mg PO QAMAC [facility] Last Admin: 08/18/19 08:00 Dose: 40 mg Documented by: Polyethylene Glycol (Miralax) 17 gm PO DAILY [facility] Last Admin: 08/18/19 08:41 Dose: 17 gm Documented by: Senna (Senokot) 1 tab PO BID [facility] Last Admin: 08/18/19 08:40 Dose: 1 tab Documented by: Sodium Chloride (Saline Flush) 10 ml IV Q8 [facility] Last Admin: 08/18/19 05:28 Dose: 10 ml Documented by: Tiotropium [place] (Spiriva) 18 mcg INH DAILY [facility] Last Admin: 08/18/19 08:28 Dose: Not Given Documented by: Trazodone HCl (Desyrel) 50 mg PO HSP PRN PRN Reason: Sleep Medical - PN: A/P - Time Spent With Patient Total time spent is greater than 50% in coordination of care (as documented) at patient's floor/unit and/or counseling patient: 25 - 35 minutes (1) Respiratory failure with hypoxia and hypercapnia Status: Acute Assessment and plan: * Acute respiratory failure with hypoxia and hypercapnia-ABG 7.256/64/32 on 3 L oxygen. Clinically improving. Trial of noninvasive mechanical ventilation since this morning. Repeat ABG/chest imaging. Continue IV steroids bronchodilators * COPD exacerbation-clinical improvement noted on IV steroids bronchodilators. Patient completed 10 days antibiotics recently and no indication for antibiotics at this time * Abdominal pain with tenderness to palpation. CT abdomen rule out acute process * ESRD on HD per nephrology * Chronically elevated troponin, no change from previous admission. History of CAD continuing on home dose beta-zbigniew/aspirin/Plavix/YURIY inhibitor * History of hypertension currently normotensive, continue amlodipine/YURIY i nhibitor/beta-zbigniew/clonidine * History of chronic anemia, secondary to renal disease. Managed by nephrology * DM type II continue basal prandial insulin * Tobacco dependence nicotine patch * Full code * Prophylaxis heparin Plan * CT abdomen * Wean noninvasive ventilation as tolerated * Interval chest imaging/ABG * Continue IV steroids/bronchodilators * Continue pre-existing medical condition management home meds * Continue HD per nephrology * PT OT nutrition support * Discharge planning per case management Current Visit: No Medical - PN: Qual - VTE Deep Vein Thrombosis/Pulmonary Embolism Present on Admission: No
[2019-08-18] MEDS: INSULIN LISPRO 1 UNIT/0.01 ML UNIT SQ SCH ×3 (12:46→21:14)
[2019-08-18] MEDS: MELATONIN 3 MG TABLET PO PRN (21:13)
[2019-08-19] MEDS: HYDROcodone/APAP 5/325MG TABLET PO PRN ×4 (00:30→21:02)
[2019-08-19] MEDS: ALPRAZolam 0.25 MG TABLET PO PRN ×2 (01:36→19:11)
[2019-08-19] MEDS: IPRATROPIUM/ALBUTEROL 3 ML AMPUL.NEB NEB SCH ×3 (02:21→18:04)
--- NOTE | 2019-08-19 04:06 | Cat Scan Report ---
CLINICAL INFORMATION: Left lower quadrant pain COMPARISON: Abdomen and pelvic CT 02/23/2015 and 04/20/2019 TECHNIQUE: 0.625 mm helical slices were obtained from the mid heart through the subtrochanteric regions. Following reconstruction, 2.5 mm sagittal, coronal and axial reformatted images were processed and reviewed at bone and soft tissue windows.The exam was performed using radiation dose optimization techniques including, but not limited to, automated exposure control, adjustment of the mA and/or kV according to patient size and use of iterative reconstruction technique. FINDINGS: Lung bases show moderate emphysema. There is moderate patchy airspace disease in the medial and posterior basilar segments of the lower lobes which has actually improved from the most recent CT two months ago. It may represent residual infiltrate or organizing fibrosis. There are no effusions. The heart is mildly enlarged, but unchanged. Moderate calcification seen in the right coronary artery. Abdominal images show the liver is unremarkable. The gallbladder is surgically absent. Moderate dilatation of the intrahepatic, common hepatic and common bile ducts are unchanged from prior study. The suprapancreatic common bile duct is 16 mm. The common bile duct was normal - 6 mm on the remote 2014 CT. There is no evidence of stone or mass in the ampullary region to explain ductal dilatation: presumably there is post cholecystectomy papillary stenosis.. The pancreatic duct is also mildly dilated: 3 mm. Pancreatic parenchyma is unremarkable. Both kidneys are markedly atrophic suggesting end-stage renal disease: The right is 6.17 cm in length and the left is 6.4 cm in length. No change. Bilateral renal cysts are stable. Mild bilateral adrenal hyperplasia is unchanged. The spleen is normal. The aorta is normal in diameter with heavy calcific plaque in the abdominal aorta and branches. The stomach, small and large bowel are symmetrically dilated small compatible with moderate ileus. Large amount of stool present throughout the colon particularly the rectum related. Images of the pelvis show mild wall thickening of the urinary bladder. Hysterectomy changes noted. The 2.9 x 2 cm ovoid soft tissue nodule with heavy calcification in the right adnexa presumably represents retained right ovary. The imaging appearance is identical to the [address] [place] - it should be considered benign. There is no adenopathy, or free air. A small amount of free fluid has developed in the deep true pelvis. There is moderate subcutaneous edema within the abdomen and pelvic wall The bone windows show no osseous abnormality. IMPRESSION: 1. Moderate ileus with a large amount of colonic stool compatible with constipation. No other definite cause identified for abdominal pain. 2. Moderate dilatation of the intrahepatic and extra hepatic ducts increasing from prior CT. There is no evidence of stone or mass in the ampullary region of the distal common bile duct. Presumably, patient has post cholecystectomy papillary stenosis. Consider GI referral for papillotomy. 3. Moderate emphysema. Fibrosis in both posterior lower lobes. No change 4. 2.9 x 2.1 cm soft tissue nodule in the expected location right ovary which contains very heavy clumped calcification. It is identical radiographically from the [address] and should be considered benign. 5. Marked renal atrophy compatible with end-stage renal disease stable. Scattered small simple cysts on the kidneys stable 6. Mild bilateral adrenal hyperplasia - stable. 7. Diffuse wall thickening of the urinary bladder unchanged from previous study - possible cystitis 8. Small amount of ascites in the deep true pelvis - new. There is also mild subcutaneous edema throughout the abdomen and pelvis Interpreted and Authenticated by: Joe Centeno 08/19/19
[2019-08-19] MEDS: 0.9 % SODIUM CHLORIDE 10 ML SYRINGE IV SCH ×3 (04:43→21:03)
[2019-08-19] MEDS: amLODIPine 10 MG TABLET PO SCH (04:43)
[2019-08-19] MEDS: BUDESONIDE 0.5 MG/2 ML AMPUL.NEB NEB SCH ×2 (06:04→19:49)
[2019-08-19 06:46] LABS: Hematocrit 33.5 % (34.1-44.9); Hemoglobin 10.4 g/dL (11.2-15.7); Mean Platelet Volume 10.2 fL (7.4-10.4); Platelet Count 230 K/mcL (140-440); RBC 3.42 M/mcL (3.59-5.38); Red Cell Distribution Width 14.8 % (11.5-14.5); WBC 6.1 K/mcL (4.50-11.00)
[2019-08-19 07:03] LABS: ALT/SGPT 33 U/l (0-40); AST/SGOT 19 U/l (0-37); Albumin 3.8 gm/dL (3.2-5.2); Albumin/Globulin Ratio 1.9 (1.0-2.3); Alkaline Phosphatase 119 U/L (39-117); Bilirubin,Direct < 0.2 mg/dL (0.0-0.3); Bilirubin,Total 0.2 mg/dL (0.0-1.0); Calcium 8.4 mg/dl (8.6-10.4); Carbon Dioxide 24 mmol/L (22-30); Glucose 191 mg/dL (70-105); Lactate Dehydrogenase 205 U/L (94-250); Phosphorous 5.5 mg/dL (2.7-4.5); Triglycerides 205 mg/dl (<150); Uric Acid 4.7 mg/dL (2.5-8.0)
[2019-08-19 07:12] LABS: Blood Urea Nitrogen 57 mg/dl (8-23); Chloride 88 mmol/L (96-108); Glomerular Filtration Rate 9
[2019-08-19 08:11] LABS: Anisocytosis FEW (NONE SEEN); Lymphocytes % 9 % (15-49); Monocytes % (Manual) 1 % (1-12); Platelet Estimate NORMAL (NORMAL); Polychromasia OCC (NONE SEEN); RBC Fragments FEW (NONE SEEN); RBC Morphology ABNORM (NORMAL); Segmented Neutrophils % 90 % (38-78)
[2019-08-19] MEDS: PANTOPRAZOLE 40 MG TABLET PO SCH (08:44)
--- NOTE | 2019-08-19 09:16 | Nephrology Progress Note ---
Subjective Patient information: Note initiated : 08/19/19 at 9:10 am Service Date, if different from initiated Date: [] Patient: Covert,Cherelle gonzalez 63 y/o F admitted on 08/17/19 for Shortness of breath. Chief Complaint: [] Breathing is better. Abdominal pain has been on and off. No BMs. Objective - Vital Signs Vital signs: Vital Signs Temp Pulse Resp BP Pulse Ox 08/19/19 08:08 66 19 94 08/19/19 08:01 97.2 F 72 16 141/64 94 08/19/19 06:45 68 20 08/19/19 06:01 71 18 160/77 91 08/19/19 05:30 79 20 90 08/19/19 04:02 80 21 91 08/19/19 04:01 98.9 F 81 19 156/79 92 08/19/19 02:20 74 20 94 08/19/19 02:15 35 H 86 L 08/19/19 02:00 82 23 H 91 08/19/19 01:52 76 22 148/69 93 08/19/19 00:02 97.6 F 72 20 132/66 91 08/19/19 00:00 72 19 90 08/18/19 22:51 81 22 114/87 95 08/18/19 22:49 80 21 165/74 96 08/18/19 22:44 71 20 08/18/19 22:02 86 L 08/18/19 22:01 165/74 87 L 08/18/19 20:01 135/69 93 08/18/19 20:00 92 08/18/19 19:04 71 20 08/18/19 17:35 172/79 94 08/18/19 16:00 98.2 F 71 153/93 97 08/18/19 15:49 71 153/93 08/18/19 15:38 75 150/84 08/18/19 15:20 69 163/90 08/18/19 15:07 65 20 95 08/18/19 14:58 67 103/78 08/18/19 14:33 69 130/108 08/18/19 14:00 96.6 F L 72 113/67 97 08/18/19 11:58 98.2 F 72 20 162/80 91 08/18/19 10:37 95 08/18/19 10:34 72 16 08/18/19 10:00 72 18 92 Intake and Output 08/18/19 08/19/19 08/19/19 21:59 05:59 13:59 Intake Total 310 Output Total 3000 Balance -3000 310 Intake: Oral 310 Output: Hemodialysis UF 3000 Other: Meal Dinner Percent of Meal Consumed 50% Feeding Ability Assist with Tray Set Up Weight 127 lb Intake & Output: Intake & Output 08/18/19 08/19/19 08/19/19 21:59 05:59 13:59 Intake Total 310 Output Total 3000 Balance -3000 310 Weight 127 lb Intake: Oral 310 Output: Hemodialysis UF 3000 Other: Meal Dinner Percent of Meal Consumed 50% Feeding Ability Assist with Tray Set Up - General Appearance General appearance: cachectic EENT: ATNC Neck: no JVD Respiratory: rhonchi Cardiology: holosystolic murmur Neurologic: no focal deficit Musculoskeletal: no deformities - Lab 08/19/19 05:00 08/19/19 05:00 Most recent lab results Calcium 8.4 mg/dl (8.6-10.4) L 08/19/19 05:00 Phosphorus 5.5 mg/dL (2.7-4.5) H 08/19/19 05:00 Magnesium 1.9 mg/dL (1.6-2.5) 08/19/19 05:00 Assessment and Plan (1) End stage chronic kidney disease Status: Acute Comment: Had HD yesterday and will have a treatment again today. K is slightly high. Will change to 2K bath. Constipation. Will give entereg and dulcolex.
[2019-08-19] MEDS: INSULIN LISPRO 1 UNIT/0.01 ML UNIT SQ SCH ×4 (09:21→21:07)
[2019-08-19] MEDS: METOPROLOL TARTRATE 25 MG TABLET PO SCH ×2 (09:23→21:02)
[2019-08-19] MEDS: CLOPIDOGREL 75 MG TABLET PO SCH (09:23)
[2019-08-19] MEDS: CITALOPRAM 20 MG TABLET PO SCH (09:23)
[2019-08-19] MEDS: SENNOSIDES 1 TABLET PO SCH ×2 (09:23→21:02)
[2019-08-19] MEDS: LISINOPRIL 20 MG TABLET PO SCH ×2 (09:23→21:02)
[2019-08-19] MEDS: ASPIRIN 81 MG TAB.CHEW PO SCH (09:23)
[2019-08-19] MEDS: CALCIUM ACETATE 667 MG CAPSULE PO SCH ×3 (09:23→17:38)
[2019-08-19] MEDS: DOCUSATE SODIUM 100 MG CAPSULE PO SCH ×2 (09:23→21:02)
[2019-08-19] MEDS: MULTIVIT,THER IRON,CA,FA & MIN 1 TABLET PO SCH (09:23)
[2019-08-19] MEDS: HEPARIN 5,000 UNIT/ML VIAL SQ SCH ×2 (09:24→21:03)
[2019-08-19] MEDS: LACTOBACILLUS 1 CAPSULE PO SCH ×2 (09:24→17:37)
[2019-08-19] MEDS: methylPREDNISolone SOD SUCC 125 MG/2 ML VIAL IV SCH ×2 (09:24→21:03)
[2019-08-19] MEDS: TIOTROPIUM BROMIDE 18 MCG INHALANT INH SCH (09:24)
[2019-08-19] MEDS: NICOTINE 21 MG PATCH TOPICAL SCH (09:25)
[2019-08-19] MEDS: POLYETHYLENE GLYCOL 3350 17 GM PACKET PO SCH (09:25)
[2019-08-19] MEDS: INSULIN GLARGINE, HUMAN 1 UNIT/0.01 ML SQ SCH (09:25)
[2019-08-19] MEDS: METHYLNALTREXONE BROMIDE 12 MG/0.6 ML SYRINGE SC SCH (09:32)
[2019-08-19] MEDS: POLYVINYL ALCOHOL OPHTH DROPS 15ML BOTTLE OU SCH ×3 (10:21→21:04)
[2019-08-19] MEDS: MUPIROCIN OINT 2% 22GM NARES SCH ×2 (10:21→21:04)
--- NOTE | 2019-08-19 10:59 | Internal Med Progress Note ---
Medical - PN: Subj Patient information: Note initiated : 08/19/19 at 10:57 am Service Date, if different from initiated Date: [] Patient: Cherelle Mcpherson 63 y/o F admitted on 08/17/19 for Shortness of breath. Chief Complaint: [] Interval history: Ms. Mcpherson is a 63 year old F with a known history of ESRD on HD/poorly controlled hypertension/CHF/CAD status post stenting was brought into the ER after experiencing chest pain during dialysis. Patient work-up in the ER was essentially unremarkable including CT chest however ABG revealed 7.25/60 4/32 on 4 L oxygen. Patient was markedly short of breath. Troponins came back at baseline. Patient was probably started on noninvasive ventilation in light of hypercapnic hypoxic respiratory failure. Patient was started on steroids/bronchodilators without adequate relief. Subsequently hospitalist service was consulted. At the time evaluation patient is fatigued lethargic unable to provide any history. Most of the history is obtained from review of medical records. Patient was recently hospitalized from 08/03 and discharged 08/09 with bilateral pneumonia/hypertensive urgency with acute hypoxic story failure. Patient completed 10 days antibiotics and was un dergoing dialysis when she started experience chest pain. She continues to smoke. No history could be obtained from patient. Most of the history was obtained via medical records. No review of systems performed. Patient however denies active chest pain at this time. 08/18-patient now alert and respond to commands. Complains of left-sided upper abdominal pain. Denies nausea diarrhea. Ongoing hemodialysis. No other concerns expressed with nursing staff. Off noninvasive ventilation since 7 AM. Currently on 4 L oxygen. Troponins at baseline, continue IV steroids/bronchodilators. Wean noninvasive ventilation as tolerated. 08/19-patient intermittently on BiPAP. Much improved work of breathing. White count 6.1, potassium 5.6, ongoing hemodialysis per nephrology. CT abdomen: Filled with stool with likely explanation for abdominal pain, no overnight fever chills. ABG improve hypercapnia however persistent hypoxia 7.37/51/56 on 6 L oxygen. Continue supplemental oxygen/ventilatory support. Clinically improving - Constitutional Vitals: Vital Signs Temp Pulse Resp BP Pulse Ox 97.8 F 74 19 153/65 95 08/19/19 10:45 08/19/19 10:45 08/19/19 10:01 08/19/19 10:45 08/19/19 10:01 Period Temp Pulse Resp BP Sys/Talley Pulse Ox Last 24 Hr 96.6 F-98.9 F 65-82 16-35 103-172/64-108 86-97 Intake and Output 08/18/19 08/19/19 08/19/19 21:59 05:59 13:59 Intake Total 310 0 Output Total 3000 Balance -3000 310 0 Weight 127 lb Intake & Output: Intake & Output 08/18/19 08/19/19 08/19/19 21:59 05:59 13:59 Intake Total 310 0 Output Total 3000 Balance -3000 310 0 Weight 127 lb Intake: Oral 310 0 Output: Hemodialysis UF 3000 Other: Meal Dinner Breakfast Percent of Meal Consumed 50% 100% Feeding Ability Assist with Tray Set Up Stool Size Large Stool Color Brown Stool Consistency Dry and Hard Formed # Bowel Movements 1 General appearance: no acute distress Exam: Intermittently on BiPAP Tender right flank Labored breathing No telemetry event Alert and oriented Medical - PN: Obj Da - Labs CBC & Chem 7: 08/19/19 05:00 08/19/19 05:00 Labs: Abnormal Lab Results 08/19/19 08/19/19 08/18/19 05:00 05:00 05:00 WBC RBC 3.42 L Hgb 10.4 L Hct 33.5 L MCHC RDW 14.8 H Lymph % (Auto) Lymph # (Auto) [place] # (Auto) Seg Neutrophils % 90 H Lymphocytes % 9 L RBC Morphology Abnorm A Polychromasia Occ A Anisocytosis Few A RBC Fragments Few A Sodium 131 L Potassium 5.6 H Chloride 88 L 94 L Anion Gap 19.0 H BUN 57 H 30 H Creatinine 4.8 H 3.0 H Glucose 191 H 180 H Calcium 8.4 L 7.5 L Phosphorus 5.5 H 5.4 H GGT 156 H 158 H AST ALT 43 H Alkaline Phosphatase 119 H 122 H Total Creatine Kinase Myoglobin Troponin T Total Protein 5.8 L 5.6 L Globulin 2.0 L 2.1 L Triglycerides 205 H 08/18/19 08/17/19 08/17/19 05:00 14:20 09:52 WBC 2.7 L RBC 3.23 L Hgb 10.0 L Hct 31.8 L MCHC RDW 14.7 H Lymph % (Auto) Lymph # (Auto) [place] # (Auto) Seg Neutrophils % 91 H Lymphocytes % 7 L RBC Morphology Abnorm A Polychromasia Anisocytosis Few A RBC Fragments Sodium Potassium Chloride Anion Gap BUN Creatinine Glucose Calcium Phosphorus GGT AST ALT Alkaline Phosphatase Total Creatine Kinase Myoglobin Troponin T 0.19 H* 0.20 H* Total Protein Globulin Triglycerides 08/17/19 08/17/19 09:52 09:52 WBC RBC 3.43 L Hgb 10.6 L Hct MCHC 30.9 L RDW 15.0 H Lymph % (Auto) 13.7 L Lymph # (Auto) 1.22 L [place] # (Auto) 1.02 H Seg Neutrophils % Lymphocytes % RBC Morphology Polychromasia Anisocytosis RBC Fragments Sodium 131 L Potassium Chloride 88 L Anion Gap 17.0 H BUN 61 H Creatinine 5.4 H* Glucose Calcium 8.3 L Phosphorus GGT AST 48 H ALT 59 H Alkaline Phosphatase 146 H Total Creatine Kinase 22 L Myoglobin 112 H Troponin T Total Protein Globulin Triglycerides Meds: Medications Acetaminophen (Tylenol) 650 mg PO Q4-6HP PRN; Protocol PRN Reason: Per Pain Protocol/Fever > 101 Hydrocodone Bitart/Acetaminophen ([place] 5/325mg) 2 tab PO Q6HP PRN; Protocol PRN Reason: Pain Last Admin: 08/19/19 05:53 Dose: 2 tab Documented by: Albuterol/Ipratropium (Duoneb) 3 ml NEB Q4HRT [facility] Last Admin: 08/19/19 06:45 Dose: 3 ml Documented by: Alprazolam (Xanax) 0.5 mg PO Q8HP PRN PRN Reason: Anxiety Last Admin: 08/19/19 01:36 Dose: 0.5 mg Documented by: Amlodipine Besylate (Norvasc) 10 mg PO MOWEFR@0500 [facility] Last Admin: 08/19/19 04:43 Dose: 10 mg Documented by: Amlodipine Besylate (Norvasc) 10 mg PO SUTUTHSA@0730 [facility] Last Admin: 08/18/19 08:17 Dose: Not Given Documented by: Artificial Tears (Artificial Tears Ophth Drops) 1 gtt OU TID [facility] Last Admin: 08/19/19 10:21 Dose: 1 gtt Documented by: Aspirin (Aspirin) 81 mg PO DAILY [facility] Last Admin: 08/19/19 09:23 Dose: 81 mg Documented by: Benzonatate (Tessalon) 200 mg PO TIDP PRN PRN Reason: Cough Last Admin: 08/18/19 18:06 Dose: 200 mg Documented by: Bisacodyl (Dulcolax) 10 mg NM Q2-3DAYS PRN PRN Reason: Constipation Budesonide (Pulmicort) 0.5 mg NEB Q12 [facility] Last Admin: 08/19/19 06:45 Dose: 0.5 mg Documented by: Calcium Acetate (Phoslo) 1,334 mg PO TIDAC [facility] Last Admin: 08/19/19 09:23 Dose: 1,334 mg Documented by: Citalopram Hydrobromide (Celexa) 20 mg PO DAILY [facility] Last Admin: 08/19/19 09:23 Dose: 20 mg Documented by: Clonidine HCl (Catapres Tts 3) 1 patch TD We@1800 [facility] Last Admin: 08/17/19 20:36 Dose: 1 patch Documented by: Clopidogrel Bisulfate (Plavix) 75 mg PO DAILY [facility] Last Admin: 08/19/19 09:23 Dose: 75 mg Documented by: Diagnostic Test (Pha) (Accu-Chek) 1 each FS ACHS [facility] Last Admin: 08/19/19 07:32 Dose: 1 each Documented by: Docusate Sodium (Colace) 100 mg PO BID [facility] Last Admin: 08/19/19 09:23 Dose: 100 mg Documented by: Heparin Sodium (Porcine) (Heparin) 5,000 unit SQ Q12 [facility] Last Admin: 08/19/19 09:24 Dose: 5,000 unit Documented by: Hydralazine HCl (Apresoline) 10 mg IV Q4-6HP PRN PRN Reason: Hypertension Acetaminophen (Ofirmev) 650 mg in 65 mls @ 130 mls/hr IV Q6HP PRN; Protocol PRN Reason: Per Pain Protocol/Fever > 101 Insulin Glargine (Lantus) 8 unit SQ DAILY [facility] Last Admin: 08/19/19 09:25 Dose: 8 units Documented by: Insulin Human Lispro (Humalog) 0 unit SQ ACHS [facility]; Protocol Last Admin: 08/19/19 09:21 Dose: 2 units Documented by: Iron Carb/Multivit/[place]/Folic Acid (Multivitamin W/Minerals) 1 tab PO DAILY [facility] Last Admin: 08/19/19 09:23 Dose: 1 tab Documented by: Lactobacillus Rhamnosus (Culturelle) 1 cap PO BIDCC [facility] Last Admin: 08/19/19 09:24 Dose: 1 cap Documented by: Lactulose (Cephulac) 30 gm PO DAILYP PRN PRN Reason: Constipation Lactulose (Cephulac) 30 gm PO TID [facility] Lisinopril (Zestril) 20 mg PO BID [facility] Last Admin: 08/19/19 09:23 Dose: 20 mg Documented by: Melatonin (Melatonin 3mg Tablet) 3 mg PO HSP PRN PRN Reason: Insomnia Last Admin: 08/18/19 21:13 Dose: 3 mg Documented by: Methylnaltrexone [place] (Relistor) 12 mg SC DAILY [facility] Stop: 08/21/19 09:01 Last Admin: 08/19/19 09:32 Dose: 12 mg Documented by: Methylprednisolone Sodium Succinate (Solu-Medrol) 60 mg IV Q12 [facility] Last Admin: 08/19/19 09:24 Dose: 60 mg Documented by: Metoprolol Tartrate (Lopressor) 25 mg PO BID [facility] Last Admin: 08/19/19 09:23 Dose: 25 mg Documented by: Mupirocin (Bactroban Oint 2%) 1 dose NARES BID [facility] Last Admin: 08/19/19 10:21 Dose: 1 dose Documented by: Nicotine (Nicoderm) 21 mg TOPICAL DAILY@1000 [facility] Last Admin: 08/19/19 09:25 Dose: 21 mg Documented by: Nitroglycerin (Nitrostat) 0.4 mg SL Q5M PRN PRN Reason: Chest Pain Ondansetron HCl (Zofran Odt) 4 mg SL Q4-6HP PRN; Protocol PRN Reason: Nausea And Vomiting Ondansetron HCl (Zofran) 4 mg IV Q4-6HP PRN; Protocol PRN Reason: Nausea And Vomiting Pantoprazole Sodium (Protonix) 40 mg PO QAMAC [facility] Last Admin: 08/19/19 08:44 Dose: 40 mg Documented by: Polyethylene Glycol (Miralax) 17 gm PO DAILY [facility] Last Admin: 08/19/19 09:25 Dose: 17 gm Documented by: Senna (Senokot) 1 tab PO BID [facility] Last Admin: 08/19/19 09:23 Dose: 1 tab Documented by: Sodium Chloride (Saline Flush) 10 ml IV Q8 [facility] Last Admin: 08/19/19 04:43 Dose: 10 ml Documented by: Tiotropium [place] (Spiriva) 18 mcg INH DAILY [facility] Last Admin: 08/19/19 09:24 Dose: Not Given Documented by: Trazodone HCl (Desyrel) 50 mg PO HSP PRN PRN Reason: Sleep Medical - PN: A/P - Time Spent With Patient Total time spent is greater than 50% in coordination of care (as documented) at patient's floor/unit and/or counseling patient: 25 - 35 minutes (Critical care time) (1) Respiratory failure with hypoxia and hypercapnia Status: Acute Assessment and plan: * Acute respiratory failure with hypoxia and hypercapnia-ABG 7.256/64/32 on 3 L oxygen. Clinically improving. Attempt to wean BiPAP * COPD exacerbation-clinical improvement noted on IV steroids bronchodilators. No indication for antibiotics at this time. Transition to oral steroids * Severe constipation with fluid-filled colon likely cause for abdominal pain with tenderness to palpation. Fecal disimpaction/enemasContinue aggressive bowel regime/ * ESRD -ongoing HD per nephrology * History of CAD with chronically elevated troponin in the setting of ESRD. Continuing on home dose beta-zbigniew/aspirin/Plavix/YURIY inhibitor * History of hypertension currently normotensive, continue amlodipine/YURIY inhibitor/beta-zbigniew/clonidine * History of chronic anemia, secondary to renal disease. Managed by nephrology * DM type II continue basal prandial insulin * Tobacco dependence nicotine patch. Patient attempting to quit * Full code * Prophylaxis heparin Plan * Fecal disimpaction/aggressive bowel regime * Attempt to wean NIPPV * Transition to oral steroids/bronchodilators * Continue pre-existing medical condition management home meds * HD per nephrology * PT OT nutrition support * Discharge planning per case management likely to SNF Current Visit: No Medical - PN: Qual - VTE Deep Vein Thrombosis/Pulmonary Embolism Present on Admission: No
--- NOTE | 2019-08-19 14:32 | Internal Med Progress Note ---
Medical - PN: Subj Patient information: Note initiated : 08/19/19 at 2:24 pm Service Date, if different from initiated Date: [] Patient: Cherelle Mcpherson 63 y/o F admitted on 08/17/19 for Shortness of breath. Chief Complaint: [] Interval history: Ms. Mcpherson is a 63 year old F with a known history of ESRD on HD/poorly controlled hypertension/CHF/CAD status post stenting was brought into the ER after experiencing chest pain during dialysis. Patient work-up in the ER was essentially unremarkable including CT chest however ABG revealed 7.25/60 4/32 on 4 L oxygen. Patient was markedly short of breath. Troponins came back at baseline. Patient was probably started on noninvasive ventilation in light of hypercapnic hypoxic respiratory failure. Patient was started on steroids/bronchodilators without adequate relief. Subsequently hospitalist service was consulted. At the time evaluation patient is fatigued lethargic unable to provide any history. Most of the history is obtained from review of medical records. Patient was recently hospitalized from 08/03 and discharged 08/09 with bilateral pneumonia/hypertensive urgency with acute hypoxic story failure. Patient completed 10 days antibiotics and was und ergoing dialysis when she started experience chest pain. She continues to smoke. No history could be obtained from patient. Most of the history was obtained via medical records. No review of systems performed. Patient however denies active chest pain at this time. 08/18-patient now alert and respond to commands. Complains of left-sided upper abdominal pain. Denies nausea diarrhea. Ongoing hemodialysis. No other concerns expressed with nursing staff. Off noninvasive ventilation since 7 AM. Currently on 4 L oxygen. Troponins at baseline, continue IV steroids/bronchodilators. Wean noninvasive ventilation as tolerated. 08/19-patient intermittently on BiPAP. Much improved work of breathing. White count 6.1, potassium 5.6, ongoing hemodialysis per nephrology. CT abdomen: Filled with stool with likely explanation for abdominal pain, no overnight fever chills. ABG improve hypercapnia however - Constitutional Vitals: Vital Signs Temp Pulse Resp BP Pulse Ox 98 F 72 19 164/89 94 08/19/19 12:15 08/19/19 14:00 08/19/19 12:06 08/19/19 14:00 08/19/19 12:06 Period Temp Pulse Resp BP Sys/Talley Pulse Ox Last 24 Hr 97.2 F-98.9 F 63-82 16-35 78-185/38-108 86-98 Intake and Output 08/19/19 08/19/19 08/19/19 05:59 13:59 21:59 Intake Total 310 0 Balance 310 0 Weight 57.606 kg Patient Weight 08/20/19 05:59 Weight 57.606 kg Intake & Output: Intake & Output 08/19/19 08/19/19 08/19/19 05:59 13:59 21:59 Intake Total 310 0 Balance 310 0 Weight 57.606 kg Intake: Oral 310 0 Other: Meal Breakfast Percent of Meal Consumed 100% Stool Size Large Stool Color Brown Stool Consistency Dry and Hard Formed # Bowel Movements 1 Exam: General: Alert, Awake, NAD Eyes/N/T: EOMI, , Head/Neck: neck supple, CV: RRR, No murmurs, Pulm: no wheezing, better aeration but still diminished, no rales Abd: soft, nontender, +BS x4 Ext: no clubbing/cyanosis/edema Neuro: Alert, no focal deficits, moves all extremities, Skin: warm/dry Medical - PN: Obj Da - Labs CBC & Chem 7: 08/19/19 05:00 08/19/19 05:00 Labs: Abnormal Lab Results 08/19/19 08/19/19 08/18/19 05:00 05:00 05:00 WBC RBC 3.42 L Hgb 10.4 L Hct 33.5 L MCHC RDW 14.8 H Lymph % (Auto) Lymph # (Auto) [place] # (Auto) Seg Neutrophils % 90 H Lymphocytes % 9 L RBC Morphology Abnorm A Polychromasia Occ A Anisocytosis Few A RBC Fragments Few A Sodium 131 L Potassium 5.6 H Chloride 88 L 94 L Anion Gap 19.0 H BUN 57 H 30 H Creatinine 4.8 H 3.0 H Glucose 191 H 180 H Calcium 8.4 L 7.5 L Phosphorus 5.5 H 5.4 H GGT 156 H 158 H AST ALT 43 H Alkaline Phosphatase 119 H 122 H Total Creatine Kinase Myoglobin Troponin T Total Protein 5.8 L 5.6 L Globulin 2.0 L 2.1 L Triglycerides 205 H 08/18/19 08/17/19 08/17/19 05:00 14:20 09:52 WBC 2.7 L RBC 3.23 L Hgb 10.0 L Hct 31.8 L MCHC RDW 14.7 H Lymph % (Auto) Lymph # (Auto) [place] # (Auto) Seg Neutrophils % 91 H Lymphocytes % 7 L RBC Morphology Abnorm A Polychromasia Anisocytosis Few A RBC Fragments Sodium Potassium Chloride Anion Gap BUN Creatinine Glucose Calcium Phosphorus GGT AST ALT Alkaline Phosphatase Total Creatine Kinase Myoglobin Troponin T 0.19 H* 0.20 H* Total Protein Globulin Triglycerides 08/17/19 08/17/19 09:52 09:52 WBC RBC 3.43 L Hgb 10.6 L Hct MCHC 30.9 L RDW 15.0 H Lymph % (Auto) 13.7 L Lymph # (Auto) 1.22 L [place] # (Auto) 1.02 H Seg Neutrophils % Lymphocytes % RBC Morphology Polychromasia Anisocytosis RBC Fragments Sodium 131 L Potassium Chloride 88 L Anion Gap 17.0 H BUN 61 H Creatinine 5.4 H* Glucose Calcium 8.3 L Phosphorus GGT AST 48 H ALT 59 H Alkaline Phosphatase 146 H Total Creatine Kinase 22 L Myoglobin 112 H Troponin T Total Protein Globulin Triglycerides Meds: Medications Acetaminophen (Tylenol) 650 mg PO Q4-6HP PRN; Protocol PRN Reason: Per Pain Protocol/Fever > 101 Hydrocodone Bitart/Acetaminophen ([place] 5/325mg) 2 tab PO Q6HP PRN; Protocol PRN Reason: Pain Last Admin: 08/19/19 05:53 Dose: 2 tab Documented by: Albuterol/Ipratropium (Duoneb) 3 ml NEB Q6HRT [facility] Alprazolam (Xanax) 0.5 mg PO Q8HP PRN PRN Reason: Anxiety Last Admin: 08/19/19 01:36 Dose: 0.5 mg Documented by: Amlodipine Besylate (Norvasc) 10 mg PO MOWEFR@0500 [facility] Last Admin: 08/19/19 04:43 Dose: 10 mg Documented by: Amlodipine Besylate (Norvasc) 10 mg PO SUTUTHSA@0730 [facility] Last Admin: 08/18/19 08:17 Dose: Not Given Documented by: Artificial Tears (Artificial Tears Ophth Drops) 1 gtt OU TID [facility] Last Admin: 08/19/19 10:21 Dose: 1 gtt Documented by: Aspirin (Aspirin) 81 mg PO DAILY [facility] Last Admin: 08/19/19 09:23 Dose: 81 mg Documented by: Benzonatate (Tessalon) 200 mg PO TIDP PRN PRN Reason: Cough Last Admin: 08/18/19 18:06 Dose: 200 mg Documented by: Bisacodyl (Dulcolax) 10 mg [place] Q2-3DAYS PRN PRN Reason: Constipation Budesonide (Pulmicort) 0.5 mg NEB Q12 [facility] Last Admin: 08/19/19 06:45 Dose: 0.5 mg Documented by: Calcium Acetate (Phoslo) 1,334 mg PO TIDAC [facility] Last Admin: 08/19/19 09:23 Dose: 1,334 mg Documented by: Citalopram Hydrobromide (Celexa) 20 mg PO DAILY [facility] Last Admin: 08/19/19 09:23 Dose: 20 mg Documented by: Clonidine HCl (Catapres Tts 3) 1 patch TD We@1800 [facility] Last Admin: 08/17/19 20:36 Dose: 1 patch Documented by: Clopidogrel Bisulfate (Plavix) 75 mg PO DAILY [facility] Last Admin: 08/19/19 09:23 Dose: 75 mg Documented by: Diagnostic Test (Pha) (Accu-Chek) 1 each FS ACHS [facility] Last Admin: 08/19/19 07:32 Dose: 1 each Documented by: Docusate Sodium (Colace) 100 mg PO BID [facility] Last Admin: 08/19/19 09:23 Dose: 100 mg Documented by: Heparin Sodium (Porcine) (Heparin) 5,000 unit SQ Q12 [facility] Last Admin: 08/19/19 09:24 Dose: 5,000 unit Documented by: Hydralazine HCl (Apresoline) 10 mg IV Q4-6HP PRN PRN Reason: Hypertension Acetaminophen (Ofirmev) 650 mg in 65 mls @ 130 mls/hr IV Q6HP PRN; Protocol PRN Reason: Per Pain Protocol/Fever > 101 Insulin Glargine (Lantus) 8 unit SQ DAILY [facility] Last Admin: 08/19/19 09:25 Dose: 8 units Documented by: Insulin Human Lispro (Humalog) 0 unit SQ ACHS [facility]; Protocol Last Admin: 08/19/19 09:21 Dose: 2 units Documented by: Iron Carb/Multivit/[employer] Driver/Folic Acid (Multivitamin W/Minerals) 1 tab PO DAILY [facility] Last Admin: 08/19/19 09:23 Dose: 1 tab Documented by: Lactobacillus Rhamnosus (Culturelle) 1 cap PO BIDCC [facility] Last Admin: 08/19/19 09:24 Dose: 1 cap Documented by: Lactulose (Cephulac) 30 gm PO DAILYP PRN PRN Reason: Constipation Lactulose (Cephulac) 30 gm PO TID [facility] Lisinopril (Zestril) 20 mg PO BID [facility] Last Admin: 08/19/19 09:23 Dose: 20 mg Documented by: Melatonin (Melatonin 3mg Tablet) 3 mg PO HSP PRN PRN Reason: Insomnia Last Admin: 08/18/19 21:13 Dose: 3 mg Documented by: Methylnaltrexone [place] (Relistor) 12 mg SC DAILY [facility] Stop: 08/21/19 09:01 Last Admin: 08/19/19 09:32 Dose: 12 mg Documented by: Methylprednisolone Sodium Succinate (Solu-Medrol) 60 mg IV Q12 [facility] Last Admin: 08/19/19 09:24 Dose: 60 mg Documented by: Metoprolol Tartrate (Lopressor) 25 mg PO BID [facility] Last Admin: 08/19/19 09:23 Dose: 25 mg Documented by: Mupirocin (Bactroban Oint 2%) 1 dose NARES BID [facility] Last Admin: 08/19/19 10:21 Dose: 1 dose Documented by: Nicotine (Nicoderm) 21 mg TOPICAL DAILY@1000 [facility] Last Admin: 08/19/19 09:25 Dose: 21 mg Documented by: Nitroglycerin (Nitrostat) 0.4 mg SL Q5M PRN PRN Reason: Chest Pain Ondansetron HCl (Zofran Odt) 4 mg SL Q4-6HP PRN; Protocol PRN Reason: Nausea And Vomiting Ondansetron HCl (Zofran) 4 mg IV Q4-6HP PRN; Protocol PRN Reason: Nausea And Vomiting Pantoprazole Sodium (Protonix) 40 mg PO QAMAC [facility] Last Admin: 08/19/19 08:44 Dose: 40 mg Documented by: Polyethylene Glycol (Miralax) 17 gm PO DAILY [facility] Last Admin: 08/19/19 09:25 Dose: 17 gm Documented by: Senna (Senokot) 1 tab PO BID [facility] Last Admin: 08/19/19 09:23 Dose: 1 tab Documented by: Sodium Chloride (Saline Flush) 10 ml IV Q8 [facility] Last Admin: 08/19/19 04:43 Dose: 10 ml Documented by: Tiotropium [place] (Spiriva) 18 mcg INH DAILY [facility] Last Admin: 08/19/19 09:24 Dose: Not Given Documented by: Trazodone HCl (Desyrel) 50 mg PO HSP PRN PRN Reason: Sleep Medical - PN: A/P - Time Spent With Patient Total time spent is greater than 50% in coordination of care (as documented) at patient's floor/unit and/or counseling patient: - Narrative A/P Narrative: A: *Acute on chronic hypoxic/hypercapnic respiratory failure: 2/2 AECOPD/pulm fibro sis/and volume overload -on 6L NC oxymask from bipap on -CT chest improved from previous *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 harvey outpt *Pulmonary fibrosis: *Pulmonary nodules: stable *ESRD: follows with [facility] *Anemia, chronic: *h/o dCHF: *DM: *h/o CVA's: *Vascular Dementia: *HTN/HLD: *Depression/anxiety: on sertraline and quetiapine *Tobacco abuse: *Hyperkalemia: per nephrology *Severe constipation with fluid-filled colon likely cause for abdominal pain with tenderness to palpation *Generalized weakness/deconditioning/debility/failure to thrive: *Goals of care: Poor functional status, multiple hospitalizations, decline. Daughter is POA. - P: -corticosteroids (wean)/nebs/RT -wean O2 as able -IS/Acapella -Dr. Tafoya for HD/diuretics/BP meds/electrolytes -cont home clonidine/norvasc/lopressor/lasix; -cont ASA/Plavix -Fecal disimpaction/enemasContinue aggressive bowel regimen -lantus and SSI -pt/ot -Smoking cessation counseling -f/u with pulmonology -ppx: heparin/home ppi likely d/c in AM Medical - PN: Qual - VTE Deep Vein Thrombosis/Pulmonary Embolism Present on Admission: No
[2019-08-19] MEDS: LACTULOSE 20 GM/30 ML ORAL.SOL PO SCH ×2 (15:08→21:02)
[2019-08-19] MEDS: BENZONATATE 100 MG CAPSULE PO PRN (19:10)
[2019-08-19] MEDS: MELATONIN 3 MG TABLET PO PRN (21:02)
[2019-08-19] MEDS: traZODone HCL 50 MG TABLET PO PRN (22:51)
[2019-08-20] MEDS: IPRATROPIUM/ALBUTEROL 3 ML AMPUL.NEB NEB SCH ×5 (01:16→19:04)
[2019-08-20] MEDS: BENZONATATE 100 MG CAPSULE PO PRN ×3 (01:17→20:33)
[2019-08-20] MEDS: HYDROcodone/APAP 5/325MG TABLET PO PRN ×4 (03:05→22:16)
[2019-08-20] MEDS: 0.9 % SODIUM CHLORIDE 10 ML SYRINGE IV SCH ×3 (05:09→22:17)
[2019-08-20 06:53] LABS: Hematocrit 36.3 % (34.1-44.9); Hemoglobin 11.4 g/dL (11.2-15.7); Mean Cell Volume 98.6 fL (80.0-100.0); Mean Corpuscular HGB Conc 31.4 g/dL (31.0-36.0); Mean Platelet Volume 9.6 fL (7.4-10.4); Platelet Count 206 K/mcL (140-440); RBC 3.68 M/mcL (3.59-5.38); Red Cell Distribution Width 15.1 % (11.5-14.5); WBC 4.1 K/mcL (4.50-11.00)
[2019-08-20] MEDS: BUDESONIDE 0.5 MG/2 ML AMPUL.NEB NEB SCH (07:05)
[2019-08-20 07:28] LABS: ALT/SGPT 23 U/l (0-40); AST/SGOT 18 U/l (0-37); Albumin 3.8 gm/dL (3.2-5.2); Albumin/Globulin Ratio 1.7 (1.0-2.3); Alkaline Phosphatase 115 U/L (39-117); Bilirubin,Direct < 0.2 mg/dL (0.0-0.3); Bilirubin,Total 0.2 mg/dL (0.0-1.0); Carbon Dioxide 25 mmol/L (22-30); Globulin 2.2 gm/dL (2.2-3.7); Glucose 162 mg/dL (70-105); Lactate Dehydrogenase 249 U/L (94-250); Triglycerides 219 mg/dl (<150); Uric Acid 3.5 mg/dL (2.5-8.0)
[2019-08-20 07:33] LABS: Blood Urea Nitrogen 33 mg/dl (8-23); Chloride 94 mmol/L (96-108); Glomerular Filtration Rate 13; Phosphorous 3.3 mg/dL (2.7-4.5)
[2019-08-20 08:14] LABS: Anisocytosis FEW (NONE SEEN); Band Neutrophils % 2 % (0-10); Lymphocytes % 15 % (15-49); Monocytes % (Manual) 2 % (1-12); Myelocytes % 1 % (0-0); Platelet Estimate NORMAL (NORMAL); RBC Fragments FEW (NONE SEEN); RBC Morphology ABNORM (NORMAL); Segmented Neutrophils % 80 % (38-78)
[2019-08-20] MEDS: amLODIPine 10 MG TABLET PO SCH (08:26)
[2019-08-20] MEDS: PANTOPRAZOLE 40 MG TABLET PO SCH (08:26)
[2019-08-20] MEDS: INSULIN LISPRO 1 UNIT/0.01 ML UNIT SQ SCH ×4 (08:32→20:37)
--- NOTE | 2019-08-20 08:45 | Internal Med Progress Note ---
Medical - PN: Subj Patient information: Note initiated : 08/20/19 at 8:42 am Service Date, if different from initiated Date: [] Patient: Cherelle Mcpherson 63 y/o F admitted on 08/17/19 for Shortness of breath. Chief Complaint: [] Interval history: Ms. Mcpherson is a 63 year old F with a known history of ESRD on HD/poorly controlled hypertension/CHF/CAD status post stenting was brought into the ER after experiencing chest pain during dialysis. Patient work-up in the ER was essentially unremarkable including CT chest however ABG revealed 7.25/60 4/ on 4 L oxygen. Patient was markedly short of breath. Troponins came back at baseline. Patient was probably started on noninvasive ventilation in light of hypercapnic hypoxic respiratory failure. Patient was started on steroids/bronchodilators without adequate relief. Subsequently hospitalist service was consulted. At the time evaluation patient is fatigued lethargic unable to provide any history. Most of the history is obtained from review of medical records. Patient was recently hospitalized from 08/03 and discharged 08/09 with bilateral pneumonia/hypertensive urgency with acute hypoxic story failure. Patient completed 10 days antibiotics and was und ergoing dialysis when she started experience chest pain. She continues to smoke. No history could be obtained from patient. Most of the history was obtained via medical records. No review of systems performed. Patient however denies active chest pain at this time. 08/18-patient now alert and respond to commands. Complains of left-sided upper abdominal pain. Denies nausea diarrhea. Ongoing hemodialysis. No other concerns expressed with nursing staff. Off noninvasive ventilation since 7 AM. Currently on 4 L oxygen. Troponins at baseline, continue IV steroids/bronchodilators. Wean noninvasive ventilation as tolerated. 08/19-patient intermittently on BiPAP. Much improved work of breathing. White count 6.1, potassium 5.6, ongoing hemodialysis per nephrology. CT abdomen: Filled with stool with likely explanation for abdominal pain, no overnight fever chills. ABG improve hypercapnia however 08/20 Patient did require BiPAP for about half an hour last night. Now off and on 4 L nasal cannula. No new complaints. She feels she is at her baseline shortness of breath. Had hemodialysis yesterday. Weaning steroids. Review of Systems: denies headache/fever/chills/nausea/vomiting/chest or abdominal pain/diarrhea. Otherwise see above. - Constitutional Vitals: Vital Signs Temp Pulse Resp BP Pulse Ox 98.3 F 67 17 171/68 95 08/20/19 04:05 08/20/19 07:05 08/20/19 07:05 08/20/19 06:01 08/20/19 07:05 Period Temp Pulse Resp BP Sys/Talley Pulse Ox Last 24 Hr 97.6 F-99.2 F 63-100 15-31 78-197/38-119 82-99 Intake and Output 08/19/19 08/20/19 08/20/19 21:59 05:59 13:59 Intake Total 200 360 Output Total 3700 Balance -3500 360 Weight 54.522 kg Intake & Output: Intake & Output 08/19/19 08/20/19 08/20/19 21:59 05:59 13:59 Intake Total 200 360 Output Total 3700 Balance -3500 360 Weight 54.522 kg Intake: Oral 200 360 Output: Hemodialysis UF 3700 Other: Meal Lunch Percent of Meal Consumed bites Feeding Ability Assist with Tray Set Up Stool Size Large Large Stool Color Brown Brown Green Stool Consistency Loose Liquid Loose # Bowel Movements 1 # of times incontinent of 1 1 Bowels Exam: General: Alert, Awake, NAD Eyes/N/T: EOMI, , Head/Neck: neck supple, CV: RRR, No murmurs, Pulm: no wheezing, mildly diminished b/l, no rales Abd: soft, nontender, +BS x4 Ext: no clubbing/cyanosis/edema Neuro: Alert, no focal deficits, moves all extremities, Skin: warm/dry Medical - PN: Obj Da - Labs CBC & Chem 7: 08/20/19 05:10 08/20/19 05:10 Labs: Abnormal Lab Results 08/20/19 08/20/19 08/19/19 05:10 05:10 05:00 WBC 4.1 L RBC Hgb Hct MCHC RDW 15.1 H Lymph % (Auto) Lymph # (Auto) Gordon # (Auto) Seg Neutrophils % 80 H Lymphocytes % Myelocytes % 1 H RBC Morphology Abnorm A Polychromasia Anisocytosis Few A RBC Fragments Few A Sodium 131 L Potassium 5.6 H Chloride 94 L 88 L Anion Gap 17.0 H 19.0 H BUN 33 H 57 H Creatinine 3.4 H 4.8 H Glucose 162 H 191 H Calcium 8.4 L Phosphorus 5.5 H GGT 162 H 156 H AST ALT Alkaline Phosphatase 119 H Total Creatine Kinase Myoglobin Troponin T Total Protein 5.8 L Globulin 2.0 L Triglycerides 219 H 205 H 08/19/19 08/18/19 08/18/19 05:00 05:00 05:00 WBC 2.7 L RBC 3.42 L 3.23 L Hgb 10.4 L 10.0 L Hct 33.5 L 31.8 L MCHC RDW 14.8 H 14.7 H Lymph % (Auto) Lymph # (Auto) Gordon # (Auto) Seg Neutrophils % 90 H 91 H Lymphocytes % 9 L 7 L Myelocytes % RBC Morphology Abnorm A Abnorm A Polychromasia Occ A Anisocytosis Few A Few A RBC Fragments Few A Sodium Potassium Chloride 94 L Anion Gap BUN 30 H Creatinine 3.0 H Glucose 180 H Calcium 7.5 L Phosphorus 5.4 H GGT 158 H AST ALT 43 H Alkaline Phosphatase 122 H Total Creatine Kinase Myoglobin Troponin T Total Protein 5.6 L Globulin 2.1 L Triglycerides 08/17/19 08/17/19 08/17/19 14:20 09:52 09:52 WBC RBC Hgb Hct MCHC RDW Lymph % (Auto) Lymph # (Auto) Gordon # (Auto) Seg Neutrophils % Lymphocytes % Myelocytes % RBC Morphology Polychromasia Anisocytosis RBC Fragments Sodium 131 L Potassium Chloride 88 L Anion Gap 17.0 H BUN 61 H Creatinine 5.4 H* Glucose Calcium 8.3 L Phosphorus GGT AST 48 H ALT 59 H Alkaline Phosphatase 146 H Total Creatine Kinase 22 L Myoglobin 112 H Troponin T 0.19 H* 0.20 H* Total Protein Globulin Triglycerides 08/17/19 09:52 WBC RBC 3.43 L Hgb 10.6 L Hct MCHC 30.9 L RDW 15.0 H Lymph % (Auto) 13.7 L Lymph # (Auto) 1.22 L Gordon # (Auto) 1.02 H Seg Neutrophils % Lymphocytes % Myelocytes % RBC Morphology Polychromasia Anisocytosis RBC Fragments Sodium Potassium Chloride Anion Gap BUN Creatinine Glucose Calcium Phosphorus GGT AST ALT Alkaline Phosphatase Total Creatine Kinase Myoglobin Troponin T Total Protein Globulin Triglycerides Meds: Medications Acetaminophen (Tylenol) 650 mg PO Q4-6HP PRN; Protocol PRN Reason: Per Pain Protocol/Fever > 101 Hydrocodone Bitart/Acetaminophen ([place]un[place] 5/325mg) 2 tab PO Q6HP PRN; Protocol PRN Reason: Pain Last Admin: 08/20/19 03:05 Dose: 2 tab Documented by: Albuterol/Ipratropium (Duoneb) 3 ml NEB Q6HRT [facility] Last Admin: 08/20/19 07:05 Dose: 3 ml Documented by: Alprazolam (Xanax) 0.5 mg PO Q8HP PRN PRN Reason: Anxiety Last Admin: 08/19/19 19:11 Dose: 0.5 mg Documented by: Amlodipine Besylate (Norvasc) 10 mg PO MOWEFR@0500 [facility] Last Admin: 08/19/19 04:43 Dose: 10 mg Documented by: Amlodipine Besylate (Norvasc) 10 mg PO SUTUTHSA@0730 [facility] Last Admin: 08/20/19 08:26 Dose: 10 mg Documented by: Artificial Tears (Artificial Tears Ophth Drops) 1 gtt OU TID [facility] Last Admin: 08/19/19 21:04 Dose: 1 gtt Documented by: Aspirin (Aspirin) 81 mg PO DAILY [facility] Last Admin: 08/19/19 09:23 Dose: 81 mg Documented by: Benzonatate (Tessalon) 200 mg PO TIDP PRN PRN Reason: Cough Last Admin: 08/20/19 01:17 Dose: 200 mg Documented by: Bisacodyl (Dulcolax) 10 mg SD Q2-3DAYS PRN PRN Reason: Constipation Budesonide (Pulmicort) 0.5 mg NEB Q12 [facility] Last Admin: 08/20/19 07:05 Dose: 0.5 mg Documented by: Calcium Acetate (Phoslo) 1,334 mg PO TIDAC [facility] Last Admin: 08/19/19 17:38 Dose: 1,334 mg Documented by: Citalopram Hydrobromide (Celexa) 20 mg PO DAILY [facility] Last Admin: 08/19/19 09:23 Dose: 20 mg Documented by: Clonidine HCl (Catapres Tts 3) 1 patch TD We@1800 [facility] Last Admin: 08/17/19 20:36 Dose: 1 patch Documented by: Clopidogrel Bisulfate (Plavix) 75 mg PO DAILY [facility] Last Admin: 08/19/19 09:23 Dose: 75 mg Documented by: Diagnostic Test (Pha) (Accu-Chek) 1 each FS ACHS [facility] Last Admin: 08/20/19 08:31 Dose: 1 each Documented by: Docusate Sodium (Colace) 100 mg PO BID [facility] Last Admin: 08/19/19 21:02 Dose: 100 mg Documented by: Heparin Sodium (Porcine) (Heparin) 5,000 unit SQ Q12 [facility] Last Admin: 08/19/19 21:03 Dose: 5,000 unit Documented by: Hydralazine HCl (Apresoline) 10 mg IV Q4-6HP PRN PRN Reason: Hypertension Last Admin: 08/20/19 01:16 Dose: 10 mg Documented by: Acetaminophen (Ofirmev) 650 mg in 65 mls @ 130 mls/hr IV Q6HP PRN; Protocol PRN Reason: Per Pain Protocol/Fever > 101 Insulin Glargine (Lantus) 8 unit SQ DAILY [facility] Last Admin: 08/19/19 09:25 Dose: 8 units Documented by: Insulin Human Lispro (Humalog) 0 unit SQ [facility]; Protocol Last Admin: 08/20/19 08:32 Dose: Not Given Documented by: Iron Carb/Multivit/Tetryl Boiling Tub Operator/Folic Acid (Multivitamin W/Minerals) 1 tab PO DAILY [facility] Last Admin: 08/19/19 09:23 Dose: 1 tab Documented by: Lactobacillus Rhamnosus (Culturelle) 1 cap PO BIDCC [facility] Last Admin: 08/19/19 17:37 Dose: 1 cap Documented by: Lactulose (Cephulac) 30 gm PO DAILYP PRN PRN Reason: Constipation Lactulose (Cephulac) 30 gm PO TID [facility] Last Admin: 08/19/19 21:02 Dose: 30 gm Documented by: Lisinopril (Zestril) 20 mg PO BID [facility] Last Admin: 08/19/19 21:02 Dose: 20 mg Documented by: Melatonin (Melatonin 3mg Tablet) 3 mg PO HSP PRN PRN Reason: Insomnia Last Admin: 08/19/19 21:02 Dose: 3 mg Documented by: Methylnaltrexone [place] (Relistor) 12 mg SC DAILY [facility] Stop: 08/21/19 09:01 Last Admin: 08/19/19 09:32 Dose: 12 mg Documented by: Methylprednisolone Sodium Succinate (Solu-Medrol) 60 mg IV Q12 [facility] Last Admin: 08/19/19 21:03 Dose: 60 mg Documented by: Metoprolol Tartrate (Lopressor) 25 mg PO BID [facility] Last Admin: 08/19/19 21:02 Dose: 25 mg Documented by: Mupirocin (Bactroban Oint 2%) 1 dose NARES BID [facility] Last Admin: 08/19/19 21:04 Dose: 1 dose Documented by: Nicotine (Nicoderm) 21 mg TOPICAL DAILY@1000 [facility] Last Admin: 08/19/19 09:25 Dose: 21 mg Documented by: Nitroglycerin (Nitrostat) 0.4 mg SL Q5M PRN PRN Reason: Chest Pain Ondansetron HCl (Zofran Odt) 4 mg SL Q4-6HP PRN; Protocol PRN Reason: Nausea And Vomiting Ondansetron HCl (Zofran) 4 mg IV Q4-6HP PRN; Protocol PRN Reason: Nausea And Vomiting Pantoprazole Sodium (Protonix) 40 mg PO QAMAC [facility] Last Admin: 08/20/19 08:26 Dose: 40 mg Documented by: Polyethylene Glycol (Miralax) 17 gm PO DAILY [facility] Last Admin: 08/19/19 09:25 Dose: 17 gm Documented by: Senna (Senokot) 1 tab PO BID [facility] Last Admin: 08/19/19 21:02 Dose: 1 tab Documented by: Sodium Chloride (Saline Flush) 10 ml IV Q8 [facility] Last Admin: 08/20/19 05:09 Dose: 10 ml Documented by: Tiotropium [place] (Spiriva) 18 mcg INH DAILY [facility] Last Admin: 08/19/19 09:24 Dose: Not Given Documented by: Trazodone HCl (Desyrel) 50 mg PO HSP PRN PRN Reason: Sleep Last Admin: 08/19/19 22:51 Dose: 50 mg Documented by: Medical - PN: A/P - Time Spent With Patient Total time spent is greater than 50% in coordination of care (as documented) at patient's floor/unit and/or counseling patient: - Narrative A/P Narrative: A: *Acute on chronic hypoxic/hypercapnic respiratory failure: 2/2 AECOPD/pulm fibrosis/and volume overload -on 4L NC now from bipap on and 30minutes of use last night -CT chest improved from previous *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 harvey outpt *Pulmonary fibrosis: *Pulmonary nodules: stable *ESRD: follows with Michelet *Anemia, chronic: *h/o dCHF: *DM: *h/o CVA's: *Vascular Dementia: *HTN/HLD: *Depression/anxiety: on sertraline and quetiapine *Tobacco abuse: *Hyperkalemia: per nephrology *Severe constipation with fluid-filled colon likely cause for abdominal pain with tenderness to palpation: Improved *Generalized weakness/deconditioning/debility/failure to thrive: *Goals of care: Poor functional status, multiple hospitalizations, decline. Daughter is POA. - P: -corticosteroids (wean)/nebs/RT -wean O2 as able -IS/Acapella -Dr. Tafoya for HD/diuretics/BP meds/electrolytes -cont home clonidine/norvasc/lopressor/lasix; -cont ASA/Plavix -Fecal disimpaction/enemas, Continue aggressive bowel regimen -lantus and SSI -pt/ot -Smoking cessation counseling -f/u with pulmonology -ppx: heparin/home ppi likely d/c in AM Medical - PN: Qual - VTE Deep Vein Thrombosis/Pulmonary Embolism Present on Admission: No
[2019-08-20] MEDS: CALCIUM ACETATE 667 MG CAPSULE PO SCH ×3 (08:50→17:03)
[2019-08-20] MEDS: LACTULOSE 20 GM/30 ML ORAL.SOL PO SCH ×3 (09:04→20:32)
[2019-08-20] MEDS: DOCUSATE SODIUM 100 MG CAPSULE PO SCH ×2 (09:05→20:33)
[2019-08-20] MEDS: LISINOPRIL 20 MG TABLET PO SCH ×2 (09:05→20:33)
[2019-08-20] MEDS: predniSONE 20 MG TABLET PO SCH ×2 (09:05→20:32)
[2019-08-20] MEDS: LACTOBACILLUS 1 CAPSULE PO SCH ×2 (09:05→17:03)
[2019-08-20] MEDS: METOPROLOL TARTRATE 25 MG TABLET PO SCH ×2 (09:05→20:33)
[2019-08-20] MEDS: SENNOSIDES 1 TABLET PO SCH ×2 (09:05→20:33)
[2019-08-20] MEDS: ASPIRIN 81 MG TAB.CHEW PO SCH (09:05)
[2019-08-20] MEDS: CLOPIDOGREL 75 MG TABLET PO SCH (09:05)
[2019-08-20] MEDS: HEPARIN 5,000 UNIT/ML VIAL SQ SCH ×2 (09:05→20:33)
[2019-08-20] MEDS: MULTIVIT,THER IRON,CA,FA & MIN 1 TABLET PO SCH (09:05)
[2019-08-20] MEDS: CITALOPRAM 20 MG TABLET PO SCH (09:05)
[2019-08-20] MEDS: INSULIN GLARGINE, HUMAN 1 UNIT/0.01 ML SQ SCH (09:07)
[2019-08-20] MEDS: POLYVINYL ALCOHOL OPHTH DROPS 15ML BOTTLE OU SCH ×3 (09:08→20:33)
[2019-08-20] MEDS: TIOTROPIUM BROMIDE 18 MCG INHALANT INH SCH (09:09)
[2019-08-20] MEDS: POLYETHYLENE GLYCOL 3350 17 GM PACKET PO SCH (09:09)
[2019-08-20] MEDS: MUPIROCIN OINT 2% 22GM NARES SCH ×2 (09:09→20:46)
[2019-08-20] MEDS: METHYLNALTREXONE BROMIDE 12 MG/0.6 ML SYRINGE SC SCH (09:09)
[2019-08-20] MEDS: NICOTINE 21 MG PATCH TOPICAL SCH (10:12)
[2019-08-20] MEDS: LIDOCAINE PATCH TOPICAL SCH (11:31)
[2019-08-20] MEDS: hydrALAZINE 20 MG/ML VIAL IV PRN ×3 (16:35→22:16)
[2019-08-20] MEDS: ALPRAZolam 0.25 MG TABLET PO PRN (17:03)
[2019-08-20] MEDS: MELATONIN 3 MG TABLET PO PRN (20:33)
[2019-08-20] MEDS: traZODone HCL 50 MG TABLET PO PRN (20:33)
[2019-08-20] MEDS ORDERED: ALBUMIN HUMAN 12.5 GM/50 ML BAG IV ONE (21:05)
[2019-08-21] MEDS: hydrALAZINE 20 MG/ML VIAL IV PRN ×3 (02:04→19:15)
[2019-08-21] MEDS: BUDESONIDE 0.5 MG/2 ML AMPUL.NEB NEB SCH ×4 (02:05→21:00)
[2019-08-21] MEDS: IPRATROPIUM/ALBUTEROL 3 ML AMPUL.NEB NEB SCH ×4 (02:51→19:29)
[2019-08-21] MEDS: ALPRAZolam 0.25 MG TABLET PO PRN ×2 (03:03→19:15)
[2019-08-21] MEDS: BENZONATATE 100 MG CAPSULE PO PRN ×3 (03:03→19:14)
[2019-08-21] MEDS: 0.9 % SODIUM CHLORIDE 10 ML SYRINGE IV SCH ×3 (05:47→21:00)
[2019-08-21 06:31] LABS: Hematocrit 38.2 % (34.1-44.9); Hemoglobin 11.8 g/dL (11.2-15.7); Mean Cell Volume 99.2 fL (80.0-100.0); Mean Corpuscular HGB Conc 30.9 g/dL (31.0-36.0); Mean Platelet Volume 10.5 fL (7.4-10.4); Platelet Count 245 K/mcL (140-440); RBC 3.85 M/mcL (3.59-5.38); Red Cell Distribution Width 15.3 % (11.5-14.5); WBC 5.6 K/mcL (4.50-11.00)
[2019-08-21 06:44] LABS: ALT/SGPT 21 U/l (0-40); AST/SGOT 14 U/l (0-37); Albumin 3.9 gm/dL (3.2-5.2); Albumin/Globulin Ratio 1.8 (1.0-2.3); Alkaline Phosphatase 109 U/L (39-117); Bilirubin,Direct < 0.2 mg/dL (0.0-0.3); Bilirubin,Total 0.2 mg/dL (0.0-1.0); Blood Urea Nitrogen 58 mg/dl (8-23); Calcium 9.2 mg/dl (8.6-10.4); Carbon Dioxide 25 mmol/L (22-30); Chloride 94 mmol/L (96-108); Globulin 2.2 gm/dL (2.2-3.7); Glomerular Filtration Rate 10; Glucose 228 mg/dL (70-105); Lactate Dehydrogenase 235 U/L (94-250); Phosphorous 2.9 mg/dL (2.7-4.5); Triglycerides 295 mg/dl (<150); Uric Acid 4.5 mg/dL (2.5-8.0)
[2019-08-21] MEDS: PANTOPRAZOLE 40 MG TABLET PO SCH (07:18)
[2019-08-21] MEDS: amLODIPine 10 MG TABLET PO SCH (07:18)
[2019-08-21 07:21] LABS: Anisocytosis FEW (NONE SEEN); Lymphocytes % 14 % (15-49); Monocytes % (Manual) 1 % (1-12); Platelet Estimate NORMAL (NORMAL); Polychromasia FEW (NONE SEEN); RBC Morphology ABNORM (NORMAL); Segmented Neutrophils % 85 % (38-78)
[2019-08-21] MEDS: CALCIUM ACETATE 667 MG CAPSULE PO SCH ×3 (08:00→17:51)
[2019-08-21] MEDS: INSULIN LISPRO 1 UNIT/0.01 ML UNIT SQ SCH ×4 (08:33→21:04)
[2019-08-21] MEDS: CITALOPRAM 20 MG TABLET PO SCH (08:34)
[2019-08-21] MEDS: SENNOSIDES 1 TABLET PO SCH ×2 (08:34→21:00)
[2019-08-21] MEDS: LACTOBACILLUS 1 CAPSULE PO SCH ×2 (08:34→17:51)
[2019-08-21] MEDS: predniSONE 20 MG TABLET PO SCH (08:34)
[2019-08-21] MEDS: ASPIRIN 81 MG TAB.CHEW PO SCH (08:34)
[2019-08-21] MEDS: CLOPIDOGREL 75 MG TABLET PO SCH (08:34)
[2019-08-21] MEDS: LISINOPRIL 20 MG TABLET PO SCH ×2 (08:34→20:59)
[2019-08-21] MEDS: LACTULOSE 20 GM/30 ML ORAL.SOL PO SCH ×3 (08:35→21:03)
[2019-08-21] MEDS: INSULIN GLARGINE, HUMAN 1 UNIT/0.01 ML SQ SCH (08:35)
[2019-08-21] MEDS: HEPARIN 5,000 UNIT/ML VIAL SQ SCH ×2 (08:35→20:59)
[2019-08-21] MEDS: MULTIVIT,THER IRON,CA,FA & MIN 1 TABLET PO SCH (08:35)
[2019-08-21] MEDS: DOCUSATE SODIUM 100 MG CAPSULE PO SCH ×2 (08:35→21:00)
[2019-08-21] MEDS: MUPIROCIN OINT 2% 22GM NARES SCH ×2 (08:36→20:59)
[2019-08-21] MEDS: POLYVINYL ALCOHOL OPHTH DROPS 15ML BOTTLE OU SCH ×3 (08:36→21:04)
[2019-08-21] MEDS: METOPROLOL TARTRATE 25 MG TABLET PO SCH (08:37)
--- NOTE | 2019-08-21 08:55 | Internal Med Progress Note ---
Medical - PN: Subj Patient information: Note initiated : 08/21/19 at 8:47 am Service Date, if different from initiated Date: [] Patient: Cherelle Mcpherson 63 y/o F admitted on 08/17/19 for Shortness of breath. Chief Complaint: [] Interval history: Ms. Mcpherson is a 63 year old F with a known history of ESRD on HD/poorly controlled hypertension/CHF/CAD status post stenting was brought into the ER after experiencing chest pain during dialysis. Patient work-up in the ER was essentially unremarkable including CT chest however ABG revealed 7.25/60 on 4 L oxygen. Patient was markedly short of breath. Troponins came back at baseline. Patient was probably started on noninvasive ventilation in light of hypercapnic hypoxic respiratory failure. Patient was started on steroids/bronchodilators without adequate relief. Subsequently hospitalist service was consulted. At the time evaluation patient is fatigued lethargic unable to provide any history. Most of the history is obtained from review of medical records. Patient was recently hospitalized from 08/03 and discharged 08/09 with bilateral pneumonia/hypertensive urgency with acute hypoxic story failure. Patient completed 10 days antibiotics and was und ergoing dialysis when she started experience chest pain. She continues to smoke. No history could be obtained from patient. Most of the history was obtained via medical records. No review of systems performed. Patient however denies active chest pain at this time. 08/18-patient now alert and respond to commands. Complains of left-sided upper abdominal pain. Denies nausea diarrhea. Ongoing hemodialysis. No other concerns expressed with nursing staff. Off noninvasive ventilation since 7 AM. Currently on 4 L oxygen. Troponins at baseline, continue IV steroids/bronchodilators. Wean noninvasive ventilation as tolerated. 08/19-patient intermittently on BiPAP. Much improved work of breathing. White count 6.1, potassium 5.6, ongoing hemodialysis per nephrology. CT abdomen: Filled with stool with likely explanation for abdominal pain, no overnight fever chills. ABG improve hypercapnia however 08/20 Patient did require BiPAP for about half an hour last night. Now off and on 4 L nasal cannula. No new complaints. She feels she is at her baseline shortness of breath. Had hemodialysis yesterday. Weaning steroids. 08/21 States she feels crummy but better than yesterday. She was placed on BiPAP last night because she appeared to be exhausted after moving around. But she is now back on nasal cannula. required PRN blood pressure medications last night. Review of Systems: denies headache/fever/chills/nausea/vomiting/chest or abdominal pain/diarrhea. Otherwise see above. - Constitutional Vitals: Vital Signs Temp Pulse Resp BP Pulse Ox 97.9 F 89 27 H 153/82 93 08/21/19 08:00 08/21/19 08:00 08/21/19 08:00 08/21/19 08:00 08/21/19 08:00 Period Temp Pulse Resp BP Sys/Talley Pulse Ox Last 24 Hr 97.9 F-98.6 F 69-95 17-39 129-190/58-94 85-100 Intake and Output 08/20/19 08/21/19 08/21/19 21:59 05:59 13:59 Intake Total 100 50 Output Total 250 Balance 100 -200 Weight 55.52 kg Intake & Output: Intake & Output 08/20/19 08/21/19 08/21/19 21:59 05:59 13:59 Intake Total 100 50 Output Total 250 Balance 100 -200 Weight 55.52 kg Intake: Oral 100 50 Output: Stool 250 Other: Stool Size Large Small Stool Color Brown Brown Stool Consistency Dry and Hard Liquid Liquid # Bowel Movements 1 2 # of times incontinent of 1 Bowels Exam: General: Alert, Awake, NAD Eyes/N/T: EOMI, , Head/Neck: neck supple, CV: RRR, No murmurs, Pulm: mild exp wheeze on right, mildly diminished b/l, no rales Abd: soft, nontender, +BS x4 Ext: no clubbing/cyanosis/edema Neuro: Alert, no focal deficits, moves all extremities, Skin: warm/dry Medical - PN: Obj Da - Labs CBC & Chem 7: 08/21/19 05:15 08/21/19 05:15 Labs: Abnormal Lab Results 08/21/19 08/21/19 08/20/19 05:15 05:15 05:10 WBC RBC Hgb Hct MCHC 30.9 L RDW 15.3 H MPV 10.5 H Seg Neutrophils % 85 H Lymphocytes % 14 L Myelocytes % RBC Morphology Abnorm A Polychromasia Few A Anisocytosis Few A RBC Fragments Sodium Potassium Chloride 94 L 94 L Anion Gap 17.0 H BUN 58 H 33 H Creatinine 4.3 H 3.4 H Glucose 228 H 162 H Calcium Phosphorus GGT 151 H 162 H Alkaline Phosphatase Total Protein Globulin Triglycerides 295 H 219 H 08/20/19 08/19/19 08/19/19 05:10 05:00 05:00 WBC 4.1 L RBC 3.42 L Hgb 10.4 L Hct 33.5 L MCHC RDW 15.1 H 14.8 H MPV Seg Neutrophils % 80 H 90 H Lymphocytes % 9 L Myelocytes % 1 H RBC Morphology Abnorm A Abnorm A Polychromasia Occ A Anisocytosis Few A Few A RBC Fragments Few A Few A Sodium 131 L Potassium 5.6 H Chloride 88 L Anion Gap 19.0 H BUN 57 H Creatinine 4.8 H Glucose 191 H Calcium 8.4 L Phosphorus 5.5 H GGT 156 H Alkaline Phosphatase 119 H Total Protein 5.8 L Globulin 2.0 L Triglycerides 205 H Meds: Medications Acetaminophen (Tylenol) 650 mg PO Q4-6HP PRN; Protocol PRN Reason: Per Pain Protocol/Fever > 101 Last Admin: 08/21/19 03:03 Dose: 650 mg Documented by: Hydrocodone Bitart/Acetaminophen ([place] 5/325mg) 2 tab PO Q6HP PRN; Protocol PRN Reason: Pain Last Admin: 08/20/19 22:16 Dose: 2 tab Documented by: Albuterol/Ipratropium (Duoneb) 3 ml NEB Q6HRT [facility] Last Admin: 08/21/19 06:39 Dose: 3 ml Documented by: Alprazolam (Xanax) 0.5 mg PO Q8HP PRN PRN Reason: Anxiety Last Admin: 08/21/19 03:03 Dose: 0.5 mg Documented by: Amlodipine Besylate (Norvasc) 10 mg PO MOWEFR@0500 [facility] Last Admin: 08/19/19 04:43 Dose: 10 mg Documented by: Amlodipine Besylate (Norvasc) 10 mg PO SUTUTHSA@0730 [facility] Last Admin: 08/21/19 07:18 Dose: 10 mg Documented by: Artificial Tears (Artificial Tears Ophth Drops) 1 gtt OU TID [facility] Last Admin: 08/21/19 08:36 Dose: 1 gtt Documented by: Aspirin (Aspirin) 81 mg PO DAILY [facility] Last Admin: 08/21/19 08:34 Dose: 81 mg Documented by: Benzonatate (Tessalon) 200 mg PO TIDP PRN PRN Reason: Cough Last Admin: 08/21/19 03:03 Dose: 200 mg Documented by: Bisacodyl (Dulcolax) 10 mg AK Q2-3DAYS PRN PRN Reason: Constipation Budesonide (Pulmicort) 0.5 mg NEB Q12 [facility] Last Admin: 08/21/19 06:39 Dose: 0.5 mg Documented by: Calcium Acetate (Phoslo) 1,334 mg PO TIDAC [facility] Last Admin: 08/21/19 08:00 Dose: 1,334 mg Documented by: Citalopram Hydrobromide (Celexa) 20 mg PO DAILY [facility] Last Admin: 08/21/19 08:34 Dose: 20 mg Documented by: Clonidine HCl (Catapres Tts 3) 1 patch TD We@1800 [facility] Last Admin: 08/17/19 20:36 Dose: 1 patch Documented by: Clopidogrel Bisulfate (Plavix) 75 mg PO DAILY [facility] Last Admin: 08/21/19 08:34 Dose: 75 mg Documented by: Diagnostic Test (Pha) (Accu-Chek) 1 each FS ACHS [facility] Last Admin: 08/21/19 08:33 Dose: 1 each Documented by: Docusate Sodium (Colace) 100 mg PO BID [facility] Last Admin: 08/21/19 08:35 Dose: Not Given Documented by: Heparin Sodium (Porcine) (Heparin) 5,000 unit SQ Q12 [facility] Last Admin: 08/21/19 08:35 Dose: 5,000 unit Documented by: Hydralazine HCl (Apresoline) 0 mg IV Q2HP PRN PRN Reason: Hypertension Last Admin: 08/21/19 02:04 Dose: 20 mg Documented by: Acetaminophen (Ofirmev) 650 mg in 65 mls @ 130 mls/hr IV Q6HP PRN; Protocol PRN Reason: Per Pain Protocol/Fever > 101 Insulin Glargine (Lantus) 8 unit SQ DAILY [facility] Last Admin: 08/21/19 08:35 Dose: 8 units Documented by: Insulin Human Lispro (Humalog) 0 unit SQ ACHS [facility]; Protocol Last Admin: 08/21/19 08:33 Dose: 3 units Documented by: Iron Carb/Multivit/Heavy Equipment Sales Associate/Folic Acid (Multivitamin W/Minerals) 1 tab PO DAILY [facility] Last Admin: 08/21/19 08:35 Dose: 1 tab Documented by: Lactobacillus Rhamnosus (Culturelle) 1 cap PO BIDCC [facility] Last Admin: 08/21/19 08:34 Dose: 1 cap Documented by: Lactulose (Cephulac) 30 gm PO DAILYP PRN PRN Reason: Constipation Lactulose (Cephulac) 30 gm PO TID [facility] Last Admin: 08/21/19 08:35 Dose: 30 gm Documented by: Lidocaine (Lidoderm) 1 patch TOPICAL DAILY@1000 [facility] Last Admin: 08/20/19 11:31 Dose: 1 patch Documented by: Lisinopril (Zestril) 20 mg PO BID [facility] Last Admin: 08/21/19 08:34 Dose: 20 mg Documented by: Melatonin (Melatonin 3mg Tablet) 3 mg PO HSP PRN PRN Reason: Insomnia Last Admin: 08/20/19 20:33 Dose: 3 mg Documented by: Methylnaltrexone [place] (Relistor) 12 mg SC DAILY [facility] Stop: 08/21/19 09:01 Last Admin: 08/20/19 09:09 Dose: 12 mg Documented by: Metoprolol Tartrate (Lopressor) 25 mg PO BID [facility] Last Admin: 08/21/19 08:37 Dose: 25 mg Documented by: Mupirocin (Bactroban Oint 2%) 1 dose NARES BID [facility] Last Admin: 08/21/19 08:36 Dose: 1 dose Documented by: Nicotine (Nicoderm) 21 mg TOPICAL DAILY@1000 [facility] Last Admin: 08/20/19 10:12 Dose: 21 mg Documented by: Nitroglycerin (Nitrostat) 0.4 mg SL Q5M PRN PRN Reason: Chest Pain Ondansetron HCl (Zofran Odt) 4 mg SL Q4-6HP PRN; Protocol PRN Reason: Nausea And Vomiting Ondansetron HCl (Zofran) 4 mg IV Q4-6HP PRN; Protocol PRN Reason: Nausea And Vomiting Pantoprazole Sodium (Protonix) 40 mg PO QAMAC [facility] Last Admin: 08/21/19 07:18 Dose: 40 mg Documented by: Polyethylene Glycol (Miralax) 17 gm PO DAILY [facility] Last Admin: 08/20/19 09:09 Dose: 17 gm Documented by: Prednisone (Prednisone) 40 mg PO BID [facility] Last Admin: 08/21/19 08:34 Dose: 40 mg Documented by: Senna (Senokot) 1 tab PO BID [facility] Last Admin: 08/21/19 08:34 Dose: 1 tab Documented by: Sodium Chloride (Saline Flush) 10 ml IV Q8 [facility] Last Admin: 08/21/19 05:47 Dose: 10 ml Documented by: Tiotropium [place] (Spiriva) 18 mcg INH DAILY [facility] Last Admin: 08/20/19 09:09 Dose: Not Given Documented by: Trazodone HCl (Desyrel) 50 mg PO HSP PRN PRN Reason: Sleep Last Admin: 08/20/19 20:33 Dose: 50 mg Documented by: Medical - PN: A/P - Time Spent With Patient Total time spent is greater than 50% in coordination of care (as documented) at patient's floor/unit and/or counseling patient: - Narrative A/P Narrative: A: *Acute on chronic hypoxic/hypercapnic respiratory failure: 2/2 AECOPD/pulm fibrosis/and volume overload -on 5L oxymask from bipap on but used bipap last night for several hours -CT chest improved from previous *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 harvey outpt *Pulmonary fibrosis: *Pulmonary nodules: stable *ESRD: follows with Michelet *Anemia, chronic: *h/o dCHF: *DM: *h/o CVA's: *Vascular Dementia: *HTN/HLD: *Depression/anxiety: on sertraline and quetiapine *Tobacco abuse: *Hyperkalemia: per nephrology *Severe constipation with fluid-filled colon likely cause for abdominal pain with tenderness to palpation: Improved *Generalized weakness/deconditioning/debility/failure to thrive: *Goals of care: Poor functional status, multiple hospitalizations, decline. Daughter is POA. P: -corticosteroids (wean)/nebs/RT -wean O2 as able -IS/Acapella -Dr. Tafoya for HD/diuretics/BP meds/electrolytes -cont home clonidine/norvasc/lopressor/lasix; -cont ASA/Plavix -Continue bowel regimen -lantus and SSI -pt/ot -Smoking cessation counseling -f/u with pulmonology -ppx: heparin/home ppi Medical - PN: Qual - VTE Deep Vein Thrombosis/Pulmonary Embolism Present on Admission: No
[2019-08-21] MEDS ORDERED: BACLOFEN 10 MG TABLET PT SCH (09:00)
[2019-08-21] MEDS ORDERED: INSULIN GLARGINE, HUMAN 1 UNIT/0.01 ML SQ ONE (09:00)
[2019-08-21] MEDS: METHYLNALTREXONE BROMIDE 12 MG/0.6 ML SYRINGE SC SCH (09:48)
[2019-08-21] MEDS: POLYETHYLENE GLYCOL 3350 17 GM PACKET PO SCH (09:48)
[2019-08-21] MEDS: TIOTROPIUM BROMIDE 18 MCG INHALANT INH SCH (09:49)
--- NOTE | 2019-08-21 12:07 | Discharge Summary ---
Medical - DS: Prov Patient information: Note initiated : 08/21/19 at 12:05 pm Service Date, if different from initiated Date: [] Patient: Covert,Cherelle gonzalez 63 y/o F admitted on 08/17/19 for Shortness of breath. Chief Complaint: [] Date of admission: 08/17/19 17:08 Primary care physician: Leta Araujo Consults: 08/17/19 Consult to Physician [CONS] Stat Comment: Consulting Provider: Marshall Altamirano Reason For Exam: Physician to Consult 08/18/19 16:34 Consult to Physician [CONS] Routine Comment: Consulting Provider: Nathan Tafoya Reason For Exam: Physician to Consult Medical - DS: Meds - Discharge Medications Active and Home Medications: Home Medications Citalopram Hydrobromide [Celexa] 20 mg PO DAILY 07/11/15 [History Confirmed 08/18/19 Last Taken 04/16/19] Aspirin [Aspirin EC] 81 mg PO DAILY 07/18/18 [History Confirmed 08/18/19 Last Taken 04/16/19] Clopidogrel Bisulfate [Plavix] 75 mg PO DAILY 07/18/18 [History Confirmed 08/18/19 Last Taken 04/17/19] amLODIPine [Norvasc] 10 mg PO MOWEFR@0500 09/20/18 [History Confirmed 08/18/19 Last Taken 04/18/19] Anoro Ellipta [Umeclidinium-Vilanterol 62.5-25 Mcg/Inh] 1 puff INH DAILY 04/18/19 [History Confirmed 08/18/19 Last Taken 04/16/19] Calcium Acetate [Phoslo] 1,334 mg PO TIDAC 04/18/19 [History Confirmed 08/18/19 Last Taken 04/16/19] Ipratropium/Albuterol [Duoneb] 3 ml NEB Q6H 04/18/19 [History Confirmed 08/18/19 Last Taken 04/17/19] L.acidoph,Paracasei, B.lactis [Probiotic] 1 cap PO BIDCC 04/18/19 [History Confirmed 08/18/19 Last Taken 04/16/19] Lidocaine [Aspercreme Lidocaine] 1 patch TOPICAL DAILY 04/18/19 [History Confirmed 08/18/19 Last Taken 04/17/19] Melatonin [Melatin] 3 mg PO HS 04/18/19 [History Confirmed 08/18/19 Last Taken 04/17/19] Polyethylene Glycol 3350 [Miralax] 17 gm PO DAILY 04/18/19 [History Confirmed 08/18/19 Last Taken Unknown] Tiotropium [place] [Spiriva] 18 mcg INH DAILY 04/18/19 [History Confirmed 08/18/19 Last Taken Unknown] amLODIPine [Norvasc] 10 mg PO SUTUTHSA@0730 04/18/19 [History Confirmed 08/18/19 Last Taken 04/17/19] Ondansetron HCl [Zofran] 4 mg PO Q6HP PRN 04/19/19 [History Confirmed 08/18/19 Last Taken Unknown] Simethicone [Mylicon] 80 mg CHEWED DAILYP PRN 04/19/19 [History Confirmed 08/18/19 Last Taken Unknown] traZODone HCL [Desyrel] 50 mg PO HSP PRN 04/19/19 [History Confirmed 08/18/19 Last Taken Unknown] Lactulose [Cephulac] 30 gm PO DAILYP PRN #20 oral.ar 04/21/19 [Rx Confirmed 08/18/19 Last Taken Unknown] Sennosides [Senna] 8.6 mg PO BID #60 tab 04/21/19 [Rx Confirmed 08/18/19 Last Taken Unknown] ALPRAZolam [Xanax] 0.5 mg PO Q8 PRN 08/04/19 [History Confirmed 08/18/19 Last Taken Unknown] Benzonatate [Tessalon [place]] 200 mg PO TIDP PRN 08/04/19 [History Confirmed 08/18/19 Last Taken Unknown] Bisacodyl [Dulcolax] 10 mg PO DAILY PRN 08/04/19 [History Confirmed 08/18/19 Last Taken Unknown] Bisacodyl [Dulcolax] 10 mg MN DAILY PRN 08/04/19 [History Confirmed 08/18/19 Last Taken Unknown] Dextran 70/Hypromellose [Artificial Tears] 1 each OU TID 08/04/19 [History Confirmed 08/18/19 Last Taken 08/17/19 21:00] Insulin Aspart [Novolog] See Protocol SQ ACHS 08/04/19 [History Confirmed 08/18/19 Last Taken Unknown] Magnesium Hydroxide [Milk of Magnesia] 30 ml PO BIDP PRN 08/04/19 [History Confirmed 08/18/19 Last Taken Unknown] Metoprolol Tartrate [Lopressor] 25 mg PO BID 08/04/19 [History Confirmed 08/18/19 Last Taken Unknown] Nitroglycerin [Nitrostat] 0.4 mg SL Q5M PRN 08/04/19 [History Confirmed 08/18/19 Last Taken Unknown] Pantoprazole Sodium [Protonix] 20 mg PO DAILY 08/04/19 [History Confirmed 08/18/19 Last Taken Unknown] Vitamin D3 2,000 unit PO DAILY 08/04/19 [History Confirmed 08/18/19 Last Taken Unknown] predniSONE [Prednisone] 10 mg PO QAM 08/04/19 [History Confirmed 08/18/19 Last Taken Unknown] HYDROcodone/APAP 5/325MG [[place] 5-325Mg] 2 tab PO Q6 PRN #20 tab 08/07/19 [Rx Confirmed 08/18/19 Last Taken 08/17/19 23:30] Insulin Glargine,Hum.rec.anlog [Lantus Solostar] 8 unit SQ QAM #3 ml 08/07/19 [Rx Confirmed 08/18/19 Last Taken Unknown] Lisinopril [Zestril] 20 mg PO BID #60 tab 08/07/19 [Rx Confirmed 08/18/19 Last Taken Unknown] cloNIDine TTS 3 [Catapres Tts 3] 1 patch TD WEEKLY #5 patch 08/07/19 [Rx Confirmed 08/18/19 Last Taken Unknown] Glucagon,Human Recombinant [Glucagon Emergency Kit] 1 unit IM PRN PRN 08/18/19 [History Confirmed 08/18/19 Last Taken Unknown] Insulin Degludec [Tresiba Flextouch U-100] 6 spr SQ DAILY 08/18/19 [History Confirmed 08/18/19 Last Taken Unknown] Na Phos,M-B/Na Phos,Di-Ba [Fleet Enema Extra] 118 ml MN PRN PRN 08/18/19 [History Confirmed 08/18/19 Last Taken Unknown] Medical - DS: Hosp Hospital Course: Ms. Mcpherson is a 63 year old F with a known history of ESRD on HD/poorly controlled hypertension/CHF/CAD status post stenting was brought into the ER after experiencing chest pain during dialysis. Patient work-up in the ER was essentially unremarkable including CT chest however ABG revealed 7.25/60 on 4 L oxygen. Patient was markedly short of breath. Troponins came back at baseline. Patient was probably started on noninvasive ventilation in light of hypercapnic hypoxic respiratory failure. Patient was started on steroids/bronc hodilators without adequate relief. Subsequently hospitalist service was consulted. At the time evaluation patient is fatigued lethargic unable to provide any history. Most of the history is obtained from review of medical records. Patient was recently hospitalized from 08/03 and discharged 08/09 with bilateral pneumonia/hypertensive urgency with acute hypoxic story failure. Patient completed 10 days antibiotics and was undergoing dialysis when she started experience chest pain. She continues to smoke. No history could be obtained from patient. Most of the history was obtained via medical records. No review of systems performed. Patient however denies active chest pain at this time. 08/18-patient now alert and respond to commands. Complains of left-sided upper abdominal pain. Denies nausea diarrhea. Ongoing hemodialysis. No other concerns expressed with nursing staff. Off noninvasive ventilation since 7 AM. Currently on 4 L oxygen. Troponins at baseline, continue IV stero ids/bronchodilators. Wean noninvasive ventilation as tolerated. 08/19-patient intermittently on BiPAP. Much improved work of breathing. White count 6.1, potassium 5.6, ongoing hemodialysis per nephrology. CT abdomen: Filled with stool with likely explanation for abdominal pain, no overnight fever chills. ABG improve hypercapnia however 08/20 Patient did require BiPAP for about half an hour last night. Now off and on 4 L nasal cannula. No new complaints. She feels she is at her baseline shortness of breath. Had hemodialysis yesterday. Weaning steroids. 08/21 States she feels crummy but better than yesterday. She was placed on BiPAP last night because she appeared to be exhausted after moving around. But she is now back on nasal cannula. required PRN blood pressure medications last night. 08/22 Has chronic shortness of breath. She feels it is near normal. Requiring 4 to 5 L oxygen mask. Discussed with her hospice introduction yesterday and she was more than agreeable to have a visit with them. Discharge diagnosis: Acute on chronic hypoxic hypercapnic resp failure COPD pulmonary fibrosis e Secondary discharge diagnosis: End-stage renal disease chronic anemia heart failure strokes diabetes vascular dementia depression anxiety tobacco abuse - Time Spent with Patient Total time spent providing and/or coordinating discharge services: Greater than 30 minutes Medical - DS: Exam - Constitutional Vitals: Vital Signs Temp Pulse Resp BP Pulse Ox 08/21/19 12:01 99.5 F H 81 21 155/84 91 08/21/19 10:01 93 H 20 151/73 93 08/21/19 09:19 20 153/69 08/21/19 08:00 97.9 F 89 27 H 153/82 93 08/21/19 06:39 79 21 08/21/19 06:01 88 19 153/82 96 08/21/19 04:01 78 21 150/68 93 08/21/19 02:40 94 H 19 180/83 95 08/21/19 02:01 91 H 22 184/94 85 L 08/21/19 01:34 90 08/21/19 00:02 95 H 28 H 92 08/21/19 00:01 98.6 F 95 H 20 182/79 92 08/20/19 22:01 79 21 172/74 96 08/20/19 22:00 79 19 93 08/20/19 20:31 87 21 155/58 95 08/20/19 20:16 72 21 151/66 92 08/20/19 20:01 86 20 129/68 92 08/20/19 19:47 85 29 H 144/78 90 08/20/19 19:31 85 22 152/60 94 08/20/19 19:18 85 19 08/20/19 19:17 85 19 96 08/20/19 19:16 86 20 152/74 97 08/20/19 19:13 100 08/20/19 19:01 82 21 162/80 93 08/20/19 18:51 85 17 166/68 92 08/20/19 18:03 93 H 20 188/93 95 08/20/19 18:00 98.3 F 94 H 21 188/93 93 08/20/19 16:15 21 190/94 08/20/19 16:00 20 08/20/19 14:00 79 18 96 08/20/19 13:05 89 24 H 95 Intake and Output 08/20/19 08/21/19 08/21/19 21:59 05:59 13:59 Intake Total 100 50 100 Output Total 250 Balance 100 -200 100 Intake: Oral 100 50 100 Output: Stool 250 Other: Meal Breakfast Percent of Meal Consumed 100% Stool Size Large Small Small Stool Color Brown Brown Brown Green Stool Consistency Dry and Hard Liquid Liquid Liquid # Bowel Movements 1 2 # of times incontinent of 1 1 Bowels Weight 55.52 kg Medical - DS: Data Labs on day of discharge: Labs from last 24 hours 08/21/19 08/21/19 05:15 05:15 WBC 5.6 RBC 3.85 Hgb 11.8 Hct 38.2 MCV 99.2 MCH 30.6 MCHC 30.9 L RDW 15.3 H Plt Count 245 MPV 10.5 H Total Counted 100 Seg Neutrophils % 85 H Band Neutrophils % Not Reportable Lymphocytes % 14 L Monocytes % (Manual) 1 Platelet Estimate Normal RBC Morphology Abnorm A Polychromasia Few A Anisocytosis Few A Sodium 134 Potassium 4.9 Chloride 94 L Carbon Dioxide 25 Anion Gap 15.0 BUN 58 H Creatinine 4.3 H GFR Calculation 10 Glucose 228 H Uric Acid 4.5 Calcium 9.2 Phosphorus 2.9 Magnesium 2.2 Total Bilirubin 0.2 Direct Bilirubin < 0.2 GGT 151 H AST 14 ALT 21 Alkaline Phosphatase 109 Lactate Dehydrogenase 235 Total Protein 6.1 Albumin 3.9 Globulin 2.2 Albumin/Globulin Ratio 1.8 Triglycerides 295 H Medical - DS: A/P - Patient/Caregiver Discharge Instructions Activity: increase activity as tolerated Diet: Renal/Consistent Carbs - Follow up Plan Follow up with: Leta Araujo MD [Primary Care Provider] - Nathan Tafoya MD [Physician] - Disposition: Xf SNF Prognosis: Serious Rehab Potential: Fair I certify that the patient requires SNF services: Yes Overall status at discharge: patient is progressing back to baseline Medical - DS: Qual - VTE Deep Vein Thrombosis/Pulmonary Embolism Present on Admission: No
[2019-08-21] MEDS: LIDOCAINE PATCH TOPICAL SCH (12:08)
[2019-08-21] MEDS: NICOTINE 21 MG PATCH TOPICAL SCH (12:08)
[2019-08-21] MEDS: HYDROcodone/APAP 5/325MG TABLET PO PRN ×2 (12:11→18:00)
--- NOTE | 2019-08-21 13:45 | XRay Report ---
CLINICAL INFORMATION: Follow COPD and interstitial fibrosis. Right middle and bilateral posterior lower lobe infiltrates COMPARISON: . Chest CT and portable film 08/17/2019 FINDINGS: Left subclavian double-lumen catheter remains in stable satisfactory position. Cardiomediastinal silhouette and pulmonary vessels are normal. COPD changes and interstitial fibrosis throughout both lungs appreciated. Bibasilar infiltrates have improved considerably. There is minor atelectasis left midlung IMPRESSION: Right middle lobe and bibasilar infiltrates improving. Underlying COPD and interstitial fibrosis Interpreted and Authenticated by: Joe Centeno 08/21/19
[2019-08-21] MEDS: METOPROLOL TARTRATE 50 MG TABLET PO SCH (20:59)
[2019-08-21] MEDS: MELATONIN 3 MG TABLET PO PRN (21:08)
[2019-08-21] MEDS: traZODone HCL 50 MG TABLET PO PRN (21:08)
[2019-08-22] MEDS: IPRATROPIUM/ALBUTEROL 3 ML AMPUL.NEB NEB SCH ×4 (00:12→18:55)
[2019-08-22] MEDS: hydrALAZINE 20 MG/ML VIAL IV PRN ×2 (00:20→02:35)
[2019-08-22] MEDS: HYDROcodone/APAP 5/325MG TABLET PO PRN ×3 (02:02→18:47)
[2019-08-22] MEDS: BENZONATATE 100 MG CAPSULE PO PRN (03:47)
[2019-08-22] MEDS: 0.9 % SODIUM CHLORIDE 10 ML SYRINGE IV SCH ×3 (04:15→22:00)
[2019-08-22] MEDS: amLODIPine 10 MG TABLET PO SCH (05:14)
[2019-08-22 06:36] LABS: Hematocrit 36.6 % (34.1-44.9); Hemoglobin 11.5 g/dL (11.2-15.7); Mean Cell Volume 98.1 fL (80.0-100.0); Mean Corpuscular HGB Conc 31.4 g/dL (31.0-36.0); Platelet Count 246 K/mcL (140-440); RBC 3.73 M/mcL (3.59-5.38); Red Cell Distribution Width 15.6 % (11.5-14.5); WBC 8.8 K/mcL (4.50-11.00)
[2019-08-22] MEDS: ALPRAZolam 0.25 MG TABLET PO PRN ×2 (07:02→22:09)
[2019-08-22 07:04] LABS: Bilirubin,Direct < 0.2 mg/dL (0.0-0.3)
[2019-08-22] MEDS: INSULIN LISPRO 1 UNIT/0.01 ML UNIT SQ SCH ×4 (07:05→21:20)
[2019-08-22] MEDS: BUDESONIDE 0.5 MG/2 ML AMPUL.NEB NEB SCH ×2 (07:11→18:55)
[2019-08-22 07:16] LABS: ALT/SGPT 17 U/l (0-40); AST/SGOT 15 U/l (0-37); Albumin 3.7 gm/dL (3.2-5.2); Albumin/Globulin Ratio 1.9 (1.0-2.3); Alkaline Phosphatase 98 U/L (39-117); Bilirubin,Total 0.2 mg/dL (0.0-1.0); Blood Urea Nitrogen 81 mg/dl (8-23); Calcium 9.9 mg/dl (8.6-10.4); Carbon Dioxide 25 mmol/L (22-30); Chloride 89 mmol/L (96-108); Glomerular Filtration Rate 7; Glucose 128 mg/dL (70-105); Lactate Dehydrogenase 268 U/L (94-250); Phosphorous 2.7 mg/dL (2.7-4.5); Triglycerides 250 mg/dl (<150); Uric Acid 5.1 mg/dL (2.5-8.0)
[2019-08-22 07:38] LABS: Anisocytosis 1+ (NONE SEEN); Band Neutrophils % 1 % (0-10); Lymphocytes % 20 % (15-49); Metamyelocytes % 1 % (0-0); Monocytes % (Manual) 3 % (1-12); Platelet Estimate NORMAL (NORMAL); Polychromasia 1+ (NONE SEEN); RBC Fragments 1+ (NONE SEEN); RBC Morphology ABNORM (NORMAL); Segmented Neutrophils % 75 % (38-78)
--- NOTE | 2019-08-22 07:40 | Internal Med Progress Note ---
Medical - PN: Subj Patient information: Note initiated : 08/22/19 at 7:39 am Service Date, if different from initiated Date: [] Patient: Cherelle Mcpherson 63 y/o F admitted on 08/17/19 for Shortness of breath. Chief Complaint: [] Interval history: Ms. Mcpherson is a 63 year old F with a known history of ESRD on HD/poorly controlled hypertension/CHF/CAD status post stenting was brought into the ER after experiencing chest pain during dialysis. Patient work-up in the ER was essentially unremarkable including CT chest however ABG revealed 7.25/60 4 on 4 L oxygen. Patient was markedly short of breath. Troponins came back at baseline. Patient was probably started on noninvasive ventilation in light of hypercapnic hypoxic respiratory failure. Patient was started on steroids/bronchodilators without adequate relief. Subsequently hospitalist service was consulted. At the time evaluation patient is fatigued lethargic unable to provide any history. Most of the history is obtained from review of medical records. Patient was recently hospitalized from 08/03 and discharged 08/09 with bilateral pneumonia/hypertensive urgency with acute hypoxic story failure. Patient completed 10 days antibiotics and was und ergoing dialysis when she started experience chest pain. She continues to smoke. No history could be obtained from patient. Most of the history was obtained via medical records. No review of systems performed. Patient however denies active chest pain at this time. 08/18-patient now alert and respond to commands. Complains of left-sided upper abdominal pain. Denies nausea diarrhea. Ongoing hemodialysis. No other concerns expressed with nursing staff. Off noninvasive ventilation since 7 AM. Currently on 4 L oxygen. Troponins at baseline, continue IV steroids/bronchodilators. Wean noninvasive ventilation as tolerated. 08/19-patient intermittently on BiPAP. Much improved work of breathing. White count 6.1, potassium 5.6, ongoing hemodialysis per nephrology. CT abdomen: Filled with stool with likely explanation for abdominal pain, no overnight fever chills. ABG improve hypercapnia however 08/20 Patient did require BiPAP for about half an hour last night. Now off and on 4 L nasal cannula. No new complaints. She feels she is at her baseline shortness of breath. Had hemodialysis yesterday. Weaning steroids. 08/21 States she feels crummy but better than yesterday. She was placed on BiPAP last night because she appeared to be exhausted after moving around. But she is now back on nasal cannula. required PRN blood pressure medications last night. 08/22 Has chronic shortness of breath. She feels it is near normal. Requiring 4 to 5 L oxygen mask. Discussed with her hospice introduction yesterday and she was more than agreeable to have a visit with them. Review of Systems: denies headache/fever/chills/nausea/vomiting/chest or abdominal pain/diarrhea. Otherwise see above. - Constitutional Vitals: Vital Signs Temp Pulse Resp BP Pulse Ox 98.0 F 78 17 143/66 94 08/22/19 07:06 08/22/19 07:26 08/22/19 07:26 08/22/19 07:06 08/22/19 07:26 Period Temp Pulse Resp BP Sys/Talley Pulse Ox Last 24 Hr 97.4 F-99.5 F 72-94 -27 86-178/61-130 87-97 Intake and Output 08/21/19 08/22/19 08/22/19 21:59 05:59 13:59 Intake Total 830 Output Total 0 Balance 830 0 Intake & Output: Intake & Output 08/21/19 08/22/19 08/22/19 21:59 05:59 13:59 Intake Total 830 Output Total 0 Balance 830 0 Intake: Oral 830 Output: Void Amount 0 Other: Meal Dinner Percent of Meal Consumed 50% Exam: General: Alert, Awake, NAD Eyes/N/T: EOMI, , Head/Neck: neck supple, CV: RRR, No murmurs, Pulm: no wheezing today, mildly diminished b/l, Abd: soft, nontender, +BS x4 Ext: no clubbing/cyanosis/edema Neuro: Alert, no focal deficits, moves all extremities, Skin: warm/dry Medical - PN: Obj Da - Labs CBC & Chem 7: 08/22/19 05:05 08/22/19 05:05 Labs: Abnormal Lab Results 08/22/19 08/22/19 08/21/19 05:05 05:05 05:15 WBC MCHC RDW 15.6 H MPV Seg Neutrophils % Lymphocytes % Metamyelocytes % 1 H Myelocytes % RBC Morphology Abnorm A Polychromasia 1+ A Anisocytosis 1+ A RBC Fragments 1+ A Sodium 130 L Potassium 5.2 H Chloride 89 L 94 L Anion Gap BUN 81 H 58 H Creatinine 5.8 H* 4.3 H Glucose 128 H 228 H GGT 129 H 151 H Lactate Dehydrogenase 268 H Total Protein 5.7 L Globulin 2.0 L Triglycerides 250 H 295 H 08/21/19 08/20/19 08/20/19 05:15 05:10 05:10 WBC 4.1 L MCHC 30.9 L RDW 15.3 H 15.1 H MPV 10.5 H Seg Neutrophils % 85 H 80 H Lymphocytes % 14 L Metamyelocytes % Myelocytes % 1 H RBC Morphology Abnorm A Abnorm A Polychromasia Few A Anisocytosis Few A Few A RBC Fragments Few A Sodium Potassium Chloride 94 L Anion Gap 17.0 H BUN 33 H Creatinine 3.4 H Glucose 162 H GGT 162 H Lactate Dehydrogenase Total Protein Globulin Triglycerides 219 H 08/19/19 05:00 WBC MCHC RDW MPV Seg Neutrophils % 90 H Lymphocytes % 9 L Metamyelocytes % Myelocytes % RBC Morphology Abnorm A Polychromasia Occ A Anisocytosis Few A RBC Fragments Few A Sodium Potassium Chloride Anion Gap BUN Creatinine Glucose GGT Lactate Dehydrogenase Total Protein Globulin Triglycerides Meds: Medications Acetaminophen (Tylenol) 650 mg PO Q4-6HP PRN; Protocol PRN Reason: Per Pain Protocol/Fever > 101 Last Admin: 08/21/19 03:03 Dose: 650 mg Documented by: Hydrocodone Bitart/Acetaminophen ([place] 5/325mg) 2 tab PO Q6HP PRN; Protocol PRN Reason: Pain Last Admin: 08/22/19 02:02 Dose: 2 tab Documented by: Albuterol/Ipratropium (Duoneb) 3 ml NEB Q6HRT [facility] Last Admin: 08/22/19 07:11 Dose: 3 ml Documented by: Alprazolam (Xanax) 0.5 mg PO Q8HP PRN PRN Reason: Anxiety Last Admin: 08/22/19 07:02 Dose: 0.5 mg Documented by: Amlodipine Besylate (Norvasc) 10 mg PO MOWEFR@0500 [facility] Last Admin: 08/22/19 05:14 Dose: 10 mg Documented by: Amlodipine Besylate (Norvasc) 10 mg PO SUTUTHSA@0730 [facility] Last Admin: 08/21/19 07:18 Dose: 10 mg Documented by: Artificial Tears (Artificial Tears Ophth Drops) 1 gtt OU TID [facility] Last Admin: 08/21/19 21:04 Dose: 1 gtt Documented by: Aspirin (Aspirin) 81 mg PO DAILY [facility] Last Admin: 08/21/19 08:34 Dose: 81 mg Documented by: Benzonatate (Tessalon) 200 mg PO TIDP PRN PRN Reason: Cough Last Admin: 08/22/19 03:47 Dose: 200 mg Documented by: Bisacodyl (Dulcolax) 10 mg KS Q2-3DAYS PRN PRN Reason: Constipation Budesonide (Pulmicort) 0.5 mg NEB Q12 [facility] Last Admin: 08/22/19 07:11 Dose: 0.5 mg Documented by: Calcium Acetate (Phoslo) 1,334 mg PO TIDAC [facility] Last Admin: 08/21/19 17:51 Dose: 1,334 mg Documented by: Citalopram Hydrobromide (Celexa) 20 mg PO DAILY [facility] Last Admin: 08/21/19 08:34 Dose: 20 mg Documented by: Clonidine HCl (Catapres Tts 3) 1 patch TD We@1800 [facility] Last Admin: 08/17/19 20:36 Dose: 1 patch Documented by: Clopidogrel Bisulfate (Plavix) 75 mg PO DAILY [facility] Last Admin: 08/21/19 08:34 Dose: 75 mg Documented by: Diagnostic Test (Pha) (Accu-Chek) 1 each FS ACHS [facility] Last Admin: 08/22/19 07:05 Dose: 1 each Documented by: Docusate Sodium (Colace) 100 mg PO BID [facility] Last Admin: 08/21/19 21:00 Dose: Not Given Documented by: Heparin Sodium (Porcine) (Heparin) 5,000 unit SQ Q12 [facility] Last Admin: 08/21/19 20:59 Dose: 5,000 unit Documented by: Hydralazine HCl (Apresoline) 0 mg IV Q2HP PRN PRN Reason: Hypertension Last Admin: 08/22/19 02:35 Dose: 20 mg Documented by: Acetaminophen (Ofirmev) 650 mg in 65 mls @ 130 mls/hr IV Q6HP PRN; Protocol PRN Reason: Per Pain Protocol/Fever > 101 Insulin Glargine (Lantus) 10 unit SQ DAILY [facility] Insulin Human Lispro (Humalog) 0 unit SQ ACHS [facility]; Protocol Last Admin: 08/22/19 07:05 Dose: Not Given Documented by: Iron Carb/Multivit/[place]/Folic Acid (Multivitamin W/Minerals) 1 tab PO DAILY [facility] Last Admin: 08/21/19 08:35 Dose: 1 tab Documented by: Lactobacillus Rhamnosus (Culturelle) 1 cap PO BIDCC [facility] Last Admin: 08/21/19 17:51 Dose: 1 cap Documented by: Lactulose (Cephulac) 30 gm PO DAILYP PRN PRN Reason: Constipation Lactulose (Cephulac) 30 gm PO TID [facility] Last Admin: 08/21/19 21:03 Dose: Not Given Documented by: Lidocaine (Lidoderm) 1 patch TOPICAL DAILY@1000 [facility] Last Admin: 08/21/19 12:08 Dose: 1 patch Documented by: Lisinopril (Zestril) 20 mg PO BID [facility] Last Admin: 08/21/19 20:59 Dose: 20 mg Documented by: Melatonin (Melatonin 3mg Tablet) 3 mg PO HSP PRN PRN Reason: Insomnia Last Admin: 08/21/19 21:08 Dose: 3 mg Documented by: Metoprolol Tartrate (Lopressor) 50 mg PO BID [facility] Last Admin: 08/21/19 20:59 Dose: 50 mg Documented by: Mupirocin (Bactroban Oint 2%) 1 dose NARES BID [facility] Last Admin: 08/21/19 20:59 Dose: 1 dose Documented by: Nicotine (Nicoderm) 21 mg TOPICAL DAILY@1000 [facility] Last Admin: 08/21/19 12:08 Dose: 21 mg Documented by: Nitroglycerin (Nitrostat) 0.4 mg SL Q5M PRN PRN Reason: Chest Pain Ondansetron HCl (Zofran Odt) 4 mg SL Q4-6HP PRN; Protocol PRN Reason: Nausea And Vomiting Ondansetron HCl (Zofran) 4 mg IV Q4-6HP PRN; Protocol PRN Reason: Nausea And Vomiting Pantoprazole Sodium (Protonix) 40 mg PO QAMAC [facility] Last Admin: 08/21/19 07:18 Dose: 40 mg Documented by: Polyethylene Glycol (Miralax) 17 gm PO DAILY [facility] Last Admin: 08/21/19 09:48 Dose: Not Given Documented by: Prednisone (Prednisone) 30 mg PO DAILY [facility] Senna (Senokot) 1 tab PO BID [facility] Last Admin: 08/21/19 21:00 Dose: Not Given Documented by: Sodium Chloride (Saline Flush) 10 ml IV Q8 [facility] Last Admin: 08/22/19 04:15 Dose: 10 ml Documented by: Tiotropium [place] (Spiriva) 18 mcg INH DAILY [facility] Last Admin: 08/21/19 09:49 Dose: Not Given Documented by: Trazodone HCl (Desyrel) 50 mg PO HSP PRN PRN Reason: Sleep Last Admin: 08/21/19 21:08 Dose: 50 mg Documented by: Medical - PN: A/P - Time Spent With Patient Total time spent is greater than 50% in coordination of care (as documented) at patient's floor/unit and/or counseling patient: - Narrative A/P Narrative: A: *Acute on chronic hypoxic/hypercapnic respiratory failure: 2/2 AECOPD/pulm fibrosis/and volume overload -on 5L oxymask from bipap, no bipap required last night -CT chest improved from previous *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 harvey outpt *Pulmonary fibrosis: *Pulmonary nodules: stable *ESRD: follows with [facility] *Anemia, chronic: *h/o dCHF: *DM: *h/o CVA's: *Vascular Dementia: *HTN/HLD: *Depression/anxiety: on sertraline and quetiapine *Tobacco abuse: *Hyperkalemia: per nephrology *Severe constipation with fluid-filled colon likely cause for abdominal pain with tenderness to palpation: Improved *Generalized weakness/deconditioning/debility/failure to thrive: *Goals of care: Poor functional status, multiple hospitalizations, decline. Daughter is POA. P: -corticosteroids (wean)/nebs/RT -wean O2 as able -IS/[facility] -Dr. Tafoya for HD/diuretics/BP meds/electrolytes -cont home clonidine/norvasc/lopressor/lasix; -cont ASA/Plavix -Continue bowel regimen -lantus and SSI -pt/ot -Smoking cessation counseling -f/u with pulmonology -hospice eval -ppx: heparin/home ppi Medical - PN: Qual - VTE Deep Vein Thrombosis/Pulmonary Embolism Present on Admission: No
[2019-08-22] MEDS: POLYETHYLENE GLYCOL 3350 17 GM PACKET PO SCH (08:29)
[2019-08-22] MEDS: SENNOSIDES 1 TABLET PO SCH ×2 (08:29→21:23)
[2019-08-22] MEDS: LISINOPRIL 20 MG TABLET PO SCH ×2 (08:29→21:23)
[2019-08-22] MEDS: ASPIRIN 81 MG TAB.CHEW PO SCH (08:30)
[2019-08-22] MEDS: CLOPIDOGREL 75 MG TABLET PO SCH (08:30)
[2019-08-22] MEDS: predniSONE 10 MG TABLET PO SCH (08:30)
[2019-08-22] MEDS: LACTULOSE 20 GM/30 ML ORAL.SOL PO SCH ×3 (08:31→21:22)
[2019-08-22] MEDS: CITALOPRAM 20 MG TABLET PO SCH (08:31)
[2019-08-22] MEDS: METOPROLOL TARTRATE 50 MG TABLET PO SCH ×2 (08:31→21:23)
[2019-08-22] MEDS: DOCUSATE SODIUM 100 MG CAPSULE PO SCH ×2 (08:31→21:23)
[2019-08-22] MEDS: MULTIVIT,THER IRON,CA,FA & MIN 1 TABLET PO SCH (08:31)
[2019-08-22] MEDS: HEPARIN 5,000 UNIT/ML VIAL SQ SCH ×2 (08:31→21:22)
[2019-08-22] MEDS: CALCIUM ACETATE 667 MG CAPSULE PO SCH ×3 (08:34→16:57)
[2019-08-22] MEDS: PANTOPRAZOLE 40 MG TABLET PO SCH ×2 (08:34→16:57)
[2019-08-22] MEDS: MUPIROCIN OINT 2% 22GM NARES SCH ×2 (08:35→21:23)
[2019-08-22] MEDS: POLYVINYL ALCOHOL OPHTH DROPS 15ML BOTTLE OU SCH ×3 (08:38→21:23)
[2019-08-22] MEDS: LACTOBACILLUS 1 CAPSULE PO SCH ×2 (08:42→18:47)
[2019-08-22] MEDS: INSULIN GLARGINE, HUMAN 1 UNIT/0.01 ML SQ SCH (08:51)
[2019-08-22] MEDS: TIOTROPIUM BROMIDE 18 MCG INHALANT INH SCH (08:52)
[2019-08-22] MEDS: LIDOCAINE PATCH TOPICAL SCH (10:10)
[2019-08-22] MEDS: NICOTINE 21 MG PATCH TOPICAL SCH (10:10)
[2019-08-22] MEDS: NITROGLYCERIN 0.4 MG TAB.SUBL SL PRN ×2 (11:30→11:35)
[2019-08-22] MEDS: ONDANSETRON 4 MG/2 ML VIAL IV PRN (11:36)
--- NOTE | 2019-08-22 16:50 | Nephrology Progress Note ---
Subjective Patient information: Note initiated : 08/22/19 at 4:47 pm Service Date, if different from initiated Date: [] Patient: Covert,Cherelle gonzalez 63 y/o F admitted on 08/17/19 for Shortness of breath. Chief Complaint: [] Still has chest pain on and off. Breathing is hard as well. Objective - Vital Signs Vital signs: Vital Signs Temp Pulse Pulse Resp BP BP Pulse Ox 08/22/19 15:01 98.0 F 18 131/58 95 08/22/19 14:33 96.8 F L 66 112/67 08/22/19 14:31 17 112/67 97 08/22/19 14:30 95 08/22/19 14:20 66 119/62 08/22/19 14:16 19 119/62 98 08/22/19 14:03 64 110/63 08/22/19 14:01 17 110/63 97 08/22/19 13:46 64 20 104/61 97 08/22/19 13:31 67 21 101/59 97 08/22/19 13:16 17 103/62 98 08/22/19 13:15 76 103/62 08/22/19 13:05 68 21 08/22/19 13:03 23 H 97/65 08/22/19 13:02 67 93/48 08/22/19 13:01 24 H 93/48 08/22/19 12:49 64 94/65 08/22/19 12:46 23 H 94/65 98 08/22/19 12:33 65 123/62 08/22/19 12:31 21 123/62 96 08/22/19 12:22 62 114/56 08/22/19 12:16 20 114/56 96 08/22/19 12:13 64 24 H 99/56 87 L 08/22/19 12:05 23 H 87/72 80 L 08/22/19 12:01 18 65/50 95 08/22/19 12:00 18 93 08/22/19 11:34 29 H 129/110 95 08/22/19 11:31 28 H 96 08/22/19 11:30 65 129/110 08/22/19 11:29 22 39/26 08/22/19 11:01 21 137/75 92 08/22/19 11:00 62 137/75 08/22/19 10:32 21 165/82 95 08/22/19 10:30 98.7 F 66 165/82 08/22/19 10:02 20 93 08/22/19 10:01 20 171/73 90 08/22/19 10:00 21 90 08/22/19 08:02 23 H 152/83 08/22/19 08:00 22 08/22/19 07:26 78 17 94 08/22/19 07:07 21 94 08/22/19 07:06 98.0 F 21 143/66 94 08/22/19 07:00 92 08/22/19 06:01 76 17 158/69 97 08/22/19 04:01 72 21 149/61 95 08/22/19 04:00 98.2 F 08/22/19 03:34 89 20 159/89 95 08/22/19 02:19 88 20 174/84 94 08/22/19 02:01 88 20 168/77 90 08/22/19 02:00 98.3 F 85 74 19 168/77 95 08/22/19 00:53 73 21 168/77 96 08/22/19 00:39 72 23 H 95 08/22/19 00:37 72 23 H 08/22/19 00:23 88 23 H 167/82 97 08/22/19 00:05 72 17 172/130 94 08/22/19 00:00 87 24 H 92 08/21/19 22:02 94 H 19 156/106 92 08/21/19 22:00 94 H 22 93 08/21/19 20:02 73 21 94 08/21/19 20:01 74 18 155/74 94 08/21/19 19:38 72 27 H 08/21/19 18:59 95 08/21/19 18:01 19 165/88 Intake and Output 08/22/19 08/22/19 08/22/19 05:59 13:59 21:59 Intake Total 240 Output Total 0 3000 Balance 0 240 -3000 Intake: Oral 240 Output: Void Amount 0 Hemodialysis UF 3000 Other: Meal Breakfast Percent of Meal Consumed 100% Feeding Ability Independent Stool Size Small Stool Color Brown Stool Consistency Loose # of times incontinent of 1 Bowels Intake & Output: Intake & Output 08/22/19 08/22/19 08/22/19 05:59 13:59 21:59 Intake Total 240 Output Total 0 3000 Balance 0 240 -3000 Intake: Oral 240 Output: Void Amount 0 Hemodialysis UF 3000 Other: Meal Breakfast Percent of Meal Consumed 100% Feeding Ability Independent Stool Size Small Stool Color Brown Stool Consistency Loose # of times incontinent of 1 Bowels - General Appearance General appearance: cachectic EENT: ATNC Neck: JVD Cardiology: diastolic murmur Gastrointestinal: normoactive bowel sounds Integumentary: no rash Neurologic: no focal deficit Musculoskeletal: no deformities - Lab 08/22/19 05:05 08/22/19 05:05 Most recent lab results Calcium 9.9 mg/dl (8.6-10.4) 08/22/19 05:05 Phosphorus 2.7 mg/dL (2.7-4.5) 08/22/19 05:05 Magnesium 2.5 mg/dL (1.6-2.5) 08/22/19 05:05 Assessment and Plan (1) End stage chronic kidney disease Status: Acute Comment: Had HD today. Tolerated well. Constipation. Had good BM. Chest pain. I wonder if this is all esophageal. She had esophageal obstruction. I will increase the protonix to 40mg po bid.
[2019-08-22] MEDS: MELATONIN 3 MG TABLET PO PRN (21:23)
[2019-08-22] MEDS: traZODone HCL 50 MG TABLET PO PRN (21:23)
[2019-08-23] MEDS: HYDROcodone/APAP 5/325MG TABLET PO PRN ×3 (00:50→13:10)
[2019-08-23] MEDS: IPRATROPIUM/ALBUTEROL 3 ML AMPUL.NEB NEB SCH ×3 (01:11→13:19)
[2019-08-23] MEDS: 0.9 % SODIUM CHLORIDE 10 ML SYRINGE IV SCH ×9 (06:25→20:46)
[2019-08-23] MEDS: ALPRAZolam 0.25 MG TABLET PO PRN (06:53)
[2019-08-23] MEDS: ONDANSETRON 4 MG/2 ML VIAL IV PRN ×2 (06:55→11:27)
[2019-08-23] MEDS ORDERED: DEXTROSE 50% 50 ML VIAL IV ONE ×3 (07:04→10:33)
[2019-08-23] MEDS: INSULIN LISPRO 1 UNIT/0.01 ML UNIT SQ SCH ×2 (07:41→10:20)
--- NOTE | 2019-08-23 08:52 | Nephrology Progress Note ---
Subjective Patient information: Note initiated : 08/23/19 at 8:49 am Service Date, if different from initiated Date: [] Patient: Covert,Cherelle gonzalez 63 y/o F admitted on 08/17/19 for Shortness of breath. Chief Complaint: [] Had trouble breathing last night again and she is back on the bipap. Objective - Vital Signs Vital signs: Vital Signs Temp Pulse Pulse Resp BP Pulse Ox 08/23/19 08:01 19 130/44 94 08/23/19 08:00 20 94 08/23/19 07:15 72 20 92 08/23/19 06:01 20 128/83 93 08/23/19 06:00 19 89 L 08/23/19 04:01 98.9 F 22 150/74 95 08/23/19 04:00 19 91 08/23/19 02:01 18 152/72 98 08/23/19 02:00 20 90 08/23/19 00:58 88 90 08/23/19 00:01 99.2 F H 25 H 152/72 90 08/23/19 00:00 23 H 85 L 08/22/19 22:01 18 146/69 89 L 08/22/19 22:00 24 H 88 L 08/22/19 20:21 105 H 22 08/22/19 20:02 19 93 08/22/19 20:01 98.1 F 18 151/88 92 08/22/19 18:45 78 93 08/22/19 18:01 22 149/63 93 08/22/19 16:01 19 143/79 89 L 08/22/19 15:16 19 136/69 95 08/22/19 15:02 18 96 08/22/19 15:01 98.0 F 18 131/58 95 08/22/19 14:33 96.8 F L 66 112/67 08/22/19 14:31 17 112/67 97 08/22/19 14:30 95 08/22/19 14:20 66 119/62 08/22/19 14:16 19 119/62 98 08/22/19 14:03 64 110/63 08/22/19 14:01 17 110/63 97 08/22/19 13:46 64 20 104/61 97 08/22/19 13:31 67 21 101/59 97 08/22/19 13:16 17 103/62 98 08/22/19 13:15 76 103/62 08/22/19 13:05 68 21 08/22/19 13:03 23 H 97/65 08/22/19 13:02 67 93/48 08/22/19 13:01 24 H 93/48 08/22/19 12:49 64 94/65 08/22/19 12:46 23 H 94/65 98 08/22/19 12:33 65 123/62 08/22/19 12:31 21 123/62 96 08/22/19 12:22 62 114/56 08/22/19 12:16 20 114/56 96 08/22/19 12:13 64 24 H 99/56 87 L 08/22/19 12:05 23 H 87/72 80 L 08/22/19 12:01 18 65/50 95 08/22/19 12:00 18 93 08/22/19 11:34 29 H 129/110 95 08/22/19 11:31 28 H 96 08/22/19 11:30 65 129/110 08/22/19 11:29 22 39/26 08/22/19 11:01 21 137/75 92 08/22/19 11:00 62 137/75 08/22/19 10:32 21 165/82 95 08/22/19 10:30 98.7 F 66 165/82 08/22/19 10:02 20 93 08/22/19 10:01 20 171/73 90 08/22/19 10:00 21 90 Intake and Output 08/22/19 08/23/19 08/23/19 21:59 05:59 13:59 Intake Total 510 150 Output Total 3000 Balance -2490 150 Intake: Nourishment/Supplement quantity 120 (ml) Oral 390 150 Output: Hemodialysis UF 3000 Other: Meal Dinner Percent of Meal Consumed 25% Nourishment/Supplement name Ensure Weight 115 lb 4.8 oz Intake & Output: Intake & Output 08/22/19 08/23/19 08/23/19 21:59 05:59 13:59 Intake Total 510 150 Output Total 3000 Balance -2490 150 Weight 115 lb 4.8 oz Intake: Nourishment/Supplement quantity 120 (ml) Oral 390 150 Output: Hemodialysis UF 3000 Other: Meal Dinner Percent of Meal Consumed 25% Nourishment/Supplement name Ensure - General Appearance General appearance: cachectic EENT: ATNC Neck: JVD Cardiology: holosystolic murmur Gastrointestinal: normoactive bowel sounds Integumentary: no rash Neurologic: no focal deficit - Lab 08/22/19 05:05 08/22/19 05:05 Most recent lab results Calcium 9.9 mg/dl (8.6-10.4) 08/22/19 05:05 Phosphorus 2.7 mg/dL (2.7-4.5) 08/22/19 05:05 Magnesium 2.5 mg/dL (1.6-2.5) 08/22/19 05:05 Assessment and Plan (1) End stage chronic kidney disease Status: Acute Comment: Had HD yesterday and tolerated well. Now back on Bipap so will do another UF. I think most of it is respiratory. Constipation. Had good BM. Chest pain. I wonder if this is all esophageal. She had esophageal obstruction in the past. An upper GI might be helpful. I increased the protonix to 40mg po bid.
--- NOTE | 2019-08-23 09:24 | Internal Med Progress Note ---
Medical - PN: Subj Patient information: Note initiated : 08/23/19 at 9:17 am Service Date, if different from initiated Date: [] Patient: Cherelle Mcpherson 63 y/o F admitted on 08/17/19 for Shortness of breath. Chief Complaint: [] Interval history: Ms. Mcpherson is a 63 year old F with a known history of ESRD on HD/poorly controlled hypertension/CHF/CAD status post stenting was brought into the ER after experiencing chest pain during dialysis. Patient work-up in the ER was essentially unremarkable including CT chest however ABG revealed 7.25/60 on 4 L oxygen. Patient was markedly short of breath. Troponins came back at baseline. Patient was probably started on noninvasive ventilation in light of hypercapnic hypoxic respiratory failure. Patient was started on steroids/bronchodilators without adequate relief. Subsequently hospitalist service was consulted. At the time evaluation patient is fatigued lethargic unable to provide any history. Most of the history is obtained from review of medical records. Patient was recently hospitalized from 08/03 and discharged 08/09 with bilateral pneumonia/hypertensive urgency with acute hypoxic story failure. Patient completed 10 days antibiotics and was und ergoing dialysis when she started experience chest pain. She continues to smoke. No history could be obtained from patient. Most of the history was obtained via medical records. No review of systems performed. Patient however denies active chest pain at this time. 08/18-patient now alert and respond to commands. Complains of left-sided upper abdominal pain. Denies nausea diarrhea. Ongoing hemodialysis. No other concerns expressed with nursing staff. Off noninvasive ventilation since 7 AM. Currently on 4 L oxygen. Troponins at baseline, continue IV steroids/bronchodilators. Wean noninvasive ventilation as tolerated. 08/19-patient intermittently on BiPAP. Much improved work of breathing. White count 6.1, potassium 5.6, ongoing hemodialysis per nephrology. CT abdomen: Filled with stool with likely explanation for abdominal pain, no overnight fever chills. ABG improve hypercapnia however 08/20 Patient did require BiPAP for about half an hour last night. Now off and on 4 L nasal cannula. No new complaints. She feels she is at her baseline shortness of breath. Had hemodialysis yesterday. Weaning steroids. 08/21 States she feels crummy but better than yesterday. She was placed on BiPAP last night because she appeared to be exhausted after moving around. But she is now back on nasal cannula. required PRN blood pressure medications last night. 08/22 Has chronic shortness of breath. She feels it is near normal. Requiring 4 to 5 L oxygen mask. Discussed with her hospice introduction yesterday and she was more than agreeable to have a visit with them. 08/23 Patient had to be put back on BiPAP last night. Patient respiratory status and overall state extremely tenuous. Her baseline condition is tenuous as evidenced by her frequent admissions. She has had 6 admissions here at [facility] since early 2018 and at least 1 at [facility] with numerous ED visits. I talked to her about to goals of care. She did state that she would not want to be a full code and change that to DNR status. I also talked to her about how aggressive to be in for how long and also introduced the concept of comfort care. She says she like to talk over with her daughter. Couple days ago she was willing to talk to hospice as well. Review of Systems: Positive shortness of breath. Denies headache/fever/chills/nausea/vomiting/chest or abdominal pain/diarrhea. Otherwise see above. - Constitutional Vitals: Vital Signs Temp Pulse Resp BP Pulse Ox 98.9 F 72 19 130/44 94 08/23/19 04:01 08/23/19 07:15 08/23/19 08:01 08/23/19 08:01 08/23/19 08:01 Period Temp Pulse Resp BP Sys/Talley Pulse Ox Last 24 Hr 96.8 F-99.2 F 62-105 17-29 39-171/26-110 80-98 Intake and Output 08/22/19 08/23/19 08/23/19 21:59 05:59 13:59 Intake Total 510 150 Output Total 3000 Balance -2490 150 Weight 52.299 kg Intake & Output: Intake & Output 08/22/19 08/23/19 08/23/19 21:59 05:59 13:59 Intake Total 510 150 Output Total 3000 Balance -2490 150 Weight 52.299 kg Intake: Nourishment/Supplement quantity 120 (ml) Oral 390 150 Output: Hemodialysis UF 3000 Other: Meal Dinner Percent of Meal Consumed 25% Nourishment/Supplement name Ensure Exam: General: awake on bipap Eyes/N/T: EOMI, , Head/Neck: neck supple, CV: RRR, No murmurs, Pulm: no wheezing today, mildly diminished b/l and mild rhonchi, on bipap Abd: soft, nontender, +BS x4 Ext: no clubbing/cyanosis/edema Neuro: Awake no focal deficits, moves all extremities, Skin: warm/dry Medical - PN: Obj Da - Labs CBC & Chem 7: 08/22/19 05:05 08/22/19 05:05 Labs: Abnormal Lab Results 08/22/19 08/22/19 08/21/19 05:05 05:05 05:15 MCHC RDW 15.6 H MPV Seg Neutrophils % Lymphocytes % Metamyelocytes % 1 H RBC Morphology Abnorm A Polychromasia 1+ A Anisocytosis 1+ A RBC Fragments 1+ A Sodium 130 L Potassium 5.2 H Chloride 89 L 94 L BUN 81 H 58 H Creatinine 5.8 H* 4.3 H Glucose 128 H 228 H GGT 129 H 151 H Lactate Dehydrogenase 268 H Total Protein 5.7 L Globulin 2.0 L Triglycerides 250 H 295 H 08/21/19 05:15 MCHC 30.9 L RDW 15.3 H MPV 10.5 H Seg Neutrophils % 85 H Lymphocytes % 14 L Metamyelocytes % RBC Morphology Abnorm A Polychromasia Few A Anisocytosis Few A RBC Fragments Sodium Potassium Chloride BUN Creatinine Glucose GGT Lactate Dehydrogenase Total Protein Globulin Triglycerides Meds: Medications Acetaminophen (Tylenol) 650 mg PO Q4-6HP PRN; Protocol PRN Reason: Per Pain Protocol/Fever > 101 Last Admin: 08/21/19 03:03 Dose: 650 mg Documented by: Hydrocodone Bitart/Acetaminophen ([place] 5/325mg) 2 tab PO Q6HP PRN; Protocol PRN Reason: Pain Last Admin: 08/23/19 06:44 Dose: 2 tab Documented by: Albuterol/Ipratropium (Duoneb) 3 ml NEB Q6HRT [place] Last Admin: 08/23/19 06:34 Dose: 3 ml Documented by: Alprazolam (Xanax) 0.5 mg PO Q8HP PRN PRN Reason: Anxiety Last Admin: 08/23/19 06:53 Dose: 0.5 mg Documented by: Amlodipine Besylate (Norvasc) 10 mg PO MOWEFR@0500 [facility] Last Admin: 08/22/19 05:14 Dose: 10 mg Documented by: Amlodipine Besylate (Norvasc) 10 mg PO SUTUTHSA@0730 [facility] Last Admin: 08/21/19 07:18 Dose: 10 mg Documented by: Artificial Tears (Artificial Tears Ophth Drops) 1 gtt OU TID [facility] Last Admin: 08/22/19 21:23 Dose: 1 gtt Documented by: Aspirin (Aspirin) 81 mg PO DAILY [facility] Last Admin: 08/22/19 08:30 Dose: 81 mg Documented by: Benzonatate (Tessalon) 200 mg PO TIDP PRN PRN Reason: Cough Last Admin: 08/22/19 03:47 Dose: 200 mg Documented by: Bisacodyl (Dulcolax) 10 mg PA Q2-3DAYS PRN PRN Reason: Constipation Budesonide (Pulmicort) 0.5 mg NEB Q12 [facility] Last Admin: 08/22/19 18:55 Dose: 0.5 mg Documented by: Calcium Acetate (Phoslo) 1,334 mg PO TIDAC [facility] Last Admin: 08/22/19 16:57 Dose: 1,334 mg Documented by: Citalopram Hydrobromide (Celexa) 20 mg PO DAILY [facility] Last Admin: 08/22/19 08:31 Dose: 20 mg Documented by: Clonidine HCl (Catapres Tts 3) 1 patch TD We@1800 [facility] Last Admin: 08/17/19 20:36 Dose: 1 patch Documented by: Clopidogrel Bisulfate (Plavix) 75 mg PO DAILY [facility] Last Admin: 08/22/19 08:30 Dose: 75 mg Documented by: Diagnostic Test (Pha) (Accu-Chek) 1 each FS ACHS [facility] Last Admin: 08/23/19 07:15 Dose: 1 each Documented by: Docusate Sodium (Colace) 100 mg PO BID [facility] Last Admin: 08/22/19 21:23 Dose: 100 mg Documented by: Heparin Sodium (Porcine) (Heparin) 5,000 unit SQ DAILY [facility] Hydralazine HCl (Apresoline) 0 mg IV Q2HP PRN PRN Reason: Hypertension Last Admin: 08/22/19 02:35 Dose: 20 mg Documented by: Acetaminophen (Ofirmev) 650 mg in 65 mls @ 130 mls/hr IV Q6HP PRN; Protocol PRN Reason: Per Pain Protocol/Fever > 101 Insulin Glargine (Lantus) 10 unit SQ DAILY [facility] Last Admin: 08/22/19 08:51 Dose: 10 units Documented by: Insulin Human Lispro (Humalog) 0 unit SQ ACHS [facility]; Protocol Last Admin: 08/23/19 07:41 Dose: Not Given Documented by: Iron Carb/Multivit/Security Incident Handler/Folic Acid (Multivitamin W/Minerals) 1 tab PO DAILY [facility] Last Admin: 08/22/19 08:31 Dose: 1 tab Documented by: Lactobacillus Rhamnosus (Culturelle) 1 cap PO BIDCC [facility] Last Admin: 08/22/19 18:47 Dose: 1 cap Documented by: Lactulose (Cephulac) 30 gm PO DAILYP PRN PRN Reason: Constipation Lactulose (Cephulac) 30 gm PO TID [facility] Last Admin: 08/22/19 21:22 Dose: 30 gm Documented by: Lidocaine (Lidoderm) 1 patch TOPICAL DAILY@1000 [facility] Last Admin: 08/22/19 10:10 Dose: 1 patch Documented by: Lisinopril (Zestril) 20 mg PO BID [facility] Last Admin: 08/22/19 21:23 Dose: 20 mg Documented by: Melatonin (Melatonin 3mg Tablet) 3 mg PO HSP PRN PRN Reason: Insomnia Last Admin: 08/22/19 21:23 Dose: 3 mg Documented by: Metoprolol Tartrate (Lopressor) 50 mg PO BID [facility] Last Admin: 08/22/19 21:23 Dose: 50 mg Documented by: Mupirocin (Bactroban Oint 2%) 1 dose NARES BID [facility] Last Admin: 08/22/19 21:23 Dose: 1 dose Documented by: Nicotine (Nicoderm) 21 mg TOPICAL DAILY@1000 [facility] Last Admin: 08/22/19 10:10 Dose: 21 mg Documented by: Nitroglycerin (Nitrostat) 0.4 mg SL Q5M PRN PRN Reason: Chest Pain Last Admin: 08/22/19 11:35 Dose: 0.4 mg Documented by: Ondansetron HCl (Zofran Odt) 4 mg SL Q4-6HP PRN; Protocol PRN Reason: Nausea And Vomiting Ondansetron HCl (Zofran) 4 mg IV Q4-6HP PRN; Protocol PRN Reason: Nausea And Vomiting Last Admin: 08/23/19 06:55 Dose: 4 mg Documented by: Pantoprazole Sodium (Protonix) 40 mg PO BIDAC [facility] Last Admin: 08/22/19 16:57 Dose: 40 mg Documented by: Polyethylene Glycol (Miralax) 17 gm PO DAILY [facility] Last Admin: 08/22/19 08:29 Dose: 17 gm Documented by: Prednisone (Prednisone) 30 mg PO DAILY [facility] Last Admin: 08/22/19 08:30 Dose: 30 mg Documented by: Senna (Senokot) 1 tab PO BID [facility] Last Admin: 08/22/19 21:23 Dose: 1 tab Documented by: Sodium Chloride (Saline Flush) 10 ml IV Q8 [facility] Last Admin: 08/23/19 06:57 Dose: 10 ml Documented by: Tiotropium Coin (Spiriva) 18 mcg INH DAILY [facility] Last Admin: 08/22/19 08:52 Dose: Not Given Documented by: Trazodone HCl (Desyrel) 50 mg PO HSP PRN PRN Reason: Sleep Last Admin: 08/22/19 21:23 Dose: 50 mg Documented by: Medical - PN: A/P - Time Spent With Patient Total time spent is greater than 50% in coordination of care (as documented) at patient's floor/unit and/or counseling patient: - Narrative A/P Narrative: A: *Acute on chronic hypoxic/hypercapnic respiratory failure: 2/2 AECOPD/pulm fibrosis/and volume overload -Intermittent bipap required, usually requiring at night -CT chest improved from previous *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 harvey outpt *Pulmonary fibrosis: *Pulmonary nodules: stable *ESRD: follows with Tafoya *Anemia, chronic: *h/o dCHF: *DM: *h/o CVA's: *Vascular Dementia: *HTN/HLD: *Depression/anxiety: on sertraline and quetiapine *Tobacco abuse: *Hyperkalemia: per nephrology *Severe constipation with fluid-filled colon likely cause for abdominal pain with tenderness to palpation: Improved *Generalized weakness/deconditioning/debility/failure to thrive: *Goals of care: Poor functional status, multiple hospitalizations, decline. Daughter is POA. P: -family discussion -corticosteroids (wean)/nebs/RT -wean O2 as able -IS/Acapella -Dr. Tafoya for HD/diuretics/BP meds/electrolytes -cont home clonidine/norvasc/lopressor/lasix; -cont ASA/Plavix -Continue bowel regimen -lantus and SSI -pt/ot -Smoking cessation counseling -f/u with pulmonology -hospice eval -ppx: heparin/home ppi Medical - PN: Qual - VTE Deep Vein Thrombosis/Pulmonary Embolism Present on Admission: No
[2019-08-23] MEDS: BUDESONIDE 0.5 MG/2 ML AMPUL.NEB NEB SCH (09:30)
[2019-08-23] MEDS: amLODIPine 10 MG TABLET PO SCH (09:58)
[2019-08-23] MEDS: CALCIUM ACETATE 667 MG CAPSULE PO SCH ×2 (09:58→11:32)
[2019-08-23] MEDS: PANTOPRAZOLE 40 MG TABLET PO SCH (09:58)
[2019-08-23] MEDS: LACTULOSE 20 GM/30 ML ORAL.SOL PO SCH (10:04)
[2019-08-23] MEDS: CITALOPRAM 20 MG TABLET PO SCH (10:04)
[2019-08-23] MEDS: METOPROLOL TARTRATE 50 MG TABLET PO SCH (10:04)
[2019-08-23] MEDS: ASPIRIN 81 MG TAB.CHEW PO SCH (10:04)
[2019-08-23] MEDS: CLOPIDOGREL 75 MG TABLET PO SCH (10:04)
[2019-08-23] MEDS: MULTIVIT,THER IRON,CA,FA & MIN 1 TABLET PO SCH (10:04)
[2019-08-23] MEDS: INSULIN GLARGINE, HUMAN 1 UNIT/0.01 ML SQ SCH (10:05)
[2019-08-23] MEDS: POLYETHYLENE GLYCOL 3350 17 GM PACKET PO SCH (10:05)
[2019-08-23] MEDS: DOCUSATE SODIUM 100 MG CAPSULE PO SCH (10:06)
[2019-08-23] MEDS: TIOTROPIUM BROMIDE 18 MCG INHALANT INH SCH (10:07)
[2019-08-23] MEDS: LISINOPRIL 20 MG TABLET PO SCH (10:07)
[2019-08-23] MEDS: predniSONE 10 MG TABLET PO SCH (10:07)
[2019-08-23] MEDS: LACTOBACILLUS 1 CAPSULE PO SCH (10:11)
[2019-08-23] MEDS: SENNOSIDES 1 TABLET PO SCH (10:11)
[2019-08-23] MEDS: LIDOCAINE PATCH TOPICAL SCH (10:12)
[2019-08-23] MEDS: MUPIROCIN OINT 2% 22GM NARES SCH (10:12)
[2019-08-23] MEDS: POLYVINYL ALCOHOL OPHTH DROPS 15ML BOTTLE OU SCH (10:12)
[2019-08-23] MEDS: NICOTINE 21 MG PATCH TOPICAL SCH (10:12)
[2019-08-23] MEDS ORDERED: DEXTROSE 10 % IN WATER 1,000 ML IV SCH (10:45)
[2019-08-23] MEDS ORDERED: LACTOPEROXI/GLUC OXID/POT THIO 1 EACH GEL..EA. TOPICAL PRN (14:35)
[2019-08-23] MEDS ORDERED: ONDANSETRON 4 MG/2 ML VIAL IV PRN (14:35)
[2019-08-23] MEDS: LORazepam 2 MG/ML VIAL IV PRN ×4 (14:54→22:55)
[2019-08-24] MEDS: LORazepam 2 MG/ML VIAL IV PRN ×3 (00:25→05:16)
[2019-08-24] MEDS: 0.9 % SODIUM CHLORIDE 10 ML SYRINGE IV SCH (05:16)
--- NOTE | 2019-08-24 08:14 | Death Note ---
Discharge Sum: Prov - Provider Patient information: Note initiated : 08/24/19 at 8:13 am Service Date, if different from initiated Date: [] Patient: Cherelle Mcpherson 63 y/o F admitted on 08/17/19 for Shortness of breath. Chief Complaint: [] Primary care physician: Leta Araujo Consults: 08/17/19 Consult to Physician [CONS] Stat Comment: Consulting Provider: Marshall Altamirano Reason For Exam: Physician to Consult 08/18/19 16:34 Consult to Physician [CONS] Routine Comment: Consulting Provider: Nathan Tafoya Reason For Exam: Physician to Consult 08/24/19 07:54 Consult to Physician [CONS] Routine Comment: [employer] Consulting Provider: Fany AngelLife Reason For Exam: Physician to Consult Discharge Sum: Summary - Date and Time Date of admission: 08/17/19 17:08 Date of : 08/24/19 Time of : 05:45 - Summary Details: Ms. Mcpherson is a 63 year old F with a known history of ESRD on HD/poorly controlled hypertension/CHF/CAD status post stenting was brought into the ER after experiencing chest pain during dialysis. Patient work-up in the ER was essentially unremarkable including CT chest however ABG revealed 7.25/60 4/32 on 4 L oxygen. Patient was markedly short of breath. Troponins came back at baseline. Patient was probably started on noninvasive ventilation in light of hypercapnic hypoxic respiratory failure. Patient was started on steroids/bronchodilators without adequate relief. Subsequently hospitalist service was consulted. At the time evaluation patient is fatigued lethargic unable to provide any history. Most of the history is obtained from review of medical records. Patient was recently hospitalized from 08/03 and discharged 08/09 with bilateral pneumonia/hypertensive urgency with acute hypoxic story failure. Patient completed 10 days antibiotics and was undergoing dialysis when she started experience chest pain. She continues to smoke. No history could be obtained from patient. Most of the history was obtained via medical records. No review of systems performed. Patient however denies active chest pain at this time. 08/18-patient now alert and respond to commands. Complains of left-sided upper abdominal pain. Denies nausea diarrhea. Ongoing hemodialysis. No other concerns expressed with nursing staff. Off noninvasive ventilation since 7 AM. Currently on 4 L oxygen. Troponins at baseline, continue IV steroids/bronchodilators. Wean noninvasive ventilation as tolerated. 08/19-patient intermittently on BiPAP. Much improved work of breathing. White count 6.1, potassium 5.6, ongoing hemodialysis per nephrology. CT abdomen: Filled with stool with likely explanation for abdominal pain, no overnight fever chills. ABG improve hypercapnia however 08/20 Patient did require BiPAP for about half an hour last night. Now off and on 4 L nasal cannula. No new complaints. She feels she is at her baseline shortness of breath. Had hemodialysis yesterday. Weaning steroids. 08/21 States she feels crummy but better than yesterday. She was placed on BiPAP last night because she appeared to be exhausted after moving around. But she is now back on nasal cannula. required PRN blood pressure medications last night. 08/22 Has chronic shortness of breath. She feels it is near normal. Requiring 4 to 5 L oxygen mask. Discussed with her hospice introduction yesterday and she was more than agreeable to have a visit with them. 08/23 Patient had to be put back on BiPAP last night. Patient respiratory status and overall state extremely tenuous. Her baseline condition is tenuous as evidenced by her frequent admissions. She has had 6 admissions here at [facility] since early 2018 and at least 1 at [facility] with numerous ED visits. I talked to her about to goals of care. She did state that she would not want to be a full code and change that to DNR status. I also talked to her about how aggressive to be in for how long and also introduced the concept of comfort care. She says she like to talk over with her daughter. Couple days ago she was willing to talk to hospice as well. Had a long conversation with Liz this morning. About her current condition, comorbidities, and long-term prognosis. We talked goals of care and how long to pursue treatment especially given the current situation where she seems to be stepping backwards and now requiring more BiPAP and unable to get her off it today. She said she would like to talk to her daughter. When her daughter arrived I spent some time talking with her and family and about the current situation as well her multiple hospitalizations over the past year. Her daughter then spent some time talking with Liz in her room and after that conversation she came out and talk to the nurse and said to have been decided that comfort care would be the focus of direction. We will transition her to comfort care only status and move her to a larger room in the hallway where family can more easily visit. 08/24 Patient at 054 5 hours this morning, family present. 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 - Additional Data Attending physician: Marshall Altamirano
[2019-08-24] MEDS ORDERED: HEPARIN 5,000 UNIT/ML VIAL SQ SCH (09:00)
== END 2019-08-24 05:45 | disposition expired | DRG 189 ==
LOC: ED 09:40 → ICU 17:08 → MEDSUR 08-23 18:19
PROVIDERS: ADMIT Internal Medicine; ATTEND Internal Medicine